=== PATIENT | male | born 1935 | race Caucasian/White ===

== ENCOUNTER → 2020-05-28 12:25 | Outpatient (REF) | payer MEDICARE, SELFPAY ==
--- NOTE | 2020-05-28 13:00 | CA_ITS ---
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 Moderately dilated left ventricle with severe LV systolic dysfunction with LVEF of 15-20% with multiple regional wall motion abnormality with grade 3 diastolic dysfunction 2. Moderate left atrial enlargement 3. Moderate to severe mitral regurgitation 4. Mildly elevated right ventricular systolic pressure 5. Mild aortic regurgitation 6. No pericardial effusion Findings Left Ventricle Moderately increased left ventricular cavity size. There is normal left ventricular wall thickness. The left ventricular systolic function is severely decreased. There is evidence of regional wall motion abnormalities. Spectral Doppler is indicative of a restrictive filling pattern. E/E prime ratio is >15, consistent with elevated filling pressures. Evidence suggests grade III (severe) diastolic dysfunction. Wall Motion Rest Echo Findings The anterior wall, entire lateral wall, the apical inferior, mid inferior, basal inferoseptal, basal anteroseptal, and mid anteroseptal segments are hypokinetic. The basal inferior, apical septum, and mid inferoseptal segments are akinetic. The apex segment is dyskinetic. Right Ventricle Normal right ventricular cavity size and systolic function. Atria The left atrium is moderately dilated. There is no evidence of interatrial shunt. The right atrium is mildly dilated. Aortic Valve The aortic valve was not well visualized. There is no aortic valve stenosis. There is mild aortic valve regurgitation. Mitral Valve There is mild anterior and posterior mitral leaflet thickening. There is moderate to severe mitral valve regurgitation. There is no mitral valve stenosis. There is moderate mitral annular dilatation. Pulmonic Valve The pulmonic valve is likely normal. There is trace pulmonic valve regurgitation. Tricuspid Valve Normal tricuspid valve structure. There is mild tricuspid valve regurgitation. Mild pulmonary hypertension is present. Great Vessels All visible segments of the aorta are normal in size. The pulmonary artery was not well visualized. Venous The inferior vena cava is normal in size and collapses greater than 50% with inspiration. Pericardium/Pleural There is no evidence of pericardial effusion. Prior Study Comparison No significant change compared to prior study dated: 05/23/2019. Measurements 2D Linear Measurements IVSd: 1.14 0.6-0.9/0.6-1.0 cm LVIDd: 6.62 3.9-5.3/4.2-5.9 cm LVIDd Index: 3.94 2.4-3.2/2.2-3.1 cm/m2 LVIDs: 6.13 2.0-3.6 cm LVPWd: 1.17 0.7-1.1 cm Ao Root: 3.20 2.1-3.5 cm LA Diam: 5.50 2.7-3.8/3.0-4.0 cm LAIDs Index: 3.27 1.5-2.3 cm/m2 LV Mass: 438.88 67-162/88-224 g LV Mass Index: 261.24 43-95/49-115 g/m2 LVOT Diam: 2.10 3.0+(-)1.3 cm 2D Systolic Function EF 4C: 16.20 >55% EF 2C: 16.40 >55% EF BiP: 14.10 >55% Mitral Valve MV Pk E: 1.44 MV PK A: 0.65 MV Decel Time: 165.00 E/A: 2.20 E'Lateral: 4.45 E'Medial: 5.22 E/E' Med: 27.60 E/E' Lat: 32.40 PHT: 48.00 MVA PHT: 4.58 Decel [place]: 8.71 Aortic Valve AoV Pk Kleber: 1.32 AoV Mn Kleber: 0.97 AoV VTI: 0.26 AoV Pk Grad: 7.00 Aov Mn Grad: 4.00 TAMIR Cont.VTI: 2.20 LVOT LVOT Pk Kleber: 0.88 LVOT Mn Kleber: 0.52 LVOT VTI: 0.16 LVOT Pk Grad: 3.00 LVOT Mn Grad: 1.00 LVOT Diam: 2.10 LVOT Area: 3.46 Diastolic Function MV Pk E: 1.44 MV Pk A: 0.65 E/A: 2.20 E'Medial: 5.22 E/E' Med: 27.60 E' Laterial: 4.45 E/E' Lat: 32.40 Tricuspid Valve TR Pk Kleber: 3.17 TR Pk Grad: 40.00 RA Press: 3.00 RVSP: 43.00 Great Vessels Aorta Ao Root-2D: 3.20 2.0-3.7 cm Ao Asc: 3.10 2.1-3.4 cm Pulmonary Valve PV Pk Kleber: 0.90 Peak PV Grad: 3.00 Updated in Other Vendor System with Status of Final Martínez Rushing MD electronically signed on 05/28/2020 3:06:25 PM with status of Final
== END ==
LOC: HO.CARD 12:25
PROVIDERS: PCP Family Medicine; Visit Provider Internal Medicine Cardiovascular Disease
DX: I50.9 Heart failure, unspecified (principal); I25.5 Ischemic cardiomyopathy; I25.10 Atherosclerotic heart disease of native coronary artery without angina pectoris; Z95.1 Presence of aortocoronary bypass graft
CPT/HCPCS: 93225; 93226; 93306

== ENCOUNTER → 2020-06-02 12:59 | Outpatient (BNVA) | payer MEDICARE, SELFPAY | PROVIDERS: Visit Provider Internal Medicine Cardiovascular Disease | DX: I20.8 Other forms of angina pectoris (principal); I50.22 Chronic systolic (congestive) heart failure; I25.5 Ischemic cardiomyopathy; Z95.1 Presence of aortocoronary bypass graft | CPT/HCPCS: 93005; 99212 ==

== ENCOUNTER → 2020-06-10 09:45 | Outpatient (REF) | payer MEDICARE, SELFPAY ==
--- NOTE | 2020-06-10 | NM_ITS ---
Myocardial perfusion study Indication: Chest discomfort with ischemic cardiomyopathy to evaluate for myocardial ischemia Technique: The patient was brought in for a Lexiscan perfusion study on 06/10/2020. Patient performed low-level exercise and was injected 0.4 mg of Lexiscan intravenously. Within a minute of injection, 25 mCi of sestamibi was given intravenously. Images were obtained using the SPECT gamma camera interlaced with the gating device. Images were obtained in supine position. Resting perfusion study was performed on 06/12/2020. Patient was administered any 5 mCi of sestamibi intravenously at rest. Images were then obtained in supine position. Images obtained with and without CT attenuation. Total DLP 65 mGy-cm. Images were processed with the software and compared side to side in short axis, horizontal long axis and vertical long axis views. Findings: The stress perfusion study showed large area of absent uptake in the distal anterior, apex and inferoapical distal septum of LV myocardium. Mildly to moderately reduced uptake in the mid and inferior wall of the LV myocardium. Absent uptake in the distal lateral and mildly reduced uptake in the mid and basal inferolateral and lateral wall of the LV myocardium. The gated study shows severely reduced LV systolic function with calculated LVEF of 19%. LV cavity is severely dilated size. The gated study shows severe hypokinesis of all segments and akinesis of the apex and adjacent area.. Resting study shows minimal redistribution some areas of the LV myocardium.. Gating at rest reveals diffuse wall motion hypokinesis with ejection fraction at 20%. 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 NM/NM alexandra perf SPECT rest & str Impression: 1. Myocardial perfusion imaging study shows large area of infarcted myocardium 2. Gated LVEF is 19% 3. Transient ischemic dilatation not present but LV cavity is dilated EKG is nondiagnostic for ischemia
--- NOTE | 2020-06-10 09:50 | CA_ITS ---
Acquisition Time: 2020-06-10 11:16:42 Total Exercise Time: 00:02:00 Test Indications: Chest Pain Medications: Protocol: LEXISCAN Max HR: 093 BPM 68% of Pred: 136 BPM Max BP: 108/062 mmHG Max Work Load: 1.0 METS Pharmacological stress test using Lexiscan while sitting. Pt tolerated well. Denies any anginal sx. EKG with incomplete LBBBand PVC's. Non-diagnostic for ischemia. Nuclear images to follow. Normotensive response to test. Test reviewed with Dr. Shearer. Referred By: Martínez Rushing Overread By: Karen Mina
== END ==
LOC: HO.CARD 09:45
PROVIDERS: Visit Provider Internal Medicine Cardiovascular Disease
DX: I25.5 Ischemic cardiomyopathy (principal); I20.8 Other forms of angina pectoris
CPT/HCPCS: 78452; 93017; A9500; J0280; J2785

== ENCOUNTER → 2020-06-20 10:50 | Outpatient (BNVA) | payer MEDICARE, SELFPAY | PROVIDERS: PCP Family Medicine; Visit Provider Internal Medicine Cardiovascular Disease | DX: I50.22 Chronic systolic (congestive) heart failure (principal); I25.5 Ischemic cardiomyopathy; I25.10 Atherosclerotic heart disease of native coronary artery without angina pectoris; R06.02 Shortness of breath | CPT/HCPCS: 99212 ==

== ENCOUNTER → 2020-07-17 09:06 | Outpatient (BNVA) | payer MEDICARE, SELFPAY | PROVIDERS: PCP Family Medicine; Visit Provider Internal Medicine Pulmonary Disease | DX: J44.9 Chronic obstructive pulmonary disease, unspecified (principal); R06.02 Shortness of breath | CPT/HCPCS: 99202 ==

== ENCOUNTER 2020-07-22 10:07 | Outpatient (REF) | payer MEDICARE, SELFPAY ==
[2020-07-22 13:53] LABS: Hematocrit 40.8 % (42-52); Hemoglobin 13.3 g/dl (14.0-18.0); Mean Corpuscular HGB Conc 32.6 g/dl (31.0-36.0); Mean Corpuscular Hemoglobin 33.3 pg (27.0-33.0); Mean Corpuscular Volume 102.3 fL (80-98); Mean Platelet Volume 11.4 fL (9.4-12.4); Platelet Count 143 X10*3/uL (160-400); Red Blood Count 3.99 X10*6/uL (4.60-5.80); Red Cell Distribution Width 14.7 % (11.0-16.0); White Blood Count 4.7 X10*3/uL (4.8-10.8)
[2020-07-22 13:59] LABS: INTERNATIONAL NORM RATIO 1.1 (0.9-1.1); Prothrombin Time 13.1 SEC (10.8-13.0)
[2020-07-22 14:13] LABS: Anion Gap 15 (12-20); Blood Urea Nitrogen 27 mg/dL (9-16); Calcium 9.2 mg/dL (8.4-10.2); Carbon Dioxide 28 mmol/L (22-29); Chloride 104 mmol/L (96-108); Estimated Glomerular Filt Rate 55; Glucose Random 252 mg/dL (60-115); Potassium 3.8 mmol/l (3.3-5.1); Sodium 143 mmol/L (135-145)
[2020-07-22 14:24] LABS: B Type Natriuretic Peptide 2547 pg/mL (<100)
== END 2020-07-22 10:08 | disposition home or self-care (01) ==
LOC: HO.LAB 10:07
PROVIDERS: PCP Family Medicine; Visit Provider Internal Medicine Cardiovascular Disease
DX: R06.02 Shortness of breath (principal); I20.8 Other forms of angina pectoris; I50.22 Chronic systolic (congestive) heart failure; I34.0 Nonrheumatic mitral (valve) insufficiency; I25.5 Ischemic cardiomyopathy; I25.10 Atherosclerotic heart disease of native coronary artery without angina pectoris; Z79.899 Other long term (current) drug therapy; Z79.82 Long term (current) use of aspirin
CPT/HCPCS: 36415; 80048; 83880; 85027; 85610; 93005; 99212

== ENCOUNTER 2020-08-01 09:09 | Outpatient (REF) | payer MEDICARE, SELFPAY ==
--- NOTE | 2020-08-01 09:14 | XR_ITS ---
EXAMINATION: XR CHEST CLINICAL INFORMATION: COPD. COMPARISON: Chest 10/11/2018 TECHNIQUE: 2 views of the chest were obtained. FINDINGS: There is mild cardiomegaly with evidence of previous CABG. The lungs are expanded with patchy opacity seen in the left lung base retrocardiac area likely infiltrate/atelectasis or combination. Rest of lungs are well-expanded and clear. No gross bony abnormality seen. XR/XR chest 2V IMPRESSION: Cardiomegaly with left lower lobe infiltrate/atelectasis. CABG changes, unchanged to chest x-ray 10/11/2018 exam.
== END 2020-08-01 09:10 | disposition home or self-care (01) ==
LOC: HO.RESP 09:09
PROVIDERS: PCP Family Medicine; Visit Provider Internal Medicine Pulmonary Disease
DX: J44.9 Chronic obstructive pulmonary disease, unspecified (principal)
CPT/HCPCS: 71046

== ENCOUNTER 2020-08-06 08:48 | Inpatient (IN) | payer MEDICARE, SELFPAY ==
[2020-08-06] VITALS (7 sets, daily range): BP systolic 97–123; BP diastolic 50–76; PULSE 64–92; RESP 16–28; TEMP 36.7; O2SAT 9–98; BMI 28.3
--- NOTE | 2020-08-06 09:02 | ED.CHESTPAIN ---
HPI - Chest Pain General Chief Complaint: Syncope <Kj Melchor NP - Last Filed: 08/08/20 12:28> Stated Complaint: CHEST PAIN <Kj Melchor NP - Last Filed: 08/08/20 12:28> Time Seen by Provider: 08/06/20 09:00 <Kj Melchor NP - Last Filed: 08/08/20 12:28> Source: EMS <Kj Melchor NP - Last Filed: 08/08/20 12:28> Mode of arrival: EMS <Kj Melchor NP - Last Filed: 08/08/20 12:28> Limitations: no limitations <Kj Melchor NP - Last Filed: 08/08/20 12:28> History of Present Illness HPI narrative: Mr. Walt Covington is a pleasant but poor historian 85-year-old male with history that is significant for coronary artery disease status post OR multiple stenting as well as recent catheterization that showed patent stents, chronic heart failure with reduced ejection fraction, chronic obstructive pulmonary disease, diabetes, hyperlipidemia, mitral valve regurgitation along with other history as noted below he comes in today for having chest pain this morning after ambulating from his apartment to the front of the building and having severe pain in the left-sided chest resulting him to lower himself to the ground from the billing pedestrians help him sit up and EMS was called. Reports he gets these pains for a while now he has seen convalescent sitter and is not sure what medication he is taking. Most history is gathered from EMR and previous cardiology visit. <Kj Melchor NP - Last Filed: 08/08/20 12:28> MD complaint: chest pain <Kj Melchor NP - Last Filed: 08/08/20 12:28> Pertinent past history: coronary artery disease, asthma and CABG <Kj Melchor NP - Last Filed: 08/08/20 12:28> Onset (ago): hour(s) <Kj Melchor NP - Last Filed: 08/08/20 12:28> Timing of current episode: episodic and now resolved <Kj Melchor NP - Last Filed: 08/08/20 12:28> Prior episodes: Yes <Kj Melchor NP - Last Filed: 08/08/20 12:28> Onset: during exertion <Kj Melchor NP - Last Filed: 08/08/20 12:28> Pain location: substernal <Kj Melchor NP - Last Filed: 08/08/20 12:28> Pain radiation: none <Kj Melchor NP - Last Filed: 08/08/20 12:28> Severity: severe <Kj Melchor NP - Last Filed: 08/08/20 12:28> Quality: tightness <Kj Melchor NP - Last Filed: 08/08/20 12:28> Relieving factors: other (Rest , ASA ) <Kj Melchor NP - Last Filed: 08/08/20 12:28> Exacerbating factors: exertion <Kj Melchor NP - Last Filed: 08/08/20 12:28> Treatment prior to arrival: aspirin <Kj Melchor NP - Last Filed: 08/08/20 12:28> Related Data Home Medications: Home Medications Medication Instructions Recorded Confirmed aspirin 81 mg tablet,delayed 81 mg PO DAILY 06/02/20 08/06/20 release atorvastatin 80 mg tablet 80 mg PO DAILY 06/02/20 08/06/20 cholecalciferol (vitamin D3) 50 50 mcg PO DAILY 06/02/20 08/06/20 mcg (2,000 unit) capsule famotidine 20 mg tablet 20 mg PO DAILY 06/02/20 08/06/20 furosemide 80 mg tablet 80 mg PO DAILY tab 06/02/20 08/06/20 glipizide 5 mg tablet 5 mg PO DAILY 06/02/20 08/06/20 metoprolol succinate 50 mg 50 mg PO DAILY 06/02/20 08/06/20 tablet,extended release 24 hr sacubitril 24 mg-valsartan 26 mg 1 tab PO BID 06/02/20 08/06/20 tablet Combivent Respimat 1 puff INHALATION QID 08/06/20 08/06/20 Previous Rx's Medication Instructions Recorded tiotropium 2.5 mcg-olodaterol 2.5 2 puff INHALATION DAILY 30 Days #1 07/17/20 mcg/actuation mist for inhalation ea ranolazine 500 mg tablet,extended 500 mg PO BID #60 tab 07/22/20 release,12 hr isosorbide mononitrate 30 mg 30 mg PO QAM #30 tab 08/05/20 tablet,extended release 24 hr nitroglycerin 0.4 mg sublingual 0.4 mg SUBLINGUAL Q5M PRN #20 tab 08/15/20 tablet <Kj Melchor NP - Last Filed: 08/08/20 12:28> Allergies/Adverse Reactions: Allergies Allergy/AdvReac Type Severity Reaction Status Date / Time No Known Allergies Allergy Unknown NOT Verified 08/14/20 10:03 APPLICABLE <Kj Melchor NP - Last Filed: 08/08/20 12:28> Review of Systems Review of Systems: Constitutional: No Weight loss, No Fever, No Chills, No Night Sweats, No Fatigue, No Malaise ENT/Mouth: No Hearing loss, No Ear Pain, No Nasal Congestion, No Sinus Pain, No Hoarseness, No sore throat, No Rhinorrhea, No Swallowing Difficulty Eyes: No Eye Pain, No Swelling, No Redness, No Foreign Body, No Discharge, No Vision Changes Cardiovascular: As noted per HPI, No Orthopnea, No Edema, No Palpitations Respiratory: No Cough, No Sputum, No Wheezing, No Smoke Exposure, No Dyspnea Gastrointestinal: No Nausea, No Vomiting, No Diarrhea, No Constipation, No abdominal Pain, No Hematochezia, No Melena Genitourinary: no irregular bleeding, No Dysuria, No Urinary Frequency, No Hematuria, No Urinary Incontinence, No Urgency, No Flank Pain, No Urinary Flow Musculoskeletal: No joint pain, No Myalgias, No Joint Swelling Skin: No Skin Lesions, No rash Neuro: No Weakness, No Numbness, No Paresthesias, No Loss of Consciousness, No Dizziness, No Headache Psych: No Social Issues Heme/Lymph: No Bruising, No Bleeding,No Lymphadenopathy Endocrine: No Polyuria, No Polydipsia, No Temperature Intolerance <Kj Melchor NP - Last Filed: 08/08/20 12:28> Yes all other systems are reviewed and are negative <Kj Melchor NP - Last Filed: 08/08/20 12:28> [facility] Past Medical History Medical History: Medical History (Updated 08/07/20 @ 15:33 by Ramin Shearer MD) Atherosclerotic cardiovascular disease CAD (coronary artery disease) Chronic HFrEF (heart failure with reduced ejection fraction) COPD (chronic obstructive pulmonary disease) Diabetes mellitus History of myocardial infarction Hyperlipidemia Ischemic cardiomyopathy LBBB (left bundle branch block) Mitral regurgitation Nonrheumatic mitral valve regurgitation <Kj Melchor NP - Last Filed: 08/08/20 12:28> Surgical History: Surgical History (Updated 08/07/20 @ 15:33 by Ramin Shearer MD) S/P CABG x 3 <Kj Melchor NP - Last Filed: 08/08/20 12:28> Family History Family History: Family History Father No problems noted. Mother No problems noted. <Kj Melchor NP - Last Filed: 08/08/20 12:28> Social History Social History: Social History Household Members: None Housing: Apartment Smoking Status: Former smoker Tobacco Type: Cigarette service: No Current occupational status: retired <Kj Melchor NP - Last Filed: 08/08/20 12:28> Physical Exam Vital Signs: Vital Signs: Last Vital Signs Temp 98.3 F 08/09/20 11:23 Pulse 73 08/09/20 11:23 Resp 20 08/09/20 11:23 BP 92/60 08/09/20 11:23 Pulse Ox 93 08/09/20 11:23 Body Mass Index 28.3 Reviewed <Kj Melchor NP - Last Filed: 08/08/20 12:28> Vital Signs: Last Vital Signs Temp 98.3 F 08/09/20 11:23 Pulse 73 08/09/20 11:23 Resp 20 08/09/20 11:23 BP 92/60 08/09/20 11:23 Pulse Ox 93 08/09/20 11:23 Body Mass Index 28.3 <Eduard Vences MD - Last Filed: 08/25/20 06:41> Const: General: cooperative and healthy appearing; No acute distress or intoxicated appearing <Kj Melchor NP - Last Filed: 08/08/20 12:28> Nutritional Appearance: average body habitus <Kj Melchor NP - Last Filed: 08/08/20 12:28> Orientation/consciousness: patient oriented x3 <Kj Melchor NP - Last Filed: 08/08/20 12:28> HENMT: Head: Yes normal to inspection <Kj Melchor, GENER[employer] - Last Filed: 08/08/20 12:28> Ears: hearing grossly normal bilaterally <Kj Melchor - Last Filed: 08/08/20 12:28> Eyes: General: appearance normal, both eyes and all related structures <[facility] Melchor, - Last Filed: 08/08/20 12:28> Visual Hameed: normal visual hameed by confrontation <[facility] Melchor - Last Filed: 08/08/20 12:28> Neck: Neck: Yes normal visual inspection, No positive Brudzinski's sign, No positive Kernig's sign and No tender <[facility] Melchor, - Last Filed: 08/08/20 12:28> Thyroid: Thyroid normal <[facility] Melchor, - Last Filed: 08/08/20 12:28> Chest: Chest palpation & inspection: normal inspection of the chest <Kj Jill - Last Filed: 08/08/20 12:28> Resp: Effort & Inspection: normal respiratory effort <Kj Melchor, - Last Filed: 08/08/20 12:28> Auscultation: crackles on the right and on the left <Kj Melchor, - Last Filed: 08/08/20 12:28> Cardio: Jugular venous distension: no JVD <[facility] Melchor, - Last Filed: 08/08/20 12:28> Rhythm: regular rhythm <[facility] Jill - Last Filed: 08/08/20 12:28> Heart sounds: S1 normal heart sound present and S2 normal heart sound present <[facility] Melchor, - Last Filed: 08/08/20 12:28> GI: Inspection: Yes normal to inspection <[facility] Jill [employer] - Last Filed: 08/08/20 12:28> Percussion: Yes normal to percussion <[facility] Melchor, - Last Filed: 08/08/20 12:28> Auscultation: normal bowel sounds <[facility] Jill - Last Filed: 08/08/20 12:28> : General: Yes no CVA tenderness <Kj Melchor NP - Last Filed: 08/08/20 12:28> Back/Spine/Pelvis: Back: no CVA tenderness <Kj Melchor NP - Last Filed: 08/08/20 12:28> Skin: General skin exam: no rashes or lesions noted <Kj Melchor NP - Last Filed: 08/08/20 12:28> Neuro: General: patient oriented x3 <Kj Melchor NP - Last Filed: 08/08/20 12:28> Extrem: General: Yes normal to inspection <Kj Melchor NP - Last Filed: 08/08/20 12:28> Course Course Course Narrative: I have reviewed the chart <Eduard Vences MD - Last Filed: 08/25/20 06:41> Consultations Consultation #1: Case discussed with Dr. Rushing who is very familiar with the patient suspicion for some medication compliance given that he has BNP is been trending up. Recommendation for admission he is post be on Lasix 80 mg b.i.d. he was on 80 prior to this. He did have a cardiac catheterization done a month ago prior to that echo several months prior to that. <Kj Melchor NP - Last Filed: 08/08/20 12:28> Consultation #2: Case discussed with the [facility] hospitalist for admission. <Kj Melchor NP - Last Filed: 08/08/20 12:28> MDM - Chest Pain Differential Diagnosis Differential diagnosis: Likely unstable angina pectoris, atypical chest pain and chest pain; Unlikely fracture of rib, pneumothorax, stable angina, st elevation myocardial infarction, costochondritis and biliary colic <Kj Melchor NP - Last Filed: 08/08/20 12:28> Differential diagnosis: CHF <Kj Melchor NP - Last Filed: 08/08/20 12:28> Medical Records Data Attestation: I reviewed the patient's medical records. <Kj Melchor NP - Last Filed: 08/08/20 12:28> Lab Data Attestation: I reviewed the patient's lab results. <Kj Melchor NP - Last Filed: 08/08/20 12:28> Result diagrams: : 08/07/20 06:18 02/06/21 06:08 <Kj Melchor NP - Last Filed: 08/08/20 12:28> Labs: Lab Results 08/06/20 08/06/20 08/06/20 Range/Units 09:37 09:37 09:37 WBC 5.1 (4.8-10.8) X10*3/uL RBC 4.08 L (4.60-5.80) X10*6/uL Hgb 13.5 L (14.0-18.0) g/dl Hct 40.7 L (42-52) % MCV 99.8 H (80-98) fL MCH 33.1 H (27.0-33.0) pg MCHC 33.2 (31.0-36.0) g/dl RDW 14.6 (11.0-16.0) % Plt Count 123 L (160-400) X10*3/uL MPV 11.9 (9.4-12.4) fL Immature Gran % (Auto) 0.2 (0.0-0.4) % Neut % (Auto) 57.8 (45-73) % Lymph % (Auto) 27.6 (20-40) % [place] % (Auto) 10.7 (2-11) % Eos % (Auto) 2.7 (0-4) % Baso % (Auto) 1.0 (0-2) % Lymph # (Auto) 1.4 (1.2-4.9) X10*3/uL [place] # (Auto) 0.6 (0.1-1.2) X10*3/uL Eos # (Auto) 0.1 (0.0-0.4) X10*3/uL Baso # (Auto) 0.1 (0.0-0.2) X10*3/uL Abs Immat Gran (auto) 0.01 (0.00-0.03) X10*3/uL Absolute Neuts (auto) 3.0 (2.0-8.3) X10*3/uL Absolute Nucleated RBC 0.000 (0.0-0.012) X10*3/uL Nucleated RBC % (auto) 0.0 (0.0-0.2) /100WBC PT 13.6 H (10.8-13.0) SEC INR 1.1 (0.9-1.1) APTT 31.7 (24.1-38.0) SEC D-Dimer 679 NG/ML Sodium 141 (135-145) mmol/L Potassium 3.8 (3.3-5.1) mmol/L Chloride 104 (96-108) mmol/L Carbon Dioxide 24 (22-29) mmol/L Anion Gap 17 (12-20) BUN 19 H (9-16) mg/dL Creatinine 1.34 (0.5-1.4) mg/dL Estim Creat Clear Calc 37.9 Estimated GFR 51 Random Glucose 200 H (60-115) mg/dL Calcium 8.5 D (8.4-10.2) mg/dL Total Bilirubin 1.7 H (0.0-1.0) mg/dL AST 18 (5-37) U/L ALT 23 (0-40) U/L Alkaline Phosphatase 74 (39-117) U/L Troponin I High Sens (<3.5-35.0) ng/L B-Natriuretic Peptide (<100) pg/mL Total Protein 6.0 L (6.5-8.0) g/dL Albumin 3.7 (3.5-5.0) g/dL Urine Color Urine Appearance Urine pH (5.0-8.0) Ur Specific [place] (1.005-1.025) Urine Protein (NEG-TRACE) MG/DL Urine Glucose (UA) (NEG) MG/DL Urine Ketones (NEG) MG/DL Urine Blood (NEG) Urine Nitrite (NEG) Ur Leukocyte Esterase (NEG) Urine RBC (0) /HPF Urine WBC (0-4) /HPF Ur Squamous Epith Cells /LPF Urine Bacteria /LPF COVID-19 (PETE) (Negative) COVID-19 Clin Com 08/06/20 08/06/20 08/06/20 Range/Units 09:37 09:37 09:37 WBC (4.8-10.8) X10*3/uL RBC (4.60-5.80) X10*6/uL Hgb (14.0-18.0) g/dl Hct (42-52) % MCV (80-98) fL MCH (27.0-33.0) pg MCHC (31.0-36.0) g/dl RDW (11.0-16.0) % Plt Count (160-400) X10*3/uL MPV (9.4-12.4) fL Immature Gran % (Auto) (0.0-0.4) % Neut % (Auto) (45-73) % Lymph % (Auto) (20-40) % [place] % (Auto) (2-11) % Eos % (Auto) (0-4) % Baso % (Auto) (0-2) % Lymph # (Auto) (1.2-4.9) X10*3/uL [place] # (Auto) (0.1-1.2) X10*3/uL Eos # (Auto) (0.0-0.4) X10*3/uL Baso # (Auto) (0.0-0.2) X10*3/uL Abs Immat Gran (auto) (0.00-0.03) X10*3/uL Absolute Neuts (auto) (2.0-8.3) X10*3/uL Absolute Nucleated RBC (0.0-0.012) X10*3/uL Nucleated RBC % (auto) (0.0-0.2) /100WBC PT (10.8-13.0) SEC INR (0.9-1.1) APTT (24.1-38.0) SEC D-Dimer NG/ML Sodium (135-145) mmol/L Potassium (3.3-5.1) mmol/L Chloride (96-108) mmol/L Carbon Dioxide (22-29) mmol/L Anion Gap (12-20) BUN (9-16) mg/dL Creatinine (0.5-1.4) mg/dL Estim Creat Clear Calc Estimated GFR Random Glucose (60-115) mg/dL Calcium (8.4-10.2) mg/dL Total Bilirubin (0.0-1.0) mg/dL AST (5-37) U/L ALT (0-40) U/L Alkaline Phosphatase (39-117) U/L Troponin I High Sens 48.0 H (<3.5-35.0) ng/L B-Natriuretic Peptide 3132 H (<100) pg/mL Total Protein (6.5-8.0) g/dL Albumin (3.5-5.0) g/dL Urine Color Urine Appearance Urine pH (5.0-8.0) Ur Specific [place] (1.005-1.025) Urine Protein (NEG-TRACE) MG/DL Urine Glucose (UA) (NEG) MG/DL Urine Ketones (NEG) MG/DL Urine Blood (NEG) Urine Nitrite (NEG) Ur Leukocyte Esterase (NEG) Urine RBC (0) /HPF Urine WBC (0-4) /HPF Ur Squamous Epith Cells /LPF Urine Bacteria /LPF COVID-19 (PETE) Negative (Negative) COVID-19 Clin Com See Note 08/06/20 08/06/20 Range/Units 11:30 12:55 WBC (4.8-10.8) X10*3/uL RBC (4.60-5.80) X10*6/uL Hgb (14.0-18.0) g/dl Hct (42-52) % MCV (80-98) fL MCH (27.0-33.0) pg MCHC (31.0-36.0) g/dl RDW (11.0-16.0) % Plt Count (160-400) X10*3/uL MPV (9.4-12.4) fL Immature Gran % (Auto) (0.0-0.4) % Neut % (Auto) (45-73) % Lymph % (Auto) (20-40) % [place] % (Auto) (2-11) % Eos % (Auto) (0-4) % Baso % (Auto) (0-2) % Lymph # (Auto) (1.2-4.9) X10*3/uL [place] # (Auto) (0.1-1.2) X10*3/uL Eos # (Auto) (0.0-0.4) X10*3/uL Baso # (Auto) (0.0-0.2) X10*3/uL Abs Immat Gran (auto) (0.00-0.03) X10*3/uL Absolute Neuts (auto) (2.0-8.3) X10*3/uL Absolute Nucleated RBC (0.0-0.012) X10*3/uL Nucleated RBC % (auto) (0.0-0.2) /100WBC PT (10.8-13.0) SEC INR (0.9-1.1) APTT (24.1-38.0) SEC D-Dimer NG/ML Sodium (135-145) mmol/L Potassium (3.3-5.1) mmol/L Chloride (96-108) mmol/L Carbon Dioxide (22-29) mmol/L Anion Gap (12-20) BUN (9-16) mg/dL Creatinine (0.5-1.4) mg/dL Estim Creat Clear Calc Estimated GFR Random Glucose (60-115) mg/dL Calcium (8.4-10.2) mg/dL Total Bilirubin (0.0-1.0) mg/dL AST (5-37) U/L ALT (0-40) U/L Alkaline Phosphatase (39-117) U/L Troponin I High Sens 49.0 H (<3.5-35.0) ng/L B-Natriuretic Peptide (<100) pg/mL Total Protein (6.5-8.0) g/dL Albumin (3.5-5.0) g/dL Urine Color YELLOW Urine Appearance CLEAR Urine pH 6.0 (5.0-8.0) Ur Specific [place] 1.020 (1.005-1.025) Urine Protein NEG (NEG-TRACE) MG/DL Urine Glucose (UA) 100 H (NEG) MG/DL Urine Ketones NEG (NEG) MG/DL Urine Blood TRACE (NEG) Urine Nitrite NEG (NEG) Ur Leukocyte Esterase NEG (NEG) Urine RBC 0-2 (0) /HPF Urine WBC 5-9 H (0-4) /HPF Ur Squamous Epith Cells NONE /LPF Urine Bacteria 2+ /LPF COVID-19 (PETE) (Negative) COVID-19 Clin Com <Kj Melchor GENER[employer]ENT - Last Filed: 08/08/20 12:28> Lab Results 08/06/20 08/06/20 08/06/20 Range/Units 09:37 09:37 09:37 WBC 5.1 (4.8-10.8) X10*3/uL RBC 4.08 L (4.60-5.80) X10*6/uL Hgb 13.5 L (14.0-18.0) g/dl Hct 40.7 L (42-52) % MCV 99.8 H (80-98) fL MCH 33.1 H (27.0-33.0) pg MCHC 33.2 (31.0-36.0) g/dl RDW 14.6 (11.0-16.0) % Plt Count 123 L (160-400) X10*3/uL MPV 11.9 (9.4-12.4) fL Immature Gran % (Auto) 0.2 (0.0-0.4) % Neut % (Auto) 57.8 (45-73) % Lymph % (Auto) 27.6 (20-40) % [place] % (Auto) 10.7 (2-11) % Eos % (Auto) 2.7 (0-4) % Baso % (Auto) 1.0 (0-2) % Lymph # (Auto) 1.4 (1.2-4.9) X10*3/uL [place] # (Auto) 0.6 (0.1-1.2) X10*3/uL Eos # (Auto) 0.1 (0.0-0.4) X10*3/uL Baso # (Auto) 0.1 (0.0-0.2) X10*3/uL Abs Immat Gran (auto) 0.01 (0.00-0.03) X10*3/uL Absolute Neuts (auto) 3.0 (2.0-8.3) X10*3/uL Absolute Nucleated RBC 0.000 (0.0-0.012) X10*3/uL Nucleated RBC % (auto) 0.0 (0.0-0.2) /100WBC PT 13.6 H (10.8-13.0) SEC INR 1.1 (0.9-1.1) APTT 31.7 (24.1-38.0) SEC D-Dimer 679 NG/ML Sodium 141 (135-145) mmol/L Potassium 3.8 (3.3-5.1) mmol/L Chloride 104 (96-108) mmol/L Carbon Dioxide 24 (22-29) mmol/L Anion Gap 17 (12-20) BUN 19 H (9-16) mg/dL Creatinine 1.34 (0.5-1.4) mg/dL Estim Creat Clear Calc 37.9 Estimated GFR 51 Random Glucose 200 H (60-115) mg/dL Calcium 8.5 D (8.4-10.2) mg/dL Total Bilirubin 1.7 H (0.0-1.0) mg/dL AST 18 (5-37) U/L ALT 23 (0-40) U/L Alkaline Phosphatase 74 (39-117) U/L Troponin I High Sens (<3.5-35.0) ng/L B-Natriuretic Peptide (<100) pg/mL Total Protein 6.0 L (6.5-8.0) g/dL Albumin 3.7 (3.5-5.0) g/dL Urine Color Urine Appearance Urine pH (5.0-8.0) Ur Specific [place] (1.005-1.025) Urine Protein (NEG-TRACE) MG/DL Urine Glucose (UA) (NEG) MG/DL Urine Ketones (NEG) MG/DL Urine Blood (NEG) Urine Nitrite (NEG) Ur Leukocyte Esterase (NEG) Urine RBC (0) /HPF Urine WBC (0-4) /HPF Ur Squamous Epith Cells /LPF Urine Bacteria /LPF COVID-19 (PETE) (Negative) COVID-19 Clin Com 08/06/20 08/06/20 08/06/20 Range/Units 09:37 09:37 09:37 WBC (4.8-10.8) X10*3/uL RBC (4.60-5.80) X10*6/uL Hgb (14.0-18.0) g/dl Hct (42-52) % MCV (80-98) fL MCH (27.0-33.0) pg MCHC (31.0-36.0) g/dl RDW (11.0-16.0) % Plt Count (160-400) X10*3/uL MPV (9.4-12.4) fL Immature Gran % (Auto) (0.0-0.4) % Neut % (Auto) (45-73) % Lymph % (Auto) (20-40) % [place] % (Auto) (2-11) % Eos % (Auto) (0-4) % Baso % (Auto) (0-2) % Lymph # (Auto) (1.2-4.9) X10*3/uL [place] # (Auto) (0.1-1.2) X10*3/uL Eos # (Auto) (0.0-0.4) X10*3/uL Baso # (Auto) (0.0-0.2) X10*3/uL Abs Immat Gran (auto) (0.00-0.03) X10*3/uL Absolute Neuts (auto) (2.0-8.3) X10*3/uL Absolute Nucleated RBC (0.0-0.012) X10*3/uL Nucleated RBC % (auto) (0.0-0.2) /100WBC PT (10.8-13.0) SEC INR (0.9-1.1) APTT (24.1-38.0) SEC D-Dimer NG/ML Sodium (135-145) mmol/L Potassium (3.3-5.1) mmol/L Chloride (96-108) mmol/L Carbon Dioxide (22-29) mmol/L Anion Gap (12-20) BUN (9-16) mg/dL Creatinine (0.5-1.4) mg/dL Estim Creat Clear Calc Estimated GFR Random Glucose (60-115) mg/dL Calcium (8.4-10.2) mg/dL Total Bilirubin (0.0-1.0) mg/dL AST (5-37) U/L ALT (0-40) U/L Alkaline Phosphatase (39-117) U/L Troponin I High Sens 48.0 H (<3.5-35.0) ng/L B-Natriuretic Peptide 3132 H (<100) pg/mL Total Protein (6.5-8.0) g/dL Albumin (3.5-5.0) g/dL Urine Color Urine Appearance Urine pH (5.0-8.0) Ur Specific [place] (1.005-1.025) Urine Protein (NEG-TRACE) MG/DL Urine Glucose (UA) (NEG) MG/DL Urine Ketones (NEG) MG/DL Urine Blood (NEG) Urine Nitrite (NEG) Ur Leukocyte Esterase (NEG) Urine RBC (0) /HPF Urine WBC (0-4) /HPF Ur Squamous Epith Cells /LPF Urine Bacteria /LPF COVID-19 (PETE) Negative (Negative) COVID-19 Clin Com See Note 08/06/20 08/06/20 Range/Units 11:30 12:55 WBC (4.8-10.8) X10*3/uL RBC (4.60-5.80) X10*6/uL Hgb (14.0-18.0) g/dl Hct (42-52) % MCV (80-98) fL MCH (27.0-33.0) pg MCHC (31.0-36.0) g/dl RDW (11.0-16.0) % Plt Count (160-400) X10*3/uL MPV (9.4-12.4) fL Immature Gran % (Auto) (0.0-0.4) % Neut % (Auto) (45-73) % Lymph % (Auto) (20-40) % [place] % (Auto) (2-11) % Eos % (Auto) (0-4) % Baso % (Auto) (0-2) % Lymph # (Auto) (1.2-4.9) X10*3/uL [place] # (Auto) (0.1-1.2) X10*3/uL Eos # (Auto) (0.0-0.4) X10*3/uL Baso # (Auto) (0.0-0.2) X10*3/uL Abs Immat Gran (auto) (0.00-0.03) X10*3/uL Absolute Neuts (auto) (2.0-8.3) X10*3/uL Absolute Nucleated RBC (0.0-0.012) X10*3/uL Nucleated RBC % (auto) (0.0-0.2) /100WBC PT (10.8-13.0) SEC INR (0.9-1.1) APTT (24.1-38.0) SEC D-Dimer NG/ML Sodium (135-145) mmol/L Potassium (3.3-5.1) mmol/L Chloride (96-108) mmol/L Carbon Dioxide (22-29) mmol/L Anion Gap (12-20) BUN (9-16) mg/dL Creatinine (0.5-1.4) mg/dL Estim Creat Clear Calc Estimated GFR Random Glucose (60-115) mg/dL Calcium (8.4-10.2) mg/dL Total Bilirubin (0.0-1.0) mg/dL AST (5-37) U/L ALT (0-40) U/L Alkaline Phosphatase (39-117) U/L Troponin I High Sens 49.0 H (<3.5-35.0) ng/L B-Natriuretic Peptide (<100) pg/mL Total Protein (6.5-8.0) g/dL Albumin (3.5-5.0) g/dL Urine Color YELLOW Urine Appearance CLEAR Urine pH 6.0 (5.0-8.0) Ur Specific [place] 1.020 (1.005-1.025) Urine Protein NEG (NEG-TRACE) MG/DL Urine Glucose (UA) 100 H (NEG) MG/DL Urine Ketones NEG (NEG) MG/DL Urine Blood TRACE (NEG) Urine Nitrite NEG (NEG) Ur Leukocyte Esterase NEG (NEG) Urine RBC 0-2 (0) /HPF Urine WBC 5-9 H (0-4) /HPF Ur Squamous Epith Cells NONE /LPF Urine Bacteria 2+ /LPF COVID-19 (PETE) (Negative) COVID-19 Clin Com <Eduard Vences MD - Last Filed: 08/25/20 06:41> Imaging Data Chest x-ray: Radiologist's impression: [address] [id number] ReportSigned Patient: Nando Infante DMR#: [id number]: [id number]:[id number]/Sex: 85 / MADM Date: 08/06/20Loc: [address]: Ordering Physician: Kj Melchor NP Date of Service: 08/06/20 Procedure(s): XR chest 1V Accession Number(s): [id number] cc: Kj Melchor NP~ EXAMINATION: XR CHEST CLINICAL INFORMATION: Chest pain COMPARISON: Previous chest x-rays most recent 08/01/2020 TECHNIQUE: Frontal view of the chest was obtained. FINDINGS: The cardiac silhouette is enlarged but stable. There are post-CABG changes. There is pulmonary venous redistribution and increased interstitial markings suggestive of mild CHF. There is a 4 mm dense nodule suggestive of a calcified granuloma that is stable. There is increased attenuation adjacent to this. Some of this may relate to overlying bony structures are inferior scapula and rib. There may be thickening of the right pleural fissure. No definite pleural effusion is seen. There is no pneumothorax. There is curvature of the thoracic spine to the right and mild degenerative change. XR/XR chest 1V IMPRESSION: Mild CHF. Dictated By:KARON JEFFERS MDSigned By:<Electronically signed by KARON JEFFERS MD in [place]>08/06/2038 DD/ [id number]/TT: [employer] Salesperson: JUAN <jK Melchor NP - Last Filed: 08/08/20 12:28> ECG Data ECG #1: Interpretation: Normal sinus rhythm Possible Left atrial enlargement Left bundle branch block Abnormal ECG When compared with ECG of 07-AUG-2019 06:41, QRS duration has increased QT has lengthened <Kj Melchor NP - Last Filed: 08/08/20 12:28> Discharge Plan Discharge Clinical Impression: Chronic HFrEF (heart failure with reduced ejection fraction), SOB (shortness of breath) on exertion <Kj Melchor NP - Last Filed: 08/08/20 12:28> Patient Disposition: Admitted As Inpatient <Kj Melchor NP - Last Filed: 08/08/20 12:28> Interventions: Admission Worksheet (ED) Last Done: 08/07/20 13:55 <Kj Melchor NP - Last Filed: 08/08/20 12:28> Discharge Date/Time: 08/07/20 13:56 <Kj Melchor NP - Last Filed: 08/08/20 12:28>
--- NOTE | 2020-08-06 09:08 | ECG_ITS ---
Test Reason : CHEST PAIN Blood Pressure : / mmHG Vent. Rate : 073 BPM Atrial Rate : 073 BPM P-R Int : 132 ms QRS Dur : 156 ms QT Int : 482 ms P-R-T Axes : 019 039 087 degrees QTc Int : 531 ms Normal sinus rhythm Possible Left atrial enlargement Left bundle branch block Abnormal ECG When compared with ECG of 07-AUG-2019 06:41, QRS duration has increased QT has lengthened Referred By: Kj Melchor Electronically Signed By:KELSEY WHARTON MD
--- NOTE | 2020-08-06 09:08 | XR_ITS ---
EXAMINATION: XR CHEST CLINICAL INFORMATION: Chest pain COMPARISON: Previous chest x-rays most recent 08/01/2020 TECHNIQUE: Frontal view of the chest was obtained. FINDINGS: The cardiac silhouette is enlarged but stable. There are post-CABG changes. There is pulmonary venous redistribution and increased interstitial markings suggestive of mild CHF. There is a 4 mm dense nodule suggestive of a calcified granuloma that is stable. There is increased attenuation adjacent to this. Some of this may relate to overlying bony structures are inferior scapula and rib. There may be thickening of the right pleural fissure. No definite pleural effusion is seen. There is no pneumothorax. There is curvature of the thoracic spine to the right and mild degenerative change. XR/XR chest 1V IMPRESSION: Mild CHF.
[2020-08-06 09:45] LABS: Basophils Absolute Auto 0.1 X10*3/uL (0.0-0.2); Hemoglobin 13.5 g/dl (14.0-18.0); Imm Gran Abs Auto 0.01 X10*3/uL (0.00-0.03); Imm Gran Pct Auto 0.2 % (0.0-0.4); Monocytes Absolute Auto 0.6 X10*3/uL (0.1-1.2); Red Cell Distribution Width 14.6 % (11.0-16.0)
[2020-08-06 09:47] LABS: Eosinophils Absolute Auto 0.1 X10*3/uL (0.0-0.4); Eosinophils Percent Auto 2.7 % (0-4); Hematocrit 40.7 % (42-52); Lymphocytes Absolute Auto 1.4 X10*3/uL (1.2-4.9); Lymphocytes Percent Auto 27.6 % (20-40); Mean Corpuscular HGB Conc 33.2 g/dl (31.0-36.0); Mean Corpuscular Hemoglobin 33.1 pg (27.0-33.0); Mean Corpuscular Volume 99.8 fL (80-98); Mean Platelet Volume 11.9 fL (9.4-12.4); Monocytes Percent Auto 10.7 % (2-11); Neutrophils Percent Auto 57.8 % (45-73); Platelet Count 123 X10*3/uL (160-400); Red Blood Count 4.08 X10*6/uL (4.60-5.80); White Blood Count 5.1 X10*3/uL (4.8-10.8)
[2020-08-06 09:51] LABS: INTERNATIONAL NORM RATIO 1.1 (0.9-1.1); Prothrombin Time 13.6 SEC (10.8-13.0)
[2020-08-06 09:54] LABS: D Dimer 679 NG/ML; Partial Thromboplastin Time 31.7 SEC (24.1-38.0)
[2020-08-06 10:03] LABS: COVID-19 Test Negative (Negative); IDNOW Serial# 9DD0AD1C
[2020-08-06 10:17] LABS: Alanine Aminotransferase 23 U/L (0-40); Albumin Level 3.7 g/dL (3.5-5.0); Alkaline Phosphatase 74 U/L (39-117); Anion Gap 17 (12-20); Aspartate Amino Transferase 18 U/L (5-37); Bilirubin Total 1.7 mg/dL (0.0-1.0); Blood Urea Nitrogen 19 mg/dL (9-16); Calcium 8.5 mg/dL (8.4-10.2); Carbon Dioxide 24 mmol/L (22-29); Chloride 104 mmol/L (96-108); Creatinine Clr Calc Pharmacy 37.9; Estimated Glomerular Filt Rate 51; Glucose Random 200 mg/dL (60-115); Potassium 3.8 mmol/L (3.3-5.1); Sodium 141 mmol/L (135-145)
[2020-08-06 10:18] LABS: B Type Natriuretic Peptide 3132 pg/mL (<100)
[2020-08-06] MEDS: Furosemide 100 MG/10 ML VIAL 60 MG IVPUSH (11:30)
[2020-08-06 11:39] LABS: Glucose Urine UA 100 MG/DL (NEG); Leukocyte Esterase Urine NEG (NEG); Nitrite Urine NEG (NEG); Urine Blood TRACE (NEG); Urine Ketones NEG (NEG); Urine Protein NEG (NEG-TRACE)
[2020-08-06 11:41] LABS: Appearance Urine CLEAR; Color Urine YELLOW
--- NOTE | 2020-08-06 11:46 | PC.NURSE ---
requested daughter Sena be updated [phone]
[2020-08-06 11:47] LABS: RBC Urine 0-2 /HPF (0)
[2020-08-06 11:48] LABS: Bacteria Urine 2+ /LPF
--- NOTE | 2020-08-06 13:12 | P.HPHOSP_ITS ---
History of Present Illness Date of Service: 08/06/20 Chief Complaint: Shortness of breath 85 year old irish speaking man presenting with left sided chest pressure with shortness of breath. He walked to the bank and at some point fell to the ground. He denied LOC or injury. He reported that he get s chest pain/presure off and on do to his chronic cardiac disease. Nuclear medicine scan from 06/22, showed LVEF of 19% with dilated LV cavity with lasrge areas of infarcted myocardium. Due to continued chest pain he had cardiac catheterization last week that showed patent bypass grafts with diffuse distal coronary artery disease with significant elevated filling pressures. His Lasix was increased. Mildly elev ated troponin. He was given IV Lasix with ER appear to be admitted for further management treatment of acute on chronic congestive heart failure. Review of Systems Review of Systems: Denies any recent fever chills or decrease in appetite respiratory See HPI cardiovascular See HPI gastrointestinal denies any dysphagia abdominal pain nausea vomiting or diarrhea genitourinary denies any dysuria frequency or hematuria musculoskeletal denies any joint pain or swelling neuropsych denies any weakness or seizures all other systems reviewed are negative [facility] Medical History CAD (coronary artery disease) Chronic HFrEF (heart failure with reduced ejection fraction) COPD (chronic obstructive pulmonary disease) Diabetes mellitus History of myocardial infarction Hyperlipidemia Ischemic cardiomyopathy Mitral regurgitation Family History Father No problems noted. Mother No problems noted. Surgical History S/P CABG x 3 Social History Smoking Status: Former smoker Advance Directives: No Advance Directives Information Provided: No Meds Allergies Allergy/AdvReac Type Severity Reaction Status Date / Time No Known Allergies Allergy Unknown NOT Verified 07/17/20 09:15 APPLICABLE Home Medications Medication Instructions Recorded Confirmed Type aspirin 81 mg tablet,delayed 81 mg PO DAILY 06/02/20 08/06/20 History release atorvastatin 80 mg tablet 80 mg PO DAILY 06/02/20 08/06/20 History cholecalciferol (vitamin D3) 50 50 mcg PO DAILY 06/02/20 08/06/20 History mcg (2,000 unit) capsule famotidine 20 mg tablet 20 mg PO DAILY 06/02/20 08/06/20 History furosemide 80 mg tablet 80 mg PO DAILY tab 06/02/20 08/06/20 History glipizide 5 mg tablet 5 mg PO DAILY 06/02/20 08/06/20 History metoprolol succinate 50 mg 50 mg PO DAILY 06/02/20 08/06/20 History tablet,extended release 24 hr sacubitril 24 mg-valsartan 26 mg 1 tab PO BID 06/02/20 08/06/20 History tablet ipratropium-albuterol [Combivent 1 puff INHALATION QID 08/06/20 08/06/20 History Respimat] Physical Exam Vital Signs and Narrative: Vital Signs: Last Vital Signs Temp 98.1 F 08/06/20 09:00 Pulse 68 08/06/20 11:38 Resp 28 H 08/06/20 11:38 BP 103/60 08/06/20 11:38 Pulse Ox 94 08/06/20 11:38 Body Mass Index 28.3 Appearing in no acute distress head is normocephalic atraumatic eyes pupils are PERRLA sclera is anicteric mouth throat mucous membranes are intact and moist neck is supple no lymphadenopathy, no JVD noted lung sounds Diminished heart regular rate rhythm, clear S1, S2 positive bowel sounds, abdomen is soft, nontender neuro patient is alert x3, no focal deficits Results Labs CBC and Chem 7: 08/06/20 09:37 08/06/20 09:37 Labs: Laboratory Results - last 24 hr 08/06/20 08/06/20 08/06/20 09:37 09:37 09:37 MCV 99.8 H MCH 33.1 H MCHC 33.2 RDW 14.6 Plt Count 123 L MPV 11.9 Immature Gran % (Auto) 0.2 Neut % (Auto) 57.8 Lymph % (Auto) 27.6 Bonner % (Auto) 10.7 Eos % (Auto) 2.7 Baso % (Auto) 1.0 Lymph # (Auto) 1.4 Bonner # (Auto) 0.6 Eos # (Auto) 0.1 Baso # (Auto) 0.1 Abs Immat Gran (auto) 0.01 Absolute Neuts (auto) 3.0 Absolute Nucleated RBC 0.000 Nucleated RBC % (auto) 0.0 PT 13.6 H INR 1.1 APTT 31.7 D-Dimer 679 Anion Gap 17 Estim Creat Clear Calc 37.9 Estimated GFR 51 Random Glucose 200 H Calcium 8.5 D Total Bilirubin 1.7 H AST 18 ALT 23 Alkaline Phosphatase 74 Troponin I High Sens B-Natriuretic Peptide Total Protein 6.0 L Albumin 3.7 Urine Color Urine Appearance Urine pH Ur Specific [place] Urine Protein Urine Glucose (UA) Urine Ketones Urine Blood Urine Nitrite Ur Leukocyte Esterase Urine RBC Urine WBC Ur Squamous Epith Cells Urine Bacteria COVID-19 (PETE) COVID-19 Clin Com 08/06/20 08/06/20 08/06/20 09:37 09:37 09:37 MCV MCH MCHC RDW Plt Count MPV Immature Gran % (Auto) Neut % (Auto) Lymph % (Auto) Bonner % (Auto) Eos % (Auto) Baso % (Auto) Lymph # (Auto) Bonner # (Auto) Eos # (Auto) Baso # (Auto) Abs Immat Gran (auto) Absolute Neuts (auto) Absolute Nucleated RBC Nucleated RBC % (auto) PT INR APTT D-Dimer Anion Gap Estim Creat Clear Calc Estimated GFR Random Glucose Calcium Total Bilirubin AST ALT Alkaline Phosphatase Troponin I High Sens 48.0 H B-Natriuretic Peptide 3132 H Total Protein Albumin Urine Color Urine Appearance Urine pH Ur Specific [place] Urine Protein Urine Glucose (UA) Urine Ketones Urine Blood Urine Nitrite Ur Leukocyte Esterase Urine RBC Urine WBC Ur Squamous Epith Cells Urine Bacteria COVID-19 (PETE) Negative COVID-19 Clin Com See Note 08/06/20 11:30 MCV MCH MCHC RDW Plt Count MPV Immature Gran % (Auto) Neut % (Auto) Lymph % (Auto) Bonner % (Auto) Eos % (Auto) Baso % (Auto) Lymph # (Auto) Bonner # (Auto) Eos # (Auto) Baso # (Auto) Abs Immat Gran (auto) Absolute Neuts (auto) Absolute Nucleated RBC Nucleated RBC % (auto) PT INR APTT D-Dimer Anion Gap Estim Creat Clear Calc Estimated GFR Random Glucose Calcium Total Bilirubin AST ALT Alkaline Phosphatase Troponin I High Sens B-Natriuretic Peptide Total Protein Albumin Urine Color YELLOW Urine Appearance CLEAR Urine pH 6.0 Ur Specific Dell 1.020 Urine Protein NEG Urine Glucose (UA) 100 H Urine Ketones NEG Urine Blood TRACE Urine Nitrite NEG Ur Leukocyte Esterase NEG Urine RBC 0-2 Urine WBC 5-9 H Ur Squamous Epith Cells NONE Urine Bacteria 2+ COVID-19 (PETE) COVID-19 Clin Com Imaging Radiologist's Impressions: Impressions Chest X-Ray 08/06/20 09:08 IMPRESSION: Mild CHF. Assessment and Plan (1) Acute HFrEF (heart failure with reduced ejection fraction): Status: Acute 85 year old man admitted with acute on chronic heart failure. Nuclear medicine scan in 06/22 showed LVEF 15% HFrEF. IV lasix, cardiology consult, follow intake and output. As per Cardiology will add Aldactone, increase Lasix to 80 mg b.i.d., increased isosorbide to 60 mg. will hold off on Ranexa as patient has soft blood pressures at this time. Coronary artery disease /Ischemic cardiomyopathy. Entresto, aspirin, statin, beta-carmelo. COPD. No exacerbation. Albuterol as needed. Diabetes mellitus. Sliding scale, ADA diet. Continue Glipizide. DVT prophylaxis with Lovenox. Case discussed with Dr. Castillo Full code
--- NOTE | 2020-08-06 13:37 | PC.NURSE ---
PT EATING LUNCH AT THIS TIME. CONTINUES TO DENY CHEST PAIN, DESCRIBED TIGHTNESS. DENIES SOB, DIZZINESS.
--- NOTE | 2020-08-06 14:18 | PM.CNCAR ---
History of Present Illness History of Present Illness Date of Service: 08/06/20 Requesting physician: Rin Mario Consult reason: congestive heart failure and known to you Chief complaint: CHF Narrative: Thank you for asking us to see anginal in cardiology consultation today. Nando is well known to me with prior history of severe ischemic cardiomyopathy heart failure with reduced ejection fraction, coronary artery disease with prior coronary artery bypass grafting, COPD, secondary mitral regurgitation. Patient present in the hospital with sudden onset significant chest pressure, shortness of breath and falling down walking a short distance. With the last few months he has been having progressive symptoms of exertional shortness of breath and chest pressure, sometimes is vague probably because of language barrier. He was initially evaluated by Pulmonary and also underwent a myocardial perfusion imaging which was not significantly abnormal. However he presented to the office couple weeks ago with progressive symptoms of chest pressure and shortness of breath and was advised cardiac catheterization which he underwent last week. This showed patent bypass grafts with diffuse distal coronary artery disease with significant elevated filling pressures. His Lasix was increased. He comes today with above-mentioned symptoms. He also says he has been having increasing symptoms of fatigue. No syncope, palpitations. His BNP is further elevated compared to 2 weeks ago. His troponins are flat. EKG shows left bundle-branch block which is old Review of Systems Constitutional: Constitutional: Denies chills, Reports fatigue, Denies fever(s) and Reports lethargy Cardiovascular: Cardiovascular: Reports Abdominal Distension, Reports chest pain with activity, Reports leg edema, Denies lightheadedness, Denies Loss of Consciousness, Denies radiating jaw, neck or arm pain, Denies palpitations and Reports dyspnea on exertion Respiratory: Respiratory: Denies change in phlegm color, Denies hemoptysis, Reports dyspnea on exertion and Denies wheezing Gastrointestinal: Gastrointestinal: Reports no additional gastrointestinal complaints Genitourinary: Genitourinary: Reports no additional male genitourinary complaints Musculoskeletal: Musculoskeletal: Reports no additional musculoskeletal complaints Integumentary/Breasts: Skin/Breast: Reports system reviewed and no additional complaints, except as docu Neurologic: Reports system reviewed and no additional complaints, except as documented Psychiatric: Psychiatric: Reports anxiety Endocrine: Endocrine: Reports no additional endocrine complaints, Reports fatigue and Denies palpitations Hematologic/Lymphatic: Hematologic/Lymphatic: Reports no additional hematologic/lymphatic complaints Allergic/Immunologic: Allergic/Immunologic: Denies wheezing PMFSH Past Medical History Medical History CAD (coronary artery disease) Chronic HFrEF (heart failure with reduced ejection fraction) COPD (chronic obstructive pulmonary disease) Diabetes mellitus History of myocardial infarction Hyperlipidemia Ischemic cardiomyopathy Mitral regurgitation Family History Family History Father No problems noted. Mother No problems noted. Surgical History Surgical History S/P CABG x 3 Social History Social History Smoking Status: Former smoker Advance Directives: No Advance Directives Information Provided: No Meds Allergies Allergy/AdvReac Type Severity Reaction Status Date / Time No Known Allergies Allergy Unknown NOT Verified 07/17/20 09:15 APPLICABLE Home Medications Medication Instructions Recorded Confirmed Type aspirin 81 mg tablet,delayed 81 mg PO DAILY 06/02/20 08/06/20 History release atorvastatin 80 mg tablet 80 mg PO DAILY 06/02/20 08/06/20 History cholecalciferol (vitamin D3) 50 50 mcg PO DAILY 06/02/20 08/06/20 History mcg (2,000 unit) capsule famotidine 20 mg tablet 20 mg PO DAILY 06/02/20 08/06/20 History furosemide 80 mg tablet 80 mg PO DAILY tab 06/02/20 08/06/20 History glipizide 5 mg tablet 5 mg PO DAILY 06/02/20 08/06/20 History metoprolol succinate 50 mg 50 mg PO DAILY 06/02/20 08/06/20 History tablet,extended release 24 hr sacubitril 24 mg-valsartan 26 mg 1 tab PO BID 06/02/20 08/06/20 History tablet ipratropium-albuterol [Combivent 1 puff INHALATION QID 08/06/20 08/06/20 History Respimat] Physical Exam Vital Signs: Vital Signs: Last Vital Signs Temp 98.1 F 08/06/20 09:00 Pulse 68 08/06/20 11:38 Resp 28 H 08/06/20 11:38 BP 103/60 08/06/20 11:38 Pulse Ox 94 08/06/20 11:38 Body Mass Index 28.3 Const: General: cooperative, comfortable, alert, awake, acute distress mild and respiratory and anxious Nutritional Appearance: average body habitus Orientation/consciousness: patient oriented x3 HENMT: Head: Yes normocephalic and Yes atraumatic Neck: Neck: Yes trachea midline, Yes supple and Yes JVD Resp: Effort & Inspection: normal respiratory effort Auscultation: clear to auscultation bilaterally, crackles, no rales and diminished lung sounds Cardio: Jugular venous distension: JVD Palpation: abnormal PMI displaced PMI Rate: regular rate Rhythm: regular rhythm Heart sounds: S1 normal heart sound present and S2 normal heart sound present GI: Auscultation: normal bowel sounds Skin: General skin exam: no rashes or lesions noted Neuro: General: patient oriented x3 Extrem: General: Yes no clubbing, cyanosis or edema Psych: Appearance: grossly normal Affect: Anxious affect present Results Labs and Meds Result diagrams: 08/06/20 09:37 08/06/20 09:37 Lab results: Laboratory Results - last 24 hr 08/06/20 08/06/20 08/06/20 09:37 09:37 09:37 WBC 5.1 RBC 4.08 L Hgb 13.5 L Hct 40.7 L MCV 99.8 H MCH 33.1 H MCHC 33.2 RDW 14.6 Plt Count 123 L MPV 11.9 Immature Gran % (Auto) 0.2 Neut % (Auto) 57.8 Lymph % (Auto) 27.6 Ponce % (Auto) 10.7 Eos % (Auto) 2.7 Baso % (Auto) 1.0 Lymph # (Auto) 1.4 Ponce # (Auto) 0.6 Eos # (Auto) 0.1 Baso # (Auto) 0.1 Abs Immat Gran (auto) 0.01 Absolute Neuts (auto) 3.0 Absolute Nucleated RBC 0.000 Nucleated RBC % (auto) 0.0 PT 13.6 H INR 1.1 APTT 31.7 D-Dimer 679 Sodium 141 Potassium 3.8 Chloride 104 Carbon Dioxide 24 Anion Gap 17 BUN 19 H Creatinine 1.34 Estim Creat Clear Calc 37.9 Estimated GFR 51 Random Glucose 200 H Calcium 8.5 D Total Bilirubin 1.7 H AST 18 ALT 23 Alkaline Phosphatase 74 Troponin I High Sens B-Natriuretic Peptide Total Protein 6.0 L Albumin 3.7 Urine Color Urine Appearance Urine pH Ur Specific [place] Urine Protein Urine Glucose (UA) Urine Ketones Urine Blood Urine Nitrite Ur Leukocyte Esterase Urine RBC Urine WBC Ur Squamous Epith Cells Urine Bacteria COVID-19 (PETE) COVID-19 [employer] Com 08/06/20 08/06/20 08/06/20 09:37 09:37 09:37 WBC RBC Hgb Hct MCV MCH MCHC RDW Plt Count MPV Immature Gran % (Auto) Neut % (Auto) Lymph % (Auto) [place]once % (Auto) Eos % (Auto) Baso % (Auto) Lymph # (Auto) Ponce # (Auto) Eos # (Auto) Baso # (Auto) Abs Immat Gran (auto) Absolute Neuts (auto) Absolute Nucleated RBC Nucleated RBC % (auto) PT INR APTT D-Dimer Sodium Potassium Chloride Carbon Dioxide Anion Gap BUN Creatinine Estim Creat Clear Calc Estimated GFR Random Glucose Calcium Total Bilirubin AST ALT Alkaline Phosphatase Troponin I High Sens 48.0 H B-Natriuretic Peptide 3132 H Total Protein Albumin Urine Color Urine Appearance Urine pH Ur Specific [place] Urine Protein Urine Glucose (UA) Urine Ketones Urine Blood Urine Nitrite Ur Leukocyte Esterase Urine RBC Urine WBC Ur Squamous Epith Cells Urine Bacteria COVID-19 (PETE) Negative COVID-19 [employer] Com See Note 08/06/20 08/06/20 11:30 12:55 WBC RBC Hgb Hct MCV MCH MCHC RDW Plt Count MPV Immature Gran % (Auto) Neut % (Auto) Lymph % (Auto) [place]once % (Auto) Eos % (Auto) Baso % (Auto) Lymph # (Auto) [place] # (Auto) Eos # (Auto) Baso # (Auto) Abs Immat Gran (auto) Absolute Neuts (auto) Absolute Nucleated RBC Nucleated RBC % (auto) PT INR APTT D-Dimer Sodium Potassium Chloride Carbon Dioxide Anion Gap BUN Creatinine Estim Creat Clear Calc Estimated GFR Random Glucose Calcium Total Bilirubin AST ALT Alkaline Phosphatase Troponin I High Sens 49.0 H B-Natriuretic Peptide Total Protein Albumin Urine Color YELLOW Urine Appearance CLEAR Urine pH 6.0 Ur Specific [place] 1.020 Urine Protein NEG Urine Glucose (UA) 100 H Urine Ketones NEG Urine Blood TRACE Urine Nitrite NEG Ur Leukocyte Esterase NEG Urine RBC 0-2 Urine WBC 5-9 H Ur Squamous Epith Cells NONE Urine Bacteria 2+ COVID-19 (PETE) COVID-19 [employer] Com EKG shows normal sinus rhythm with left bundle-branch block Imaging Radiologist's impression: Impressions Chest X-Ray 08/06/20 09:08 IMPRESSION: Mild CHF. Assessment and Plan (1) Acute HFrEF (heart failure with reduced ejection fraction): Status: Acute Patient presents with sudden onset symptoms at rest with progressive symptoms in the past with elevated filling pressure recent cardiac catheterization with elevated BNP. Clinically does not appear significantly fluid overloaded, however chest x-ray findings consistent with CHF. IV diuresis with Lasix 80 mg b.i.d.. Strict intake and output chart. Continue Entresto and metoprolol therapy. Add Aldactone 12.5 mg to his regimen. Trend BMP and BNP. Will follow with you. (2) Angina of effort: Status: Acute Symptoms also consistent with angina of effort and probably ischemic heart failure. Recent cardiac catheterization shows patent bypass grafts with diffuse distal coronary disease beyond the graft attachment. This is unlikely to be improved with any interventional or surgical therapy. This needs to be treated medically. Prognosis is guarded. Continue to up titrate antianginal therapy. Isosorbide can be increased to 60 mg daily Ranexa to 1000 mg b.i.d. if blood pressure allows. Continue metoprolol therapy. Minimal troponin leak consistent with heart failure and not suggestive of acute coronary syndrome. No need for IV heparin at this time (3) Ischemic cardiomyopathy: Problem details: echocardiogram April 2020, LVEF of 10-15% with large aneurysmal segment Status: Acute Severe ischemic cardiomyopathy underlying left bundle-branch block. In the past he has refused device based therapy. However given progressive symptoms he may be more amenable to for considering device based therapy. If he does not want defibrillator may benefit with cardiac resynchronization therapy with a pacemaker to improve his heart failure syndrome. Will discuss this more as an outpatient. Continue to aggressively uptitrate neurohormonal modulation. Add Aldactone as above. Continue metoprolol and Entresto therapy. (4) CAD (coronary artery disease): Status: Acute Continue aspirin. Continue statin therapy. Blood pressure is optimized. Continue antianginal therapy as above. Will follow the patient. Thank you for allowing us to partake in his care
[2020-08-06] MEDS: Albuterol/Iprat 2.5/0.5MG 3 ML AMPUL.NEB INHALE ×2 (14:48→20:24)
--- NOTE | 2020-08-06 16:52 | PM.EVENT ---
Event Note Date of Service: 08/06/20 Event Note: addendum to history and physical by [employer]SOLES CHANNEL OPENER Rin Mario I interviewed and examined the patient. I discussed their presentation and management with the mid-level provider. I reviewed the history and physical and agree with the documentation, with the following additions and corrections: 85yo M with severe ischemic cardiomyopathy, CAD s/p CABG, mitral regurgitation followed by Dr Rushing [place] [facility] Presenting to ED with onset of L-sided chest pressure and dyspnea associated with walking to the bank. Recent cardiac workup includes nuclear MPS from 06/22 showing LVEV 19% and large areas of infarcter myocardium. [place] [facility] [place] that showed patent bypass grafts and diffuse distal CAD. Vitals afebrile, P 64, R 20, BP 97/30, SaO2 94 on RA Exam NAD, lungs slightly diminished throughout, RRR 2/6 murmur at apex, no obvious JVD, ext no edema Labs notable for BNP 3132 [was 2547 on 07/22/20], hs Tn-I 48->49, SCr 1.34 CXR shows interstitial prominence suggestive of mild CHF EKG with LBBB # HFrEF acute on chronic - admit to [facility], telemetry, Cardiology consult, monitor I+O/BNP/BMP/Mg # ischemic cardiomyopathy - continue Entresto, metoprolol, Imdur. add spironolactone per Cardiology. has refused AICD in past. t/c BiV pacer? # CAD - continue ASA, statin, metoprolol succinate, Imdur, ranolazine [t/c increasing the doses of the last 2 agents if BP room allows] # MR - thought sceondary to ischemic cardiomyopathy. to consider MitraClip? # COPD - continue nebs # DM2 - correction-dose lispro
[2020-08-06 18:38] LABS: Glucose, Whole Blood 328 mg/dL (60-115)
[2020-08-06] MEDS: Enoxaparin Sodium 40 MG/0.4 ML SYRINGE SUBCUT (18:40)
[2020-08-06] MEDS: 0.9 % Sodium Chloride Flush 3 ML SYRINGE IVFLUSH (18:40)
--- NOTE | 2020-08-06 20:03 | MHC.CM.PN ---
CM met with pt via training assistant, Albanian speaking only. IMM reviewed, signed and placed with pt and in chart per protocol. Pt lives alone and was independent until about 1 month ago. Pt states he had a visiting nurse in the past, but none now. Denies any services or medical equipment. States his daughter, Sena Covington, takes care of everything. Pt believes he signed a HCP, but none is on file. Spoke with daughter, Sena ([phone]) who tells CM that for the past month she has been caring for pt daily with meal preparation, medication management, rides to MD visits and any other care her father needs. Tells CM pt had some services through [facility], but when he is feeling well, he doesn't think he needs them. Daughter having surgery next month and feels pt needs more help in the home. Daughter is willing to be her father's HCP and father agreeable, but requests not to sign anything else at this time. Signed IMM and that was taxing for him. CM to contact otoniel Meier at [facility] ([phone]) in the am for services available for pt. CM to follow for d/c needs
[2020-08-06 20:26] LABS: Glucose, Whole Blood 392 mg/dL (60-115)
[2020-08-06] MEDS: Insulin Lispro 100 UNIT/ML 3 ML VIAL SUBCUT (20:35)
[2020-08-06] MEDS: Sacubitril/Valsartan 24/26 1 TAB TABLET PO (20:36)
[2020-08-07] VITALS (14 sets, daily range): BP systolic 95–119; BP diastolic 51–72; PULSE 70–85; RESP 16–22; TEMP 36.4–37.2; O2SAT 93–98
[2020-08-07] MEDS: 0.9 % Sodium Chloride Flush 3 ML SYRINGE IVFLUSH ×3 (01:19→16:40)
--- NOTE | 2020-08-07 06:45 | PC.NURSE ---
DERICK GOMEZ AWARE OF PATIENT URINE IS BRIGHT RED .
[2020-08-07 06:47] LABS: Basophils Percent Auto 0.8 % (0-2); Eosinophils Absolute Auto 0.1 X10*3/uL (0.0-0.4); Eosinophils Percent Auto 2.6 % (0-4); Hematocrit 40.8 % (42-52); Hemoglobin 13.6 g/dl (14.0-18.0); Imm Gran Abs Auto 0.01 X10*3/uL (0.00-0.03); Imm Gran Pct Auto 0.2 % (0.0-0.4); Lymphocytes Absolute Auto 1.4 X10*3/uL (1.2-4.9); MANUAL DIFF FLAG NO; Mean Corpuscular HGB Conc 33.3 g/dl (31.0-36.0); Mean Corpuscular Hemoglobin 32.7 pg (27.0-33.0); Mean Corpuscular Volume 98.1 fL (80-98); Mean Platelet Volume 11.9 fL (9.4-12.4); Monocytes Absolute Auto 0.5 X10*3/uL (0.1-1.2); Monocytes Percent Auto 9.8 % (2-11); Neutrophils Absolute Auto 3.2 X10*3/uL (2.0-8.3); Neutrophils Percent Auto 59.6 % (45-73); Platelet Count 139 X10*3/uL (160-400); Red Blood Count 4.16 X10*6/uL (4.60-5.80); Red Cell Distribution Width 14.4 % (11.0-16.0); White Blood Count 5.3 X10*3/uL (4.8-10.8)
[2020-08-07 07:11] LABS: Anion Gap 14 (12-20); Blood Urea Nitrogen 20 mg/dL (9-16); Calcium 8.8 mg/dL (8.4-10.2); Carbon Dioxide 29 mmol/L (22-29); Chloride 102 mmol/L (96-108); Creatinine Clr Calc Pharmacy 41.7; Estimated Glomerular Filt Rate 57; Glucose Random 183 mg/dL (60-115); Potassium 3.1 mmol/L (3.3-5.1); Sodium 142 mmol/L (135-145)
[2020-08-07] MEDS: Albuterol/Iprat 2.5/0.5MG 3 ML AMPUL.NEB INHALE ×4 (07:53→19:01)
[2020-08-07] MEDS: Cholecalciferol (Vitamin D3) 25 MCG TABLET 50 MCG PO (09:05)
[2020-08-07] MEDS: glipiZIDE 5 MG TABLET PO (09:05)
[2020-08-07] MEDS: Sacubitril/Valsartan 24/26 1 TAB TABLET PO (09:05)
[2020-08-07] MEDS: Spironolactone 25 MG TABLET 12.5 MG PO (09:06)
[2020-08-07] MEDS: Famotidine 20 MG TABLET PO (09:06)
[2020-08-07] MEDS: Atorvastatin Calcium 80 MG TABLET PO (09:06)
[2020-08-07] MEDS: Aspirin Enteric Coated 81 MG TABLET.DR PO (09:07)
[2020-08-07] MEDS: Isosorbide Mononitrate 60 MG TAB.ER.24H PO (09:07)
[2020-08-07] MEDS: Furosemide 40 MG/4 ML VIAL 80 MG IVPUSH (09:07)
[2020-08-07] MEDS: Metoprolol Succinate ER 50 MG TAB.ER.24H PO (09:07)
[2020-08-07 09:28] LABS: Glucose, Whole Blood 294 mg/dL (60-115)
--- NOTE | 2020-08-07 11:35 | MHC.CM.PN ---
CM CALLED [facility] LIASIRI MCMULLEN AT [phone], PT CURRENTLY DOES NOT HAVE HOME SERVICES, LIASIRI REPORTED PT'S DAUGHTER HAS ALREADY REQUESTED [facility] THROUGH [facility], PER RYAN IF PT ONLY NEEDS PT PLEASE CALL HER BACK AND THEY MAY HAVE IT, HOWEVER IF PT NEEDS GROUP HOME TO GO THROUGH A VNA SUCH [facility] WHO TAKES [facility] INSURANCE.
--- NOTE | 2020-08-07 11:45 | PC.NURSE ---
patient a&o, deicer repairer nsr 70s with pvcs, vitals stable, pt has no c/o pain or discomfort at this time, will continue to monitor.
[2020-08-07 11:59] LABS: Glucose, Whole Blood 231 mg/dL (60-115)
--- NOTE | 2020-08-07 12:05 | PC.NURSE ---
pharmacy called for missing med
--- NOTE | 2020-08-07 13:36 | PC.NURSE ---
called floor to give report, was told RN would call back to get report from this nurse.
--- NOTE | 2020-08-07 13:39 | PC.NURSE ---
patient refused lunch, insulin held- Dr. mccann aware/ok'd.
--- NOTE | 2020-08-07 15:30 | P.PNCA_ITS ---
Subjective Subjective Date of Service: 08/07/20 Interval history: He states that he feels less short of breath. Overall improved. Review of Systems Review of Systems Yes all other systems are reviewed and are negative Cardiovascular: Reports as per HPI, Reports no additional cardiovascular complaints, Denies acrocyanosis, Denies cool extremities, Denies painful fingertips, Denies chest pain, Denies chest pain at rest, Denies diaphoresis, Denies syncope, Denies irregular heart rhythm, Denies claudication, Denies leg edema, Denies lightheadedness, Denies palpitations and Denies dyspnea Respiratory: Denies dyspnea Denies syncope Endocrine: Denies palpitations Physical Exam Vital Signs: Last Vital Signs Temp 97.8 F 08/07/20 15:27 Pulse 80 08/07/20 15:27 Resp 19 08/07/20 15:27 BP 108/53 L 08/07/20 15:27 Pulse Ox 98 08/07/20 15:27 Body Mass Index 28.3 Const General: cooperative, comfortable and no acute distress Orientation/consciousness: patient oriented x3 HENMT Other: Unremarkable Neck Neck: Yes normal visual inspection Chest Chest palpation & inspection: normal inspection of the chest Resp Auscultation: clear to auscultation bilaterally, crackles and no wheezes Cardio Jugular venous distension: no JVD Palpation: normal PMI Heart sounds: S1 normal heart sound present, S2 normal heart sound present, no gallops, no murmurs and no rubs GI Palpation (GI): Soft to palpation Back/Spine/Pelvis Other: unremarkable Skin General skin exam: no rashes or lesions noted Neuro General: patient oriented x3 Extrem General: Yes no clubbing, cyanosis or edema Psych Mental Status: mental status grossly normal Results Labs and Meds Result diagrams: 08/07/20 06:18 08/07/20 06:18 Lab results: Laboratory Results - last 24 hr 08/06/20 08/06/20 08/07/20 18:29 20:23 06:18 WBC 5.3 RBC 4.16 L Hgb 13.6 L Hct 40.8 L MCV 98.1 H MCH 32.7 MCHC 33.3 RDW 14.4 Plt Count 139 L MPV 11.9 Immature Gran % (Auto) 0.2 Neut % (Auto) 59.6 Lymph % (Auto) 27.0 [place] % (Auto) 9.8 Eos % (Auto) 2.6 Baso % (Auto) 0.8 Lymph # (Auto) 1.4 [place] # (Auto) 0.5 Eos # (Auto) 0.1 Baso # (Auto) 0.0 Abs Immat Gran (auto) 0.01 Absolute Neuts (auto) 3.2 Absolute Nucleated RBC 0.000 Nucleated RBC % (auto) 0.0 Sodium Potassium Chloride Carbon Dioxide Anion Gap BUN Creatinine Estim Creat Clear Calc Estimated GFR POC Glucose 328 H 392 H* Random Glucose Calcium 08/07/20 08/07/20 08/07/20 06:18 09:04 11:52 WBC RBC Hgb Hct MCV MCH MCHC RDW Plt Count MPV Immature Gran % (Auto) Neut % (Auto) Lymph % (Auto) [place] % (Auto) Eos % (Auto) Baso % (Auto) Lymph # (Auto) [place] # (Auto) Eos # (Auto) Baso # (Auto) Abs Immat Gran (auto) Absolute Neuts (auto) Absolute Nucleated RBC Nucleated RBC % (auto) Sodium 142 Potassium 3.1 L Chloride 102 Carbon Dioxide 29 Anion Gap 14 BUN 20 H Creatinine 1.22 Estim Creat Clear Calc 41.7 Estimated GFR 57 POC Glucose 294 H 231 H Random Glucose 183 H Calcium 8.8 Progress Note: A&P Assessment and plan (1) Ischemic cardiomyopathy: Status: Acute (2) Atherosclerotic cardiovascular disease: Status: Acute (3) Acute on chronic systolic (congestive) heart failure: Status: Acute (4) Nonrheumatic mitral valve regurgitation: Status: Acute (5) LBBB (left bundle branch block): Status: Acute (6) S/P CABG x 3: Status: Inactive Assessment and Plan: Cardiac studies reviewed. From May 2020 with LVEF 50-20% and wall motion abnormalities from CAD; advanced diastolic dysfunction and moderate to severe mitral regurgitation and mild pulmonary hypertension. Cardiac catheterization with patent grafts, but diffuse disease in the LAD and OM. OM has 95% stenosis after the touchdown. Overall recommended medical management. He seems to be improving. He is so far -2 L negative since hospitalization. Continue IV Lasix another day and then will change to oral diuretics. Continue beta-blockers and Entresto. Fall Risk Details Current Medications: Current Medications Generic Name Dose Route Start Last Admin Trade Name Freq PRN Reason Stop Dose Admin Acetaminophen 650 mg 08/06/20 13:10 Acetaminophen 325 Mg Tablet PO Q6H PRN Pain, Mild (Pain Scale 1-3) Albuterol/Ipratropium 3 ml 08/06/20 16:00 08/07/20 11:29 Albuterol/Iprat 2.5/0.5mg 3 Ml Ampul.Neb INHALE 3 ml RQID [facility] Administration Aspirin 81 mg 08/07/20 09:00 08/07/20 09:07 Aspirin Enteric Coated 81 Mg Tablet.Dr PO 81 mg DAILY [facility] Administration Atorvastatin Calcium 80 mg 08/07/20 09:00 08/07/20 09:06 Atorvastatin Calcium 80 Mg Tablet PO 80 mg DAILY [facility] Administration Enoxaparin Sodium 40 mg 08/06/20 17:00 08/06/20 18:40 Enoxaparin Sodium 40 Mg/0.4 Ml Syringe SUBCUT 40 mg Q24H [facility] Administration Famotidine 20 mg 08/07/20 09:00 08/07/20 09:06 Famotidine 20 Mg Tablet PO 20 mg DAILY [facility] Administration Furosemide 80 mg 08/06/20 18:00 08/07/20 09:07 Furosemide 40 Mg/4 Ml Vial IVPUSH 80 mg BID@0900,1800 [facility] Administration Protocol Glipizide 5 mg 08/07/20 09:00 08/07/20 09:05 Glipizide 5 Mg Tablet PO 5 mg DAILY [facility] Administration Insulin Human Lispro 0 unit 08/06/20 21:00 08/07/20 13:39 Insulin Lispro 100 Unit/Ml 3 Ml Vial SUBCUT Not Given QIDACHS [facility] Protocol Isosorbide Mononitrate 60 mg 08/07/20 09:00 08/07/20 09:07 Isosorbide Mononitrate 60 Mg Tab.Er.24h PO 60 mg DAILY [facility] Administration Protocol Metoprolol Succinate 50 mg 08/07/20 09:00 08/07/20 09:07 Metoprolol Succinate Er 50 Mg Tab.Er.24h PO 50 mg DAILY [facility] Administration Protocol Non-Formulary Medication 2 puff 08/07/20 09:00 Tiotropium-Olodaterol [Stiolto Respimat] INHALE DAILY [facility] Ondansetron HCl 4 mg 08/06/20 13:10 Ondansetron Hcl 4 Mg/2 Ml Vial IVPUSH Q8H PRN Nausea and Vomiting Pharmacy Consult 1 each 08/06/20 10:37 Consult Rx Perform Med Rec MISCELLANE ONCE PRN Consult order Ranolazine 500 mg 08/06/20 21:00 08/07/20 13:33 Ranolazine 500 Mg Tab.Er.12h PO Not Given BID [facility] Sacubitril/Valsartan 1 tab 08/06/20 21:00 08/07/20 09:05 Sacubitril/Valsartan 24 1 Tab Tablet PO 1 tab BID [facility] Administration Protocol Sodium Chloride 3 ml 08/06/20 16:00 08/07/20 09:08 0.9 % Sodium Chloride Flush 3 Ml Syringe IVFLUSH 3 ml QSHIFT [facility] Administration Spironolactone 12.5 mg 08/07/20 09:00 08/07/20 09:06 Spironolactone 25 Mg Tablet PO 12.5 mg DAILY [facility] Administration Protocol Vitamin D 50 mcg 08/07/20 09:00 08/07/20 09:05 Cholecalciferol (Vitamin D3) 25 Mcg Tablet PO 50 mcg DAILY [facility] Administration Time Spent With Patient Time: Total time spent is greater than 50% in coordination of care (as documented) at patient's floor/unit and/or counseling patient: Time with patient: less than 15 minutes
[2020-08-07 16:25] LABS: Glucose, Whole Blood 271 mg/dL (60-115)
[2020-08-07] MEDS: Insulin Lispro 100 UNIT/ML 3 ML VIAL SUBCUT ×2 (16:39→21:32)
[2020-08-07] MEDS: Enoxaparin Sodium 40 MG/0.4 ML SYRINGE SUBCUT (16:40)
--- NOTE | 2020-08-07 16:55 | HO.PM.IMPN ---
Subjective Subjective Date of Service: 08/07/20 Interval History: HFrEF acute on chronic Review of Systems Patient still has short of breath, denies any chest pain or abdominal pain or fever or chills or any new weakness or numbness or any urinary complaints. Physical Exam Vital Signs: Vital Signs: Last Vital Signs Temp 97.8 F 08/07/20 15:27 Pulse 74 08/07/20 15:36 Resp 19 08/07/20 15:27 BP 108/53 L 08/07/20 15:27 Pulse Ox 98 08/07/20 15:27 Body Mass Index 28.3 Physical exam: Constitutional: Not in acute distress Cvs: [id number], [id number] , no murmur res: Slightly diminished breath sounds ,no rales or wheezing abd: no rebound or guarding ,nt, bs present. ext pulses present , no cyanosis neuro: axo3 , nonfocal. Objective Data Current Medications Generic Name Dose Route Start Last Admin Trade Name Freq PRN Reason Stop Dose Admin Acetaminophen 650 mg 08/06/20 13:10 Acetaminophen 325 Mg Tablet PO Q6H PRN Pain, Mild (Pain Scale 1-3) Albuterol/Ipratropium 3 ml 08/06/20 16:00 08/07/20 15:35 Albuterol/Iprat 2.5/0.5mg 3 Ml Ampul.Neb INHALE 3 ml RQID [facility] Administration Aspirin 81 mg 08/07/20 09:00 08/07/20 09:07 Aspirin Enteric Coated 81 Mg Tablet. PO 81 mg DAILY [facility] Administration Atorvastatin Calcium 80 mg 08/07/20 09:00 08/07/20 09:06 Atorvastatin Calcium 80 Mg Tablet PO 80 mg DAILY [facility] Administration Enoxaparin Sodium 40 mg 08/06/20 17:00 08/07/20 16:40 Enoxaparin Sodium 40 Mg/0.4 Ml Syringe SUBCUT 40 mg Q24H [facility] Administration Famotidine 20 mg 08/07/20 09:00 08/07/20 09:06 Famotidine 20 Mg Tablet PO 20 mg DAILY [facility] Administration Furosemide 80 mg 08/06/20 18:00 08/07/20 09:07 Furosemide 40 Mg/4 Ml Vial IVPUSH 80 mg BID@0900,1800 [facility] Administration Protocol Glipizide 5 mg 08/07/20 09:00 08/07/20 09:05 Glipizide 5 Mg Tablet PO 5 mg DAILY [facility] Administration Insulin Human Lispro 0 unit 08/06/20 21:00 08/07/20 16:39 Insulin Lispro 100 Unit/Ml 3 Ml Vial SUBCUT 6 unit QIDACHS [facility] Administration Protocol Isosorbide Mononitrate 60 mg 08/07/20 09:00 08/07/20 09:07 Isosorbide Mononitrate 60 Mg Tab.Er.24h PO 60 mg DAILY [facility] Administration Protocol Metoprolol Succinate 50 mg 08/07/20 09:00 08/07/20 09:07 Metoprolol Succinate Er 50 Mg Tab.Er.24h PO 50 mg DAILY [facility] Administration Protocol Non-Formulary Medication 2 puff 08/07/20 09:00 Tiotropium-Olodaterol [Stiolto Respimat] INHALE DAILY [facility] Ondansetron HCl 4 mg 08/06/20 13:10 Ondansetron Hcl 4 Mg/2 Ml Vial IVPUSH Q8H PRN Nausea and Vomiting Pharmacy Consult 1 each 08/06/20 10:37 Consult Rx Perform Med Rec MISCELLANE ONCE PRN Consult order Ranolazine 500 mg 08/06/20 21:00 08/07/20 13:33 Ranolazine 500 Mg Tab.Er.12h PO Not Given BID [facility] Sacubitril/Valsartan 1 tab 08/06/20 21:00 08/07/20 09:05 Sacubitril/Valsartan 1 Tab Tablet PO 1 tab BID [facility] Administration Protocol Sodium Chloride 3 ml 08/06/20 16:00 08/07/20 16:40 0.9 % Sodium Chloride Flush 3 Ml Syringe IVFLUSH 3 ml QSHIFT [facility] Administration Spironolactone 12.5 mg 08/07/20 09:00 08/07/20 09:06 Spironolactone 25 Mg Tablet PO 12.5 mg DAILY [facility] Administration Protocol Vitamin D 50 mcg 08/07/20 09:00 08/07/20 09:05 Cholecalciferol (Vitamin D3) 25 Mcg Tablet PO 50 mcg DAILY [facility] Administration Labs CBC & Chem 7: 08/07/20 06:18 08/07/20 06:18 Microbiology Microbiology Results: Microbiology 08/06/20 11:30 Urine Catheterized - Straight Catheter Urine Culture - Preliminary Culture in progress. Assessment and Plan (1) Acute HFrEF (heart failure with reduced ejection fraction): Status: Acute Assessment and Plan: 1. HFrEF acute on chronic: Continue Entresto, metoprolol, med to, IV Lasix. Cardiology eval noted -- LVEF 50-20% and wall motion abnormalities from CAD; advanced diastolic dysfunction and moderate to severe mitral regurgitation and mild pulmonary hypertension. Cardiac catheterization with patent grafts, but diffuse disease in the LAD and OM. OM has 95% stenosis after the touchdown. Overall recommended medical management. He is so far -2 L negative since hospitalization. monitor I+O/BNP/BMP/Mg 2.ischemic cardiomyopathy- continue Entresto, metoprolol, Imdur. add spironolactone per Cardiology. has refused AICD in past. 3. CAD- continue ASA, statin, metoprolol succinate, Imdur, ranolazine [t/c increasing the doses of the last 2 agents if BP room allows] 4 COPD- continue nebs 5. DM2- correction-dose lispro 6. Hypokalemia: Probably related to above diuretic use we will replete potassium and add magnesium levels.
[2020-08-07 17:20] LABS: Alanine Aminotransferase 20 U/L (0-40); Albumin Level 3.6 g/dL (3.5-5.0); Alkaline Phosphatase 79 U/L (39-117); Aspartate Amino Transferase 15 U/L (5-37); Bilirubin Direct 0.6 mg/dL (0.0-0.5); Bilirubin Total 1.2 mg/dL (0.0-1.0); Magnesium 2.3 mg/dL (1.6-2.6)
[2020-08-07] MEDS: Potassium Chloride Packet 20 MEQ PACKET 40 MEQ PO (17:45)
--- NOTE | 2020-08-07 17:49 | PC.NURSE ---
Per 80 mg IV push lasix held d/t patient blood pressure
[2020-08-07 20:21] LABS: Glucose, Whole Blood 251 mg/dL (60-115)
[2020-08-07] MEDS: Ranolazine 500 MG TAB.ER.12H PO (21:32)
--- NOTE | 2020-08-07 21:41 | MHC.PIE ---
P: Patient bp 108/51 P 81. I: notified hospitalist on duty, Dr. Pollock. E: instructed to hold 2100 dose of entresto for tonight.
[2020-08-08] VITALS (13 sets, daily range): BP systolic 83–112; BP diastolic 45–95; PULSE 75–95; RESP 14–20; TEMP 36.2–37.1; O2SAT 92–98
[2020-08-08] MEDS: 0.9 % Sodium Chloride Flush 3 ML SYRINGE IVFLUSH ×4 (00:04→21:25)
[2020-08-08] MEDS: Albuterol/Iprat 2.5/0.5MG 3 ML AMPUL.NEB INHALE ×4 (07:34→19:44)
[2020-08-08 07:48] LABS: Glucose, Whole Blood 108 mg/dL (60-115)
[2020-08-08] MEDS: Cholecalciferol (Vitamin D3) 25 MCG TABLET 50 MCG PO (07:59)
[2020-08-08] MEDS: Famotidine 20 MG TABLET PO (07:59)
[2020-08-08] MEDS: Atorvastatin Calcium 80 MG TABLET PO (07:59)
[2020-08-08] MEDS: glipiZIDE 5 MG TABLET PO (08:00)
[2020-08-08] MEDS: Furosemide 40 MG/4 ML VIAL 80 MG IVPUSH (08:00)
[2020-08-08] MEDS: Aspirin Enteric Coated 81 MG TABLET.DR PO (08:00)
[2020-08-08] MEDS: Ranolazine 500 MG TAB.ER.12H PO ×2 (08:00→21:20)
[2020-08-08] MEDS: Spironolactone 25 MG TABLET 12.5 MG PO (08:04)
[2020-08-08 08:18] LABS: Glucose, Whole Blood 106 mg/dL (60-115)
[2020-08-08 09:36] LABS: Anion Gap 12 (12-20); Blood Urea Nitrogen 14 mg/dL (9-16); Calcium 8.8 mg/dL (8.4-10.2); Carbon Dioxide 30 mmol/L (22-29); Chloride 102 mmol/L (96-108); Creatinine Clr Calc Pharmacy 42.4; Estimated Glomerular Filt Rate 58; Glucose Random 139 mg/dL (60-115); Sodium 140 mmol/L (135-145)
--- NOTE | 2020-08-08 11:20 | MHC.CM.PN ---
Per Rounds discussion, Patient is not yet medically cleared for dc (BP on low side and C/O SOB). Home with services is the goal and CM will continue to follow for dc planning and possible need to adjust the dc plan.
[2020-08-08] MEDS: Insulin Lispro 100 UNIT/ML 3 ML VIAL SUBCUT ×2 (12:06→21:19)
[2020-08-08 12:16] LABS: Glucose, Whole Blood 194 mg/dL (60-115)
--- NOTE | 2020-08-08 14:20 | PM.PNCARD ---
Subjective Subjective Date of Service: 08/08/20 Interval history: He states that he is feeling much better. Shortness of breath is improved. No significant leg swelling. Review of Systems Review of Systems Yes all other systems are reviewed and are negative Cardiovascular: Reports as per HPI, Reports no additional cardiovascular complaints, Denies acrocyanosis, Denies cool extremities, Denies painful fingertips, Denies chest pain, Denies chest pain at rest, Denies diaphoresis, Denies syncope, Denies irregular heart rhythm, Denies claudication, Denies leg edema, Denies lightheadedness, Denies palpitations and Denies dyspnea Respiratory: Denies dyspnea Denies syncope Endocrine: Denies palpitations Physical Exam Vital Signs: Last Vital Signs Temp 97.2 F 08/08/20 11:29 Pulse 81 08/08/20 11:51 Resp 19 08/08/20 11:29 BP 99/53 L 08/08/20 11:29 Pulse Ox 95 08/08/20 11:29 Body Mass Index 28.3 Const General: cooperative, comfortable and no acute distress Orientation/consciousness: patient oriented x3 HENMT Other: Unremarkable Neck Neck: Yes normal visual inspection Chest Chest palpation & inspection: normal inspection of the chest Resp Auscultation: clear to auscultation bilaterally, crackles and no wheezes Cardio Jugular venous distension: no JVD Palpation: normal PMI Heart sounds: S1 normal heart sound present, S2 normal heart sound present, no gallops, no murmurs and no rubs GI Palpation (GI): Soft to palpation Back/Spine/Pelvis Other: unremarkable Skin General skin exam: no rashes or lesions noted Neuro General: patient oriented x3 Extrem General: Yes no clubbing, cyanosis or edema Psych Mental Status: mental status grossly normal Results Labs and Meds Result diagrams: 08/07/20 06:18 08/08/20 08:37 Lab results: Laboratory Results - last 24 hr 08/07/20 08/07/20 08/07/20 06:18 16:13 20:12 Sodium Potassium Chloride Carbon Dioxide Anion Gap BUN Creatinine Estim Creat Clear Calc Estimated GFR POC Glucose 271 H 251 H Random Glucose Calcium Magnesium 2.3 Total Bilirubin 1.2 H Direct Bilirubin 0.6 H AST 15 ALT 20 Alkaline Phosphatase 79 Total Protein 6.0 L Albumin 3.6 08/08/20 08/08/20 08/08/20 07:05 08:01 08:37 Sodium 140 Potassium 4.0 D Chloride 102 Carbon Dioxide 30 H Anion Gap 12 BUN 14 Creatinine 1.20 Estim Creat Clear Calc 42.4 Estimated GFR 58 POC Glucose 108 106 Random Glucose 139 H Calcium 8.8 Magnesium Total Bilirubin Direct Bilirubin AST ALT Alkaline Phosphatase Total Protein Albumin 08/08/20 11:30 Sodium Potassium Chloride Carbon Dioxide Anion Gap BUN Creatinine Estim Creat Clear Calc Estimated GFR POC Glucose 194 H Random Glucose Calcium Magnesium Total Bilirubin Direct Bilirubin AST ALT Alkaline Phosphatase Total Protein Albumin ECG Attestation: I personally reviewed and interpreted this ECG as follows: Interpretation: Tele with sinus, very short bursts of NSVT Progress Note: A&P Assessment and plan (1) Ischemic cardiomyopathy: Status: Acute (2) Atherosclerotic cardiovascular disease: Status: Acute (3) Acute on chronic systolic (congestive) heart failure: Status: Acute (4) Nonrheumatic mitral valve regurgitation: Status: Acute (5) LBBB (left bundle branch block): Status: Acute (6) S/P CABG x 3: Status: Inactive Assessment and Plan: Cardiac studies reviewed. Echocardiogram from May 2020 with LVEF 15-20% and wall motion abnormalities from CAD; advanced diastolic dysfunction and moderate to severe mitral regurgitation and mild pulmonary hypertension. Cardiac catheterization with patent grafts, but diffuse disease in the LAD and OM. OM has 95% stenosis after the touchdown. Overall recommended medical management. He seems to be improving. He is so far 2375ml negative since hospitalization. Change to oral diuretics. Continue beta-blockers and Entresto. Discharge planning. Fall Risk Details Current Medications: Current Medications Generic Name Dose Route Start Last Admin Trade Name Freq PRN Reason Stop Dose Admin Acetaminophen 650 mg 08/06/20 13:10 Acetaminophen 325 Mg Tablet PO Q6H PRN Pain, Mild (Pain Scale 1-3) Albuterol/Ipratropium 3 ml 08/06/20 16:00 08/08/20 11:50 Albuterol/Iprat 2.5/0.5mg 3 Ml Ampul.Neb INHALE 3 ml RQID [facility] Administration Aspirin 81 mg 08/07/20 09:00 08/08/20 08:00 Aspirin Enteric Coated 81 Mg Tablet. PO 81 mg DAILY [facility] Administration Atorvastatin Calcium 80 mg 08/07/20 09:00 08/08/20 07:59 Atorvastatin Calcium 80 Mg Tablet PO 80 mg DAILY [facility] Administration Enoxaparin Sodium 40 mg 08/06/20 17:00 08/07/20 16:40 Enoxaparin Sodium 40 Mg/0.4 Ml Syringe SUBCUT 40 mg Q24H [facility] Administration Famotidine 20 mg 08/07/20 09:00 08/08/20 07:59 Famotidine 20 Mg Tablet PO 20 mg DAILY [facility] Administration Glipizide 5 mg 08/07/20 09:00 08/08/20 08:00 Glipizide 5 Mg Tablet PO 5 mg DAILY [facility] Administration Insulin Human Lispro 0 unit 08/06/20 21:00 08/08/20 12:06 Insulin Lispro 100 Unit/Ml 3 Ml Vial SUBCUT 2 unit QIDACHS [facility] Administration Protocol Isosorbide Mononitrate 60 mg 08/07/20 09:00 08/08/20 08:12 Isosorbide Mononitrate 60 Mg Tab.Er.24h PO Not Given DAILY [facility] Protocol Metoprolol Succinate 50 mg 08/07/20 09:00 08/07/20 09:07 Metoprolol Succinate Er 50 Mg Tab.Er.24h PO 50 mg DAILY [facility] Administration Protocol Non-Formulary Medication 2 puff 08/07/20 09:00 Tiotropium-Olodaterol [Stiolto Respimat] INHALE DAILY [facility] Ondansetron HCl 4 mg 08/06/20 13:10 Ondansetron Hcl 4 Mg/2 Ml Vial IVPUSH Q8H PRN Nausea and Vomiting Pharmacy Consult 1 each 08/06/20 10:37 Consult Rx Perform Med Rec MISCELLANE ONCE PRN Consult order Ranolazine 500 mg 08/06/20 21:00 08/08/20 08:00 Ranolazine 500 Mg Tab.Er.12h PO 500 mg BID [facility] Administration Sacubitril/Valsartan 1 tab 08/06/20 21:00 08/08/20 08:04 Sacubitril/Valsartan 1 Tab Tablet PO Not Given BID [facility] Protocol Sodium Chloride 3 ml 08/06/20 16:00 08/08/20 08:03 0.9 % Sodium Chloride Flush 3 Ml Syringe IVFLUSH 3 ml QSHIFT [facility] Administration Spironolactone 12.5 mg 08/07/20 09:00 08/08/20 08:04 Spironolactone 25 Mg Tablet PO 12.5 mg DAILY [facility] Administration Protocol Vitamin D 50 mcg 08/07/20 09:00 08/08/20 07:59 Cholecalciferol (Vitamin D3) 25 Mcg Tablet PO 50 mcg DAILY [facility] Administration Time Spent With Patient Time: Total time spent is greater than 50% in coordination of care (as documented) at patient's floor/unit and/or counseling patient: Time with patient: less than 15 minutes
--- NOTE | 2020-08-08 16:08 | HO.PM.IMPN ---
Subjective Subjective Date of Service: 08/08/20 Interval History: chf Review of Systems Shortness of breath improving, Denies any chest pain or abdominal pain or fever or chills or nausea vomiting or abdominal pain Physical Exam Vital Signs: Vital Signs: Last Vital Signs Temp 98.4 F 08/08/20 15:32 Pulse 78 08/08/20 15:59 Resp 14 08/08/20 15:32 BP 91/49 L 08/08/20 15:32 Pulse Ox 94 08/08/20 15:32 Body Mass Index 28.3 Physical exam: Constitutional: Not in acute distress Cvs: [id number], [id number] , no murmur res: Slightly diminished breath sounds ,no rales or wheezing abd: no rebound or guarding ,nt, bs present. ext pulses present , no cyanosis neuro: axo3 , nonfocal. Objective Data Current Medications Generic Name Dose Route Start Last Admin Trade Name Freq PRN Reason Stop Dose Admin Acetaminophen 650 mg 08/06/20 13:10 Acetaminophen 325 Mg Tablet PO Q6H PRN Pain, Mild (Pain Scale 1-3) Albuterol/Ipratropium 3 ml 08/06/20 16:00 08/08/20 15:58 Albuterol/Iprat 2.5/0.5mg 3 Ml Ampul.Neb INHALE 3 ml RQID [facility] Administration Aspirin 81 mg 08/07/20 09:00 08/08/20 08:00 Aspirin Enteric Coated 81 Mg Tablet.Dr PO 81 mg DAILY [facility] Administration Atorvastatin Calcium 80 mg 08/07/20 09:00 08/08/20 07:59 Atorvastatin Calcium 80 Mg Tablet PO 80 mg DAILY [facility] Administration Enoxaparin Sodium 40 mg 08/06/20 17:00 08/07/20 16:40 Enoxaparin Sodium 40 Mg/0.4 Ml Syringe SUBCUT 40 mg Q24H [facility] Administration Famotidine 20 mg 08/07/20 09:00 08/08/20 07:59 Famotidine 20 Mg Tablet PO 20 mg DAILY [facility] Administration Glipizide 5 mg 08/07/20 09:00 08/08/20 08:00 Glipizide 5 Mg Tablet PO 5 mg DAILY [facility] Administration Insulin Human Lispro 0 unit 08/06/20 21:00 08/08/20 12:06 Insulin Lispro 100 Unit/Ml 3 Ml Vial SUBCUT 2 unit QIDACHS [facility] Administration Protocol Isosorbide Mononitrate 60 mg 08/07/20 09:00 08/08/20 08:12 Isosorbide Mononitrate 60 Mg Tab.Er.24h PO Not Given DAILY [facility] Protocol Metoprolol Succinate 50 mg 08/07/20 09:00 08/07/20 09:07 Metoprolol Succinate Er 50 Mg Tab.Er.24h PO 50 mg DAILY [facility] Administration Protocol Non-Formulary Medication 2 puff 08/07/20 09:00 Tiotropium-Olodaterol [Stiolto Respimat] INHALE DAILY [facility] Ondansetron HCl 4 mg 08/06/20 13:10 Ondansetron Hcl 4 Mg/2 Ml Vial IVPUSH Q8H PRN Nausea and Vomiting Pharmacy Consult 1 each 08/06/20 10:37 Consult Rx Perform Med Rec MISCELLANE ONCE PRN Consult order Ranolazine 500 mg 08/06/20 21:00 08/08/20 08:00 Ranolazine 500 Mg Tab.Er.12h PO 500 mg BID [facility] Administration Sacubitril/Valsartan 1 tab 08/06/20 21:00 08/08/20 08:04 Sacubitril/Valsartan 24/ 1 Tab Tablet PO Not Given BID [facility] Protocol Sodium Chloride 3 ml 08/06/20 16:00 08/08/20 08:03 0.9 % Sodium Chloride Flush 3 Ml Syringe IVFLUSH 3 ml QSHIFT [facility] Administration Spironolactone 12.5 mg 08/07/20 09:00 08/08/20 08:04 Spironolactone 25 Mg Tablet PO 12.5 mg DAILY [facility] Administration Protocol Vitamin D 50 mcg 08/07/20 09:00 08/08/20 07:59 Cholecalciferol (Vitamin D3) 25 Mcg Tablet PO 50 mcg DAILY [facility] Administration Labs CBC & Chem 7: 08/07/20 06:18 08/08/20 08:37 Microbiology Microbiology Results: Microbiology 08/06/20 11:30 Urine Catheterized - Straight Catheter Urine Culture - Final Assessment and Plan (1) Acute on chronic systolic (congestive) heart failure: Status: Acute (2) Acute HFrEF (heart failure with reduced ejection fraction): Status: Acute Assessment and Plan: 1. HFrEF acute on chronic: Given dose of Lasix IV this morning, after that Entresto and metoprolol on hold due to softer blood pressure. Cardiology eval noted -- LVEF 50-20% and wall motion abnormalities from CAD; advanced diastolic dysfunction and moderate to severe mitral regurgitation and mild pulmonary hypertension. Cardiac catheterization with patent grafts, but diffuse disease in the LAD and OM. OM has 95% stenosis after the touchdown. He is so far -2 L negative since hospitalization. monitor I+O/BNP/BMP/Mg 2.ischemic cardiomyopathy- hold Entresto, metoprolol, Imdur due to softer. add spironolactone per Cardiology. has refused AICD in past. 3. CAD- continue ASA, statin, metoprolol succinate, Imdur, ranolazine [t/c increasing the doses of the last 2 agents if BP room allows] 4 COPD- continue nebs 5. DM2- correction-dose lispro 6. Hypokalemia: Probably related to above diuretic use we will replete potassium and add magnesium levels.
[2020-08-08 16:45] LABS: Glucose, Whole Blood 97 mg/dL (60-115)
[2020-08-08] MEDS: Enoxaparin Sodium 40 MG/0.4 ML SYRINGE SUBCUT (18:36)
[2020-08-08 20:47] LABS: Glucose, Whole Blood 216 mg/dL (60-115)
[2020-08-08] MEDS: Sacubitril/Valsartan 24/26 1 TAB TABLET PO (21:19)
--- NOTE | 2020-08-08 23:53 | PC.NURSE ---
Pt BP noted to be running low, SBP 83. Repo pt supine, rechecked BP, was 96/58. Pt asymptomatic, alert and oriented. Will continue to monitor.
[2020-08-09] VITALS (7 sets, daily range): BP systolic 92–100; BP diastolic 60–62; PULSE 73–80; RESP 19–20; TEMP 36.2–36.8; O2SAT 93–96
[2020-08-09 07:19] LABS: Anion Gap 13 (12-20); Blood Urea Nitrogen 22 mg/dL (9-16); Calcium 8.9 mg/dL (8.4-10.2); Carbon Dioxide 28 mmol/L (22-29); Chloride 100 mmol/L (96-108); Creatinine Clr Calc Pharmacy 37.7; Estimated Glomerular Filt Rate 50; Glucose Random 144 mg/dL (60-115); Potassium 4.6 mmol/L (3.3-5.1); Sodium 136 mmol/L (135-145)
[2020-08-09] MEDS: Albuterol/Iprat 2.5/0.5MG 3 ML AMPUL.NEB INHALE ×2 (07:24→11:12)
[2020-08-09] MEDS: Spironolactone 25 MG TABLET 12.5 MG PO (07:52)
[2020-08-09] MEDS: 0.9 % Sodium Chloride Flush 3 ML SYRINGE IVFLUSH (07:52)
[2020-08-09] MEDS: Cholecalciferol (Vitamin D3) 25 MCG TABLET 50 MCG PO (07:53)
[2020-08-09] MEDS: Sacubitril/Valsartan 24/26 1 TAB TABLET PO (07:53)
[2020-08-09] MEDS: Famotidine 20 MG TABLET PO (07:53)
[2020-08-09] MEDS: glipiZIDE 5 MG TABLET PO (07:53)
[2020-08-09] MEDS: Atorvastatin Calcium 80 MG TABLET PO (07:53)
[2020-08-09] MEDS: Ranolazine 500 MG TAB.ER.12H PO (07:53)
[2020-08-09] MEDS: Aspirin Enteric Coated 81 MG TABLET.DR PO (07:53)
[2020-08-09] MEDS: Isosorbide Mononitrate 60 MG TAB.ER.24H PO (07:54)
[2020-08-09 07:59] LABS: Glucose, Whole Blood 145 mg/dL (60-115)
[2020-08-09 11:20] LABS: Glucose, Whole Blood 223 mg/dL (60-115)
[2020-08-09] MEDS: Insulin Lispro 100 UNIT/ML 3 ML VIAL SUBCUT (11:28)
--- NOTE | 2020-08-09 13:10 | MHC.CM.PN ---
NURSE BROACH TROUBLE SHOOTER NOTE EECTRONIC MMEDICAL RECORD REVIEWED ALNG WITH DIASCHARGE INSTRUXCTIONS, CASE DISCUSSED WITH THE HSOPITALSIT AND THE STAFF GEMMA ,MET WITHN PATIENT AND ALSO PHONE HIS DTR KORINA SOLIS BOT H ARE IN AGREEMENT WITH HAVING THE [facility] FOR PSOT DISCHAGRE VISITS . AFTER REVIEW ANDCHOSE THE [facility] . SPOKE WITH COLE AND CONFIRMED ACCEPTANCE TTHE OFFICE WILL CALL [facility] FOR AUTH ON TUESDAY , FIRST VISIT ON TUESDAY OK WITH HOSPITLAIST AND PT/DTR. [facility] AND ASSESS FOR P.T.NEEDS IN THE HOME SETTING PCP EMANI ALBA PATIENT /DTR INSTRUCTED TO CALL FOR POST DISCHARGE FOLLW UP TRANSPORTATION FAMILY 2ND IMM EXPLAINED
--- NOTE | 2020-08-09 13:19 | PM.DS ---
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) heart failure: Status: Acute (2) Acute HFrEF (heart failure with reduced ejection fraction): Status: Acute DS: Medications Discharge Medications Home Medications: Home Medications Medication Instructions Recorded Confirmed aspirin 81 mg tablet,delayed 81 mg PO DAILY 06/02/20 08/06/20 release atorvastatin 80 mg tablet 80 mg PO DAILY 06/02/20 08/06/20 cholecalciferol (vitamin D3) 50 50 mcg PO DAILY 06/02/20 08/06/20 mcg (2,000 unit) capsule famotidine 20 mg tablet 20 mg PO DAILY 06/02/20 08/06/20 furosemide 80 mg tablet 80 mg PO DAILY tab 06/02/20 08/06/20 glipizide 5 mg tablet 5 mg PO DAILY 06/02/20 08/06/20 metoprolol succinate 50 mg 50 mg PO DAILY 06/02/20 08/06/20 tablet,extended release 24 hr sacubitril 24 mg-valsartan 26 mg 1 tab PO BID 06/02/20 08/06/20 tablet ipratropium-albuterol [Combivent 1 puff INHALATION QID 08/06/20 08/06/20 Respimat] Previous Rx's Medication Instructions Recorded tiotropium 2.5 mcg-olodaterol 2.5 2 puff INHALATION DAILY 30 Days #1 07/17/20 mcg/actuation mist for inhalation ea ranolazine 500 mg tablet,extended 500 mg PO BID #60 tab 07/22/20 release,12 hr isosorbide mononitrate 30 mg 30 mg PO QAM #30 tab 08/05/20 tablet,extended release 24 hr DS: Summary Hospital Course Hospital Course: 85 year old romansh speaking man presenting with left sided chest pressure with shortness of breath. He walked to the bank and at some point fell to the ground. He denied LOC or injury. He reported that he get s chest pain/presure off and on do to his chronic cardiac disease. Nuclear medicine scan from 06/22, showed LVEF of 19% with dilated LV cavity with lasrge areas of infarcted myocardium. Due to continued chest pain he had cardiac catheterization last week that showed patent bypass grafts with diffuse distal coronary artery disease with significant elevated filling pressures. His Lasix was increased. Mildly elevated troponin. He was given IV Lasix with ER appear to be admitted for further management treatment of acute on chronic congestive heart failure. Hospital Course problem allen section: Patient came with CHF exacerbation: Started on IV Lasix and subsequently shortness of breath seems improved feeling better, diuresed well, Ferguson removed-if patient able to urinate than then she he goes home. Seen by Cardiology- LVEF 50-20% and wall motion abnormalities from CAD; advanced diastolic dysfunction and moderate to severe mitral regurgitation and mild pulmonary hypertension. Cardiac catheterization with patent grafts, but diffuse disease in the LAD and OM. OM has 95% stenosis after the touchdown. blood pressure fluctuates : Patient says he has similar fluctuations at home too, but asymptomatic- Continue home medications including lasix , entersto,metoprol. Monitor BMP in 1 week with PCP and further management as per PCP. Above management discussed with the patient in detail length he understand and in agreement with the above plan, time spent 50 minutes and 50% time spent on counseling. Significant findings: As above. Procedures performed: None. Treatment and response: As above. Complications: None. Time Spent with Patient Time attestation: Total time spent providing and/or coordinating discharge services: Discharge coordination time: Greater than 30 minutes Physical Exam Vital Signs: Vital Signs: Last Vital Signs Temp 98.3 F 08/09/20 11:23 Pulse 73 08/09/20 11:23 Resp 20 08/09/20 11:23 BP 92/60 08/09/20 11:23 Pulse Ox 93 08/09/20 11:23 Body Mass Index 28.3 Physical exam: Constitutional: Not in acute distress. Cvs: rrr, [id number] , no murmur res: clear to auscultation ,no rhonchii or wheezing abd: no rebound or guarding ,nt, bs present. ext pulses present , no cyanosis neuro: axo3 , nonfocal. DS: Data Data Completed and Pending Labs on day of discharge: Laboratory Tests 08/06/20 08/06/20 08/06/20 09:37 09:37 09:37 WBC 5.1 RBC 4.08 L Hgb 13.5 L Hct 40.7 L MCV 99.8 H MCH 33.1 H MCHC 33.2 RDW 14.6 Plt Count 123 L MPV 11.9 Immature Gran % (Auto) 0.2 Neut % (Auto) 57.8 Lymph % (Auto) 27.6 [place] % (Auto) 10.7 Eos % (Auto) 2.7 Baso % (Auto) 1.0 Lymph # (Auto) 1.4 [place] # (Auto) 0.6 Eos # (Auto) 0.1 Baso # (Auto) 0.1 Abs Immat Gran (auto) 0.01 Absolute Neuts (auto) 3.0 Absolute Nucleated RBC 0.000 Nucleated RBC % (auto) 0.0 PT 13.6 H INR 1.1 APTT 31.7 D-Dimer 679 Sodium 141 Potassium 3.8 Chloride 104 Carbon Dioxide 24 Anion Gap 17 BUN 19 H Creatinine 1.34 Estim Creat Clear Calc 37.9 Estimated GFR 51 POC Glucose Random Glucose 200 H Calcium 8.5 D Magnesium Total Bilirubin 1.7 H Direct Bilirubin AST 18 ALT 23 Alkaline Phosphatase 74 Troponin I High Sens B-Natriuretic Peptide Total Protein 6.0 L Albumin 3.7 Urine Color Urine Appearance Urine pH Ur Specific [place] Urine Protein Urine Glucose (UA) Urine Ketones Urine Blood Urine Nitrite Ur Leukocyte Esterase Urine RBC Urine WBC Ur Squamous Epith Cells Urine Bacteria COVID-19 (PETE) COVID-19 Clin Com 08/06/20 08/06/20 08/06/20 09:37 09:37 09:37 WBC RBC Hgb Hct MCV MCH MCHC RDW Plt Count MPV Immature Gran % (Auto) Neut % (Auto) Lymph % (Auto) [place] % (Auto) Eos % (Auto) Baso % (Auto) Lymph # (Auto) [place] # (Auto) Eos # (Auto) Baso # (Auto) Abs Immat Gran (auto) Absolute Neuts (auto) Absolute Nucleated RBC Nucleated RBC % (auto) PT INR APTT D-Dimer Sodium Potassium Chloride Carbon Dioxide Anion Gap BUN Creatinine Estim Creat Clear Calc Estimated GFR POC Glucose Random Glucose Calcium Magnesium Total Bilirubin Direct Bilirubin AST ALT Alkaline Phosphatase Troponin I High Sens 48.0 H B-Natriuretic Peptide 3132 H Total Protein Albumin Urine Color Urine Appearance Urine pH Ur Specific [place] Urine Protein Urine Glucose (UA) Urine Ketones Urine Blood Urine Nitrite Ur Leukocyte Esterase Urine RBC Urine WBC Ur Squamous Epith Cells Urine Bacteria COVID-19 (PETE) Negative COVID-19 Clin Com See Note 08/06/20 08/06/20 08/06/20 11:30 12:55 18:29 WBC RBC Hgb Hct MCV MCH MCHC RDW Plt Count MPV Immature Gran % (Auto) Neut % (Auto) Lymph % (Auto) [place] % (Auto) Eos % (Auto) Baso % (Auto) Lymph # (Auto) [place] # (Auto) Eos # (Auto) Baso # (Auto) Abs Immat Gran (auto) Absolute Neuts (auto) Absolute Nucleated RBC Nucleated RBC % (auto) PT INR APTT D-Dimer Sodium Potassium Chloride Carbon Dioxide Anion Gap BUN Creatinine Estim Creat Clear Calc Estimated GFR POC Glucose 328 H Random Glucose Calcium Magnesium Total Bilirubin Direct Bilirubin AST ALT Alkaline Phosphatase Troponin I High Sens 49.0 H B-Natriuretic Peptide Total Protein Albumin Urine Color YELLOW Urine Appearance CLEAR Urine pH 6.0 Ur Specific [place] 1.020 Urine Protein NEG Urine Glucose (UA) 100 H Urine Ketones NEG Urine Blood TRACE Urine Nitrite NEG Ur Leukocyte Esterase NEG Urine RBC 0-2 Urine WBC 5-9 H Ur Squamous Epith Cells NONE Urine Bacteria 2+ COVID-19 (PETE) COVID-19 Clin Com 08/06/20 08/07/20 08/07/20 20:23 06:18 06:18 WBC 5.3 RBC 4.16 L Hgb 13.6 L Hct 40.8 L MCV 98.1 H MCH 32.7 MCHC 33.3 RDW 14.4 Plt Count 139 L MPV 11.9 Immature Gran % (Auto) 0.2 Neut % (Auto) 59.6 Lymph % (Auto) 27.0 [place] % (Auto) 9.8 Eos % (Auto) 2.6 Baso % (Auto) 0.8 Lymph # (Auto) 1.4 [place] # (Auto) 0.5 Eos # (Auto) 0.1 Baso # (Auto) 0.0 Abs Immat Gran (auto) 0.01 Absolute Neuts (auto) 3.2 Absolute Nucleated RBC 0.000 Nucleated RBC % (auto) 0.0 PT INR APTT D-Dimer Sodium 142 Potassium 3.1 L Chloride 102 Carbon Dioxide 29 Anion Gap 14 BUN 20 H Creatinine 1.22 Estim Creat Clear Calc 41.7 Estimated GFR 57 POC Glucose 392 H* Random Glucose 183 H Calcium 8.8 Magnesium 2.3 Total Bilirubin 1.2 H Direct Bilirubin 0.6 H AST 15 ALT 20 Alkaline Phosphatase 79 Troponin I High Sens B-Natriuretic Peptide Total Protein 6.0 L Albumin 3.6 Urine Color Urine Appearance Urine pH Ur Specific [place] Urine Protein Urine Glucose (UA) Urine Ketones Urine Blood Urine Nitrite Ur Leukocyte Esterase Urine RBC Urine WBC Ur Squamous Epith Cells Urine Bacteria COVID-19 (PETE) COVID-19 Clin Com 08/07/20 08/07/20 08/07/20 09:04 11:52 16:13 WBC RBC Hgb Hct MCV MCH MCHC RDW Plt Count MPV Immature Gran % (Auto) Neut % (Auto) Lymph % (Auto) [place] % (Auto) Eos % (Auto) Baso % (Auto) Lymph # (Auto) [place] # (Auto) Eos # (Auto) Baso # (Auto) Abs Immat Gran (auto) Absolute Neuts (auto) Absolute Nucleated RBC Nucleated RBC % (auto) PT INR APTT D-Dimer Sodium Potassium Chloride Carbon Dioxide Anion Gap BUN Creatinine Estim Creat Clear Calc Estimated GFR POC Glucose 294 H 231 H 271 H Random Glucose Calcium Magnesium Total Bilirubin Direct Bilirubin AST ALT Alkaline Phosphatase Troponin I High Sens B-Natriuretic Peptide Total Protein Albumin Urine Color Urine Appearance Urine pH Ur Specific [place] Urine Protein Urine Glucose (UA) Urine Ketones Urine Blood Urine Nitrite Ur Leukocyte Esterase Urine RBC Urine WBC Ur Squamous Epith Cells Urine Bacteria COVID-19 (PETE) COVID-19 Clin Com 08/07/20 08/08/20 08/08/20 20:12 07:05 08:01 WBC RBC Hgb Hct MCV MCH MCHC RDW Plt Count MPV Immature Gran % (Auto) Neut % (Auto) Lymph % (Auto) [place] % (Auto) Eos % (Auto) Baso % (Auto) Lymph # (Auto) [place] # (Auto) Eos # (Auto) Baso # (Auto) Abs Immat Gran (auto) Absolute Neuts (auto) Absolute Nucleated RBC Nucleated RBC % (auto) PT INR APTT D-Dimer Sodium Potassium Chloride Carbon Dioxide Anion Gap BUN Creatinine Estim Creat Clear Calc Estimated GFR POC Glucose 251 H 108 106 Random Glucose Calcium Magnesium Total Bilirubin Direct Bilirubin AST ALT Alkaline Phosphatase Troponin I High Sens B-Natriuretic Peptide Total Protein Albumin Urine Color Urine Appearance Urine pH Ur Specific [place] Urine Protein Urine Glucose (UA) Urine Ketones Urine Blood Urine Nitrite Ur Leukocyte Esterase Urine RBC Urine WBC Ur Squamous Epith Cells Urine Bacteria COVID-19 (PETE) COVID-19 Clin Com 08/08/20 08/08/20 08/08/20 08:37 11:30 16:34 WBC RBC Hgb Hct MCV MCH MCHC RDW Plt Count MPV Immature Gran % (Auto) Neut % (Auto) Lymph % (Auto) [place] % (Auto) Eos % (Auto) Baso % (Auto) Lymph # (Auto) [place] # (Auto) Eos # (Auto) Baso # (Auto) Abs Immat Gran (auto) Absolute Neuts (auto) Absolute Nucleated RBC Nucleated RBC % (auto) PT INR APTT D-Dimer Sodium 140 Potassium 4.0 D Chloride 102 Carbon Dioxide 30 H Anion Gap 12 BUN 14 Creatinine 1.20 Estim Creat Clear Calc 42.4 Estimated GFR 58 POC Glucose 194 H 97 Random Glucose 139 H Calcium 8.8 Magnesium Total Bilirubin Direct Bilirubin AST ALT Alkaline Phosphatase Troponin I High Sens B-Natriuretic Peptide Total Protein Albumin Urine Color Urine Appearance Urine pH Ur Specific [place] Urine Protein Urine Glucose (UA) Urine Ketones Urine Blood Urine Nitrite Ur Leukocyte Esterase Urine RBC Urine WBC Ur Squamous Epith Cells Urine Bacteria COVID-19 (PETE) COVID-19 Clin Com 08/08/20 08/09/20 08/09/20 20:38 06:08 07:20 WBC RBC Hgb Hct MCV MCH MCHC RDW Plt Count MPV Immature Gran % (Auto) Neut % (Auto) Lymph % (Auto) [place] % (Auto) Eos % (Auto) Baso % (Auto) Lymph # (Auto) [place] # (Auto) Eos # (Auto) Baso # (Auto) Abs Immat Gran (auto) Absolute Neuts (auto) Absolute Nucleated RBC Nucleated RBC % (auto) PT INR APTT D-Dimer Sodium 136 Potassium 4.6 Chloride 100 Carbon Dioxide 28 Anion Gap 13 BUN 22 H D Creatinine 1.35 Estim Creat Clear Calc 37.7 Estimated GFR 50 POC Glucose 216 H 145 H Random Glucose 144 H Calcium 8.9 Magnesium Total Bilirubin Direct Bilirubin AST ALT Alkaline Phosphatase Troponin I High Sens B-Natriuretic Peptide Total Protein Albumin Urine Color Urine Appearance Urine pH Ur Specific [place] Urine Protein Urine Glucose (UA) Urine Ketones Urine Blood Urine Nitrite Ur Leukocyte Esterase Urine RBC Urine WBC Ur Squamous Epith Cells Urine Bacteria COVID-19 (PETE) COVID-19 Clin Com 08/09/20 11:04 WBC RBC Hgb Hct MCV MCH MCHC RDW Plt Count MPV Immature Gran % (Auto) Neut % (Auto) Lymph % (Auto) [place] % (Auto) Eos % (Auto) Baso % (Auto) Lymph # (Auto) [place] # (Auto) Eos # (Auto) Baso # (Auto) Abs Immat Gran (auto) Absolute Neuts (auto) Absolute Nucleated RBC Nucleated RBC % (auto) PT INR APTT D-Dimer Sodium Potassium Chloride Carbon Dioxide Anion Gap BUN Creatinine Estim Creat Clear Calc Estimated GFR POC Glucose 223 H Random Glucose Calcium Magnesium Total Bilirubin Direct Bilirubin AST ALT Alkaline Phosphatase Troponin I High Sens B-Natriuretic Peptide Total Protein Albumin Urine Color Urine Appearance Urine pH Ur Specific [place] Urine Protein Urine Glucose (UA) Urine Ketones Urine Blood Urine Nitrite Ur Leukocyte Esterase Urine RBC Urine WBC Ur Squamous Epith Cells Urine Bacteria COVID-19 (PETE) COVID-19 Clin Com Discharge Plan Discharge Patient Disposition: Home Health Service Referrals: Caroline Rudolph DO [Primary Care Provider] - Discharge Medications: Continued isosorbide mononitrate 30 mg tablet extended release 24 hr 30 mg PO QAM Qty: 30 RF: 6 Combivent Respimat 20-100 mcg/actuation Mist 1 puff INHALATION QID RF: 0 Entresto 24-26 mg tablet 1 tab PO BID RF: 0 cholecalciferol (vitamin D3) 50 mcg (2,000 unit) capsule 50 mcg PO DAILY RF: 0 glipizide 5 mg tablet 5 mg PO DAILY RF: 0 furosemide 80 mg tablet 80 mg PO DAILY RF: 0 atorvastatin 80 mg tablet 80 mg PO DAILY RF: 0 aspirin 81 mg tablet,delayed release (DR/EC) 81 mg PO DAILY RF: 0 metoprolol succinate 50 mg tablet extended release 24 hr 50 mg PO DAILY RF: 0 famotidine 20 mg tablet 20 mg PO DAILY RF: 0 ranolazine [Ranexa] 500 mg tablet extended release 12 hr 500 mg PO BID Qty: 60 RF: 1 Stiolto Respimat 2.5-2.5 mcg/actuation mist 2 puff inhalation DAILY 30 Days Qty: 1 RF: 6 Discharge Orders: Discharge Order (Routine); Ordered 08/09/20 Ordered By: Melvina Wang Diet: advance to usual diet and diabetic diet Activity on Discharge: As tolerated Stand Alone Forms: Patient Portal Discharge page Other Ambulatory Orders: Basic Metabolic Panel Fasting (Routine) Timeframe: 1 Week Facility: [facility] - Location: Laboratory Ordered By: Melvina Wang Visit Report Forms: Patient Portal Discharge page Care Plan Goals: Patient came with CHF exacerbation: Started on IV Lasix and subsequently shortness of breath seems improved feeling better, Ferguson removed-if patient able to urinate than then she he goes home. Monitor BMP in 1 week with PCP and further management as per PCP. Blood pressure fluctuates, this is cardiology : Patient says he has similar fluctuations at home too, but asymptomatic- Continue home medications. Health Concerns: As above. Plan of Treatment: As above.
--- NOTE | 2020-08-09 13:25 | P.F2F_ITS ---
Service Date Service Date: 08/09/20 Encounter Date of encounter: 08/09/20 Encounter: chf , blood pressure fluctuating. Reasons for Services Homebound: Leaving the home is medically contraindicated at this time without the asist of a device and/or another person due th the listed conditions above and below. Homebound supporting statement: Patient is generalized weak and, needs help with labs, blood pressure monitoring and appointments. Certification: Based on the above findings, I certify that this patient is confined to the home and needs intermittent senior living care, physical therapy and/or speech therapy, or continues to need occupational therapy. The patient is under my care, and I have initiated the establishment of the plan of care. The patient will be followed by a physician who will periodically review the plan of care.
== END 2020-08-09 14:59 | disposition home health service (06) | DRG 293 ==
LOC: HO.ED 09:13 → HO.EDOVER 13:23 → HO.S3 08-07 13:25
PROVIDERS: Internal Medicine; Nurse Practitioner Acute Care; Nurse Practitioner Primary Care; Admitting Provider Family Medicine; Emergency Provider Emergency Medicine; PCP Family Medicine; Visit Provider Family Medicine
DX: I50.23 Acute on chronic systolic (congestive) heart failure (principal); Z95.1 Presence of aortocoronary bypass graft; I25.5 Ischemic cardiomyopathy; I25.118 Atherosclerotic heart disease of native coronary artery with other forms of angina pectoris; E78.5 Hyperlipidemia, unspecified; J44.9 Chronic obstructive pulmonary disease, unspecified; I44.7 Left bundle-branch block, unspecified; I34.0 Nonrheumatic mitral (valve) insufficiency; I25.2 Old myocardial infarction; E87.6 Hypokalemia; E11.9 Type 2 diabetes mellitus without complications; Z20.822 Contact with and (suspected) exposure to COVID-19; Z79.82 Long term (current) use of aspirin; Z79.84 Long term (current) use of oral hypoglycemic drugs; Z79.899 Other long term (current) drug therapy
CPT/HCPCS: 36415; 71045; 80048; 80053; 80076; 81001; 82947; 83735; 83880; 84484; 85025; 85379; 85610; 85730; 87086; 87635; 93005; 94640; 96374; 99285; J1650; J1940

== ENCOUNTER → 2020-08-14 09:55 | Outpatient (BNVA) | payer MEDICARE, SELFPAY | PROVIDERS: PCP Family Medicine; Visit Provider Internal Medicine Pulmonary Disease | DX: J44.9 Chronic obstructive pulmonary disease, unspecified (principal); R06.02 Shortness of breath | CPT/HCPCS: 99212 ==

== ENCOUNTER → 2020-08-25 11:01 | Outpatient (BNVA) | payer MEDICARE, SELFPAY | PROVIDERS: PCP Family Medicine; Visit Provider Nurse Practitioner Family | DX: I50.23 Acute on chronic systolic (congestive) heart failure (principal); I34.0 Nonrheumatic mitral (valve) insufficiency; I25.10 Atherosclerotic heart disease of native coronary artery without angina pectoris; I44.7 Left bundle-branch block, unspecified; I25.5 Ischemic cardiomyopathy | CPT/HCPCS: 99212 ==

== ENCOUNTER → 2020-09-01 09:53 | Outpatient (BNVA) | payer MEDICARE, SELFPAY | PROVIDERS: PCP Family Medicine; Visit Provider Nurse Practitioner Family | DX: I50.23 Acute on chronic systolic (congestive) heart failure (principal); I34.0 Nonrheumatic mitral (valve) insufficiency; I25.10 Atherosclerotic heart disease of native coronary artery without angina pectoris; I44.7 Left bundle-branch block, unspecified; I25.5 Ischemic cardiomyopathy | CPT/HCPCS: 99212 ==

== ENCOUNTER 2020-09-01 11:03 | Inpatient (IN) | payer OTHER, SELFPAY ==
[2020-09-01] VITALS (7 sets, daily range): BP systolic 101–117; BP diastolic 58–71; PULSE 68–77; RESP 18–28; TEMP 36.4–37.2; O2SAT 92–98; BMI 23.6
--- NOTE | ~2020-09-01 | XR_ITS ---
EXAMINATION: XR CHEST CLINICAL INFORMATION: Dyspnea COMPARISON: None TECHNIQUE: Frontal view of the chest was obtained. FINDINGS: The cardiac silhouette is enlarged. There are post-CABG changes. There are increased perihilar markings and small right pleural effusion. Findings are suggestive of mild CHF. Bony structures are unremarkable. XR/XR chest 1V IMPRESSION: Enlarged cardiac silhouette and mild CHF.
--- NOTE | 2020-09-01 11:11 | ECG_ITS ---
Test Reason : REPEAT Blood Pressure : / mmHG Vent. Rate : 072 BPM Atrial Rate : 072 BPM P-R Int : 152 ms QRS Dur : 152 ms QT Int : 466 ms P-R-T Axes : 049 053 152 degrees QTc Int : 510 ms Sinus rhythm with Premature atrial complexes Left bundle branch block Abnormal ECG When compared with ECG of 21-SEP-2019 17:37, T wave inversion less evident in Lateral leads Referred By: Karishma Cuevas Electronically Signed By: KALEIGH GODOY
--- NOTE | 2020-09-01 11:12 | ED_ITS ---
HPI - SOB/Dyspnea General Chief Complaint: Dyspnea Stated Complaint: fluid in his lungs Time Seen by Provider: 09/01/20 11:10 Source: patient, old records reviewed and crisis intervention counselor Mode of arrival: ambulatory Limitations: no limitations History of Present Illness HPI Narrative: 85 yo male with COPD and CHF sent by Cardiology for CHF exacerbation reports dyspnea worsening over 1 week MD elicited complaint: shortness of breath Pertinent past history: COPD and congestive heart failure Onset (ago): day(s) (7) Timing: constant and progressively worsening Severity: moderate Exacerbating factors: lying flat, exertion and movement Relieving factors: oxygen and rest Known history of: COPD and congestive heart failure Associated symptoms: orthopnea Treatment prior to arrival: none Related Data Home Medications Medication Instructions Recorded Confirmed aspirin [Aspir-81] 81 mg PO DAILY 09/01/20 09/01/20 atorvastatin 80 mg PO DAILY 09/01/20 09/01/20 cholecalciferol (vitamin D3) 50 mcg PO DAILY 09/01/20 09/01/20 dulaglutide [Trulicity] 0.75 mg SUBCUT QWEEK 09/01/20 09/01/20 famotidine 20 mg PO DAILY 09/01/20 09/01/20 furosemide 80 mg PO BID 09/01/20 09/01/20 glipizide 5 mg PO DAILY 09/01/20 09/01/20 ipratropium-albuterol [Combivent 1 puff INHALATION QID 09/01/20 09/01/20 Respimat] isosorbide mononitrate 30 mg PO DAILY 09/01/20 09/01/20 metoprolol succinate 50 mg PO DAILY 09/01/20 09/01/20 nitroglycerin 0.4 mg SUBLINGUAL Q5M PRN 09/01/20 09/01/20 ondansetron HCl 8 mg PO BID PRN 09/01/20 09/01/20 polyvinyl alcohol [Artificial 1 drp OPHTHALMIC (EYE) Q4H PRN 09/01/20 09/01/20 Tears (polyvin alc)] ranolazine 500 mg PO BID 09/01/20 09/01/20 tiotropium-olodaterol [Stiolto 2 puff INHALATION DAILY 09/01/20 09/01/20 Respimat] Previous Rx's Medication Instructions Recorded sacubitril 24 mg-valsartan 26 mg 1 tab PO BID 90 Days #180 tab 05/19/20 tablet Allergies Allergy/AdvReac Type Severity Reaction Status Date / Time No Known Allergies Allergy Unverified 03/20/20 19:50 [No Known Allergies*] Review of Systems Review of Systems: Constitutional : No Fever, No Chills ENT/Mouth : No sore throat, No Rhinorrhea, No Swallowing Difficulty Eyes: No Eye Pain, No Swelling, No Redness Cardiovascular : No Chest Pain, positive SOB, No Orthopnea, positive Edema Respiratory : No Cough, No Sputum, No Wheezing, positive dyspnea Gastrointestinal : No Nausea, No Vomiting, No Diarrhea, No abdominal Pain, No Hematochezia, No Melena Genitourinary : No Dysuria, No Urinary Frequency, No Hematuria Musculoskeletal : No joint pain, No Myalgias Skin : No Skin Lesions, No rash Neuro : No Weakness, No Numbness, No Dizziness, No Headache Psych : No Anxiety/Panic, No Depression Heme/Lymph: No Bruising, No Lymphadenopathy Endocrine : No Polyuria, No Polydipsia All other systems reviewed and are negative COUNT INCLUDES THE [facility] Past Medical History Attestation statement: The following information was validated with the patient. Medical History (Updated 09/01/20 @ 13:45 by Karishma Cuevas DO) CAD (coronary artery disease) Congestive heart failure COPD (chronic obstructive pulmonary disease) Diabetes GERD (gastroesophageal reflux disease) Hyperlipidemia Surgical History (Updated 09/01/20 @ 11:24 by Karishma Cuevas DO) Hx of CABG Social History Social History (Updated 09/01/20 @ 11:25 by Karishma Cuevas DO) Smoking Status: Never smoker Use of substances other than those prescribed or required for medical reasons: No Advance Directives: No Advance Directives Information Provided: No Physical Exam Vital Signs: Vital Signs: Last Vital Signs Temp 98.5 F 09/01/20 11:17 Pulse 73 09/01/20 11:37 Resp 28 H 09/01/20 11:17 BP 101/64 09/01/20 11:17 Pulse Ox 98 09/01/20 11:17 Body Mass Index 23.6 Appearance: Alert. Oriented X3. Mild acute distress. Eyes: Pupils equal, round and reactive to light. ENT: Pharynx normal. Neck: Normal inspection. Neck supple. CVS: Normal heart rate and rhythm. Pulses normal. Respiratory: Mild respiratory distress with tachypnea and retractions. Breath sounds decreased with rales in bilateral bases Abdomen: Soft and nontender. Skin: Skin warm and dry. Normal skin color. Normal skin turgor. Extremities: 1+ pitting bilateral lower extremity edema. No calf ttp Neuro: Oriented X 3. No motor deficit. No sensory deficit. Course Course Course Narrative: given BNP will need admission for diuresis, has put out almost 1L post IV lasix 40mg MDM - SOB/Dyspnea MDM Narrative Medical decision making narrative: 85 yo male with COPD and hx of CHF c/o orthopnea weight gain, LE edema sent by Cardiology for dyspnea and CHF exacer bation at this time labs, neb, IV steroids, IV lasix, he denies any infectious symptoms and denies chest pain, plan is to admit patient per Cardiology Lab Data Result diagrams: 09/01/20 11:44 09/01/20 11:44 Labs: Lab Results 09/01/20 09/01/20 09/01/20 Range/Units 11:44 11:44 11:44 WBC 5.1 (4.8-10.8) X10*3/uL RBC 4.12 L (4.60-5.80) X10*6/uL Hgb 13.4 L (14.0-18.0) g/dl Hct 40.7 L (42-52) % MCV 98.8 H (80-98) fL MCH 32.5 (27.0-33.0) pg MCHC 32.9 (31.0-36.0) g/dl RDW 15.4 (11.0-16.0) % Plt Count 142 L (160-400) X10*3/uL MPV 11.1 (9.4-12.4) fL Immature Gran % (Auto) 0.6 H (0.0-0.4) % Neut % (Auto) 63.5 (45-73) % Lymph % (Auto) 23.8 (20-40) % [place] % (Auto) 9.7 (2-11) % Eos % (Auto) 1.8 (0-4) % Baso % (Auto) 0.6 (0-2) % Lymph # (Auto) 1.2 (1.2-4.9) X10*3/uL [place] # (Auto) 0.5 (0.1-1.2) X10*3/uL Eos # (Auto) 0.1 (0.0-0.4) X10*3/uL Baso # (Auto) 0.0 (0.0-0.2) X10*3/uL Abs Immat Gran (auto) 0.03 (0.00-0.03) X10*3/uL Absolute Neuts (auto) 3.3 (2.0-8.3) X10*3/uL Absolute Nucleated RBC 0.000 (0.0-0.012) X10*3/uL Nucleated RBC % (auto) 0.0 (0.0-0.2) /100WBC PT 13.5 H (10.8-13.0) SEC INR 1.1 (0.9-1.1) APTT 31.6 (24.1-38.0) SEC Sodium 143 (135-145) mmol/L Potassium 3.4 (3.3-5.1) mmol/L Chloride 104 (96-108) mmol/L Carbon Dioxide 30 H (22-29) mmol/L Anion Gap 12 (12-20) BUN 27 H (9-16) mg/dL Creatinine 1.41 H (0.5-1.4) mg/dL Estim Creat Clear Calc 32.6 Estimated GFR 48 Random Glucose 122 H (60-115) mg/dL Calcium 9.4 (8.4-10.2) mg/dL Magnesium 2.6 (1.6-2.6) mg/dL Total Bilirubin 2.5 H (0.0-1.0) mg/dL Direct Bilirubin 0.8 H (0.0-0.5) mg/dL AST 22 (5-37) U/L ALT 45 H (0-40) U/L Alkaline Phosphatase 82 (39-117) U/L Troponin I High Sens (<3.5-35.0) ng/L B-Natriuretic Peptide (<100) pg/mL Total Protein 7.0 (6.5-8.0) g/dL Albumin 4.5 (3.5-5.0) g/dL Lipase 18 (8-78) U/L COVID-19 (PETE) (Negative) COVID-19 Clin Com 09/01/20 09/01/20 Range/Units 11:44 11:44 WBC (4.8-10.8) X10*3/uL RBC (4.60-5.80) X10*6/uL Hgb (14.0-18.0) g/dl Hct (42-52) % MCV (80-98) fL MCH (27.0-33.0) pg MCHC (31.0-36.0) g/dl RDW (11.0-16.0) % Plt Count (160-400) X10*3/uL MPV (9.4-12.4) fL Immature Gran % (Auto) (0.0-0.4) % Neut % (Auto) (45-73) % Lymph % (Auto) (20-40) % [place] % (Auto) (2-11) % Eos % (Auto) (0-4) % Baso % (Auto) (0-2) % Lymph # (Auto) (1.2-4.9) X10*3/uL [place] # (Auto) (0.1-1.2) X10*3/uL Eos # (Auto) (0.0-0.4) X10*3/uL Baso # (Auto) (0.0-0.2) X10*3/uL Abs Immat Gran (auto) (0.00-0.03) X10*3/uL Absolute Neuts (auto) (2.0-8.3) X10*3/uL Absolute Nucleated RBC (0.0-0.012) X10*3/uL Nucleated RBC % (auto) (0.0-0.2) /100WBC PT (10.8-13.0) SEC INR (0.9-1.1) APTT (24.1-38.0) SEC Sodium (135-145) mmol/L Potassium (3.3-5.1) mmol/L Chloride (96-108) mmol/L Carbon Dioxide (22-29) mmol/L Anion Gap (12-20) BUN (9-16) mg/dL Creatinine (0.5-1.4) mg/dL Estim Creat Clear Calc Estimated GFR Random Glucose (60-115) mg/dL Calcium (8.4-10.2) mg/dL Magnesium (1.6-2.6) mg/dL Total Bilirubin (0.0-1.0) mg/dL Direct Bilirubin (0.0-0.5) mg/dL AST (5-37) U/L ALT (0-40) U/L Alkaline Phosphatase (39-117) U/L Troponin I High Sens 48.9 H (<3.5-35.0) ng/L B-Natriuretic Peptide 4284 H (<100) pg/mL Total Protein (6.5-8.0) g/dL Albumin (3.5-5.0) g/dL Lipase (8-78) U/L COVID-19 (PETE) Negative (Negative) COVID-19 Clin Com See Note ECG Data Attestation: I personally reviewed and interpreted this ECG as follows: ECG interpretation date: 09/01/20 ECG interpretation time: 11:30 Interpretation: Rate: 72 Rhythm: NSR [place]: normal Normal P waves. Normal WINNIE. LBBB ST T wave : no DEBRA, inverted I and aVL qTC: normal prior studies: no change September 2019 The study has been interpreted contemporaneously by me. . Discharge Plan Discharge Clinical Impression: Acute dyspnea, CHF (congestive heart failure) Patient Disposition: Admitted As Inpatient Prescriptions: No Action Entresto 24-26 mg tablet 1 tab PO BID 90 Days Qty: 180 RF: 1 polyvinyl alcohol [Artificial Tears (polyvin alc)] 1.4 % Drops 1 drp OPHTHALMIC (EYE) Q4H PRN (Reason: Dry Eye(S)) RF: 0 ondansetron HCl 4 mg Tablet 8 mg PO BID PRN (Reason: Nausea And Vomiting) RF: 0 nitroglycerin 0.4 mg Tablet, Sublingual 0.4 mg SUBLINGUAL Q5M PRN (Reason: Chest Pain) RF: 0 Trulicity 0.75 mg/0.5 mL Pen Injector 0.75 mg SUBCUT QWEEK RF: 0 atorvastatin 80 mg Tablet 80 mg PO DAILY RF: 0 isosorbide mononitrate 30 mg Tablet Extended Release 24 Hr 30 mg PO DAILY RF: 0 glipizide 5 mg Tablet 5 mg PO DAILY RF: 0 ranolazine 500 mg Tablet Extended Release 12 Hr 500 mg PO BID RF: 0 cholecalciferol (vitamin D3) 50 mcg (2,000 unit) Capsule 50 mcg PO DAILY RF: 0 Combivent Respimat 20-100 mcg/actuation Mist 1 puff INHALATION QID RF: 0 aspirin [Aspir-81] 81 mg Tablet,Delayed Release (Dr/Ec) 81 mg PO DAILY RF: 0 famotidine 20 mg Tablet 20 mg PO DAILY RF: 0 furosemide 80 mg Tablet 80 mg PO BID RF: 0 Stiolto Respimat 2.5-2.5 mcg/actuation Mist 2 puff INHALATION DAILY RF: 0 metoprolol succinate 50 mg Tablet Extended Release 24 Hr 50 mg PO DAILY RF: 0
[2020-09-01] MEDS: Albuterol Sulfate (0.083%) 2.5 MG/3 ML VIAL.NEB INHALE (11:35)
[2020-09-01 11:50] LABS: MANUAL DIFF FLAG NO
[2020-09-01] MEDS: Furosemide 40 MG/4 ML VIAL IVPUSH (11:50)
[2020-09-01 11:58] LABS: Basophils Percent Auto 0.6 % (0-2); Eosinophils Absolute Auto 0.1 X10*3/uL (0.0-0.4); Eosinophils Percent Auto 1.8 % (0-4); Hematocrit 40.7 % (42-52); Hemoglobin 13.4 g/dl (14.0-18.0); Imm Gran Abs Auto 0.03 X10*3/uL (0.00-0.03); Imm Gran Pct Auto 0.6 % (0.0-0.4); Lymphocytes Absolute Auto 1.2 X10*3/uL (1.2-4.9); Lymphocytes Percent Auto 23.8 % (20-40); Mean Corpuscular HGB Conc 32.9 g/dl (31.0-36.0); Mean Corpuscular Hemoglobin 32.5 pg (27.0-33.0); Mean Corpuscular Volume 98.8 fL (80-98); Mean Platelet Volume 11.1 fL (9.4-12.4); Monocytes Absolute Auto 0.5 X10*3/uL (0.1-1.2); Monocytes Percent Auto 9.7 % (2-11); Neutrophils Absolute Auto 3.3 X10*3/uL (2.0-8.3); Neutrophils Percent Auto 63.5 % (45-73); Platelet Count 142 X10*3/uL (160-400); Red Blood Count 4.12 X10*6/uL (4.60-5.80); Red Cell Distribution Width 15.4 % (11.0-16.0); White Blood Count 5.1 X10*3/uL (4.8-10.8)
[2020-09-01 11:59] LABS: INTERNATIONAL NORM RATIO 1.1 (0.9-1.1); Prothrombin Time 13.5 SEC (10.8-13.0)
[2020-09-01 12:01] LABS: Partial Thromboplastin Time 31.6 SEC (24.1-38.0)
[2020-09-01 12:18] LABS: Alanine Aminotransferase 45 U/L (0-40); Albumin Level 4.5 g/dL (3.5-5.0); Alkaline Phosphatase 82 U/L (39-117); Anion Gap 12 (12-20); Aspartate Amino Transferase 22 U/L (5-37); Bilirubin Direct 0.8 mg/dL (0.0-0.5); Bilirubin Total 2.5 mg/dL (0.0-1.0); Blood Urea Nitrogen 27 mg/dL (9-16); Calcium 9.4 mg/dL (8.4-10.2); Carbon Dioxide 30 mmol/L (22-29); Chloride 104 mmol/L (96-108); Creatinine Clr Calc Pharmacy 32.6; Estimated Glomerular Filt Rate 48; Glucose Random 122 mg/dL (60-115); Lipase 18 U/L (8-78); Magnesium 2.6 mg/dL (1.6-2.6); Potassium 3.4 mmol/L (3.3-5.1); Sodium 143 mmol/L (135-145)
[2020-09-01] MEDS: methylPREDNISolone Sod Succ/PF 125 MG/2 ML VIAL 60 MG IVPUSH (12:21)
[2020-09-01 12:33] LABS: COVID-19 Test Negative (Negative); IDNOW Serial# 9DD0AD1C
[2020-09-01 12:37] LABS: B Type Natriuretic Peptide 4284 pg/mL (<100); Troponin-I High Sensitivity 48.9 ng/L (<3.5-35.0)
--- NOTE | 2020-09-01 16:26 | PM.EVENT ---
Event Note Date of Service: 09/01/20 Event Note: Patient seen and examined independently and was present during deleon portion of E/M service. Agree with midlevel's history, physical, assessment, and plan. 85M presented with shortness of breath Acute CHF, unspecified IV Lasix Echo Monitor labs Acute kidney injury Like cardiorenal Monitor
--- NOTE | 2020-09-01 17:13 | P.HPHOSP_ITS ---
History of Present Illness Date of Service: 09/01/20 Chief Complaint: Shortness of breath 85-year-old man presenting to the ER with complaints of worsening shortness of breath. He reports that he has a history of congestive heart failure and has been taking his Lasix however he has had worsening shortness of breath over the last 4 weeks. He was seen by a the cardiology office today and sent to the ER. He denied nausea, vomiting, diarrhea, fever, chills. He did report some lower extremity edema. His creatinine was elevated 1.41, BNP 4284. He was given IV Lasix, albuterol and Solu-Medrol in the ER. He will be admitted for further management and treatment of acute on chronic congestive heart failure. Review of Systems Review of Systems: Denies any recent fever chills or decrease in appetite respiratory See HPI cardiovascular is adjustment of any PND or edema gastrointestinal denies any dysphagia abdominal pain nausea vomiting or diarrhea genitourinary denies any dysuria frequency or hematuria musculoskeletal denies any joint pain or swelling neuropsych denies any weakness or seizures all other systems reviewed are negative [facility] Medical History (Updated 09/01/20 @ 13:45 by Karishma Cuevas DO) CAD (coronary artery disease) Congestive heart failure COPD (chronic obstructive pulmonary disease) Diabetes GERD (gastroesophageal reflux disease) Hyperlipidemia Surgical History (Updated 09/01/20 @ 11:24 by Karishma Cuevas DO) Hx of CABG Social History (Updated 09/01/20 @ 11:25 by Karishma Cuevas DO) Smoking Status: Never smoker Use of substances other than those prescribed or required for medical reasons: No Advance Directives: No Advance Directives Information Provided: No Meds Allergies Allergy/AdvReac Type Severity Reaction Status Date / Time No Known Allergies Allergy Unverified 03/20/20 19:50 [No Known Allergies*] Active Medications: Current Medications Generic Name Dose Route Start Last Admin Trade Name Freq PRN Reason Stop Dose Admin Acetaminophen 650 mg 09/01/20 17:07 Acetaminophen 325 Mg Tablet PO Q6H PRN Pain, Mild (Pain Scale 1-3) Artificial Tears 1 drop 09/01/20 17:07 Artificial Tears 15 Ml Drops EYE-BOTH Q4H PRN Dry Eye(S) Aspirin 81 mg 09/02/20 09:00 Aspirin Enteric Coated 81 Mg Tablet. PO DAILY WINNIE Atorvastatin Calcium 80 mg 09/02/20 09:00 Atorvastatin Calcium 80 Mg Tablet PO DAILY [facility] Famotidine 20 mg 09/02/20 09:00 Famotidine 20 Mg Tablet PO DAILY [facility] Furosemide 60 mg 09/01/20 18:00 Furosemide 100 Mg/10 Ml Vial IVPUSH BID@0900,1800 [facility] Protocol Glipizide 5 mg 09/02/20 09:00 Glipizide 5 Mg Tablet PO DAILY [facility] Insulin Human Lispro 0 unit 09/01/20 21:00 Insulin Lispro 100 Unit/Ml 3 Ml Vial SUBCUT QIDACHS [facility] Protocol Isosorbide Mononitrate 30 mg 09/02/20 09:00 Isosorbide Mononitrate 30 Mg Tab.Er.24h PO DAILY [facility] Protocol Metoprolol Succinate 50 mg 09/02/20 09:00 Metoprolol Succinate Er 50 Mg Tab.Er.24h PO DAILY [facility] Protocol Nitroglycerin 0.4 mg 09/01/20 17:07 Nitroglycerin 0.4 Mg Tab.Subl SUBLINGUAL Q5M PRN Chest Pain Ondansetron HCl 4 mg 09/01/20 17:07 Ondansetron Hcl 4 Mg/2 Ml Vial IVPUSH Q8H PRN Nausea and Vomiting Pharmacy Consult 1 each 09/01/20 11:11 Consult Rx Perform Med Rec MISCELLANE ONCE PRN Consult order Ranolazine 500 mg 09/01/20 21:00 Ranolazine 500 Mg Tab.Er.12h PO BID [facility] Sacubitril/Valsartan 1 tab 09/01/20 21:00 Sacubitril/Valsartan 24 1 Tab Tablet PO BID [facility] Protocol Sodium Chloride 3 ml 09/02/20 00:00 0.9 % Sodium Chloride Flush 3 Ml Syringe IVFLUSH QSHIFT [facility] Vitamin D 50 mcg 09/02/20 09:00 Cholecalciferol (Vitamin D3) 25 Mcg Tablet PO DAILY [facility] Home Medications Medication Instructions Recorded Confirmed Last Taken Type aspirin [Aspir-81] 81 mg PO DAILY 09/01/20 09/01/20 Unknown History atorvastatin 80 mg PO DAILY 09/01/20 09/01/20 Unknown History cholecalciferol (vitamin D3) 50 mcg PO DAILY 09/01/20 09/01/20 Unknown History dulaglutide [Trulicity] 0.75 mg SUBCUT QWEEK 09/01/20 09/01/20 Unknown History famotidine 20 mg PO DAILY 09/01/20 09/01/20 Unknown History furosemide 80 mg PO BID 09/01/20 09/01/20 Unknown History glipizide 5 mg PO DAILY 09/01/20 09/01/20 Unknown History ipratropium-albuterol [Combivent 1 puff INHALATION QID 09/01/20 09/01/20 Unknown History Respimat] isosorbide mononitrate 30 mg PO DAILY 09/01/20 09/01/20 Unknown History metoprolol succinate 50 mg PO DAILY 09/01/20 09/01/20 Unknown History nitroglycerin 0.4 mg SUBLINGUAL Q5M PRN 09/01/20 09/01/20 Unknown History ondansetron HCl 8 mg PO BID PRN 09/01/20 09/01/20 Unknown History polyvinyl alcohol [Artificial 1 drp OPHTHALMIC (EYE) Q4H PRN 09/01/20 09/01/20 Unknown History Tears (polyvin alc)] ranolazine 500 mg PO BID 09/01/20 09/01/20 Unknown History tiotropium-olodaterol [Stiolto 2 puff INHALATION DAILY 09/01/20 09/01/20 Unknown History Respimat] Physical Exam Vital Signs and Narrative: Vital Signs: Last Vital Signs Temp 98.4 F 09/01/20 16:15 Pulse 77 09/01/20 16:15 Resp 24 H 09/01/20 16:15 BP 114/67 09/01/20 16:15 Pulse Ox 97 09/01/20 16:15 Body Mass Index 23.6 Appearing in no acute distress head is normocephalic atraumatic eyes pupils are PERRLA sclera is anicteric mouth throat mucous membranes are intact and moist neck is supple no lymphadenopathy, no JVD noted lung Rales heart regular rate rhythm, clear S1, S2 positive bowel sounds, abdomen is soft, nontender neuro patient is alert x3, no focal deficits Results Labs CBC and Chem 7: 09/01/20 11:44 09/01/20 11:44 Labs: Laboratory Results - last 24 hr 09/01/20 09/01/20 09/01/20 11:44 11:44 11:44 MCV 98.8 H MCH 32.5 MCHC 32.9 RDW 15.4 Plt Count 142 L MPV 11.1 Immature Gran % (Auto) 0.6 H Neut % (Auto) 63.5 Lymph % (Auto) 23.8 [place] % (Auto) 9.7 Eos % (Auto) 1.8 Baso % (Auto) 0.6 Lymph # (Auto) 1.2 [place] # (Auto) 0.5 Eos # (Auto) 0.1 Baso # (Auto) 0.0 Abs Immat Gran (auto) 0.03 Absolute Neuts (auto) 3.3 Absolute Nucleated RBC 0.000 Nucleated RBC % (auto) 0.0 PT 13.5 H INR 1.1 APTT 31.6 Anion Gap 12 Estim Creat Clear Calc 32.6 Estimated GFR 48 Random Glucose 122 H Calcium 9.4 Magnesium 2.6 Total Bilirubin 2.5 H Direct Bilirubin 0.8 H AST 22 ALT 45 H Alkaline Phosphatase 82 Troponin I High Sens B-Natriuretic Peptide Total Protein 7.0 Albumin 4.5 Lipase 18 COVID-19 (PETE) COVID-19 [employer] 09/01/20 09/01/20 11:44 11:44 MCV MCH MCHC RDW Plt Count MPV Immature Gran % (Auto) Neut % (Auto) Lymph % (Auto) [place] % (Auto) Eos % (Auto) Baso % (Auto) Lymph # (Auto) [place] # (Auto) Eos # (Auto) Baso # (Auto) Abs Immat Gran (auto) Absolute Neuts (auto) Absolute Nucleated RBC Nucleated RBC % (auto) PT INR APTT Anion Gap Estim Creat Clear Calc Estimated GFR Random Glucose Calcium Magnesium Total Bilirubin Direct Bilirubin AST ALT Alkaline Phosphatase Troponin I High Sens 48.9 H B-Natriuretic Peptide 4284 H Total Protein Albumin Lipase COVID-19 (PETE) Negative COVID-19 Clin Com See Note Imaging Radiologist's Impressions: Impressions Chest X-Ray 09/01/20 11:11 IMPRESSION: Enlarged cardiac silhouette and mild CHF. Assessment and Plan (1) CHF (congestive heart failure): Qualifiers: Heart failure type: other Qualified Code(s): I50.9 - Heart failure, unspecified Status: Acute 85-year-old man admitted with acute on chronic congestive heart failure. Acute chronic congestive heart failure. IV Lasix, Entresto. Cardiology consultation, telemetry monitoring. Follow intake and output, daily weights. Echocardiogram. CORA. Related to acute heart failure, diuresis. Coronary artery disease. Continue aspirin, statin, beta-carmelo. Diabetes mellitus. Sliding scale, ADA diet DVT prophylaxis with Heparin. Discussed with Dr. Dannielle Hartley code
[2020-09-01 18:09] LABS: Glucose, Whole Blood 207 mg/dL (60-115)
[2020-09-01] MEDS: Furosemide 100 MG/10 ML VIAL 60 MG IVPUSH (18:11)
[2020-09-01 20:44] LABS: Glucose, Whole Blood 226 mg/dL (60-115)
[2020-09-01] MEDS: Ranolazine 500 MG TAB.ER.12H PO (20:50)
[2020-09-01] MEDS: 0.9 % Sodium Chloride Flush 3 ML SYRINGE IVFLUSH (23:54)
[2020-09-02] VITALS (11 sets, daily range): BP systolic 91–118; BP diastolic 50–66; PULSE 68–83; RESP 16–20; TEMP 36.1–36.7; O2SAT 92–99; BMI 23.1
[2020-09-02 05:03] LABS: Hematocrit 37.1 % (42-52); Hemoglobin 12.2 g/dl (14.0-18.0); Imm Gran Abs Auto 0.02 X10*3/uL (0.00-0.03); Imm Gran Pct Auto 0.5 % (0.0-0.4); Lymphocytes Absolute Auto 0.7 X10*3/uL (1.2-4.9); Lymphocytes Percent Auto 16.1 % (20-40); MANUAL DIFF FLAG SCAN; Mean Corpuscular HGB Conc 32.9 g/dl (31.0-36.0); Mean Corpuscular Hemoglobin 32.4 pg (27.0-33.0); Mean Corpuscular Volume 98.4 fL (80-98); Mean Platelet Volume 11.4 fL (9.4-12.4); Monocytes Absolute Auto 0.1 X10*3/uL (0.1-1.2); Monocytes Percent Auto 1.9 % (2-11); Neutrophils Absolute Auto 3.5 X10*3/uL (2.0-8.3); Neutrophils Percent Auto 81.5 % (45-73); Platelet Count 132 X10*3/uL (160-400); Red Blood Count 3.77 X10*6/uL (4.60-5.80); Red Cell Distribution Width 15.4 % (11.0-16.0); SCAN SMEAR FLAG 1; White Blood Count 4.2 X10*3/uL (4.8-10.8)
[2020-09-02 05:27] LABS: Anion Gap 16 (12-20); Blood Urea Nitrogen 25 mg/dL (9-16); Calcium 8.4 mg/dL (8.4-10.2); Carbon Dioxide 24 mmol/L (22-29); Chloride 104 mmol/L (96-108); Creatinine Clr Calc Pharmacy 35.9; Estimated Glomerular Filt Rate 54; Glucose Random 210 mg/dL (60-115); Potassium 3.3 mmol/L (3.3-5.1); Sodium 141 mmol/L (135-145)
[2020-09-02 05:34] LABS: SLIDE REVIEW VERIFIED
[2020-09-02 07:40] LABS: Glucose, Whole Blood 196 mg/dL (60-115)
[2020-09-02] MEDS: Insulin Lispro 100 UNIT/ML 3 ML VIAL SUBCUT ×3 (08:06→21:18)
[2020-09-02] MEDS: Ranolazine 500 MG TAB.ER.12H PO ×2 (08:07→21:18)
[2020-09-02] MEDS: glipiZIDE 5 MG TABLET PO (08:07)
[2020-09-02] MEDS: Aspirin Enteric Coated 81 MG TABLET.DR PO (08:07)
[2020-09-02] MEDS: 0.9 % Sodium Chloride Flush 3 ML SYRINGE IVFLUSH ×2 (08:07→17:34)
[2020-09-02] MEDS: Atorvastatin Calcium 80 MG TABLET PO (08:07)
[2020-09-02] MEDS: Cholecalciferol (Vitamin D3) 25 MCG TABLET 50 MCG PO (08:07)
[2020-09-02] MEDS: Famotidine 20 MG TABLET PO (08:07)
[2020-09-02] MEDS: Metoprolol Succinate ER 50 MG TAB.ER.24H PO (08:16)
[2020-09-02] MEDS: Furosemide 100 MG/10 ML VIAL 60 MG IVPUSH ×2 (08:17→17:42)
--- NOTE | 2020-09-02 08:43 | P.CDIC_ITS ---
CDI Concurrent Query Service Date: 09/02/20 Documentation Clarification: Please clarify if you are treating a proba ble/suspected/likely or confirmed: Specifics: Acute diastolic and/or systolic CHF Acute on chronic diastolic and/or systolic CHF Chronic diastolic and/or systolic CHF Please specify if known Provider Response: Other Other Diagnosis: . PLEASE DO NOT DELETE/MODIFY EXISTING CONTENT Additional information is needed in order to code to the highest accuracy and appropriate Severity of Illness (SOI). Please clarify the information noted below in your progress notes and discharge summary. Risk Factors/Clinical Indicators/Treatments H&P: patient reports he has history of CHF BNP 4284 H IV Lasix RR 28 edema, retractions, tachypnea, dyspnea, orthopnea. Acute Congestive heart failure. Home med: Furosemide 80 mg po BID. CDS: Lucita Julien CCS, CDIS Contact Number: [phone] Please Review the information above and exercise your independent professional j udgment in responding to the query. If you concur, pleas document in the PROGRESS NOTES and DISCHARGE SUMMARY. If you do not agree with the query, p shabana document in the query above. THIS QUERY IS PART OF THE PERMANENT MEDICAL RECORD
--- NOTE | 2020-09-02 09:18 | PM.CNCAR ---
History of Present Illness History of Present Illness Date of Service: 09/02/20 Consult reason: congestive heart failure Chief complaint: CHF Narrative: This is a patient of Dr. Rushing. He was seen yesterday in the office and was thought to be in congestive heart failure. However, a new account number has been created and hence his previous information is in a different chart. He has a history of ischemic cardiomyopathy, prior CABG and mitral regurgitation. He has been apparently progressively short of breath. He also gets some chest pains at times for which he takes sublingual nitroglycerin. He was admitted with a diagnosis of acute on chronic heart failure and has been put on IV Lasix. He states that he is feeling better. Review of Systems Review of Systems: Yes all other systems are reviewed and are negative Cardiovascular: Cardiovascular: Reports as per HPI, Reports no additional cardiovascular complaints, Denies acrocyanosis, Denies cool extremities, Denies painful fingertips, Denies chest pain, Denies chest pain at rest, Denies diaphoresis, Denies syncope, Denies irregular heart rhythm, Denies claudication, Denies leg edema, Denies lightheadedness, Denies palpitations and Reports dyspnea Respiratory: Respiratory: Reports dyspnea Neurologic: Denies syncope Endocrine: Endocrine: Denies palpitations [facility] Past Medical History Medical History (Updated 09/02/20 @ 09:37 by Ramin Shearer MD) Atherosclerotic cardiovascular disease CAD (coronary artery disease) Congestive heart failure COPD (chronic obstructive pulmonary disease) Diabetes GERD (gastroesophageal reflux disease) Hyperlipidemia Ischemic cardiomyopathy LBBB (left bundle branch block) Non-rheumatic mitral regurgitation Surgical History Surgical History (Updated 09/01/20 @ 11:24 by Karishma Cuevas DO) Hx of CABG Social History Social History (Updated 09/01/20 @ 11:25 by Karishma Cuevas DO) Household Members: Family and Foster Family Housing: Apartment Do you presently have visiting nurse or other home services: Yes Smoking Status: Never smoker Second Hand Smoke Exposure: No Use of substances other than those prescribed or required for medical reasons: No Currently Displaying Signs/Symptoms of Drug Intoxication Withdrawal: No Any prior treatment program specific to substance use: No Have you been hit, kicked, punched, or otherwise hurt by someone within the past year? If so, by whom?: No Do you feel safe in your current relationship?: No Is there a partner from a previous relationship who is making you feel unsafe now?: No Are you made to feel afraid or neglected: No Advance Directives: No Advance Directives Information Provided: No Advance Directives on File: No Do you have thoughts of harming others: None Do you have a plan to hurt others: No Plan Recently lost weight without trying: No Meds Allergies Allergy/AdvReac Type Severity Reaction Status Date / Time No Known Allergies Allergy Unverified 03/20/20 19:50 [No Known Allergies*] Active Medications: Current Medications Generic Name Dose Route Start Last Admin Trade Name Freq PRN Reason Stop Dose Admin Acetaminophen 650 mg 09/01/20 17:07 Acetaminophen 325 Mg Tablet PO Q6H PRN Pain, Mild (Pain Scale 1-3) Artificial Tears 1 drop 09/01/20 17:07 Artificial Tears 15 Ml Drops EYE-BOTH Q4H PRN Dry Eye(S) Aspirin 81 mg 09/02/20 09:00 09/02/20 08:07 Aspirin Enteric Coated 81 Mg Tablet. PO 81 mg DAILY WINNIE Administration Atorvastatin Calcium 80 mg 09/02/20 09:00 09/02/20 08:07 Atorvastatin Calcium 80 Mg Tablet PO 80 mg DAILY WINNIE Administration Famotidine 20 mg 09/02/20 09:00 09/02/20 08:07 Famotidine 20 Mg Tablet PO 20 mg DAILY WINNIE Administration Furosemide 60 mg 09/01/20 18:00 09/02/20 08:17 Furosemide 100 Mg/10 Ml Vial IVPUSH 60 mg BID@0900,1800 [facility] Administration Protocol Insulin Human Lispro 0 unit 09/01/20 21:00 09/02/20 08:06 Insulin Lispro 100 Unit/Ml 3 Ml Vial SUBCUT 2 unit QIDACHS [facility] Administration Protocol Isosorbide Mononitrate 30 mg 09/02/20 09:00 09/02/20 08:12 Isosorbide Mononitrate 30 Mg Tab.Er.24h PO Not Given DAILY WINNIE Protocol Metoprolol Succinate 50 mg 09/02/20 09:00 09/02/20 08:16 Metoprolol Succinate Er 50 Mg Tab.Er.24h PO 50 mg DAILY WINNIE Administration Protocol Nitroglycerin 0.4 mg 09/01/20 17:07 Nitroglycerin 0.4 Mg Tab.Subl SUBLINGUAL Q5M PRN Chest Pain Ondansetron HCl 4 mg 09/01/20 17:07 Ondansetron Hcl 4 Mg/2 Ml Vial IVPUSH Q8H PRN Nausea and Vomiting Pharmacy Consult 1 each 09/01/20 11:11 Consult Rx Perform Med Rec MISCELLANE ONCE PRN Consult order Ranolazine 500 mg 09/01/20 21:00 09/02/20 08:07 Ranolazine 500 Mg Tab.Er.12h PO 500 mg BID WINNIE Administration Sacubitril/Valsartan 1 tab 09/01/20 21:00 09/02/20 08:11 Sacubitril/Valsartan 1 Tab Tablet PO Not Given BID [facility] Protocol Sodium Chloride 3 ml 09/02/20 00:00 09/02/20 08:07 0.9 % Sodium Chloride Flush 3 Ml Syringe IVFLUSH 3 ml QSHIFT [facility] Administration Vitamin D 50 mcg 09/02/20 09:00 09/02/20 08:07 Cholecalciferol (Vitamin D3) 25 Mcg Tablet PO 50 mcg DAILY WINNIE Administration Home Medications Medication Instructions Recorded Confirmed Last Taken Type aspirin [Aspir-81] 81 mg PO DAILY 09/01/20 09/01/20 Unknown History atorvastatin 80 mg PO DAILY 09/01/20 09/01/20 Unknown History cholecalciferol (vitamin D3) 50 mcg PO DAILY 09/01/20 09/01/20 Unknown History dulaglutide [Trulicity] 0.75 mg SUBCUT QWEEK 09/01/20 09/01/20 Unknown History famotidine 20 mg PO DAILY 09/01/20 09/01/20 Unknown History furosemide 80 mg PO BID 09/01/20 09/01/20 Unknown History glipizide 5 mg PO DAILY 09/01/20 09/01/20 Unknown History ipratropium-albuterol [Combivent 1 puff INHALATION QID 09/01/20 09/01/20 Unknown History Respimat] isosorbide mononitrate 30 mg PO DAILY 09/01/20 09/01/20 Unknown History metoprolol succinate 50 mg PO DAILY 09/01/20 09/01/20 Unknown History nitroglycerin 0.4 mg SUBLINGUAL Q5M PRN 09/01/20 09/01/20 Unknown History ondansetron HCl 8 mg PO BID PRN 09/01/20 09/01/20 Unknown History polyvinyl alcohol [Artificial 1 drp OPHTHALMIC (EYE) Q4H PRN 09/01/20 09/01/20 Unknown History Tears (polyvin alc)] ranolazine 500 mg PO BID 09/01/20 09/01/20 Unknown History tiotropium-olodaterol [Stiolto 2 puff INHALATION DAILY 09/01/20 09/01/20 Unknown History Respimat] Physical Exam Vital Signs: Vital Signs: Last Vital Signs Temp 97.6 F 09/02/20 07:32 Pulse 83 09/02/20 08:16 Resp 18 09/02/20 07:32 BP 97/55 L 09/02/20 08:16 Pulse Ox 95 09/02/20 07:32 Body Mass Index 23.1 Const: General: cooperative, comfortable and no acute distress Orientation/consciousness: patient oriented x3 HENMT: Other: Unremarkable Neck: Neck: Yes normal visual inspection Chest: Chest palpation & inspection: normal inspection of the chest Resp: Auscultation: clear to auscultation bilaterally, crackles and no wheezes Cardio: Jugular venous distension: no JVD Palpation: normal PMI Heart sounds: S1 normal heart sound present, S2 normal heart sound present, no gallops, Murmur heart sound present (apex) and no rubs GI: Palpation (GI): Soft to palpation Back/Spine/Pelvis: Other: unremarkable Skin: General skin exam: no rashes or lesions noted Neuro: General: patient oriented x3 Extrem: General: Yes no clubbing, cyanosis or edema Psych: Mental Status: mental status grossly normal Results Labs and Meds Result diagrams: 09/02/20 04:11 09/02/20 04:11 Lab results: Laboratory Results - last 24 hr 09/01/20 09/01/20 09/01/20 11:44 11:44 11:44 WBC 5.1 RBC 4.12 L Hgb 13.4 L Hct 40.7 L MCV 98.8 H MCH 32.5 MCHC 32.9 RDW 15.4 Plt Count 142 L MPV 11.1 Immature Gran % (Auto) 0.6 H Neut % (Auto) 63.5 Lymph % (Auto) 23.8 Ashe % (Auto) 9.7 Eos % (Auto) 1.8 Baso % (Auto) 0.6 Lymph # (Auto) 1.2 Ashe # (Auto) 0.5 Eos # (Auto) 0.1 Baso # (Auto) 0.0 Abs Immat Gran (auto) 0.03 Absolute Neuts (auto) 3.3 Absolute Nucleated RBC 0.000 Nucleated RBC % (auto) 0.0 Smear Tech's Comments PT 13.5 H INR 1.1 APTT 31.6 Sodium 143 Potassium 3.4 Chloride 104 Carbon Dioxide 30 H Anion Gap 12 BUN 27 H Creatinine 1.41 H Estim Creat Clear Calc 32.6 Estimated GFR 48 POC Glucose Random Glucose 122 H Calcium 9.4 Magnesium 2.6 Total Bilirubin 2.5 H Direct Bilirubin 0.8 H AST 22 ALT 45 H Alkaline Phosphatase 82 Troponin I High Sens B-Natriuretic Peptide Total Protein 7.0 Albumin 4.5 Lipase 18 COVID-19 (PETE) COVID-[employer] 09/01/20 09/01/20 09/01/20 11:44 11:44 18:05 WBC RBC Hgb Hct MCV MCH MCHC RDW Plt Count MPV Immature Gran % (Auto) Neut % (Auto) Lymph % (Auto) Ashe % (Auto) Eos % (Auto) Baso % (Auto) Lymph # (Auto) Ashe # (Auto) Eos # (Auto) Baso # (Auto) Abs Immat Gran (auto) Absolute Neuts (auto) Absolute Nucleated RBC Nucleated RBC % (auto) Smear Tech's Comments PT INR APTT Sodium Potassium Chloride Carbon Dioxide Anion Gap BUN Creatinine Estim Creat Clear Calc Estimated GFR POC Glucose 207 H Random Glucose Calcium Magnesium Total Bilirubin Direct Bilirubin AST ALT Alkaline Phosphatase Troponin I High Sens 48.9 H B-Natriuretic Peptide 4284 H Total Protein Albumin Lipase COVID-19 (PETE) Negative COVID-19 [employer] See Note 09/01/20 09/02/20 09/02/20 20:40 04:11 04:11 WBC 4.2 L RBC 3.77 L Hgb 12.2 L Hct 37.1 L MCV 98.4 H MCH 32.4 MCHC 32.9 RDW 15.4 Plt Count 132 L MPV 11.4 Immature Gran % (Auto) 0.5 H Neut % (Auto) 81.5 H Lymph % (Auto) 16.1 L Ashe % (Auto) 1.9 L Eos % (Auto) 0.0 Baso % (Auto) 0.0 Lymph # (Auto) 0.7 L Ashe # (Auto) 0.1 Eos # (Auto) 0.0 Baso # (Auto) 0.0 Abs Immat Gran (auto) 0.02 Absolute Neuts (auto) 3.5 Absolute Nucleated RBC 0.000 Nucleated RBC % (auto) 0.0 Smear Tech's Comments VERIFIED PT INR APTT Sodium 141 Potassium 3.3 Chloride 104 Carbon Dioxide 24 Anion Gap 16 BUN 25 H Creatinine 1.28 Estim Creat Clear Calc 35.9 Estimated GFR 54 POC Glucose 226 H Random Glucose 210 H D Calcium 8.4 D Magnesium Total Bilirubin Direct Bilirubin AST ALT Alkaline Phosphatase Troponin I High Sens B-Natriuretic Peptide Total Protein Albumin Lipase COVID-19 (PETE) [employer] 09/02/20 07:27 WBC RBC Hgb Hct MCV MCH MCHC RDW Plt Count MPV Immature Gran % (Auto) Neut % (Auto) Lymph % (Auto) Ashe % (Auto) Eos % (Auto) Baso % (Auto) Lymph # (Auto) Ashe # (Auto) Eos # (Auto) Baso # (Auto) Abs Immat Gran (auto) Absolute Neuts (auto) Absolute Nucleated RBC Nucleated RBC % (auto) Smear Tech's Comments PT INR APTT Sodium Potassium Chloride Carbon Dioxide Anion Gap BUN Creatinine Estim Creat Clear Calc Estimated GFR POC Glucose 196 H Random Glucose Calcium Magnesium Total Bilirubin Direct Bilirubin AST ALT Alkaline Phosphatase Troponin I High Sens B-Natriuretic Peptide Total Protein Albumin Lipase COVID-19 (PETE) [employer] ECG Attestation: I personally reviewed and interpreted this ECG as follows: Interpretation: Admission EKG with sinus rhythm at 75/Min with a left bundle-branch block pattern. Telemetry with very brief NSVT/PVCs. Imaging Radiologist's impression: Impressions Chest X-Ray 09/01/20 11:11 IMPRESSION: Enlarged cardiac silhouette and mild CHF. Assessment and Plan (1) Atherosclerotic cardiovascular disease: Status: Acute (2) Acute on chronic systolic (congestive) heart failure: Status: Acute (3) Ischemic cardiomyopathy: Status: Acute (4) Non-rheumatic mitral regurgitation: Status: Acute (5) LBBB (left bundle branch block): Status: Acute Cardiac BNP is markedly elevated at 4284 pg/mL. Chest x-ray is also suggestive of mild congestive heart failure. Continue with IV diuretics. We will get a repeat echocardiogram. He has known severe LV dysfunction and had refused cardiac resynchronization therapy in the past. Otherwise, once he is euvolemic, we can readdress this either as an in or outpatient. Continue beta-blockers, long-acting nitrates, Entresto without changes. Renal function is so far stable. Will follow up with you tomorrow. Procedures Date of Service Date of Service: 09/02/20
--- NOTE | 2020-09-02 09:49 | P.PNIM_ITS ---
Subjective Subjective Date of Service: 09/02/20 Interval History: sob improved, still present on exertion Cardiovascular Cardiovascular: Reports no additional cardiovascular complaints Gastrointestinal Gastrointestinal: Reports no additional gastrointestinal complaints Physical Exam Vital Signs: Vital Signs: Last Vital Signs Temp 97.6 F 09/02/20 07:32 Pulse 83 09/02/20 08:16 Resp 18 09/02/20 07:32 BP 97/55 L 09/02/20 08:16 Pulse Ox 95 09/02/20 07:32 Body Mass Index 23.1 General: AO X 3, no acute distress Resp: CTA bilateral CVS: S1,S2,RRR GI: soft, non tender, non distended Neuro: motor grossly intact Psych: appropriate affect Objective Data Current Medications Generic Name Dose Route Start Last Admin Trade Name Freq PRN Reason Stop Dose Admin Acetaminophen 650 mg 09/01/20 17:07 Acetaminophen 325 Mg Tablet PO Q6H PRN Pain, Mild (Pain Scale 1-3) Artificial Tears 1 drop 09/01/20 17:07 Artificial Tears 15 Ml Drops EYE-BOTH Q4H PRN Dry Eye(S) Aspirin 81 mg 09/02/20 09:00 09/02/20 08:07 Aspirin Enteric Coated 81 Mg Tablet.Dr PO 81 mg DAILY WINNIE Administration Atorvastatin Calcium 80 mg 09/02/20 09:00 09/02/20 08:07 Atorvastatin Calcium 80 Mg Tablet PO 80 mg DAILY WINNIE Administration Famotidine 20 mg 09/02/20 09:00 09/02/20 08:07 Famotidine 20 Mg Tablet PO 20 mg DAILY WINNIE Administration Furosemide 60 mg 09/01/20 18:00 09/02/20 08:17 Furosemide 100 Mg/10 Ml Vial IVPUSH 60 mg BID@0900,1800 [facility] Administration Protocol Insulin Human Lispro 0 unit 09/01/20 21:00 09/02/20 08:06 Insulin Lispro 100 Unit/Ml 3 Ml Vial SUBCUT 2 unit QIDACHS [facility] Administration Protocol Isosorbide Mononitrate 30 mg 09/02/20 09:00 09/02/20 08:12 Isosorbide Mononitrate 30 Mg Tab.Er.24h PO Not Given DAILY WINNIE Protocol Metoprolol Succinate 50 mg 09/02/20 09:00 09/02/20 08:16 Metoprolol Succinate Er 50 Mg Tab.Er.24h PO 50 mg DAILY WINNIE Administration Protocol Nitroglycerin 0.4 mg 09/01/20 17:07 Nitroglycerin 0.4 Mg Tab.Subl SUBLINGUAL Q5M PRN Chest Pain Ondansetron HCl 4 mg 09/01/20 17:07 Ondansetron Hcl 4 Mg/2 Ml Vial IVPUSH Q8H PRN Nausea and Vomiting Pharmacy Consult 1 each 09/01/20 11:11 Consult Rx Perform Med Rec MISCELLANE ONCE PRN Consult order Ranolazine 500 mg 09/01/20 21:00 09/02/20 08:07 Ranolazine 500 Mg Tab.Er.12h PO 500 mg BID WINNIE Administration Sacubitril/Valsartan 1 tab 09/01/20 21:00 09/02/20 08:11 Sacubitril/Valsartan 1 Tab Tablet PO Not Given BID WINNEI Protocol Sodium Chloride 3 ml 09/02/20 00:00 09/02/20 08:07 0.9 % Sodium Chloride Flush 3 Ml Syringe IVFLUSH 3 ml QSHIFT WINNIE Administration Vitamin D 50 mcg 09/02/20 09:00 09/02/20 08:07 Cholecalciferol (Vitamin D3) 25 Mcg Tablet PO 50 mcg DAILY WINNIE Administration Labs CBC & Chem 7: 09/02/20 04:11 09/02/20 04:11 Assessment and Plan (1) CHF (congestive heart failure): Status: Acute Assessment and Plan: 85M presented with sob acute on chronic systolic chf continue lasix follow up echo, entresto, beta carmelo cardio following CORA cardiorenal improving with diuresis CAD asa, statin ,beta blcoker Diabetes mellitus. Sliding scale, ADA diet
--- NOTE | 2020-09-02 11:00 | CA_ITS ---
Transthoracic Echocardiogram Patient (Last, First, Middle): Nando Covington, Gender: Male Date of : 1935 Age: 85 Procedure Date: 09/02/2020 Procedure Type: Transthoracic Echocardiogram [place] [facility] [place]: 162.56 cm Weight: 60.78 kg BSA: 1.65 m2 Heart Rate: bpm BP: 97 / 55 mmHg Cord Maker: Referring MD: Ramin Shearer MD Symptoms: CHF Study Quality: Fair ECG Rhythm: Sinus Conclusions: - The left ventricular systolic function is severely decreased. The visually estimated ejection fraction is between 15-20%. - Evidence suggests grade III (severe) diastolic dysfunction. - The apex, basal inferior, and basal inferoseptal segments are akinetic. - There is mildly decreased right ventricular systolic function. - The left atrium is severely dilated. - There is severe mitral valve regurgitation. - There is moderate to severe tricuspid valve regurgitation. - Moderate to severe pulmonary hypertension is present. Findings Left Ventricle Moderately increased left ventricular cavity size. There is mildly increased left ventricular wall thickness. The left ventricular systolic function is severely decreased. The visually estimated ejection fraction is between 15 20%. There is severe global hypokinesis. E/E prime ratio is >15, consistent with elevated filling pressures. Evidence suggests grade III (severe) diastolic dysfunction. Wall Motion Rest Echo Findings The apex, basal inferior, and basal inferoseptal segments are akinetic. Right Ventricle Mildly increased right ventricular cavity size. There is mildly decreased right ventricular systolic function. Atria The left atrium is severely dilated. The right atrium is mildly dilated. Aortic Valve There is a normal trileaflet aortic valve. There is no aortic valve stenosis. There is mild aortic valve regurgitation. Mitral Valve The posterior mitral leaflet has restricted mobility. There is mild mitral annular calcification. There is severe mitral valve regurgitation. There is no mitral valve stenosis. Pulmonic Valve The pulmonic valve was not well visualized. There is trace pulmonic valve regurgitation. Tricuspid Valve Normal tricuspid valve structure. There is moderate to severe tricuspid valve regurgitation. The right ventricular systolic pressure is 61 mmHg. Moderate to severe pulmonary hypertension is present. Great Vessels The aortic annulus, sinuses of valsalva, and asc aorta are normal in size. Venous The inferior vena cava is dilated and collapses less than 50% with inspiration. Pericardium/Pleural There is no evidence of pericardial effusion. Prior Study Comparison Changes noted compared to prior study dated: 05/28/2020. (prior study with different MRN) RVSP higher. Measurements 2D Linear Measurements IVSd: 1.25 0.6-0.9/0.6-1.0 cm LVIDd: 6.29 3.9-5.3/4.2-5.9 cm LVIDd Index: 3.81 2.4-3.2/2.2-3.1 cm/m2 LVIDs: 5.66 2.0-3.6 cm LVPWd: 1.23 0.7-1.1 cm Ao Root: 2.70 2.1-3.5 cm LA Diam: 5.70 2.7-3.8/3.0-4.0 cm LAIDs Index: 3.45 1.5-2.3 cm/m2 LV Mass: 442.69 67-162/88-224 g LV Mass Index: 268.30 43-95/49-115 g/m2 LVOT Diam: 2.00 3.0+(-)1.3 cm 2D Systolic Function EF 4C: 25.40 >55% EF 2C: 26.80 >55% EF BiP: 26.20 >55% Mitral Valve MV Pk E: 1.29 MV Decel Time: 130.00 E'Lateral: 8.99 E'Medial: 3.58 E/E' Med: 36.00 E/E' Lat: 14.30 PHT: 38.00 MVA PHT: 5.79 Decel [facility]: 9.87 MR Vol - PW Dopp: 33.06 MR VTI: 1.14 MR ERO: 29.00 MR Alias Kleber: 0.37 MR RAD: 0.70 Aortic Valve AoV Pk Kleber: 1.18 AoV Mn Kleber: 0.75 AoV VTI: 0.23 AoV Pk Grad: 6.00 Aov Mn Grad: 3.00 TAMIR Cont.VTI: 1.55 AI Pk Kleber: 2.48 AI [facility]lor: 3.21 LVOT LVOT Pk Kleber: 0.63 LVOT Mn Kleber: 0.36 LVOT VTI: 0.11 LVOT Pk Grad: 2.00 LVOT Mn Grad: 1.00 LVOT Diam: 2.00 LVOT Area: 3.14 Diastolic Function MV Pk E: 1.29 E'Medial: 3.58 E/E' Med: 36.00 E' Laterial: 8.99 E/E' Lat: 14.30 Tricuspid Valve TR Pk Kleber: 3.40 TR Pk Grad: 46.00 RA Press: 15.00 RVSP: 61.00 Great Vessels Aorta Ao Root-2D: 2.70 2.0-3.7 cm Ao Asc: 3.20 2.1-3.4 cm Pulmonary Valve PV Pk Kleber: 0.80 Peak PV Grad: 3.00 Updated in Other Vendor System with Status of Final Ramin Shearer MD electronically signed on 09/02/2020 4:17:39 PM with status of Final
[2020-09-02 11:24] LABS: Glucose, Whole Blood 198 mg/dL (60-115)
[2020-09-02] MEDS: bisacodyL 5 MG TABLET.DR 10 MG PO (11:26)
[2020-09-02 11:33] LABS: Glucose, Whole Blood 201 mg/dL (60-115)
[2020-09-02 15:58] LABS: Glucose, Whole Blood 124 mg/dL (60-115)
--- NOTE | 2020-09-02 18:33 | PC.NURSE ---
MD ROUNDED ON PT THIS MORNING AND WANTED TO REMOVE OXYGEN 3 LITER NC AND ASSESS SATS ON ROOM AIR. OXGYEN SATS REMAINED 92% OR GREATER ON RA BUT DISPLAYED SOME DYSPNEA WITH ACTIVITY. PT ALSO NOTIFIED MD OF URINARY RETENTION HX SO POST VOID RESIDUALS CHECKED. PT ADM IV LASIX IN AM AND VOIDED ON 200 ML- PVR GREATER THAN 600 MLS- MD AWARE AND ORDERS OBTAINED FOR F/C INSERTION. F/C INSERTED WITH SOME MINOR DIFFICULTY BUT NO HEMATURIA NOTED POST INSERTION. WILL CONTINUE TO MONITOR
[2020-09-02 21:09] LABS: Glucose, Whole Blood 232 mg/dL (60-115)
[2020-09-03] MEDS: 0.9 % Sodium Chloride Flush 3 ML SYRINGE IVFLUSH ×4 (00:10→23:44)
[2020-09-03 03:18] VITALS: BP 96/62; PULSE 65; RESP 18; TEMP 36.3; O2SAT 94
[2020-09-03] MEDS: Acetaminophen 325 MG TABLET 650 MG PO (04:06)
[2020-09-03 04:58] LABS: MANUAL DIFF FLAG NO
[2020-09-03 05:05] LABS: Basophils Percent Auto 0.2 % (0-2); Eosinophils Percent Auto 0.1 % (0-4); Hematocrit 36.7 % (42-52); Hemoglobin 12.6 g/dl (14.0-18.0); Imm Gran Abs Auto 0.04 X10*3/uL (0.00-0.03); Imm Gran Pct Auto 0.5 % (0.0-0.4); Lymphocytes Absolute Auto 1.3 X10*3/uL (1.2-4.9); Lymphocytes Percent Auto 16.6 % (20-40); Mean Corpuscular HGB Conc 34.3 g/dl (31.0-36.0); Mean Corpuscular Hemoglobin 33.2 pg (27.0-33.0); Mean Corpuscular Volume 96.6 fL (80-98); Mean Platelet Volume 11.6 fL (9.4-12.4); Monocytes Absolute Auto 0.9 X10*3/uL (0.1-1.2); Monocytes Percent Auto 11.5 % (2-11); Neutrophils Absolute Auto 5.7 X10*3/uL (2.0-8.3); Neutrophils Percent Auto 71.1 % (45-73); Platelet Count 144 X10*3/uL (160-400); Red Cell Distribution Width 15.6 % (11.0-16.0); White Blood Count 8.1 X10*3/uL (4.8-10.8)
[2020-09-03 05:41] VITALS: BMI 23.3
[2020-09-03 05:43] LABS: Anion Gap 14 (12-20); Blood Urea Nitrogen 39 mg/dL (9-16); Calcium 8.4 mg/dL (8.4-10.2); Carbon Dioxide 26 mmol/L (22-29); Chloride 104 mmol/L (96-108); Creatinine Clr Calc Pharmacy 33.1; Estimated Glomerular Filt Rate 49; Glucose Fasting 78 mg/dL (60-99); Magnesium 2.5 mg/dL (1.6-2.6); Potassium 3.6 mmol/L (3.3-5.1); Sodium 140 mmol/L (135-145)
[2020-09-03 07:20] LABS: Glucose, Whole Blood 73 mg/dL (60-115)
[2020-09-03 07:49] VITALS: BP 109/66; PULSE 73; RESP 20; TEMP 36.5; O2SAT 96
[2020-09-03] MEDS: Furosemide 100 MG/10 ML VIAL 60 MG IVPUSH (08:33)
[2020-09-03] MEDS: Cholecalciferol (Vitamin D3) 25 MCG TABLET 50 MCG PO (08:36)
[2020-09-03] MEDS: Aspirin Enteric Coated 81 MG TABLET.DR PO (08:37)
[2020-09-03] MEDS: Ranolazine 500 MG TAB.ER.12H PO ×2 (08:37→20:36)
[2020-09-03] MEDS: Atorvastatin Calcium 80 MG TABLET PO (08:37)
[2020-09-03] MEDS: Famotidine 20 MG TABLET PO (08:37)
[2020-09-03] MEDS: ondansetron HCL 4 MG/2 ML VIAL IVPUSH (08:42)
[2020-09-03] MEDS: Metoprolol Succinate ER 50 MG TAB.ER.24H PO (08:47)
--- NOTE | 2020-09-03 09:58 | HO.PM.IMPN ---
Subjective Subjective Date of Service: 09/03/20 Interval History: Short of breath Cardiovascular Cardiovascular: Reports no additional cardiovascular complaints Gastrointestinal Gastrointestinal: Reports no additional gastrointestinal complaints Physical Exam Vital Signs: Vital Signs: Last Vital Signs Temp 97.7 F 09/03/20 07:49 Pulse 73 09/03/20 07:49 Resp 20 09/03/20 07:49 BP 109/66 09/03/20 07:49 Pulse Ox 96 09/03/20 07:49 Body Mass Index 23.3 General: AO X 3, sob Resp: crackles CVS: S1,S2,RRR GI: soft, non tender, non distended Neuro: motor grossly intact Psych: appropriate affect Objective Data Current Medications Generic Name Dose Route Start Last Admin Trade Name Freq PRN Reason Stop Dose Admin Acetaminophen 650 mg 09/01/20 17:07 09/03/20 04:06 Acetaminophen 325 Mg Tablet PO 650 mg Q6H PRN Administration Pain, Mild (Pain Scale 1-3) Artificial Tears 1 drop 09/01/20 17:07 Artificial Tears 15 Ml Drops EYE-BOTH Q4H PRN Dry Eye(S) Aspirin 81 mg 09/02/20 09:00 09/03/20 08:37 Aspirin Enteric Coated 81 Mg Tablet. PO 81 mg DAILY WINNIE Administration Atorvastatin Calcium 80 mg 09/02/20 09:00 09/03/20 08:37 Atorvastatin Calcium 80 Mg Tablet PO 80 mg DAILY WINNIE Administration Famotidine 20 mg 09/02/20 09:00 09/03/20 08:37 Famotidine 20 Mg Tablet PO 20 mg DAILY WINNIE Administration Furosemide 80 mg 09/03/20 18:00 Furosemide 100 Mg/10 Ml Vial IVPUSH BID@0900,1800 [facility] Protocol Insulin Human Lispro 0 unit 09/01/20 21:00 09/03/20 07:37 Insulin Lispro 100 Unit/Ml 3 Ml Vial SUBCUT Not Given QIDACHS [facility] Protocol Isosorbide Mononitrate 30 mg 09/02/20 09:00 09/03/20 08:46 Isosorbide Mononitrate 30 Mg Tab.Er.24h PO Not Given DAILY [facility] Protocol Metoprolol Succinate 50 mg 09/02/20 09:00 09/03/20 08:47 Metoprolol Succinate Er 50 Mg Tab.Er.24h PO 50 mg DAILY WINNIE Administration Protocol Nitroglycerin 0.4 mg 09/01/20 17:07 Nitroglycerin 0.4 Mg Tab.Subl SUBLINGUAL Q5M PRN Chest Pain Ondansetron HCl 4 mg 09/01/20 17:07 09/03/20 08:42 Ondansetron Hcl 4 Mg/2 Ml Vial IVPUSH 4 mg Q8H PRN Administration Nausea and Vomiting Pharmacy Consult 1 each 09/01/20 11:11 Consult Rx Perform Med Rec MISCELLANE ONCE PRN Consult order Ranolazine 500 mg 09/01/20 21:00 09/03/20 08:37 Ranolazine 500 Mg Tab.Er.12h PO 500 mg BID WINNIE Administration Sacubitril/Valsartan 1 tab 09/01/20 21:00 09/03/20 08:46 Sacubitril/Valsartan 1 Tab Tablet PO Not Given BID [facility] Protocol Sodium Chloride 3 ml 09/02/20 00:00 09/03/20 07:37 0.9 % Sodium Chloride Flush 3 Ml Syringe IVFLUSH 3 ml QSHIFT WINNIE Administration Vitamin D 50 mcg 09/02/20 09:00 09/03/20 08:36 Cholecalciferol (Vitamin D3) 25 Mcg Tablet PO 50 mcg DAILY WINNIE Administration Labs CBC & Chem 7: 09/03/20 04:02 09/03/20 04:02 Microbiology Microbiology Results: Microbiology 09/01/20 12:22 Blood - Venous Blood Culture - Preliminary No growth after 24 hours. 09/01/20 11:45 Blood - Venous Blood Culture - Preliminary No growth after 24 hours. Assessment and Plan (1) CHF (congestive heart failure): Status: Acute Assessment and Plan: 85M presented with sob acute on chronic systolic and diastolic chf with mod-severe pulm htn continue lasix will increase to 80mg bid entresto, beta carmelo cardio following echo - ef 15-20%, g3dd, mod-severe pulm htn CORA cardiorenal improvedwith diuresis, monitor closely urinary retention reyes placed, will keep while diuresing CAD asa, statin ,beta blcoker Diabetes mellitus. Sliding scale, ADA diet
[2020-09-03 11:00] VITALS: BP 112/66; PULSE 72; RESP 18; TEMP 37.1; O2SAT 95
[2020-09-03 11:03] LABS: Glucose, Whole Blood 107 mg/dL (60-115)
--- NOTE | 2020-09-03 11:36 | P.PNCA_ITS ---
Subjective Subjective Date of Service: 09/03/20 Interval history: Patient states that his breathing is better. No anginal-type complaints. No significant leg swelling. Review of Systems Review of Systems Yes all other systems are reviewed and are negative Cardiovascular: Reports as per HPI, Reports no additional cardiovascular complaints, Denies acrocyanosis, Denies cool extremities, Denies painful fingertips, Denies chest pain, Denies chest pain at rest, Denies diaphoresis, Denies syncope, Denies irregular heart rhythm, Denies claudication, Denies leg edema, Denies lightheadedness, Denies palpitations and Reports dyspnea Respiratory: Reports dyspnea Denies syncope Endocrine: Denies palpitations Physical Exam Vital Signs: Last Vital Signs Temp 98.8 F 09/03/20 11:00 Pulse 72 09/03/20 11:00 Resp 18 09/03/20 11:00 BP 112/66 09/03/20 11:00 Pulse Ox 95 09/03/20 11:00 Body Mass Index 23.3 Const General: cooperative, comfortable and no acute distress Orientation/consciousness: patient oriented x3 HENWY Other: Unremarkable Neck Neck: Yes normal visual inspection Chest Chest palpation & inspection: normal inspection of the chest Resp Auscultation: clear to auscultation bilaterally, crackles and no wheezes Cardio Jugular venous distension: no JVD Palpation: normal PMI Heart sounds: S1 normal heart sound present, S2 normal heart sound present, no gallops, Murmur heart sound present (apex) and no rubs GI Palpation (GI): Soft to palpation Back/Spine/Pelvis Other: unremarkable Skin General skin exam: no rashes or lesions noted Neuro General: patient oriented x3 Extrem General: Yes no clubbing, cyanosis or edema Psych Mental Status: mental status grossly normal Results Labs and Meds Result diagrams: 09/03/20 04:02 09/03/20 04:02 Lab results: Laboratory Results - last 24 hr 09/02/20 09/02/20 09/03/20 15:55 21:02 04:02 WBC 8.1 RBC 3.80 L Hgb 12.6 L Hct 36.7 L MCV 96.6 MCH 33.2 H MCHC 34.3 RDW 15.6 Plt Count 144 L MPV 11.6 Immature Gran % (Auto) 0.5 H Neut % (Auto) 71.1 Lymph % (Auto) 16.6 L [place] % (Auto) 11.5 H Eos % (Auto) 0.1 Baso % (Auto) 0.2 Lymph # (Auto) 1.3 [place] # (Auto) 0.9 Eos # (Auto) 0.0 Baso # (Auto) 0.0 Abs Immat Gran (auto) 0.04 H Absolute Neuts (auto) 5.7 Absolute Nucleated RBC 0.000 Nucleated RBC % (auto) 0.0 Sodium Potassium Chloride Carbon Dioxide Anion Gap BUN Creatinine Estim Creat Clear Calc Estimated GFR POC Glucose 124 H 232 H Fasting Glucose Calcium Magnesium 09/03/20 09/03/20 09/03/20 04:02 07:16 10:57 WBC RBC Hgb Hct MCV MCH MCHC RDW Plt Count MPV Immature Gran % (Auto) Neut % (Auto) Lymph % (Auto) [place] % (Auto) Eos % (Auto) Baso % (Auto) Lymph # (Auto) [place] # (Auto) Eos # (Auto) Baso # (Auto) Abs Immat Gran (auto) Absolute Neuts (auto) Absolute Nucleated RBC Nucleated RBC % (auto) Sodium 140 Potassium 3.6 Chloride 104 Carbon Dioxide 26 Anion Gap 14 BUN 39 H D Creatinine 1.39 Estim Creat Clear Calc 33.1 Estimated GFR 49 POC Glucose 73 107 Fasting Glucose 78 Calcium 8.4 Magnesium 2.5 Imaging Radiologist's impression: Impressions Chest X-Ray 09/01/20 11:11 IMPRESSION: Enlarged cardiac silhouette and mild CHF. Progress Note: A&P Assessment and plan (1) Atherosclerotic cardiovascular disease: Status: Acute (2) Acute on chronic systolic (congestive) heart failure: Status: Acute (3) Ischemic cardiomyopathy: Status: Acute (4) Non-rheumatic mitral regurgitation: Status: Acute (5) LBBB (left bundle branch block): Status: Acute Assessment and Plan: Cardiac BNP is markedly elevated at 4284 pg/mL. Chest x-ray is also suggestive of mild congestive heart failure. Continue with IV diuretics. Not sure if the input output is accurate but he is only negative 170 mL. We can uptitrate diuretics and closely monitor kidney function. Continue beta-blockers, long- acting nitrates, Entresto without changes. Renal function is so far stable. He was previously refusing any ICD but when I spoke to him today, he is more willing. Will follow up with you tomorrow. Echo- Conclusions: - The left ventricular systolic function is severely decreased. The visually estimated ejection fraction is between 15-20%. - Evidence suggests grade III (severe) diastolic dysfunction. - The apex, basal inferior, and basal inferoseptal segments are akinetic. - There is mildly decreased right ventricular systolic function. - The left atrium is severely dilated. - There is severe mitral valve regurgitation. - There is moderate to severe tricuspid valve regurgitation. - Moderate to severe pulmonary hypertension is present. Fall Risk Details Current Medications: Current Medications Generic Name Dose Route Start Last Admin Trade Name Freq PRN Reason Stop Dose Admin Acetaminophen 650 mg 09/01/20 17:07 09/03/20 04:06 Acetaminophen 325 Mg Tablet PO 650 mg Q6H PRN Administration Pain, Mild (Pain Scale 1-3) Artificial Tears 1 drop 09/01/20 17:07 Artificial Tears 15 Ml Drops EYE-BOTH Q4H PRN Dry Eye(S) Aspirin 81 mg 09/02/20 09:00 09/03/20 08:37 Aspirin Enteric Coated 81 Mg Tablet. PO 81 mg DAILY WINNIE Administration Atorvastatin Calcium 80 mg 09/02/20 09:00 09/03/20 08:37 Atorvastatin Calcium 80 Mg Tablet PO 80 mg DAILY WINNIE Administration Famotidine 20 mg 09/02/20 09:00 09/03/20 08:37 Famotidine 20 Mg Tablet PO 20 mg DAILY WINNIE Administration Furosemide 80 mg 09/03/20 18:00 Furosemide 100 Mg/10 Ml Vial IVPUSH BID@0900,1800 [facility] Protocol Insulin Human Lispro 0 unit 09/01/20 21:00 09/03/20 07:37 Insulin Lispro 100 Unit/Ml 3 Ml Vial SUBCUT Not Given QIDACHS [facility] Protocol Isosorbide Mononitrate 30 mg 09/02/20 09:00 09/03/20 08:46 Isosorbide Mononitrate 30 Mg Tab.Er.24h PO Not Given DAILY [facility] Protocol Metoprolol Succinate 50 mg 09/02/20 09:00 09/03/20 08:47 Metoprolol Succinate Er 50 Mg Tab.Er.24h PO 50 mg DAILY WINNIE Administration Protocol Nitroglycerin 0.4 mg 09/01/20 17:07 Nitroglycerin 0.4 Mg Tab.Subl SUBLINGUAL Q5M PRN Chest Pain Ondansetron HCl 4 mg 09/01/20 17:07 09/03/20 08:42 Ondansetron Hcl 4 Mg/2 Ml Vial IVPUSH 4 mg Q8H PRN Administration Nausea and Vomiting Pharmacy Consult 1 each 09/01/20 11:11 Consult Rx Perform Med Rec MISCELLANE ONCE PRN Consult order Ranolazine 500 mg 09/01/20 21:00 09/03/20 08:37 Ranolazine 500 Mg Tab.Er.12h PO 500 mg BID WINNIE Administration Sacubitril/Valsartan 1 tab 09/01/20 21:00 09/03/20 08:46 Sacubitril/Valsartan 1 Tab Tablet PO Not Given BID WINNIE Protocol Sodium Chloride 3 ml 09/02/20 00:00 09/03/20 07:37 0.9 % Sodium Chloride Flush 3 Ml Syringe IVFLUSH 3 ml QSHIFT WINNIE Administration Vitamin D 50 mcg 09/02/20 09:00 09/03/20 08:36 Cholecalciferol (Vitamin D3) 25 Mcg Tablet PO 50 mcg DAILY WINNIE Administration Time Spent With Patient Time: Total time spent is greater than 50% in coordination of care (as documented) at patient's floor/unit and/or counseling patient: Time with patient: less than 15 minutes Procedures Date of Service Date of Service: 09/03/20
--- NOTE | 2020-09-03 14:04 | MHC.CM.PN ---
DP Male 85 dx chf. The DP is home with resumption of services. Services thru [facility] will resume. [facility] will resume homecare services. CM will follow..
[2020-09-03 15:06] VITALS: BP 101/59; PULSE 66; RESP 18; TEMP 36.6; O2SAT 95
[2020-09-03 16:04] LABS: Glucose, Whole Blood 112 mg/dL (60-115)
[2020-09-03] MEDS: Furosemide 100 MG/10 ML VIAL 80 MG IVPUSH (18:19)
[2020-09-03 19:16] VITALS: BP 112/59; PULSE 72; RESP 22; TEMP 36.4; O2SAT 96
[2020-09-03 20:14] LABS: Glucose, Whole Blood 174 mg/dL (60-115)
[2020-09-03] MEDS: Insulin Lispro 100 UNIT/ML 3 ML VIAL SUBCUT (20:36)
[2020-09-03] MEDS: Sacubitril/Valsartan 24/26 1 TAB TABLET PO (20:36)
[2020-09-04] VITALS: BP 96/58; PULSE 66; RESP 20; TEMP 36.9; O2SAT 90
[2020-09-04 03:55] VITALS: BP 96/59; PULSE 67; RESP 16; TEMP 36.5; O2SAT 93
[2020-09-04 05:51] LABS: Anion Gap 17 (12-20); Blood Urea Nitrogen 38 mg/dL (9-16); Calcium 8.2 mg/dL (8.4-10.2); Carbon Dioxide 23 mmol/L (22-29); Chloride 102 mmol/L (96-108); Creatinine Clr Calc Pharmacy 37.7; Estimated Glomerular Filt Rate 57; Glucose Fasting 86 mg/dL (60-99); Magnesium 2.6 mg/dL (1.6-2.6); Potassium 3.7 mmol/L (3.3-5.1); Sodium 138 mmol/L (135-145)
[2020-09-04 07:01] VITALS: BP 108/62; PULSE 82; RESP 18; TEMP 36.6; O2SAT 94
[2020-09-04 07:16] LABS: Glucose, Whole Blood 87 mg/dL (60-115)
[2020-09-04] MEDS: 0.9 % Sodium Chloride Flush 3 ML SYRINGE IVFLUSH ×2 (09:09→16:03)
[2020-09-04] MEDS: Sacubitril/Valsartan 24/26 1 TAB TABLET PO ×2 (09:09→20:21)
[2020-09-04] MEDS: Famotidine 20 MG TABLET PO (09:09)
[2020-09-04] MEDS: Aspirin Enteric Coated 81 MG TABLET.DR PO (09:09)
[2020-09-04] MEDS: Atorvastatin Calcium 80 MG TABLET PO (09:09)
[2020-09-04] MEDS: Metoprolol Succinate ER 50 MG TAB.ER.24H PO (09:09)
[2020-09-04] MEDS: Cholecalciferol (Vitamin D3) 25 MCG TABLET 50 MCG PO (09:09)
[2020-09-04] MEDS: Ranolazine 500 MG TAB.ER.12H PO ×2 (09:09→20:21)
[2020-09-04] MEDS: Isosorbide Mononitrate 30 MG TAB.ER.24H PO (09:09)
[2020-09-04] MEDS: Furosemide 100 MG/10 ML VIAL 80 MG IVPUSH ×2 (09:46→19:00)
--- NOTE | 2020-09-04 10:40 | PM.PNCARD ---
Subjective Subjective Date of Service: 09/04/20 Interval history: He states that he feels okay. However, it appears that he still gets short of breath with activity. Review of Systems Review of Systems Yes all other systems are reviewed and are negative Cardiovascular: Reports as per HPI, Reports no additional cardiovascular complaints, Denies acrocyanosis, Denies cool extremities, Denies painful fingertips, Denies chest pain, Denies chest pain at rest, Denies diaphoresis, Denies syncope, Denies irregular heart rhythm, Denies claudication, Denies leg edema, Denies lightheadedness, Denies palpitations and Reports dyspnea Respiratory: Reports dyspnea Denies syncope Endocrine: Denies palpitations Physical Exam Vital Signs: Last Vital Signs Temp 98 F 09/04/20 07:01 Pulse 82 09/04/20 07:01 Resp 18 09/04/20 07:01 BP 108/62 09/04/20 07:01 Pulse Ox 94 09/04/20 07:01 Body Mass Index 23.3 Const General: cooperative, comfortable and no acute distress Orientation/consciousness: patient oriented x3 HENCT Other: Unremarkable Neck Neck: Yes normal visual inspection Chest Chest palpation & inspection: normal inspection of the chest Resp Auscultation: clear to auscultation bilaterally, crackles and no wheezes Cardio Jugular venous distension: no JVD Palpation: normal PMI Heart sounds: S1 normal heart sound present, S2 normal heart sound present, no gallops, Murmur heart sound present (apex) and no rubs GI Palpation (GI): Soft to palpation Back/Spine/Pelvis Other: unremarkable Skin General skin exam: no rashes or lesions noted Neuro General: patient oriented x3 Extrem General: Yes no clubbing, cyanosis or edema Psych Mental Status: mental status grossly normal Results Labs and Meds Result diagrams: 09/03/20 04:02 09/04/20 04:06 Lab results: Laboratory Results - last 24 hr 09/03/20 09/03/20 09/03/20 10:57 15:59 20:08 Sodium Potassium Chloride Carbon Dioxide Anion Gap BUN Creatinine Estim Creat Clear Calc Estimated GFR POC Glucose 107 112 174 H Fasting Glucose Calcium Magnesium 09/04/20 09/04/20 04:06 07:01 Sodium 138 Potassium 3.7 Chloride 102 Carbon Dioxide 23 Anion Gap 17 BUN 38 H Creatinine 1.22 Estim Creat Clear Calc 37.7 Estimated GFR 57 POC Glucose 87 Fasting Glucose 86 Calcium 8.2 L Magnesium 2.6 Progress Note: A&P Assessment and plan (1) Atherosclerotic cardiovascular disease: Status: Acute (2) Acute on chronic systolic (congestive) heart failure: Status: Acute (3) Ischemic cardiomyopathy: Status: Acute (4) Non-rheumatic mitral regurgitation: Status: Acute (5) LBBB (left bundle branch block): Status: Acute Assessment and Plan: Cardiac BNP is markedly elevated at 4284 pg/mL. Chest x-ray is also suggestive of mild congestive heart failure. Continue with IV diuretics. Not sure if the input output is accurate but he is negative -1065 mL. We can closely monitor kidney function. Continue beta-blockers, long-acting nitrates, Entresto without changes. Renal function is so far stable. He was previously refusing any ICD but when I spoke to him, he is more willing. Will follow up with you tomorrow. Echo- Conclusions: - The left ventricular systolic function is severely decreased. The visually estimated ejection fraction is between 15-20%. - Evidence suggests grade III (severe) diastolic dysfunction. - The apex, basal inferior, and basal inferoseptal segments are akinetic. - There is mildly decreased right ventricular systolic function. - The left atrium is severely dilated. - There is severe mitral valve regurgitation. - There is moderate to severe tricuspid valve regurgitation. - Moderate to severe pulmonary hypertension is present. Fall Risk Details Current Medications: Current Medications Generic Name Dose Route Start Last Admin Trade Name Freq PRN Reason Stop Dose Admin Acetaminophen 650 mg 09/01/20 17:07 09/03/20 04:06 Acetaminophen 325 Mg Tablet PO 650 mg Q6H PRN Administration Pain, Mild (Pain Scale 1-3) Artificial Tears 1 drop 09/01/20 17:07 Artificial Tears 15 Ml Drops EYE-BOTH Q4H PRN Dry Eye(S) Aspirin 81 mg 09/02/20 09:00 09/04/20 09:09 Aspirin Enteric Coated 81 Mg Tablet. PO 81 mg DAILY WINNIE Administration Atorvastatin Calcium 80 mg 09/02/20 09:00 09/04/20 09:09 Atorvastatin Calcium 80 Mg Tablet PO 80 mg DAILY WINNIE Administration Famotidine 20 mg 09/02/20 09:00 09/04/20 09:09 Famotidine 20 Mg Tablet PO 20 mg DAILY WINNIE Administration Furosemide 80 mg 09/03/20 18:00 09/04/20 09:46 Furosemide 100 Mg/10 Ml Vial IVPUSH 80 mg BID@0900,1800 [facility] Administration Protocol Insulin Human Lispro 0 unit 09/01/20 21:00 09/04/20 07:28 Insulin Lispro 100 Unit/Ml 3 Ml Vial SUBCUT Not Given QIDACHS [facility] Protocol Isosorbide Mononitrate 30 mg 09/02/20 09:00 09/04/20 09:09 Isosorbide Mononitrate 30 Mg Tab.Er.24h PO 30 mg DAILY [facility] Administration Protocol Metoprolol Succinate 50 mg 09/02/20 09:00 09/04/20 09:09 Metoprolol Succinate Er 50 Mg Tab.Er.24h PO 50 mg DAILY [facility] Administration Protocol Nitroglycerin 0.4 mg 09/01/20 17:07 Nitroglycerin 0.4 Mg Tab.Subl SUBLINGUAL Q5M PRN Chest Pain Ondansetron HCl 4 mg 09/01/20 17:07 09/03/20 08:42 Ondansetron Hcl 4 Mg/2 Ml Vial IVPUSH 4 mg Q8H PRN Administration Nausea and Vomiting Pharmacy Consult 1 each 09/01/20 11:11 Consult Rx Perform Med Rec MISCELLANE ONCE PRN Consult order Ranolazine 500 mg 09/01/20 21:00 09/04/20 09:09 Ranolazine 500 Mg Tab.Er.12h PO 500 mg BID WINNIE Administration Sacubitril/Valsartan 1 tab 09/01/20 21:00 09/04/20 09:09 Sacubitril/Valsartan 24/26 1 Tab Tablet PO 1 tab BID [facility] Administration Protocol Sodium Chloride 3 ml 09/02/20 00:00 09/04/20 09:09 0.9 % Sodium Chloride Flush 3 Ml Syringe IVFLUSH 3 ml QSHIFT [facility] Administration Vitamin D 50 mcg 09/02/20 09:00 09/04/20 09:09 Cholecalciferol (Vitamin D3) 25 Mcg Tablet PO 50 mcg DAILY [facility] Administration Time Spent With Patient Time: Total time spent is greater than 50% in coordination of care (as documented) at patient's floor/unit and/or counseling patient: Time with patient: less than 15 minutes Procedures Date of Service Date of Service: 09/04/20
--- NOTE | 2020-09-04 11:05 | P.PNIM_ITS ---
Subjective Subjective Date of Service: 09/04/20 Interval History: feeling better Cardiovascular Cardiovascular: Reports no additional cardiovascular complaints Respiratory Respiratory: Reports no additional respiratory complaints Physical Exam Vital Signs: Vital Signs: Last Vital Signs Temp 98 F 09/04/20 07:01 Pulse 82 09/04/20 07:01 Resp 18 09/04/20 07:01 BP 108/62 09/04/20 07:01 Pulse Ox 94 09/04/20 07:01 Body Mass Index 23.3 General: AO X 3, no acute distress Resp: CTA bilateral CVS: S1,S2,RRR GI: soft, non tender, non distended Neuro: motor grossly intact Psych: appropriate affect Objective Data Current Medications Generic Name Dose Route Start Last Admin Trade Name Freq PRN Reason Stop Dose Admin Acetaminophen 650 mg 09/01/20 17:07 09/03/20 04:06 Acetaminophen 325 Mg Tablet PO 650 mg Q6H PRN Administration Pain, Mild (Pain Scale 1-3) Artificial Tears 1 drop 09/01/20 17:07 Artificial Tears 15 Ml Drops EYE-BOTH Q4H PRN Dry Eye(S) Aspirin 81 mg 09/02/20 09:00 09/04/20 09:09 Aspirin Enteric Coated 81 Mg Tablet. PO 81 mg DAILY WINNIE Administration Atorvastatin Calcium 80 mg 09/02/20 09:00 09/04/20 09:09 Atorvastatin Calcium 80 Mg Tablet PO 80 mg DAILY WINNIE Administration Famotidine 20 mg 09/02/20 09:00 09/04/20 09:09 Famotidine 20 Mg Tablet PO 20 mg DAILY WINNIE Administration Furosemide 80 mg 09/03/20 18:00 09/04/20 09:46 Furosemide 100 Mg/10 Ml Vial IVPUSH 80 mg BID@0900,1800 [facility] Administration Protocol Insulin Human Lispro 0 unit 09/01/20 21:00 09/04/20 07:28 Insulin Lispro 100 Unit/Ml 3 Ml Vial SUBCUT Not Given QIDACHS [facility] Protocol Isosorbide Mononitrate 30 mg 09/02/20 09:00 09/04/20 09:09 Isosorbide Mononitrate 30 Mg Tab.Er.24h PO 30 mg DAILY [facility] Administration Protocol Metoprolol Succinate 50 mg 09/02/20 09:00 09/04/20 09:09 Metoprolol Succinate Er 50 Mg Tab.Er.24h PO 50 mg DAILY WINNIE Administration Protocol Nitroglycerin 0.4 mg 09/01/20 17:07 Nitroglycerin 0.4 Mg Tab.Subl SUBLINGUAL Q5M PRN Chest Pain Ondansetron HCl 4 mg 09/01/20 17:07 09/03/20 08:42 Ondansetron Hcl 4 Mg/2 Ml Vial IVPUSH 4 mg Q8H PRN Administration Nausea and Vomiting Pharmacy Consult 1 each 09/01/20 11:11 Consult Rx Perform Med Rec MISCELLANE ONCE PRN Consult order Ranolazine 500 mg 09/01/20 21:00 09/04/20 09:09 Ranolazine 500 Mg Tab.Er.12h PO 500 mg BID WINNIE Administration Sacubitril/Valsartan 1 tab 09/01/20 21:00 09/04/20 09:09 Sacubitril/Valsartan 1 Tab Tablet PO 1 tab BID WINNIE Administration Protocol Sodium Chloride 3 ml 09/02/20 00:00 09/04/20 09:09 0.9 % Sodium Chloride Flush 3 Ml Syringe IVFLUSH 3 ml QSHIFT WINNIE Administration Vitamin D 50 mcg 09/02/20 09:00 09/04/20 09:09 Cholecalciferol (Vitamin D3) 25 Mcg Tablet PO 50 mcg DAILY WINNIE Administration Labs CBC & Chem 7: 09/03/20 04:02 09/04/20 04:06 Microbiology Microbiology Results: Microbiology 09/01/20 12:22 Blood - Venous Blood Culture - Preliminary No growth after 48 hours. 09/01/20 11:45 Blood - Venous Blood Culture - Preliminary No growth after 48 hours. Assessment and Plan (1) CHF (congestive heart failure): Status: Acute Assessment and Plan: 85M presented with sob acute on chronic systolic and diastolic chf with mod-severe pulm htn continue lasix 80mg bid today, monitor labs closely, likely change to po by tomorrow if continues to improve entresto, beta carmelo cardio following echo - ef 15-20%, g3dd, mod-severe pulm htn CORA cardiorenal improvedwith diuresis, monitor closely urinary retention reyes placed, will keep while diuresing CAD asa, statin ,beta blcoker Diabetes mellitus. Sliding scale, ADA diet
[2020-09-04 11:09] VITALS: BP 115/66; PULSE 66; RESP 18; TEMP 36.1; O2SAT 96
[2020-09-04 11:21] LABS: Glucose, Whole Blood 178 mg/dL (60-115)
[2020-09-04] MEDS: Insulin Lispro 100 UNIT/ML 3 ML VIAL SUBCUT ×2 (11:36→20:21)
[2020-09-04 15:19] VITALS: BP 109/58; PULSE 61; RESP 22; TEMP 36.2; O2SAT 96
[2020-09-04 15:53] LABS: Glucose, Whole Blood 128 mg/dL (60-115)
[2020-09-04 19:06] VITALS: BP 100/58; PULSE 76; RESP 18; TEMP 36.2; O2SAT 93
[2020-09-04 20:05] LABS: Glucose, Whole Blood 203 mg/dL (60-115)
[2020-09-05] VITALS: BP 99/49; PULSE 92; RESP 18; TEMP 36.8; O2SAT 93
[2020-09-05] MEDS: 0.9 % Sodium Chloride Flush 3 ML SYRINGE IVFLUSH ×2 (00:17→09:03)
[2020-09-05 03:34] VITALS: BP 98/65; PULSE 67; RESP 18; TEMP 37.1; O2SAT 92
[2020-09-05 06:00] VITALS: BMI 23.1
[2020-09-05 06:02] LABS: MANUAL DIFF FLAG SCAN; Mean Corpuscular Hemoglobin 32.3 pg (27.0-33.0); Mean Platelet Volume 11.4 fL (9.4-12.4); PLT CLUMP 1; SCAN SMEAR FLAG 1
[2020-09-05 06:05] LABS: Basophils Percent Auto 0.7 % (0-2); Eosinophils Absolute Auto 0.2 X10*3/uL (0.0-0.4); Eosinophils Percent Auto 3.5 % (0-4); Hemoglobin 12.8 g/dl (14.0-18.0); Imm Gran Abs Auto 0.02 X10*3/uL (0.00-0.03); Imm Gran Pct Auto 0.4 % (0.0-0.4); Lymphocytes Absolute Auto 1.5 X10*3/uL (1.2-4.9); Lymphocytes Percent Auto 26.2 % (20-40); Mean Corpuscular HGB Conc 33.7 g/dl (31.0-36.0); Monocytes Absolute Auto 0.7 X10*3/uL (0.1-1.2); Monocytes Percent Auto 12.5 % (2-11); Neutrophils Absolute Auto 3.2 X10*3/uL (2.0-8.3); Neutrophils Percent Auto 56.7 % (45-73); Platelet Count 122 X10*3/uL (160-400); Red Blood Count 3.96 X10*6/uL (4.60-5.80); Red Cell Distribution Width 15.5 % (11.0-16.0); White Blood Count 5.7 X10*3/uL (4.8-10.8)
[2020-09-05 06:31] LABS: SLIDE REVIEW VERIFIED
[2020-09-05 06:41] LABS: Anion Gap 13 (12-20); Blood Urea Nitrogen 35 mg/dL (9-16); Carbon Dioxide 28 mmol/L (22-29); Chloride 101 mmol/L (96-108); Estimated Glomerular Filt Rate 57; Glucose Fasting 75 mg/dL (60-99); Magnesium 2.5 mg/dL (1.6-2.6); Potassium 3.2 mmol/L (3.3-5.1); Sodium 139 mmol/L (135-145)
[2020-09-05 06:57] VITALS: BP 100/61; PULSE 65; RESP 18; TEMP 36.6; O2SAT 96
[2020-09-05 07:21] LABS: Glucose, Whole Blood 74 mg/dL (60-115)
[2020-09-05 07:36] LABS: B Type Natriuretic Peptide 3162 pg/mL (<100)
[2020-09-05] MEDS: Metoprolol Succinate ER 50 MG TAB.ER.24H PO (09:02)
[2020-09-05] MEDS: Aspirin Enteric Coated 81 MG TABLET.DR PO (09:02)
[2020-09-05] MEDS: Isosorbide Mononitrate 30 MG TAB.ER.24H PO (09:02)
[2020-09-05] MEDS: Famotidine 20 MG TABLET PO (09:02)
[2020-09-05] MEDS: Cholecalciferol (Vitamin D3) 25 MCG TABLET 50 MCG PO (09:02)
[2020-09-05] MEDS: Ranolazine 500 MG TAB.ER.12H PO (09:03)
[2020-09-05] MEDS: Sacubitril/Valsartan 24/26 1 TAB TABLET PO (09:03)
[2020-09-05] MEDS: Atorvastatin Calcium 80 MG TABLET PO (09:04)
--- NOTE | 2020-09-05 10:15 | P.DS_ITS ---
DS: Providers Provider Date of Service: 09/05/20 Date of admission: 09/01/20 17:07 Primary care physician: Caroline Rudolph DO Consults: 09/01/20 17:07 Consult to Cardiology Routine Consulting Provider: Ramin Shearer Reason for consultation: chf; NSVT Has provider been notified: No DS: Diagnosis Discharge Diagnosis (1) Acute on chronic systolic (congestive) heart failure: Status: Acute (2) Ischemic cardiomyopathy: Status: Acute (3) CORA (acute kidney injury): Status: Acute (4) Pulmonary hypertension: Status: Acute DS: Medications Discharge Medications Home Medications: Home Medications Medication Instructions Recorded Confirmed Combivent Respimat 1 puff INHALATION QID 09/01/20 09/01/20 Stiolto Respimat 2 puff INHALATION DAILY 09/01/20 09/01/20 Trulicity 0.75 mg SUBCUT QWEEK 09/01/20 09/01/20 aspirin 81 mg PO DAILY 09/01/20 09/01/20 atorvastatin 80 mg PO DAILY 09/01/20 09/01/20 cholecalciferol (vitamin D3) 50 mcg PO DAILY 09/01/20 09/01/20 famotidine 20 mg PO DAILY 09/01/20 09/01/20 furosemide 80 mg PO BID 09/01/20 09/01/20 glipizide 5 mg PO DAILY 09/01/20 09/01/20 isosorbide mononitrate 30 mg PO DAILY 09/01/20 09/01/20 metoprolol succinate 50 mg PO DAILY 09/01/20 09/01/20 nitroglycerin 0.4 mg SUBLINGUAL Q5M PRN 09/01/20 09/01/20 ondansetron HCl 8 mg PO BID PRN 09/01/20 09/01/20 polyvinyl alcohol [Artificial 1 drp OPHTHALMIC (EYE) Q4H PRN 09/01/20 09/01/20 Tears (polyvin alc)] ranolazine 500 mg PO BID 09/01/20 09/01/20 Previous Rx's Medication Instructions Recorded sacubitril 24 mg-valsartan 26 mg 1 tab PO BID 90 Days #180 tab 05/19/20 tablet DS: Summary Hospital Course Hospital Course: Patient was admitted for acute on chronic systolic and diastolic congestive heart failure with moderate to severe pulmonary hypertension complicated by acute kidney injury likely due to cardiorenal syndrome. He was given IV Lasix titrated up to 80 mg twice daily. Patient diuresed well and his shortness of breath improved to the point where he was able to ambulate in hallway with minimal shortness of breath on room air. His creatinine returned to normal. Patient is feeling much better now and will be discharged home on Lasix 80 mg p.o. b.i.d. and add zaroxylyn 2.5mg 3 times a week will follow up with Cardiology. Time Spent with Patient Time attestation: Total time spent providing and/or coordinating discharge services: Discharge coordination time: Greater than 30 minutes Physical Exam Vital Signs: Vital Signs: Last Vital Signs Temp 98 F 09/05/20 06:57 Pulse 65 09/05/20 06:57 Resp 18 09/05/20 06:57 BP 100/61 09/05/20 06:57 Pulse Ox 96 09/05/20 06:57 Body Mass Index 23.1 General: AO X 3, no acute distress Resp: CTA bilateral CVS: S1,S2,RRR GI: soft, non tender, non distended Neuro: motor grossly intact Psych: appropriate affect DS: Data Data Completed and Pending Labs on day of discharge: Laboratory Results - last 24 hr 09/04/20 09/04/20 09/04/20 11:09 15:46 19:59 WBC RBC Hgb Hct MCV MCH MCHC RDW Plt Count MPV Immature Gran % (Auto) Neut % (Auto) Lymph % (Auto) [place] % (Auto) Eos % (Auto) Baso % (Auto) Lymph # (Auto) [place] # (Auto) Eos # (Auto) Baso # (Auto) Abs Immat Gran (auto) Absolute Neuts (auto) Absolute Nucleated RBC Nucleated RBC % (auto) Smear Tech's Comments Sodium Potassium Chloride Carbon Dioxide Anion Gap BUN Creatinine Estim Creat Clear Calc Estimated GFR POC Glucose 178 H 128 H 203 H Fasting Glucose Calcium Magnesium B-Natriuretic Peptide 09/05/20 09/05/20 09/05/20 05:13 05:14 05:14 WBC 5.7 RBC 3.96 L Hgb 12.8 L Hct 38.0 L MCV 96.0 MCH 32.3 MCHC 33.7 RDW 15.5 Plt Count 122 L MPV 11.4 Immature Gran % (Auto) 0.4 Neut % (Auto) 56.7 Lymph % (Auto) 26.2 [place] % (Auto) 12.5 H Eos % (Auto) 3.5 Baso % (Auto) 0.7 Lymph # (Auto) 1.5 [place] # (Auto) 0.7 Eos # (Auto) 0.2 Baso # (Auto) 0.0 Abs Immat Gran (auto) 0.02 Absolute Neuts (auto) 3.2 Absolute Nucleated RBC 0.000 Nucleated RBC % (auto) 0.0 Smear Tech's Comments VERIFIED Sodium 139 Potassium 3.2 L Chloride 101 Carbon Dioxide 28 Anion Gap 13 BUN 35 H Creatinine 1.21 Estim Creat Clear Calc 38.0 Estimated GFR 57 POC Glucose Fasting Glucose 75 Calcium 8.0 L Magnesium 2.5 B-Natriuretic Peptide 3162 H 09/05/20 06:57 WBC RBC Hgb Hct MCV MCH MCHC RDW Plt Count MPV Immature Gran % (Auto) Neut % (Auto) Lymph % (Auto) [place] % (Auto) Eos % (Auto) Baso % (Auto) Lymph # (Auto) [place] # (Auto) Eos # (Auto) Baso # (Auto) Abs Immat Gran (auto) Absolute Neuts (auto) Absolute Nucleated RBC Nucleated RBC % (auto) Smear Tech's Comments Sodium Potassium Chloride Carbon Dioxide Anion Gap BUN Creatinine Estim Creat Clear Calc Estimated GFR POC Glucose 74 Fasting Glucose Calcium Magnesium B-Natriuretic Peptide Preliminary micro results at discharge 09/01/20 12:22 Blood Culture - Preliminary Blood - Venous No growth after 48 hours. 09/01/20 11:45 Blood Culture - Preliminary Blood - Venous No growth after 48 hours. Discharge Plan Discharge Patient Disposition: Home, Self-Care Referrals: Caroline Rudolph DO [Primary Care Provider] - Discharge Medications: New metolazone 2.5 mg tablet 2.5 mg PO .QMWF Qty: 30 RF: 0 Continued Entresto 24-26 mg tablet 1 tab PO BID 90 Days Qty: 180 RF: 1 polyvinyl alcohol [Artificial Tears (polyvin alc)] 1.4 % Drops 1 drp OPHTHALMIC (EYE) Q4H PRN (Reason: Dry Eye(S)) RF: 0 ondansetron HCl 4 mg Tablet 8 mg PO BID PRN (Reason: Nausea And Vomiting) RF: 0 nitroglycerin 0.4 mg Tablet, Sublingual 0.4 mg SUBLINGUAL Q5M PRN (Reason: Chest Pain) RF: 0 Trulicity 0.75 mg/0.5 mL Pen Injector 0.75 mg SUBCUT QWEEK RF: 0 atorvastatin 80 mg Tablet 80 mg PO DAILY RF: 0 isosorbide mononitrate 30 mg Tablet Extended Release 24 Hr 30 mg PO DAILY RF: 0 glipizide 5 mg Tablet 5 mg PO DAILY RF: 0 ranolazine 500 mg Tablet Extended Release 12 Hr 500 mg PO BID RF: 0 cholecalciferol (vitamin D3) 50 mcg (2,000 unit) Capsule 50 mcg PO DAILY RF: 0 Combivent Respimat 20-100 mcg/actuation Mist 1 puff INHALATION QID RF: 0 aspirin 81 mg Tablet,Delayed Release (Dr/Ec) 81 mg PO DAILY RF: 0 famotidine 20 mg Tablet 20 mg PO DAILY RF: 0 furosemide 80 mg Tablet 80 mg PO BID RF: 0 Stiolto Respimat 2.5-2.5 mcg/actuation Mist 2 puff INHALATION DAILY RF: 0 metoprolol succinate 50 mg Tablet Extended Release 24 Hr 50 mg PO DAILY RF: 0 Discharge Orders: Discharge Order (Routine); Ordered 09/05/20 Ordered By: Mars Spicer Activity on Discharge: As tolerated Stand Alone Forms: Patient Portal Discharge page Care Plan Goals: manage chf Health Concerns: chf Plan of Treatment: take extra dose of lasix if you feel sob, follow up with cardiology
--- NOTE | 2020-09-05 10:19 | MHC.CM.PN ---
Patient has been medically cleared for dc to home today, no services. Second IMM addressed with Patient and the original has been given to him and a copy has been placed on the chart.
[2020-09-05] MEDS: Furosemide 40 MG TABLET 80 MG PO (10:25)
[2020-09-05 10:56] VITALS: BP 98/57; PULSE 68; RESP 18; TEMP 36.1; O2SAT 94
[2020-09-05 11:15] LABS: Glucose, Whole Blood 105 mg/dL (60-115)
--- NOTE | 2020-09-05 12:44 | MHC.CM.PN ---
ELBA contacted pts daughter, Sena Covington ([phone]) and informed her of pts pending DC. She confirms the pt lives alone and has no services. She reports she plans to contact [facility] to request an assessment for services once pt is home. Sena declined CM offer to contact [facility] and request the assessment. ELBA did leave a vm message for Yadi at [facility] to inform her of pts DC. Sena will pick pt up at 1400
--- NOTE | 2020-09-05 12:59 | PM.PNCARD ---
Subjective Subjective Date of Service: 09/05/20 Interval history: He states that he feels okay. Shortness of breath seems improved. Review of Systems Review of Systems Yes all other systems are reviewed and are negative Cardiovascular: Reports as per HPI, Reports no additional cardiovascular complaints, Denies acrocyanosis, Denies cool extremities, Denies painful fingertips, Denies chest pain, Denies chest pain at rest, Denies diaphoresis, Denies syncope, Denies irregular heart rhythm, Denies claudication, Denies leg edema, Denies lightheadedness, Denies palpitations and Reports dyspnea Respiratory: Reports dyspnea Denies syncope Endocrine: Denies palpitations Physical Exam Vital Signs: Last Vital Signs Temp 97 F 09/05/20 10:56 Pulse 68 09/05/20 10:56 Resp 18 09/05/20 10:56 BP 98/57 L 09/05/20 10:56 Pulse Ox 94 09/05/20 10:56 Body Mass Index 23.1 Const General: cooperative, comfortable and no acute distress Orientation/consciousness: patient oriented x3 HENMT Other: Unremarkable Neck Neck: Yes normal visual inspection Chest Chest palpation & inspection: normal inspection of the chest Resp Auscultation: clear to auscultation bilaterally, crackles and no wheezes Cardio Jugular venous distension: no JVD Palpation: normal PMI Heart sounds: S1 normal heart sound present, S2 normal heart sound present, no gallops, Murmur heart sound present (apex) and no rubs GI Palpation (GI): Soft to palpation Back/Spine/Pelvis Other: unremarkable Skin General skin exam: no rashes or lesions noted Neuro General: patient oriented x3 Extrem General: Yes no clubbing, cyanosis or edema Psych Mental Status: mental status grossly normal Results Labs and Meds Result diagrams: 09/05/20 05:14 09/05/20 05:14 Lab results: Laboratory Results - last 24 hr 09/04/20 09/04/20 09/05/20 15:46 19:59 05:13 WBC RBC Hgb Hct MCV MCH MCHC RDW Plt Count MPV Immature Gran % (Auto) Neut % (Auto) Lymph % (Auto) [place] % (Auto) Eos % (Auto) Baso % (Auto) Lymph # (Auto) [place] # (Auto) Eos # (Auto) Baso # (Auto) Abs Immat Gran (auto) Absolute Neuts (auto) Absolute Nucleated RBC Nucleated RBC % (auto) Smear Tech's Comments Sodium Potassium Chloride Carbon Dioxide Anion Gap BUN Creatinine Estim Creat Clear Calc Estimated GFR POC Glucose 128 H 203 H Fasting Glucose Calcium Magnesium B-Natriuretic Peptide 3162 H 09/05/20 09/05/20 09/05/20 05:14 05:14 06:57 WBC 5.7 RBC 3.96 L Hgb 12.8 L Hct 38.0 L MCV 96.0 MCH 32.3 MCHC 33.7 RDW 15.5 Plt Count 122 L MPV 11.4 Immature Gran % (Auto) 0.4 Neut % (Auto) 56.7 Lymph % (Auto) 26.2 Chaves % (Auto) 12.5 H Eos % (Auto) 3.5 Baso % (Auto) 0.7 Lymph # (Auto) 1.5 Chaves # (Auto) 0.7 Eos # (Auto) 0.2 Baso # (Auto) 0.0 Abs Immat Gran (auto) 0.02 Absolute Neuts (auto) 3.2 Absolute Nucleated RBC 0.000 Nucleated RBC % (auto) 0.0 Smear Tech's Comments VERIFIED Sodium 139 Potassium 3.2 L Chloride 101 Carbon Dioxide 28 Anion Gap 13 BUN 35 H Creatinine 1.21 Estim Creat Clear Calc 38.0 Estimated GFR 57 POC Glucose 74 Fasting Glucose 75 Calcium 8.0 L Magnesium 2.5 B-Natriuretic Peptide 09/05/20 10:55 WBC RBC Hgb Hct MCV MCH MCHC RDW Plt Count MPV Immature Gran % (Auto) Neut % (Auto) Lymph % (Auto) [place]aves % (Auto) Eos % (Auto) Baso % (Auto) Lymph # (Auto) [place] # (Auto) Eos # (Auto) Baso # (Auto) Abs Immat Gran (auto) Absolute Neuts (auto) Absolute Nucleated RBC Nucleated RBC % (auto) Smear Tech's Comments Sodium Potassium Chloride Carbon Dioxide Anion Gap BUN Creatinine Estim Creat Clear Calc Estimated GFR POC Glucose 105 Fasting Glucose Calcium Magnesium B-Natriuretic Peptide Progress Note: A&P Assessment and plan (1) Atherosclerotic cardiovascular disease: Status: Acute (2) Acute on chronic systolic (congestive) heart failure: Status: Acute (3) Ischemic cardiomyopathy: Status: Acute (4) Non-rheumatic mitral regurgitation: Status: Acute (5) LBBB (left bundle branch block): Status: Acute Assessment and Plan: Clinically, he seems improved. We can keep him on oral diuretics. Add metolazone 2.5 mg alternate days. Lasix dosing as before. Otherwise continue beta-blockers, long-acting nitrates, Entresto as before. He was refusing ICD placement in the past but currently agreeable and hence we will make EP appointment for further evaluation the next few days. Discussed with Dr. Spicer. Echo- Conclusions: - The left ventricular systolic function is severely decreased. The visually estimated ejection fraction is between 15-20%. - Evidence suggests grade III (severe) diastolic dysfunction. - The apex, basal inferior, and basal inferoseptal segments are akinetic. - There is mildly decreased right ventricular systolic function. - The left atrium is severely dilated. - There is severe mitral valve regurgitation. - There is moderate to severe tricuspid valve regurgitation. - Moderate to severe pulmonary hypertension is present. Fall Risk Details Current Medications: Current Medications Generic Name Dose Route Start Last Admin Trade Name Freq PRN Reason Stop Dose Admin Acetaminophen 650 mg 09/01/20 17:07 09/03/20 04:06 Acetaminophen 325 Mg Tablet PO 650 mg Q6H PRN Administration Pain, Mild (Pain Scale 1-3) Artificial Tears 1 drop 09/01/20 17:07 Artificial Tears 15 Ml Drops EYE-BOTH Q4H PRN Dry Eye(S) Aspirin 81 mg 09/02/20 09:00 09/05/20 09:02 Aspirin Enteric Coated 81 Mg Tablet. PO 81 mg DAILY WINNIE Administration Atorvastatin Calcium 80 mg 09/02/20 09:00 09/05/20 09:04 Atorvastatin Calcium 80 Mg Tablet PO 80 mg DAILY WINNIE Administration Famotidine 20 mg 09/02/20 09:00 09/05/20 09:02 Famotidine 20 Mg Tablet PO 20 mg DAILY WINNIE Administration Furosemide 80 mg 09/05/20 10:15 09/05/20 10:25 Furosemide 40 Mg Tablet PO 80 mg BID@0900,1800 WINNIE Administration Protocol Insulin Human Lispro 0 unit 09/01/20 21:00 09/05/20 11:24 Insulin Lispro 100 Unit/Ml 3 Ml Vial SUBCUT Not Given QIDACHS WINNIE Protocol Isosorbide Mononitrate 30 mg 09/02/20 09:00 09/05/20 09:02 Isosorbide Mononitrate 30 Mg Tab.Er.24h PO 30 mg DAILY WINNIE Administration Protocol Metoprolol Succinate 50 mg 09/02/20 09:00 09/05/20 09:02 Metoprolol Succinate Er 50 Mg Tab.Er.24h PO 50 mg DAILY WINNIE Administration Protocol Nitroglycerin 0.4 mg 09/01/20 17:07 Nitroglycerin 0.4 Mg Tab.Subl SUBLINGUAL Q5M PRN Chest Pain Ondansetron HCl 4 mg 09/01/20 17:07 09/03/20 08:42 Ondansetron Hcl 4 Mg/2 Ml Vial IVPUSH 4 mg Q8H PRN Administration Nausea and Vomiting Pharmacy Consult 1 each 09/01/20 11:11 Consult Rx Perform Med Rec MISCELLANE ONCE PRN Consult order Ranolazine 500 mg 09/01/20 21:00 09/05/20 09:03 Ranolazine 500 Mg Tab.Er.12h PO 500 mg BID WINNIE Administration Sacubitril/Valsartan 1 tab 09/01/20 21:00 09/05/20 09:03 Sacubitril/Valsartan 24 1 Tab Tablet PO 1 tab BID WINNIE Administration Protocol Sodium Chloride 3 ml 09/02/20 00:00 09/05/20 09:03 0.9 % Sodium Chloride Flush 3 Ml Syringe IVFLUSH 3 ml QSHIFT WINNIE Administration Vitamin D 50 mcg 09/02/20 09:00 09/05/20 09:02 Cholecalciferol (Vitamin D3) 25 Mcg Tablet PO 50 mcg DAILY WINNIE Administration Time Spent With Patient Time: Total time spent is greater than 50% in coordination of care (as documented) at patient's floor/unit and/or counseling patient: Time with patient: less than 15 minutes Procedures Date of Service Date of Service: 09/05/20
[2020-09-05 15:30] VITALS: BP 123/66; PULSE 62; RESP 19; TEMP 36.2; O2SAT 100
[2020-09-05 16:30] LABS: Glucose, Whole Blood 171 mg/dL (60-115)
== END 2020-09-05 15:58 | disposition home or self-care (01) | DRG 292 ==
LOC: HO.ED 13:45 → HO.EDOVER 17:19 → HO.IMC 19:45
PROVIDERS: Nurse Practitioner Acute Care; Admitting Provider Internal Medicine; Emergency Provider Emergency Medicine; PCP Family Medicine; Visit Provider Internal Medicine
DX: I50.23 Acute on chronic systolic (congestive) heart failure (principal); N17.9 Acute kidney failure, unspecified; I25.10 Atherosclerotic heart disease of native coronary artery without angina pectoris; K21.9 Gastro-esophageal reflux disease without esophagitis; I27.20 Pulmonary hypertension, unspecified; I44.7 Left bundle-branch block, unspecified; R33.9 Retention of urine, unspecified; I34.0 Nonrheumatic mitral (valve) insufficiency; E78.5 Hyperlipidemia, unspecified; I25.5 Ischemic cardiomyopathy; Z95.1 Presence of aortocoronary bypass graft; Z20.822 Contact with and (suspected) exposure to COVID-19; Z79.82 Long term (current) use of aspirin; Z79.84 Long term (current) use of oral hypoglycemic drugs; Z79.899 Other long term (current) drug therapy
CPT/HCPCS: 36415; 71045; 80048; 80076; 82947; 83690; 83735; 83880; 84484; 85025; 85610; 85730; 87040; 87635; 93005; 93306; 94640; 96374; 96375; 99285; C1758; J1940; J2405; J2930; Q9957

== ENCOUNTER 2020-09-11 11:35 | Outpatient (REF) | payer OTHER, SELFPAY ==
[2020-09-11 12:38] LABS: Anion Gap 13 (12-20); Blood Urea Nitrogen 21 mg/dL (9-16); Calcium 9.3 mg/dL (8.4-10.2); Carbon Dioxide 31 mmol/L (22-29); Chloride 100 mmol/L (96-108); Estimated Glomerular Filt Rate 50; Glucose Random 110 mg/dL (60-115); Potassium 3.8 mmol/L (3.3-5.1); Sodium 140 mmol/L (135-145)
[2020-09-11 13:15] LABS: Estimated Average Glucose 209 mg/dL; Hemoglobin A1c % 8.9 %
== END 2020-09-11 11:36 | disposition home or self-care (01) ==
LOC: HO.LNP 11:35
PROVIDERS: Visit Provider Family Medicine
DX: I50.23 Acute on chronic systolic (congestive) heart failure (principal); E11.22 Type 2 diabetes mellitus with diabetic chronic kidney disease
CPT/HCPCS: 80048; 83036

== ENCOUNTER 2020-09-17 16:46 | Inpatient (IN) | payer OTHER, SELFPAY ==
--- NOTE | ~2020-09-17 | XR_ITS ---
EXAMINATION: XR CHEST CLINICAL INFORMATION: Hypotension with possible sepsis. History of CHF COMPARISON: 09/01/2020 TECHNIQUE: Frontal view of the chest was obtained. FINDINGS: The heart is enlarged. There is no evidence of CHF. XR/XR chest 1V IMPRESSION: At the time of the prior study some mild pulmonary vascular congestion was present which appears improved since the prior study. Tiny pleural effusions have resolved. No infiltrates, lung masses or pleural effusions are present at this time. IMPRESSION: Resolved changes of pulmonary vascular congestion. Cardiomegaly remains.
--- NOTE | ~2020-09-17 | US_ITS ---
EXAMINATION: US ABDOMEN LIMITED CLINICAL INFORMATION: elevated bilirubin. COMPARISON: CT abdomen pelvis dated 04/09/2016 TECHNIQUE: Real-time imaging of the right upper quadrant abdominal viscera. FINDINGS: PANCREAS: Midportion of the pancreatic body and head are unremarkable. The pancreatic tail is obscured by bowel gas. LIVER: Normal. The liver is normal in size. The liver contour is normal. Parenchymal echogenicity is normal. No focal hepatic lesion. There is no intrahepatic biliary duct dilatation seen. GALLBLADDER: There is an ill-defined echogenic focus within the gallbladder lumen dependently which is most consistent with echogenic bile/sludge. There is a more focal, echogenic rounded structure in this region that measures 3 mm in diameter may correspond to a small stone. This does not demonstrate significant shadowing. Gallbladder wall thickness is normal. No pericholecystic fluid. COMMON BILE DUCT: Normal in caliber measuring 0.4 cm in diameter. RIGHT KIDNEY: Normal. No hydronephrosis. No renal calculi or focal parenchymal lesions. The kidney measures 8.9 cm in maximum dimension. FREE FLUID: None. US/US abdomen limited IMPRESSION: Sludge in the gallbladder and a probable small 3 mm nonshadowing gallstone. No evidence of acute cholecystitis. No biliary ductal dilatation.
--- NOTE | ~2020-09-17 | US_ITS ---
EXAMINATION: US RETROPERITONEAL LIMITED (RENAL ONLY) CLINICAL INFORMATION: CORA COMPARISON: CT abdomen and pelvis 04/09/2016, ultrasound abdomen 09/18/2020 TECHNIQUE: Real-time imaging of the kidneys. FINDINGS: RIGHT KIDNEY: 9.8 x 4.7 x 6.1 cm (SAG x AP x TRV). The kidney is normal in size, contour, and echogenicity. Renal cortical thickness is normal. No calculi or focal parenchymal lesions. No hydronephrosis. LEFT KIDNEY: 10.5 x 5.5 x 5.3 cm (SAG x AP x TRV). The kidney is normal in size, contour, and echogenicity. Renal cortical thickness is normal. No calculi or focal parenchymal lesions. No hydronephrosis. US/US renal BI IMPRESSION: Essentially unremarkable appearance of the kidneys.
[2020-09-17 16:48] VITALS: BP 82/49; PULSE 70; RESP 18; TEMP 36.7; O2SAT 95; BMI 24.0
[2020-09-17 18:54] VITALS: BP 83/50; PULSE 66; RESP 16
[2020-09-17 19:52] VITALS: BP 101/64; PULSE 68; RESP 16; TEMP 36.4; O2SAT 97
--- NOTE | 2020-09-17 20:17 | ED.GENADULT ---
HPI - General Adult General Chief complaint: General Medical Stated complaint: LOW BP Time Seen by Provider: 09/17/20 19:38 Source: patient and family (Daughter) Mode of arrival: EMS Limitations: no limitations History of Present Illness HPI narrative: Patient comes emergency room complaining of low blood pressure. Earlier this afternoon, patient had a visiting nurse coming by his apartment patient is by himself, it was noted that the blood pressure was in the 80s systolic. Patient's seo expert was called and was advised to bring the patient to hospital. Patient states that he feels well, has not been sick. The daughter is at bedside, states that 2 days ago the Lasix dose was increased from 100 mg b.i.d. to 160 mg b.i.d.. Patient was discharged from the hospital on September 05 for acute CHF exacerbation. At this time, patient denies chest pain, no shortness of breath, no abdominal pain. Patient's daughter is concerned that the patient has not been eating well for the last couple of days. Related Data Home Medications Medication Instructions Recorded Confirmed aspirin 81 mg tablet,delayed 81 mg PO DAILY 06/02/20 09/01/20 release atorvastatin 80 mg tablet 80 mg PO DAILY 06/02/20 09/01/20 cholecalciferol (vitamin D3) 50 50 mcg PO DAILY 06/02/20 09/01/20 mcg (2,000 unit) capsule famotidine 20 mg tablet 20 mg PO DAILY 06/02/20 09/01/20 furosemide 80 mg tablet 80 mg PO DAILY tab 06/02/20 09/01/20 metoprolol succinate 50 mg 50 mg PO DAILY 06/02/20 09/01/20 tablet,extended release 24 hr sacubitril 24 mg-valsartan 26 mg 1 tab PO BID 06/02/20 09/01/20 tablet Combivent Respimat 1 puff INHALATION QID 08/06/20 09/01/20 dulaglutide 0.75 mg/0.5 mL mg SUBCUT 08/25/20 09/01/20 subcutaneous pen injector ondansetron HCl 4 mg tablet 0 mg PO 08/25/20 09/01/20 Combivent Respimat 1 puff INHALATION QID 09/01/20 09/01/20 Stiolto Respimat 2 puff INHALATION DAILY 09/01/20 09/01/20 Trulicity 0.75 mg SUBCUT QWEEK 09/01/20 09/01/20 aspirin 81 mg PO DAILY 09/01/20 09/01/20 atorvastatin 80 mg PO DAILY 09/01/20 09/01/20 cholecalciferol (vitamin D3) 50 mcg PO DAILY 09/01/20 09/01/20 famotidine 20 mg PO DAILY 09/01/20 09/01/20 furosemide 80 mg PO BID 09/01/20 09/01/20 glipizide 5 mg PO DAILY 09/01/20 09/01/20 isosorbide mononitrate 30 mg PO DAILY 09/01/20 09/01/20 metoprolol succinate 50 mg PO DAILY 09/01/20 09/01/20 nitroglycerin 0.4 mg SUBLINGUAL Q5M PRN 09/01/20 09/01/20 ondansetron HCl 8 mg PO BID PRN 09/01/20 09/01/20 polyvinyl alcohol [Artificial 1 drp OPHTHALMIC (EYE) Q4H PRN 09/01/20 09/01/20 Tears (polyvin alc)] ranolazine 500 mg PO BID 09/01/20 09/01/20 Previous Rx's Medication Instructions Recorded sacubitril 24 mg-valsartan 26 mg 1 tab PO BID 90 Days #180 tab 05/19/20 tablet tiotropium 2.5 mcg-olodaterol 2.5 2 puff INHALATION DAILY 30 Days #1 07/17/20 mcg/actuation mist for inhalation ea isosorbide mononitrate 30 mg 30 mg PO QAM #30 tab 08/05/20 tablet,extended release 24 hr nitroglycerin 0.4 mg sublingual 0.4 mg SUBLINGUAL Q5M PRN #20 tab 08/15/20 tablet metolazone 2.5 mg PO .QMWF #30 tab 09/05/20 ranolazine 500 mg tablet,extended 500 mg PO BID #60 tab 09/10/20 release,12 hr Allergies Allergy/AdvReac Type Severity Reaction Status Date / Time No Known Allergies Allergy Unknown NOT Verified 09/08/20 14:24 APPLICABLE Review of Systems Review of Systems: Constitutional : No Weight loss, No Fever, No Chills, No Night Sweats, chronic fatigue ENT/Mouth : No Hearing loss, No Ear Pain, No Nasal Congestion, No Sinus Pain, No Hoarseness, No sore throat, No Rhinorrhea, No Swallowing Difficulty Eyes: No Eye Pain, No Swelling, No Redness, No Foreign Body, No Discharge, No Vision Changes Cardiovascular : No Chest Pain, No SOB, No Dyspnea on Exertion, complaining of chronic Orthopnea, No Edema, No Palpitations Respiratory : No Cough, No Sputum, No Wheezing, No Smoke Exposure, No Dyspnea Gastrointestinal : No Nausea, No Vomiting, No Diarrhea, No Constipation, No abdominal Pain, No Hematochezia, No Melena Genitourinary : no irregular bleeding, No Dysuria, No Urinary Frequency, No Hematuria, No Urinary Incontinence, No Urgency, No Flank Pain, No Urinary Flow Changes, No Hesitancy Musculoskeletal : No joint pain, No Myalgias, No Joint Swelling Skin : No Skin Lesions, No rash Neuro : No Weakness, No Numbness, No Paresthesias, No Loss of Consciousness, No Dizziness, No Headache Psych : No Anxiety/Panic, No Depression, No SI/HI/AH/VH, No Social Issues, Heme/Lymph: No Bruising, No Bleeding,No Lymphadenopathy Endocrine : No Polyuria, No Polydipsia, No Temperature Intolerance PMF Past Medical History Medical History CORA (acute kidney injury) 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 CAD (coronary artery disease) CAD (coronary artery disease) Chronic HFrEF (heart failure with reduced ejection fraction) Congestive heart failure COPD (chronic obstructive pulmonary disease) COPD (chronic obstructive pulmonary disease) Diabetes Diabetes mellitus GERD (gastroesophageal reflux disease) History of myocardial infarction Hyperlipidemia Hyperlipidemia Ischemic cardiomyopathy Ischemic cardiomyopathy LBBB (left bundle branch block) LBBB (left bundle branch block) Mitral regurgitation Non-rheumatic mitral regurgitation Nonrheumatic mitral valve regurgitation Pulmonary hypertension Surgical History Hx of CABG S/P CABG x 3 Family History Family History Father No problems noted. Mother No problems noted. Social History Social History (System 09/08/20 @ 14:24 by Dillan Oates) Household Members: Family, Foster Family and None Housing: Apartment Smoking Status: Never smoker Tobacco Type: Cigarette Second Hand Smoke Exposure: No Advance Directives: No Advance Directives Information Provided: No service: No Current occupational status: retired Physical Exam Vital Signs: Vital Signs: Last Vital Signs Temp 97.6 F 09/17/20 19:52 Pulse 66 09/18/20 00:16 Resp 16 09/18/20 00:16 BP 90/50 L 09/18/20 00:16 Pulse Ox 97 09/17/20 19:52 Body Mass Index 24.0 Appearance: Alert. Oriented X3. No acute distress. Ambulatory Eyes: Pupils equal, round and reactive to light. ENT: Pharynx normal. Neck: Normal inspection. Neck supple. No lymph nodes noted. No crepitus CVS: Normal heart rate and rhythm. Pulses normal. Normal S1 and S2 Respiratory: No respiratory distress. Breath sounds normal. No Wheezing. No rales Abdomen: Soft and nontender. No rigidity. No distention. Skin: Skin warm and dry. Slightly pale Extremities: No lower extremity edema. Neuro: Oriented X 3. No motor deficit. No sensory deficit. Moving all extermities. No slurred speech. Course Course Course Narrative: While patient's daughter was at bedside, we addressed the code status, patient states that he wants to be full code, if needed he is agreeable to a central line. The patient's daughter is the healthcare proxy, however the patient is lucid, alert and oriented x3 and takes his own decisions, the daughter agrees with the patient's decisions. At this time, patient has no fever, no tachycardia, reports no signs or symptoms of infection. Patient's low blood pressure is likely secondary to the recent increase in Lasix, which was doubled from his normal dose 2 days ago Due to patient's history of CHF, fluid was given to him slowly. Patient keeps saying that he feels well, blood pressure ranges between the high 80s to low 90s systolic. As mentioned above, sepsis is not suspected. I discussed the patient with Dr. Pollock, patient being admitted to the hospital. Patient's creatinine of 2.59 likely secondary to the increase of Lasix in the last couple of days. Patient's initial troponin 81.7, patient is symptomatic Medical Decision Making Lab Data Result diagrams: 09/17/20 20:32 09/17/20 21:29 Labs: Lab Results 09/17/20 09/17/2009/17/21 Range/Units 20:32 20:32 20:32 WBC 6.0 (4.8-10.8) X10*3/uL RBC 4.82 D (4.60-5.80) X10*6/uL Hgb 15.7 D (14.0-18.0) g/dl Hct 46.6 D (42-52) % MCV 96.7 (80-98) fL MCH 32.6 (27.0-33.0) pg MCHC 33.7 (31.0-36.0) g/dl RDW 15.7 (11.0-16.0) % Plt Count 196 D (160-400) X10*3/uL MPV 10.4 (9.4-12.4) fL Immature Gran % (Auto) 0.3 (0.0-0.4) % Neut % (Auto) 66.7 (45-73) % Lymph % (Auto) 19.0 L (20-40) % Hubbard % (Auto) 12.2 H (2-11) % Eos % (Auto) 1.3 (0-4) % Baso % (Auto) 0.5 (0-2) % Lymph # (Auto) 1.1 L (1.2-4.9) X10*3/uL Hubbard # (Auto) 0.7 (0.1-1.2) X10*3/uL Eos # (Auto) 0.1 (0.0-0.4) X10*3/uL Baso # (Auto) 0.0 (0.0-0.2) X10*3/uL Abs Immat Gran (auto) 0.02 (0.00-0.03) X10*3/uL Absolute Neuts (auto) 4.0 (2.0-8.3) X10*3/uL Absolute Nucleated RBC 0.000 (0.0-0.012) X10*3/uL Nucleated RBC % (auto) 0.0 (0.0-0.2) /100WBC PT 13.6 H (10.8-13.0) SEC INR 1.1 (0.9-1.1) Sodium Cancelled Potassium Cancelled Chloride Cancelled Carbon Dioxide Cancelled Anion Gap Cancelled BUN Cancelled Creatinine Cancelled Estim Creat Clear Calc Cancelled Estimated GFR Cancelled Random Glucose Cancelled Lactic Acid (0.5-2.0) mmol/L Calcium Cancelled Total Bilirubin Cancelled Direct Bilirubin Cancelled AST Cancelled ALT Cancelled Alkaline Phosphatase Cancelled Troponin I High Sens (<3.5-35.0) ng/L B-Natriuretic Peptide (<100) pg/mL Total Protein Cancelled Albumin Cancelled TSH Urine Color Urine Appearance Urine pH (5.0-8.0) Ur Specific [place] (1.005-1.025) Urine Protein (NEG-TRACE) MG/DL Urine Glucose (UA) (NEG) MG/DL Urine Ketones (NEG) MG/DL Urine Blood (NEG) Urine Nitrite (NEG) Ur Leukocyte Esterase (NEG) Urine RBC (0) /HPF Urine WBC (0-4) /HPF Ur Squamous Epith Cells /LPF Urine Bacteria /LPF Hyaline Casts /LPF COVID-19 (PETE) (Negative) COVID-19 Clin Com 09/17/20 09/17/20 09/17/20 Range/Units 20:32 20:32 20:32 WBC (4.8-10.8) X10*3/uL RBC (4.60-5.80) X10*6/uL Hgb (14.0-18.0) g/dl Hct (42-52) % MCV (80-98) fL MCH (27.0-33.0) pg MCHC (31.0-36.0) g/dl RDW (11.0-16.0) % Plt Count (160-400) X10*3/uL MPV (9.4-12.4) fL Immature Gran % (Auto) (0.0-0.4) % Neut % (Auto) (45-73) % Lymph % (Auto) (20-40) % Hubbard % (Auto) (2-11) % Eos % (Auto) (0-4) % Baso % (Auto) (0-2) % Lymph # (Auto) (1.2-4.9) X10*3/uL Hubbard # (Auto) (0.1-1.2) X10*3/uL Eos # (Auto) (0.0-0.4) X10*3/uL Baso # (Auto) (0.0-0.2) X10*3/uL Abs Immat Gran (auto) (0.00-0.03) X10*3/uL Absolute Neuts (auto) (2.0-8.3) X10*3/uL Absolute Nucleated RBC (0.0-0.012) X10*3/uL Nucleated RBC % (auto) (0.0-0.2) /100WBC PT (10.8-13.0) SEC INR (0.9-1.1) Sodium Potassium Chloride Carbon Dioxide Anion Gap BUN Creatinine Estim Creat Clear Calc Estimated GFR Random Glucose Lactic Acid 1.3 (0.5-2.0) mmol/L Calcium Total Bilirubin Direct Bilirubin AST ALT Alkaline Phosphatase Troponin I High Sens 81.7 H D (<3.5-35.0) ng/L B-Natriuretic Peptide 2128 H (<100) pg/mL Total Protein Albumin TSH Cancelled Urine Color Urine Appearance Urine pH (5.0-8.0) Ur Specific [place] (1.005-1.025) Urine Protein (NEG-TRACE) MG/DL Urine Glucose (UA) (NEG) MG/DL Urine Ketones (NEG) MG/DL Urine Blood (NEG) Urine Nitrite (NEG) Ur Leukocyte Esterase (NEG) Urine RBC (0) /HPF Urine WBC (0-4) /HPF Ur Squamous Epith Cells /LPF Urine Bacteria /LPF Hyaline Casts /LPF COVID-19 (PETE) (Negative) COVID-19 Clin Com 09/17/20 09/17/20 09/17/20 Range/Units 20:51 20:56 21:29 WBC (4.8-10.8) X10*3/uL RBC (4.60-5.80) X10*6/uL Hgb (14.0-18.0) g/dl Hct (42-52) % MCV (80-98) fL MCH (27.0-33.0) pg MCHC (31.0-36.0) g/dl RDW (11.0-16.0) % Plt Count (160-400) X10*3/uL MPV (9.4-12.4) fL Immature Gran % (Auto) (0.0-0.4) % Neut % (Auto) (45-73) % Lymph % (Auto) (20-40) % Hubbard % (Auto) (2-11) % Eos % (Auto) (0-4) % Baso % (Auto) (0-2) % Lymph # (Auto) (1.2-4.9) X10*3/uL Hubbard # (Auto) (0.1-1.2) X10*3/uL Eos # (Auto) (0.0-0.4) X10*3/uL Baso # (Auto) (0.0-0.2) X10*3/uL Abs Immat Gran (auto) (0.00-0.03) X10*3/uL Absolute Neuts (auto) (2.0-8.3) X10*3/uL Absolute Nucleated RBC (0.0-0.012) X10*3/uL Nucleated RBC % (auto) (0.0-0.2) /100WBC PT (10.8-13.0) SEC INR (0.9-1.1) Sodium 137 Potassium 4.2 Chloride 93 L Carbon Dioxide 25 Anion Gap 23 H BUN 58 H D Creatinine 2.59 H Estim Creat Clear Calc 17.7 Estimated GFR 24 Random Glucose 134 H Lactic Acid (0.5-2.0) mmol/L Calcium 9.7 Total Bilirubin 2.9 H Direct Bilirubin 0.9 H AST 23 ALT 33 Alkaline Phosphatase 98 Troponin I High Sens (<3.5-35.0) ng/L B-Natriuretic Peptide (<100) pg/mL Total Protein 7.2 Albumin 4.3 TSH 0.65 Urine Color YELLOW Urine Appearance CLEAR Urine pH 6.0 (5.0-8.0) Ur Specific [place] 1.015 (1.005-1.025) Urine Protein NEG (NEG-TRACE) MG/DL Urine Glucose (UA) NEG (NEG) MG/DL Urine Ketones NEG (NEG) MG/DL Urine Blood 1+ H (NEG) Urine Nitrite NEG (NEG) Ur Leukocyte Esterase NEG (NEG) Urine RBC 5-9 H (0) /HPF Urine WBC 0-2 (0-4) /HPF Ur Squamous Epith Cells NONE /LPF Urine Bacteria TRACE /LPF Hyaline Casts 1-4 /LPF COVID-19 (PETE) Negative (Negative) COVID-19 Clin Com See Note Imaging Data Chest x-ray: Radiologist's impression: At the time of the prior study some mild pulmonary vascular congestion was present which appears improved since the prior study. Tiny pleural effusions have resolved. No infiltrates, lung masses or pleural effusions are present at this time. IMPRESSION: Resolved changes of pulmonary vascular congestion. Cardiomegaly remains. ECG Data Attestation: I personally reviewed and interpreted this ECG as follows: (Sinus rhythm, heart rate 65, QTC 528, possible left atrial enlargement, left bundle-branch block no ST segment depression or elevation) Discharge Plan Discharge Prescriptions: No Action Entresto 24-26 mg tablet 1 tab PO BID 90 Days Qty: 180 RF: 1 isosorbide mononitrate 30 mg tablet extended release 24 hr 30 mg PO QAM Qty: 30 RF: 6 nitroglycerin 0.4 mg tablet, sublingual 0.4 mg sublingual Q5M PRN (Reason: chest pain) Qty: 20 RF: 1 ranolazine 500 mg tablet extended release 12 hr 500 mg PO BID Qty: 60 RF: 5 Combivent Respimat 20-100 mcg/actuation Mist 1 puff INHALATION QID RF: 0 polyvinyl alcohol [Artificial Tears (polyvin alc)] 1.4 % Drops 1 drp OPHTHALMIC (EYE) Q4H PRN (Reason: Dry Eye(S)) RF: 0 ondansetron HCl 4 mg Tablet 8 mg PO BID PRN (Reason: Nausea And Vomiting) RF: 0 nitroglycerin 0.4 mg Tablet, Sublingual 0.4 mg SUBLINGUAL Q5M PRN (Reason: Chest Pain) RF: 0 Trulicity 0.75 mg/0.5 mL Pen Injector 0.75 mg SUBCUT QWEEK RF: 0 atorvastatin 80 mg Tablet 80 mg PO DAILY RF: 0 isosorbide mononitrate 30 mg Tablet Extended Release 24 Hr 30 mg PO DAILY RF: 0 glipizide 5 mg Tablet 5 mg PO DAILY RF: 0 ranolazine 500 mg Tablet Extended Release 12 Hr 500 mg PO BID RF: 0 cholecalciferol (vitamin D3) 50 mcg (2,000 unit) Capsule 50 mcg PO DAILY RF: 0 Combivent Respimat 20-100 mcg/actuation Mist 1 puff INHALATION QID RF: 0 aspirin 81 mg Tablet,Delayed Release (Dr/Ec) 81 mg PO DAILY RF: 0 famotidine 20 mg Tablet 20 mg PO DAILY RF: 0 furosemide 80 mg Tablet 80 mg PO BID RF: 0 Stiolto Respimat 2.5-2.5 mcg/actuation Mist 2 puff INHALATION DAILY RF: 0 metoprolol succinate 50 mg Tablet Extended Release 24 Hr 50 mg PO DAILY RF: 0 metolazone 2.5 mg tablet 2.5 mg PO .QMWF Qty: 30 RF: 0 sacubitril-valsartan 24-26 mg tablet 1 tab PO BID RF: 0 cholecalciferol (vitamin D3) 50 mcg (2,000 unit) capsule 50 mcg PO DAILY RF: 0 furosemide 80 mg tablet 80 mg PO DAILY RF: 0 atorvastatin 80 mg tablet 80 mg PO DAILY RF: 0 aspirin 81 mg tablet,delayed release (DR/EC) 81 mg PO DAILY RF: 0 metoprolol succinate 50 mg tablet extended release 24 hr 50 mg PO DAILY RF: 0 famotidine 20 mg tablet 20 mg PO DAILY RF: 0 Stiolto Respimat 2.5-2.5 mcg/actuation mist 2 puff inhalation DAILY 30 Days Qty: 1 RF: 6 Trulicity 0.75 mg/0.5 mL pen injector subcut RF: 0 ondansetron HCl 4 mg tablet 0 mg PO RF: 0
--- NOTE | 2020-09-17 20:18 | ECG_ITS ---
Test Reason : LOW BLOOD PRESSURE Blood Pressure : / mmHG Vent. Rate : 065 BPM Atrial Rate : 065 BPM P-R Int : 156 ms QRS Dur : 150 ms QT Int : 508 ms P-R-T Axes : 060 -31 116 degrees QTc Int : 528 ms Normal sinus rhythm Possible Left atrial enlargement Left axis deviation Left bundle branch block Abnormal ECG When compared with ECG of 06-AUG-2020 08:54, No significant change was found Referred By: Lisseth Spann Electronically Signed By:KELSEY WHARTON MD
--- NOTE | 2020-09-17 20:23 | PC.NURSE ---
CXR at bedside.
[2020-09-17] MEDS: 0.9 % Sodium Chloride 1,000 ML 500 ML IVCONT (20:34)
[2020-09-17 20:37] LABS: MANUAL DIFF FLAG NO
[2020-09-17 20:40] LABS: Basophils Percent Auto 0.5 % (0-2); Eosinophils Absolute Auto 0.1 X10*3/uL (0.0-0.4); Eosinophils Percent Auto 1.3 % (0-4); Hematocrit 46.6 % (42-52); Hemoglobin 15.7 g/dl (14.0-18.0); Imm Gran Abs Auto 0.02 X10*3/uL (0.00-0.03); Imm Gran Pct Auto 0.3 % (0.0-0.4); Lymphocytes Absolute Auto 1.1 X10*3/uL (1.2-4.9); Mean Corpuscular HGB Conc 33.7 g/dl (31.0-36.0); Mean Corpuscular Hemoglobin 32.6 pg (27.0-33.0); Mean Corpuscular Volume 96.7 fL (80-98); Mean Platelet Volume 10.4 fL (9.4-12.4); Monocytes Absolute Auto 0.7 X10*3/uL (0.1-1.2); Monocytes Percent Auto 12.2 % (2-11); Neutrophils Percent Auto 66.7 % (45-73); Platelet Count 196 X10*3/uL (160-400); Red Blood Count 4.82 X10*6/uL (4.60-5.80); Red Cell Distribution Width 15.7 % (11.0-16.0)
[2020-09-17 20:48] LABS: INTERNATIONAL NORM RATIO 1.1 (0.9-1.1); Prothrombin Time 13.6 SEC (10.8-13.0)
[2020-09-17 21:01] LABS: Lactic Acid 1.3 mmol/L (0.5-2.0)
[2020-09-17 21:05] LABS: Glucose Urine UA NEG (NEG); Leukocyte Esterase Urine NEG (NEG); Nitrite Urine NEG (NEG); Specific Gravity - Urine 1.015 (1.005-1.025); Urine Blood 1+ (NEG); Urine Ketones NEG (NEG); Urine Protein NEG (NEG-TRACE)
[2020-09-17 21:07] LABS: Appearance Urine CLEAR; Color Urine YELLOW
[2020-09-17 21:19] LABS: COVID-19 Test Negative (Negative)
[2020-09-17 21:25] LABS: B Type Natriuretic Peptide 2128 pg/mL (<100); Troponin-I High Sensitivity 81.7 ng/L (<3.5-35.0)
[2020-09-17 21:25] LABS: Bacteria Urine TRACE /LPF; WBC Urine 0-2 /HPF (0-4)
--- NOTE | 2020-09-17 21:26 | PC.NURSE ---
critical troponin 81.7, per lab. & notified.
[2020-09-17 22:13] VITALS: BP 82/46; PULSE 67; RESP 20
[2020-09-17 22:29] LABS: Alanine Aminotransferase 33 U/L (0-40); Albumin Level 4.3 g/dL (3.5-5.0); Alkaline Phosphatase 98 U/L (39-117); Anion Gap 23 (12-20); Aspartate Amino Transferase 23 U/L (5-37); Bilirubin Direct 0.9 mg/dL (0.0-0.5); Bilirubin Total 2.9 mg/dL (0.0-1.0); Blood Urea Nitrogen 58 mg/dL (9-16); Calcium 9.7 mg/dL (8.4-10.2); Carbon Dioxide 25 mmol/L (22-29); Chloride 93 mmol/L (96-108); Creatinine Clr Calc Pharmacy 17.7; Estimated Glomerular Filt Rate 24; Glucose Random 134 mg/dL (60-115); Potassium 4.2 mmol/L (3.3-5.1); Sodium 137 mmol/L (135-145); Total Protein 7.2 g/dL (6.5-8.0)
[2020-09-17 22:41] LABS: Thyroid Stimulating Hormone 0.65 uIU/mL (0.32-4.0)
[2020-09-18] VITALS (8 sets, daily range): BP systolic 84–105; BP diastolic 50–67; PULSE 64–84; RESP 16–18; TEMP 36.1–36.9; O2SAT 92–97
[2020-09-18 00:46] LABS: Troponin-I High Sensitivity 67.1 ng/L (<3.5-35.0)
--- NOTE | 2020-09-18 01:04 | P.HPHOSP_ITS ---
History of Present Illness Date of Service: 09/18/20 Chief Complaint: Low blood pressure 85-year-old male with a past medical history of hypertension, hyperlipidemia, diabetes, CAD status post CABG, systolic CHF, COPD, history of left bundle branch block, mitral regurgitation, pulmonary hypertension,presented to the hospital with a chief complaint of low blood pressure. Reportedly patient has visiting nurses and who checked his blood pressure on a routine visit and noted his blood pressure is low with systolic in 80s subsequently brought him to the hospital for further evaluation. Patient denies any lightheadedness dizziness. Denies any chest pain palpitations. Denies any fever chills cough. Denies any urinary complaints. Review of all other systems is negative except mentioned above Off node reported that patient's Lasix dose has been recently increased for his CHF. ER course: Patient exam was benign, chest x-ray showed no acute findings, urinalysis negative for infection; troponins slightly elevated more than his baseline; on labs noted to have AA. Given IV fluids. Blood pressure improved from 82/49 on presentation to 90/50. Admitted for further management. [facility] Medical History CORA (acute kidney injury) 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 CAD (coronary artery disease) CAD (coronary artery disease) Chronic HFrEF (heart failure with reduced ejection fraction) Congestive heart failure COPD (chronic obstructive pulmonary disease) COPD (chronic obstructive pulmonary disease) Diabetes Diabetes mellitus GERD (gastroesophageal reflux disease) History of myocardial infarction Hyperlipidemia Hyperlipidemia Ischemic cardiomyopathy Ischemic cardiomyopathy LBBB (left bundle branch block) LBBB (left bundle branch block) Mitral regurgitation Non-rheumatic mitral regurgitation Nonrheumatic mitral valve regurgitation Pulmonary hypertension Family History Father No problems noted. Mother No problems noted. Surgical History Hx of CABG S/P CABG x 3 Social History Household Members: Children Housing: Apartment Smoking Status: Former smoker Tobacco Type: Cigarette Second Hand Smoke Exposure: No service: No Current occupational status: retired Meds Allergies Allergy/AdvReac Type Severity Reaction Status Date / Time No Known Allergies Allergy Unknown NOT Verified 09/08/20 14:24 APPLICABLE Active Medications: Current Medications Generic Name Dose Route Start Last Admin Trade Name Freq PRN Reason Stop Dose Admin Acetaminophen 650 mg 09/18/20 00:51 Acetaminophen 325 Mg Tablet PO Q6H PRN Pain, Mild (Pain Scale 1-3) Enoxaparin Sodium 40 mg 09/18/20 01:00 Enoxaparin Sodium 40 Mg/0.4 Ml Syringe SUBCUT Q24H REPLACED BY [facility] Sodium Chloride 1,000 mls @ 75 mls/hr 09/18/20 01:00 Ns IVCONT .[id number] REPLACED BY [facility] Insulin Human Lispro 0 unit 09/18/20 07:30 Insulin Lispro 100 Unit/Ml 3 Ml Vial SUBCUT QIDACHS REPLACED BY [facility] Protocol Senna 17.2 mg 09/18/20 00:51 Sennosides 8.6 Mg Tablet PO BEDTIME PRN Constipation Sodium Chloride 3 ml 09/18/20 08:00 0.9 % Sodium Chloride Flush 3 Ml Syringe IVFLUSH QSHIFT REPLACED BY [facility] Home Medications Medication Instructions Recorded Confirmed Last Taken Type Combivent Respimat 1 puff INHALATION QID 08/06/20 09/18/20 08/06/20 History Stiolto Respimat 2 puff INHALATION DAILY 09/01/20 09/18/20 Unknown History Trulicity 0.75 mg SUBCUT DIOP 09/01/20 09/18/20 Unknown History aspirin 81 mg PO DAILY 09/01/20 09/18/20 Unknown History atorvastatin 80 mg PO DAILY 09/01/20 09/18/20 Unknown History famotidine 20 mg PO DAILY 09/01/20 09/18/20 Unknown History ondansetron HCl 8 mg PO BID PRN 09/01/20 09/18/20 Unknown History polyvinyl alcohol [Artificial 1 drp OPHTHALMIC (EYE) Q4H PRN 09/01/20 09/18/20 Unknown History Tears (polyvin alc)] ranolazine 500 mg PO BID 09/01/20 09/18/20 Unknown History Entresto 1 tab PO BID 09/18/20 09/18/20 Unknown History cholecalciferol (vitamin D3) 1 cap PO QAM 09/18/20 09/18/20 Unknown History nitroglycerin 1 tab SUBLINGUAL NEEDED 09/18/20 09/18/20 Unknown History Physical Exam Vital Signs and Narrative: Vital Signs: Last Vital Signs Temp 97.6 F 09/17/20 19:52 Pulse 66 09/18/20 00:16 Resp 16 09/18/20 00:16 BP 90/50 L 09/18/20 00:16 Pulse Ox 97 09/17/20 19:52 Body Mass Index 24.0 Gen: Appears be in no acute distress HEENT: NCAT, Moist mucosa. Pulmonary: Vesicular breath sounds, fair air entry CVS: Normal S1-S2 Abdomen: BS+, Soft, Nontender Extremities: Warm well perfused Neuro: Alert and awake. Results Labs CBC and Chem 7: 09/21/20 06:24 09/21/20 06:24 Labs: Laboratory Results - last 24 hr 09/17/20 09/17/20 09/17/20 20:32 20:32 20:32 MCV 96.7 MCH 32.6 MCHC 33.7 RDW 15.7 Plt Count 196 D MPV 10.4 Immature Gran % (Auto) 0.3 Neut % (Auto) 66.7 Lymph % (Auto) 19.0 L Harvey % (Auto) 12.2 H Eos % (Auto) 1.3 Baso % (Auto) 0.5 Lymph # (Auto) 1.1 L Harvey # (Auto) 0.7 Eos # (Auto) 0.1 Baso # (Auto) 0.0 Abs Immat Gran (auto) 0.02 Absolute Neuts (auto) 4.0 Absolute Nucleated RBC 0.000 Nucleated RBC % (auto) 0.0 PT 13.6 H INR 1.1 Anion Gap Cancelled Estim Creat Clear Calc Cancelled Estimated GFR Cancelled Random Glucose Cancelled Lactic Acid Calcium Cancelled Total Bilirubin Cancelled Direct Bilirubin Cancelled AST Cancelled ALT Cancelled Alkaline Phosphatase Cancelled Troponin I High Sens B-Natriuretic Peptide Total Protein Cancelled Albumin Cancelled TSH Urine Color Urine Appearance Urine pH Ur Specific Mamou Urine Protein Urine Glucose (UA) Urine Ketones Urine Blood Urine Nitrite Ur Leukocyte Esterase Urine RBC Urine WBC Ur Squamous Epith Cells Urine Bacteria Hyaline Casts COVID-19 (PETE) COVID-19 Clin Com 09/17/20 09/17/20 09/17/20 20:32 20:32 20:32 MCV MCH MCHC RDW Plt Count MPV Immature Gran % (Auto) Neut % (Auto) Lymph % (Auto) Harvey % (Auto) Eos % (Auto) Baso % (Auto) Lymph # (Auto) Harvey # (Auto) Eos # (Auto) Baso # (Auto) Abs Immat Gran (auto) Absolute Neuts (auto) Absolute Nucleated RBC Nucleated RBC % (auto) PT INR Anion Gap Estim Creat Clear Calc Estimated GFR Random Glucose Lactic Acid 1.3 Calcium Total Bilirubin Direct Bilirubin AST ALT Alkaline Phosphatase Troponin I High Sens 81.7 H D B-Natriuretic Peptide 2128 H Total Protein Albumin TSH Cancelled Urine Color Urine Appearance Urine pH Ur Specific Mamou Urine Protein Urine Glucose (UA) Urine Ketones Urine Blood Urine Nitrite Ur Leukocyte Esterase Urine RBC Urine WBC Ur Squamous Epith Cells Urine Bacteria Hyaline Casts COVID-19 (PETE) COVID-19 Clin Com 09/17/20 09/17/20 09/17/20 20:51 20:56 21:29 MCV MCH MCHC RDW Plt Count MPV Immature Gran % (Auto) Neut % (Auto) Lymph % (Auto) Harvey % (Auto) Eos % (Auto) Baso % (Auto) Lymph # (Auto) Harvey # (Auto) Eos # (Auto) Baso # (Auto) Abs Immat Gran (auto) Absolute Neuts (auto) Absolute Nucleated RBC Nucleated RBC % (auto) PT INR Anion Gap 23 H Estim Creat Clear Calc 17.7 Estimated GFR 24 Random Glucose 134 H Lactic Acid Calcium 9.7 Total Bilirubin 2.9 H Direct Bilirubin 0.9 H AST 23 ALT 33 Alkaline Phosphatase 98 Troponin I High Sens B-Natriuretic Peptide Total Protein 7.2 Albumin 4.3 TSH 0.65 Urine Color YELLOW Urine Appearance CLEAR Urine pH 6.0 Ur Specific Mamou 1.015 Urine Protein NEG Urine Glucose (UA) NEG Urine Ketones NEG Urine Blood 1+ H Urine Nitrite NEG Ur Leukocyte Esterase NEG Urine RBC 5-9 H Urine WBC 0-2 Ur Squamous Epith Cells NONE Urine Bacteria TRACE Hyaline Casts 1-4 COVID-19 (PETE) Negative COVID-19 Clin Com See Note 09/18/20 00:14 MCV MCH MCHC RDW Plt Count MPV Immature Gran % (Auto) Neut % (Auto) Lymph % (Auto) Harvey % (Auto) Eos % (Auto) Baso % (Auto) Lymph # (Auto) Harvey # (Auto) Eos # (Auto) Baso # (Auto) Abs Immat Gran (auto) Absolute Neuts (auto) Absolute Nucleated RBC Nucleated RBC % (auto) PT INR Anion Gap Estim Creat Clear Calc Estimated GFR Random Glucose Lactic Acid Calcium Total Bilirubin Direct Bilirubin AST ALT Alkaline Phosphatase Troponin I High Sens 67.1 H B-Natriuretic Peptide Total Protein Albumin TSH Urine Color Urine Appearance Urine pH Ur Specific Mamou Urine Protein Urine Glucose (UA) Urine Ketones Urine Blood Urine Nitrite Ur Leukocyte Esterase Urine RBC Urine WBC Ur Squamous Epith Cells Urine Bacteria Hyaline Casts COVID-19 (PETE) COVID-19 Clin Com Imaging Radiologist's Impressions: Impressions Chest X-Ray 09/17/20 20:18 IMPRESSION: At the time of the prior study some mild pulmonary vascular congestion was present which appears improved since the prior study. Tiny pleural effusions have resolved. No infiltrates, lung masses or pleural effusions are present at this time. IMPRESSION: Resolved changes of pulmonary vascular congestion. Cardiomegaly remains. 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 incr bili: w/u in progress REC: ; avoid nephrotoxins; DC planning will follow up as OP Status: Acute 85-year-old male with a past medical history of hypertension, hyperlipidemia, diabetes, CAD status post CABG, CHF with reduced EF, COPD, GERD, pulmonary hypertension, history of LBP be presented to the hospital with a chief complaint of low blood pressure. Hypotension: Patient asymptomatic. Likely in the setting of dehydration/recent increase in his Lasix dose. Hold the home antihypertensives for today. Fall precautions. Continue gentle IV fluids. Monitor for any signs of fluid overload. History of CHF: Currently stable. Will hold home diuretics for now Cardiology consult for further medication adjustments. CORA: Likely prerenal. Continue gentle fluids. Hold nephrotoxins and diuretics for today. Nephrology consult. Elevated bilirubin: Will obtain ultrasound. Patient had prior elevated T bili but currently slightly more elevated. Patient denies any abdominal complaints. Diabetes: Hold home medications. Will keep him on insulin sliding scale. Microscopic hematuria: Will defer to the a.m. team to repeat urinalysis after hydration to ensure improvement; outpatient urology follow-up. History of CAD: Continue home aspirin/statin. DVT prophylaxis: Lovenox Code status: Full code
[2020-09-18] MEDS: 0.9 % Sodium Chloride 1,000 ML 75 ML IVCONT (01:28)
[2020-09-18] MEDS: Enoxaparin Sodium 30 MG/0.3 ML SYRINGE SUBCUT (01:52)
--- NOTE | 2020-09-18 02:21 | PC.NURSE ---
This RN calling [facility], [facility] unable to take report at this time.
--- NOTE | 2020-09-18 02:38 | PC.NURSE ---
Report given to [facility] RN.
[2020-09-18 07:14] LABS: Glucose, Whole Blood 88 mg/dL (60-115)
[2020-09-18 07:22] LABS: Basophils Absolute Auto 0.1 X10*3/uL (0.0-0.2); Basophils Percent Auto 0.9 % (0-2); Eosinophils Absolute Auto 0.1 X10*3/uL (0.0-0.4); Eosinophils Percent Auto 2.3 % (0-4); Hematocrit 44.7 % (42-52); Hemoglobin 15.1 g/dl (14.0-18.0); Imm Gran Abs Auto 0.02 X10*3/uL (0.00-0.03); Imm Gran Pct Auto 0.4 % (0.0-0.4); Lymphocytes Absolute Auto 1.5 X10*3/uL (1.2-4.9); Lymphocytes Percent Auto 27.2 % (20-40); MANUAL DIFF FLAG SCAN; Mean Corpuscular HGB Conc 33.8 g/dl (31.0-36.0); Mean Corpuscular Hemoglobin 32.7 pg (27.0-33.0); Mean Corpuscular Volume 96.8 fL (80-98); Monocytes Absolute Auto 0.9 X10*3/uL (0.1-1.2); Monocytes Percent Auto 15.1 % (2-11); Neutrophils Absolute Auto 3.1 X10*3/uL (2.0-8.3); Neutrophils Percent Auto 54.1 % (45-73); PLT CLUMP 1; Red Blood Count 4.62 X10*6/uL (4.60-5.80); Red Cell Distribution Width 15.7 % (11.0-16.0); SCAN SMEAR FLAG 1
[2020-09-18 07:46] LABS: Platelet Count 119 X10*3/uL (160-400); SLIDE REVIEW VERIFIED; White Blood Count 5.6 X10*3/uL (4.8-10.8)
[2020-09-18 08:03] LABS: Alanine Aminotransferase 29 U/L (0-40); Albumin Level 3.9 g/dL (3.5-5.0); Alkaline Phosphatase 88 U/L (39-117); Aspartate Amino Transferase 26 U/L (5-37); Bilirubin Direct 0.8 mg/dL (0.0-0.5); Bilirubin Total 2.7 mg/dL (0.0-1.0); Total Protein 6.5 g/dL (6.5-8.0)
[2020-09-18 08:15] LABS: Anion Gap 17 (12-20); Blood Urea Nitrogen 51 mg/dL (9-16); Calcium 8.5 mg/dL (8.4-10.2); Carbon Dioxide 27 mmol/L (22-29); Chloride 95 mmol/L (96-108); Creatinine Clr Calc Pharmacy 21.4; Estimated Glomerular Filt Rate 29; Glucose Random 99 mg/dL (60-115); Potassium 3.4 mmol/L (3.3-5.1); Sodium 136 mmol/L (135-145)
[2020-09-18] MEDS: 0.9 % Sodium Chloride Flush 3 ML SYRINGE IVFLUSH ×2 (09:48→16:53)
--- NOTE | 2020-09-18 10:41 | PM.CNCAR ---
History of Present Illness History of Present Illness Date of Service: 09/18/20 Requesting physician: Mars Spicer Consult reason: other (Hypotension, acute kidney injury) Chief complaint: CORA Narrative: We are asked to see anginal in cardiology consultation today for his prior history of ischemic cardiomyopathy, severe advanced heart failure. Patient called yesterday to the office complaining of dizziness and was noted to have significantly low blood pressure at home. He was advised to come to the emergency room. Emergency room he was noted to be hypotensive and is noted to have acute kidney injury. Last admission within the last 2 weeks with decompensated congestive heart failure and was started on aggressive diuretics with metolazone every other day. He said he has been going to the bathroom a lot. History was obtained with help of central office installer. He then started noticing getting lightheaded and subsequently yesterday's blood pressure is extremely low. Since hospitalization is received gentle IV hydration, and all his medications have been withheld including diuretics and his neurohormonal modulation. He is currently not having any symptoms of heart failure. He says shortness of breath and leg edema have significantly improved. He is very comfortable. His blood pressure is improved and his lightheadedness is improved. No arrhythmias. He had been referred as an outpatient to electrophysiology for cardiac resynchronization therapy due to his left bundle-branch block and severe LV systolic dysfunction, however it was slightly delayed because of his overall health status. Review of Systems Constitutional: Constitutional: Denies body ache(s), Denies chills, Reports fatigue and Denies fever(s) Cardiovascular: Cardiovascular: Denies chest pain, Denies syncope, Reports lightheadedness, Denies Loss of Consciousness, Denies palpitations and Reports dyspnea on exertion Respiratory: Respiratory: Denies cough, Reports dyspnea on exertion and Denies wheezing Gastrointestinal: Gastrointestinal: Reports no additional gastrointestinal complaints Genitourinary: Genitourinary: Reports no additional male genitourinary complaints Musculoskeletal: Musculoskeletal: Reports no additional musculoskeletal complaints Neurologic: Reports system reviewed and no additional complaints, except as documented and Denies syncope Psychiatric: Psychiatric: Reports no additional psychiatric complaints Endocrine: Endocrine: Reports no additional endocrine complaints, Reports fatigue and Denies palpitations Hematologic/Lymphatic: Hematologic/Lymphatic: Reports no additional hematologic/lymphatic complaints Allergic/Immunologic: Allergic/Immunologic: Denies wheezing PMFSH Past Medical History Medical History CORA (acute kidney injury) 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 CAD (coronary artery disease) CAD (coronary artery disease) Chronic HFrEF (heart failure with reduced ejection fraction) Congestive heart failure COPD (chronic obstructive pulmonary disease) COPD (chronic obstructive pulmonary disease) Diabetes Diabetes mellitus GERD (gastroesophageal reflux disease) History of myocardial infarction Hyperlipidemia Hyperlipidemia Ischemic cardiomyopathy Ischemic cardiomyopathy LBBB (left bundle branch block) LBBB (left bundle branch block) Mitral regurgitation Non-rheumatic mitral regurgitation Nonrheumatic mitral valve regurgitation Pulmonary hypertension Family History Family History Father No problems noted. Mother No problems noted. Surgical History Surgical History Hx of CABG S/P CABG x 3 Social History Social History Household Members: Children Housing: Apartment Do you presently have visiting nurse or other home services: Yes Smoking Status: Former smoker Tobacco Type: Cigarette Smoked in Last 30 Days: No Patient Interested in Nicotine Replacement: No Patient Given Instructions on How to Stop Smoking: Yes Date Education Initiated: 09/18/20 Second Hand Smoke Exposure: No Use of substances other than those prescribed or required for medical reasons: No Have you been hit, kicked, punched, or otherwise hurt by someone within the past year? If so, by whom?: No Do you feel safe in your current relationship?: No Current Relationship Is there a partner from a previous relationship who is making you feel unsafe now?: No Are you made to feel afraid or neglected: No Advance Directives: No Advance Directives Information Provided: No Do you have thoughts of harming others: None Do you have a plan to hurt others: No Plan Recently lost weight without trying: No service: No Current occupational status: retired Meds Allergies Allergy/AdvReac Type Severity Reaction Status Date / Time No Known Allergies Allergy Unknown NOT Verified 09/08/20 14:24 APPLICABLE Active Medications: Current Medications Generic Name Dose Route Start Last Admin Trade Name Freq PRN Reason Stop Dose Admin Acetaminophen 650 mg 09/18/20 00:51 Acetaminophen 325 Mg Tablet PO Q6H PRN Pain, Mild (Pain Scale 1-3) Enoxaparin Sodium 30 mg 09/18/20 01:00 09/18/20 01:52 Enoxaparin Sodium 30 Mg/0.3 Ml Syringe SUBCUT 30 mg Q24H WINNIE Administration Sodium Chloride 1,000 mls @ 75 mls/hr 09/18/20 01:00 09/18/20 01:28 Ns IVCONT 75 mls/hr .[id number] WINNIE Administration Insulin Human Lispro 0 unit 09/18/20 07:30 09/18/20 09:44 Insulin Lispro 100 Unit/Ml 3 Ml Vial SUBCUT Not Given QIDACHS [facility] Protocol Senna 17.2 mg 09/18/20 00:51 Sennosides 8.6 Mg Tablet PO BEDTIME PRN Constipation Sodium Chloride 3 ml 09/18/20 08:00 09/18/20 09:48 0.9 % Sodium Chloride Flush 3 Ml Syringe IVFLUSH 3 ml QSHIFT [facility] Administration Home Medications Medication Instructions Recorded Confirmed Last Taken Type Combivent Respimat 1 puff INHALATION QID 08/06/20 09/18/20 08/06/20 History Stiolto Respimat 2 puff INHALATION DAILY 09/01/20 09/18/20 Unknown History Trulicity 0.75 mg SUBCUT QWEEK 09/01/20 09/18/20 Unknown History aspirin 81 mg PO DAILY 09/01/20 09/18/20 Unknown History atorvastatin 80 mg PO DAILY 09/01/20 09/18/20 Unknown History famotidine 20 mg PO DAILY 09/01/20 09/18/20 Unknown History furosemide 80 mg PO BID 09/01/20 09/18/20 Unknown History isosorbide mononitrate 30 mg PO DAILY 09/01/20 09/18/20 Unknown History metoprolol succinate 50 mg PO DAILY 09/01/20 09/18/20 Unknown History ondansetron HCl 8 mg PO BID PRN 09/01/20 09/18/20 Unknown History polyvinyl alcohol [Artificial 1 drp OPHTHALMIC (EYE) Q4H PRN 09/01/20 09/18/20 Unknown History Tears (polyvin alc)] ranolazine 500 mg PO BID 09/01/20 09/18/20 Unknown History cholecalciferol (vitamin D3) 1 cap PO QAM 09/18/20 09/18/20 Unknown History nitroglycerin 1 tab SUBLINGUAL NEEDED 09/18/20 09/18/20 Unknown History sacubitril-valsartan [Entresto] 1 tab PO BID 09/18/20 09/18/20 Unknown History Physical Exam Vital Signs: Vital Signs: Last Vital Signs Temp 97 F 09/18/20 07:05 Pulse 69 09/18/20 07:05 Resp 17 09/18/20 07:05 BP 94/50 L 09/18/20 07:05 Pulse Ox 92 09/18/20 07:05 Body Mass Index 24.0 Const: General: cooperative, comfortable, no acute distress, alert and awake Nutritional Appearance: thin Orientation/consciousness: patient oriented x3 HENMT: Head: Yes normocephalic and Yes atraumatic Neck: Neck: Yes trachea midline, Yes supple and Yes no JVD Resp: Effort & Inspection: normal respiratory effort Auscultation: clear to auscultation bilaterally Cardio: Jugular venous distension: no JVD Palpation: abnormal PMI displaced PMI and enlarged PMI Rate: regular rate Rhythm: regular rhythm Heart sounds: S1 normal heart sound present, S2 normal heart sound present and Murmur heart sound present systolic at the apex GI: Auscultation: normal bowel sounds Neuro: General: patient oriented x3 Results Labs and Meds Result diagrams: 09/18/20 07:00 09/18/20 07:00 Lab results: Laboratory Results - last 24 hr 09/17/20 09/17/20 09/17/20 20:32 20:32 20:32 WBC 6.0 RBC 4.82 D Hgb 15.7 D Hct 46.6 D MCV 96.7 MCH 32.6 MCHC 33.7 RDW 15.7 Plt Count 196 D MPV 10.4 Immature Gran % (Auto) 0.3 Neut % (Auto) 66.7 Lymph % (Auto) 19.0 L Bound[place] % (Auto) 12.2 H Eos % (Auto) 1.3 Baso % (Auto) 0.5 Lymph # (Auto) 1.1 L [place] # (Auto) 0.7 Eos # (Auto) 0.1 Baso # (Auto) 0.0 Abs Immat Gran (auto) 0.02 Absolute Neuts (auto) 4.0 Absolute Nucleated RBC 0.000 Nucleated RBC % (auto) 0.0 Smear Tech's Comments PT 13.6 H INR 1.1 Sodium Cancelled Potassium Cancelled Chloride Cancelled Carbon Dioxide Cancelled Anion Gap Cancelled BUN Cancelled Creatinine Cancelled Estim Creat Clear Calc Cancelled Estimated GFR Cancelled POC Glucose Random Glucose Cancelled Lactic Acid Calcium Cancelled Total Bilirubin Cancelled Direct Bilirubin Cancelled AST Cancelled ALT Cancelled Alkaline Phosphatase Cancelled Troponin I High Sens B-Natriuretic Peptide Total Protein Cancelled Albumin Cancelled TSH Urine Color Urine Appearance Urine pH Ur Specific [place] Urine Protein Urine Glucose (UA) Urine Ketones Urine Blood Urine Nitrite Ur Leukocyte Esterase Urine RBC Urine WBC Ur Squamous Epith Cells Urine Bacteria Hyaline Casts COVID-19 (PETE) [employer] 09/17/20 09/17/20 09/17/20 20:32 20:32 20:32 WBC RBC Hgb Hct MCV MCH MCHC RDW Plt Count MPV Immature Gran % (Auto) Neut % (Auto) Lymph % (Auto) Bound[place] % (Auto) Eos % (Auto) Baso % (Auto) Lymph # (Auto) Boundary # (Auto) Eos # (Auto) Baso # (Auto) Abs Immat Gran (auto) Absolute Neuts (auto) Absolute Nucleated RBC Nucleated RBC % (auto) Smear Tech's Comments PT INR Sodium Potassium Chloride Carbon Dioxide Anion Gap BUN Creatinine Estim Creat Clear Calc Estimated GFR POC Glucose Random Glucose Lactic Acid 1.3 Calcium Total Bilirubin Direct Bilirubin AST ALT Alkaline Phosphatase Troponin I High Sens 81.7 H D B-Natriuretic Peptide 2128 H Total Protein Albumin TSH Cancelled Urine Color Urine Appearance Urine pH Ur Specific [place] Urine Protein Urine Glucose (UA) Urine Ketones Urine Blood Urine Nitrite Ur Leukocyte Esterase Urine RBC Urine WBC Ur Squamous Epith Cells Urine Bacteria Hyaline Casts COVID-19 (PETE) [email or web address] 09/17/20 09/17/20 09/17/20 20:51 20:56 21:29 WBC RBC Hgb Hct MCV MCH MCHC RDW Plt Count MPV Immature Gran % (Auto) Neut % (Auto) Lymph % (Auto) Bound[place] % (Auto) Eos % (Auto) Baso % (Auto) Lymph # (Auto) Bound[place] # (Auto) Eos # (Auto) Baso # (Auto) Abs Immat Gran (auto) Absolute Neuts (auto) Absolute Nucleated RBC Nucleated RBC % (auto) Smear Tech's Comments PT INR Sodium 137 Potassium 4.2 Chloride 93 L Carbon Dioxide 25 Anion Gap 23 H BUN 58 H D Creatinine 2.59 H Estim Creat Clear Calc 17.7 Estimated GFR 24 POC Glucose Random Glucose 134 H Lactic Acid Calcium 9.7 Total Bilirubin 2.9 H Direct Bilirubin 0.9 H AST 23 ALT 33 Alkaline Phosphatase 98 Troponin I High Sens B-Natriuretic Peptide Total Protein 7.2 Albumin 4.3 TSH 0.65 Urine Color YELLOW Urine Appearance CLEAR Urine pH 6.0 Ur Specific [place] 1.015 Urine Protein NEG Urine Glucose (UA) NEG Urine Ketones NEG Urine Blood 1+ H Urine Nitrite NEG Ur Leukocyte Esterase NEG Urine RBC 5-9 H Urine WBC 0-2 Ur Squamous Epith Cells NONE Urine Bacteria TRACE Hyaline Casts 1-4 COVID-19 (PETE) Negative COVID-19 Clin Com See Note 09/18/20 09/18/20 09/18/20 00:14 07:00 07:00 WBC 5.6 RBC 4.62 Hgb 15.1 Hct 44.7 MCV 96.8 MCH 32.7 MCHC 33.8 RDW 15.7 Plt Count 119 L D MPV Not Reportable Immature Gran % (Auto) 0.4 Neut % (Auto) 54.1 Lymph % (Auto) 27.2 Boundary % (Auto) 15.1 H Eos % (Auto) 2.3 Baso % (Auto) 0.9 Lymph # (Auto) 1.5 Boundary # (Auto) 0.9 Eos # (Auto) 0.1 Baso # (Auto) 0.1 Abs Immat Gran (auto) 0.02 Absolute Neuts (auto) 3.1 Absolute Nucleated RBC 0.000 Nucleated RBC % (auto) 0.0 Smear Tech's Comments VERIFIED PT INR Sodium 136 Potassium 3.4 Chloride 95 L Carbon Dioxide 27 Anion Gap 17 BUN 51 H Creatinine 2.15 H Estim Creat Clear Calc 21.4 Estimated GFR 29 POC Glucose Random Glucose 99 Lactic Acid Calcium 8.5 D Total Bilirubin Direct Bilirubin AST ALT Alkaline Phosphatase Troponin I High Sens 67.1 H B-Natriuretic Peptide Total Protein Albumin TSH Urine Color Urine Appearance Urine pH Ur Specific [place] Urine Protein Urine Glucose (UA) Urine Ketones Urine Blood Urine Nitrite Ur Leukocyte Esterase Urine RBC Urine WBC Ur Squamous Epith Cells Urine Bacteria Hyaline Casts COVID-19 (PETE) COVID-19 Clin Com 09/18/20 09/18/20 07:00 07:07 WBC RBC Hgb Hct MCV MCH MCHC RDW Plt Count MPV Immature Gran % (Auto) Neut % (Auto) Lymph % (Auto) Bound[place] % (Auto) Eos % (Auto) Baso % (Auto) Lymph # (Auto) [place] # (Auto) Eos # (Auto) Baso # (Auto) Abs Immat Gran (auto) Absolute Neuts (auto) Absolute Nucleated RBC Nucleated RBC % (auto) Smear Tech's Comments PT INR Sodium Potassium Chloride Carbon Dioxide Anion Gap BUN Creatinine Estim Creat Clear Calc Estimated GFR POC Glucose 88 Random Glucose Lactic Acid Calcium Total Bilirubin 2.7 H Direct Bilirubin 0.8 H AST 26 ALT 29 Alkaline Phosphatase 88 Troponin I High Sens B-Natriuretic Peptide Total Protein 6.5 Albumin 3.9 TSH Urine Color Urine Appearance Urine pH Ur Specific [place] Urine Protein Urine Glucose (UA) Urine Ketones Urine Blood Urine Nitrite Ur Leukocyte Esterase Urine RBC Urine WBC Ur Squamous Epith Cells Urine Bacteria Hyaline Casts COVID-19 (PETE) COVID-19 Clin Com EKG shows normal sinus rhythm with left bundle-branch block Imaging Radiologist's impression: Impressions Chest X-Ray 09/17/20 20:18 IMPRESSION: At the time of the prior study some mild pulmonary vascular congestion was present which appears improved since the prior study. Tiny pleural effusions have resolved. No infiltrates, lung masses or pleural effusions are present at this time. IMPRESSION: Resolved changes of pulmonary vascular congestion. Cardiomegaly remains. Abdomen Ultrasound 09/18/20 02:24 IMPRESSION: Sludge in the gallbladder and a probable small 3 mm nonshadowing gallstone. No evidence of acute cholecystitis. No biliary ductal dilatation. Assessment and Plan (1) Hypotension: Status: Acute Hypotension due to aggressive diuresis and preload reduction patient with advanced ischemic cardiomyopathy leading to acute kidney injury. Patient is currently clinically dry. Continue gentle hydration with IV normal saline 50 cc an hour. Strict intake and output chart needs to be pursued. Also need to watch closely for development of heart failure. Hold all diuretics at this point in time. Also hold his neurohormonal modulation with Entresto and metoprolol therapy. Once his blood pressure improves will slowly introduce his neurohormonal modulation as well as diuretic regimen. Will probably need to use metolazone as need be as outpatient rather than as a standing dose. Will continue to follow with the patient. Continue to trend BMP. Intolerance to neurohormonal modulation and difficult to maintain fluid status as usually carries a poor prognosis. This was discussed with him. (2) Ischemic cardiomyopathy: Status: Acute Severe ischemic cardiomyopathy with secondary mitral regurgitation. He has underlying left bundle-branch block. His heart failure syndrome was very difficult to manage and has had recent decompensation. There is no revascularizable coronary disease. Continue Ranexa therapy. Continue aspirin therapy. Given under left bundle-branch block he may benefit with cardiac resynchronization therapy. This is in works. Will try to see if this can be done sooner rather than later, will improve with stroke volume and can help with his overall heart failure management. This was discussed with him, he is currently agreeable. (3) LBBB (left bundle branch block): Status: Acute
[2020-09-18 11:21] LABS: Glucose, Whole Blood 157 mg/dL (60-115)
[2020-09-18] MEDS: Insulin Lispro 100 UNIT/ML 3 ML VIAL SUBCUT ×2 (11:33→16:53)
--- NOTE | 2020-09-18 12:41 | HO.PM.IMPN ---
Subjective Subjective Date of Service: 09/18/20 Interval History: feeling ok Cardiovascular Cardiovascular: Reports no additional cardiovascular complaints Respiratory Respiratory: Reports no additional respiratory complaints Physical Exam Vital Signs: Vital Signs: Last Vital Signs Temp 97.4 F 09/18/20 11:23 Pulse 67 09/18/20 11:23 Resp 16 09/18/20 11:23 BP 93/52 L 09/18/20 11:23 Pulse Ox 97 09/18/20 11:23 Body Mass Index 24.0 General: AO X 3, no acute distress Resp: CTA bilateral CVS: S1,S2,RRR GI: soft, non tender, non distended Neuro: motor grossly intact Psych: appropriate affect Objective Data Current Medications Generic Name Dose Route Start Last Admin Trade Name Freq PRN Reason Stop Dose Admin Acetaminophen 650 mg 09/18/20 00:51 Acetaminophen 325 Mg Tablet PO Q6H PRN Pain, Mild (Pain Scale 1-3) Aspirin 81 mg 09/19/20 09:00 Aspirin Enteric Coated 81 Mg Tablet.Dr PO DAILY [facility] Atorvastatin Calcium 80 mg 09/19/20 09:00 Atorvastatin Calcium 80 Mg Tablet PO DAILY [facility] Enoxaparin Sodium 30 mg 09/18/20 01:00 09/18/20 01:52 Enoxaparin Sodium 30 Mg/0.3 Ml Syringe SUBCUT 30 mg Q24H [facility] Administration Sodium Chloride 1,000 mls @ 75 mls/hr 09/18/20 01:00 09/18/20 01:28 Ns IVCONT 75 mls/hr .[id number] [facility] Administration Insulin Human Lispro 0 unit 09/18/20 07:30 09/18/20 11:33 Insulin Lispro 100 Unit/Ml 3 Ml Vial SUBCUT 2 unit QIDACHS [facility] Administration Protocol Senna 17.2 mg 09/18/20 00:51 Sennosides 8.6 Mg Tablet PO BEDTIME PRN Constipation Sodium Chloride 3 ml 09/18/20 08:00 09/18/20 09:48 0.9 % Sodium Chloride Flush 3 Ml Syringe IVFLUSH 3 ml QSHIFT [facility] Administration Labs CBC & Chem 7: 09/18/20 07:00 09/18/20 07:00 Assessment and Plan (1) CORA (acute kidney injury): Status: Acute Assessment and Plan: 85M presented with low blood pressure found to have CORA Acute kidney injury and hypotension likely due to over-diuresis in setting of CHF with reduced ejection fraction and severe diastolic dysfunction. Holding diuretics and antihypertensives Gentle hydration Monitor BMP Follow-up cardiology, possible plan for AICD Diabetes Insulin Coronary disease Aspirin statin
[2020-09-18] MEDS: 0.9 % Sodium Chloride 1,000 ML 50 ML IVCONT (13:20)
--- NOTE | 2020-09-18 13:57 | P.CONNP_ITS ---
History of Present Illness Reason for Consult Consult date: 09/18/20 Reason for consult: cora Chief Complaint Chief complaint: CORA History of Present Illness Narrative: Asked to see pt to eval cora SCr icnr 1.3 (bsl) to 2.5 and on adm noted low BPs and ques dehydration. On ivf repeat scr 2.1 this am. Smith historian and inf obtained from EHR. PMH of hypertension, hyperlipidemia, diabetes, CAD status post CABG, systolic CHF, COPD, history of left bundle branch block, mitral regurgitation, pulmonary hypertension, and CKD3 Review of Systems Review of Systems Constitutional : No Weight loss, No Fever, No Chills, No Night Sweats, chronic fatigue ENT/Mouth : No Hearing loss, No Ear Pain, No Nasal Congestion, No Sinus Pain, No Hoarseness, No sore throat, No Rhinorrhea, No Swallowing Difficulty Eyes: No Eye Pain, No Swelling, No Redness, No Foreign Body, No Discharge, No Vision Changes Cardiovascular : No Chest Pain, No SOB, No Dyspnea on Exertion, complaining of chronic Orthopnea, No Edema, No Palpitations Respiratory : No Cough, No Sputum, No Wheezing, No Smoke Exposure, No Dyspnea Gastrointestinal : No Nausea, No Vomiting, No Diarrhea, No Constipation, No abdominal Pain, No Hematochezia, No Melena Genitourinary : no irregular bleeding, No Dysuria, No Urinary Frequency, No Hematuria, No Urinary Incontinence, No Urgency, No Flank Pain, No Urinary Flow Changes, No Hesitancy Musculoskeletal : No joint pain, No Myalgias, No Joint Swelling Skin : No Skin Lesions, No rash Neuro : No Weakness, No Numbness, No Paresthesias, No Loss of Consciousness, No Dizziness, No Headache Psych : No Anxiety/Panic, No Depression, No SI/HI/AH/VH, No Social Issues, Heme/Lymph: No Bruising, No Bleeding,No Lymphadenopathy Endocrine : No Polyuria, No Polydipsia, No Temperature Intolerance Constitutional: Denies body ache(s), Denies chills, Reports fatigue and Denies fever(s) Cardiovascular: Reports no additional cardiovascular complaints, Denies chest pain, Denies syncope, Reports lightheadedness, Denies Loss of Consciousness, Denies palpitations and Reports dyspnea on exertion Respiratory: Reports no additional respiratory complaints, Denies cough, Reports dyspnea on exertion and Denies wheezing Gastrointestinal: Reports no additional gastrointestinal complaints Genitourinary: Reports no additional male genitourinary complaints Musculoskeletal: Reports no additional musculoskeletal complaints Reports system reviewed and no additional complaints, except as documented and Denies syncope Psychiatric: Reports no additional psychiatric complaints Endocrine: Reports no additional endocrine complaints, Reports fatigue and Denies palpitations Hematologic/Lymphatic: Reports no additional hematologic/lymphatic complaints Allergic/Immunologic: Denies wheezing PMFSH Past Medical History Medical History CORA (acute kidney injury) 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 CAD (coronary artery disease) CAD (coronary artery disease) Chronic HFrEF (heart failure with reduced ejection fraction) Congestive heart failure COPD (chronic obstructive pulmonary disease) COPD (chronic obstructive pulmonary disease) Diabetes Diabetes mellitus GERD (gastroesophageal reflux disease) History of myocardial infarction Hyperlipidemia Hyperlipidemia Ischemic cardiomyopathy Ischemic cardiomyopathy LBBB (left bundle branch block) LBBB (left bundle branch block) Mitral regurgitation Non-rheumatic mitral regurgitation Nonrheumatic mitral valve regurgitation Pulmonary hypertension Family History Family History Father No problems noted. Mother No problems noted. Surgical History Surgical History Hx of CABG S/P CABG x 3 Social History Social History Household Members: Children Housing: Apartment Do you presently have visiting nurse or other home services: Yes Smoking Status: Former smoker Tobacco Type: Cigarette Smoked in Last 30 Days: No Patient Interested in Nicotine Replacement: No Patient Given Instructions on How to Stop Smoking: Yes Date Education Initiated: 09/18/20 Second Hand Smoke Exposure: No Use of substances other than those prescribed or required for medical reasons: No Have you been hit, kicked, punched, or otherwise hurt by someone within the past year? If so, by whom?: No Do you feel safe in your current relationship?: No Current Relationship Is there a partner from a previous relationship who is making you feel unsafe now?: No Are you made to feel afraid or neglected: No Advance Directives: No Advance Directives Information Provided: No Do you have thoughts of harming others: None Do you have a plan to hurt others: No Plan Recently lost weight without trying: No service: No Current occupational status: retired [employer] Allergies Allergy/AdvReac Type Severity Reaction Status Date / Time No Known Allergies Allergy Unknown NOT Verified 09/08/20 14:24 APPLICABLE Active Medications: Current Medications Generic Name Dose Route Start Last Admin Trade Name Freq PRN Reason Stop Dose Admin Acetaminophen 650 mg 09/18/20 00:51 Acetaminophen 325 Mg Tablet PO Q6H PRN Pain, Mild (Pain Scale 1-3) Aspirin 81 mg 09/19/20 09:00 Aspirin Enteric Coated 81 Mg Tablet.Dr PO DAILY [facility] Atorvastatin Calcium 80 mg 09/19/20 09:00 Atorvastatin Calcium 80 Mg Tablet PO DAILY [facility] Enoxaparin Sodium 30 mg 09/18/20 01:00 09/18/20 01:52 Enoxaparin Sodium 30 Mg/0.3 Ml Syringe SUBCUT 30 mg Q24H WINNIE Administration Sodium Chloride 1,000 mls @ 50 mls/hr 09/18/20 01:00 09/18/20 13:20 Ns IVCONT 50 mls/hr .Q20H WINNIE Administration Insulin Human Lispro 0 unit 09/18/20 07:30 09/18/20 11:33 Insulin Lispro 100 Unit/Ml 3 Ml Vial SUBCUT 2 unit QIDACHS [facility] Administration Protocol Senna 17.2 mg 09/18/20 00:51 Sennosides 8.6 Mg Tablet PO BEDTIME PRN Constipation Sodium Chloride 3 ml 09/18/20 08:00 09/18/20 09:48 0.9 % Sodium Chloride Flush 3 Ml Syringe IVFLUSH 3 ml QSHIFT [facility] Administration Home Medications Medication Instructions Recorded Confirmed Last Taken Type Combivent Respimat 1 puff INHALATION QID 08/06/20 09/18/20 08/06/20 History Stiolto Respimat 2 puff INHALATION DAILY 09/01/20 09/18/20 Unknown History Trulicity 0.75 mg SUBCUT DIOP 09/01/20 09/18/20 Unknown History aspirin 81 mg PO DAILY 09/01/20 09/18/20 Unknown History atorvastatin 80 mg PO DAILY 09/01/20 09/18/20 Unknown History famotidine 20 mg PO DAILY 09/01/20 09/18/20 Unknown History furosemide 160 mg PO BID 09/01/20 09/18/20 Unknown History isosorbide mononitrate 30 mg PO DAILY 09/01/20 09/18/20 Unknown History metoprolol succinate 50 mg PO DAILY 09/01/20 09/18/20 Unknown History ondansetron HCl 8 mg PO BID PRN 09/01/20 09/18/20 Unknown History polyvinyl alcohol [Artificial 1 drp OPHTHALMIC (EYE) Q4H PRN 09/01/20 09/18/20 Unknown History Tears (polyvin alc)] ranolazine 500 mg PO BID 09/01/20 09/18/20 Unknown History cholecalciferol (vitamin D3) 1 cap PO QAM 09/18/20 09/18/20 Unknown History nitroglycerin 1 tab SUBLINGUAL NEEDED 09/18/20 09/18/20 Unknown History sacubitril-valsartan [Entresto] 1 tab PO BID 09/18/20 09/18/20 Unknown History Physical Exam Vital Signs: Last Vital Signs Temp 97.4 F 09/18/20 11:23 Pulse 67 09/18/20 11:23 Resp 16 09/18/20 11:23 BP 93/52 L 09/18/20 11:23 Pulse Ox 97 09/18/20 11:23 Body Mass Index 24.0 Const General: cooperative, comfortable, no acute distress, alert and awake Nutritional Appearance: thin Orientation/consciousness: patient oriented x3 HENMT Head: Yes normocephalic and Yes atraumatic Neck Neck: Yes trachea midline, Yes supple and Yes no JVD Resp Effort & Inspection: normal respiratory effort Auscultation: clear to auscultation bilaterally Cardio Jugular venous distension: no JVD Palpation: abnormal PMI displaced PMI and enlarged PMI Rate: regular rate Rhythm: regular rhythm Heart sounds: S1 normal heart sound present, S2 normal heart sound present and Murmur heart sound present systolic at the apex GI Auscultation: normal bowel sounds Neuro General: patient oriented x3 Results Lab Results Result Diagrams: 09/18/20 07:00 09/18/20 07:00 Lab results: Chemistry 09/17/20 09/17/20 09/18/20 20:32 21:29 07:00 Sodium Cancelled 137 136 Potassium Cancelled 4.2 3.4 Carbon Dioxide Cancelled 25 27 BUN Cancelled 58 H D 51 H Creatinine Cancelled 2.59 H 2.15 H Calcium Cancelled 9.7 8.5 D Total Bilirubin Cancelled 2.9 H 09/18/20 07:00 Sodium Potassium Carbon Dioxide BUN Creatinine Calcium Total Bilirubin 2.7 H Hematology 09/17/20 09/18/20 20:32 07:00 WBC 6.0 5.6 Hgb 15.7 D 15.1 Plt Count 196 D 119 L D Urinalysis 09/17/20 20:51 Urine Color YELLOW Urine Appearance CLEAR Urine pH 6.0 Ur Specific [place] 1.015 Urine Protein NEG Urine Glucose (UA) NEG Urine Ketones NEG Urine Blood 1+ H Urine Nitrite NEG Ur Leukocyte Esterase NEG Urine RBC 5-9 H Urine WBC 0-2 Ur Squamous Epith Cells NONE Hyaline Casts 1-4 Assessment and Plan (1) CORA (acute kidney injury): Status: Acute 85M presented with low blood pressure found to have CORA 1.CORA: msot c/w renal hyppoerfusion/dehydartion but need to r/o other poss with sero/urine studeis and renal u/s; need to ceck FENa; cont ivf 2. CKD 3: age realted 3. incr bili: [place] REC: contivf; ceheck urine studies and sero as oredered; renal u/s; avoid nrtoxins; hold diuretics for now will fllow with team
--- NOTE | 2020-09-18 14:25 | MHC.CM.PN ---
IMM 08/21/20 Male 85 dx CORA He lives with Family. He uses a cane. [facility] is active. Pt has [employer] services for ADLs. Independent until recently per Pt report. DP home no services family transport.
[2020-09-18 16:29] LABS: Creatinine Urine 45.07 mg/dL
[2020-09-18 16:42] LABS: Total Protein Urine Random < 7 mg/dL (<12)
[2020-09-18 19:38] LABS: Glucose, Whole Blood 84 mg/dL (60-115)
[2020-09-19] MEDS: Enoxaparin Sodium 30 MG/0.3 ML SYRINGE SUBCUT
[2020-09-19] MEDS: 0.9 % Sodium Chloride Flush 3 ML SYRINGE IVFLUSH ×2 (00:06→15:37)
[2020-09-19 04:00] VITALS: BP 90/52; PULSE 81; RESP 18; TEMP 36.4; O2SAT 95
[2020-09-19 06:24] LABS: MANUAL DIFF FLAG NO
[2020-09-19 06:47] LABS: Basophils Absolute Auto 0.1 X10*3/uL (0.0-0.2); Basophils Percent Auto 1.1 % (0-2); Eosinophils Absolute Auto 0.2 X10*3/uL (0.0-0.4); Eosinophils Percent Auto 4.7 % (0-4); Hematocrit 44.3 % (42-52); Hemoglobin 14.9 g/dl (14.0-18.0); Imm Gran Abs Auto 0.01 X10*3/uL (0.00-0.03); Imm Gran Pct Auto 0.2 % (0.0-0.4); Lymphocytes Absolute Auto 1.6 X10*3/uL (1.2-4.9); Mean Corpuscular HGB Conc 33.6 g/dl (31.0-36.0); Mean Corpuscular Hemoglobin 32.2 pg (27.0-33.0); Mean Corpuscular Volume 95.7 fL (80-98); Mean Platelet Volume 10.8 fL (9.4-12.4); Monocytes Absolute Auto 0.7 X10*3/uL (0.1-1.2); Platelet Count 178 X10*3/uL (160-400); Red Blood Count 4.63 X10*6/uL (4.60-5.80); Red Cell Distribution Width 15.3 % (11.0-16.0); White Blood Count 4.5 X10*3/uL (4.8-10.8)
[2020-09-19 07:04] LABS: Anion Gap 12 (12-20); Blood Urea Nitrogen 38 mg/dL (9-16); Calcium 8.9 mg/dL (8.4-10.2); Carbon Dioxide 34 mmol/L (22-29); Chloride 95 mmol/L (96-108); Creatinine Clr Calc Pharmacy 32.1; Estimated Glomerular Filt Rate 47; Glucose Fasting 71 mg/dL (60-99); Potassium 3.2 mmol/L (3.3-5.1); Sodium 138 mmol/L (135-145)
[2020-09-19 07:30] VITALS: BP 93/46; PULSE 73; RESP 22; TEMP 36.5; O2SAT 96
[2020-09-19 07:34] LABS: Glucose, Whole Blood 74 mg/dL (60-115)
[2020-09-19] MEDS: 0.9 % Sodium Chloride 1,000 ML 50 ML IVCONT (09:06)
[2020-09-19] MEDS: Aspirin Enteric Coated 81 MG TABLET.DR PO (09:07)
[2020-09-19] MEDS: Atorvastatin Calcium 80 MG TABLET PO (09:07)
[2020-09-19] MEDS: Potassium Chloride ER 20 MEQ TAB.ER.PRT 40 MEQ PO (09:07)
--- NOTE | 2020-09-19 10:54 | P.PNCA_ITS ---
Subjective Subjective Date of Service: 09/19/20 Principal diagnosis: Acute kidney injury due to hypovolemia, ischemic cardiomyopathy Interval history: Patient is feeling well and denies any cardiac symptoms. No orthopnea, PND, leg edema. Overnight heart rate has remained stable. Kidney functions are with improved significantly. Blood pressure still on the lower side, no lightheadedness or syncope. Review of Systems Constitutional: Reports no additional constitutional complaints Cardiovascular: Reports no additional cardiovascular complaints Respiratory: Reports no additional respiratory complaints Gastrointestinal: Reports no additional gastrointestinal complaints Genitourinary: Reports no additional male genitourinary complaints Psychiatric: Reports no additional psychiatric complaints Physical Exam Vital Signs: Last Vital Signs Temp 97.7 F 09/19/20 07:30 Pulse 73 09/19/20 07:30 Resp 22 H 09/19/20 07:30 BP 93/46 L 09/19/20 07:30 Pulse Ox 96 09/19/20 07:30 Body Mass Index 24.0 Const General: cooperative, comfortable, no acute distress, alert and awake Nutritional Appearance: thin Orientation/consciousness: patient oriented x3 Neck Neck: Yes trachea midline, Yes supple and Yes no JVD Resp Effort & Inspection: normal respiratory effort Auscultation: clear to auscultation bilaterally Cardio Palpation: abnormal PMI displaced PMI Rate: regular rate Rhythm: regular rhythm Heart sounds: S1 normal heart sound present, S2 normal heart sound present and Murmur heart sound present Skin General skin exam: no rashes or lesions noted Neuro General: patient oriented x3 Extrem General: Yes no clubbing, cyanosis or edema Results Labs and Meds Result diagrams: 09/19/20 05:39 09/19/20 05:39 Lab results: Laboratory Results - last 24 hr 09/18/20 09/18/20 09/18/20 11:17 15:21 15:21 WBC RBC Hgb Hct MCV MCH MCHC RDW Plt Count MPV Immature Gran % (Auto) Neut % (Auto) Lymph % (Auto) [place] % (Auto) Eos % (Auto) Baso % (Auto) Lymph # (Auto) [place] # (Auto) Eos # (Auto) Baso # (Auto) Abs Immat Gran (auto) Absolute Neuts (auto) Absolute Nucleated RBC Nucleated RBC % (auto) Sodium Potassium Chloride Carbon Dioxide Anion Gap BUN Creatinine Estim Creat Clear Calc Estimated GFR POC Glucose 157 H Fasting Glucose Calcium U Random Total Protein Ur Random Sodium 82.0 Urine Creatinine 45.07 09/18/20 09/18/20 09/19/20 15:21 19:35 05:39 WBC 4.5 L RBC 4.63 Hgb 14.9 Hct 44.3 MCV 95.7 MCH 32.2 MCHC 33.6 RDW 15.3 Plt Count 178 D MPV 10.8 Immature Gran % (Auto) 0.2 Neut % (Auto) 44.0 L Lymph % (Auto) 35.0 [place] % (Auto) 15.0 H Eos % (Auto) 4.7 H Baso % (Auto) 1.1 Lymph # (Auto) 1.6 [place] # (Auto) 0.7 Eos # (Auto) 0.2 Baso # (Auto) 0.1 Abs Immat Gran (auto) 0.01 Absolute Neuts (auto) 2.0 Absolute Nucleated RBC 0.000 Nucleated RBC % (auto) 0.0 Sodium Potassium Chloride Carbon Dioxide Anion Gap BUN Creatinine Estim Creat Clear Calc Estimated GFR POC Glucose 84 Fasting Glucose Calcium U Random Total Protein < 7 Ur Random Sodium Urine Creatinine 09/19/20 09/19/20 05:39 07:23 WBC RBC Hgb Hct MCV MCH MCHC RDW Plt Count MPV Immature Gran % (Auto) Neut % (Auto) Lymph % (Auto) [place] % (Auto) Eos % (Auto) Baso % (Auto) Lymph # (Auto) [place] # (Auto) Eos # (Auto) Baso # (Auto) Abs Immat Gran (auto) Absolute Neuts (auto) Absolute Nucleated RBC Nucleated RBC % (auto) Sodium 138 Potassium 3.2 L Chloride 95 L Carbon Dioxide 34 H Anion Gap 12 BUN 38 H Creatinine 1.43 H Estim Creat Clear Calc 32.1 Estimated GFR 47 POC Glucose 74 Fasting Glucose 71 Calcium 8.9 U Random Total Protein Ur Random Sodium Urine Creatinine Imaging Radiologist's impression: Impressions Renal Ultrasound 09/18/20 14:48 IMPRESSION: Essentially unremarkable appearance of the kidneys. Progress Note: A&P Assessment and plan (1) Hypotension: Status: Acute Assessment and Plan: Hypotension and CORA related to hypovolemia related to diuresis. Clinically still appears to be on the dehydrated side. No signs of congestive heart failure. Continue IV hydration gently with IV normal saline for 1 more day. Follow-up BMP and BNP tomorrow. Closely watch for signs of heart failure. Will reintroduce low-dose metoprolol therapy today. Hold off on Entresto therapy till there is further normalization of his renal function and his blood pressure improves. (2) Ischemic cardiomyopathy: Status: Acute Assessment and Plan: Severe ischemic cardiomyopathy with recent worsening heart failure syndrome. He does have significant [place] coronary artery disease which is not amenable to revascularization. Continue aggressive medical therapy. Resume Ranexa therapy. Will slowly start metoprolol therapy to improve ischemia as well as for neuroho rmonal modulation. Hold off on Entresto therapy. He has underlying left bundle-branch block and requires cardiac resynchronization therapy which will be performed as an outpatient, patient doing clinically well at this point time. Will continue to follow with the patient. Fall Risk Details Current Medications: Current Medications Generic Name Dose Route Start Last Admin Trade Name Freq PRN Reason Stop Dose Admin Acetaminophen 650 mg 09/18/20 00:51 Acetaminophen 325 Mg Tablet PO Q6H PRN Pain, Mild (Pain Scale 1-3) Aspirin 81 mg 09/19/20 09:00 09/19/20 09:07 Aspirin Enteric Coated 81 Mg Tablet. PO 81 mg DAILY WINNIE Administration Atorvastatin Calcium 80 mg 09/19/20 09:00 09/19/20 09:07 Atorvastatin Calcium 80 Mg Tablet PO 80 mg DAILY WINNEI Administration Enoxaparin Sodium 30 mg 09/18/20 01:00 09/19/20 00:00 Enoxaparin Sodium 30 Mg/0.3 Ml Syringe SUBCUT 30 mg Q24H WINNIE Administration Sodium Chloride 1,000 mls @ 50 mls/hr 09/18/20 01:00 09/19/20 09:08 Ns IVCONT Infused .Q20H WINNIE Infusion Insulin Human Lispro 0 unit 09/18/20 07:30 09/19/20 07:48 Insulin Lispro 100 Unit/Ml 3 Ml Vial SUBCUT Not Given QIDACHS [facility] Protocol Senna 17.2 mg 09/18/20 00:51 Sennosides 8.6 Mg Tablet PO BEDTIME PRN Constipation Sodium Chloride 3 ml 09/18/20 08:00 09/19/20 07:49 0.9 % Sodium Chloride Flush 3 Ml Syringe IVFLUSH Not Given QSHIFT [facility] Time Spent With Patient Time: Total time spent is greater than 50% in coordination of care (as documented) at patient's floor/unit and/or counseling patient: Time with patient: 25 - 35 minutes
--- NOTE | 2020-09-19 10:56 | MHC.CM.PN ---
Per ROUNDS discussion, Patient is not yet medically cleared for dc (? of AICD, receiving gentle hydration, close renal follow). Home with resumption of [facility] & [employer] services is the goal for dc and CM will follow for possible need to adjust the dc plan.
--- NOTE | 2020-09-19 11:25 | HO.PM.IMPN ---
Subjective Subjective Date of Service: 09/19/20 Interval History: feeling well Cardiovascular Cardiovascular: Reports no additional cardiovascular complaints Gastrointestinal Gastrointestinal: Reports no additional gastrointestinal complaints Physical Exam Vital Signs: Vital Signs: Last Vital Signs Temp 97.7 F 09/19/20 07:30 Pulse 73 09/19/20 07:30 Resp 22 H 09/19/20 07:30 BP 93/46 L 09/19/20 07:30 Pulse Ox 96 09/19/20 07:30 Body Mass Index 24.0 General: AO X 3, no acute distress Resp: CTA bilateral CVS: S1,S2,RRR GI: soft, non tender, non distended Neuro: motor grossly intact Psych: appropriate affect Objective Data Current Medications Generic Name Dose Route Start Last Admin Trade Name Freq PRN Reason Stop Dose Admin Acetaminophen 650 mg 09/18/20 00:51 Acetaminophen 325 Mg Tablet PO Q6H PRN Pain, Mild (Pain Scale 1-3) Aspirin 81 mg 09/19/20 09:00 09/19/20 09:07 Aspirin Enteric Coated 81 Mg Tablet.Dr PO 81 mg DAILY WINNIE Administration Atorvastatin Calcium 80 mg 09/19/20 09:00 09/19/20 09:07 Atorvastatin Calcium 80 Mg Tablet PO 80 mg DAILY WINNIE Administration Enoxaparin Sodium 30 mg 09/18/20 01:00 09/19/20 00:00 Enoxaparin Sodium 30 Mg/0.3 Ml Syringe SUBCUT 30 mg Q24H WINNIE Administration Sodium Chloride 1,000 mls @ 50 mls/hr 09/18/20 01:00 09/19/20 09:08 Ns IVCONT Infused .Q20H WINNIE Infusion Insulin Human Lispro 0 unit 09/18/20 07:30 09/19/20 07:48 Insulin Lispro 100 Unit/Ml 3 Ml Vial SUBCUT Not Given QIDACHS [facility] Protocol Ranolazine 500 mg 09/19/20 11:30 Ranolazine 500 Mg Tab.Er.12h PO BID WINNIE Senna 17.2 mg 09/18/20 00:51 Sennosides 8.6 Mg Tablet PO BEDTIME PRN Constipation Sodium Chloride 3 ml 09/18/20 08:00 09/19/20 07:49 0.9 % Sodium Chloride Flush 3 Ml Syringe IVFLUSH Not Given QSHIFT [facility] Labs CBC & Chem 7: 09/19/20 05:39 09/19/20 05:39 Microbiology Microbiology Results: Microbiology 09/17/20 20:47 Blood - Venous Blood Culture - Preliminary No growth after 24 hours. 09/17/20 20:47 Blood - Venous Blood Culture - Preliminary No growth after 24 hours. Assessment and Plan (1) CORA (acute kidney injury): Status: Acute Assessment and Plan: 85M presented with low blood pressure found to have CORA Acute kidney injury and hypotension likely due to dehydration in setting of CHF with reduced ejection fraction and severe diastolic dysfunction. Holding diuretics and antihypertensives continue Gentle hydration Monitor BMP, continues to improve plan for resynchronization as outpatinet Diabetes Insulin Coronary disease Aspirin statin
[2020-09-19 11:51] LABS: Glucose, Whole Blood 132 mg/dL (60-115)
[2020-09-19 12:00] VITALS: BP 102/51; PULSE 73; RESP 12; TEMP 36.7; O2SAT 94
[2020-09-19] MEDS: Ranolazine 500 MG TAB.ER.12H PO ×2 (12:56→21:10)
[2020-09-19 15:16] VITALS: BP 97/55; PULSE 77; RESP 20; TEMP 36.2; O2SAT 95
[2020-09-19 16:02] LABS: Glucose, Whole Blood 207 mg/dL (60-115)
[2020-09-19] MEDS: Insulin Lispro 100 UNIT/ML 3 ML VIAL SUBCUT (17:31)
[2020-09-19 19:10] VITALS: BP 94/49; PULSE 59; RESP 20; TEMP 36.5; O2SAT 98
--- NOTE | 2020-09-19 19:43 | PM.PNNEP ---
Subjective Subjective Date of Service: 09/19/20 Principal diagnosis: Acute kidney injury due to hypovolemia, ischemic cardiomyopathy Interval history: seen and exmained. events noted Physical Exam Vital Signs: Vital Signs: Last Vital Signs Temp 97.7 F 09/19/20 19:10 Pulse 59 09/19/20 19:10 Resp 20 09/19/20 19:10 BP 94/49 L 09/19/20 19:10 Pulse Ox 98 09/19/20 19:10 Body Mass Index 24.0 Const: General: cooperative, comfortable, no acute distress, alert and awake Nutritional Appearance: thin Orientation/consciousness: patient oriented x3 HENMT: Head: Yes normocephalic and Yes atraumatic Neck: Neck: Yes trachea midline, Yes supple and Yes no JVD Resp: Effort & Inspection: normal respiratory effort Auscultation: clear to auscultation bilaterally Cardio: Jugular venous distension: no JVD Palpation: abnormal PMI displaced PMI and enlarged PMI Rate: regular rate Rhythm: regular rhythm Heart sounds: S1 normal heart sound present, S2 normal heart sound present and Murmur heart sound present systolic at the apex GI: Auscultation: normal bowel sounds Neuro: General: patient oriented x3 Objective Data Labs CBC & Chem 7: 09/19/20 05:39 09/19/20 05:39 Labs: Laboratory Results - last 24 hr 09/19/20 09/19/20 09/19/20 05:39 05:39 07:23 WBC 4.5 L RBC 4.63 Hgb 14.9 Hct 44.3 MCV 95.7 MCH 32.2 MCHC 33.6 RDW 15.3 Plt Count 178 D MPV 10.8 Immature Gran % (Auto) 0.2 Neut % (Auto) 44.0 L Lymph % (Auto) 35.0 [place] % (Auto) 15.0 H Eos % (Auto) 4.7 H Baso % (Auto) 1.1 Lymph # (Auto) 1.6 [place] # (Auto) 0.7 Eos # (Auto) 0.2 Baso # (Auto) 0.1 Abs Immat Gran (auto) 0.01 Absolute Neuts (auto) 2.0 Absolute Nucleated RBC 0.000 Nucleated RBC % (auto) 0.0 Sodium 138 Potassium 3.2 L Chloride 95 L Carbon Dioxide 34 H Anion Gap 12 BUN 38 H Creatinine 1.43 H Estim Creat Clear Calc 32.1 Estimated GFR 47 POC Glucose 74 Fasting Glucose 71 Calcium 8.9 09/19/20 09/19/20 11:20 15:57 WBC RBC Hgb Hct MCV MCH MCHC RDW Plt Count MPV Immature Gran % (Auto) Neut % (Auto) Lymph % (Auto) [place] % (Auto) Eos % (Auto) Baso % (Auto) Lymph # (Auto) [place] # (Auto) Eos # (Auto) Baso # (Auto) Abs Immat Gran (auto) Absolute Neuts (auto) Absolute Nucleated RBC Nucleated RBC % (auto) Sodium Potassium Chloride Carbon Dioxide Anion Gap BUN Creatinine Estim Creat Clear Calc Estimated GFR POC Glucose 132 H 207 H Fasting Glucose Calcium Microbiology Microbiology Results: Microbiology 09/17/20 20:47 Blood - Venous Blood Culture - Preliminary No growth after 24 hours. 09/17/20 20:47 Blood - Venous Blood Culture - Preliminary No growth after 24 hours. Assessment & Plan Assessment and plan (1) CORA (acute kidney injury): Status: Acute Assessment and Plan: 85M presented with low blood pressure found to have CORA 1.CORA: decr Scr c/w renal hyppoerfusion/dehydartion 2. CKD 3: age realted 3. incr bili: w/u [place] REC: cont ivf; ; avoid nrtoxins; cont ot hold diuretics for now will fllow with team Time Spent With Patient Time: Total time spent is greater than 50% in coordination of care (as documented) at patient's floor/unit and/or counseling patient:
[2020-09-19 20:00] LABS: Glucose, Whole Blood 110 mg/dL (60-115)
[2020-09-19 23:08] VITALS: BP 96/53; PULSE 80; RESP 20; TEMP 36.9; O2SAT 96
[2020-09-20] MEDS: Enoxaparin Sodium 30 MG/0.3 ML SYRINGE SUBCUT (00:56)
[2020-09-20] MEDS: 0.9 % Sodium Chloride 1,000 ML 50 ML IVCONT (03:39)
[2020-09-20 03:53] VITALS: BP 102/50; PULSE 89; RESP 18; TEMP 36.3; O2SAT 97
--- NOTE | 2020-09-20 05:16 | PC.NURSE ---
Addendum entered by Verenice Philip RN 09/20/20 05:48: Pt noted to have another 3 beat vtach. Pt assessed and stable. Will continue to monitor. Original Note: Pt noted to have a 3 beat vtach. Pt assessed and vs stable. Will continue to monitor.
[2020-09-20 06:43] LABS: MANUAL DIFF FLAG NO
[2020-09-20 06:58] LABS: Basophils Absolute Auto 0.1 X10*3/uL (0.0-0.2); Basophils Percent Auto 1.3 % (0-2); Eosinophils Absolute Auto 0.3 X10*3/uL (0.0-0.4); Eosinophils Percent Auto 6.1 % (0-4); Hematocrit 43.4 % (42-52); Hemoglobin 14.7 g/dl (14.0-18.0); Imm Gran Abs Auto 0.01 X10*3/uL (0.00-0.03); Imm Gran Pct Auto 0.2 % (0.0-0.4); Lymphocytes Absolute Auto 1.6 X10*3/uL (1.2-4.9); Lymphocytes Percent Auto 35.2 % (20-40); Mean Corpuscular HGB Conc 33.9 g/dl (31.0-36.0); Mean Corpuscular Hemoglobin 32.5 pg (27.0-33.0); Mean Corpuscular Volume 95.8 fL (80-98); Mean Platelet Volume 10.5 fL (9.4-12.4); Monocytes Absolute Auto 0.6 X10*3/uL (0.1-1.2); Monocytes Percent Auto 13.5 % (2-11); Neutrophils Percent Auto 43.7 % (45-73); Platelet Count 174 X10*3/uL (160-400); Red Blood Count 4.53 X10*6/uL (4.60-5.80); Red Cell Distribution Width 15.4 % (11.0-16.0); White Blood Count 4.6 X10*3/uL (4.8-10.8)
[2020-09-20 07:16] LABS: Anion Gap 14 (12-20); Blood Urea Nitrogen 29 mg/dL (9-16); Calcium 8.5 mg/dL (8.4-10.2); Carbon Dioxide 28 mmol/L (22-29); Chloride 100 mmol/L (96-108); Creatinine Clr Calc Pharmacy 44.2; Estimated Glomerular Filt Rate > 60; Glucose Fasting 75 mg/dL (60-99); Potassium 3.7 mmol/L (3.3-5.1); Sodium 138 mmol/L (135-145)
[2020-09-20 07:33] VITALS: BP 102/61; PULSE 76; RESP 17; TEMP 36.1; O2SAT 98
[2020-09-20 07:53] LABS: Glucose, Whole Blood 75 mg/dL (60-115)
[2020-09-20] MEDS: Aspirin Enteric Coated 81 MG TABLET.DR PO (08:14)
[2020-09-20] MEDS: Ranolazine 500 MG TAB.ER.12H PO ×2 (08:14→21:29)
[2020-09-20] MEDS: Atorvastatin Calcium 80 MG TABLET PO (08:14)
[2020-09-20 11:17] LABS: Glucose, Whole Blood 157 mg/dL (60-115)
--- NOTE | 2020-09-20 11:36 | P.PNIM_ITS ---
Subjective Subjective Date of Service: 09/20/20 Interval History: feeeling better Cardiovascular Cardiovascular: Reports no additional cardiovascular complaints Genitourinary Genitourinary: Reports no additional male genitourinary complaints Physical Exam Vital Signs: Vital Signs: Last Vital Signs Temp 97.0 F 09/20/20 07:33 Pulse 76 09/20/20 07:33 Resp 17 09/20/20 07:33 BP 102/61 09/20/20 07:33 Pulse Ox 98 09/20/20 07:33 Body Mass Index 24.0 General: AO X 3, no acute distress Resp: CTA bilateral CVS: S1,S2,RRR GI: soft, non tender, non distended Neuro: motor grossly intact Psych: appropriate affect Objective Data Current Medications Generic Name Dose Route Start Last Admin Trade Name Freq PRN Reason Stop Dose Admin Acetaminophen 650 mg 09/18/20 00:51 Acetaminophen 325 Mg Tablet PO Q6H PRN Pain, Mild (Pain Scale 1-3) Aspirin 81 mg 09/19/20 09:00 09/20/20 08:14 Aspirin Enteric Coated 81 Mg Tablet.Dr PO 81 mg DAILY WINNIE Administration Atorvastatin Calcium 80 mg 09/19/20 09:00 09/20/20 08:14 Atorvastatin Calcium 80 Mg Tablet PO 80 mg DAILY WINNIE Administration Enoxaparin Sodium 30 mg 09/18/20 01:00 09/20/20 00:56 Enoxaparin Sodium 30 Mg/0.3 Ml Syringe SUBCUT 30 mg Q24H WINNIE Administration Sodium Chloride 1,000 mls @ 50 mls/hr 09/18/20 01:00 09/20/20 03:39 Ns IVCONT 50 mls/hr .Q20H WINNIE Administration Insulin Human Lispro 0 unit 09/18/20 07:30 09/20/20 07:55 Insulin Lispro 100 Unit/Ml 3 Ml Vial SUBCUT Not Given QIDACHS [facility] Protocol Ranolazine 500 mg 09/19/20 12:00 09/20/20 08:14 Ranolazine 500 Mg Tab.Er.12h PO 500 mg BID WINNIE Administration Senna 17.2 mg 09/18/20 00:51 Sennosides 8.6 Mg Tablet PO BEDTIME PRN Constipation Sodium Chloride 3 ml 09/18/20 08:00 09/20/20 08:14 0.9 % Sodium Chloride Flush 3 Ml Syringe IVFLUSH Not Given QSHIFT [facility] Labs CBC & Chem 7: 09/20/20 06:00 09/20/20 06:00 Microbiology Microbiology Results: Microbiology 09/17/20 20:47 Blood - Venous Blood Culture - Preliminary No growth after 48 hours. 09/17/20 20:47 Blood - Venous Blood Culture - Preliminary No growth after 48 hours. Assessment and Plan (1) CORA (acute kidney injury): Status: Acute Assessment and Plan: 85M presented with low blood pressure found to have CORA Acute kidney injury and hypotension likely due to dehydration in setting of CHF with reduced ejection fraction and severe diastolic dysfunction. Holding diuretics and antihypertensives improved with gentle hydration, will dc IVF Monitor BMP plan for resynchronization as outpatinet cardiology following Diabetes Insulin Coronary disease Aspirin statin
[2020-09-20] MEDS: Insulin Lispro 100 UNIT/ML 3 ML VIAL SUBCUT ×2 (11:44→21:29)
[2020-09-20 12:00] VITALS: BP 99/48; PULSE 72; RESP 19; TEMP 36.1; O2SAT 98
--- NOTE | 2020-09-20 13:44 | PM.PNCARD ---
Subjective Subjective Date of Service: 09/20/20 Principal diagnosis: Acute kidney injury due to hypovolemia, ischemic cardiomyopathy Interval history: Patient is doing extremely well. Denies any chest pain, shortness of breath, orthopnea, PND, leg edema. Last night he has nausea which she says has improved today. Creatinine is improved almost back to baseline. Blood pressure is low normal Review of Systems Review of Systems Yes all other systems are reviewed and are negative Physical Exam Vital Signs: Last Vital Signs Temp 96.9 F 09/20/20 12:00 Pulse 72 09/20/20 12:00 Resp 19 09/20/20 12:00 BP 99/48 L 09/20/20 12:00 Pulse Ox 98 09/20/20 12:00 Body Mass Index 24.0 Const General: cooperative, comfortable, no acute distress, alert and awake Nutritional Appearance: thin Orientation/consciousness: patient oriented x3 Neck Neck: Yes trachea midline, Yes supple and Yes no JVD Resp Effort & Inspection: normal respiratory effort Auscultation: clear to auscultation bilaterally Cardio Palpation: abnormal PMI Rate: regular rate Rhythm: regular rhythm Heart sounds: S1 normal heart sound present, S2 normal heart sound present and Murmur heart sound present GI Auscultation: normal bowel sounds Skin General skin exam: no rashes or lesions noted Neuro General: patient oriented x3 Extrem General: Yes no clubbing, cyanosis or edema Results Labs and Meds Result diagrams: 09/20/20 06:00 09/20/20 06:00 Lab results: Laboratory Results - last 24 hr 09/19/20 09/19/20 09/20/20 15:57 19:55 06:00 WBC 4.6 L RBC 4.53 L Hgb 14.7 Hct 43.4 MCV 95.8 MCH 32.5 MCHC 33.9 RDW 15.4 Plt Count 174 MPV 10.5 Immature Gran % (Auto) 0.2 Neut % (Auto) 43.7 L Lymph % (Auto) 35.2 [place] % (Auto) 13.5 H Eos % (Auto) 6.1 H Baso % (Auto) 1.3 Lymph # (Auto) 1.6 [place] # (Auto) 0.6 Eos # (Auto) 0.3 Baso # (Auto) 0.1 Abs Immat Gran (auto) 0.01 Absolute Neuts (auto) 2.0 Absolute Nucleated RBC 0.000 Nucleated RBC % (auto) 0.0 Sodium Potassium Chloride Carbon Dioxide Anion Gap BUN Creatinine Estim Creat Clear Calc Estimated GFR POC Glucose 207 H 110 Fasting Glucose Calcium 09/20/20 09/20/20 09/20/20 06:00 07:31 11:11 WBC RBC Hgb Hct MCV MCH MCHC RDW Plt Count MPV Immature Gran % (Auto) Neut % (Auto) Lymph % (Auto) [place] % (Auto) Eos % (Auto) Baso % (Auto) Lymph # (Auto) [place] # (Auto) Eos # (Auto) Baso # (Auto) Abs Immat Gran (auto) Absolute Neuts (auto) Absolute Nucleated RBC Nucleated RBC % (auto) Sodium 138 Potassium 3.7 Chloride 100 Carbon Dioxide 28 Anion Gap 14 BUN 29 H Creatinine 1.04 Estim Creat Clear Calc 44.2 Estimated GFR > 60 POC Glucose 75 157 H Fasting Glucose 75 Calcium 8.5 Progress Note: A&P Assessment and plan (1) Hypotension: Status: Acute Assessment and Plan: Hypotension related to hypovolemia with decreased preload in a patient with severe cardiomyopathy, leading to acute kidney injury. This is significantly improved with gentle hydration. Slowly reintroduce his neurohormonal modulation with metoprolol 12.5 mg b.i.d. and Entresto 24/26 mg b.i.d.. Closely follow blood pressure. Advise adequate oral hydration. Hold off on diuretics today, will need to resume tomorrow if his creatinine and blood pressure remained stable. 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 Secondary mitral regurgitation left bundle-branch block noted. Will benefit with cardiac resynchronization therapy which will be performed as outpatient. Resume low-dose neurohormonal modulation and see how he tolerates this. Poor tolerance to neurohormonal modulation is usually consider poor prognostic sign for advanced heart failure. Will continue to monitor the patient. If he remains stable probably discharge tomorrow. Fall Risk Details Current Medications: Current Medications Generic Name Dose Route Start Last Admin Trade Name Freq PRN Reason Stop Dose Admin Acetaminophen 650 mg 09/18/20 00:51 Acetaminophen 325 Mg Tablet PO Q6H PRN Pain, Mild (Pain Scale 1-3) Aspirin 81 mg 09/19/20 09:00 09/20/20 08:14 Aspirin Enteric Coated 81 Mg Tablet. PO 81 mg DAILY [facility] Administration Atorvastatin Calcium 80 mg 09/19/20 09:00 09/20/20 08:14 Atorvastatin Calcium 80 Mg Tablet PO 80 mg DAILY [facility] Administration Enoxaparin Sodium 30 mg 09/18/20 01:00 09/20/20 00:56 Enoxaparin Sodium 30 Mg/0.3 Ml Syringe SUBCUT 30 mg Q24H [facility] Administration Insulin Human Lispro 0 unit 09/18/20 07:30 09/20/20 11:44 Insulin Lispro 100 Unit/Ml 3 Ml Vial SUBCUT 2 unit QIDACHS [facility] Administration Protocol Metoprolol Tartrate 12.5 mg 09/20/20 21:00 Metoprolol Tartrate 12.5 Mg Halftab PO BID [facility] Protocol Ranolazine 500 mg 09/19/20 12:00 09/20/20 08:14 Ranolazine 500 Mg Tab.Er.12h PO 500 mg BID [facility] Administration Sacubitril/Valsartan 1 tab 09/20/20 21:00 Sacubitril/Valsartan 24/ 1 Tab Tablet PO BID [facility] Protocol Senna 17.2 mg 09/18/20 00:51 Sennosides 8.6 Mg Tablet PO BEDTIME PRN Constipation Sodium Chloride 3 ml 09/18/20 08:00 09/20/20 08:14 0.9 % Sodium Chloride Flush 3 Ml Syringe IVFLUSH Not Given QSHIFT [facility] Time Spent With Patient Time: Total time spent is greater than 50% in coordination of care (as documented) at patient's floor/unit and/or counseling patient: Time with patient: 25 - 35 minutes
[2020-09-20 15:24] VITALS: BP 101/52; PULSE 79; RESP 18; TEMP 36.4; O2SAT 98
[2020-09-20 16:03] LABS: Glucose, Whole Blood 74 mg/dL (60-115)
[2020-09-20] MEDS: 0.9 % Sodium Chloride Flush 3 ML SYRINGE IVFLUSH ×2 (16:32→21:30)
--- NOTE | 2020-09-20 17:08 | PM.PNNEP ---
Subjective Subjective Date of Service: 09/21/20 Principal diagnosis: Acute kidney injury due to hypovolemia, ischemic cardiomyopathy Interval history: feeling better Physical Exam Vital Signs: Vital Signs: Last Vital Signs Temp 97.5 F 09/20/20 15:24 Pulse 79 09/20/20 15:24 Resp 18 09/20/20 15:24 BP 101/52 L 09/20/20 15:24 Pulse Ox 98 09/20/20 15:24 Body Mass Index 24.0 Const: General: no acute distress Chest: Chest palpation & inspection: normal inspection of the chest Cardio: Jugular venous distension: no JVD Objective Data Labs CBC & Chem 7: 09/21/20 06:24 09/21/20 06:24 Labs: Laboratory Results - last 24 hr 09/19/20 09/20/20 09/20/20 19:55 06:00 06:00 WBC 4.6 L RBC 4.53 L Hgb 14.7 Hct 43.4 MCV 95.8 MCH 32.5 MCHC 33.9 RDW 15.4 Plt Count 174 MPV 10.5 Immature Gran % (Auto) 0.2 Neut % (Auto) 43.7 L Lymph % (Auto) 35.2 [place] % (Auto) 13.5 H Eos % (Auto) 6.1 H Baso % (Auto) 1.3 Lymph # (Auto) 1.6 [place] # (Auto) 0.6 Eos # (Auto) 0.3 Baso # (Auto) 0.1 Abs Immat Gran (auto) 0.01 Absolute Neuts (auto) 2.0 Absolute Nucleated RBC 0.000 Nucleated RBC % (auto) 0.0 Sodium 138 Potassium 3.7 Chloride 100 Carbon Dioxide 28 Anion Gap 14 BUN 29 H Creatinine 1.04 Estim Creat Clear Calc 44.2 Estimated GFR > 60 POC Glucose 110 Fasting Glucose 75 Calcium 8.5 09/20/20 09/20/20 09/20/20 07:31 11:11 15:58 WBC RBC Hgb Hct MCV MCH MCHC RDW Plt Count MPV Immature Gran % (Auto) Neut % (Auto) Lymph % (Auto) [place] % (Auto) Eos % (Auto) Baso % (Auto) Lymph # (Auto) [place] # (Auto) Eos # (Auto) Baso # (Auto) Abs Immat Gran (auto) Absolute Neuts (auto) Absolute Nucleated RBC Nucleated RBC % (auto) Sodium Potassium Chloride Carbon Dioxide Anion Gap BUN Creatinine Estim Creat Clear Calc Estimated GFR POC Glucose 75 157 H 74 Fasting Glucose Calcium Microbiology Microbiology Results: Microbiology 09/17/20 20:47 Blood - Venous Blood Culture - Preliminary No growth after 48 hours. 09/17/20 20:47 Blood - Venous Blood Culture - Preliminary No growth after 48 hours. 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 incr bili: w/u in progress REC: cont ivf; ; avoid nrtoxins; cont to hold diuretics for now will follow with team Status: Acute Time Spent With Patient Time: Total time spent is greater than 50% in coordination of care (as documented) at patient's floor/unit and/or counseling patient:
[2020-09-20 18:58] VITALS: BP 106/63; PULSE 86; RESP 18; TEMP 36.6; O2SAT 98
[2020-09-20 20:21] LABS: Glucose, Whole Blood 164 mg/dL (60-115)
[2020-09-20 21:29] VITALS: BP 105/70; PULSE 89
[2020-09-20] MEDS: Metoprolol Tartrate 12.5 MG HALFTAB PO (21:29)
[2020-09-20] MEDS: Sacubitril/Valsartan 24/26 1 TAB TABLET PO (21:49)
[2020-09-21] VITALS (9 sets, daily range): BP systolic 84–118; BP diastolic 51–63; PULSE 71–85; RESP 16–20; TEMP 36.1–36.6; O2SAT 96–100
--- NOTE | 2020-09-21 01:06 | PC.NURSE ---
Addendum entered by Verenice Philip RN 09/21/20 06:25: Pt noted to have 5 beat vtach, assessed and stable. Will continue to monitor. Original Note: Pt noted to have 3 beat vtach, assessed and stable. Will continue to monitor.
[2020-09-21] MEDS: Enoxaparin Sodium 30 MG/0.3 ML SYRINGE SUBCUT (01:08)
[2020-09-21 07:11] LABS: MANUAL DIFF FLAG NO
[2020-09-21 07:16] LABS: Basophils Percent Auto 0.8 % (0-2); Eosinophils Absolute Auto 0.2 X10*3/uL (0.0-0.4); Eosinophils Percent Auto 3.7 % (0-4); Hematocrit 44.4 % (42-52); Hemoglobin 14.9 g/dl (14.0-18.0); Imm Gran Abs Auto 0.01 X10*3/uL (0.00-0.03); Imm Gran Pct Auto 0.2 % (0.0-0.4); Lymphocytes Absolute Auto 1.9 X10*3/uL (1.2-4.9); Lymphocytes Percent Auto 39.3 % (20-40); Mean Corpuscular HGB Conc 33.6 g/dl (31.0-36.0); Mean Corpuscular Hemoglobin 32.4 pg (27.0-33.0); Mean Corpuscular Volume 96.5 fL (80-98); Mean Platelet Volume 10.4 fL (9.4-12.4); Monocytes Absolute Auto 0.6 X10*3/uL (0.1-1.2); Monocytes Percent Auto 12.6 % (2-11); Neutrophils Absolute Auto 2.1 X10*3/uL (2.0-8.3); Neutrophils Percent Auto 43.4 % (45-73); Platelet Count 168 X10*3/uL (160-400); Red Cell Distribution Width 15.5 % (11.0-16.0); White Blood Count 4.9 X10*3/uL (4.8-10.8)
[2020-09-21 07:31] LABS: Glucose, Whole Blood 71 mg/dL (60-115)
[2020-09-21 07:33] LABS: Anion Gap 16 (12-20); Blood Urea Nitrogen 20 mg/dL (9-16); Calcium 8.7 mg/dL (8.4-10.2); Carbon Dioxide 26 mmol/L (22-29); Chloride 101 mmol/L (96-108); Estimated Glomerular Filt Rate > 60; Glucose Fasting 74 mg/dL (60-99); Potassium 3.9 mmol/L (3.3-5.1); Sodium 139 mmol/L (135-145)
[2020-09-21] MEDS: Aspirin Enteric Coated 81 MG TABLET.DR PO (08:53)
[2020-09-21] MEDS: 0.9 % Sodium Chloride Flush 3 ML SYRINGE IVFLUSH ×3 (08:53→20:23)
[2020-09-21] MEDS: Atorvastatin Calcium 80 MG TABLET PO (08:53)
[2020-09-21] MEDS: Ranolazine 500 MG TAB.ER.12H PO ×2 (08:53→20:22)
[2020-09-21] MEDS: Sacubitril/Valsartan 24/26 1 TAB TABLET PO ×2 (08:53→20:23)
[2020-09-21] MEDS: Metoprolol Tartrate 12.5 MG HALFTAB PO ×2 (08:53→20:22)
--- NOTE | 2020-09-21 11:09 | PC.NURSE ---
Addendum entered by Abundio Mireles RN 09/21/20 11:10: with cane, steady gait. Original Note: Pt ambulated greater than [address] hallway independently with staff on standby supervising. HR under control, no issues.
[2020-09-21 11:19] LABS: Glucose, Whole Blood 158 mg/dL (60-115)
--- NOTE | 2020-09-21 11:40 | PM.DS ---
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 incr bili: w/u in progress REC: ; avoid nephrotoxins; DC planning will follow up as OP (2) Ischemic cardiomyopathy: Status: Acute DS: Medications Discharge Medications Home Medications: Home Medications Medication Instructions Recorded Confirmed Combivent Respimat 1 puff INHALATION QID 08/06/20 09/18/20 Stiolto Respimat 2 puff INHALATION DAILY 09/01/20 09/18/20 Trulicity 0.75 mg SUBCUT DIOP 09/01/20 09/18/20 aspirin 81 mg PO DAILY 09/01/20 09/18/20 atorvastatin 80 mg PO DAILY 09/01/20 09/18/20 famotidine 20 mg PO DAILY 09/01/20 09/18/20 ondansetron HCl 8 mg PO BID PRN 09/01/20 09/18/20 polyvinyl alcohol [Artificial 1 drp OPHTHALMIC (EYE) Q4H PRN 09/01/20 09/18/20 Tears (polyvin alc)] ranolazine 500 mg PO BID 09/01/20 09/18/20 Entresto 1 tab PO BID 09/18/20 09/18/20 cholecalciferol (vitamin D3) 1 cap PO QAM 09/18/20 09/18/20 nitroglycerin 1 tab SUBLINGUAL NEEDED 09/18/20 09/18/20 Previous Rx's Medication Instructions Recorded furosemide 80 mg PO DAILY #0 tab 09/21/20 metoprolol tartrate 12.5 mg PO BID #60 tab 09/21/20 DS: Summary Hospital Course Hospital Course: date of encounter: 09/22/2020 patient was admitted for CORA in setting of diuretic use and hypotension in patient with ischemic cardiomyopathy. his diuretics and antihypertensives were held. he was given gentle hydration and bp and creatinine returned to normal. he was seen by cardiology. beta carmelo was restarted as lopressor 12.5mg bid and low dose entresto restarted. patient tolerated well. at discharge he will be on 25% dose of his previous lasix (160 bid, now 80mg daily). he will follow up for uptitration of meds and plan for cardioresynchronization. Time Spent with Patient Time attestation: Total time spent providing and/or coordinating discharge services: Discharge coordination time: Greater than 30 minutes Physical Exam Vital Signs: Vital Signs: Last Vital Signs Temp 97.0 F 09/21/20 08:00 Pulse 72 09/21/20 08:53 Resp 17 09/21/20 08:00 BP 98/51 L 09/21/20 08:53 Pulse Ox 97 09/21/20 08:00 Body Mass Index 24.0 General: AO X 3, no acute distress Resp: CTA bilateral CVS: S1,S2,RRR GI: soft, non tender, non distended Neuro: motor grossly intact Psych: appropriate affect DS: Data Data Completed and Pending Labs on day of discharge: Laboratory Results - last 24 hr 09/20/20 09/20/20 09/21/20 15:58 20:18 06:24 WBC 4.9 RBC 4.60 Hgb 14.9 Hct 44.4 MCV 96.5 MCH 32.4 MCHC 33.6 RDW 15.5 Plt Count 168 MPV 10.4 Immature Gran % (Auto) 0.2 Neut % (Auto) 43.4 L Lymph % (Auto) 39.3 [place] % (Auto) 12.6 H Eos % (Auto) 3.7 Baso % (Auto) 0.8 Lymph # (Auto) 1.9 [place] # (Auto) 0.6 Eos # (Auto) 0.2 Baso # (Auto) 0.0 Abs Immat Gran (auto) 0.01 Absolute Neuts (auto) 2.1 Absolute Nucleated RBC 0.000 Nucleated RBC % (auto) 0.0 Sodium Potassium Chloride Carbon Dioxide Anion Gap BUN Creatinine Estim Creat Clear Calc Estimated GFR POC Glucose 74 164 H Fasting Glucose Calcium 09/21/20 09/21/20 09/21/20 06:24 07:17 11:11 WBC RBC Hgb Hct MCV MCH MCHC RDW Plt Count MPV Immature Gran % (Auto) Neut % (Auto) Lymph % (Auto) [place] % (Auto) Eos % (Auto) Baso % (Auto) Lymph # (Auto) [place] # (Auto) Eos # (Auto) Baso # (Auto) Abs Immat Gran (auto) Absolute Neuts (auto) Absolute Nucleated RBC Nucleated RBC % (auto) Sodium 139 Potassium 3.9 Chloride 101 Carbon Dioxide 26 Anion Gap 16 BUN 20 H Creatinine 0.92 Estim Creat Clear Calc 50.0 Estimated GFR > 60 POC Glucose 71 158 H Fasting Glucose 74 Calcium 8.7 Preliminary micro results at discharge 09/17/20 20:47 Blood Culture - Preliminary Blood - Venous No growth after 48 hours. 09/17/20 20:47 Blood Culture - Preliminary Blood - Venous No growth after 48 hours. Discharge Plan Discharge Patient Disposition: Home, Self-Care Referrals: [facility] [Outside] Caroline Rudolph DO [Primary Care Provider] - Discharge Medications: New metoprolol tartrate 25 mg tablet 12.5 mg PO BID Qty: 60 RF: 0 Continued Combivent Respimat 20-100 mcg/actuation Mist 1 puff INHALATION QID RF: 0 polyvinyl alcohol [Artificial Tears (polyvin alc)] 1.4 % Drops 1 drp OPHTHALMIC (EYE) Q4H PRN (Reason: Dry Eye(S)) RF: 0 ondansetron HCl 4 mg Tablet 8 mg PO BID PRN (Reason: Nausea And Vomiting) RF: 0 Trulicity 0.75 mg/0.5 mL Pen Injector 0.75 mg SUBCUT DIOP RF: 0 atorvastatin 80 mg Tablet 80 mg PO DAILY RF: 0 ranolazine 500 mg Tablet Extended Release 12 Hr 500 mg PO BID RF: 0 aspirin 81 mg Tablet,Delayed Release (Dr/Ec) 81 mg PO DAILY RF: 0 famotidine 20 mg Tablet 20 mg PO DAILY RF: 0 Stiolto Respimat 2.5-2.5 mcg/actuation Mist 2 puff INHALATION DAILY RF: 0 nitroglycerin 0.4 mg tablet, sublingual 1 tab sublingual NEEDED RF: 0 cholecalciferol (vitamin D3) 50 mcg (2,000 unit) capsule 1 cap PO QAM RF: 0 Entresto 24-26 mg tablet 1 tab PO BID RF: 0 Changed furosemide 80 mg Tablet 80 mg PO DAILY Qty: 0 RF: 0 Discontinued isosorbide mononitrate 30 mg Tablet Extended Release 24 Hr 30 mg PO DAILY RF: 0 metoprolol succinate 50 mg Tablet Extended Release 24 Hr 50 mg PO DAILY RF: 0 metolazone 2.5 mg tablet 2.5 mg PO .QMWF Qty: 30 RF: 0 Discharge Orders: Discharge Order (Routine); Ordered 09/22/20 Ordered By: Mars Spicer Activity on Discharge: As tolerated Stand Alone Forms: Patient Portal Discharge page Care Plan Goals: recovery Health Concerns: chf Plan of Treatment: toprol changed to lopressor 12.5mg bid, meds changed as directed, follow up with cardiology
[2020-09-21] MEDS: Insulin Lispro 100 UNIT/ML 3 ML VIAL SUBCUT ×2 (11:42→16:48)
--- NOTE | 2020-09-21 11:51 | MHC.CM.PN ---
PT CLEARED FOR DC TODAY, HOME WITH RESUMPTION OF [facility] AND [facility]. [facility] NOTIFIED VIA [employer]. FAMILY TO TRANSPORT. UPDATED IMM PROVIDED.
--- NOTE | 2020-09-21 11:52 | PM.PNNEP ---
Subjective Subjective Date of Service: 09/21/20 Principal diagnosis: Acute kidney injury due to hypovolemia, ischemic cardiomyopathy Interval history: feeling better Physical Exam Vital Signs: Vital Signs: Last Vital Signs Temp 97.0 F 09/21/20 08:00 Pulse 72 09/21/20 08:53 Resp 17 09/21/20 08:00 BP 98/51 L 09/21/20 08:53 Pulse Ox 97 09/21/20 08:00 Body Mass Index 24.0 Const: General: no acute distress Chest: Chest palpation & inspection: normal inspection of the chest Cardio: Jugular venous distension: no JVD Objective Data Labs CBC & Chem 7: 09/21/20 06:24 09/21/20 06:24 Labs: Laboratory Results - last 24 hr 09/20/20 09/20/20 09/21/20 15:58 20:18 06:24 WBC 4.9 RBC 4.60 Hgb 14.9 Hct 44.4 MCV 96.5 MCH 32.4 MCHC 33.6 RDW 15.5 Plt Count 168 MPV 10.4 Immature Gran % (Auto) 0.2 Neut % (Auto) 43.4 L Lymph % (Auto) 39.3 [place] % (Auto) 12.6 H Eos % (Auto) 3.7 Baso % (Auto) 0.8 Lymph # (Auto) 1.9 [place] # (Auto) 0.6 Eos # (Auto) 0.2 Baso # (Auto) 0.0 Abs Immat Gran (auto) 0.01 Absolute Neuts (auto) 2.1 Absolute Nucleated RBC 0.000 Nucleated RBC % (auto) 0.0 Sodium Potassium Chloride Carbon Dioxide Anion Gap BUN Creatinine Estim Creat Clear Calc Estimated GFR POC Glucose 74 164 H Fasting Glucose Calcium 09/21/20 09/21/20 09/21/20 06:24 07:17 11:11 WBC RBC Hgb Hct MCV MCH MCHC RDW Plt Count MPV Immature Gran % (Auto) Neut % (Auto) Lymph % (Auto) [place] % (Auto) Eos % (Auto) Baso % (Auto) Lymph # (Auto) [place] # (Auto) Eos # (Auto) Baso # (Auto) Abs Immat Gran (auto) Absolute Neuts (auto) Absolute Nucleated RBC Nucleated RBC % (auto) Sodium 139 Potassium 3.9 Chloride 101 Carbon Dioxide 26 Anion Gap 16 BUN 20 H Creatinine 0.92 Estim Creat Clear Calc 50.0 Estimated GFR > 60 POC Glucose 71 158 H Fasting Glucose 74 Calcium 8.7 Microbiology Microbiology Results: Microbiology 09/17/20 20:47 Blood - Venous Blood Culture - Preliminary No growth after 48 hours. 09/17/20 20:47 Blood - Venous Blood Culture - Preliminary No growth after 48 hours. 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 incr bili: w/u in progress REC: ; avoid nephrotoxins; DC planning will follow up as OP Status: Acute Time Spent With Patient Time: Total time spent is greater than 50% in coordination of care (as documented) at patient's floor/unit and/or counseling patient:
--- NOTE | 2020-09-21 11:55 | HO.PM.IMPN ---
Subjective Subjective Date of Service: 09/21/20 Interval History: Feeling well Cardiovascular Cardiovascular: Reports no additional cardiovascular complaints Respiratory Respiratory: Reports no additional respiratory complaints Physical Exam Vital Signs: Vital Signs: Last Vital Signs Temp 97.0 F 09/21/20 08:00 Pulse 72 09/21/20 08:53 Resp 17 09/21/20 08:00 BP 98/51 L 09/21/20 08:53 Pulse Ox 97 09/21/20 08:00 Body Mass Index 24.0 General: AO X 3, no acute distress Resp: CTA bilateral CVS: S1,S2,RRR GI: soft, non tender, non distended Neuro: motor grossly intact Psych: appropriate affect Objective Data Current Medications Generic Name Dose Route Start Last Admin Trade Name Freq PRN Reason Stop Dose Admin Acetaminophen 650 mg 09/18/20 00:51 Acetaminophen 325 Mg Tablet PO Q6H PRN Pain, Mild (Pain Scale 1-3) Aspirin 81 mg 09/19/20 09:00 09/21/20 08:53 Aspirin Enteric Coated 81 Mg Tablet.Dr PO 81 mg DAILY WINNIE Administration Atorvastatin Calcium 80 mg 09/19/20 09:00 09/21/20 08:53 Atorvastatin Calcium 80 Mg Tablet PO 80 mg DAILY WINNIE Administration Enoxaparin Sodium 30 mg 09/18/20 01:00 09/21/20 01:08 Enoxaparin Sodium 30 Mg/0.3 Ml Syringe SUBCUT 30 mg Q24H WINNIE Administration Insulin Human Lispro 0 unit 09/18/20 07:30 09/21/20 11:42 Insulin Lispro 100 Unit/Ml 3 Ml Vial SUBCUT 2 unit QIDACHS [facility] Administration Protocol Metoprolol Tartrate 12.5 mg 09/20/20 21:00 09/21/20 08:53 Metoprolol Tartrate 12.5 Mg Halftab PO 12.5 mg BID WINNIE Administration Protocol Ranolazine 500 mg 09/19/20 12:00 09/21/20 08:53 Ranolazine 500 Mg Tab.Er.12h PO 500 mg BID WINNIE Administration Sacubitril/Valsartan 1 tab 09/20/20 21:00 09/21/20 08:53 Sacubitril/Valsartan 24/ 1 Tab Tablet PO 1 tab BID WINNIE Administration Protocol Senna 17.2 mg 09/18/20 00:51 Sennosides 8.6 Mg Tablet PO BEDTIME PRN Constipation Sodium Chloride 3 ml 09/18/20 08:00 09/21/20 08:53 0.9 % Sodium Chloride Flush 3 Ml Syringe IVFLUSH 3 ml QSHIFT [facility] Administration Labs CBC & Chem 7: 09/21/20 06:24 09/21/20 06:24 Microbiology Microbiology Results: Microbiology 09/17/20 20:47 Blood - Venous Blood Culture - Preliminary No growth after 48 hours. 09/17/20 20:47 Blood - Venous Blood Culture - Preliminary No growth after 48 hours. 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 incr bili: w/u in progress REC: ; avoid nephrotoxins; DC planning will follow up as OP Status: Acute Assessment and Plan: 85M presented with low blood pressure found to have CORA Acute kidney injury and hypotension likely due to dehydration in setting of CHF with reduced ejection fraction and severe diastolic dysfunction. Holding diuretics Was restarted on low-dose Lopressor 12.5 mg b.i.d. and low-dose Entresto Blood pressure after ambulation was 80/40, asymptomatic Will continue with gentle hydration Renal function improved to normal plan for resynchronization as outpatinet cardiology following Diabetes Insulin Coronary disease Aspirin statin
[2020-09-21] MEDS: 0.9 % Sodium Chloride 1,000 ML 50 ML IVCONT (12:22)
--- NOTE | 2020-09-21 12:32 | PM.PNCARD ---
Subjective Subjective Date of Service: 09/21/20 Principal diagnosis: Acute kidney injury due to hypovolemia, ischemic cardiomyopathy Interval history: Patient feeling extremely well. He was planning to be discharged today. However later after walking his blood pressure was low on the systolic 80 side. He continues to have no symptoms. Denies any shortness of breath orthopnea. Review of Systems Review of Systems Yes all other systems are reviewed and are negative Physical Exam Vital Signs: Last Vital Signs Temp 96.9 F 09/21/20 12:00 Pulse 75 09/21/20 12:00 Resp 18 09/21/20 12:00 BP 84/53 L 09/21/20 12:00 Pulse Ox 100 09/21/20 12:00 Body Mass Index 24.0 Const General: cooperative, comfortable, alert and awake Nutritional Appearance: thin Orientation/consciousness: patient oriented x3 Limitations: no limitations Neck Neck: Yes trachea midline, Yes supple and Yes no JVD Resp Effort & Inspection: normal respiratory effort Auscultation: clear to auscultation bilaterally Cardio Jugular venous distension: no JVD Palpation: abnormal PMI Heart sounds: S1 normal heart sound present and S2 normal heart sound present Skin General skin exam: no rashes or lesions noted Neuro General: patient oriented x3 Extrem General: Yes no clubbing, cyanosis or edema Psych Appearance: grossly normal Results Labs and Meds Result diagrams: 09/21/20 06:24 09/21/20 06:24 Lab results: Laboratory Results - last 24 hr 09/20/20 09/20/20 09/21/20 15:58 20:18 06:24 WBC 4.9 RBC 4.60 Hgb 14.9 Hct 44.4 MCV 96.5 MCH 32.4 MCHC 33.6 RDW 15.5 Plt Count 168 MPV 10.4 Immature Gran % (Auto) 0.2 Neut % (Auto) 43.4 L Lymph % (Auto) 39.3 [place] % (Auto) 12.6 H Eos % (Auto) 3.7 Baso % (Auto) 0.8 Lymph # (Auto) 1.9 [place] # (Auto) 0.6 Eos # (Auto) 0.2 Baso # (Auto) 0.0 Abs Immat Gran (auto) 0.01 Absolute Neuts (auto) 2.1 Absolute Nucleated RBC 0.000 Nucleated RBC % (auto) 0.0 Sodium Potassium Chloride Carbon Dioxide Anion Gap BUN Creatinine Estim Creat Clear Calc Estimated GFR POC Glucose 74 164 H Fasting Glucose Calcium 09/21/20 09/21/20 09/21/20 06:24 07:17 11:11 WBC RBC Hgb Hct MCV MCH MCHC RDW Plt Count MPV Immature Gran % (Auto) Neut % (Auto) Lymph % (Auto) [place] % (Auto) Eos % (Auto) Baso % (Auto) Lymph # (Auto) [place] # (Auto) Eos # (Auto) Baso # (Auto) Abs Immat Gran (auto) Absolute Neuts (auto) Absolute Nucleated RBC Nucleated RBC % (auto) Sodium 139 Potassium 3.9 Chloride 101 Carbon Dioxide 26 Anion Gap 16 BUN 20 H Creatinine 0.92 Estim Creat Clear Calc 50.0 Estimated GFR > 60 POC Glucose 71 158 H Fasting Glucose 74 Calcium 8.7 Progress Note: A&P Assessment and plan (1) Hypotension: Status: Acute Assessment and Plan: Blood pressure is improved but still remains orthostatic. Clinically appears to be euvolemic. Will give him 1 L over the next 24 hours of normal saline. Continue to watch for signs of congestive heart failure. If by tomorrow he is tolerating and his blood pressure is well controlled, can be discharged home. (2) Ischemic cardiomyopathy: Status: Acute Assessment and Plan: Severe ischemic cardiomyopathy with secondary severe mitral regurgitation as well as left bundle-branch block. Clinically today still appears to be euvolemic and well compensated. Overall tolerating his metoprolol and Entresto therapy. Will still hydrate him as above. Continue metoprolol and Entresto without holding. Perform orthostatic vital signs later today and tomorrow. If stable tomorrow will plan for discharge. Will require cardiac resynchronization therapy soon. Fall Risk Details Current Medications: Current Medications Generic Name Dose Route Start Last Admin Trade Name Freq PRN Reason Stop Dose Admin Acetaminophen 650 mg 09/18/20 00:51 Acetaminophen 325 Mg Tablet PO Q6H PRN Pain, Mild (Pain Scale 1-3) Aspirin 81 mg 09/19/20 09:00 09/21/20 08:53 Aspirin Enteric Coated 81 Mg Tablet. PO 81 mg DAILY WINNIE Administration Atorvastatin Calcium 80 mg 09/19/20 09:00 09/21/20 08:53 Atorvastatin Calcium 80 Mg Tablet PO 80 mg DAILY WINNIE Administration Enoxaparin Sodium 30 mg 09/18/20 01:00 09/21/20 01:08 Enoxaparin Sodium 30 Mg/0.3 Ml Syringe SUBCUT 30 mg Q24H WINNIE Administration Sodium Chloride 1,000 mls @ 50 mls/hr 09/21/20 12:00 09/21/20 12:22 Ns IVCONT 50 mls/hr .Q20H WINNIE Administration Insulin Human Lispro 0 unit 09/18/20 07:30 09/21/20 11:42 Insulin Lispro 100 Unit/Ml 3 Ml Vial SUBCUT 2 unit QIDACHS [facility] Administration Protocol Metoprolol Tartrate 12.5 mg 09/20/20 21:00 09/21/20 08:53 Metoprolol Tartrate 12.5 Mg Halftab PO 12.5 mg BID [facility] Administration Protocol Ranolazine 500 mg 09/19/20 12:00 09/21/20 08:53 Ranolazine 500 Mg Tab.Er.12h PO 500 mg BID WINNIE Administration Sacubitril/Valsartan 1 tab 09/20/20 21:00 09/21/20 08:53 Sacubitril/Valsartan 24/ 1 Tab Tablet PO 1 tab BID [facility] Administration Protocol Senna 17.2 mg 09/18/20 00:51 Sennosides 8.6 Mg Tablet PO BEDTIME PRN Constipation Sodium Chloride 3 ml 09/18/20 08:00 09/21/20 08:53 0.9 % Sodium Chloride Flush 3 Ml Syringe IVFLUSH 3 ml QSHIFT [facility] Administration Time Spent With Patient Time: Total time spent is greater than 50% in coordination of care (as documented) at patient's floor/unit and/or counseling patient: Time with patient: 25 - 35 minutes
[2020-09-21 16:27] LABS: Glucose, Whole Blood 179 mg/dL (60-115)
[2020-09-21 20:03] LABS: Glucose, Whole Blood 95 mg/dL (60-115)
[2020-09-21] MEDS: Sennosides 8.6 MG TABLET 17.2 MG PO (20:22)
--- NOTE | 2020-09-21 22:56 | PC.NURSE ---
pt received critical Bicarb 10 and BUN 123. ordered ABGs. Pt refused ABG, stating he is tired of getting stick for the day
[2020-09-22] MEDS: Enoxaparin Sodium 30 MG/0.3 ML SYRINGE SUBCUT (01:20)
[2020-09-22 03:59] VITALS: BP 90/41; PULSE 97; RESP 18; TEMP 36.5; O2SAT 96
[2020-09-22 07:24] LABS: Glucose, Whole Blood 69 mg/dL (60-115)
[2020-09-22 07:51] VITALS: BP 96/44; PULSE 92; RESP 16; TEMP 36.4; O2SAT 93
[2020-09-22] MEDS: 0.9 % Sodium Chloride 1,000 ML 50 ML IVCONT (08:15)
[2020-09-22] MEDS: Sacubitril/Valsartan 24/26 1 TAB TABLET PO (08:16)
[2020-09-22] MEDS: Atorvastatin Calcium 80 MG TABLET PO (08:16)
[2020-09-22] MEDS: Metoprolol Tartrate 12.5 MG HALFTAB PO (08:16)
[2020-09-22] MEDS: Aspirin Enteric Coated 81 MG TABLET.DR PO (08:16)
[2020-09-22] MEDS: Ranolazine 500 MG TAB.ER.12H PO (08:16)
--- NOTE | 2020-09-22 09:56 | MHC.CM.PN ---
Patient has been medically cleared for dc to home today to resume [facility], who has been notified of today's dc. CM to address second IMM with Patient momentarily and will provide him with original and place a copy on the chart.
--- NOTE | 2020-09-22 10:32 | PM.PNCARD ---
Subjective Subjective Date of Service: 09/22/20 Principal diagnosis: Acute kidney injury due to hypovolemia, ischemic cardiomyopathy Interval history: He states that he feels okay. No specific complaints. Review of Systems Review of Systems Yes all other systems are reviewed and are negative Cardiovascular: Reports as per HPI, Reports no additional cardiovascular complaints, Denies acrocyanosis, Denies cool extremities, Denies painful fingertips, Denies chest pain, Denies chest pain at rest, Denies diaphoresis, Denies syncope, Denies irregular heart rhythm, Denies claudication, Denies leg edema, Denies lightheadedness, Denies palpitations and Denies dyspnea Respiratory: Denies dyspnea Denies syncope Endocrine: Denies palpitations Physical Exam Vital Signs: Last Vital Signs Temp 97.5 F 09/22/20 07:51 Pulse 92 09/22/20 07:51 Resp 16 09/22/20 07:51 BP 96/44 L 09/22/20 07:51 Pulse Ox 93 09/22/20 07:51 Body Mass Index 24.0 Const General: cooperative, comfortable and no acute distress Orientation/consciousness: patient oriented x3 HENMT Other: Unremarkable Neck Neck: Yes normal visual inspection Chest Chest palpation & inspection: normal inspection of the chest Resp Auscultation: clear to auscultation bilaterally, no crackles and no wheezes Cardio Jugular venous distension: no JVD Palpation: normal PMI Heart sounds: S1 normal heart sound present, S2 normal heart sound present, no gallops, no murmurs and no rubs GI Palpation (GI): Soft to palpation Back/Spine/Pelvis Other: unremarkable Skin General skin exam: no rashes or lesions noted Neuro General: patient oriented x3 Extrem General: Yes no clubbing, cyanosis or edema Psych Mental Status: mental status grossly normal Results Labs and Meds Result diagrams: 09/21/20 06:24 09/21/20 06:24 Lab results: Laboratory Results - last 24 hr 09/21/20 09/21/20 09/21/20 11:11 16:01 19:58 POC Glucose 158 H 179 H 95 09/22/20 07:17 POC Glucose 69 Progress Note: A&P Assessment and plan (1) Ischemic cardiomyopathy: Status: Acute (2) Acute on chronic systolic (congestive) heart failure: Status: Acute (3) Atherosclerotic cardiovascular disease: Status: Acute (4) LBBB (left bundle branch block): Status: Acute (5) Hypotension: Status: Acute Assessment and Plan: Yesterday, he was supposed to get discharged but was kept overnight because of low blood pressure. He has gotten some IV fluids. He states that he feels fine. Still blood pressure on the lower side but no dizziness or presyncope type symptoms. May be discharged. He is on dose of Entresto and beta-blockers. However, if blood pressure will not allow may not be able to take even these. Will need close follow-up in the office upon discharge. Appointment noted for this tuesday with Venessa Palomo NP. Time Spent With Patient Time: Total time spent is greater than 50% in coordination of care (as documented) at patient's floor/unit and/or counseling patient: Time with patient: less than 15 minutes
== END 2020-09-22 10:20 | disposition home health service (06) | DRG 315 ==
LOC: HO.ED 19:46 → HO.EDOVER 09-18 01:09 → HO.IMC 09-18 02:08
PROVIDERS: Internal Medicine Nephrology; Admitting Provider Hospitalist; Emergency Provider Emergency Medicine; PCP Family Medicine; Visit Provider Internal Medicine
DX: I95.9 Hypotension, unspecified (principal); N17.9 Acute kidney failure, unspecified; I25.5 Ischemic cardiomyopathy; I44.7 Left bundle-branch block, unspecified; E86.0 Dehydration; K21.9 Gastro-esophageal reflux disease without esophagitis; I25.10 Atherosclerotic heart disease of native coronary artery without angina pectoris; E11.22 Type 2 diabetes mellitus with diabetic chronic kidney disease; R31.29 Other microscopic hematuria; T50.2X5A Adverse effect of carbonic-anhydrase inhibitors, benzothiadiazides and other diuretics, initial encounter; Y92.9 Unspecified place or not applicable; E78.5 Hyperlipidemia, unspecified; I34.0 Nonrheumatic mitral (valve) insufficiency; N18.30 Chronic kidney disease, stage 3 unspecified; Z20.822 Contact with and (suspected) exposure to COVID-19; Z87.891 Personal history of nicotine dependence; Z95.1 Presence of aortocoronary bypass graft; Z79.82 Long term (current) use of aspirin; Z79.899 Other long term (current) drug therapy
CPT/HCPCS: 36415; 71045; 76705; 76775; 80048; 80076; 81001; 82947; 83605; 83880; 84156; 84300; 84443; 84484; 85025; 85610; 87040; 87635; 93005; 99285; J1650

== ENCOUNTER 2020-10-03 11:04 | Inpatient (IN) | payer OTHER, SELFPAY ==
[2020-10-03] VITALS (9 sets, daily range): BP systolic 84–110; BP diastolic 54–80; PULSE 67–82; RESP 12–26; TEMP 36.2–36.6; O2SAT 95–99; BMI 22.3; BMI 23.3
--- NOTE | ~2020-10-03 | XR_ITS ---
EXAMINATION: XR CHEST CLINICAL INFORMATION: Chest pain COMPARISON: Previous chest x-ray 09/17/2020 TECHNIQUE: Frontal view of the chest was obtained. FINDINGS: The cardiac silhouette is enlarged but stable. There are post-CABG changes. Hilar and mediastinal contours are unremarkable. The lungs are clear. There is a new small left pleural effusion. There is no right pleural effusion. There is no pneumothorax. Bony structures are unremarkable. XR/XR chest 1V IMPRESSION: Stable enlargement of cardiac silhouette. New small left pleural effusion.
--- NOTE | 2020-10-03 11:17 | ECG_ITS ---
Test Reason : CHEST PAIN Blood Pressure : / mmHG Vent. Rate : 079 BPM Atrial Rate : 079 BPM P-R Int : 146 ms QRS Dur : 154 ms QT Int : 456 ms P-R-T Axes : 048 063 111 degrees QTc Int : 522 ms Normal sinus rhythm Left bundle branch block Abnormal ECG When compared with ECG of 17-SEP-2020 19:58, QRS axis Shifted right Referred By: Shiraz Ross Electronically Signed By:KELSEY WHARTON MD
--- NOTE | 2020-10-03 11:22 | ED.CHESTPAIN ---
HPI - Chest Pain General Chief Complaint: Chest Pain Stated Complaint: Chest Pain Time Seen by Provider: 10/03/20 11:17 History of Present Illness HPI narrative: This is a 85 years old male presented to the emergency department via ambulance with a chief complaint of chest pain, weakness,near syncopal episode. Denies any fever, chills, cough. He has history of coronary artery disease, congestive heart failure, COPD, diabetes ,cardiomyopathy MD complaint: chest pain Pertinent past history: coronary artery disease Onset (ago): hour(s) Onset: during rest Pain location: substernal Pain radiation: none Severity: mild Quality: aching Risk Factors Coronary artery disease risk factors: diabetes Related Data Home Medications Medication Instructions Recorded Confirmed Combivent Respimat 1 puff INHALATION QID 08/06/20 09/18/20 Stiolto Respimat 2 puff INHALATION DAILY 09/01/20 09/18/20 Trulicity 0.75 mg SUBCUT DIOP 09/01/20 09/18/20 aspirin 81 mg PO DAILY 09/01/20 09/18/20 atorvastatin 80 mg PO DAILY 09/01/20 09/18/20 famotidine 20 mg PO DAILY 09/01/20 09/18/20 ondansetron HCl 8 mg PO BID PRN 09/01/20 09/18/20 polyvinyl alcohol [Artificial 1 drp OPHTHALMIC (EYE) Q4H PRN 09/01/20 09/18/20 Tears (polyvin alc)] ranolazine 500 mg PO BID 09/01/20 09/18/20 Entresto 1 tab PO BID 09/18/20 09/18/20 cholecalciferol (vitamin D3) 1 cap PO QAM 09/18/20 09/18/20 nitroglycerin 1 tab SUBLINGUAL NEEDED 09/18/20 09/18/20 Previous Rx's Medication Instructions Recorded furosemide 80 mg PO DAILY #0 tab 09/21/20 metoprolol tartrate 12.5 mg PO BID #60 tab 09/21/20 Allergies Allergy/AdvReac Type Severity Reaction Status Date / Time No Known Allergies Allergy Unknown NOT Verified 10/03/20 11:18 APPLICABLE Review of Systems Review of Systems: Yes all other systems are reviewed and are negative Cardiovascular: Cardiovascular: Reports no additional cardiovascular complaints Respiratory: Respiratory: Reports no additional respiratory complaints Gastrointestinal: Gastrointestinal: Reports no additional gastrointestinal complaints Neurologic: Reports system reviewed and no additional complaints, except as documented [facility] Past Medical History Medical History CORA (acute kidney injury) 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 CAD (coronary artery disease) CAD (coronary artery disease) Chronic HFrEF (heart failure with reduced ejection fraction) Congestive heart failure COPD (chronic obstructive pulmonary disease) COPD (chronic obstructive pulmonary disease) Diabetes Diabetes mellitus GERD (gastroesophageal reflux disease) History of myocardial infarction Hyperlipidemia Hyperlipidemia Ischemic cardiomyopathy Ischemic cardiomyopathy LBBB (left bundle branch block) LBBB (left bundle branch block) Mitral regurgitation Non-rheumatic mitral regurgitation Nonrheumatic mitral valve regurgitation Pulmonary hypertension Surgical History Hx of CABG S/P CABG x 3 Family History Family History Father No problems noted. Mother No problems noted. Social History Social History Household Members: Children Housing: Apartment Smoking Status: Former smoker Tobacco Type: Cigarette Second Hand Smoke Exposure: No Advance Directives: No service: No Current occupational status: retired Physical Exam Vital Signs: Vital Signs: Last Vital Signs Temp 97.1 F 10/03/20 12:47 Pulse 72 10/03/20 14:10 Resp 12 10/03/20 14:10 BP 110/62 10/03/20 14:10 Pulse Ox 97 10/03/20 14:10 Body Mass Index 22.3 Const: General: cooperative and comfortable Orientation/consciousness: oriented to person, oriented to place, oriented to time and patient oriented x3 HENMT: Head: Yes normal to inspection and Yes No palpable skull fracture present Eyes: General: appearance normal, both eyes and all related structures Neck: Neck: Yes normal visual inspection and Yes full ROM Chest: Chest palpation & inspection: normal inspection of the chest Resp: Auscultation: clear to auscultation bilaterally Cardio: Jugular venous distension: no JVD Rate: regular rate GI: Inspection: Yes normal to inspection Palpation (GI): Soft to palpation, nontender and no guarding Skin: General skin exam: no rashes or lesions noted and elasticity normal Neuro: General: oriented to person, oriented to place, oriented to time and patient oriented x3 Extrem: General: Yes normal to inspection and Yes full ROM Course Reevaluation(s) Time: 14:27 Reevaluation #2: He is feeling better at this time his blood pressure was noted by me, he has a history of chronic hypotension on September 21 his blood pressure was 97/ 51 on September 22 was 90/41 I did give him 1 L of fluids his blood pressure is better. I do not think this patient is septic he is afebrile his lactic acid is 2.2 which could be due to poor peripheral perfusion given his cardiomyopathy; we did anyway blood culture. MDM - Chest Pain Lab Data Result diagrams: 10/03/20 12:47 10/03/20 12:47 Labs: Lab Results 10/03/20 10/03/20 10/03/20 Range/Units 12:47 12:47 12:47 WBC 5.1 (4.8-10.8) X10*3/uL RBC 3.63 L D (4.60-5.80) X10*6/uL Hgb 12.0 L (14.0-18.0) g/dl Hct 36.2 L (42-52) % MCV 99.7 H (80-98) fL MCH 33.1 H (27.0-33.0) pg MCHC 33.1 (31.0-36.0) g/dl RDW 16.9 H (11.0-16.0) % Plt Count 151 L (160-400) X10*3/uL MPV 11.6 (9.4-12.4) fL Immature Gran % (Auto) 0.4 (0.0-0.4) % Neut % (Auto) 76.6 H (45-73) % Lymph % (Auto) 10.0 L (20-40) % [place] % (Auto) 11.4 H (2-11) % Eos % (Auto) 1.0 (0-4) % Baso % (Auto) 0.6 (0-2) % Lymph # (Auto) 0.5 L (1.2-4.9) X10*3/uL [place] # (Auto) 0.6 (0.1-1.2) X10*3/uL Eos # (Auto) 0.1 (0.0-0.4) X10*3/uL Baso # (Auto) 0.0 (0.0-0.2) X10*3/uL Abs Immat Gran (auto) 0.02 (0.00-0.03) X10*3/uL Absolute Neuts (auto) 3.9 (2.0-8.3) X10*3/uL Absolute Nucleated RBC 0.000 (0.0-0.012) X10*3/uL Nucleated RBC % (auto) 0.0 (0.0-0.2) /100WBC Smear Tech's Comments VERIFIED PT 14.4 H (10.8-13.0) SEC INR 1.2 H (0.9-1.1) APTT 30.8 (24.1-38.0) SEC Sodium 139 (135-145) mmol/L Potassium 5.0 D (3.3-5.1) mmol/L Chloride 105 (96-108) mmol/L Carbon Dioxide 25 (22-29) mmol/L Anion Gap 14 (12-20) BUN 31 H D (9-16) mg/dL Creatinine 1.24 (0.5-1.4) mg/dL Estim Creat Clear Calc 36.9 Estimated GFR 56 Random Glucose 166 H D (60-115) mg/dL Lactic Acid (0.5-2.0) mmol/L Calcium 8.4 (8.4-10.2) mg/dL Total Bilirubin 1.7 H (0.0-1.0) mg/dL AST 29 (5-37) U/L ALT 65 H (0-40) U/L Alkaline Phosphatase 82 (39-117) U/L Troponin I High Sens (<3.5-35.0) ng/L Total Protein 5.4 L (6.5-8.0) g/dL Albumin 3.5 (3.5-5.0) g/dL 10/03/20 10/03/20 Range/Units 12:47 13:11 WBC (4.8-10.8) X10*3/uL RBC (4.60-5.80) X10*6/uL Hgb (14.0-18.0) g/dl Hct (42-52) % MCV (80-98) fL MCH (27.0-33.0) pg MCHC (31.0-36.0) g/dl RDW (11.0-16.0) % Plt Count (160-400) X10*3/uL MPV (9.4-12.4) fL Immature Gran % (Auto) (0.0-0.4) % Neut % (Auto) (45-73) % Lymph % (Auto) (20-40) % [place] % (Auto) (2-11) % Eos % (Auto) (0-4) % Baso % (Auto) (0-2) % Lymph # (Auto) (1.2-4.9) X10*3/uL [place] # (Auto) (0.1-1.2) X10*3/uL Eos # (Auto) (0.0-0.4) X10*3/uL Baso # (Auto) (0.0-0.2) X10*3/uL Abs Immat Gran (auto) (0.00-0.03) X10*3/uL Absolute Neuts (auto) (2.0-8.3) X10*3/uL Absolute Nucleated RBC (0.0-0.012) X10*3/uL Nucleated RBC % (auto) (0.0-0.2) /100WBC Smear Tech's Comments PT (10.8-13.0) SEC INR (0.9-1.1) APTT (24.1-38.0) SEC Sodium (135-145) mmol/L Potassium (3.3-5.1) mmol/L Chloride (96-108) mmol/L Carbon Dioxide (22-29) mmol/L Anion Gap (12-20) BUN (9-16) mg/dL Creatinine (0.5-1.4) mg/dL Estim Creat Clear Calc Estimated GFR Random Glucose (60-115) mg/dL Lactic Acid 2.2 H* (0.5-2.0) mmol/L Calcium (8.4-10.2) mg/dL Total Bilirubin (0.0-1.0) mg/dL AST (5-37) U/L ALT (0-40) U/L Alkaline Phosphatase (39-117) U/L Troponin I High Sens 54.8 H (<3.5-35.0) ng/L Total Protein (6.5-8.0) g/dL Albumin (3.5-5.0) g/dL ECG Data ECG #1: Pacemaker model: Normal sinus rhythm rate 79 intraventricular conduction delay no ischemia Discharge Plan Discharge Prescriptions: No Action Combivent Respimat 20-100 mcg/actuation Mist 1 puff INHALATION QID RF: 0 polyvinyl alcohol [Artificial Tears (polyvin alc)] 1.4 % Drops 1 drp OPHTHALMIC (EYE) Q4H PRN (Reason: Dry Eye(S)) RF: 0 ondansetron HCl 4 mg Tablet 8 mg PO BID PRN (Reason: Nausea And Vomiting) RF: 0 Trulicity 0.75 mg/0.5 mL Pen Injector 0.75 mg SUBCUT DIOP RF: 0 atorvastatin 80 mg Tablet 80 mg PO DAILY RF: 0 ranolazine 500 mg Tablet Extended Release 12 Hr 500 mg PO BID RF: 0 aspirin 81 mg Tablet,Delayed Release (Dr/Ec) 81 mg PO DAILY RF: 0 famotidine 20 mg Tablet 20 mg PO DAILY RF: 0 Stiolto Respimat 2.5-2.5 mcg/actuation Mist 2 puff INHALATION DAILY RF: 0 nitroglycerin 0.4 mg tablet, sublingual 1 tab sublingual NEEDED RF: 0 cholecalciferol (vitamin D3) 50 mcg (2,000 unit) capsule 1 cap PO QAM RF: 0 Entresto 24-26 mg tablet 1 tab PO BID RF: 0 metoprolol tartrate 25 mg tablet 12.5 mg PO BID Qty: 60 RF: 0 furosemide 80 mg Tablet 80 mg PO DAILY Qty: 0 RF: 0
[2020-10-03] MEDS: 0.9 % Sodium Chloride 1,000 ML 999 ML IVCONT (11:29)
[2020-10-03 13:23] LABS: Basophils Percent Auto 0.6 % (0-2); Eosinophils Absolute Auto 0.1 X10*3/uL (0.0-0.4); Hematocrit 36.2 % (42-52); Imm Gran Abs Auto 0.02 X10*3/uL (0.00-0.03); Imm Gran Pct Auto 0.4 % (0.0-0.4); Lymphocytes Absolute Auto 0.5 X10*3/uL (1.2-4.9); MANUAL DIFF FLAG SCAN; Mean Corpuscular HGB Conc 33.1 g/dl (31.0-36.0); Mean Corpuscular Hemoglobin 33.1 pg (27.0-33.0); Mean Corpuscular Volume 99.7 fL (80-98); Mean Platelet Volume 11.6 fL (9.4-12.4); Monocytes Absolute Auto 0.6 X10*3/uL (0.1-1.2); Monocytes Percent Auto 11.4 % (2-11); Neutrophils Absolute Auto 3.9 X10*3/uL (2.0-8.3); Neutrophils Percent Auto 76.6 % (45-73); Platelet Count 151 X10*3/uL (160-400); Red Blood Count 3.63 X10*6/uL (4.60-5.80); Red Cell Distribution Width 16.9 % (11.0-16.0); SCAN SMEAR FLAG 1; White Blood Count 5.1 X10*3/uL (4.8-10.8)
[2020-10-03 13:29] LABS: INTERNATIONAL NORM RATIO 1.2 (0.9-1.1); Prothrombin Time 14.4 SEC (10.8-13.0)
[2020-10-03 13:32] LABS: Partial Thromboplastin Time 30.8 SEC (24.1-38.0)
[2020-10-03 13:47] LABS: SLIDE REVIEW VERIFIED
[2020-10-03 13:52] LABS: Alanine Aminotransferase 65 U/L (0-40); Albumin Level 3.5 g/dL (3.5-5.0); Alkaline Phosphatase 82 U/L (39-117); Anion Gap 14 (12-20); Aspartate Amino Transferase 29 U/L (5-37); Blood Urea Nitrogen 31 mg/dL (9-16); Calcium 8.4 mg/dL (8.4-10.2); Carbon Dioxide 25 mmol/L (22-29); Chloride 105 mmol/L (96-108); Creatinine Clr Calc Pharmacy 36.9; Estimated Glomerular Filt Rate 56; Glucose Random 166 mg/dL (60-115); Sodium 139 mmol/L (135-145); Total Protein 5.4 g/dL (6.5-8.0)
[2020-10-03 13:57] LABS: Bilirubin Total 1.7 mg/dL (0.0-1.0)
[2020-10-03 14:02] LABS: Lactic Acid 2.2 mmol/L (0.5-2.0)
[2020-10-03 14:10] LABS: Troponin-I High Sensitivity 54.8 ng/L (<3.5-35.0)
--- NOTE | 2020-10-03 15:10 | PM.IMHP ---
History of Present Illness Date of Service: 10/03/20 Chief Complaint: syncope 85M presented with syncope. patient states he was feeling at baseline on morning of presentation. he went for a walk, started feeling sob and lightheaded. he then reports falling slowly to the ground, questionable loss of consciousness, no trauma. found to be hypotensive with systolic in 80s. in ED was given 1L NS and BP improved. patient has known ischemic cardiomyopathy on entresto, lopressor, and diuretics. did have plan to follow up outpatient for resynchronization. Review of Systems Review of Systems: Constitutional: Denies fever, denies Chills Eyes: denies blurry vision ENT: denies sore throat CVS: chest pain Respiratory: dyspnea GI: no abdominal pain : denies dysuria MSK: denies neck pain Skin: denies rash Neuro: denies specific motor weakness Psych: denies suicidal ideation Endocrine: denies heat/cold intoleratnce Hematologic: denies easy bleeding Allergy: denies hives [facility] Medical History Atherosclerotic cardiovascular disease COPD (chronic obstructive pulmonary disease) Diabetes mellitus GERD (gastroesophageal reflux disease) History of myocardial infarction Hyperlipidemia Ischemic cardiomyopathy LBBB (left bundle branch block) Non-rheumatic mitral regurgitation Pulmonary hypertension Family History Father No problems noted. Mother No problems noted. Family history: reviewed and not pertinent Surgical History Hx of CABG S/P CABG x 3 Social History Household Members: Children Housing: Apartment Smoking Status: Former smoker Tobacco Type: Cigarette Second Hand Smoke Exposure: No Advance Directives: No service: No Current occupational status: retired Meds Allergies Allergy/AdvReac Type Severity Reaction Status Date / Time No Known Allergies Allergy Unknown NOT Verified 10/03/20 11:18 APPLICABLE Active Medications: Current Medications Generic Name Dose Route Start Last Admin Trade Name Freq PRN Reason Stop Dose Admin Aspirin 81 mg 10/04/20 09:00 Aspirin Enteric Coated 81 Mg Tablet. PO DAILY [facility] Atorvastatin Calcium 80 mg 10/04/20 09:00 Atorvastatin Calcium 80 Mg Tablet PO DAILY [facility] Enoxaparin Sodium 40 mg 10/03/20 15:15 Enoxaparin Sodium 40 Mg/0.4 Ml Syringe SUBCUT Q24H [facility] Sodium Chloride 1,000 mls @ 50 mls/hr 10/03/20 15:15 Ns IVCONT .Q20H [facility] Insulin Human Lispro 0 unit 10/03/20 16:30 Insulin Lispro 100 Unit/Ml 3 Ml Vial SUBCUT QIDACHS [facility] Protocol Pharmacy Consult 1 each 10/03/20 14:29 Consult Rx Perform Med Rec MISCELLANE ONCE PRN Consult order Ranolazine 500 mg 10/03/20 21:00 Ranolazine 500 Mg Tab.Er.12h PO BID [facility] Sodium Chloride 3 ml 10/03/20 16:00 0.9 % Sodium Chloride Flush 3 Ml Syringe IVFLUSH QSHIFT [facility] Home Medications Medication Instructions Recorded Confirmed Last Taken Type Combivent Respimat 1 puff INHALATION QID 08/06/20 10/03/20 08/06/20 History Stiolto Respimat 2 puff INHALATION DAILY 09/01/20 10/03/20 Unknown History Trulicity 0.75 mg SUBCUT DIOP 09/01/20 10/03/20 Unknown History aspirin 81 mg PO DAILY 09/01/20 10/03/20 Unknown History atorvastatin 80 mg PO DAILY 09/01/20 10/03/20 Unknown History famotidine 20 mg PO DAILY 09/01/20 10/03/20 Unknown History polyvinyl alcohol [Artificial 1 drp OPHTHALMIC (EYE) Q4H PRN 09/01/20 10/03/20 Unknown History Tears (polyvin alc)] ranolazine 500 mg PO BID 09/01/20 10/03/20 Unknown History Entresto 1 tab PO BID 09/18/20 10/03/20 Unknown History cholecalciferol (vitamin D3) 1 cap PO QAM 09/18/20 10/03/20 Unknown History nitroglycerin 1 tab SUBLINGUAL NEEDED 09/18/20 10/03/20 Unknown History furosemide 160 mg PO BID 10/03/20 10/03/20 Unknown History Physical Exam Vital Signs and Narrative: Vital Signs: Last Vital Signs Temp 97.1 F 10/03/20 12:47 Pulse 72 10/03/20 14:10 Resp 12 10/03/20 14:10 BP 110/62 10/03/20 14:10 Pulse Ox 97 10/03/20 14:10 Body Mass Index 22.3 General: no acute distress HEENT: atraumatic Neck: normal to visual inspection CVS: S1, S2, RRR Resp: CTA bilateral Chest: non tender GI: soft, non tender, non distended : no CVA tenderness Skin: no rashes Extremities: no edema Neuro: Oriented X3, grossly intact Psych: cooperative Results Labs CBC and Chem 7: 10/03/20 12:47 10/03/20 12:47 Labs: Laboratory Results - last 24 hr 10/03/20 10/03/20 10/03/20 12:47 12:47 12:47 MCV 99.7 H MCH 33.1 H MCHC 33.1 RDW 16.9 H Plt Count 151 L MPV 11.6 Immature Gran % (Auto) 0.4 Neut % (Auto) 76.6 H Lymph % (Auto) 10.0 L [place] % (Auto) 11.4 H Eos % (Auto) 1.0 Baso % (Auto) 0.6 Lymph # (Auto) 0.5 L [place] # (Auto) 0.6 Eos # (Auto) 0.1 Baso # (Auto) 0.0 Abs Immat Gran (auto) 0.02 Absolute Neuts (auto) 3.9 Absolute Nucleated RBC 0.000 Nucleated RBC % (auto) 0.0 Smear Tech's Comments VERIFIED PT 14.4 H INR 1.2 H APTT 30.8 Anion Gap 14 Estim Creat Clear Calc 36.9 Estimated GFR 56 Random Glucose 166 H D Lactic Acid Calcium 8.4 Total Bilirubin 1.7 H AST 29 ALT 65 H Alkaline Phosphatase 82 Troponin I High Sens Total Protein 5.4 L Albumin 3.5 10/03/20 10/03/20 12:47 13:11 MCV MCH MCHC RDW Plt Count MPV Immature Gran % (Auto) Neut % (Auto) Lymph % (Auto) [place] % (Auto) Eos % (Auto) Baso % (Auto) Lymph # (Auto) [place] # (Auto) Eos # (Auto) Baso # (Auto) Abs Immat Gran (auto) Absolute Neuts (auto) Absolute Nucleated RBC Nucleated RBC % (auto) Smear Tech's Comments PT INR APTT Anion Gap Estim Creat Clear Calc Estimated GFR Random Glucose Lactic Acid 2.2 H* Calcium Total Bilirubin AST ALT Alkaline Phosphatase Troponin I High Sens 54.8 H Total Protein Albumin Imaging Radiologist's Impressions: Impressions Chest X-Ray 10/03/20 12:27 IMPRESSION: Stable enlargement of cardiac silhouette. New small left pleural effusion. Assessment and Plan (1) Hypotension: Status: Acute (2) Ischemic cardiomyopathy: Problem details: EF 15-20%, grade 3 diastolic dysfunction Status: Acute 85M presented with syncope/hypotension Syncope due to hypotension related to ischemic cardiomyopathy with an EF of 10-15% on Lopressor, Entresto, diuretics Will hold meds Gently hydrate Monitor on tele Cardio eval Coronary disease Aspirin, statin, Ranexa Diabetes Insulin
[2020-10-03 15:16] LABS: Reflex Lactate? Lactic Acid Added
[2020-10-03 15:16] LABS: Influenza A PCR NEGATIVE (Negative); Influenza B PCR NEGATIVE (Negative); Resp Syncy Virus RNA Qual PCR NEGATIVE (Negative); SARS COV2 PCR INHOUSE NEGATIVE (Negative)
--- NOTE | 2020-10-03 15:45 | PC.NURSE ---
pt has not voided since yesterday, reports inability to do so. bladder scan to be completed. sob upon any exertion, RR 22. awiting bed assignment.
[2020-10-03 17:10] LABS: ~Lactic Acid-LAB USE ONLY 1.8 mmol/L (0.5-2.0)
--- NOTE | 2020-10-03 17:10 | MHC.CM.PN ---
Addendum entered by María Muller 10/03/20 18:17: HCP reviewed, completed, signed and uploaded into [employer] and [employer]. Message left with Renea at [facility] regarding daughters request to increase services with WORKERS COMPENSATION ADMINISTRATOR/CRUISE DIRECTOR and to f/u with Sena ([phone]). Pt. awaiting room assignment. Original Note: CM met with pt with use of nuclear instructor, pt. [place] speaking only. Pt is admitted to Observation. [place] reviewed and signed. HCP is not on file. Reviewed process and pt would like his daughter, Sena Covington to be his HCP. Pt has meals on wheels throught [facility] and has [facility], but no further services. Pt. states his daughter is getting him more help. Pt states his daughter helps him and he feels safe at home. Pt essentially uses a cane, but has a walker and a wheelchair at home. Also has adjustable bed. Pt did not fall, but may benefit from PT evaluation prior to discharge. Awaiting a room assignment. CM to follow for d/c needs.
[2020-10-03 17:42] LABS: Troponin-I High Sensitivity 58.8 ng/L (<3.5-35.0)
[2020-10-03] MEDS: 0.9 % Sodium Chloride 1,000 ML 50 ML IVCONT (18:00)
[2020-10-03] MEDS: Enoxaparin Sodium 40 MG/0.4 ML SYRINGE SUBCUT (18:12)
[2020-10-03] MEDS: 0.9 % Sodium Chloride Flush 3 ML SYRINGE IVFLUSH (18:12)
[2020-10-03 18:19] LABS: Glucose, Whole Blood 124 mg/dL (60-115)
--- NOTE | 2020-10-03 20:31 | PC.NURSE ---
CALLED UP TO [facility] TO GIVE REPORT, EXPECTING CALL BACK
--- NOTE | 2020-10-03 20:32 | PC.NURSE ---
PT ATE MEAL THIS EVENING, NO COVERAGE NEEDED PER PROTOCOL.
[2020-10-03 22:26] LABS: Glucose, Whole Blood 178 mg/dL (60-115)
[2020-10-03] MEDS: Ranolazine 500 MG TAB.ER.12H PO (22:26)
[2020-10-03] MEDS: Insulin Lispro 100 UNIT/ML 3 ML VIAL SUBCUT (22:26)
--- NOTE | 2020-10-04 01:21 | PC.NURSE ---
Pt bladder scanned for 600 in ED and straight cathed x1 per nurse report. Bladder scan up to floor of 400. Pt unable to urinate and states he has needed reyes catheter in the past. Reyes cath placed for retention.
[2020-10-04 03:03] VITALS: BP 109/67; PULSE 82; RESP 18; TEMP 36.7; O2SAT 99
[2020-10-04 06:34] LABS: MANUAL DIFF FLAG NO
[2020-10-04 06:55] LABS: Basophils Percent Auto 0.9 % (0-2); Eosinophils Absolute Auto 0.1 X10*3/uL (0.0-0.4); Eosinophils Percent Auto 2.1 % (0-4); Hemoglobin 11.7 g/dl (14.0-18.0); Imm Gran Abs Auto 0.01 X10*3/uL (0.00-0.03); Imm Gran Pct Auto 0.2 % (0.0-0.4); Lymphocytes Absolute Auto 1.4 X10*3/uL (1.2-4.9); Lymphocytes Percent Auto 32.8 % (20-40); Mean Corpuscular HGB Conc 33.4 g/dl (31.0-36.0); Mean Corpuscular Hemoglobin 33.1 pg (27.0-33.0); Mean Corpuscular Volume 98.9 fL (80-98); Mean Platelet Volume 11.8 fL (9.4-12.4); Monocytes Absolute Auto 0.6 X10*3/uL (0.1-1.2); Monocytes Percent Auto 14.4 % (2-11); Neutrophils Absolute Auto 2.2 X10*3/uL (2.0-8.3); Neutrophils Percent Auto 49.6 % (45-73); Platelet Count 153 X10*3/uL (160-400); Red Blood Count 3.54 X10*6/uL (4.60-5.80); Red Cell Distribution Width 17.1 % (11.0-16.0); White Blood Count 4.4 X10*3/uL (4.8-10.8)
[2020-10-04 06:57] LABS: Anion Gap 11 (12-20); Blood Urea Nitrogen 31 mg/dL (9-16); Calcium 8.5 mg/dL (8.4-10.2); Carbon Dioxide 26 mmol/L (22-29); Chloride 108 mmol/L (96-108); Creatinine Clr Calc Pharmacy 39.3; Estimated Glomerular Filt Rate 59; Glucose Random 134 mg/dL (60-115); Potassium 4.6 mmol/L (3.3-5.1); Sodium 140 mmol/L (135-145)
[2020-10-04 07:01] LABS: B Type Natriuretic Peptide 4073 pg/mL (<100)
[2020-10-04 07:03] LABS: Glucose, Whole Blood 127 mg/dL (60-115)
[2020-10-04 07:19] VITALS: BP 113/73; PULSE 82; RESP 20; TEMP 36.4; O2SAT 97
[2020-10-04] MEDS: Ranolazine 500 MG TAB.ER.12H PO ×2 (09:07→20:49)
[2020-10-04] MEDS: 0.9 % Sodium Chloride Flush 3 ML SYRINGE IVFLUSH ×2 (09:07→16:42)
[2020-10-04] MEDS: Atorvastatin Calcium 80 MG TABLET PO (09:07)
[2020-10-04] MEDS: Aspirin Enteric Coated 81 MG TABLET.DR PO (09:07)
[2020-10-04] MEDS: 0.9 % Sodium Chloride 1,000 ML 50 ML IVCONT (09:08)
[2020-10-04 11:17] LABS: Glucose, Whole Blood 151 mg/dL (60-115)
[2020-10-04 11:18] VITALS: BP 100/51; PULSE 86; RESP 20; TEMP 37.2; O2SAT 95
[2020-10-04] MEDS: Insulin Lispro 100 UNIT/ML 3 ML VIAL SUBCUT (11:41)
--- NOTE | 2020-10-04 11:46 | PM.CNCAR ---
History of Present Illness History of Present Illness Date of Service: 10/04/20 Requesting physician: Mars Spicer Chief complaint: Hypotension, weakness Narrative: 85-year-old gentleman with known ICM ef 10-15% and severe MR awaiting COSMETIC SURGEON-D. He has been admitted before with trachea and hypertension. He was given IV fluids and his diuretics were changed. He said he was walking and became very weak suddenly. He said he had chest discomfort as well as some palpitations. He is saying gets chest discomfort with exertion in general. He is short of breath and is having trouble speaking in full sentences but he is saying that this is his baseline. He was noticed to have hypotension with blood pressure in the 80s. He was taken off of his home medications and started on IV fluids. [facility] Past Medical History Medical History Atherosclerotic cardiovascular disease COPD (chronic obstructive pulmonary disease) Diabetes mellitus GERD (gastroesophageal reflux disease) History of myocardial infarction Hyperlipidemia Ischemic cardiomyopathy LBBB (left bundle branch block) Non-rheumatic mitral regurgitation Pulmonary hypertension Family History Family History Father No problems noted. Mother No problems noted. Family history: reviewed and not pertinent Surgical History Surgical History Hx of CABG S/P CABG x 3 Social History Social History Household Members: None Housing: Apartment Do you presently have visiting nurse or other home services: Yes (unknnown) Smoking Status: Former smoker Tobacco Type: Cigarette Second Hand Smoke Exposure: No Use of substances other than those prescribed or required for medical reasons: No Currently Displaying Signs/Symptoms of Drug Intoxication Withdrawal: No Have you been hit, kicked, punched, or otherwise hurt by someone within the past year? If so, by whom?: No Do you feel safe in your current relationship?: No Current Relationship Is there a partner from a previous relationship who is making you feel unsafe now?: No Are you made to feel afraid or neglected: No Advance Directives: No Do you have thoughts of harming others: None Do you have a plan to hurt others: No Plan Recently lost weight without trying: Yes service: No Current occupational status: retired Meds Allergies Allergy/AdvReac Type Severity Reaction Status Date / Time No Known Allergies Allergy Unknown NOT Verified 10/03/20 11:18 APPLICABLE Active Medications: Current Medications Generic Name Dose Route Start Last Admin Trade Name Kikoq PRN Reason Stop Dose Admin Aspirin 81 mg 10/04/20 09:00 10/04/20 09:07 Aspirin Enteric Coated 81 Mg Tablet.Dr PO 81 mg DAILY [facility] Administration Atorvastatin Calcium 80 mg 10/04/20 09:00 10/04/20 09:07 Atorvastatin Calcium 80 Mg Tablet PO 80 mg DAILY [facility] Administration Enoxaparin Sodium 40 mg 10/03/20 16:00 10/03/20 18:12 Enoxaparin Sodium 40 Mg/0.4 Ml Syringe SUBCUT 40 mg Q24H [facility] Administration Fluticasone/Vilanterol 1 puff 10/04/20 11:45 Fluticasone/Vilanterol 200/25 Blst.W.Dev INHALE RDAILY [facility] Insulin Human Lispro 0 unit 10/03/20 16:30 10/04/20 11:41 Insulin Lispro 100 Unit/Ml 3 Ml Vial SUBCUT 2 unit QIDACHS [facility] Administration Protocol Pharmacy Consult 1 each 10/03/20 14:29 Consult Rx Perform Med Rec MISCELLANE ONCE PRN Consult order Ranolazine 500 mg 10/03/20 21:00 10/04/20 09:07 Ranolazine 500 Mg Tab.Er.12h PO 500 mg BID [facility] Administration Sodium Chloride 3 ml 10/03/20 16:00 10/04/20 09:07 0.9 % Sodium Chloride Flush 3 Ml Syringe IVFLUSH 3 ml QSHIFT [facility] Administration Home Medications Medication Instructions Recorded Confirmed Last Taken Type Combivent Respimat 1 puff INHALATION QID 08/06/20 10/03/20 08/06/20 History Stiolto Respimat 2 puff INHALATION DAILY 09/01/20 10/03/20 Unknown History Trulicity 0.75 mg SUBCUT DIOP 09/01/20 10/03/20 Unknown History aspirin 81 mg PO DAILY 09/01/20 10/03/20 Unknown History atorvastatin 80 mg PO DAILY 09/01/20 10/03/20 Unknown History famotidine 20 mg PO DAILY 09/01/20 10/03/20 Unknown History polyvinyl alcohol [Artificial 1 drp OPHTHALMIC (EYE) Q4H PRN 09/01/20 10/03/20 Unknown History Tears (polyvin alc)] ranolazine 500 mg PO BID 09/01/20 10/03/20 Unknown History Entresto 1 tab PO BID 09/18/20 10/03/20 Unknown History cholecalciferol (vitamin D3) 1 cap PO QAM 09/18/20 10/03/20 Unknown History nitroglycerin 1 tab SUBLINGUAL NEEDED 09/18/20 10/03/20 Unknown History furosemide 160 mg PO BID 10/03/20 10/03/20 Unknown History Physical Exam Vital Signs: Vital Signs: Last Vital Signs Temp 98.9 F 10/04/20 11:18 Pulse 86 10/04/20 11:18 Resp 20 10/04/20 11:18 BP 100/51 L 10/04/20 11:18 Pulse Ox 95 10/04/20 11:18 Body Mass Index 23.3 GENERAL APPEARANCE: Short or breath. Frail. HEENT: unremarkable. HEAD: normocephalic, atraumatic. NECK/THYROID: no carotid bruit. Distended neck veins. SKIN: no suspicious lesions, warm and dry. HEART: S1 plus S2, holosystolic murmur at the apex. LUNGS: clear to auscultation bilaterally. ABDOMEN: Left basal crackles. EXTREMITIES: no clubbing, cyanosis. Mild edema. PERIPHERAL PULSES: equal. NEUROLOGIC: nonfocal, alert and oriented. PSYCH: mood/affect full range. Results Labs and Meds Result diagrams: 10/04/20 05:41 10/04/20 05:41 Lab results: Laboratory Results - last 24 hr 10/03/20 10/03/20 10/03/20 12:47 12:47 12:47 WBC 5.1 RBC 3.63 L D Hgb 12.0 L Hct 36.2 L MCV 99.7 H MCH 33.1 H MCHC 33.1 RDW 16.9 H Plt Count 151 L MPV 11.6 Immature Gran % (Auto) 0.4 Neut % (Auto) 76.6 H Lymph % (Auto) 10.0 L [place] % (Auto) 11.4 H Eos % (Auto) 1.0 Baso % (Auto) 0.6 Lymph # (Auto) 0.5 L [place] # (Auto) 0.6 Eos # (Auto) 0.1 Baso # (Auto) 0.0 Abs Immat Gran (auto) 0.02 Absolute Neuts (auto) 3.9 Absolute Nucleated RBC 0.000 Nucleated RBC % (auto) 0.0 Smear Tech's Comments VERIFIED PT 14.4 H INR 1.2 H APTT 30.8 Sodium 139 Potassium 5.0 D Chloride 105 Carbon Dioxide 25 Anion Gap 14 BUN 31 H D Creatinine 1.24 Estim Creat Clear Calc 36.9 Estimated GFR 56 POC Glucose Random Glucose 166 H D Lactic Acid Lactic Acid Fup @ 2Hr Calcium 8.4 Total Bilirubin 1.7 H AST 29 ALT 65 H Alkaline Phosphatase 82 Troponin I High Sens B-Natriuretic Peptide Total Protein 5.4 L Albumin 3.5 Coronavirus (PCR) Influenza Type A (PCR) Influenza Type B (PCR) RSV RNA Qual (PCR) 10/03/20 10/03/20 10/03/20 12:47 12:53 13:11 WBC RBC Hgb Hct MCV MCH MCHC RDW Plt Count MPV Immature Gran % (Auto) Neut % (Auto) Lymph % (Auto) [place] % (Auto) Eos % (Auto) Baso % (Auto) Lymph # (Auto) [place] # (Auto) Eos # (Auto) Baso # (Auto) Abs Immat Gran (auto) Absolute Neuts (auto) Absolute Nucleated RBC Nucleated RBC % (auto) Smear Tech's Comments PT INR APTT Sodium Potassium Chloride Carbon Dioxide Anion Gap BUN Creatinine Estim Creat Clear Calc Estimated GFR POC Glucose Random Glucose Lactic Acid 2.2 H* Lactic Acid Fup @ 2Hr Calcium Total Bilirubin AST ALT Alkaline Phosphatase Troponin I High Sens 54.8 H B-Natriuretic Peptide Total Protein Albumin Coronavirus (PCR) NEGATIVE Influenza Type A (PCR) NEGATIVE Influenza Type B (PCR) NEGATIVE RSV RNA Qual (PCR) NEGATIVE 10/03/20 10/03/20 10/03/20 16:36 16:36 18:06 WBC RBC Hgb Hct MCV MCH MCHC RDW Plt Count MPV Immature Gran % (Auto) Neut % (Auto) Lymph % (Auto) [place] % (Auto) Eos % (Auto) Baso % (Auto) Lymph # (Auto) [place] # (Auto) Eos # (Auto) Baso # (Auto) Abs Immat Gran (auto) Absolute Neuts (auto) Absolute Nucleated RBC Nucleated RBC % (auto) Smear Tech's Comments PT INR APTT Sodium Potassium Chloride Carbon Dioxide Anion Gap BUN Creatinine Estim Creat Clear Calc Estimated GFR POC Glucose 124 H Random Glucose Lactic Acid Lactic Acid Fup @ 2Hr 1.8 Calcium Total Bilirubin AST ALT Alkaline Phosphatase Troponin I High Sens 58.8 H B-Natriuretic Peptide Total Protein Albumin Coronavirus (PCR) Influenza Type A (PCR) Influenza Type B (PCR) RSV RNA Qual (PCR) 10/03/20 10/04/20 10/04/20 22:22 05:41 05:41 WBC 4.4 L RBC 3.54 L Hgb 11.7 L Hct 35.0 L MCV 98.9 H MCH 33.1 H MCHC 33.4 RDW 17.1 H Plt Count 153 L MPV 11.8 Immature Gran % (Auto) 0.2 Neut % (Auto) 49.6 Lymph % (Auto) 32.8 [place] % (Auto) 14.4 H Eos % (Auto) 2.1 Baso % (Auto) 0.9 Lymph # (Auto) 1.4 [place] # (Auto) 0.6 Eos # (Auto) 0.1 Baso # (Auto) 0.0 Abs Immat Gran (auto) 0.01 Absolute Neuts (auto) 2.2 Absolute Nucleated RBC 0.000 Nucleated RBC % (auto) 0.0 Smear Tech's Comments PT INR APTT Sodium Potassium Chloride Carbon Dioxide Anion Gap BUN Creatinine Estim Creat Clear Calc Estimated GFR POC Glucose 178 H Random Glucose Lactic Acid Lactic Acid Fup @ 2Hr Calcium Total Bilirubin AST ALT Alkaline Phosphatase Troponin I High Sens B-Natriuretic Peptide 4073 H Total Protein Albumin Coronavirus (PCR) Influenza Type A (PCR) Influenza Type B (PCR) RSV RNA Qual (PCR) 10/04/20 10/04/20 10/04/20 05:41 06:56 11:04 WBC RBC Hgb Hct MCV MCH MCHC RDW Plt Count MPV Immature Gran % (Auto) Neut % (Auto) Lymph % (Auto) [place] % (Auto) Eos % (Auto) Baso % (Auto) Lymph # (Auto) [place] # (Auto) Eos # (Auto) Baso # (Auto) Abs Immat Gran (auto) Absolute Neuts (auto) Absolute Nucleated RBC Nucleated RBC % (auto) Smear Tech's Comments PT INR APTT Sodium 140 Potassium 4.6 Chloride 108 Carbon Dioxide 26 Anion Gap 11 L BUN 31 H Creatinine 1.17 Estim Creat Clear Calc 39.3 Estimated GFR 59 POC Glucose 127 H 151 H Random Glucose 134 H Lactic Acid Lactic Acid Fup @ 2Hr Calcium 8.5 Total Bilirubin AST ALT Alkaline Phosphatase Troponin I High Sens B-Natriuretic Peptide Total Protein Albumin Coronavirus (PCR) Influenza Type A (PCR) Influenza Type B (PCR) RSV RNA Qual (PCR) Imaging Radiologist's impression: Impressions Chest X-Ray 10/03/20 12:27 IMPRESSION: Stable enlargement of cardiac silhouette. New small left pleural effusion. Assessment and Plan (1) Chest pain: Status: Acute (2) Hypotension: Status: Acute (3) Ischemic cardiomyopathy: Problem details: EF 15-20%, grade 3 diastolic dysfunction Status: Acute (4) LBBB (left bundle branch block): Status: Acute (5) Non-rheumatic mitral regurgitation: Status: Acute Pleasant 85-year-old gentleman who is here for weakness and hypotension. He has background of ischemic cardiomyopathy with EF of 10-15% with moderate to severe mitral valve regurgitation. He is waiting to be assessed by electrophysiology for COSMETIC SURGEON-D. This is the 2nd admission with hypertension. Last admission was toward mid September when he presented with hypotension and acute kidney injury. His diuretics were stopped and was given IV fluids. Again he is presenting with hypotension. It appears at home he was taking Entresto, Lasix 160 mg twice a day and metoprolol tartrate 12.5 mg twice a day. He is also on Ranexa. Continue the Ranexa as before. Continue to hold his Entresto and metoprolol. Stop the IV fluids because he is volume overloaded. 80 mg of IV Lasix given. We will monitor his I's and O's and does have further with IV diuretics. I think he is not tolerating the neurohormonal blockers. This is generally a bad sign. He has been admitted multiple times. I think for now we hold his metoprolol. If his blood pressure allows we will resume his Entresto only. He will get COSMETIC SURGEON-D as planned before. He has chronic angina and based on recent cardiac catheterization there are no PCI options. Thank you for allowing me to participate in the care of your patient. Please feel free to contact me if you have any questions.
[2020-10-04] MEDS: Furosemide 100 MG/10 ML VIAL 80 MG IVPUSH (12:17)
[2020-10-04] MEDS: Fluticasone/Vilanterol 200/25 BLST.W.DEV 1 PUFF INHALE (12:36)
[2020-10-04 12:38] VITALS: PULSE 84; O2SAT 95
--- NOTE | 2020-10-04 13:06 | HO.PM.IMPN ---
Subjective Subjective Date of Service: 10/04/20 Interval History: General: AO X 3, sob, looks uncomfortable Resp: diminished CVS: S1,S2,RRR GI: soft, non tender, non distended Neuro: motor grossly intact Psych: appropriate affect Physical Exam Vital Signs: Vital Signs: Last Vital Signs Temp 98.9 F 10/04/20 11:18 Pulse 86 10/04/20 11:18 Resp 20 10/04/20 11:18 BP 100/51 L 10/04/20 11:18 Pulse Ox 95 10/04/20 11:18 Body Mass Index 23.3 Objective Data Current Medications Generic Name Dose Route Start Last Admin Trade Name Freq PRN Reason Stop Dose Admin Aspirin 81 mg 10/04/20 09:00 10/04/20 09:07 Aspirin Enteric Coated 81 Mg Tablet.Dr PO 81 mg DAILY [facility] Administration Atorvastatin Calcium 80 mg 10/04/20 09:00 10/04/20 09:07 Atorvastatin Calcium 80 Mg Tablet PO 80 mg DAILY [facility] Administration Enoxaparin Sodium 40 mg 10/03/20 16:00 10/03/20 18:12 Enoxaparin Sodium 40 Mg/0.4 Ml Syringe SUBCUT 40 mg Q24H [facility] Administration Fluticasone/Vilanterol 1 puff 10/04/20 11:45 10/04/20 12:36 Fluticasone/Vilanterol 200/25 Blst.W.Dev INHALE 1 puff RDAILY [facility] Administration Furosemide 80 mg 10/05/20 00:00 Furosemide 100 Mg/10 Ml Vial IVPUSH Q12H [facility] Protocol Insulin Human Lispro 0 unit 10/03/20 16:30 10/04/20 11:41 Insulin Lispro 100 Unit/Ml 3 Ml Vial SUBCUT 2 unit QIDACHS [facility] Administration Protocol Pharmacy Consult 1 each 10/03/20 14:29 Consult Rx Perform Med Rec MISCELLANE ONCE PRN Consult order Ranolazine 500 mg 10/03/20 21:00 10/04/20 09:07 Ranolazine 500 Mg Tab.Er.12h PO 500 mg BID [facility] Administration Sodium Chloride 3 ml 10/03/20 16:00 10/04/20 09:07 0.9 % Sodium Chloride Flush 3 Ml Syringe IVFLUSH 3 ml QSHIFT [facility] Administration Labs CBC & Chem 7: 10/04/20 05:41 10/04/20 05:41 Microbiology Microbiology Results: Microbiology 10/03/20 13:11 Blood - Venous Blood Culture - Final 10/03/20 13:11 Blood - Venous Blood Culture - Final 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 incr bili: w/u in progress REC: ; avoid nephrotoxins; DC planning will follow up as OP Status: Deleted Assessment and Plan: 85M presented with low blood pressure found to have CORA Syncope due to hypotension related to ischemic cardiomyopathy with an EF of 10-15% on Lopressor, Entresto, acute decompensation dc ivf will start iv diuresis monitor bmp cardio following holding lopressor, entresto Coronary disease Aspirin, statin, Ranexa Diabetes Insulin
[2020-10-04 15:40] VITALS: BP 115/60; PULSE 85; O2SAT 92
[2020-10-04 16:33] LABS: Glucose, Whole Blood 78 mg/dL (60-115)
[2020-10-04] MEDS: Enoxaparin Sodium 40 MG/0.4 ML SYRINGE SUBCUT (16:41)
[2020-10-04 19:36] VITALS: BP 113/64; PULSE 87; RESP 18; TEMP 36.6; O2SAT 92
[2020-10-04 20:35] LABS: Glucose, Whole Blood 135 mg/dL (60-115)
[2020-10-05] VITALS (9 sets, daily range): BP systolic 91–156; BP diastolic 52–76; PULSE 75–92; RESP 18–22; TEMP 36.1–36.5; O2SAT 93–98; BMI 22.8
[2020-10-05] MEDS: Furosemide 100 MG/10 ML VIAL 80 MG IVPUSH ×3 (00:27→17:11)
[2020-10-05] MEDS: 0.9 % Sodium Chloride Flush 3 ML SYRINGE IVFLUSH ×4 (00:27→21:26)
[2020-10-05 06:24] LABS: MANUAL DIFF FLAG NO
[2020-10-05 06:50] LABS: Basophils Percent Auto 0.8 % (0-2); Eosinophils Absolute Auto 0.1 X10*3/uL (0.0-0.4); Hematocrit 35.7 % (42-52); Hemoglobin 11.9 g/dl (14.0-18.0); Imm Gran Abs Auto 0.02 X10*3/uL (0.00-0.03); Imm Gran Pct Auto 0.4 % (0.0-0.4); Lymphocytes Absolute Auto 1.1 X10*3/uL (1.2-4.9); Lymphocytes Percent Auto 21.9 % (20-40); Mean Corpuscular HGB Conc 33.3 g/dl (31.0-36.0); Mean Corpuscular Hemoglobin 32.6 pg (27.0-33.0); Mean Corpuscular Volume 97.8 fL (80-98); Mean Platelet Volume 11.1 fL (9.4-12.4); Monocytes Absolute Auto 0.5 X10*3/uL (0.1-1.2); Monocytes Percent Auto 9.7 % (2-11); Neutrophils Absolute Auto 3.3 X10*3/uL (2.0-8.3); Neutrophils Percent Auto 66.2 % (45-73); Platelet Count 143 X10*3/uL (160-400); Red Blood Count 3.65 X10*6/uL (4.60-5.80); Red Cell Distribution Width 17.2 % (11.0-16.0); White Blood Count 4.9 X10*3/uL (4.8-10.8)
[2020-10-05 06:58] LABS: Anion Gap 13 (12-20); Blood Urea Nitrogen 31 mg/dL (9-16); Calcium 8.4 mg/dL (8.4-10.2); Carbon Dioxide 26 mmol/L (22-29); Chloride 107 mmol/L (96-108); Creatinine Clr Calc Pharmacy 36.8; Estimated Glomerular Filt Rate 55; Glucose Fasting 121 mg/dL (60-99); Magnesium 2.5 mg/dL (1.6-2.6); Potassium 3.9 mmol/L (3.3-5.1); Sodium 142 mmol/L (135-145)
[2020-10-05 07:39] LABS: Glucose, Whole Blood 112 mg/dL (60-115)
[2020-10-05] MEDS: Fluticasone/Vilanterol 200/25 BLST.W.DEV 1 PUFF INHALE (07:51)
[2020-10-05] MEDS: Atorvastatin Calcium 80 MG TABLET PO (09:32)
[2020-10-05] MEDS: Ranolazine 500 MG TAB.ER.12H PO ×2 (09:32→21:25)
[2020-10-05] MEDS: Aspirin Enteric Coated 81 MG TABLET.DR PO (09:32)
[2020-10-05 11:30] LABS: Glucose, Whole Blood 217 mg/dL (60-115)
[2020-10-05] MEDS: Insulin Lispro 100 UNIT/ML 3 ML VIAL SUBCUT (11:44)
--- NOTE | 2020-10-05 11:50 | PM.PNCARD ---
Subjective Subjective Date of Service: 10/05/20 Interval history: Still volume overloaded. Short of breath. Physical Exam Vital Signs: Last Vital Signs Temp 97.2 F 10/05/20 08:00 Pulse 86 10/05/20 11:38 Resp 18 10/05/20 11:38 BP 156/76 H 10/05/20 11:38 Pulse Ox 96 10/05/20 11:38 Body Mass Index 22.8 GENERAL APPEARANCE: Short or breath. Frail. HEENT: unremarkable. HEAD: normocephalic, atraumatic. NECK/THYROID: no carotid bruit. Distended neck veins. SKIN: no suspicious lesions, warm and dry. HEART: S1 plus S2, holosystolic murmur at the apex. LUNGS: clear to auscultation bilaterally. ABDOMEN: Left basal crackles. EXTREMITIES: no clubbing, cyanosis. Mild edema. PERIPHERAL PULSES: equal. NEUROLOGIC: nonfocal, alert and oriented. PSYCH: mood/affect full range. Results Labs and Meds Result diagrams: 10/05/20 05:55 10/05/20 05:56 Lab results: Laboratory Results - last 24 hr 10/04/20 10/04/20 10/05/20 16:23 20:22 05:55 WBC 4.9 RBC 3.65 L Hgb 11.9 L Hct 35.7 L MCV 97.8 MCH 32.6 MCHC 33.3 RDW 17.2 H Plt Count 143 L MPV 11.1 Immature Gran % (Auto) 0.4 Neut % (Auto) 66.2 Lymph % (Auto) 21.9 [place] % (Auto) 9.7 Eos % (Auto) 1.0 Baso % (Auto) 0.8 Lymph # (Auto) 1.1 L [place] # (Auto) 0.5 Eos # (Auto) 0.1 Baso # (Auto) 0.0 Abs Immat Gran (auto) 0.02 Absolute Neuts (auto) 3.3 Absolute Nucleated RBC 0.000 Nucleated RBC % (auto) 0.0 Sodium Potassium Chloride Carbon Dioxide Anion Gap BUN Creatinine Estim Creat Clear Calc Estimated GFR POC Glucose 78 135 H Fasting Glucose Calcium Magnesium 10/05/20 10/05/20 10/05/20 05:56 07:13 11:20 WBC RBC Hgb Hct MCV MCH MCHC RDW Plt Count MPV Immature Gran % (Auto) Neut % (Auto) Lymph % (Auto) [place] % (Auto) Eos % (Auto) Baso % (Auto) Lymph # (Auto) [place] # (Auto) Eos # (Auto) Baso # (Auto) Abs Immat Gran (auto) Absolute Neuts (auto) Absolute Nucleated RBC Nucleated RBC % (auto) Sodium 142 Potassium 3.9 Chloride 107 Carbon Dioxide 26 Anion Gap 13 BUN 31 H Creatinine 1.25 Estim Creat Clear Calc 36.8 Estimated GFR 55 POC Glucose 112 217 H Fasting Glucose 121 H D Calcium 8.4 Magnesium 2.5 Progress Note: A&P Assessment and plan (1) Ischemic cardiomyopathy: Problem details: EF 15-20%, grade 3 diastolic dysfunction Status: Acute (2) Non-rheumatic mitral regurgitation: Status: Acute Assessment and Plan: 85-year-old gentleman presenting with hypotension. He has EF of 10-15% with moderate severe mitral valve regurgitation. BP has improved. Being diuresed with IV Lasix. Continue 80 mg IV b.i.d. Lasix. Please resume his Entresto. Continue to hold the beta-carmelo for now. Chronic chest discomfort due to multivessel disease with no good percutaneous options. He is on Ranexa. Thank you for allowing me to participate in the care of your patient. Please feel free to contact me if you have any questions. Fall Risk Details Current Medications: Current Medications Generic Name Dose Route Start Last Admin Trade Name Freq PRN Reason Stop Dose Admin Albuterol/Ipratropium 3 ml 10/04/20 16:54 Albuterol/Iprat 2.5/0.5mg 3 Ml Ampul.Neb INHALE RQ4H PRN Shortness of Breath Aspirin 81 mg 10/04/20 09:00 10/05/20 09:32 Aspirin Enteric Coated 81 Mg Tablet. PO 81 mg DAILY WINNIE Administration Atorvastatin Calcium 80 mg 10/04/20 09:00 10/05/20 09:32 Atorvastatin Calcium 80 Mg Tablet PO 80 mg DAILY WINNIE Administration Enoxaparin Sodium 40 mg 10/03/20 16:00 10/04/20 16:41 Enoxaparin Sodium 40 Mg/0.4 Ml Syringe SUBCUT 40 mg Q24H WINNIE Administration Fluticasone/Vilanterol 1 puff 10/04/20 11:45 10/05/20 07:51 Fluticasone/Vilanterol 200/25 Blst.W.Dev INHALE 1 puff RDAILY WINNIE Administration Furosemide 80 mg 10/05/20 17:30 Furosemide 100 Mg/10 Ml Vial IVPUSH Q12H WINNIE Protocol Insulin Human Lispro 0 unit 10/03/20 16:30 10/05/20 11:44 Insulin Lispro 100 Unit/Ml 3 Ml Vial SUBCUT 4 unit QIDACHS WINNIE Administration Protocol Pharmacy Consult 1 each 10/03/20 14:29 Consult Rx Perform Med Rec MISCELLANE ONCE PRN Consult order Ranolazine 500 mg 10/03/20 21:00 10/05/20 09:32 Ranolazine 500 Mg Tab.Er.12h PO 500 mg BID WINNIE Administration Sodium Chloride 3 ml 10/03/20 16:00 10/05/20 09:33 0.9 % Sodium Chloride Flush 3 Ml Syringe IVFLUSH 3 ml QSHIFT WINNIE Administration Time Spent With Patient Time: Total time spent is greater than 50% in coordination of care (as documented) at patient's floor/unit and/or counseling patient: Time with patient: 15 - 24 minutes
[2020-10-05] MEDS: Potassium Chloride Packet 20 MEQ PACKET PO (14:07)
--- NOTE | 2020-10-05 15:45 | HO.PM.IMPN ---
Subjective Subjective Date of Service: 10/05/20 Interval History: chf excerebation Review of Systems sob seems improving Denies any chest pain, says shortness of breath seems improving Had a 6 beat NSVT. Denies any nausea vomiting or diarrhea cough or phlegm. Physical Exam Vital Signs: Vital Signs: Last Vital Signs Temp 97.4 F 10/05/20 15:07 Pulse 82 10/05/20 15:07 Resp 18 10/05/20 15:07 BP 92/52 L 10/05/20 15:15 Pulse Ox 96 10/05/20 15:07 Body Mass Index 22.8 Physical exam: Constitutional: Noted acute distress Cvs: rrr, [id number] , no murmur, JVD seems elevated. res: Grossly fair air entry, diminished at bases, no gross rales. abd: no rebound or guarding ,nt, bs present. ext pulses present , no cyanosis neuro: axo3 , nonfocal. Objective Data Current Medications Generic Name Dose Route Start Last Admin Trade Name Freq PRN Reason Stop Dose Admin Albuterol/Ipratropium 3 ml 10/04/20 16:54 Albuterol/Iprat 2.5/0.5mg 3 Ml Ampul.Neb INHALE RQ4H PRN Shortness of Breath Aspirin 81 mg 10/04/20 09:00 10/05/20 09:32 Aspirin Enteric Coated 81 Mg Tablet. PO 81 mg DAILY WINNIE Administration Atorvastatin Calcium 80 mg 10/04/20 09:00 10/05/20 09:32 Atorvastatin Calcium 80 Mg Tablet PO 80 mg DAILY WINNIE Administration Enoxaparin Sodium 40 mg 10/03/20 16:00 10/04/20 16:41 Enoxaparin Sodium 40 Mg/0.4 Ml Syringe SUBCUT 40 mg Q24H WINNIE Administration Fluticasone/Vilanterol 1 puff 10/04/20 11:45 10/05/20 07:51 Fluticasone/Vilanterol 200/25 Blst.W.Dev INHALE 1 puff RDAILY WINNIE Administration Furosemide 80 mg 10/05/20 17:30 Furosemide 100 Mg/10 Ml Vial IVPUSH Q12H WINNIE Protocol Insulin Human Lispro 0 unit 10/03/20 16:30 10/05/20 11:44 Insulin Lispro 100 Unit/Ml 3 Ml Vial SUBCUT 4 unit QIDACHS WINNIE Administration Protocol Pharmacy Consult 1 each 10/03/20 14:29 Consult Rx Perform Med Rec MISCELLANE ONCE PRN Consult order Ranolazine 500 mg 10/03/20 21:00 10/05/20 09:32 Ranolazine 500 Mg Tab.Er.12h PO 500 mg BID WINNIE Administration Sodium Chloride 3 ml 10/03/20 16:00 10/05/20 09:33 0.9 % Sodium Chloride Flush 3 Ml Syringe IVFLUSH 3 ml QSHIFT WINNIE Administration Labs CBC & Chem 7: 10/05/20 05:55 10/05/20 05:56 Microbiology Microbiology Results: Microbiology 10/03/20 13:11 Blood - Venous Blood Culture - Preliminary No growth after 48 hours. 10/03/20 13:11 Blood - Venous Blood Culture - Preliminary No growth after 48 hours. 10/03/20 13:11 Blood - Venous Blood Culture - Final 10/03/20 13:11 Blood - Venous Blood Culture - Final Assessment and Plan (1) Ischemic cardiomyopathy: Problem details: EF 15-20%, grade 3 diastolic dysfunction Status: Acute (2) CORA (acute kidney injury): Status: Deleted Assessment and Plan: 85M presented with low blood pressure found to have CORA 1.Syncope due to hypotension related to ischemic cardiomyopathy with an EF of 10-15% on Lopressor, Entresto, acute decompensation on iv diuresis, still has jvd elevated,somewhat diminshed breath sounds at bases. monitor bmp cardio following-seems still hypervolemic,recoemded to continue ivlasix will hold off lopressor, entresto due to boderline blood pressures. i/o is atleast 1.5 liter negative since admission if blood pressure allow will add small dose entresto in am. 2.Coronary disease Aspirin, statin, Ranexa 3.Diabe: fs mostly running between 110-150 range Continue to monitor Insulin 4. cora vs ckd: ? ckd 3 nephrology following avoid nephrotoxins.
[2020-10-05 16:41] LABS: Glucose, Whole Blood 72 mg/dL (60-115)
[2020-10-05] MEDS: Enoxaparin Sodium 40 MG/0.4 ML SYRINGE SUBCUT (17:11)
[2020-10-05 20:54] LABS: Glucose, Whole Blood 146 mg/dL (60-115)
[2020-10-05] MEDS: Acetaminophen 325 MG TABLET 650 MG PO (21:53)
[2020-10-06] VITALS (11 sets, daily range): BP systolic 97–116; BP diastolic 56–69; PULSE 77–89; RESP 12–18; TEMP 36.4–37.5; O2SAT 93–97; BMI 21.9
[2020-10-06] MEDS: Furosemide 100 MG/10 ML VIAL 80 MG IVPUSH ×2 (05:36→17:21)
[2020-10-06 06:51] LABS: Hematocrit 38.3 % (42-52); Hemoglobin 12.6 g/dl (14.0-18.0); Mean Corpuscular HGB Conc 32.9 g/dl (31.0-36.0); Mean Corpuscular Hemoglobin 32.5 pg (27.0-33.0); Mean Corpuscular Volume 98.7 fL (80-98); Mean Platelet Volume 11.6 fL (9.4-12.4); Platelet Count 160 X10*3/uL (160-400); Red Blood Count 3.88 X10*6/uL (4.60-5.80); Red Cell Distribution Width 17.5 % (11.0-16.0); White Blood Count 5.2 X10*3/uL (4.8-10.8)
[2020-10-06 07:14] LABS: Anion Gap 18 (12-20); Blood Urea Nitrogen 26 mg/dL (9-16); Calcium 8.7 mg/dL (8.4-10.2); Carbon Dioxide 24 mmol/L (22-29); Chloride 104 mmol/L (96-108); Creatinine Clr Calc Pharmacy 34.4; Estimated Glomerular Filt Rate 52; Glucose Random 150 mg/dL (60-115); Potassium 4.1 mmol/L (3.3-5.1); Sodium 142 mmol/L (135-145)
[2020-10-06 07:15] LABS: B Type Natriuretic Peptide 3449 pg/mL (<100)
[2020-10-06] MEDS: Fluticasone/Vilanterol 200/25 BLST.W.DEV 1 PUFF INHALE (07:18)
[2020-10-06 07:39] LABS: Glucose, Whole Blood 133 mg/dL (60-115)
[2020-10-06] MEDS: Aspirin Enteric Coated 81 MG TABLET.DR PO (09:31)
[2020-10-06] MEDS: Ranolazine 500 MG TAB.ER.12H PO ×2 (09:31→20:10)
[2020-10-06] MEDS: 0.9 % Sodium Chloride Flush 3 ML SYRINGE IVFLUSH ×3 (09:31→20:10)
[2020-10-06] MEDS: Atorvastatin Calcium 80 MG TABLET PO (09:31)
--- NOTE | 2020-10-06 10:23 | PM.PNCARD ---
Subjective Subjective Date of Service: 10/06/20 <ANTIONE De Santiago - Last Filed: 10/06/20 13:02> 10/06/20 <Martínez Rushing MD - Last Filed: 10/06/20 16:06> Principal diagnosis: acute on chronic systolic HF, low BPs, ischemic CMP <ANTIONE De Santiago - Last Filed: 10/06/20 13:02> Interval history: Cardiology follow up for the above, Seen at 0900. Today he reports feeling a little better . He has mild sob and slept with HOB elevated 30 degrees. Vague report of chest discomfort. No palpitations, dizziness. Edema present in legs but less. Generalized weakness. Daughter at bedside. <ANTIONE De Santiago Last Filed: 10/06/20 13:02> Review of Systems Review of Systems as above <ANTIONE De Santiago - Last Filed: 10/06/20 13:02> Yes all other systems are reviewed and are negative <ANTIONE De Santiago - Last Filed: 10/06/20 13:02> Physical Exam Vital Signs: Last Vital Signs Temp 97.6 F 10/06/20 07:35 Pulse 89 10/06/20 07:35 Resp 18 10/06/20 07:35 BP 110/65 10/06/20 07:35 Pulse Ox 94 10/06/20 07:35 Body Mass Index 21.9 <ANTIONE De Santiago - Last Filed: 10/06/20 13:02> Const General: cooperative, no acute distress, alert and awake <ANTIONE De Santiago Last Filed: 10/06/20 13:02> Orientation/consciousness: patient oriented x3 <ANTIONE De Santiago Last Filed: 10/06/20 13:02> Neck Neck: Yes normal visual inspection and Yes JVD <ANTIONE De Santiago Last Filed: 10/06/20 13:02> Resp Effort & Inspection: normal respiratory effort and able to speak in complete sentences <ANTIONE De Santiago Last Filed: 10/06/20 13:02> Auscultation: clear to auscultation bilaterally, no crackles, no rales, no rhonchi and no wheezes <SHARONA De SantiagoC - Last Filed: 10/06/20 13:02> Cardio Jugular venous distension: JVD present <SHARONA De SantiagoC - Last Filed: 10/06/20 13:02> Palpation: normal PMI <SHARONA De SantiagoC - Last Filed: 10/06/20 13:02> Rate: regular rate <SHARONA De SantiagoC - Last Filed: 10/06/20 13:02> Rhythm: regular rhythm <SHARONA De SantiagoC - Last Filed: 10/06/20 13:02> Heart sounds: S1 normal heart sound present and S2 normal heart sound present <SHARONA De Santiago - Last Filed: 10/06/20 13:02> Peripheral pulses: Peripheral pulses 2+ throughout <Venessa Palomo NP-C - Last Filed: 10/06/20 13:02> GI Inspection: Yes normal to inspection <SHARONA De SantiagoC - Last Filed: 10/06/20 13:02> Neuro General: patient oriented x3 <SHARONA De SantiagoC - Last Filed: 10/06/20 13:02> Extrem Other: +1-+2 edema of lower legs <Venessa Palomo NP- - Last Filed: 10/06/20 13:02> Results Labs and Meds Result diagrams: : 10/06/20 05:50 10/06/20 05:50 <SHARONA De SantiagoC - Last Filed: 10/06/20 13:02> Lab results: Laboratory Results - last 24 hr 10/05/20 10/05/20 10/05/20 11:20 16:13 20:33 WBC RBC Hgb Hct MCV MCH MCHC RDW Plt Count MPV Absolute Nucleated RBC Nucleated RBC % (auto) Sodium Potassium Chloride Carbon Dioxide Anion Gap BUN Creatinine Estim Creat Clear Calc Estimated GFR POC Glucose 217 H 72 146 H Random Glucose Calcium B-Natriuretic Peptide 10/06/20 10/06/20 10/06/20 05:50 05:50 05:50 WBC 5.2 RBC 3.88 L Hgb 12.6 L Hct 38.3 L MCV 98.7 H MCH 32.5 MCHC 32.9 RDW 17.5 H Plt Count 160 MPV 11.6 Absolute Nucleated RBC 0.000 Nucleated RBC % (auto) 0.0 Sodium 142 Potassium 4.1 Chloride 104 Carbon Dioxide 24 Anion Gap 18 BUN 26 H Creatinine 1.31 Estim Creat Clear Calc 34.4 Estimated GFR 52 POC Glucose Random Glucose 150 H Calcium 8.7 B-Natriuretic Peptide 3449 H 10/06/20 07:21 WBC RBC Hgb Hct MCV MCH MCHC RDW Plt Count MPV Absolute Nucleated RBC Nucleated RBC % (auto) Sodium Potassium Chloride Carbon Dioxide Anion Gap BUN Creatinine Estim Creat Clear Calc Estimated GFR POC Glucose 133 H Random Glucose Calcium B-Natriuretic Peptide <ANTIONE De Santiago - Last Filed: 10/06/20 13:02> Progress Note: A&P Assessment and plan (1) Chronic HFrEF (heart failure with reduced ejection fraction): Status: Acute <ANTIONE De Santiago - Last Filed: 10/06/20 13:02> Assessment and Plan: Hx of ischemic CMP. Admit with acute on chronic systolic HF. Last echo shows EF 10-15%, moderate to severe MR. Evidence of fluid overload this admit. Being diuresed with IV Lasix with neg balance 2.7 liters. Sat 94% on RA. Breathing mildly labored with activity. Has JVD and Leg edema on exam. Continue to diurese with IV Lasix. Strict I+O monitoring. Close monitoring of electrolyte and kidney function. Electrolyte replacement as warranted. <ANTIONE De Santiago - Last Filed: 10/06/20 13:02> Patient seen at bedside and case discussed with Venessa Palomo. Patient continues to have shortness of breath. Patient remains very emotional at this point time. Blood pressure on the lower side. Has been diuresing adequately. Poor tolerance of neurohormonal modulation is a poor prognostic sign. Patient also has having short runs of nonsustained VT. Will start low-dose metoprolol as well as Entresto therapy. Continue diuresis therapy with Lasix. Overall prognosis is guarded. However given his left bundle-branch block and progressive systolic dysfunction would benefit cardiac resynchronization therapy with improvement in his stroke volume could lead to improvement in his overall heart failure syndrome. This was discussed with him. Will transfer him to [facility] for further management of heart failure and implantation of biventricular device as an inpatient oral improve his cardiac status. This was discussed with patient and his daughter and they understand and agree. <Martínez Rushing MD - Last Filed: 10/06/20 16:06> (2) Ischemic cardiomyopathy: Problem details: EF 15-20%, grade 3 diastolic dysfunction <ANTIONE De Santiago - Last Filed: 10/06/20 13:02> Status: Acute <ANTIONE De Santiago - Last Filed: 10/06/20 13:02> Assessment and Plan: Followed as outpt through our office. He has been referred for INJURY/SAFETY HAZARD ASSESSMENT-D. 3 recent admits have delayed this process. Now admit with hypotension, weakness, HF. His Entresto and Metoprolol are on hold. BP this am 107/56. Being diuresed as above. Tele does show SR, short NSVT runs, longest 7 beats. Will restart Metoprolol at lower dose. Plan restart of Entresto when medically appropriate. Will arrange for transfer to [facility] [facility] for ongoing mgt and plan for INJURY/SAFETY HAZARD ASSESSMENT-D insertion. Pt is agreeable to this plan. Report given to [facility] hospitalist and to Nikkie MELGAR, cardiology with request for EP to see him at [facility]. [place] [facility] [place]. <ANTIONE De Santiago - Last Filed: 10/06/20 13:02> (3) LBBB (left bundle branch block): Status: Acute <ANTIONE De Santiago - Last Filed: 10/06/20 13:02> Assessment and Plan: Chronic <ANTIONE De Santiago - Last Filed: 10/06/20 13:02> (4) Non-rheumatic mitral regurgitation: Status: Acute <ANTIONE De Santiago - Last Filed: 10/06/20 13:02> Assessment and Plan: Moderate to severe MR. <ANTIONE De Santiago - Last Filed: 10/06/20 13:02> (5) Hypotension: Status: Acute <ANTIONE De Santiago - Last Filed: 10/06/20 13:02> Assessment and Plan: BP improving, still on low side <ANTIONE De Santiago - Last Filed: 10/06/20 13:02> (6) Chest pain: Status: Acute <ANTIONE De Santiago - Last Filed: 10/06/20 13:02> Assessment and Plan: Vague reports of CP. Has known hx of CAD. Recent cardiac cath shows patent graphs and OM stenosis which is managed medically. Troponins only slightly elevated and remain flat. EKG nondiagnostic for ischemia. Continue with med mgt: aspirin, atorvastatin, ranexa, restart of some metoprolol. <ANTIONE De Santiago - Last Filed: 10/06/20 13:02> (7) NSVT (nonsustained ventricular tachycardia): Status: Acute <ANTIONE De Santiago - Last Filed: 10/06/20 13:02> Assessment and Plan: Brief runs noted as above. <ANTIONE De Santiago - Last Filed: 10/06/20 13:02> Fall Risk Details Current Medications: Current Medications Generic Name Dose Route Start Last Admin Trade Name Freq PRN Reason Stop Dose Admin Acetaminophen 650 mg 10/05/20 21:34 10/05/20 21:53 Acetaminophen 325 Mg Tablet PO 650 mg Q6H PRN Administration Breakthrough Pain Albuterol/Ipratropium 3 ml 10/04/20 16:54 Albuterol/Iprat 2.5/0.5mg 3 Ml Ampul.Neb INHALE RQ4H PRN Shortness of Breath Aspirin 81 mg 10/04/20 09:00 10/06/20 09:31 Aspirin Enteric Coated 81 Mg Tablet. PO 81 mg DAILY WINNIE Administration Atorvastatin Calcium 80 mg 10/04/20 09:00 10/06/20 09:31 Atorvastatin Calcium 80 Mg Tablet PO 80 mg DAILY WINNIE Administration Enoxaparin Sodium 40 mg 10/03/20 16:00 10/05/20 17:11 Enoxaparin Sodium 40 Mg/0.4 Ml Syringe SUBCUT 40 mg Q24H WINNIE Administration Fluticasone/Vilanterol 1 puff 10/04/20 11:45 10/06/20 07:18 Fluticasone/Vilanterol 200/25 Blst.W.Dev INHALE 1 puff RDAILY WINNIE Administration Furosemide 80 mg 10/05/20 17:30 10/06/20 05:36 Furosemide 100 Mg/10 Ml Vial IVPUSH 80 mg Q12H WINNIE Administration Protocol Insulin Human Lispro 0 unit 10/03/20 16:30 10/06/20 07:35 Insulin Lispro 100 Unit/Ml 3 Ml Vial SUBCUT Not Given QIDACHS WINNIE Protocol Pharmacy Consult 1 each 10/03/20 14:29 Consult Rx Perform Med Rec MISCELLANE ONCE PRN Consult order Ranolazine 500 mg 10/03/20 21:00 10/06/20 09:31 Ranolazine 500 Mg Tab.Er.12h PO 500 mg BID WINNIE Administration Sodium Chloride 3 ml 10/03/20 16:00 10/06/20 09:31 0.9 % Sodium Chloride Flush 3 Ml Syringe IVFLUSH 3 ml QSHIFT WINNIE Administration <ANTIONE De Santiago - Last Filed: 10/06/20 13:02> Time Spent With Patient Time: Total time spent is greater than 50% in coordination of care (as documented) at patient's floor/unit and/or counseling patient: 24 <ANTIONE De Santiago - Last Filed: 10/06/20 13:02> Time with patient: 25 - 35 minutes <ANTIONE De Santiago - Last Filed: 10/06/20 13:02>
--- NOTE | 2020-10-06 11:32 | MHC.CM.PN ---
per multi dis rounds pt may be transferred to bs today
[2020-10-06 11:34] LABS: Glucose, Whole Blood 144 mg/dL (60-115)
--- NOTE | 2020-10-06 11:34 | PM.DS ---
DS: Providers Provider Date of Service: 10/06/20 Date of admission: 10/03/20 15:06 Primary care physician: Caroline Rudolph DO Consults: 10/03/20 15:05 Consult to Cardiology Routine Consulting Provider: Cassius Hodgson Reason for consultation: sycnope, cmp DS: Diagnosis Discharge Diagnosis (1) Ischemic cardiomyopathy: Status: Acute Problem details: EF 15-20%, grade 3 diastolic dysfunction (2) CORA (acute kidney injury): Status: Deleted (3) LBBB (left bundle branch block): Status: Acute (4) Near syncope: Status: Acute (5) Hypotension: Status: Acute (6) Chronic HFrEF (heart failure with reduced ejection fraction): Status: Acute DS: Medications Discharge Medications Home Medications: Home Medications Medication Instructions Recorded Confirmed Combivent Respimat 1 puff INHALATION QID 08/06/20 10/03/20 Stiolto Respimat 2 puff INHALATION DAILY 09/01/20 10/03/20 Trulicity 0.75 mg SUBCUT DIOP 09/01/20 10/03/20 aspirin 81 mg PO DAILY 09/01/20 10/03/20 atorvastatin 80 mg PO DAILY 09/01/20 10/03/20 famotidine 20 mg PO DAILY 09/01/20 10/03/20 polyvinyl alcohol [Artificial 1 drp OPHTHALMIC (EYE) Q4H PRN 09/01/20 10/03/20 Tears (polyvin alc)] ranolazine 500 mg PO BID 09/01/20 10/03/20 cholecalciferol (vitamin D3) 1 cap PO QAM 09/18/20 10/03/20 furosemide 160 mg PO BID 10/03/20 10/03/20 DS: Summary Hospital Course Hospital Course: 85M was admitted for syncope after going for walk outside, then started feeling ill so tried to walk to urgent care, but was so weak, could not make it, and came close to passing out and lay down on ground. on initialy evaulation was hypotensive and thought to be dehydrated so given some hydration. later patient appeared to be in fluid overload from acute on chronic systolic and diastolic chf, and was restarted on IV diuretics, noted to have frequent NVST 5-6 beats. patient was evaluated by cardiology and felt that he would benefit from transfer [place] [facility] [place] and possible AICD placement Time Spent with Patient Time attestation: Total time spent providing and/or coordinating discharge services: Discharge coordination time: Greater than 30 minutes Physical Exam Vital Signs: Vital Signs: Last Vital Signs Temp 98.0 F 10/06/20 11:08 Pulse 89 10/06/20 07:35 Resp 16 10/06/20 11:08 BP 107/56 L 10/06/20 11:08 Pulse Ox 94 10/06/20 11:08 Body Mass Index 21.9 GENERAL APPEARANCE: Short or breath. Frail. HEENT: unremarkable. HEAD: normocephalic, atraumatic. NECK/THYROID: no carotid bruit. Distended neck veins. SKIN: no suspicious lesions, warm and dry. HEART: S1 plus S2, holosystolic murmur at the apex. LUNGS: clear to auscultation bilaterally. ABDOMEN: Left basal crackles. EXTREMITIES: no clubbing, cyanosis. Mild edema. PERIPHERAL PULSES: equal. NEUROLOGIC: nonfocal, alert and oriented. PSYCH: mood/affect full range. DS: Data Data Completed and Pending Labs on day of discharge: Laboratory Results - last 24 hr 10/05/20 10/05/20 10/06/20 16:13 20:33 05:50 WBC 5.2 RBC 3.88 L Hgb 12.6 L Hct 38.3 L MCV 98.7 H MCH 32.5 MCHC 32.9 RDW 17.5 H Plt Count 160 MPV 11.6 Absolute Nucleated RBC 0.000 Nucleated RBC % (auto) 0.0 Sodium Potassium Chloride Carbon Dioxide Anion Gap BUN Creatinine Estim Creat Clear Calc Estimated GFR POC Glucose 72 146 H Random Glucose Calcium B-Natriuretic Peptide 10/06/20 10/06/20 10/06/20 05:50 05:50 07:21 WBC RBC Hgb Hct MCV MCH MCHC RDW Plt Count MPV Absolute Nucleated RBC Nucleated RBC % (auto) Sodium 142 Potassium 4.1 Chloride 104 Carbon Dioxide 24 Anion Gap 18 BUN 26 H Creatinine 1.31 Estim Creat Clear Calc 34.4 Estimated GFR 52 POC Glucose 133 H Random Glucose 150 H Calcium 8.7 B-Natriuretic Peptide 3449 H Preliminary micro results at discharge 10/03/20 13:11 Blood Culture - Preliminary Blood - Venous No growth after 48 hours. 10/03/20 13:11 Blood Culture - Preliminary Blood - Venous No growth after 48 hours. Discharge Plan Discharge Patient Disposition: [facility] Referrals: Caroline Rudolph DO [Primary Care Provider] - Discharge Medications: Continued Combivent Respimat 20-100 mcg/actuation Mist 1 puff INHALATION QID RF: 0 furosemide 80 mg tablet 160 mg PO BID RF: 0 polyvinyl alcohol [Artificial Tears (polyvin alc)] 1.4 % Drops 1 drp OPHTHALMIC (EYE) Q4H PRN (Reason: Dry Eye(S)) RF: 0 Trulicity 0.75 mg/0.5 mL Pen Injector 0.75 mg SUBCUT DIOP RF: 0 atorvastatin 80 mg Tablet 80 mg PO DAILY RF: 0 ranolazine 500 mg Tablet Extended Release 12 Hr 500 mg PO BID RF: 0 aspirin 81 mg Tablet,Delayed Release (Dr/Ec) 81 mg PO DAILY RF: 0 famotidine 20 mg Tablet 20 mg PO DAILY RF: 0 Stiolto Respimat 2.5-2.5 mcg/actuation Mist 2 puff INHALATION DAILY RF: 0 cholecalciferol (vitamin D3) 50 mcg (2,000 unit) capsule 1 cap PO QAM RF: 0 Discontinued nitroglycerin 0.4 mg tablet, sublingual 1 tab sublingual NEEDED RF: 0 Entresto 24-26 mg tablet 1 tab PO BID RF: 0 metoprolol tartrate 25 mg tablet 12.5 mg PO BID Qty: 60 RF: 0 Discharge Orders: Discharge Order (Routine); Ordered 10/06/20 Ordered By: Mars Spicer Activity on Discharge: As tolerated Stand Alone Forms: Patient Portal Discharge page Care Plan Goals: recovery Health Concerns: chf Plan of Treatment: [place] [facility]
--- NOTE | 2020-10-06 11:59 | MHC.CM.PN ---
pt transferred to [facility]
--- NOTE | 2020-10-06 14:36 | PC.NURSE ---
Addendum entered by Colin Humphries RN 10/06/20 17:16: Response from TALIA Palomo via tiger text, monitor BPs and give metoprolol when systolic blood pressure greater than 90 mmHg Original Note: New order for metoprolol ER 25mg. Patient blood pressure 88/52 manually. TALIA Palomo made aware. No new orders at this time. Awaiting response prior to administering metoprolol.
[2020-10-06 16:18] LABS: Glucose, Whole Blood 136 mg/dL (60-115)
[2020-10-06] MEDS: Metoprolol Succinate ER 25 MG TAB.ER.24H PO (17:20)
[2020-10-06] MEDS: Enoxaparin Sodium 40 MG/0.4 ML SYRINGE SUBCUT (17:21)
[2020-10-06 20:10] LABS: Glucose, Whole Blood 144 mg/dL (60-115)
== END 2020-10-06 20:45 | disposition short-term general hospital (02) | DRG 292 ==
LOC: HO.ED 11:13 → HO.EDOVER 15:24 → HO.IMC 19:45
PROVIDERS: Internal Medicine; Admitting Provider Internal Medicine; Emergency Provider Emergency Medicine; PCP Family Medicine; Visit Provider Internal Medicine
DX: I50.43 Acute on chronic combined systolic (congestive) and diastolic (congestive) heart failure (principal); I47.1 Supraventricular tachycardia; N17.9 Acute kidney failure, unspecified; I95.9 Hypotension, unspecified; I25.10 Atherosclerotic heart disease of native coronary artery without angina pectoris; E86.0 Dehydration; I34.0 Nonrheumatic mitral (valve) insufficiency; E11.9 Type 2 diabetes mellitus without complications; I25.5 Ischemic cardiomyopathy; K21.9 Gastro-esophageal reflux disease without esophagitis; N18.30 Chronic kidney disease, stage 3 unspecified; I44.7 Left bundle-branch block, unspecified; E78.5 Hyperlipidemia, unspecified; Z20.822 Contact with and (suspected) exposure to COVID-19; Z79.82 Long term (current) use of aspirin; Z79.899 Other long term (current) drug therapy
CPT/HCPCS: 0241U; 36415; 71045; 80048; 80053; 82947; 83605; 83735; 83880; 84484; 85025; 85027; 85610; 85730; 87040; 93005; 96360; 99284; 99285; C1758; J1650; J1940

== ENCOUNTER 2020-10-18 14:10 | Inpatient (IN) | payer OTHER, SELFPAY ==
--- NOTE | ~2020-10-18 | XR_ITS ---
EXAMINATION: XR CHEST CLINICAL INFORMATION: Weakness COMPARISON: 10/03/2020 TECHNIQUE: Frontal view of the chest was obtained. FINDINGS: A CTA overlies the left pectoral region with 3 leads, terminating in the right atrium, right ventricle, and the coronary sinus. Sternal wires and surgical clips overlie the chest. Cardiac leads are present. Cardiac silhouette is mildly enlarged and unchanged from prior. Pulmonary vasculature is normal. Lungs appear clear. No consolidation, pneumothorax, or pleural effusion. No acute osseous findings. XR/XR chest 1V IMPRESSION: 1. Interval placement of a triple lead AICD. No pneumothorax. 2. Cardiomegaly, unchanged. No acute pulmonary findings.
--- NOTE | ~2020-10-18 | XR_ITS ---
EXAMINATION: XR CHEST CLINICAL INFORMATION: Rales, assess for CHF COMPARISON: Chest radiographs 10/18/2020, 10/03/2020, 09/17/2020 TECHNIQUE: 2 views of the chest were obtained. FINDINGS: There is enlarged cardiopericardial silhouette with sternotomy wires, surgical clips, and multi wire AICD similar to prior studies. There is fullness of the central vasculature with small bibasilar effusions, new from recent imaging 10/18/2020. There is no lobar or segmental airspace consolidation. Subsegmental atelectasis again noted left midlung zone. XR/XR chest 2V IMPRESSION: Interval mild pulmonary vascular congestion with small bibasilar effusions, new from prior study 10/18/2020.
--- NOTE | ~2020-10-18 | NM_ITS ---
EXAMINATION: [place] BILIARY TRACT IMAGING STUDY CLINICAL INFORMATION: Abdominal pain. COMPARISON: Abdominal ultrasound dated 10/18/2020. TECHNIQUE: Serial gamma scintillation camera images were obtained over the abdomen for a total observation period of 120 minutes following the intravenous administration of 5.0 mCi Tc-99m Mebrofenin. FINDINGS: There is good concentration of activity in the liver by 5 minutes post injection. Biliary activity is visualized by 10 minutes. Small bowel is well visualized by 90 minutes. The gallbladder is well visualized by 25 minutes. NM/NM hepatobiliary wo pharm IMPRESSION: * Patent cystic duct excludes acute calculus cholecystitis. * Delayed biliary to small bowel transit time of 90 minutes. If the patient has not received narcotics prior to the examination, this could reflect biliary dyskinesia and/or sphincter of Oddi spasm.
--- NOTE | ~2020-10-18 | US_ITS ---
EXAMINATION: US ABDOMEN (LIVER), DOPPLER CLINICAL INFORMATION: Abdominal pain. Elevated LFTs. Assess for patency hepatic veins. COMPARISON: Radionuclide hepatobiliary imaging study 10/19/2020, CT abdomen noncontrast 10/18/2020, ultrasound abdomen limited 09/18/2020. TECHNIQUE: Ultrasound of the upper abdomen is targeted to the liver is plain. Grayscale imaging and color Doppler are performed along with spectral Doppler. Jewelry Store Manager notes technically difficult exam due to respiratory motion. FINDINGS: The liver is smooth in contour and homogeneous in echogenicity. No intrahepatic ductal dilatation. No visible focal hepatic parenchymal lesion. There is trace ascites upper abdomen subphrenic space. Hepatic veins: The left, middle, and right hepatic veins are patent with flow towards the heart. The cava is patent. Portal veins: The main portal vein, left portal vein, and right portal vein are patent with flow towards the liver. Hepatic artery: There is antegrade flow in the main hepatic artery, 49 cm/s. There is antegrade flow seen in the left hepatic artery. Splenic vein: The main splenic vein is patent with flow towards the liver. US/US duplex arterial venous comp IMPRESSION: 1. Hepatic veins patent with flow towards the heart. 2. Portal veins patent with flow towards the liver. Splenic vein patent. 3. Hepatic artery patent, antegrade flow. 4. Trace ascites subphrenic region.
--- NOTE | ~2020-10-18 | CT_ITS ---
EXAMINATION: CT ABDOMEN AND PELVIS WITHOUT CONTRAST CLINICAL INFORMATION: Vomiting, epigastric pain, fevers COMPARISON: Ultrasound 09/08/2020 TECHNIQUE: Multidetector volumetric imaging was performed from the superior aspect of the liver through the pubic symphysis. Sagittal and coronal reformatted images were obtained on the technologist's workstation. This CT examination was performed using dose optimization techniques as appropriate, variously including the following: *Automated exposure control *Adjustment of mA and/or kV according to patient size (this includes techniques or standardized protocols for targeted exams where dose is matched to indication/reason for exam; i.e. extremities or head) *Use of iterative reconstruction technique DLP: 396 mGy-cm FINDINGS: Study is limited by lack of intravenous contrast and patient respiratory motion during the scan. LUNG BASES: Small bilateral pleural effusions measuring simple fluid density. Left greater than right bibasilar atelectasis. Cardiomegaly. Partially imaged pacer wires. Trace pericardial fluid. LIVER, GALLBLADDER, AND BILIARY TREE: The liver is shrunken with a subtly nodular appearance suggesting cirrhosis. There is perihepatic ascites. Lack of IV contrast limits evaluation but no gross focal liver lesion is seen. The gallbladder is partially distended with high density material which could represent hyperdense bile or sludge. No calcified gallstones seen. No biliary ductal dilatation. PANCREAS: Limited noncontrast evaluation of the pancreas shows no mass or peripancreatic fluid. SPLEEN: There are a few calcifications within the spleen, possibly vascular. No splenomegaly or focal lesion seen. ADRENAL GLANDS: No adrenal mass. KIDNEYS AND URETERS: There are 2 to 3 mm left lower pole calcifications which could represent nonobstructing calculi. Likely vascular calcifications in the elian of both kidneys. No hydronephrosis or definite renal mass. BLADDER: Unremarkable. GASTROINTESTINAL TRACT: Stomach is collapsed with wall thickening likely due to underdistention. Small bowel nondilated. Normal appendix. Colonic diverticulosis without evidence of colitis or diverticulitis. ABDOMINAL WALL: There is fluid in the right inguinal canal. LYMPH NODES: No lymphadenopathy. VASCULAR: Circumferential calcified atherosclerotic changes of the aorta. There are displaced intimal calcifications in the suprarenal abdominal aorta suggesting a chronic dissection. PELVIC VISCERA: Enlarged lobular prostate with calcifications in the left prostate. OSSEOUS STRUCTURES: Multilevel degenerative changes of the lumbar spine. No acute or suspicious osseous abnormality. CT/CT abdomen pelvis wo con IMPRESSION: No acute CT findings. Small bilateral pleural effusions. Cardiomegaly. The liver is shrunken with a subtly nodular appearance suggesting cirrhosis. There is a small volume of perihepatic and perisplenic ascites.
--- NOTE | ~2020-10-18 | US_ITS ---
EXAMINATION: US ABDOMEN LIMITED CLINICAL INFORMATION: Right upper quadrant pain. Elevated LFTs. COMPARISON: CT abdomen/pelvis dated 10/18/2020. TECHNIQUE: Real-time imaging of the right upper quadrant abdominal viscera. FINDINGS: PANCREAS: The visualized pancreatic head and body are unremarkable. The tail is obscured by overlying bowel gas. LIVER: The liver is normal in size. The liver contour is normal. There is diffuse increased liver parenchymal echogenicity, consistent with hepatic steatosis. No focal hepatic lesion. There is no intrahepatic biliary duct dilatation seen. GALLBLADDER: Mildly distended. Layering gallbladder sludge and stones. Mild gallbladder wall thickening with trace pericholecystic free fluid. Findings can be seen in the setting of an acute cholecystitis. COMMON BILE DUCT: Normal in caliber measuring 0.4 cm in diameter. RIGHT KIDNEY: Normal. No hydronephrosis. No renal calculi or focal parenchymal lesions. The kidney measures 8.9 cm in maximum dimension. FREE FLUID: None. US/US abdomen limited IMPRESSION: Cholelithiasis with gallbladder wall thickening and pericholecystic free fluid, consistent with an acute cholecystitis.
--- NOTE | 2020-10-18 14:19 | ED.DIZZY ---
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 consultant Mode of arrival: EMS History of Present Illness HPI Narrative: 85 yo male from home with reports of dizziness and weakness VNA found him to be 80/50s EMS gave 100cc bolus up to 100/60s reports of vomiting and dizziness, has hx of CHF EF 10% just had biventricular device [place] [facility] [place], LBBB, hypotension at baseline, NSVT, chronic multivessel disease, has poor prognosis given his CHF per Cardiology notes, no longer on lasix but cannot tell me why, he states he lost 11lbs MD elicited complaint: dizziness, lightheadedness and other (nausea, vomiting, BP 80/50) Onset (ago): day(s) (4) Timing: gradual onset Severity: similar to previous episodes Description: lightheadedness and other (fatigue) Context: recent illness History of similar symptoms: Yes Exacerbating factors: movement/ambulation Relieving factors: nothing Associated symptoms: nausea, vomiting, fever, malaise, shortness of breath, weakness and chills Related Data Home Medications Medication Instructions Recorded Confirmed Combivent Respimat 1 puff INHALATION QID 08/06/20 10/03/20 Stiolto Respimat 2 puff INHALATION DAILY 09/01/20 10/03/20 Trulicity 0.75 mg SUBCUT DIOP 09/01/20 10/03/20 aspirin 81 mg PO DAILY 09/01/20 10/03/20 atorvastatin 80 mg PO DAILY 09/01/20 10/03/20 famotidine 20 mg PO BID 09/01/20 10/03/20 polyvinyl alcohol [Artificial 1 drp OPHTHALMIC (EYE) Q4H PRN 09/01/20 10/03/20 Tears (polyvin alc)] ranolazine 500 mg PO BID 09/01/20 10/03/20 cholecalciferol (vitamin D3) 1 cap PO QAM 09/18/20 10/03/20 furosemide 40 mg PO BID 10/03/20 10/03/20 metoprolol succinate 1 tab PO QAM 10/18/20 Allergies Allergy/AdvReac Type Severity Reaction Status Date / Time No Known Allergies Allergy Unknown NOT Verified 10/03/20 11:18 APPLICABLE Review of Systems Review of Systems: Constitutional : No Weight loss, No Fever, No Chills, No Fatigue, No Malaise ENT/Mouth : No sore throat, No Rhinorrhea Eyes: No Eye Pain, No Swelling, No Redness Cardiovascular : No Chest Pain, pos SOB, No Dyspnea on Exertion, No Orthopnea, No Edema, No Palpitations Respiratory : pos Cough, pos Sputum, No Wheezing Gastrointestinal : pos Nausea, pos Vomiting, No Diarrhea, No Constipation, No abdominal Pain, No Hematochezia, No Melena Genitourinary : No Dysuria, No Urinary Frequency, No Hematuria, Musculoskeletal : No joint pain, No Myalgias, No Joint Swelling Skin : No Skin Lesions, No rash Neuro : pos Weakness, No Numbness, No Dizziness, No Headache Psych : No Anxiety/Panic, No Depression Heme/Lymph: No Bruising, No Bleeding,No Lymphadenopathy Endocrine : No Polyuria, No Polydipsia All other systems reviewed and are negative PMFSH Past Medical History Attestation statement: The following information was validated with the patient. Medical History Atherosclerotic cardiovascular disease COPD (chronic obstructive pulmonary disease) Diabetes mellitus GERD (gastroesophageal reflux disease) History of myocardial infarction Hyperlipidemia Ischemic cardiomyopathy LBBB (left bundle branch block) Non-rheumatic mitral regurgitation Pulmonary hypertension Surgical History Hx of CABG S/P CABG x 3 Family History Family History Father No problems noted. Mother No problems noted. Social History Social History Household Members: None Housing: Apartment Alcohol intake: never Smoking Status: Never smoker Tobacco Type: Cigarette Second Hand Smoke Exposure: No Use of substances other than those prescribed or required for medical reasons: No Advance Directives: No Advance Directives Information Provided: Yes service: No Current occupational status: retired Physical Exam Vital Signs: Vital Signs: Last Vital Signs Temp 98.4 F 10/18/20 14:20 Pulse 70 10/18/20 15:15 Resp 26 H 10/18/20 15:15 BP 102/59 L 10/18/20 15:15 Pulse Ox 100 10/18/20 15:15 Body Mass Index 22.3 Appearance: Alert. Oriented X3. No acute distress. Eyes: Pupils equal, round and reactive to light. ENT: Pharynx normal. temporal wasting Neck: Normal inspection. Neck supple. CVS: Normal heart rate and rhythm. Pulses normal. Respiratory: No respiratory distress. Breath sounds coarse junky cough noted, fine rales in the bases Abdomen: Soft and mild epigastric ttp Skin: Skin warm and dry. Normal skin color. Normal skin turgor. Extremities: No lower extremity edema. No calf ttp Neuro: Oriented X 3. No motor deficit. No sensory deficit. Course Course Course Narrative: DC on 10/13 reports DC on 40mg lasix BID pateint's Cr at [facility] 1.31, he is up to 2.12 so CORA with elevated BUN higher than baseline, LFTs are also elevated suspect low BPs due to over diuresis and not infection or severe sepsis given LFTs will obtain US to evaluate GB signed out to Dr. Lambert pending US anticipate admission for CORA, weakness, abdominal pain MDM - Dizziness MDM Narrative Medical decision making narrative: 85 yo male from home with reports of dizziness and weakness VNA found him to be 80/50s EMS gave 100cc bolus up to 100/60s reports of vomiting and dizziness, has hx of CHF EF 10% just had biventricular device placed [place] [facility] [place], LBBB, hypotension at baseline, NSVT, chronic multivessel disease, has poor prognosis given his CHF per Cardiology notes, no longer on lasix but cannot tell me why, he states he lost 11lbs comes in with 4 days of weakness low BPs cough subj fevers at this time will need labs, CT scan of abdomen for obstruction, CXR, gentle fluid boluses 250cc given EF but he is 11lbs down and has no LE edema, possible over diuresis dispo per results and findings, the patient doesn't seem to understand the severeity of his ischemic cardiomyopathy. Lab Data Result diagrams: 10/18/20 15:12 10/18/20 15:12 Labs: Lab Results 10/18/20 10/18/20 10/18/20 Range/Units 15:11 15:11 15:12 WBC 5.9 (4.8-10.8) X10*3/uL RBC 4.03 L (4.60-5.80) X10*6/uL Hgb 13.4 L (14.0-18.0) g/dl Hct 39.5 L (42-52) % MCV 98.0 (80-98) fL MCH 33.3 H (27.0-33.0) pg MCHC 33.9 (31.0-36.0) g/dl RDW 17.2 H (11.0-16.0) % Plt Count 143 L (160-400) X10*3/uL MPV 11.6 (9.4-12.4) fL Immature Gran % (Auto) 0.5 H (0.0-0.4) % Neut % (Auto) 69.6 (45-73) % Lymph % (Auto) 14.4 L (20-40) % [place] % (Auto) 14.5 H (2-11) % Eos % (Auto) 0.5 (0-4) % Baso % (Auto) 0.5 (0-2) % Lymph # (Auto) 0.9 L (1.2-4.9) X10*3/uL [place] # (Auto) 0.9 (0.1-1.2) X10*3/uL Eos # (Auto) 0.0 (0.0-0.4) X10*3/uL Baso # (Auto) 0.0 (0.0-0.2) X10*3/uL Abs Immat Gran (auto) 0.03 (0.00-0.03) X10*3/uL Absolute Neuts (auto) 4.1 (2.0-8.3) X10*3/uL Absolute Nucleated RBC 0.000 (0.0-0.012) X10*3/uL Nucleated RBC % (auto) 0.0 (0.0-0.2) /100WBC PT (10.8-13.0) SEC INR (0.9-1.1) APTT (24.1-38.0) SEC Sodium (135-145) mmol/L Potassium (3.3-5.1) mmol/L Chloride (96-108) mmol/L Carbon Dioxide (22-29) mmol/L Anion Gap (12-20) BUN (9-16) mg/dL Creatinine (0.5-1.4) mg/dL Estim Creat Clear Calc Estimated GFR Random Glucose (60-115) mg/dL Lactic Acid (0.5-2.0) mmol/L Calcium (8.4-10.2) mg/dL Magnesium (1.6-2.6) mg/dL Total Bilirubin (0.0-1.0) mg/dL Direct Bilirubin (0.0-0.5) mg/dL AST (5-37) U/L ALT (0-40) U/L Alkaline Phosphatase (39-117) U/L Troponin I High Sens 82.8 H (<3.5-35.0) ng/L C-Reactive Protein (< or = 0.50) mg/dL B-Natriuretic Peptide 4308 H (<100) pg/mL Total Protein (6.5-8.0) g/dL Albumin (3.5-5.0) g/dL Lipase (8-78) U/L COVID-19 (PETE) Negative (Negative) COVID-19 Clin Com See Note 10/18/20 10/18/20 10/18/20 Range/Units 15:12 15:12 15:12 WBC (4.8-10.8) X10*3/uL RBC (4.60-5.80) X10*6/uL Hgb (14.0-18.0) g/dl Hct (42-52) % MCV (80-98) fL MCH (27.0-33.0) pg MCHC (31.0-36.0) g/dl RDW (11.0-16.0) % Plt Count (160-400) X10*3/uL MPV (9.4-12.4) fL Immature Gran % (Auto) (0.0-0.4) % Neut % (Auto) (45-73) % Lymph % (Auto) (20-40) % [place] % (Auto) (2-11) % Eos % (Auto) (0-4) % Baso % (Auto) (0-2) % Lymph # (Auto) (1.2-4.9) X10*3/uL [place] # (Auto) (0.1-1.2) X10*3/uL Eos # (Auto) (0.0-0.4) X10*3/uL Baso # (Auto) (0.0-0.2) X10*3/uL Abs Immat Gran (auto) (0.00-0.03) X10*3/uL Absolute Neuts (auto) (2.0-8.3) X10*3/uL Absolute Nucleated RBC (0.0-0.012) X10*3/uL Nucleated RBC % (auto) (0.0-0.2) /100WBC PT 16.8 H (10.8-13.0) SEC INR 1.4 H (0.9-1.1) APTT 33.9 (24.1-38.0) SEC Sodium 137 (135-145) mmol/L Potassium 4.7 (3.3-5.1) mmol/L Chloride 99 (96-108) mmol/L Carbon Dioxide 26 (22-29) mmol/L Anion Gap 17 (12-20) BUN 45 H D (9-16) mg/dL Creatinine 2.12 H (0.5-1.4) mg/dL Estim Creat Clear Calc 21.6 Estimated GFR 30 Random Glucose 165 H (60-115) mg/dL Lactic Acid 1.9 (0.5-2.0) mmol/L Calcium 9.5 D (8.4-10.2) mg/dL Magnesium 2.7 H (1.6-2.6) mg/dL Total Bilirubin 2.4 H (0.0-1.0) mg/dL Direct Bilirubin 1.0 H (0.0-0.5) mg/dL AST 248 H (5-37) U/L ALT 271 H (0-40) U/L Alkaline Phosphatase 137 H D (39-117) U/L Troponin I High Sens (<3.5-35.0) ng/L C-Reactive Protein 2.84 H (< or = 0.50) mg/dL B-Natriuretic Peptide (<100) pg/mL Total Protein 6.7 D (6.5-8.0) g/dL Albumin 4.1 (3.5-5.0) g/dL Lipase 51 (8-78) U/L COVID-19 (PETE) (Negative) COVID-19 Clin Com ECG Data Attestation: I personally reviewed and interpreted this ECG as follows: ECG interpretation date: 10/18/20 ECG interpretation time: 15:33 Interpretation: Rate: 70 Rhythm: ventricular paced rhythm [place]: left Normal P waves. Normal WINNIE. wide QRS complex ST T wave : nonspecific, no DEBRA qTC: normal prior studies: no acute ischemia The study has been interpreted contemporaneously by me. . Discharge Plan Discharge Clinical Impression: Weakness, Elevated liver function tests, CORA (acute kidney injury), Abdominal pain Patient Disposition: Admitted As Inpatient Prescriptions: No Action Combivent Respimat 20-100 mcg/actuation Mist 1 puff INHALATION QID RF: 0 furosemide 80 mg tablet 40 mg PO BID RF: 0 metoprolol succinate 25 mg tablet extended release 24 hr 1 tab PO QAM RF: 0 polyvinyl alcohol [Artificial Tears (polyvin alc)] 1.4 % Drops 1 drp OPHTHALMIC (EYE) Q4H PRN (Reason: Dry Eye(S)) RF: 0 Trulicity 0.75 mg/0.5 mL Pen Injector 0.75 mg SUBCUT DIOP RF: 0 atorvastatin 80 mg Tablet 80 mg PO DAILY RF: 0 ranolazine 500 mg Tablet Extended Release 12 Hr 500 mg PO BID RF: 0 aspirin 81 mg Tablet,Delayed Release (Dr/Ec) 81 mg PO DAILY RF: 0 famotidine 20 mg Tablet 20 mg PO BID RF: 0 Stiolto Respimat 2.5-2.5 mcg/actuation Mist 2 puff INHALATION DAILY RF: 0 cholecalciferol (vitamin D3) 50 mcg (2,000 unit) capsule 1 cap PO QAM RF: 0
[2020-10-18 14:20] VITALS: BP 100/60; BP 95/55; PULSE 70; PULSE 71; RESP 22; TEMP 36.9; O2SAT 96; O2SAT 98; BMI 22.3
--- NOTE | 2020-10-18 14:32 | ECG_ITS ---
Test Reason : WEAKNESS Blood Pressure : / mmHG Vent. Rate : 070 BPM Atrial Rate : 070 BPM P-R Int : 146 ms QRS Dur : 176 ms QT Int : 544 ms P-R-T Axes : 084 -27 -29 degrees QTc Int : 587 ms Atrial-sensed ventricular-paced rhythm Abnormal ECG When compared with ECG of 03-OCT-2020 11:08, Electronic ventricular pacemaker has replaced Sinus rhythm Referred By: Karishma Cuevas Electronically Signed By:Cassius Hodgson
[2020-10-18] MEDS: 0.9 % Sodium Chloride 500 ML 250 ML IV (14:39)
[2020-10-18] MEDS: ondansetron HCL 4 MG/2 ML VIAL IVPUSH (14:46)
[2020-10-18 15:15] VITALS: BP 102/59; PULSE 70; RESP 26; O2SAT 100
[2020-10-18 15:18] LABS: MANUAL DIFF FLAG NO
[2020-10-18 15:21] LABS: Basophils Percent Auto 0.5 % (0-2); Eosinophils Percent Auto 0.5 % (0-4); Hematocrit 39.5 % (42-52); Hemoglobin 13.4 g/dl (14.0-18.0); Imm Gran Abs Auto 0.03 X10*3/uL (0.00-0.03); Imm Gran Pct Auto 0.5 % (0.0-0.4); Lymphocytes Absolute Auto 0.9 X10*3/uL (1.2-4.9); Lymphocytes Percent Auto 14.4 % (20-40); Mean Corpuscular HGB Conc 33.9 g/dl (31.0-36.0); Mean Corpuscular Hemoglobin 33.3 pg (27.0-33.0); Mean Platelet Volume 11.6 fL (9.4-12.4); Monocytes Absolute Auto 0.9 X10*3/uL (0.1-1.2); Monocytes Percent Auto 14.5 % (2-11); Neutrophils Absolute Auto 4.1 X10*3/uL (2.0-8.3); Neutrophils Percent Auto 69.6 % (45-73); Platelet Count 143 X10*3/uL (160-400); Red Blood Count 4.03 X10*6/uL (4.60-5.80); Red Cell Distribution Width 17.2 % (11.0-16.0); White Blood Count 5.9 X10*3/uL (4.8-10.8)
[2020-10-18 15:27] LABS: INTERNATIONAL NORM RATIO 1.4 (0.9-1.1); Prothrombin Time 16.8 SEC (10.8-13.0)
[2020-10-18 15:29] LABS: Partial Thromboplastin Time 33.9 SEC (24.1-38.0)
[2020-10-18 15:38] LABS: COVID-19 Test Negative (Negative)
[2020-10-18 15:43] LABS: Lactic Acid 1.9 mmol/L (0.5-2.0)
[2020-10-18 15:50] LABS: Alanine Aminotransferase 271 U/L (0-40); Albumin Level 4.1 g/dL (3.5-5.0); Alkaline Phosphatase 137 U/L (39-117); Anion Gap 17 (12-20); Aspartate Amino Transferase 248 U/L (5-37); Bilirubin Total 2.4 mg/dL (0.0-1.0); Blood Urea Nitrogen 45 mg/dL (9-16); C Reactive Protein 2.84 mg/dL (< or = 0.50); Calcium 9.5 mg/dL (8.4-10.2); Carbon Dioxide 26 mmol/L (22-29); Chloride 99 mmol/L (96-108); Creatinine Clr Calc Pharmacy 21.6; Estimated Glomerular Filt Rate 30; Glucose Random 165 mg/dL (60-115); Lipase 51 U/L (8-78); Magnesium 2.7 mg/dL (1.6-2.6); Potassium 4.7 mmol/L (3.3-5.1); Sodium 137 mmol/L (135-145); Total Protein 6.7 g/dL (6.5-8.0)
[2020-10-18 16:03] LABS: Troponin-I High Sensitivity 82.8 ng/L (<3.5-35.0)
[2020-10-18 16:18] LABS: B Type Natriuretic Peptide 4308 pg/mL (<100)
[2020-10-18 17:45] VITALS: BP 94/54; PULSE 68; RESP 14; TEMP 36.4; O2SAT 98
[2020-10-18] MEDS: Piperacillin Sodium/Tazobactam 3.375 GM in 0.9 % Sodium Chloride 50 ML IV (18:24)
--- NOTE | 2020-10-18 21:39 | P.HPHOSP_ITS ---
History of Present Illness Date of Service: 10/18/20 Chief Complaint: Abdominal pain 85-year-old male with a past medical history of hypertension, hyperlipidemia, diabetes, CAD, COPD, CHF with EF of 10%, recent AICD placement, history of CABG, left bundle branch block, mitral regurgitation, pulmonary hypertension presented to the hospital with a chief complaint of nausea vomiting and abdominal discomfort over the past 4-5 days. Mentions that he has been having vomitus and unable to keep anything down. Denies any diarrhea. Denies any blood in the vomitus. Denies any chest pain. Complains of dizziness. Denies any fever chills cough. Review of all other systems is negative except mentioned above ER course: Per ER team patient noted to have right upper quadrant tenderness; ultrasound and CT scan consistent with acute cholecystitis. ER team spoke to Dr. Alcaraz from General surgery, who mentioned given the patient's cardiac history not a candidate for surgery, recommended cholecystostomy tube in the morning. Patient was given IV antibiotics. Admitted to the hospital [facility] Medical History Atherosclerotic cardiovascular disease COPD (chronic obstructive pulmonary disease) Diabetes mellitus GERD (gastroesophageal reflux disease) History of myocardial infarction Hyperlipidemia Ischemic cardiomyopathy LBBB (left bundle branch block) Non-rheumatic mitral regurgitation Pulmonary hypertension Family History Father No problems noted. Mother No problems noted. Surgical History Hx of CABG S/P CABG x 3 Social History Household Members: None Housing: Apartment Alcohol intake: never Smoking Status: Never smoker Tobacco Type: Cigarette Second Hand Smoke Exposure: No service: No Current occupational status: retired Meds Allergies Allergy/AdvReac Type Severity Reaction Status Date / Time No Known Allergies Allergy Unknown NOT Verified 10/27/20 11:52 APPLICABLE Active Medications: Current Medications Generic Name Dose Route Start Last Admin Trade Name Freq PRN Reason Stop Dose Admin Acetaminophen 650 mg 10/18/20 21:33 Acetaminophen 325 Mg Tablet PO Q6H PRN Pain, Mild (Pain Scale 1-3) Albuterol/Ipratropium 3 ml 10/18/20 21:37 Albuterol/Iprat 2.5/0.5mg 3 Ml Ampul.Neb INHALE RQ4H PRN Shortness of Breath/Wheezing Artificial Tears 1 drop 10/18/20 21:37 Artificial Tears 15 Ml Drops EYE-BOTH Q4H PRN Dry Eye(S) Aspirin 81 mg 10/19/20 09:00 Aspirin Enteric Coated 81 Mg Tablet.Dr PO DAILY [facility] Atorvastatin Calcium 80 mg 10/19/20 09:00 Atorvastatin Calcium 80 Mg Tablet PO DAILY [facility] Famotidine 20 mg 10/19/20 09:00 Famotidine 20 Mg Tablet PO BID [facility] Furosemide 40 mg 10/19/20 09:00 Furosemide 40 Mg Tablet PO BID [facility] Protocol Piperacillin Sod/Tazobactam 50 mls @ 100 mls/hr 10/18/20 21:45 Sod 3.375 gm/ Sodium Chloride IV Q6H [facility] Insulin Human Lispro 0 unit 10/19/20 07:30 Insulin Lispro 100 Unit/Ml 3 Ml Vial SUBCUT QIDACHS [facility] Protocol Metoprolol Succinate 25 mg 10/18/20 21:45 Metoprolol Succinate Er 25 Mg Tab.Er.24h PO QAM [facility] Protocol Pharmacy Consult 1 each 10/18/20 14:31 Consult Rx Perform Med Rec MISCELLANE ONCE PRN Consult order Ranolazine 500 mg 10/19/20 09:00 Ranolazine 500 Mg Tab.Er.12h PO BID [facility] Senna 17.2 mg 10/18/20 21:33 Sennosides 8.6 Mg Tablet PO BEDTIME PRN Constipation Sodium Chloride 3 ml 10/19/20 00:00 0.9 % Sodium Chloride Flush 3 Ml Syringe IVFLUSH QSHIFT [facility] Vitamin D 50 mcg 10/18/20 21:45 Cholecalciferol (Vitamin D3) 25 Mcg Tablet PO QAM [facility] Home Medications Medication Instructions Recorded Confirmed Last Taken Type Combivent Respimat 1 puff INHALATION QID 08/06/20 10/27/20 08/06/20 History Stiolto Respimat 2 puff INHALATION DAILY 09/01/20 10/27/20 Unknown History Trulicity 0.75 mg SUBCUT DIOP 09/01/20 10/27/20 Unknown History aspirin 81 mg PO DAILY 09/01/20 10/27/20 Unknown History atorvastatin 80 mg PO DAILY 09/01/20 10/27/20 Unknown History famotidine 20 mg PO BID 09/01/20 10/27/20 Unknown History polyvinyl alcohol [Artificial 1 drp OPHTHALMIC (EYE) Q4H PRN 09/01/20 10/27/20 Unknown History Tears (polyvin alc)] ranolazine 500 mg PO BID 09/01/20 10/27/20 Unknown History cholecalciferol (vitamin D3) 1 cap PO QAM 09/18/20 10/27/20 Unknown History Physical Exam Vital Signs and Narrative: Vital Signs: Last Vital Signs Temp 97.6 F 10/18/20 17:45 Pulse 68 10/18/20 17:45 Resp 14 10/18/20 17:45 BP 94/54 L 10/18/20 17:45 Pulse Ox 98 10/18/20 17:45 Body Mass Index 22.3 Gen: Appears be in no acute distress HEENT: NCAT, Moist mucosa. Pulmonary: Vesicular breath sounds, fair air entry CVS: Normal S1-S2 Abdomen: BS+, Soft, mildly tender in the right upper quadrant; no guarding no rigidity Extremities: Warm well perfused Neuro: Alert and awake. Results Labs CBC and Chem 7: 10/23/20 05:51 10/23/20 05:51 Labs: Laboratory Results - last 24 hr 10/18/20 10/18/20 10/18/20 15:11 15:11 15:12 MCV 98.0 MCH 33.3 H MCHC 33.9 RDW 17.2 H Plt Count 143 L MPV 11.6 Immature Gran % (Auto) 0.5 H Neut % (Auto) 69.6 Lymph % (Auto) 14.4 L [place] % (Auto) 14.5 H Eos % (Auto) 0.5 Baso % (Auto) 0.5 Lymph # (Auto) 0.9 L [place] # (Auto) 0.9 Eos # (Auto) 0.0 Baso # (Auto) 0.0 Abs Immat Gran (auto) 0.03 Absolute Neuts (auto) 4.1 Absolute Nucleated RBC 0.000 Nucleated RBC % (auto) 0.0 PT INR APTT Anion Gap Estim Creat Clear Calc Estimated GFR Random Glucose Lactic Acid Calcium Magnesium Total Bilirubin Direct Bilirubin AST ALT Alkaline Phosphatase Troponin I High Sens 82.8 H C-Reactive Protein B-Natriuretic Peptide 4308 H Total Protein Albumin Lipase COVID-19 (PETE) Negative COVID-19 Clin Com See Note 10/18/20 10/18/20 10/18/20 15:12 15:12 15:12 MCV MCH MCHC RDW Plt Count MPV Immature Gran % (Auto) Neut % (Auto) Lymph % (Auto) [place] % (Auto) Eos % (Auto) Baso % (Auto) Lymph # (Auto) [place] # (Auto) Eos # (Auto) Baso # (Auto) Abs Immat Gran (auto) Absolute Neuts (auto) Absolute Nucleated RBC Nucleated RBC % (auto) PT 16.8 H INR 1.4 H APTT 33.9 Anion Gap 17 Estim Creat Clear Calc 21.6 Estimated GFR 30 Random Glucose 165 H Lactic Acid 1.9 Calcium 9.5 D Magnesium 2.7 H Total Bilirubin 2.4 H Direct Bilirubin 1.0 H AST 248 H ALT 271 H Alkaline Phosphatase 137 H D Troponin I High Sens C-Reactive Protein 2.84 H B-Natriuretic Peptide Total Protein 6.7 D Albumin 4.1 Lipase 51 COVID-19 (PETE) COVID-19 Clin Com Imaging Radiologist's Impressions: Impressions Chest X-Ray 10/18/20 14:33 IMPRESSION: 1. Interval placement of a triple lead AICD. No pneumothorax. 2. Cardiomegaly, unchanged. No acute pulmonary findings. Abdomen/Pelvis CT 10/18/20 14:51 IMPRESSION: No acute CT findings. Small bilateral pleural effusions. Cardiomegaly. The liver is shrunken with a subtly nodular appearance suggesting cirrhosis. There is a small volume of perihepatic and perisplenic ascites. Abdomen Ultrasound 10/18/20 16:12 IMPRESSION: Cholelithiasis with gallbladder wall thickening and pericholecystic free fluid, consistent with an acute cholecystitis. Assessment and Plan (1) Acute cholecystitis: Status: Acute 85-year-old male with a past medical history of hypertension, hyperlipidemia, diabetes, coronary artery disease status post CABG, CHF with EF of 10% status post AICD placed recently, pulmonary hypertension, left bundle branch block presented to the hospital today with a chief complaint of nausea vomiting and abdominal discomfort. Noted to have acute cholecystitis and AKA. Admitted to the hospital for further management. Acute cholecystitis: General surgery was made aware, recommended cholecystostomy tube in the morning. Continued on Zosyn. Follow up cultures. NPO. Hypertension: Patient's blood pressure runs on the soft side at baseline. Given gentle fluids in the ER. Will continue to monitor. Patient currently me ntating well. Diabetes: Insulin sliding scale CORA: Likely cardiorenal. Nephrology consult. Avoid nephrotoxins. History of CHF: Currently stable. Consult Cardiology for preop eval before the procedure. Patient currently denies any chest pain or shortness of breath. For all other chronic conditions, home medications will be continued DVT prophylaxis: SCD boots Code status: Full code (2) CORA (acute kidney injury): Status: Acute
[2020-10-18 23:50] VITALS: BP 90/57; PULSE 68; RESP 20; TEMP 36.6; O2SAT 98
[2020-10-18] MEDS: Piperacillin Sodium/Tazobactam 2.25 GM in 0.9 % Sodium Chloride 50 ML IV (23:54)
[2020-10-18] MEDS: 0.9 % Sodium Chloride Flush 3 ML SYRINGE IVFLUSH (23:55)
[2020-10-19] VITALS (10 sets, daily range): BP systolic 98–131; BP diastolic 57–82; PULSE 66–76; RESP 18–20; TEMP 36–36.3; O2SAT 92–98
[2020-10-19 03:16] LABS: Glucose Urine UA NEG (NEG); Leukocyte Esterase Urine NEG (NEG); Nitrite Urine NEG (NEG); PH 5.5 (5.0-8.0); Specific Gravity - Urine >= 1.030 (1.005-1.025); Urine Blood TRACE (NEG); Urine Ketones NEG (NEG); Urine Protein 2+ MG/DL (NEG-TRACE)
[2020-10-19 03:19] LABS: Appearance Urine HAZY; Color Urine YELLOW
[2020-10-19 03:26] LABS: Bacteria Urine 1+ /LPF; Squamous Epithelial Cell Urine 1+ /LPF
[2020-10-19 07:27] LABS: MANUAL DIFF FLAG NO
[2020-10-19 07:31] LABS: Basophils Percent Auto 0.3 % (0-2); Eosinophils Percent Auto 0.5 % (0-4); Hematocrit 39.1 % (42-52); Hemoglobin 13.1 g/dl (14.0-18.0); Imm Gran Abs Auto 0.02 X10*3/uL (0.00-0.03); Imm Gran Pct Auto 0.3 % (0.0-0.4); Lymphocytes Absolute Auto 0.9 X10*3/uL (1.2-4.9); Lymphocytes Percent Auto 13.5 % (20-40); Mean Corpuscular HGB Conc 33.5 g/dl (31.0-36.0); Mean Corpuscular Hemoglobin 33.5 pg (27.0-33.0); Monocytes Absolute Auto 1.1 X10*3/uL (0.1-1.2); Monocytes Percent Auto 17.5 % (2-11); Neutrophils Absolute Auto 4.4 X10*3/uL (2.0-8.3); Neutrophils Percent Auto 67.9 % (45-73); Platelet Count 130 X10*3/uL (160-400); Red Blood Count 3.91 X10*6/uL (4.60-5.80); Red Cell Distribution Width 17.8 % (11.0-16.0); White Blood Count 6.5 X10*3/uL (4.8-10.8)
[2020-10-19] MEDS: Piperacillin Sodium/Tazobactam 2.25 GM in 0.9 % Sodium Chloride 50 ML IV ×3 (07:31→18:02)
[2020-10-19 07:40] LABS: Glucose, Whole Blood 111 mg/dL (60-115)
--- NOTE | 2020-10-19 07:58 | PC.NURSE ---
report taken from yashira young pt being admitted as inpt for conservative cholecystitis tx. pt npo at this time, glucose checked this am, offered a few ice chips d/t npo status. resting in stretcher comfortably att, wctm.
[2020-10-19 08:05] LABS: Anion Gap 21 (12-20); Blood Urea Nitrogen 45 mg/dL (9-16); Calcium 9.4 mg/dL (8.4-10.2); Carbon Dioxide 23 mmol/L (22-29); Chloride 101 mmol/L (96-108); Creatinine Clr Calc Pharmacy 20.7; Estimated Glomerular Filt Rate 29; Glucose Random 123 mg/dL (60-115); Magnesium 2.9 mg/dL (1.6-2.6); Potassium 5.6 mmol/L (3.3-5.1); Sodium 139 mmol/L (135-145)
--- NOTE | 2020-10-19 08:23 | PC.NURSE ---
per hospitalist, pt has npo order but may have scheduled po meds.
--- NOTE | 2020-10-19 09:05 | PM.CNGS ---
History of Present Illness Consult details Consult date: 10/19/20 Narrative: Nando Covington is a pleasant 85-year-old male with multiple medical problems presenting with complaints of nausea and vomiting associated with fever, chills, shortness of breath and malaise. He was evaluated by the visiting nurses in found to be dizzy with low blood pressure of 80/50. He was subsequently transported to the emergency department for further evaluation. Patient was noted to be tender in the upper abdomen especially in the right upper quadrant. A CT of the abdomen and pelvis was obtained which revealed a nodular appearing liver with ascites with the gallbladder containing hyperdense bile or sludge. No ductal dilatation is identified. Findings were suggestive of biliary cirrhosis. Ultrasound of the abdomen revealed layering sludge or stones in the gallbladder with wall thickening and pericholecystic fluid suggestive of acute cholecystitis. [place] [facility] [place]09/2020). He has a history of congestive heart failure (with a BNP of 4308), left bundle branch block, multivessel CAD, ejection fraction of 10-15%, noted to have a poor prognosis given his CHF per outpatient cardiology evaluation. Review of Systems Review of Systems: Yes all other systems are reviewed and are negative Cardiovascular: Cardiovascular: Denies chest pain at rest, Reports Epigastric Pain, Denies rapid heart rate, Reports dyspnea and Reports dyspnea on exertion Respiratory: Respiratory: Reports dyspnea and Reports dyspnea on exertion Gastrointestinal: Gastrointestinal: Reports abdominal pain, Reports nausea and Reports vomiting Hematologic/Lymphatic: Hematologic/Lymphatic: Denies lymphadenopathy PMFSH Past Medical History Medical History Atherosclerotic cardiovascular disease COPD (chronic obstructive pulmonary disease) Diabetes mellitus GERD (gastroesophageal reflux disease) History of myocardial infarction Hyperlipidemia Ischemic cardiomyopathy LBBB (left bundle branch block) Non-rheumatic mitral regurgitation Pulmonary hypertension Family History Family History Father No problems noted. Mother No problems noted. Surgical History Surgical History Hx of CABG S/P CABG x 3 Social History Social History Household Members: None Housing: Apartment Alcohol intake: never Smoking Status: Never smoker Tobacco Type: Cigarette Second Hand Smoke Exposure: No Use of substances other than those prescribed or required for medical reasons: No Advance Directives: No Advance Directives Information Provided: Yes service: No Current occupational status: retired Meds Allergies Allergy/AdvReac Type Severity Reaction Status Date / Time No Known Allergies Allergy Unknown NOT Verified 10/03/20 11:18 APPLICABLE Active Medications: Current Medications Generic Name Dose Route Start Last Admin Trade Name Freq PRN Reason Stop Dose Admin Acetaminophen 650 mg 10/18/20 21:33 Acetaminophen 325 Mg Tablet PO Q6H PRN Pain, Mild (Pain Scale 1-3) Albuterol/Ipratropium 3 ml 10/18/20 21:37 Albuterol/Iprat 2.5/0.5mg 3 Ml Ampul.Neb INHALE RQ4H PRN Shortness of Breath/Wheezing Artificial Tears 1 drop 10/18/20 21:37 Artificial Tears 15 Ml Drops EYE-BOTH Q4H PRN Dry Eye(S) Aspirin 81 mg 10/19/20 09:00 Aspirin Enteric Coated 81 Mg Tablet. PO DAILY [facility] Atorvastatin Calcium 80 mg 10/19/20 09:00 Atorvastatin Calcium 80 Mg Tablet PO DAILY [facility] Famotidine 20 mg 10/19/20 09:00 Famotidine 20 Mg Tablet PO BID [facility] Furosemide 40 mg 10/19/20 08:00 Furosemide 40 Mg Tablet PO BID@0800,1700 [facility] Protocol Piperacillin Sod/Tazobactam 50 mls @ 100 mls/hr 10/19/20 00:00 10/19/20 08:06 Sod 2.25 gm/ Sodium Chloride IV Infused Q6H [facility] Infusion Insulin Human Lispro 0 unit 10/19/20 07:30 10/19/20 08:06 Insulin Lispro 100 Unit/Ml 3 Ml Vial SUBCUT Not Given QIDACHS [facility] Protocol Metoprolol Succinate 25 mg 10/19/20 09:00 Metoprolol Succinate Er 25 Mg Tab.Er.24h PO DAILY [facility] Protocol Pharmacy Consult 1 each 10/18/20 14:31 Consult Rx Perform Med Rec MISCELLANE ONCE PRN Consult order Ranolazine 500 mg 10/19/20 09:00 Ranolazine 500 Mg Tab.Er.12h PO BID [facility] Senna 17.2 mg 10/18/20 21:33 Sennosides 8.6 Mg Tablet PO BEDTIME PRN Constipation Sodium Chloride 3 ml 10/19/20 00:00 10/19/20 08:07 0.9 % Sodium Chloride Flush 3 Ml Syringe IVFLUSH Not Given QSHIFT [facility] Vitamin D 50 mcg 10/19/20 09:00 Cholecalciferol (Vitamin D3) 25 Mcg Tablet PO DAILY [facility] Home Medications Medication Instructions Recorded Confirmed Last Taken Type Combivent Respimat 1 puff INHALATION QID 08/06/20 10/18/20 08/06/20 History Stiolto Respimat 2 puff INHALATION DAILY 09/01/20 10/18/20 Unknown History Trulicity 0.75 mg SUBCUT DIOP 09/01/20 10/18/20 Unknown History aspirin 81 mg PO DAILY 09/01/20 10/18/20 Unknown History atorvastatin 80 mg PO DAILY 09/01/20 10/18/20 Unknown History famotidine 20 mg PO BID 09/01/20 10/18/20 Unknown History polyvinyl alcohol [Artificial 1 drp OPHTHALMIC (EYE) Q4H PRN 09/01/20 10/18/20 Unknown History Tears (polyvin alc)] ranolazine 500 mg PO BID 09/01/20 10/18/20 Unknown History cholecalciferol (vitamin D3) 1 cap PO QAM 09/18/20 10/18/20 Unknown History furosemide 40 mg PO BID 10/03/20 10/18/20 Unknown History metoprolol succinate 1 tab PO QAM 10/18/20 10/18/20 Unknown History Physical Exam Vital Signs: Vital Signs: Last Vital Signs Temp 97.4 F 10/19/20 08:04 Pulse 75 10/19/20 08:04 Resp 19 10/19/20 08:04 BP 103/82 10/19/20 08:04 Pulse Ox 92 10/19/20 08:04 Body Mass Index 22.3 Const: General: cooperative, alert, anxious and ill appearing Nutritional Appearance: average body habitus Eyes: Sclerae: sclerae normal EOM: EOMs intact bilaterally Resp: Effort & Inspection: normal respiratory effort, no audible wheezes, no cough, no stridor and not tachypneic GI: Palpation (GI): Soft to palpation, Tenderness to palpation present (GI) in the RUQ; Hodge's sign negative and No hepatosplenomegaly present Percussion: Yes normal to percussion Auscultation: normal bowel sounds Skin: Other: No rash, normal color Extrem: General: Yes full ROM Results Labs Result diagrams: 10/19/20 07:09 10/19/20 07:09 Labs: Abnormal lab results 10/18/20 10/18/20 10/18/20 Range/Units 15:11 15:12 15:12 RBC 4.03 L (4.60-5.80) X10*6/uL Hgb 13.4 L (14.0-18.0) g/dl Hct 39.5 L (42-52) % MCV (80-98) fL MCH 33.3 H (27.0-33.0) pg RDW 17.2 H (11.0-16.0) % Plt Count 143 L (160-400) X10*3/uL Immature Gran % (Auto) 0.5 H (0.0-0.4) % Lymph % (Auto) 14.4 L (20-40) % [place] % (Auto) 14.5 H (2-11) % Lymph # (Auto) 0.9 L (1.2-4.9) X10*3/uL PT 16.8 H (10.8-13.0) SEC INR 1.4 H (0.9-1.1) Potassium (3.3-5.1) mmol/L Anion Gap (12-20) BUN (9-16) mg/dL Creatinine (0.5-1.4) mg/dL Random Glucose (60-115) mg/dL Magnesium (1.6-2.6) mg/dL Total Bilirubin (0.0-1.0) mg/dL Direct Bilirubin (0.0-0.5) mg/dL AST (5-37) U/L ALT (0-40) U/L Alkaline Phosphatase (39-117) U/L Troponin I High Sens 82.8 H (<3.5-35.0) ng/L C-Reactive Protein (< or = 0.50) mg/dL B-Natriuretic Peptide 4308 H (<100) pg/mL Ur Specific [place] (1.005-1.025) Urine Protein (NEG-TRACE) MG/DL 10/18/20 10/19/20 10/19/20 Range/Units 15:12 03:09 07:09 RBC 3.91 L (4.60-5.80) X10*6/uL Hgb 13.1 L (14.0-18.0) g/dl Hct 39.1 L (42-52) % MCV 100.0 H (80-98) fL MCH 33.5 H (27.0-33.0) pg RDW 17.8 H (11.0-16.0) % Plt Count 130 L (160-400) X10*3/uL Immature Gran % (Auto) (0.0-0.4) % Lymph % (Auto) 13.5 L (20-40) % Sutter % (Auto) 17.5 H (2-11) % Lymph # (Auto) 0.9 L (1.2-4.9) X10*3/uL PT (10.8-13.0) SEC INR (0.9-1.1) Potassium (3.3-5.1) mmol/L Anion Gap (12-20) BUN 45 H D (9-16) mg/dL Creatinine 2.12 H (0.5-1.4) mg/dL Random Glucose 165 H (60-115) mg/dL Magnesium 2.7 H (1.6-2.6) mg/dL Total Bilirubin 2.4 H (0.0-1.0) mg/dL Direct Bilirubin 1.0 H (0.0-0.5) mg/dL AST 248 H (5-37) U/L ALT 271 H (0-40) U/L Alkaline Phosphatase 137 H D (39-117) U/L Troponin I High Sens (<3.5-35.0) ng/L C-Reactive Protein 2.84 H (< or = 0.50) mg/dL B-Natriuretic Peptide (<100) pg/mL Ur Specific [place] >= 1.030 H (1.005-1.025) Urine Protein 2+ H (NEG-TRACE) MG/DL 10/19/20 Range/Units 07:09 RBC (4.60-5.80) X10*6/uL Hgb (14.0-18.0) g/dl Hct (42-52) % MCV (80-98) fL MCH (27.0-33.0) pg RDW (11.0-16.0) % Plt Count (160-400) X10*3/uL Immature Gran % (Auto) (0.0-0.4) % Lymph % (Auto) (20-40) % Sutter % (Auto) (2-11) % Lymph # (Auto) (1.2-4.9) X10*3/uL PT (10.8-13.0) SEC INR (0.9-1.1) Potassium 5.6 H (3.3-5.1) mmol/L Anion Gap 21 H (12-20) BUN 45 H (9-16) mg/dL Creatinine 2.21 H (0.5-1.4) mg/dL Random Glucose 123 H (60-115) mg/dL Magnesium 2.9 H (1.6-2.6) mg/dL Total Bilirubin (0.0-1.0) mg/dL Direct Bilirubin (0.0-0.5) mg/dL AST (5-37) U/L ALT (0-40) U/L Alkaline Phosphatase (39-117) U/L Troponin I High Sens (<3.5-35.0) ng/L C-Reactive Protein (< or = 0.50) mg/dL B-Natriuretic Peptide (<100) pg/mL Ur Specific [place] (1.005-1.025) Urine Protein (NEG-TRACE) MG/DL Short CBC 10/18/20 10/19/20 Range/Units 15:12 07:09 WBC 5.9 6.5 (4.8-10.8) X10*3/uL Hgb 13.4 L 13.1 L (14.0-18.0) g/dl Hct 39.5 L 39.1 L (42-52) % Plt Count 143 L 130 L (160-400) X10*3/uL BMP 10/18/20 10/19/20 15:12 07:09 Sodium 137 139 Potassium 4.7 5.6 H Chloride 99 101 Carbon Dioxide 26 23 BUN 45 H D 45 H Creatinine 2.12 H 2.21 H Calcium 9.5 D 9.4 Liver Function 10/18/20 Range/Units 15:12 Total Bilirubin 2.4 H (0.0-1.0) mg/dL Direct Bilirubin 1.0 H (0.0-0.5) mg/dL AST 248 H (5-37) U/L ALT 271 H (0-40) U/L Alkaline Phosphatase 137 H D (39-117) U/L Albumin 4.1 (3.5-5.0) g/dL Urine 10/19/20 Range/Units 03:09 Urine Color YELLOW Urine Appearance HAZY Urine pH 5.5 (5.0-8.0) Ur Specific [place] >= 1.030 H (1.005-1.025) Urine Protein 2+ H (NEG-TRACE) MG/DL Urine Glucose (UA) NEG (NEG) MG/DL All other labs normal. Assessment and Plan (1) Acute cholecystitis: Status: Acute Patient noted to have a thickened gallbladder wall with sludge within the gallbladder and pericholecystic fluid although the CT of the abdomen and pelvis shows a shrunken nodular liver suggestive of cirrhosis. Ascites fluid is identified by CT as well which could explain the pericholecystic fluid and wall thickening. Patient's WBC is normal which speaks against acute cholecystitis. Patient is a very poor risk for surgery and general anesthesia due to his cardiac history (CHF, LBBB, CAD, pulmonary hypertension, mitral regurgitation and very low ejection fraction). If acute cholecystitis is still a consideration a HIDA scan is recommended to evaluate patency of the cystic duct. This is abnormal, the best option would be a interventional radiology placed cholecystostomy tube. (2) Cirrhosis: Status: Acute
[2020-10-19] MEDS: Famotidine 20 MG TABLET PO ×2 (09:18→21:03)
[2020-10-19] MEDS: Atorvastatin Calcium 80 MG TABLET PO (09:18)
[2020-10-19] MEDS: Furosemide 40 MG TABLET PO (09:18)
[2020-10-19] MEDS: Cholecalciferol (Vitamin D3) 25 MCG TABLET 50 MCG PO (09:18)
[2020-10-19] MEDS: Aspirin Enteric Coated 81 MG TABLET.DR PO (09:19)
[2020-10-19] MEDS: Metoprolol Succinate ER 25 MG TAB.ER.24H PO (09:19)
--- NOTE | 2020-10-19 09:32 | PM.CNCAR ---
History of Present Illness History of Present Illness Date of Service: 10/20/20 Requesting physician: Mars Spicer Chief complaint: CHF, hypotension Narrative: 85-year-old gentleman with known ICM EF 10-15% and severe MR s/p [employer]. He has been admitted multiple times with hypertension. He is now presenting with nausea vomiting and low blood pressure. His visiting nurse called us yesterday that he is feeling very dizzy and lightheaded at home and has been throwing up. With these symptoms he was advised to go to the ER. He has been admitted and was noticed to be hypotensive. He has been found to have cholecystitis based on imaging. Discussing with him he has no abdominal pain right now. His vomiting has settled. He has acute kidney injury history of blood workup. [facility] Past Medical History Medical History Atherosclerotic cardiovascular disease COPD (chronic obstructive pulmonary disease) Diabetes mellitus GERD (gastroesophageal reflux disease) History of myocardial infarction Hyperlipidemia Ischemic cardiomyopathy LBBB (left bundle branch block) Non-rheumatic mitral regurgitation Pulmonary hypertension Family History Family History Father No problems noted. Mother No problems noted. Surgical History Surgical History Hx of CABG S/P CABG x 3 Social History Social History Household Members: None Housing: Apartment Alcohol intake: never Smoking Status: Never smoker Tobacco Type: Cigarette Second Hand Smoke Exposure: No service: No Current occupational status: retired [employer] Allergies Allergy/AdvReac Type Severity Reaction Status Date / Time No Known Allergies Allergy Unknown NOT Verified 10/03/20 11:18 APPLICABLE Active Medications: Current Medications Generic Name Dose Route Start Last Admin Trade Name Freq PRN Reason Stop Dose Admin Acetaminophen 650 mg 10/18/20 21:33 Acetaminophen 325 Mg Tablet PO Q6H PRN Pain, Mild (Pain Scale 1-3) Albuterol/Ipratropium 3 ml 10/18/20 21:37 Albuterol/Iprat 2.5/0.5mg 3 Ml Ampul.Neb INHALE RQ4H PRN Shortness of Breath/Wheezing Artificial Tears 1 drop 10/18/20 21:37 Artificial Tears 15 Ml Drops EYE-BOTH Q4H PRN Dry Eye(S) Aspirin 81 mg 10/19/20 09:00 10/19/20 09:19 Aspirin Enteric Coated 81 Mg Tablet.Dr PO 81 mg DAILY WINNIE Administration Atorvastatin Calcium 80 mg 10/19/20 09:00 10/19/20 09:18 Atorvastatin Calcium 80 Mg Tablet PO 80 mg DAILY [facility] Administration Famotidine 20 mg 10/19/20 09:00 10/19/20 09:18 Famotidine 20 Mg Tablet PO 20 mg BID WINNIE Administration Furosemide 40 mg 10/19/20 08:00 10/19/20 09:18 Furosemide 40 Mg Tablet PO 40 mg BID@0800,1700 [facility] Administration Protocol Piperacillin Sod/Tazobactam 50 mls @ 100 mls/hr 10/19/20 00:00 10/19/20 08:06 Sod 2.25 gm/ Sodium Chloride IV Infused Q6H [facility] Infusion Insulin Human Lispro 0 unit 10/19/20 07:30 10/19/20 08:06 Insulin Lispro 100 Unit/Ml 3 Ml Vial SUBCUT Not Given QIDACHS [facility]1983 Protocol Metoprolol Succinate 25 mg 10/19/20 09:00 10/19/20 09:19 Metoprolol Succinate Er 25 Mg Tab.Er.24h PO 25 mg DAILY [facility] Administration Protocol Pharmacy Consult 1 each 10/18/20 14:31 Consult Rx Perform Med Rec MISCELLANE ONCE PRN Consult order Ranolazine 500 mg 10/19/20 09:00 Ranolazine 500 Mg Tab.Er.12h PO BID [facility] Senna 17.2 mg 10/18/20 21:33 Sennosides 8.6 Mg Tablet PO BEDTIME PRN Constipation Sodium Chloride 3 ml 10/19/20 00:00 10/19/20 08:07 0.9 % Sodium Chloride Flush 3 Ml Syringe IVFLUSH Not Given QSHIFT [facility] Vitamin D 50 mcg 10/19/20 09:00 10/19/20 09:18 Cholecalciferol (Vitamin D3) 25 Mcg Tablet PO 50 mcg DAILY [facility] Administration Home Medications Medication Instructions Recorded Confirmed Last Taken Type Combivent Respimat 1 puff INHALATION QID 08/06/20 10/18/20 08/06/20 History Stiolto Respimat 2 puff INHALATION DAILY 09/01/20 10/18/20 Unknown History Trulicity 0.75 mg SUBCUT DIOP 09/01/20 10/18/20 Unknown History aspirin 81 mg PO DAILY 09/01/20 10/18/20 Unknown History atorvastatin 80 mg PO DAILY 09/01/20 10/18/20 Unknown History famotidine 20 mg PO BID 09/01/20 10/18/20 Unknown History polyvinyl alcohol [Artificial 1 drp OPHTHALMIC (EYE) Q4H PRN 09/01/20 10/18/20 Unknown History Tears (polyvin alc)] ranolazine 500 mg PO BID 09/01/20 10/18/20 Unknown History cholecalciferol (vitamin D3) 1 cap PO QAM 09/18/20 10/18/20 Unknown History furosemide 40 mg PO BID 10/03/20 10/18/20 Unknown History metoprolol succinate 1 tab PO QAM 10/18/20 10/18/20 Unknown History Physical Exam Vital Signs: Vital Signs: Last Vital Signs Temp 97.4 F 10/19/20 08:04 Pulse 76 10/19/20 09:19 Resp 19 10/19/20 08:04 BP 113/82 10/19/20 09:19 Pulse Ox 92 10/19/20 08:04 Body Mass Index 22.3 GENERAL APPEARANCE: Frail. HEENT: unremarkable. HEAD: normocephalic, atraumatic. NECK/THYROID: no carotid bruit. JVD, prominent V wave. SKIN: no suspicious lesions, warm and dry. HEART: S1 plus S2, holosystolic murmur at the apex. LUNGS: clear to auscultation bilaterally. Abdomen: No abdominal discomfort. No Hodge sign. EXTREMITIES: no clubbing, cyanosis. Mild edema. PERIPHERAL PULSES: equal. NEUROLOGIC: nonfocal, alert and oriented. PSYCH: mood/affect full range. Results Labs and Meds Result diagrams: 10/20/20 04:06 10/20/20 04:05 Lab results: Laboratory Results - last 24 hr 10/18/20 10/18/20 10/18/20 15:11 15:11 15:12 WBC 5.9 RBC 4.03 L Hgb 13.4 L Hct 39.5 L MCV 98.0 MCH 33.3 H MCHC 33.9 RDW 17.2 H Plt Count 143 L MPV 11.6 Immature Gran % (Auto) 0.5 H Neut % (Auto) 69.6 Lymph % (Auto) 14.4 L Wood % (Auto) 14.5 H Eos % (Auto) 0.5 Baso % (Auto) 0.5 Lymph # (Auto) 0.9 L Wood # (Auto) 0.9 Eos # (Auto) 0.0 Baso # (Auto) 0.0 Abs Immat Gran (auto) 0.03 Absolute Neuts (auto) 4.1 Absolute Nucleated RBC 0.000 Nucleated RBC % (auto) 0.0 PT INR APTT Sodium Potassium Chloride Carbon Dioxide Anion Gap BUN Creatinine Estim Creat Clear Calc Estimated GFR POC Glucose Random Glucose Lactic Acid Calcium Magnesium Total Bilirubin Direct Bilirubin AST ALT Alkaline Phosphatase Troponin I High Sens 82.8 H C-Reactive Protein B-Natriuretic Peptide 4308 H Total Protein Albumin Lipase Urine Color Urine Appearance Urine pH Ur Specific [place] Urine Protein Urine Glucose (UA) Urine Ketones Urine Blood Urine Nitrite Ur Leukocyte Esterase Urine RBC Urine WBC Ur Squamous Epith Cells Urine Bacteria Granular Casts COVID-19 (PETE) Negative COVID-19 Clin Com See Note 10/18/20 10/18/20 10/18/20 15:12 15:12 15:12 WBC RBC Hgb Hct MCV MCH MCHC RDW Plt Count MPV Immature Gran % (Auto) Neut % (Auto) Lymph % (Auto) Wood % (Auto) Eos % (Auto) Baso % (Auto) Lymph # (Auto) Wood # (Auto) Eos # (Auto) Baso # (Auto) Abs Immat Gran (auto) Absolute Neuts (auto) Absolute Nucleated RBC Nucleated RBC % (auto) PT 16.8 H INR 1.4 H APTT 33.9 Sodium 137 Potassium 4.7 Chloride 99 Carbon Dioxide 26 Anion Gap 17 BUN 45 H D Creatinine 2.12 H Estim Creat Clear Calc 21.6 Estimated GFR 30 POC Glucose Random Glucose 165 H Lactic Acid 1.9 Calcium 9.5 D Magnesium 2.7 H Total Bilirubin 2.4 H Direct Bilirubin 1.0 H AST 248 H ALT 271 H Alkaline Phosphatase 137 H D Troponin I High Sens C-Reactive Protein 2.84 H B-Natriuretic Peptide Total Protein 6.7 D Albumin 4.1 Lipase 51 Urine Color Urine Appearance Urine pH Ur Specific [place] Urine Protein Urine Glucose (UA) Urine Ketones Urine Blood Urine Nitrite Ur Leukocyte Esterase Urine RBC Urine WBC Ur Squamous Epith Cells Urine Bacteria Granular Casts COVID-19 (PETE) COVID-19 Clin Com 10/19/20 10/19/20 10/19/20 03:09 07:09 07:09 WBC 6.5 RBC 3.91 L Hgb 13.1 L Hct 39.1 L MCV 100.0 H MCH 33.5 H MCHC 33.5 RDW 17.8 H Plt Count 130 L MPV 12.0 Immature Gran % (Auto) 0.3 Neut % (Auto) 67.9 Lymph % (Auto) 13.5 L Wood % (Auto) 17.5 H Eos % (Auto) 0.5 Baso % (Auto) 0.3 Lymph # (Auto) 0.9 L Wood # (Auto) 1.1 Eos # (Auto) 0.0 Baso # (Auto) 0.0 Abs Immat Gran (auto) 0.02 Absolute Neuts (auto) 4.4 Absolute Nucleated RBC 0.000 Nucleated RBC % (auto) 0.0 PT INR APTT Sodium 139 Potassium 5.6 H Chloride 101 Carbon Dioxide 23 Anion Gap 21 H BUN 45 H Creatinine 2.21 H Estim Creat Clear Calc 20.7 Estimated GFR 29 POC Glucose Random Glucose 123 H Lactic Acid Calcium 9.4 Magnesium 2.9 H Total Bilirubin Direct Bilirubin AST ALT Alkaline Phosphatase Troponin I High Sens C-Reactive Protein B-Natriuretic Peptide Total Protein Albumin Lipase Urine Color YELLOW Urine Appearance HAZY Urine pH 5.5 Ur Specific [place] >= 1.030 H Urine Protein 2+ H Urine Glucose (UA) NEG Urine Ketones NEG Urine Blood TRACE Urine Nitrite NEG Ur Leukocyte Esterase NEG Urine RBC 1-4 Urine WBC 1-4 Ur Squamous Epith Cells 1+ Urine Bacteria 1+ Granular Casts 15-29 COVID-19 (PETE) COVID-19 Clin Com 10/19/20 07:37 WBC RBC Hgb Hct MCV MCH MCHC RDW Plt Count MPV Immature Gran % (Auto) Neut % (Auto) Lymph % (Auto) Wood % (Auto) Eos % (Auto) Baso % (Auto) Lymph # (Auto) Wood # (Auto) Eos # (Auto) Baso # (Auto) Abs Immat Gran (auto) Absolute Neuts (auto) Absolute Nucleated RBC Nucleated RBC % (auto) PT INR APTT Sodium Potassium Chloride Carbon Dioxide Anion Gap BUN Creatinine Estim Creat Clear Calc Estimated GFR POC Glucose 111 Random Glucose Lactic Acid Calcium Magnesium Total Bilirubin Direct Bilirubin AST ALT Alkaline Phosphatase Troponin I High Sens C-Reactive Protein B-Natriuretic Peptide Total Protein Albumin Lipase Urine Color Urine Appearance Urine pH Ur Specific [place] Urine Protein Urine Glucose (UA) Urine Ketones Urine Blood Urine Nitrite Ur Leukocyte Esterase Urine RBC Urine WBC Ur Squamous Epith Cells Urine Bacteria Granular Casts COVID-19 (PETE) COVID-19 Clin Com Imaging Radiologist's impression: Impressions Chest X-Ray 10/18/20 14:33 IMPRESSION: 1. Interval placement of a triple lead AICD. No pneumothorax. 2. Cardiomegaly, unchanged. No acute pulmonary findings. Abdomen/Pelvis CT 10/18/20 14:51 IMPRESSION: No acute CT findings. Small bilateral pleural effusions. Cardiomegaly. The liver is shrunken with a subtly nodular appearance suggesting cirrhosis. There is a small volume of perihepatic and perisplenic ascites. Abdomen Ultrasound 10/18/20 16:12 IMPRESSION: Cholelithiasis with gallbladder wall thickening and pericholecystic free fluid, consistent with an acute cholecystitis. Assessment and Plan (1) CORA (acute kidney injury): Problem details: Mr. Nando Sheets is an 85-year-old gentleman with past medical history of CKD stage IIIa (BL Cr 1.1-1.2mg/dL), recent CORA 09/2020 from hypotension, HTN< DM2, CAD s/p CABG, ischemic CM, LBBB, MR, Pullmonary HTN who presents to ED with N/V for days with reduced PO intake. The patient was found to have CORA on CKD in the setting of cholecystitis. 1. CORA on CKD stage IIIa BL Cr 1.1-1.2mg/dL Recent CORA 2.1mg/dL in 09/2020 from hypotension CKD in the setting of DM2, Isc CM and type 2 CRS. He has a fluctuating / oscillating Cr which tells me his GFR is quite hemodynamic dependent, AKA type 2 CRS. HE does not currently have type 1 CRS however. He is actually hypovolemic with cholecystitis. He has a high specific gravity and granular casts in urine. Plan: - stop PO furosemide - please start 0.9% saline at 100cc/hr for 1-2L total - Urine lytes would be helpful - monitor UOP and renal panel Status: Acute (2) Hypotension: Status: Acute (3) Ischemic cardiomyopathy: Problem details: EF 15-20%, grade 3 diastolic dysfunction Status: Acute 85-year-old gentleman who is presenting for hypertension, nausea and vomiting. He recently underwent cardiac resynchronization therapy for severely reduced ejection fraction and severe mitral regurgitation. He did not have any good revascularization option for his ischemic cardiomyopathy. He said he was nauseous and throwing up and was feeling dizzy and lightheaded. He has been noticed to be hypertensive initially. He was given some fluids. He had acute kidney injury on blood workup. Agree with holding medications for now. He has shown us that he does not tolerate neurohormonal blockade. There is also question about acute cholecystitis. His abdomen is quite benign right now. It is not uncommon to have pericholecystic fluid in patients with right heart failure. Thank you for allowing me to participate in the care of your patient. Please feel free to contact me if you have any questions.
[2020-10-19] MEDS: Ranolazine 500 MG TAB.ER.12H PO ×2 (10:03→21:03)
--- NOTE | 2020-10-19 11:01 | PM.CNNEP ---
History of Present Illness Reason for Consult Consult date: 10/19/20 Reason for consult: Acute Kidney Injury on CKD stage IIIa with Hyperkalemia Chief Complaint Chief complaint: Cholecystitis History of Present Illness Narrative: Mr. Nando Sheets is an 85-year-old gentleman with past medical history of CKD stage IIIa (BL Cr 1.1-1.2mg/dL) secondary to agre related glomerulosclerosis, recent CORA 09/2020 from hypotension, HTN< DM2, CAD s/p CABG, ischemic CM, LBBB, MR, Cmmonary HTN who presents to ED with N/V for days with reduced PO intake. The patient was found to have CORA on CKD in the setting of cholecystitis. The patient tells me that he has reduced PO intake for days along with ongoing nausea with vomiting. He denies dyspnea. He does have a cough however. His CXR did not show pulmonary congestion. His work up has shown acute cholecystitis. His Cr is up to 2.2mg/dL with mild hyperklamia. His U/A is concentrated with high SG. He has granular casts in urinary sediment. Review of Systems Review of Systems Denies dyspnea and LE edema. Yes all other systems are reviewed and are negative PMFSH Past Medical History Medical History Atherosclerotic cardiovascular disease COPD (chronic obstructive pulmonary disease) Diabetes mellitus GERD (gastroesophageal reflux disease) History of myocardial infarction Hyperlipidemia Ischemic cardiomyopathy LBBB (left bundle branch block) Non-rheumatic mitral regurgitation Pulmonary hypertension Family History Family History Father No problems noted. Mother No problems noted. Surgical History Surgical History Hx of CABG S/P CABG x 3 Social History Social History Household Members: None Housing: Apartment Alcohol intake: never Smoking Status: Never smoker Tobacco Type: Cigarette Second Hand Smoke Exposure: No Use of substances other than those prescribed or required for medical reasons: No Advance Directives: No Advance Directives Information Provided: Yes service: No Current occupational status: retired Meds Allergies Allergy/AdvReac Type Severity Reaction Status Date / Time No Known Allergies Allergy Unknown NOT Verified 10/03/20 11:18 APPLICABLE Active Medications: Current Medications Generic Name Dose Route Start Last Admin Trade Name Freq PRN Reason Stop Dose Admin Acetaminophen 650 mg 10/18/20 21:33 Acetaminophen 325 Mg Tablet PO Q6H PRN Pain, Mild (Pain Scale 1-3) Albuterol/Ipratropium 3 ml 10/18/20 21:37 Albuterol/Iprat 2.5/0.5mg 3 Ml Ampul.Neb INHALE RQ4H PRN Shortness of Breath/Wheezing Artificial Tears 1 drop 10/18/20 21:37 Artificial Tears 15 Ml Drops EYE-BOTH Q4H PRN Dry Eye(S) Aspirin 81 mg 10/19/20 09:00 10/19/20 09:19 Aspirin Enteric Coated 81 Mg Tablet.Dr PO 81 mg DAILY WINNIE Administration Atorvastatin Calcium 80 mg 10/19/20 09:00 10/19/20 09:18 Atorvastatin Calcium 80 Mg Tablet PO 80 mg DAILY WINNIE Administration Famotidine 20 mg 10/19/20 09:00 10/19/20 09:18 Famotidine 20 Mg Tablet PO 20 mg BID WINNIE Administration Furosemide 40 mg 10/19/20 08:00 10/19/20 09:18 Furosemide 40 Mg Tablet PO 40 mg BID@0800,1700 [facility] Administration Protocol Piperacillin Sod/Tazobactam 50 mls @ 100 mls/hr 10/19/20 00:00 10/19/20 08:06 Sod 2.25 gm/ Sodium Chloride IV Infused Q6H WINNIE Infusion Insulin Human Lispro 0 unit 10/19/20 07:30 10/19/20 08:06 Insulin Lispro 100 Unit/Ml 3 Ml Vial SUBCUT Not Given QIDACHS [facility] Protocol Metoprolol Succinate 25 mg 10/19/20 09:00 10/19/20 09:19 Metoprolol Succinate Er 25 Mg Tab.Er.24h PO 25 mg DAILY WINNIE Administration Protocol Pharmacy Consult 1 each 10/18/20 14:31 Consult Rx Perform Med Rec MISCELLANE ONCE PRN Consult order Ranolazine 500 mg 10/19/20 09:00 10/19/20 10:03 Ranolazine 500 Mg Tab.Er.12h PO 500 mg BID WINNIE Administration Senna 17.2 mg 10/18/20 21:33 Sennosides 8.6 Mg Tablet PO BEDTIME PRN Constipation Sodium Chloride 3 ml 10/19/20 00:00 10/19/20 08:07 0.9 % Sodium Chloride Flush 3 Ml Syringe IVFLUSH Not Given QSHIFT WINNIE Vitamin D 50 mcg 10/19/20 09:00 10/19/20 09:18 Cholecalciferol (Vitamin D3) 25 Mcg Tablet PO 50 mcg DAILY WINNIE Administration Home Medications Medication Instructions Recorded Confirmed Last Taken Type Combivent Respimat 1 puff INHALATION QID 08/06/20 10/18/20 08/06/20 History Stiolto Respimat 2 puff INHALATION DAILY 09/01/20 10/18/20 Unknown History Trulicity 0.75 mg SUBCUT DIOP 09/01/20 10/18/20 Unknown History aspirin 81 mg PO DAILY 09/01/20 10/18/20 Unknown History atorvastatin 80 mg PO DAILY 09/01/20 10/18/20 Unknown History famotidine 20 mg PO BID 09/01/20 10/18/20 Unknown History polyvinyl alcohol [Artificial 1 drp OPHTHALMIC (EYE) Q4H PRN 09/01/20 10/18/20 Unknown History Tears (polyvin alc)] ranolazine 500 mg PO BID 09/01/20 10/18/20 Unknown History cholecalciferol (vitamin D3) 1 cap PO QAM 09/18/20 10/18/20 Unknown History furosemide 40 mg PO BID 10/03/20 10/18/20 Unknown History metoprolol succinate 1 tab PO QAM 10/18/20 10/18/20 Unknown History Physical Exam Vital Signs: Last Vital Signs Temp 97.4 F 10/19/20 08:04 Pulse 76 10/19/20 09:19 Resp 19 10/19/20 08:04 BP 113/82 10/19/20 09:19 Pulse Ox 92 10/19/20 08:04 Body Mass Index 22.3 Const General: cooperative and no acute distress Resp Other: Wheeze auscultated at bedside. No crackles on exam. Auscultation: clear to auscultation bilaterally Cardio Other: AICD in place Jugular venous distension: no JVD Rate: regular rate Heart sounds: S1 normal heart sound present and S2 normal heart sound present GI Inspection: Yes normal to inspection Palpation (GI): Soft to palpation Extrem Other: Trace pre-tibial edema, chronic Results Lab Results Result Diagrams: 10/19/20 07:09 10/19/20 07:09 Lab results: Chemistry 10/18/20 10/19/20 15:12 07:09 Sodium 137 139 Potassium 4.7 5.6 H Carbon Dioxide 26 23 BUN 45 H D 45 H Creatinine 2.12 H 2.21 H Calcium 9.5 D 9.4 Hematology 10/18/20 10/19/20 15:12 07:09 WBC 5.9 6.5 Hgb 13.4 L 13.1 L Plt Count 143 L 130 L Urinalysis 10/19/20 03:09 Urine Color YELLOW Urine Appearance HAZY Urine pH 5.5 Ur Specific [place] >= 1.030 H Urine Protein 2+ H Urine Glucose (UA) NEG Urine Ketones NEG Urine Blood TRACE Urine Nitrite NEG Ur Leukocyte Esterase NEG Urine RBC 1-4 Urine WBC 1-4 Ur Squamous Epith Cells 1+ Assessment and Plan (1) CORA (acute kidney injury): Problem details: Mr. Nando Sheets is an 85-year-old gentleman with past medical history of CKD stage IIIa (BL Cr 1.1-1.2mg/dL), recent CORA 09/2020 from hypotension, HTN< DM2, CAD s/p CABG, ischemic CM, LBBB, MR, Pullmonary HTN who presents to ED with N/V for days with reduced PO intake. The patient was found to have CORA on CKD in the setting of cholecystitis. 1. CORA on CKD stage IIIa BL Cr 1.1-1.2mg/dL Recent CORA 2.1mg/dL in 09/2020 from hypotension CKD in the setting of DM2, Isc CM and type 2 CRS. He has a fluctuating / oscillating Cr which tells me his GFR is quite hemodynamic dependent, AKA type 2 CRS. HE does not currently have type 1 CRS however. He is actually hypovolemic with cholecystitis. He has a high specific gravity and granular casts in urine. Plan: - stop PO furosemide - please start 0.9% saline at 100cc/hr for 1-2L total - Urine lytes would be helpful - monitor UOP and renal panel Status: Acute (2) Ischemic cardiomyopathy: Problem details: EF 15-20%, grade 3 diastolic dysfunction Status: Acute (3) COPD (chronic obstructive pulmonary disease): Status: Acute (4) Pulmonary hypertension: Status: Acute (5) Chronic HFrEF (heart failure with reduced ejection fraction): Status: Acute (6) Diabetes mellitus: Status: Acute (7) Hyperkalemia: Problem details: The hyperkalemia is secondary to hypovolemia and reduced distal tubule delivery of sodium. Plan: - IVF as above. Status: Acute
[2020-10-19 11:08] LABS: Glucose, Whole Blood 115 mg/dL (60-115)
--- NOTE | 2020-10-19 11:48 | HO.PM.IMPN ---
Subjective Subjective Date of Service: 10/19/20 Interval History: RUQ abd pain, n/v, no sob Cardiovascular Cardiovascular: Reports no additional cardiovascular complaints Respiratory Respiratory: Reports no additional respiratory complaints Physical Exam Vital Signs: Vital Signs: Last Vital Signs Temp 97.4 F 10/19/20 08:04 Pulse 76 10/19/20 09:19 Resp 19 10/19/20 08:04 BP 113/82 10/19/20 09:19 Pulse Ox 92 10/19/20 08:04 Body Mass Index 22.3 General: AO X 3, some discomfort, usually more upbeat Resp: CTA bilateral CVS: S1,S2,RRR, +jvd, but lying flat and no sob GI: soft, non tender, non distended, ruq tender Neuro: motor grossly intact Psych: appropriate affect Objective Data Current Medications Generic Name Dose Route Start Last Admin Trade Name Freq PRN Reason Stop Dose Admin Acetaminophen 650 mg 10/18/20 21:33 Acetaminophen 325 Mg Tablet PO Q6H PRN Pain, Mild (Pain Scale 1-3) Albuterol/Ipratropium 3 ml 10/18/20 21:37 Albuterol/Iprat 2.5/0.5mg 3 Ml Ampul.Neb INHALE RQ4H PRN Shortness of Breath/Wheezing Artificial Tears 1 drop 10/18/20 21:37 Artificial Tears 15 Ml Drops EYE-BOTH Q4H PRN Dry Eye(S) Aspirin 81 mg 10/19/20 09:00 10/19/20 09:19 Aspirin Enteric Coated 81 Mg Tablet. PO 81 mg DAILY WINNIE Administration Atorvastatin Calcium 80 mg 10/19/20 09:00 10/19/20 09:18 Atorvastatin Calcium 80 Mg Tablet PO 80 mg DAILY WINNIE Administration Famotidine 20 mg 10/19/20 09:00 10/19/20 09:18 Famotidine 20 Mg Tablet PO 20 mg BID WINNIE Administration Piperacillin Sod/Tazobactam 50 mls @ 100 mls/hr 10/19/20 00:00 10/19/20 08:06 Sod 2.25 gm/ Sodium Chloride IV Infused Q6H WINNIE Infusion Lactated Ringer's 1,000 mls @ 50 mls/hr 10/19/20 11:45 Lr IVCONT 10/19/20 21:44 .Q20H [facility] Insulin Human Lispro 0 unit 10/19/20 07:30 10/19/20 08:06 Insulin Lispro 100 Unit/Ml 3 Ml Vial SUBCUT Not Given QIDACHS [facility] Protocol Metoprolol Succinate 25 mg 10/19/20 09:00 10/19/20 09:19 Metoprolol Succinate Er 25 Mg Tab.Er.24h PO 25 mg DAILY WINNIE Administration Protocol Pharmacy Consult 1 each 10/18/20 14:31 Consult Rx Perform Med Rec MISCELLANE ONCE PRN Consult order Ranolazine 500 mg 10/19/20 09:00 10/19/20 10:03 Ranolazine 500 Mg Tab.Er.12h PO 500 mg BID WINNIE Administration Senna 17.2 mg 10/18/20 21:33 Sennosides 8.6 Mg Tablet PO BEDTIME PRN Constipation Sodium Chloride 3 ml 10/19/20 00:00 10/19/20 08:07 0.9 % Sodium Chloride Flush 3 Ml Syringe IVFLUSH Not Given QSHIFT [facility] Vitamin D 50 mcg 10/19/20 09:00 10/19/20 09:18 Cholecalciferol (Vitamin D3) 25 Mcg Tablet PO 50 mcg DAILY WINNIE Administration Labs CBC & Chem 7: 10/19/20 07:09 10/19/20 07:09 Assessment and Plan (1) Ischemic cardiomyopathy: Problem details: EF 15-20%, grade 3 diastolic dysfunction Status: Acute Assessment and Plan: 85M presented with abd pain, nausea and vomitting, found to have CORA and acute cholecystitis acute cholecystitis vs fluid/chf zosyn, will get HIDA, if positive plan for cholecystotomy on 10/20/20 clears today, npo after midnight cora on CKD appears hypovolemic hold lasix gentle hydration, monitor chf with reduced EF, ischemic recent AICD continue metoprolol has not tolerated further neurohormonal therapy in past asa, statin, ranexa cirrhosis ?cardiac hepatopathy check serologies DM insulin
[2020-10-19] MEDS: Lactated Ringers 1,000 ML 50 ML IVCONT (12:39)
--- NOTE | 2020-10-19 13:35 | PC.NURSE ---
taken to [facility] via stretcher.
--- NOTE | 2020-10-19 14:36 | MHC.CM.PN ---
CM spoke with dtr/HCP Sena [phone] who reports patient lives alone, amb with a walker and has services with [facility]. Sena is HCP, copy requested, states PCP Dr Rudolph has a copy, CM will follow up after the holiday. Referral to [facility] placed in allscripts. Discussed discharge plan, home with resumption of services from [facility]. Patient will need assistance with transport. IMM addressed with Sena. CM will continue to follow patient for discharge needs.
[2020-10-19] MEDS: 0.9 % Sodium Chloride Flush 3 ML SYRINGE IVFLUSH ×2 (16:27→21:03)
--- NOTE | 2020-10-19 17:16 | PC.NURSE ---
pt from ER, seismic interpreter to bedside. Pt states he is not sure why he is here, states his family brought him in. He denies pain. Pt refusing compression device at this time but states maybe tonight he will accept. HE has no redness to skin, has been changed into gown. Monitor applied. Will continue to observe.
[2020-10-19 19:46] LABS: Glucose, Whole Blood 121 mg/dL (60-115)
[2020-10-20] VITALS (7 sets, daily range): BP systolic 96–116; BP diastolic 51–59; PULSE 65–75; RESP 16–20; TEMP 35.9–36.6; O2SAT 92–96
[2020-10-20] MEDS: Piperacillin Sodium/Tazobactam 2.25 GM in 0.9 % Sodium Chloride 50 ML IV ×3 (00:09→11:01)
[2020-10-20 04:34] LABS: MANUAL DIFF FLAG NO
[2020-10-20 04:45] LABS: Basophils Percent Auto 0.5 % (0-2); Eosinophils Absolute Auto 0.1 X10*3/uL (0.0-0.4); Eosinophils Percent Auto 0.9 % (0-4); Hematocrit 36.4 % (42-52); Hemoglobin 12.2 g/dl (14.0-18.0); Imm Gran Abs Auto 0.02 X10*3/uL (0.00-0.03); Imm Gran Pct Auto 0.4 % (0.0-0.4); Lymphocytes Absolute Auto 0.9 X10*3/uL (1.2-4.9); Lymphocytes Percent Auto 15.6 % (20-40); Mean Corpuscular HGB Conc 33.5 g/dl (31.0-36.0); Mean Corpuscular Hemoglobin 33.1 pg (27.0-33.0); Mean Corpuscular Volume 98.6 fL (80-98); Mean Platelet Volume 11.9 fL (9.4-12.4); Monocytes Percent Auto 17.2 % (2-11); Neutrophils Absolute Auto 3.6 X10*3/uL (2.0-8.3); Neutrophils Percent Auto 65.4 % (45-73); Platelet Count 126 X10*3/uL (160-400); Red Blood Count 3.69 X10*6/uL (4.60-5.80); Red Cell Distribution Width 17.7 % (11.0-16.0); White Blood Count 5.5 X10*3/uL (4.8-10.8)
[2020-10-20 04:58] LABS: INTERNATIONAL NORM RATIO 1.5 (0.9-1.1); Prothrombin Time 17.4 SEC (10.8-13.0)
[2020-10-20 05:01] LABS: Partial Thromboplastin Time 32.2 SEC (24.1-38.0)
[2020-10-20 05:12] LABS: Alanine Aminotransferase 427 U/L (0-40); Albumin Level 3.2 g/dL (3.5-5.0); Alkaline Phosphatase 101 U/L (39-117); Anion Gap 21 (12-20); Aspartate Amino Transferase 375 U/L (5-37); Bilirubin Direct 1.1 mg/dL (0.0-0.5); Bilirubin Total 2.1 mg/dL (0.0-1.0); Blood Urea Nitrogen 42 mg/dL (9-16); Calcium 8.5 mg/dL (8.4-10.2); Carbon Dioxide 21 mmol/L (22-29); Chloride 100 mmol/L (96-108); Creatinine Clr Calc Pharmacy 21.6; Estimated Glomerular Filt Rate 30; Glucose Fasting 135 mg/dL (60-99); Potassium 4.4 mmol/L (3.3-5.1); Sodium 138 mmol/L (135-145); Total Protein 5.3 g/dL (6.5-8.0)
[2020-10-20 05:29] LABS: HBS Num1 0.67 mIU/mL (0-7.99); HBsAGNum1 0.26 S/CO (0.00-0.99); Hepatitis B Surface Antigen Negative (Negative); ~Hepatitis B Surface Antibody NONREACTIVE (Nonreactive); ~Hepatitis C Antibody Nonreactive (Nonreactive)
[2020-10-20 05:37] LABS: HBc Num1 0.18 S/CO (0.00-0.79); Hepatitis B Core Antibody Nonreactive (Nonreactive)
[2020-10-20 07:18] LABS: Glucose, Whole Blood 119 mg/dL (60-115)
[2020-10-20] MEDS: 0.9 % Sodium Chloride 1,000 ML 50 ML IVCONT (10:58)
[2020-10-20 11:08] LABS: Glucose, Whole Blood 110 mg/dL (60-115)
--- NOTE | 2020-10-20 11:40 | P.PNIM_ITS ---
Subjective Subjective Date of Service: 10/20/20 Interval History: abdominal pain improved today Cardiovascular Cardiovascular: Reports no additional cardiovascular complaints Gastrointestinal Gastrointestinal: Reports no additional gastrointestinal complaints Physical Exam Vital Signs: Vital Signs: Last Vital Signs Temp 97.4 F 10/20/20 11:34 Pulse 67 10/20/20 11:34 Resp 16 10/20/20 11:34 BP 116/55 L 10/20/20 11:34 Pulse Ox 96 10/20/20 11:34 Body Mass Index 22.3 General: AO X 3, no acute distress, frail Resp: CTA bilateral CVS: S1,S2,RRR, +jvd GI: soft, non tender, non distended Neuro: motor grossly intact Psych: appropriate affect Objective Data Current Medications Generic Name Dose Route Start Last Admin Trade Name Freq PRN Reason Stop Dose Admin Acetaminophen 650 mg 10/18/20 21:33 Acetaminophen 325 Mg Tablet PO Q6H PRN Pain, Mild (Pain Scale 1-3) Albuterol/Ipratropium 3 ml 10/18/20 21:37 Albuterol/Iprat 2.5/0.5mg 3 Ml Ampul.Neb INHALE RQ4H PRN Shortness of Breath/Wheezing Artificial Tears 1 drop 10/18/20 21:37 Artificial Tears 15 Ml Drops EYE-BOTH Q4H PRN Dry Eye(S) Aspirin 81 mg 10/19/20 09:00 10/20/20 08:07 Aspirin Enteric Coated 81 Mg Tablet.Dr PO Not Given DAILY WINNIE Atorvastatin Calcium 80 mg 10/19/20 09:00 10/20/20 08:08 Atorvastatin Calcium 80 Mg Tablet PO Not Given DAILY WINNIE Famotidine 20 mg 10/19/20 09:00 10/20/20 08:08 Famotidine 20 Mg Tablet PO Not Given BID WINNIE Sodium Chloride 1,000 mls @ 50 mls/hr 10/20/20 10:30 10/20/20 10:58 Ns IVCONT 10/20/20 20:29 50 mls/hr .Q20H WINNIE Administration Insulin Human Lispro 0 unit 10/19/20 07:30 10/20/20 10:57 Insulin Lispro 100 Unit/Ml 3 Ml Vial SUBCUT Not Given QIDACHS [facility] Protocol Pharmacy Consult 1 each 10/18/20 14:31 Consult Rx Perform Med Rec MISCELLANE ONCE PRN Consult order Ranolazine 500 mg 10/19/20 09:00 10/20/20 08:08 Ranolazine 500 Mg Tab.Er.12h PO Not Given BID WINNIE Senna 17.2 mg 10/18/20 21:33 Sennosides 8.6 Mg Tablet PO BEDTIME PRN Constipation Sodium Chloride 3 ml 10/19/20 00:00 10/20/20 08:32 0.9 % Sodium Chloride Flush 3 Ml Syringe IVFLUSH Not Given QSHIFT WINNIE Vitamin D 50 mcg 10/19/20 09:00 10/20/20 08:08 Cholecalciferol (Vitamin D3) 25 Mcg Tablet PO Not Given DAILY WINNIE Labs CBC & Chem 7: 10/20/20 04:06 10/20/20 04:05 Microbiology Microbiology Results: Microbiology 10/18/20 15:16 Blood - Venous Blood Culture - Preliminary No growth after 24 hours. 10/18/20 15:11 Blood - Venous Blood Culture - Preliminary No growth after 24 hours. Assessment and Plan (1) Ischemic cardiomyopathy: Problem details: EF 15-20%, grade 3 diastolic dysfunction Status: Acute Assessment and Plan: 85M presented with abd pain, nausea and vomitting, found to have CORA and acute cholecystitis acute cholecystitis on CT no ruq tenderness, hida negative, doubt acute cholecystitis cultures negatice, will dc antibiotics advance diet cora on CKD appears hypovolemic hold lasix, metoprolol continue gentle hydration, monitor closely inpatient as patient at risk for fluid overload chf with reduced EF, ischemic recent AICD hold metoprolol has not tolerated further neurohormonal therapy in past continue asa, statin, ranexa cirrhosis ?cardiac hepatopathy negative serologies, follow up abd doppler DM insulin
--- NOTE | 2020-10-20 11:49 | PM.PNCARD ---
Subjective Subjective Date of Service: 10/20/20 Interval history: Feeling better. He is waiting her ultrasound of his abdomen. Creatinine is still elevated. Review of Systems Review of Systems No abdominal pain. No shortness of breath. Yes all other systems are reviewed and are negative Physical Exam Vital Signs: Last Vital Signs Temp 97.4 F 10/20/20 11:34 Pulse 67 10/20/20 11:34 Resp 16 10/20/20 11:34 BP 116/55 L 10/20/20 11:34 Pulse Ox 96 10/20/20 11:34 Body Mass Index 22.3 GENERAL APPEARANCE: Frail. HEENT: unremarkable. HEAD: normocephalic, atraumatic. NECK/THYROID: no carotid bruit. JVD, prominent V wave. SKIN: no suspicious lesions, warm and dry. HEART: S1 plus S2, holosystolic murmur at the apex. LUNGS: clear to auscultation bilaterally. Abdomen: No abdominal discomfort. No Hodge sign. EXTREMITIES: no clubbing, cyanosis. Mild edema. PERIPHERAL PULSES: equal. NEUROLOGIC: nonfocal, alert and oriented. PSYCH: mood/affect full range. Results Labs and Meds Result diagrams: 10/20/20 04:06 10/20/20 04:05 Lab results: Laboratory Results - last 24 hr 10/19/20 10/20/20 10/20/20 19:42 04:05 04:05 WBC RBC Hgb Hct MCV MCH MCHC RDW Plt Count MPV Immature Gran % (Auto) Neut % (Auto) Lymph % (Auto) [place] % (Auto) Eos % (Auto) Baso % (Auto) Lymph # (Auto) [place] # (Auto) Eos # (Auto) Baso # (Auto) Abs Immat Gran (auto) Absolute Neuts (auto) Absolute Nucleated RBC Nucleated RBC % (auto) PT INR APTT Sodium 138 Potassium 4.4 D Chloride 100 Carbon Dioxide 21 L Anion Gap 21 H BUN 42 H Creatinine 2.12 H Estim Creat Clear Calc 21.6 Estimated GFR 30 POC Glucose 121 H Fasting Glucose 135 H Calcium 8.5 D Total Bilirubin 2.1 H Direct Bilirubin 1.1 H AST 375 H ALT 427 H Alkaline Phosphatase 101 D Total Protein 5.3 L D Albumin 3.2 L D Hep Bs Antigen Negative Hep Bs Antibody NONREACTIVE Hep B Core Total Ab Nonreactive Hepatitis C Ab (EIA) Nonreactive 10/20/20 10/20/20 10/20/20 04:06 04:06 06:58 WBC 5.5 RBC 3.69 L Hgb 12.2 L Hct 36.4 L MCV 98.6 H MCH 33.1 H MCHC 33.5 RDW 17.7 H Plt Count 126 L MPV 11.9 Immature Gran % (Auto) 0.4 Neut % (Auto) 65.4 Lymph % (Auto) 15.6 L [place] % (Auto) 17.2 H Eos % (Auto) 0.9 Baso % (Auto) 0.5 Lymph # (Auto) 0.9 L [place] # (Auto) 1.0 Eos # (Auto) 0.1 Baso # (Auto) 0.0 Abs Immat Gran (auto) 0.02 Absolute Neuts (auto) 3.6 Absolute Nucleated RBC 0.000 Nucleated RBC % (auto) 0.0 PT 17.4 H INR 1.5 H APTT 32.2 Sodium Potassium Chloride Carbon Dioxide Anion Gap BUN Creatinine Estim Creat Clear Calc Estimated GFR POC Glucose 119 H Fasting Glucose Calcium Total Bilirubin Direct Bilirubin AST ALT Alkaline Phosphatase Total Protein Albumin Hep Bs Antigen Hep Bs Antibody Hep B Core Total Ab Hepatitis C Ab (EIA) 10/20/20 10:54 WBC RBC Hgb Hct MCV MCH MCHC RDW Plt Count MPV Immature Gran % (Auto) Neut % (Auto) Lymph % (Auto) [place] % (Auto) Eos % (Auto) Baso % (Auto) Lymph # (Auto) [place] # (Auto) Eos # (Auto) Baso # (Auto) Abs Immat Gran (auto) Absolute Neuts (auto) Absolute Nucleated RBC Nucleated RBC % (auto) PT INR APTT Sodium Potassium Chloride Carbon Dioxide Anion Gap BUN Creatinine Estim Creat Clear Calc Estimated GFR POC Glucose 110 Fasting Glucose Calcium Total Bilirubin Direct Bilirubin AST ALT Alkaline Phosphatase Total Protein Albumin Hep Bs Antigen Hep Bs Antibody Hep B Core Total Ab Hepatitis C Ab (EIA) Imaging Radiologist's impression: Impressions Hepatobiliary Scan Nuclear Medicine 10/19/20 15:10 IMPRESSION: * Patent cystic duct excludes acute calculus cholecystitis. * Delayed biliary to small bowel transit time of 90 minutes. If the patient has not received narcotics prior to the examination, this could reflect biliary dyskinesia and/or sphincter of Oddi spasm. Progress Note: A&P Assessment and plan (1) Chronic HFrEF (heart failure with reduced ejection fraction): Status: Acute (2) Hypotension: Status: Acute (3) CORA (acute kidney injury): Status: Acute Assessment and Plan: Pleasant 85 year gentleman who had cardiomyopathy and severe mitral valve regurgitation for which she underwent cardiac resynchronization therapy. He presented for nausea vomiting and hypertension. He had kidney injury and abnormal liver enzymes. I think his BP medications should be held. Agree with hydrating gently to see if his creatinine improved. He has elevated JVD and prominent V-waves on JVD examination which is likely due to tricuspid valve regurgitation. This makes volume status assessment quite challenging. I think trying low-volume fluid resuscitation slowly is appropriate right now. He has no symptoms right now. Thank you for allowing me to participate in the care of your patient. Please feel free to contact me if you have any questions. Fall Risk Details Current Medications: Current Medications Generic Name Dose Route Start Last Admin Trade Name Freq PRN Reason Stop Dose Admin Acetaminophen 650 mg 10/18/20 21:33 Acetaminophen 325 Mg Tablet PO Q6H PRN Pain, Mild (Pain Scale 1-3) Albuterol/Ipratropium 3 ml 10/18/20 21:37 Albuterol/Iprat 2.5/0.5mg 3 Ml Ampul.Neb INHALE RQ4H PRN Shortness of Breath/Wheezing Artificial Tears 1 drop 10/18/20 21:37 Artificial Tears 15 Ml Drops EYE-BOTH Q4H PRN Dry Eye(S) Aspirin 81 mg 10/19/20 09:00 10/20/20 08:07 Aspirin Enteric Coated 81 Mg Tablet. PO Not Given DAILY [facility] Atorvastatin Calcium 80 mg 10/19/20 09:00 10/20/20 08:08 Atorvastatin Calcium 80 Mg Tablet PO Not Given DAILY WINNIE Famotidine 20 mg 10/19/20 09:00 10/20/20 08:08 Famotidine 20 Mg Tablet PO Not Given BID WINNIE Sodium Chloride 1,000 mls @ 50 mls/hr 10/20/20 10:30 10/20/20 10:58 Ns IVCONT 10/20/20 20:29 50 mls/hr .Q20H WINNIE Administration Insulin Human Lispro 0 unit 10/19/20 07:30 10/20/20 10:57 Insulin Lispro 100 Unit/Ml 3 Ml Vial SUBCUT Not Given QIDACHS [facility] Protocol Pharmacy Consult 1 each 10/18/20 14:31 Consult Rx Perform Med Rec MISCELLANE ONCE PRN Consult order Ranolazine 500 mg 10/19/20 09:00 10/20/20 08:08 Ranolazine 500 Mg Tab.Er.12h PO Not Given BID [facility] Senna 17.2 mg 10/18/20 21:33 Sennosides 8.6 Mg Tablet PO BEDTIME PRN Constipation Sodium Chloride 3 ml 10/19/20 00:00 10/20/20 08:32 0.9 % Sodium Chloride Flush 3 Ml Syringe IVFLUSH Not Given QSHIFT [facility] Vitamin D 50 mcg 10/19/20 09:00 10/20/20 08:08 Cholecalciferol (Vitamin D3) 25 Mcg Tablet PO Not Given DAILY [facility] Time Spent With Patient Time: Total time spent is greater than 50% in coordination of care (as documented) at patient's floor/unit and/or counseling patient: Time with patient: 15 - 24 minutes
[2020-10-20] MEDS: 0.9 % Sodium Chloride Flush 3 ML SYRINGE IVFLUSH (15:33)
[2020-10-20 16:17] LABS: Glucose, Whole Blood 169 mg/dL (60-115)
[2020-10-20] MEDS: Insulin Lispro 100 UNIT/ML 3 ML VIAL SUBCUT ×2 (17:07→20:53)
[2020-10-20 20:04] LABS: Glucose, Whole Blood 169 mg/dL (60-115)
[2020-10-20] MEDS: Ranolazine 500 MG TAB.ER.12H PO (20:52)
[2020-10-20] MEDS: Famotidine 20 MG TABLET PO (20:53)
--- NOTE | 2020-10-20 21:35 | PM.PNNEP ---
Subjective Subjective Date of Service: 10/20/20 Interval history: aPt feels good No CP No SOB Physical Exam Vital Signs: Vital Signs: Last Vital Signs Temp 97.4 F 10/20/20 19:08 Pulse 73 10/20/20 19:08 Resp 18 10/20/20 19:08 BP 100/51 L 10/20/20 19:08 Pulse Ox 92 10/20/20 19:08 Body Mass Index 22.3 Const: General: cooperative and no acute distress Resp: Other: Wheeze auscultated at bedside. No crackles on exam. Auscultation: clear to auscultation bilaterally Cardio: Other: AICD in place Jugular venous distension: no JVD Rate: regular rate Heart sounds: S1 normal heart sound present and S2 normal heart sound present GI: Inspection: Yes normal to inspection Palpation (GI): Soft to palpation Extrem: Other: Trace pre-tibial edema, chronic Objective Data Labs CBC & Chem 7: 10/20/20 04:06 10/20/20 04:05 Labs: Laboratory Results - last 24 hr 10/20/20 10/20/20 10/20/20 04:05 04:05 04:06 WBC 5.5 RBC 3.69 L Hgb 12.2 L Hct 36.4 L MCV 98.6 H MCH 33.1 H MCHC 33.5 RDW 17.7 H Plt Count 126 L MPV 11.9 Immature Gran % (Auto) 0.4 Neut % (Auto) 65.4 Lymph % (Auto) 15.6 L [place] % (Auto) 17.2 H Eos % (Auto) 0.9 Baso % (Auto) 0.5 Lymph # (Auto) 0.9 L [place] # (Auto) 1.0 Eos # (Auto) 0.1 Baso # (Auto) 0.0 Abs Immat Gran (auto) 0.02 Absolute Neuts (auto) 3.6 Absolute Nucleated RBC 0.000 Nucleated RBC % (auto) 0.0 PT INR APTT Sodium 138 Potassium 4.4 D Chloride 100 Carbon Dioxide 21 L Anion Gap 21 H BUN 42 H Creatinine 2.12 H Estim Creat Clear Calc 21.6 Estimated GFR 30 POC Glucose Fasting Glucose 135 H Calcium 8.5 D Total Bilirubin 2.1 H Direct Bilirubin 1.1 H AST 375 H ALT 427 H Alkaline Phosphatase 101 D Total Protein 5.3 L D Albumin 3.2 L D Hep Bs Antigen Negative Hep Bs Antibody NONREACTIVE Hep B Core Total Ab Nonreactive Hepatitis C Ab (EIA) Nonreactive 10/20/20 10/20/20 10/20/20 04:06 06:58 10:54 WBC RBC Hgb Hct MCV MCH MCHC RDW Plt Count MPV Immature Gran % (Auto) Neut % (Auto) Lymph % (Auto) [place] % (Auto) Eos % (Auto) Baso % (Auto) Lymph # (Auto) [place] # (Auto) Eos # (Auto) Baso # (Auto) Abs Immat Gran (auto) Absolute Neuts (auto) Absolute Nucleated RBC Nucleated RBC % (auto) PT 17.4 H INR 1.5 H APTT 32.2 Sodium Potassium Chloride Carbon Dioxide Anion Gap BUN Creatinine Estim Creat Clear Calc Estimated GFR POC Glucose 119 H 110 Fasting Glucose Calcium Total Bilirubin Direct Bilirubin AST ALT Alkaline Phosphatase Total Protein Albumin Hep Bs Antigen Hep Bs Antibody Hep B Core Total Ab Hepatitis C Ab (EIA) 10/20/20 10/20/20 16:08 19:55 WBC RBC Hgb Hct MCV MCH MCHC RDW Plt Count MPV Immature Gran % (Auto) Neut % (Auto) Lymph % (Auto) [place] % (Auto) Eos % (Auto) Baso % (Auto) Lymph # (Auto) [place] # (Auto) Eos # (Auto) Baso # (Auto) Abs Immat Gran (auto) Absolute Neuts (auto) Absolute Nucleated RBC Nucleated RBC % (auto) PT INR APTT Sodium Potassium Chloride Carbon Dioxide Anion Gap BUN Creatinine Estim Creat Clear Calc Estimated GFR POC Glucose 169 H 169 H Fasting Glucose Calcium Total Bilirubin Direct Bilirubin AST ALT Alkaline Phosphatase Total Protein Albumin Hep Bs Antigen Hep Bs Antibody Hep B Core Total Ab Hepatitis C Ab (EIA) Microbiology Microbiology Results: Microbiology 10/18/20 15:16 Blood - Venous Blood Culture - Preliminary No growth after 48 hours. 10/18/20 15:11 Blood - Venous Blood Culture - Preliminary No growth after 48 hours. Assessment & Plan Assessment and plan (1) Chronic HFrEF (heart failure with reduced ejection fraction): Status: Acute (2) Hypotension: Status: Acute (3) CORA (acute kidney injury): Status: Acute Assessment and Plan: -Pleasant 85 year gentleman with CORA - Prerrenal -He presented for nausea vomiting and hypertension. -Cardiomyopathy and severe mitral valve regurgitation -Abnormal liver enzymes. Agree with hydrating gently Avoid nephrotoxins F/u renal func D/w Medical team Time Spent With Patient Time: Total time spent is greater than 50% in coordination of care (as documented) at patient's floor/unit and/or counseling patient:
[2020-10-21] MEDS: 0.9 % Sodium Chloride Flush 3 ML SYRINGE IVFLUSH ×3 (00:32→20:33)
[2020-10-21 03:43] VITALS: BP 97/59; PULSE 74; RESP 20; TEMP 36.7; O2SAT 98
--- NOTE | 2020-10-21 05:39 | PC.NURSE ---
patient was noted to have a 6 beat of vtach- pt asymptomatic upon assessment- provider alerted
[2020-10-21 06:56] LABS: Eosinophils Absolute Auto 0.1 X10*3/uL (0.0-0.4); Eosinophils Percent Auto 2.3 % (0-4); Mean Corpuscular Volume 99.7 fL (80-98)
[2020-10-21 06:58] LABS: Basophils Percent Auto 0.6 % (0-2); Hematocrit 37.4 % (42-52); Hemoglobin 12.3 g/dl (14.0-18.0); Imm Gran Abs Auto 0.03 X10*3/uL (0.00-0.03); Imm Gran Pct Auto 0.5 % (0.0-0.4); Lymphocytes Absolute Auto 0.9 X10*3/uL (1.2-4.9); Lymphocytes Percent Auto 14.3 % (20-40); Mean Corpuscular HGB Conc 32.9 g/dl (31.0-36.0); Mean Corpuscular Hemoglobin 32.8 pg (27.0-33.0); Monocytes Absolute Auto 1.1 X10*3/uL (0.1-1.2); Monocytes Percent Auto 18.2 % (2-11); Neutrophils Percent Auto 64.1 % (45-73); Platelet Count 120 X10*3/uL (160-400); Red Blood Count 3.75 X10*6/uL (4.60-5.80); Red Cell Distribution Width 18.1 % (11.0-16.0); White Blood Count 6.2 X10*3/uL (4.8-10.8)
[2020-10-21 06:59] LABS: INTERNATIONAL NORM RATIO 1.3 (0.9-1.1); Prothrombin Time 15.5 SEC (10.8-13.0)
[2020-10-21 07:16] LABS: Alanine Aminotransferase 426 U/L (0-40); Albumin Level 3.3 g/dL (3.5-5.0); Alkaline Phosphatase 107 U/L (39-117); Anion Gap 15 (12-20); Aspartate Amino Transferase 314 U/L (5-37); Bilirubin Direct 0.8 mg/dL (0.0-0.5); Bilirubin Total 1.9 mg/dL (0.0-1.0); Blood Urea Nitrogen 39 mg/dL (9-16); Calcium 8.9 mg/dL (8.4-10.2); Carbon Dioxide 26 mmol/L (22-29); Chloride 102 mmol/L (96-108); Creatinine Clr Calc Pharmacy 21.7; Estimated Glomerular Filt Rate 30; Glucose Fasting 99 mg/dL (60-99); Potassium 4.5 mmol/L (3.3-5.1); Sodium 138 mmol/L (135-145); Total Protein 5.5 g/dL (6.5-8.0)
[2020-10-21 07:34] LABS: Glucose, Whole Blood 116 mg/dL (60-115)
[2020-10-21 07:47] VITALS: BP 106/66; PULSE 76; RESP 20; TEMP 36.7; O2SAT 95
[2020-10-21] MEDS: Aspirin Enteric Coated 81 MG TABLET.DR PO (08:45)
[2020-10-21] MEDS: Famotidine 20 MG TABLET PO ×2 (08:46→20:29)
[2020-10-21] MEDS: Atorvastatin Calcium 80 MG TABLET PO (08:46)
[2020-10-21] MEDS: Ranolazine 500 MG TAB.ER.12H PO ×2 (08:46→20:29)
[2020-10-21] MEDS: Cholecalciferol (Vitamin D3) 25 MCG TABLET 50 MCG PO (08:46)
--- NOTE | 2020-10-21 08:51 | PM.PNCARD ---
Subjective Subjective Date of Service: 10/21/20 Principal diagnosis: Chronic HFrEF, hypotension, abnormal LFT, CORA Interval history: Cardiology follow up for the above. Seen at 0845. Today he is observed up in bed eating breakfast. He denies respiratory difficulty or chest discomfort. Soreness present at ICD site. Abdomen tender with palpation. He admits to having nausea. No vomiting this am. BUENO without gross weakness. Review of Systems Review of Systems as above Yes all other systems are reviewed and are negative Physical Exam Vital Signs: Last Vital Signs Temp 98.0 F 10/21/20 07:47 Pulse 76 10/21/20 07:47 Resp 20 10/21/20 07:47 BP 106/66 10/21/20 07:47 Pulse Ox 95 10/21/20 07:47 Body Mass Index 22.3 Const Other: pleasant, appropriate, speaks some Faroese General: cooperative, no acute distress, alert and awake Orientation/consciousness: patient oriented x3 HENMT Other: Jaundice skin color Resp Other: Rales noted in each lower lobe Effort & Inspection: normal respiratory effort, able to speak in complete sentences and not labored Auscultation: clear to auscultation bilaterally Cardio Jugular venous distension: JVD (V waves from TR) Palpation: normal PMI Rate: regular rate Rhythm: regular rhythm Heart sounds: S2 normal heart sound present and Murmur heart sound present (loudest over mitral region) systolic Peripheral pulses: Peripheral pulses 2+ throughout GI Other: Tender upper quadrants to palpation Inspection: Yes normal to inspection Neuro General: patient oriented x3 Extrem General: Yes normal to inspection and No edema Results Labs and Meds Result diagrams: 10/21/20 06:01 10/21/20 06:01 Lab results: Laboratory Results - last 24 hr 10/20/20 10/20/20 10/20/20 10:54 16:08 19:55 WBC RBC Hgb Hct MCV MCH MCHC RDW Plt Count MPV Immature Gran % (Auto) Neut % (Auto) Lymph % (Auto) [place] % (Auto) Eos % (Auto) Baso % (Auto) Lymph # (Auto) [place] # (Auto) Eos # (Auto) Baso # (Auto) Abs Immat Gran (auto) Absolute Neuts (auto) Absolute Nucleated RBC Nucleated RBC % (auto) PT INR Sodium Potassium Chloride Carbon Dioxide Anion Gap BUN Creatinine Estim Creat Clear Calc Estimated GFR POC Glucose 110 169 H 169 H Fasting Glucose Calcium Total Bilirubin Direct Bilirubin AST ALT Alkaline Phosphatase Total Protein Albumin 10/21/20 10/21/20 10/21/20 06:01 06:01 06:01 WBC 6.2 RBC 3.75 L Hgb 12.3 L Hct 37.4 L MCV 99.7 H MCH 32.8 MCHC 32.9 RDW 18.1 H Plt Count 120 L MPV 12.0 Immature Gran % (Auto) 0.5 H Neut % (Auto) 64.1 Lymph % (Auto) 14.3 L [place] % (Auto) 18.2 H Eos % (Auto) 2.3 Baso % (Auto) 0.6 Lymph # (Auto) 0.9 L [place] # (Auto) 1.1 Eos # (Auto) 0.1 Baso # (Auto) 0.0 Abs Immat Gran (auto) 0.03 Absolute Neuts (auto) 4.0 Absolute Nucleated RBC 0.000 Nucleated RBC % (auto) 0.0 PT 15.5 H INR 1.3 H Sodium 138 Potassium 4.5 Chloride 102 Carbon Dioxide 26 Anion Gap 15 BUN 39 H Creatinine 2.11 H Estim Creat Clear Calc 21.7 Estimated GFR 30 POC Glucose Fasting Glucose 99 Calcium 8.9 Total Bilirubin 1.9 H Direct Bilirubin 0.8 H AST 314 H ALT 426 H Alkaline Phosphatase 107 Total Protein 5.5 L Albumin 3.3 L 10/21/20 07:09 WBC RBC Hgb Hct MCV MCH MCHC RDW Plt Count MPV Immature Gran % (Auto) Neut % (Auto) Lymph % (Auto) [place] % (Auto) Eos % (Auto) Baso % (Auto) Lymph # (Auto) [place] # (Auto) Eos # (Auto) Baso # (Auto) Abs Immat Gran (auto) Absolute Neuts (auto) Absolute Nucleated RBC Nucleated RBC % (auto) PT INR Sodium Potassium Chloride Carbon Dioxide Anion Gap BUN Creatinine Estim Creat Clear Calc Estimated GFR POC Glucose 116 H Fasting Glucose Calcium Total Bilirubin Direct Bilirubin AST ALT Alkaline Phosphatase Total Protein Albumin Imaging Radiologist's impression: Impressions Doppler Study Ultrasound 10/20/20 12:10 IMPRESSION: 1. Hepatic veins patent with flow towards the heart. 2. Portal veins patent with flow towards the liver. Splenic vein patent. 3. Hepatic artery patent, antegrade flow. 4. Trace ascites subphrenic region. Progress Note: A&P Assessment and plan (1) Chronic HFrEF (heart failure with reduced ejection fraction): Status: Acute Assessment and Plan: Admit with Nausea, vomit, abdomenal pains. Found to have CORA. His diuretics have been on hold and he did recieve IV Fluids. Fluid balance + 2200. On exam he has V waves which make assessment for fluid overload challenging. CXR from 10/18 shows clear lungs and his BNP is chronically elevated. On exam today he does have rales in each lower lobe. Sat 95% on RA. Creatinine initially improved some with fluid however has been staying at 2.12/ 2.11 for the last 2 days. He does have a known hx of ischemic CMP with EF 10-15%, severe MR, mod to severe TR. Will check CXR today to help assess for fluid. Will check BNP in am. Will check limted echo to assess his RV, TR. Case reviewed with Dr Hodgson. (2) CORA (acute kidney injury): Status: Acute Assessment and Plan: as above (3) Acute cholecystitis: Status: Acute Assessment and Plan: LFTs remain elevated. Has some nausea and abdomenal tenderness today. Will place his atorvastatin on hold. Being followed by GI (4) Ischemic cardiomyopathy: Problem details: EF 15-20%, grade 3 diastolic dysfunction Status: Acute Assessment and Plan: Known hx of CAD, CABG with recent cardiac cath showing patent graphs and OM stenosis that is being managed medically. He has ischemic CMP, has been intolerant to optimal neurohormonal modulation meds due to low BPs. Just underwent Bi V ICD placement at [facility] [place]. Home Metoprolol currently on hold due to low BP. BP this am 106/66, 97/59. Plan restart when appropriate. (5) NSVT (nonsustained ventricular tachycardia): Status: Acute Assessment and Plan: Brief runs noted on tele. Has ICD in place. (6) LBBB (left bundle branch block): Status: Acute Assessment and Plan: Chronic underlying. (7) Atherosclerotic cardiovascular disease: Status: Acute Assessment and Plan: as above. On aspirin, atorvastatin, metoprolol, Ranexa at home. Will place atorvastatin on hold. Metoprolol already on hold and plan to restart when able. Fall Risk Details Current Medications: Current Medications Generic Name Dose Route Start Last Admin Trade Name Freq PRN Reason Stop Dose Admin Acetaminophen 650 mg 10/18/20 21:33 Acetaminophen 325 Mg Tablet PO Q6H PRN Pain, Mild (Pain Scale 1-3) Albuterol/Ipratropium 3 ml 10/18/20 21:37 Albuterol/Iprat 2.5/0.5mg 3 Ml Ampul.Neb INHALE RQ4H PRN Shortness of Breath/Wheezing Artificial Tears 1 drop 10/18/20 21:37 Artificial Tears 15 Ml Drops EYE-BOTH Q4H PRN Dry Eye(S) Aspirin 81 mg 10/19/20 09:00 10/21/20 08:45 Aspirin Enteric Coated 81 Mg Tablet.Dr PO 81 mg DAILY WINNIE Administration Atorvastatin Calcium 80 mg 10/19/20 09:00 10/21/20 08:46 Atorvastatin Calcium 80 Mg Tablet PO 80 mg DAILY WINNIE Administration Famotidine 20 mg 10/19/20 09:00 10/21/20 08:46 Famotidine 20 Mg Tablet PO 20 mg BID WINNIE Administration Insulin Human Lispro 0 unit 10/19/20 07:30 10/21/20 07:40 Insulin Lispro 100 Unit/Ml 3 Ml Vial SUBCUT Not Given [facility] Protocol Pharmacy Consult 1 each 10/18/20 14:31 Consult Rx Perform Med Rec MISCELLANE ONCE PRN Consult order Ranolazine 500 mg 10/19/20 09:00 10/21/20 08:46 Ranolazine 500 Mg Tab.Er.12h PO 500 mg BID WINNIE Administration Senna 17.2 mg 10/18/20 21:33 Sennosides 8.6 Mg Tablet PO BEDTIME PRN Constipation Sodium Chloride 3 ml 10/19/20 00:00 10/21/20 08:45 0.9 % Sodium Chloride Flush 3 Ml Syringe IVFLUSH 3 ml QSHIFT WINNIE Administration Vitamin D 50 mcg 10/19/20 09:00 10/21/20 08:46 Cholecalciferol (Vitamin D3) 25 Mcg Tablet PO 50 mcg DAILY WINNIE Administration Time Spent With Patient Time: Total time spent is greater than 50% in coordination of care (as documented) at patient's floor/unit and/or counseling patient: 20 Time with patient: 15 - 24 minutes
[2020-10-21 11:47] LABS: Glucose, Whole Blood 129 mg/dL (60-115)
[2020-10-21 12:00] VITALS: BP 102/55; PULSE 74; RESP 20; TEMP 36.8; O2SAT 95
--- NOTE | 2020-10-21 13:16 | HO.PM.IMPN ---
Subjective Subjective Date of Service: 10/21/20 Interval History: nsauea Cardiovascular Cardiovascular: Reports no additional cardiovascular complaints Gastrointestinal Gastrointestinal: Reports no additional gastrointestinal complaints Physical Exam Vital Signs: Vital Signs: Last Vital Signs Temp 98.2 F 10/21/20 12:00 Pulse 74 10/21/20 12:00 Resp 20 10/21/20 12:00 BP 102/55 L 10/21/20 12:00 Pulse Ox 95 10/21/20 12:00 Body Mass Index 22.3 General: AO X 3, no acute distress, frail Resp: CTA bilateral CVS: S1,S2,RRR, +jvd GI: soft, non tender, non distended Neuro: motor grossly intact Psych: appropriate affect Objective Data Current Medications Generic Name Dose Route Start Last Admin Trade Name Kikoq PRN Reason Stop Dose Admin Acetaminophen 650 mg 10/18/20 21:33 Acetaminophen 325 Mg Tablet PO Q6H PRN Pain, Mild (Pain Scale 1-3) Albuterol/Ipratropium 3 ml 10/18/20 21:37 Albuterol/Iprat 2.5/0.5mg 3 Ml Ampul.Neb INHALE RQ4H PRN Shortness of Breath/Wheezing Artificial Tears 1 drop 10/18/20 21:37 Artificial Tears 15 Ml Drops EYE-BOTH Q4H PRN Dry Eye(S) Aspirin 81 mg 10/19/20 09:00 10/21/20 08:45 Aspirin Enteric Coated 81 Mg Tablet. PO 81 mg DAILY WINNIE Administration Famotidine 20 mg 10/19/20 09:00 10/21/20 08:46 Famotidine 20 Mg Tablet PO 20 mg BID WINNIE Administration Sodium Chloride 1,000 mls @ 50 mls/hr 10/21/20 13:15 Ns IVCONT 10/21/20 23:14 .Q20H [facility] Insulin Human Lispro 0 unit 10/19/20 07:30 10/21/20 11:38 Insulin Lispro 100 Unit/Ml 3 Ml Vial SUBCUT Not Given QIDACHS [facility] Protocol Pharmacy Consult 1 each 10/18/20 14:31 Consult Rx Perform Med Rec MISCELLANE ONCE PRN Consult order Ranolazine 500 mg 10/19/20 09:00 10/21/20 08:46 Ranolazine 500 Mg Tab.Er.12h PO 500 mg BID WINNIE Administration Senna 17.2 mg 10/18/20 21:33 Sennosides 8.6 Mg Tablet PO BEDTIME PRN Constipation Sodium Chloride 3 ml 10/19/20 00:00 10/21/20 08:45 0.9 % Sodium Chloride Flush 3 Ml Syringe IVFLUSH 3 ml QSHIFT WINNIE Administration Vitamin D 50 mcg 10/19/20 09:00 10/21/20 08:46 Cholecalciferol (Vitamin D3) 25 Mcg Tablet PO 50 mcg DAILY WINNIE Administration Labs CBC & Chem 7: 10/21/20 06:01 10/21/20 06:01 Microbiology Microbiology Results: Microbiology 10/18/20 15:16 Blood - Venous Blood Culture - Preliminary No growth after 48 hours. 10/18/20 15:11 Blood - Venous Blood Culture - Preliminary No growth after 48 hours. Assessment and Plan (1) Ischemic cardiomyopathy: Problem details: EF 15-20%, grade 3 diastolic dysfunction Status: Acute Assessment and Plan: 85M presented with abd pain, nausea and vomitting, found to have LEON and acute cholecystitis acute cholecystitis on CT no ruq tenderness, hida negative, doubt acute cholecystitis cultures negative, dced antibiotics 10/20 advance diet leon on CKD holdin lasix, metoprolol received 1L slowly over last couple days, no improvement, will give another 500cc slowly today chf with reduced EF, ischemic recent AICD holding metoprolol has not tolerated further neurohormonal therapy in past continue asa, statin, ranexa cirrhosis ?cardiac hepatopathy negative serologies DM insulin
[2020-10-21 14:24] VITALS: BP 106/58; PULSE 79; RESP 18; TEMP 36.6
[2020-10-21 15:24] VITALS: BP 101/57; PULSE 76; RESP 19; TEMP 36.2; O2SAT 96
[2020-10-21] MEDS: 0.9 % Sodium Chloride 1,000 ML 50 ML IVCONT (15:50)
[2020-10-21 16:36] LABS: Glucose, Whole Blood 165 mg/dL (60-115)
[2020-10-21 16:43] LABS: Glucose, Whole Blood 145 mg/dL (60-115)
[2020-10-21 19:32] VITALS: BP 93/51; PULSE 77; RESP 19; TEMP 36.8; O2SAT 91
[2020-10-21 20:10] LABS: Glucose, Whole Blood 169 mg/dL (60-115)
[2020-10-21] MEDS: Insulin Lispro 100 UNIT/ML 3 ML VIAL SUBCUT (20:29)
--- NOTE | 2020-10-21 23:19 | PM.PNNEP ---
Subjective Subjective Date of Service: 10/21/20 Principal diagnosis: Chronic HFrEF, hypotension, abnormal LFT, CORA Interval history: nauea today Abd discomfort Physical Exam Vital Signs: Vital Signs: Last Vital Signs Temp 98.3 F 10/21/20 19:32 Pulse 77 10/21/20 19:32 Resp 19 10/21/20 19:32 BP 93/51 L 10/21/20 19:32 Pulse Ox 91 L 10/21/20 19:32 Body Mass Index 22.3 Const: General: cooperative and no acute distress Resp: Other: Wheeze auscultated at bedside. No crackles on exam. Auscultation: clear to auscultation bilaterally Cardio: Other: AICD in place Jugular venous distension: no JVD Rate: regular rate Heart sounds: S1 normal heart sound present and S2 normal heart sound present GI: Inspection: Yes normal to inspection Palpation (GI): Soft to palpation Extrem: Other: Trace pre-tibial edema, chronic Objective Data Labs CBC & Chem 7: 10/21/20 06:01 10/21/20 06:01 Labs: Laboratory Results - last 24 hr 10/21/20 10/21/20 10/21/20 06:01 06:01 06:01 WBC 6.2 RBC 3.75 L Hgb 12.3 L Hct 37.4 L MCV 99.7 H MCH 32.8 MCHC 32.9 RDW 18.1 H Plt Count 120 L MPV 12.0 Immature Gran % (Auto) 0.5 H Neut % (Auto) 64.1 Lymph % (Auto) 14.3 L [place] % (Auto) 18.2 H Eos % (Auto) 2.3 Baso % (Auto) 0.6 Lymph # (Auto) 0.9 L [place] # (Auto) 1.1 Eos # (Auto) 0.1 Baso # (Auto) 0.0 Abs Immat Gran (auto) 0.03 Absolute Neuts (auto) 4.0 Absolute Nucleated RBC 0.000 Nucleated RBC % (auto) 0.0 PT 15.5 H INR 1.3 H Sodium 138 Potassium 4.5 Chloride 102 Carbon Dioxide 26 Anion Gap 15 BUN 39 H Creatinine 2.11 H Estim Creat Clear Calc 21.7 Estimated GFR 30 POC Glucose Fasting Glucose 99 Calcium 8.9 Total Bilirubin 1.9 H Direct Bilirubin 0.8 H AST 314 H ALT 426 H Alkaline Phosphatase 107 Total Protein 5.5 L Albumin 3.3 L 10/21/20 10/21/20 10/21/20 07:09 11:26 15:26 WBC RBC Hgb Hct MCV MCH MCHC RDW Plt Count MPV Immature Gran % (Auto) Neut % (Auto) Lymph % (Auto) [place] % (Auto) Eos % (Auto) Baso % (Auto) Lymph # (Auto) [place] # (Auto) Eos # (Auto) Baso # (Auto) Abs Immat Gran (auto) Absolute Neuts (auto) Absolute Nucleated RBC Nucleated RBC % (auto) PT INR Sodium Potassium Chloride Carbon Dioxide Anion Gap BUN Creatinine Estim Creat Clear Calc Estimated GFR POC Glucose 116 H 129 H 165 H Fasting Glucose Calcium Total Bilirubin Direct Bilirubin AST ALT Alkaline Phosphatase Total Protein Albumin 10/21/20 10/21/20 16:35 19:35 WBC RBC Hgb Hct MCV MCH MCHC RDW Plt Count MPV Immature Gran % (Auto) Neut % (Auto) Lymph % (Auto) [place] % (Auto) Eos % (Auto) Baso % (Auto) Lymph # (Auto) [place] # (Auto) Eos # (Auto) Baso # (Auto) Abs Immat Gran (auto) Absolute Neuts (auto) Absolute Nucleated RBC Nucleated RBC % (auto) PT INR Sodium Potassium Chloride Carbon Dioxide Anion Gap BUN Creatinine Estim Creat Clear Calc Estimated GFR POC Glucose 145 H 169 H Fasting Glucose Calcium Total Bilirubin Direct Bilirubin AST ALT Alkaline Phosphatase Total Protein Albumin Microbiology Microbiology Results: Microbiology 10/18/20 15:16 Blood - Venous Blood Culture - Preliminary No growth after 48 hours. 10/18/20 15:11 Blood - Venous Blood Culture - Preliminary No growth after 48 hours. Assessment & Plan Assessment and plan (1) Chronic HFrEF (heart failure with reduced ejection fraction): Status: Acute (2) CORA (acute kidney injury): Status: Acute (3) Acute cholecystitis: Status: Acute (4) Ischemic cardiomyopathy: Status: Acute (5) NSVT (nonsustained ventricular tachycardia): Status: Acute Assessment and Plan: e. (6) LBBB (left bundle branch block): Status: Acute Assessment and Plan: -Pleasant 85 year gentleman with CORA - -He presented for nausea vomiting and hypertension. -Cardiomyopathy and severe mitral valve regurgitation -Abnormal liver enzymes. Prerenal was the initial thought process/ ? ATN Agree with hydrating gently with 500 ml May need to restart Diuretics in AM Urine Studies ordered No [place] on Imaging Avoid nephrotoxins F/u renal func D/w Medical team (7) Atherosclerotic cardiovascular disease: Status: Acute Assessment and Plan: ox Time Spent With Patient Time: Total time spent is greater than 50% in coordination of care (as documented) at patient's floor/unit and/or counseling patient:
[2020-10-22 00:06] VITALS: BP 94/60; PULSE 68; RESP 18; TEMP 36.6; O2SAT 96
[2020-10-22 04:00] VITALS: BP 113/65; PULSE 81; RESP 20; TEMP 36.6; O2SAT 97
[2020-10-22 06:51] LABS: MANUAL DIFF FLAG NO
[2020-10-22 06:57] LABS: Basophils Percent Auto 0.5 % (0-2); Eosinophils Absolute Auto 0.1 X10*3/uL (0.0-0.4); Eosinophils Percent Auto 2.1 % (0-4); Hematocrit 38.2 % (42-52); Hemoglobin 12.6 g/dl (14.0-18.0); Imm Gran Abs Auto 0.01 X10*3/uL (0.00-0.03); Imm Gran Pct Auto 0.2 % (0.0-0.4); Mean Corpuscular Hemoglobin 33.4 pg (27.0-33.0); Mean Corpuscular Volume 101.3 fL (80-98); Monocytes Percent Auto 16.3 % (2-11); Neutrophils Absolute Auto 3.7 X10*3/uL (2.0-8.3); Neutrophils Percent Auto 63.9 % (45-73); Platelet Count 123 X10*3/uL (160-400); Red Blood Count 3.77 X10*6/uL (4.60-5.80); Red Cell Distribution Width 18.4 % (11.0-16.0); White Blood Count 5.8 X10*3/uL (4.8-10.8)
[2020-10-22 07:13] LABS: Creatinine Urine 93.72 mg/dL; Total Protein Urine Random 168 mg/dL (<12)
[2020-10-22 07:27] LABS: Anion Gap 13 (12-20); Blood Urea Nitrogen 28 mg/dL (9-16); Calcium 8.8 mg/dL (8.4-10.2); Carbon Dioxide 26 mmol/L (22-29); Chloride 101 mmol/L (96-108); Creatinine Clr Calc Pharmacy 28.8; Estimated Glomerular Filt Rate 42; Glucose Fasting 102 mg/dL (60-99); Potassium 4.3 mmol/L (3.3-5.1); Sodium 136 mmol/L (135-145)
[2020-10-22 07:30] LABS: B Type Natriuretic Peptide 4510 pg/mL (<100)
[2020-10-22 07:33] LABS: Glucose, Whole Blood 103 mg/dL (60-115)
[2020-10-22 07:44] VITALS: BP 101/60; PULSE 78; RESP 20; TEMP 36.4; O2SAT 95
[2020-10-22] MEDS: Ranolazine 500 MG TAB.ER.12H PO ×2 (08:11→20:06)
[2020-10-22] MEDS: Cholecalciferol (Vitamin D3) 25 MCG TABLET 50 MCG PO (08:12)
[2020-10-22] MEDS: Famotidine 20 MG TABLET PO ×2 (08:12→20:06)
[2020-10-22] MEDS: Aspirin Enteric Coated 81 MG TABLET.DR PO (08:12)
--- NOTE | 2020-10-22 09:31 | P.PNCA_ITS ---
Subjective Subjective Date of Service: 10/22/20 <ANTIONE De Santiago - Last Filed: 10/22/20 10:00> 10/22/20 <Cassius Hodgson MD - Last Filed: 10/22/20 12:08> Principal diagnosis: Chronic HFrEF, hypotension, abnormal LFT, CORA <ANTIONE De Santiago - Last Filed: 10/22/20 10:00> Interval history: Cardiology follow up for the above. Seen at 0830. Today he is observed laying supine in bed, breathing comfortably. He reports feeling good. No chest pains with the exception of soreness at ICD site. No palpitation, dizziness. He continues to have some nausea when eating, no vomiting. He denies abdominal discomfort today. No PND, edema. IV fluids infusing at 50cchr. <ANTIONE De Santiago - Last Filed: 10/22/20 10:00> Review of Systems Review of Systems as above <ANTIONE De Santiago - Last Filed: 10/22/20 10:00> Yes all other systems are reviewed and are negative <ANTIONE De Santiago - Last Filed: 10/22/20 10:00> Physical Exam Vital Signs: Last Vital Signs Temp 97.5 F 10/22/20 07:44 Pulse 78 10/22/20 07:44 Resp 20 10/22/20 07:44 BP 101/60 10/22/20 07:44 Pulse Ox 95 10/22/20 07:44 Body Mass Index 22.3 <ANTIONE De Santiago - Last Filed: 10/22/20 10:00> Const General: cooperative, no acute distress, alert and awake <ANTIONE De Santiago - Last Filed: 10/22/20 10:00> Orientation/consciousness: patient oriented x3 <ANTIONE De Santiago Last Filed: 10/22/20 10:00> Neck Neck: Yes normal visual inspection and Yes JVD (V waves from TR) <ANTIONE De Santiago Last Filed: 10/22/20 10:00> Carotids: normal carotid upstroke <ANTIONE De Santiago Last Filed: 10/22/20 10:00> Resp Other: Lungs clear in upper lobes. Left base with fine rales, Right base with fine rales and expiratory wheezes noted <SHARONA De SantiagoC - Last Filed: 10/22/20 10:00> Effort & Inspection: normal respiratory effort, able to speak in complete sentences and not labored <Venessa Anthony SHARONA PalomoC - Last Filed: 10/22/20 10:00> Cardio Other: Heart tones regular, ICD site - Left upper chest with residual swelling and ecchimosis - resolving. Steristrips intact, no signs of infection <Venessa Anthony SHARONA PalomoC - Last Filed: 10/22/20 10:00> Jugular venous distension: JVD present <SHARONA De SantiagoC - Last Filed: 10/22/20 10:00> Rate: regular rate <SHARONA De SantiagoC - Last Filed: 10/22/20 10:00> Rhythm: regular rhythm <Venessa Palomo NP-C - Last Filed: 10/22/20 10:00> Heart sounds: S1 normal heart sound present and S2 normal heart sound present <Venessa Anthony ROSALIO Palomo-C - Last Filed: 10/22/20 10:00> Peripheral pulses: Peripheral pulses 2+ throughout <Venessa Palomo NP-C - Last Filed: 10/22/20 10:00> GI Inspection: Yes normal to inspection <Venessa Palomo NP-C - Last Filed: 10/22/20 10:00> Neuro General: patient oriented x3 <Venessa Palomo NP-C - Last Filed: 10/22/20 10:00> Extrem General: Yes normal to inspection and No edema <Venessa Palomo NP-C - Last Filed: 10/22/20 10:00> Results Labs and Meds Result diagrams: : 10/22/20 06:00 10/22/20 06:00 <SHARONA De SantiagoC - Last Filed: 10/22/20 10:00> Lab results: Laboratory Results - last 24 hr 10/21/20 10/21/20 10/21/20 11:26 15:26 16:35 WBC RBC Hgb Hct MCV MCH MCHC RDW Plt Count MPV Immature Gran % (Auto) Neut % (Auto) Lymph % (Auto) [place] % (Auto) Eos % (Auto) Baso % (Auto) Lymph # (Auto) [place] # (Auto) Eos # (Auto) Baso # (Auto) Abs Immat Gran (auto) Absolute Neuts (auto) Absolute Nucleated RBC Nucleated RBC % (auto) Sodium Potassium Chloride Carbon Dioxide Anion Gap BUN Creatinine Estim Creat Clear Calc Estimated GFR POC Glucose 129 H 165 H 145 H Fasting Glucose Calcium B-Natriuretic Peptide U Random Total Protein Ur Random Sodium Urine Creatinine 10/21/20 10/22/20 10/22/20 19:35 06:00 06:00 WBC 5.8 RBC 3.77 L Hgb 12.6 L Hct 38.2 L MCV 101.3 H MCH 33.4 H MCHC 33.0 RDW 18.4 H Plt Count 123 L MPV 12.0 Immature Gran % (Auto) 0.2 Neut % (Auto) 63.9 Lymph % (Auto) 17.0 L [place] % (Auto) 16.3 H Eos % (Auto) 2.1 Baso % (Auto) 0.5 Lymph # (Auto) 1.0 L [place] # (Auto) 1.0 Eos # (Auto) 0.1 Baso # (Auto) 0.0 Abs Immat Gran (auto) 0.01 Absolute Neuts (auto) 3.7 Absolute Nucleated RBC 0.000 Nucleated RBC % (auto) 0.0 Sodium Potassium Chloride Carbon Dioxide Anion Gap BUN Creatinine Estim Creat Clear Calc Estimated GFR POC Glucose 169 H Fasting Glucose Calcium B-Natriuretic Peptide 4510 H U Random Total Protein Ur Random Sodium Urine Creatinine 10/22/20 10/22/20 10/22/20 06:00 06:31 06:31 WBC RBC Hgb Hct MCV MCH MCHC RDW Plt Count MPV Immature Gran % (Auto) Neut % (Auto) Lymph % (Auto) [place] % (Auto) Eos % (Auto) Baso % (Auto) Lymph # (Auto) [place] # (Auto) Eos # (Auto) Baso # (Auto) Abs Immat Gran (auto) Absolute Neuts (auto) Absolute Nucleated RBC Nucleated RBC % (auto) Sodium 136 Potassium 4.3 Chloride 101 Carbon Dioxide 26 Anion Gap 13 BUN 28 H Creatinine 1.59 H Estim Creat Clear Calc 28.8 Estimated GFR 42 POC Glucose Fasting Glucose 102 H Calcium 8.8 B-Natriuretic Peptide U Random Total Protein 168 H Ur Random Sodium 21.0 Urine Creatinine 93.72 10/22/20 07:14 WBC RBC Hgb Hct MCV MCH MCHC RDW Plt Count MPV Immature Gran % (Auto) Neut % (Auto) Lymph % (Auto) [place] % (Auto) Eos % (Auto) Baso % (Auto) Lymph # (Auto) [place] # (Auto) Eos # (Auto) Baso # (Auto) Abs Immat Gran (auto) Absolute Neuts (auto) Absolute Nucleated RBC Nucleated RBC % (auto) Sodium Potassium Chloride Carbon Dioxide Anion Gap BUN Creatinine Estim Creat Clear Calc Estimated GFR POC Glucose 103 Fasting Glucose Calcium B-Natriuretic Peptide U Random Total Protein Ur Random Sodium Urine Creatinine <ANTIONE De Santiago - Last Filed: 10/22/20 10:00> Imaging Radiologist's impression: Impressions Chest X-Ray 10/21/20 14:31 IMPRESSION: Interval mild pulmonary vascular congestion with small bibasilar effusions, new from prior study 10/18/2020. <ANTIONE De Santiago - Last Filed: 10/22/20 10:00> Progress Note: A&P Assessment and plan (1) Chronic HFrEF (heart failure with reduced ejection fraction): Status: Acute <ANTIONE De Santiago - Last Filed: 10/22/20 10:00> Assessment and Plan: Admit with Nausea, vomit, abdomenal pains. Found to have CORA. His diuretics have been on hold and he has recieved IV Fluids with gradual improvement in his Creatinine. Cr today 1.59, down from 2.11 yesterday. CXR yesterday does show mild pulm vascular congestion with small bibasal effusions, new from . On exam he does have rales in bases. Fluid balance + 1238. He has had increased urine outpt in last day with improvement in kidney function. On exam he has V waves which make assessment for fluid overload challenging. BNP today is 4510 and is chronically elevated. He does have a known hx of ischemic CMP with EF 10-15%, severe MR, mod to severe TR. We did plan for Limited echo to reassess his RV/ TR however his Cr did improve with fluids so we will cx it. Since CXR and exam do show some evidence of fluid overload - Recommend to Hold further IV fluids and then tomorrow plan to start on Lasix 40mg once daily. Home lasix was 40mg bid. Case reviewed with Dr Hodgson. We will follow <ANTIONE De Santiago - Last Filed: 10/22/20 10:00> (2) CORA (acute kidney injury): Status: Acute <SHARONA De SantiagoC - Last Filed: 10/22/20 10:00> Assessment and Plan: impoving. Followed by nephrology <SHARONA De SantiagoC - Last Filed: 10/22/20 10:00> (3) Acute cholecystitis: Status: Acute <SHARONA De SantiagoC - Last Filed: 10/22/20 10:00> (4) Ischemic cardiomyopathy: Status: Acute <SHARONA De SantiagoC - Last Filed: 10/22/20 10:00> Assessment and Plan: Known hx of CAD, CABG with recent cardiac cath showing patent graphs and OM stenosis that is being managed medically. He has ischemic CMP, has been intolerant to optimal neurohormonal modulation meds due to low BPs. Just unde rwent Bi V ICD [place] at [facility] [place]. Home Metoprolol currently on hold due to low BP. BP this am 101/ 60. Plan restart when appropriate. <SHARONA De SantiagoC - Last Filed: 10/22/20 10:00> (5) NSVT (nonsustained ventricular tachycardia): Status: Acute <SHARONA De SantiagoC - Last Filed: 10/22/20 10:00> Assessment and Plan: None in last [address] <SHARONA De SantiagoC - Last Filed: 10/22/20 10:00> (6) Atherosclerotic cardiovascular disease: Status: Acute <SHARONA De SantiagoC - Last Filed: 10/22/20 10:00> Assessment and Plan: as above. On aspirin, atorvastatin, metoprolol, Ranexa at home. Will place atorvastatin on hold. Metoprolol already on hold and plan to restart when able <SHARONA De SantiagoC - Last Filed: 10/22/20 10:00> Fall Risk Details Current Medications: Current Medications Generic Name Dose Route Start Last Admin Trade Name Freq PRN Reason Stop Dose Admin Acetaminophen 650 mg 10/18/20 21:33 Acetaminophen 325 Mg Tablet PO Q6H PRN Pain, Mild (Pain Scale 1-3) Albuterol/Ipratropium 3 ml 10/18/20 21:37 Albuterol/Iprat 2.5/0.5mg 3 Ml Ampul.Neb INHALE RQ4H PRN Shortness of Breath/Wheezing Artificial Tears 1 drop 10/18/20 21:37 Artificial Tears 15 Ml Drops EYE-BOTH Q4H PRN Dry Eye(S) Aspirin 81 mg 10/19/20 09:00 10/22/20 08:12 Aspirin Enteric Coated 81 Mg Tablet.Dr PO 81 mg DAILY WINNIE Administration Famotidine 20 mg 10/19/20 09:00 10/22/20 08:12 Famotidine 20 Mg Tablet PO 20 mg BID WINNIE Administration Insulin Human Lispro 0 unit 10/19/20 07:30 10/22/20 08:07 Insulin Lispro 100 Unit/Ml 3 Ml Vial SUBCUT Not Given QIDACHS [facility] Protocol Pharmacy Consult 1 each 10/18/20 14:31 Consult Rx Perform Med Rec MISCELLANE ONCE PRN Consult order Ranolazine 500 mg 10/19/20 09:00 10/22/20 08:11 Ranolazine 500 Mg Tab.Er.12h PO 500 mg BID WINNIE Administration Senna 17.2 mg 10/18/20 21:33 Sennosides 8.6 Mg Tablet PO BEDTIME PRN Constipation Sodium Chloride 3 ml 10/19/20 00:00 10/22/20 08:14 0.9 % Sodium Chloride Flush 3 Ml Syringe IVFLUSH Not Given QSHIFT [facility] Vitamin D 50 mcg 10/19/20 09:00 10/22/20 08:12 Cholecalciferol (Vitamin D3) 25 Mcg Tablet PO 50 mcg DAILY WINNIE Administration <ANTIONE De Santiago - Last Filed: 10/22/20 10:00> Time Spent With Patient Time: Total time spent is greater than 50% in coordination of care (as documented) at patient's floor/unit and/or counseling patient: 22 <ANTIONE De Santiago - Last Filed: 10/22/20 10:00> Time with patient: 15 - 24 minutes <SHARONA De SantiagoC - Last Filed: 10/22/20 10:00>
--- NOTE | 2020-10-22 11:45 | MHC.CM.PN ---
Per ROUNDS discussion, Patient is not yet medically cleared for dc (Continues with Nausea). Goal is Home/resume [facility] and CM will follow for possible need to adjust the dc plan.
[2020-10-22 12:00] VITALS: BP 95/57; PULSE 81; RESP 22; TEMP 36.2; O2SAT 94
[2020-10-22 12:09] LABS: Glucose, Whole Blood 156 mg/dL (60-115)
[2020-10-22] MEDS: Insulin Lispro 100 UNIT/ML 3 ML VIAL SUBCUT (12:16)
--- NOTE | 2020-10-22 13:16 | P.PNIM_ITS ---
Subjective Subjective Date of Service: 10/22/20 Interval History: the patient was seen and evaluated this morning Laying in bed, feels comfortable overall Blood pressure still running on the lower end but has improved Denies any fever, chills or shortness of breath No reported other overnight events. Systemic review: No fever, chills or weakness No chest pain, palpitation No shortness of breath or coughing No abdominal pain, nausea or vomiting No urinary symptoms No any rash or wounds Physical Exam Vital Signs: Vital Signs: Last Vital Signs Temp 97.5 F 10/22/20 07:44 Pulse 78 10/22/20 07:44 Resp 20 10/22/20 07:44 BP 101/60 10/22/20 07:44 Pulse Ox 95 10/22/20 07:44 Body Mass Index 22.3 Const: Other: Constitutional : Alert, oriented, not in distress Neck : Normal inspection, Supple Cardiovascular : RRR, S1 S2, no lower extremity edema Respiratory : Good bilateral air entry, no crackles, wheezes or rhonchi Gastrointestinal: soft, lax, Normal bowel sounds, Non tender Skin : Warm/Dry, No rash Neurological : Alert & oriented x3, No focal deficit Objective Data Current Medications Generic Name Dose Route Start Last Admin Trade Name Freq PRN Reason Stop Dose Admin Acetaminophen 650 mg 10/18/20 21:33 Acetaminophen 325 Mg Tablet PO Q6H PRN Pain, Mild (Pain Scale 1-3) Albuterol/Ipratropium 3 ml 10/18/20 21:37 Albuterol/Iprat 2.5/0.5mg 3 Ml Ampul.Neb INHALE RQ4H PRN Shortness of Breath/Wheezing Artificial Tears 1 drop 10/18/20 21:37 Artificial Tears 15 Ml Drops EYE-BOTH Q4H PRN Dry Eye(S) Aspirin 81 mg 10/19/20 09:00 10/22/20 08:12 Aspirin Enteric Coated 81 Mg Tablet. PO 81 mg DAILY WINNIE Administration Famotidine 20 mg 10/19/20 09:00 10/22/20 08:12 Famotidine 20 Mg Tablet PO 20 mg BID WINNIE Administration Furosemide 40 mg 10/23/20 09:00 Furosemide 40 Mg Tablet PO DAILY [facility] Protocol Insulin Human Lispro 0 unit 10/19/20 07:30 10/22/20 12:16 Insulin Lispro 100 Unit/Ml 3 Ml Vial SUBCUT 2 unit QIDACHS WINNIE Administration Protocol Pharmacy Consult 1 each 10/18/20 14:31 Consult Rx Perform Med Rec MISCELLANE ONCE PRN Consult order Ranolazine 500 mg 10/19/20 09:00 10/22/20 08:11 Ranolazine 500 Mg Tab.Er.12h PO 500 mg BID WINNIE Administration Senna 17.2 mg 10/18/20 21:33 Sennosides 8.6 Mg Tablet PO BEDTIME PRN Constipation Sodium Chloride 3 ml 10/19/20 00:00 10/22/20 08:14 0.9 % Sodium Chloride Flush 3 Ml Syringe IVFLUSH Not Given QSHIFT [facility] Vitamin D 50 mcg 10/19/20 09:00 10/22/20 08:12 Cholecalciferol (Vitamin D3) 25 Mcg Tablet PO 50 mcg DAILY WINNIE Administration Labs CBC & Chem 7: 10/22/20 06:00 10/22/20 06:00 Microbiology Microbiology Results: Microbiology 10/18/20 15:16 Blood - Venous Blood Culture - Preliminary No growth after 48 hours. 10/18/20 15:11 Blood - Venous Blood Culture - Preliminary No growth after 48 hours. Assessment and Plan (1) Ischemic cardiomyopathy: Status: Acute Assessment and Plan: 85M presented with abd pain, nausea and vomitting, found to have CORA and acute cholecystitis cora on CKD Kidney function improved to 1.6 this morning Discontinue IV fluid Nephrology input appreciated, start Lasix tomorrow chf with reduced EF, ischemic Hypotension recent AICD Discontinue metoprolol for low blood pressure readings has not tolerated further neurohormonal therapy in past continue asa, statin, ranexa cirrhosis cardiac hepatopathy negative serologies Mild protein calorie malnutrition Add Ensure acute cholecystitis on CT no ruq tenderness, hida negative, doubt acute cholecystitis cultures negative, dced antibiotics 10/20 advance diet DM insulin
[2020-10-22 15:18] VITALS: BP 127/61; PULSE 80; RESP 20; TEMP 36.3; O2SAT 94
[2020-10-22] MEDS: Acetaminophen 325 MG TABLET 650 MG PO (15:44)
[2020-10-22 16:23] LABS: Glucose, Whole Blood 72 mg/dL (60-115)
[2020-10-22] MEDS: 0.9 % Sodium Chloride Flush 3 ML SYRINGE IVFLUSH ×2 (16:50→20:15)
[2020-10-22 19:03] VITALS: BP 109/69; PULSE 80; RESP 20; TEMP 36; O2SAT 94
[2020-10-22 20:01] LABS: Glucose, Whole Blood 115 mg/dL (60-115)
--- NOTE | 2020-10-22 21:57 | P.PNNP_ITS ---
Subjective Subjective Date of Service: 10/22/20 Principal diagnosis: Chronic HFrEF, hypotension, abnormal LFT, ABISAI Interval history: the patient was seen and evaluated this morning Laying in bed, comfortable Systemic review: No fever, chills or weakness No chest pain, palpitation No shortness of breath or coughing No abdominal pain, nausea or vomiting No urinary symptoms No any rash or wounds Physical Exam Vital Signs: Vital Signs: Last Vital Signs Temp 96.8 F 10/22/20 19:03 Pulse 80 10/22/20 19:03 Resp 20 10/22/20 19:03 BP 109/69 10/22/20 19:03 Pulse Ox 94 10/22/20 19:03 Body Mass Index 22.3 Const: General: cooperative and no acute distress Resp: Other: Wheeze auscultated at bedside. No crackles on exam. Auscultation: clear to auscultation bilaterally Cardio: Other: AICD in place Jugular venous distension: no JVD Rate: regular rate Heart sounds: S1 normal heart sound present and S2 normal heart sound present GI: Inspection: Yes normal to inspection Palpation (GI): Soft to palpation Extrem: Other: Trace pre-tibial edema, chronic Objective Data Labs CBC & Chem 7: 10/22/20 06:00 10/22/20 06:00 Labs: Laboratory Results - last 24 hr 10/22/20 10/22/20 10/22/20 06:00 06:00 06:00 WBC 5.8 RBC 3.77 L Hgb 12.6 L Hct 38.2 L MCV 101.3 H MCH 33.4 H MCHC 33.0 RDW 18.4 H Plt Count 123 L MPV 12.0 Immature Gran % (Auto) 0.2 Neut % (Auto) 63.9 Lymph % (Auto) 17.0 L [place] % (Auto) 16.3 H Eos % (Auto) 2.1 Baso % (Auto) 0.5 Lymph # (Auto) 1.0 L [place] # (Auto) 1.0 Eos # (Auto) 0.1 Baso # (Auto) 0.0 Abs Immat Gran (auto) 0.01 Absolute Neuts (auto) 3.7 Absolute Nucleated RBC 0.000 Nucleated RBC % (auto) 0.0 Sodium 136 Potassium 4.3 Chloride 101 Carbon Dioxide 26 Anion Gap 13 BUN 28 H Creatinine 1.59 H Estim Creat Clear Calc 28.8 Estimated GFR 42 POC Glucose Fasting Glucose 102 H Calcium 8.8 B-Natriuretic Peptide 4510 H U Random Total Protein Ur Random Sodium Urine Creatinine 10/22/20 10/22/20 10/22/20 06:31 06:31 07:14 WBC RBC Hgb Hct MCV MCH MCHC RDW Plt Count MPV Immature Gran % (Auto) Neut % (Auto) Lymph % (Auto) [place] % (Auto) Eos % (Auto) Baso % (Auto) Lymph # (Auto) [place] # (Auto) Eos # (Auto) Baso # (Auto) Abs Immat Gran (auto) Absolute Neuts (auto) Absolute Nucleated RBC Nucleated RBC % (auto) Sodium Potassium Chloride Carbon Dioxide Anion Gap BUN Creatinine Estim Creat Clear Calc Estimated GFR POC Glucose 103 Fasting Glucose Calcium B-Natriuretic Peptide U Random Total Protein 168 H Ur Random Sodium 21.0 Urine Creatinine 93.72 10/22/20 10/22/20 10/22/20 11:45 16:13 19:52 WBC RBC Hgb Hct MCV MCH MCHC RDW Plt Count MPV Immature Gran % (Auto) Neut % (Auto) Lymph % (Auto) [place] % (Auto) Eos % (Auto) Baso % (Auto) Lymph # (Auto) [place] # (Auto) Eos # (Auto) Baso # (Auto) Abs Immat Gran (auto) Absolute Neuts (auto) Absolute Nucleated RBC Nucleated RBC % (auto) Sodium Potassium Chloride Carbon Dioxide Anion Gap BUN Creatinine Estim Creat Clear Calc Estimated GFR POC Glucose 156 H 72 115 Fasting Glucose Calcium B-Natriuretic Peptide U Random Total Protein Ur Random Sodium Urine Creatinine Microbiology Microbiology Results: Microbiology 10/18/20 15:16 Blood - Venous Blood Culture - Preliminary No growth after 48 hours. 10/18/20 15:11 Blood - Venous Blood Culture - Preliminary No growth after 48 hours. Assessment & Plan Assessment and plan (1) Ischemic cardiomyopathy: Status: Acute Assessment and Plan: 85M presented with abd pain, nausea and vomitting, found to have ABISAI and acute cholecystitis -Abisai on CKD- Kidney function improved to 1.6 this morning Off e IV fluid CAn start Lasix tomorrow -Chf with reduced EF, ischemic -Hypotension- F/u BP Time Spent With Patient Time: Total time spent is greater than 50% in coordination of care (as do cumented) at patient's floor/unit and/or counseling patient:
[2020-10-23] VITALS: BP 119/67; PULSE 76; RESP 18; TEMP 36.5; O2SAT 98
[2020-10-23 03:39] VITALS: BP 109/61; PULSE 77; RESP 18; TEMP 36.6; O2SAT 96
[2020-10-23 06:59] LABS: Hematocrit 36.6 % (42-52); Hemoglobin 12.2 g/dl (14.0-18.0); Mean Corpuscular HGB Conc 33.3 g/dl (31.0-36.0); Mean Corpuscular Hemoglobin 32.9 pg (27.0-33.0); Mean Corpuscular Volume 98.7 fL (80-98); Platelet Count 124 X10*3/uL (160-400); Red Blood Count 3.71 X10*6/uL (4.60-5.80)
[2020-10-23 07:16] LABS: Anion Gap 17 (12-20); Blood Urea Nitrogen 23 mg/dL (9-16); Calcium 8.8 mg/dL (8.4-10.2); Carbon Dioxide 22 mmol/L (22-29); Chloride 103 mmol/L (96-108); Creatinine Clr Calc Pharmacy 35.8; Estimated Glomerular Filt Rate 54; Glucose Random 93 mg/dL (60-115); Potassium 4.5 mmol/L (3.3-5.1); Sodium 137 mmol/L (135-145)
[2020-10-23 07:24] LABS: Glucose, Whole Blood 96 mg/dL (60-115)
[2020-10-23 07:27] VITALS: BP 112/66; PULSE 77; RESP 18; TEMP 36; O2SAT 97
[2020-10-23 08:50] VITALS: BP 112/66; PULSE 77; O2SAT 97
[2020-10-23] MEDS: Ranolazine 500 MG TAB.ER.12H PO (09:16)
[2020-10-23] MEDS: 0.9 % Sodium Chloride Flush 3 ML SYRINGE IVFLUSH (09:16)
[2020-10-23] MEDS: Cholecalciferol (Vitamin D3) 25 MCG TABLET 50 MCG PO (09:16)
[2020-10-23] MEDS: Furosemide 40 MG TABLET PO (09:17)
[2020-10-23] MEDS: Famotidine 20 MG TABLET PO (09:17)
[2020-10-23] MEDS: Aspirin Enteric Coated 81 MG TABLET.DR PO (09:17)
[2020-10-23 11:43] VITALS: BP 116/70; PULSE 83; RESP 20; TEMP 36.2; O2SAT 96
[2020-10-23 11:48] LABS: Glucose, Whole Blood 152 mg/dL (60-115)
[2020-10-23] MEDS: Insulin Lispro 100 UNIT/ML 3 ML VIAL SUBCUT (12:45)
--- NOTE | 2020-10-23 12:54 | PM.PNCARD ---
Subjective Subjective Date of Service: 10/23/20 Principal diagnosis: Chronic HFrEF, hypotension, abnormal LFT, CORA Interval history: Cardiology follow up for the above. Seen at 0845. Today he is first observed walking at steady pace in the halls with therapist, using walker. He reports doing well today. His primary complaint is nausea when he eats. No report of vomiting or abdominal pains. Mild sob after walking. No chest pains, palpitation, dizziness. ICD site has mild soreness. Daughter at bedside and update given. Review of Systems Review of Systems as above Yes all other systems are reviewed and are negative Physical Exam Vital Signs: Last Vital Signs Temp 97.2 F 10/23/20 11:43 Pulse 83 10/23/20 11:43 Resp 20 10/23/20 11:43 BP 116/70 10/23/20 11:43 Pulse Ox 96 10/23/20 11:43 Body Mass Index 22.3 Const General: cooperative, no acute distress, alert and awake Orientation/consciousness: patient oriented x3 Neck Other: V waves present Neck: Yes normal visual inspection Chest Other: ICD site with mild residual swelling and resolving ecchimosis. steristrips in place. Resp Other: Lung clear after walking. Rales heard yesterday - much less today Effort & Inspection: normal respiratory effort, able to speak in complete sentences and not labored Auscultation: clear to auscultation bilaterally, no crackles, no rales, no rhonchi and no wheezes Cardio Jugular venous distension: JVD Palpation: normal PMI Rate: regular rate Rhythm: regular rhythm Heart sounds: S1 normal heart sound present and S2 normal heart sound present Peripheral pulses: Peripheral pulses 2+ throughout GI Inspection: Yes normal to inspection Neuro General: patient oriented x3 Extrem General: Yes normal to inspection and No edema Results Labs and Meds Result diagrams: 10/23/20 05:51 10/23/20 05:51 Lab results: Laboratory Results - last 24 hr 10/22/20 10/22/20 10/23/20 16:13 19:52 05:51 WBC 5.0 RBC 3.71 L Hgb 12.2 L Hct 36.6 L MCV 98.7 H MCH 32.9 MCHC 33.3 RDW 18.0 H Plt Count 124 L MPV 12.0 Absolute Nucleated RBC 0.000 Nucleated RBC % (auto) 0.0 Sodium Potassium Chloride Carbon Dioxide Anion Gap BUN Creatinine Estim Creat Clear Calc Estimated GFR POC Glucose 72 115 Random Glucose Calcium 10/23/20 10/23/20 10/23/20 05:51 07:21 11:42 WBC RBC Hgb Hct MCV MCH MCHC RDW Plt Count MPV Absolute Nucleated RBC Nucleated RBC % (auto) Sodium 137 Potassium 4.5 Chloride 103 Carbon Dioxide 22 Anion Gap 17 BUN 23 H Creatinine 1.28 Estim Creat Clear Calc 35.8 Estimated GFR 54 POC Glucose 96 152 H Random Glucose 93 Calcium 8.8 Progress Note: A&P Assessment and plan (1) Chronic HFrEF (heart failure with reduced ejection fraction): Status: Acute Assessment and Plan: Admit with Nausea, vomit, abdominal pains. Found to have CORA. His diuretics have been on hold and he has recieved IV Fluids with gradual improvement in his Creatinine. Cr today 1.28, down from 2.11 on 10/21. He has a known hx of ischemic CMP with EF 10-15%, severe MR, mod to severe TR. Home lasix is 40mg bid - Will restart Lasix at 40mg once daily. Plan to recheck BMP in am. Nephrology following a well. We will follow as needed and plan to see him as outpt. (2) CORA (acute kidney injury): Status: Acute (3) Atherosclerotic cardiovascular disease: Status: Acute Assessment and Plan: Known hx of CAD, CABG with recent cardiac cath showing patent graphs and OM stenosis that is being managed medically. He has ischemic CMP, has been intolerant to optimal neurohormonal modulation meds due to low BPs. Just underwent Bi V ICD placement at [facility]. Home Metoprolol currently on hold due to low BP. - No reports of anginal sounding symptoms. Continue on aspirin, Ranexa at home. Atorvastatin on hold due to elevated LFT. Plan to restart when LFTs normalized. Continue to hold Metoprolol at this time. (4) Ischemic cardiomyopathy: Status: Acute Assessment and Plan: as above - New Bi V ICD. Tele shows V paced rhythm. Fall Risk Details Current Medications: Current Medications Generic Name Dose Route Start Last Admin Trade Name Freq PRN Reason Stop Dose Admin Acetaminophen 650 mg 10/18/20 21:33 10/22/20 15:44 Acetaminophen 325 Mg Tablet PO 650 mg Q6H PRN Administration Pain, Mild (Pain Scale 1-3) Albuterol/Ipratropium 3 ml 10/18/20 21:37 Albuterol/Iprat 2.5/0.5mg 3 Ml Ampul.Neb INHALE RQ4H PRN Shortness of Breath/Wheezing Artificial Tears 1 drop 10/18/20 21:37 Artificial Tears 15 Ml Drops EYE-BOTH Q4H PRN Dry Eye(S) Aspirin 81 mg 10/19/20 09:00 10/23/20 09:17 Aspirin Enteric Coated 81 Mg Tablet.Dr PO 81 mg DAILY WINNIE Administration Famotidine 20 mg 10/19/20 09:00 10/23/20 09:17 Famotidine 20 Mg Tablet PO 20 mg BID WINNIE Administration Furosemide 40 mg 10/23/20 09:00 10/23/20 09:17 Furosemide 40 Mg Tablet PO 40 mg DAILY WINNIE Administration Protocol Insulin Human Lispro 0 unit 10/19/20 07:30 10/23/20 12:45 Insulin Lispro 100 Unit/Ml 3 Ml Vial SUBCUT 2 unit QIDACHS WINNIE Administration Protocol Pharmacy Consult 1 each 10/18/20 14:31 Consult Rx Perform Med Rec MISCELLANE ONCE PRN Consult order Ranolazine 500 mg 10/19/20 09:00 10/23/20 09:16 Ranolazine 500 Mg Tab.Er.12h PO 500 mg BID WINNIE Administration Senna 17.2 mg 10/18/20 21:33 Sennosides 8.6 Mg Tablet PO BEDTIME PRN Constipation Sodium Chloride 3 ml 10/19/20 00:00 10/23/20 09:16 0.9 % Sodium Chloride Flush 3 Ml Syringe IVFLUSH 3 ml QSHIFT WINNIE Administration Vitamin D 50 mcg 10/19/20 09:00 10/23/20 09:16 Cholecalciferol (Vitamin D3) 25 Mcg Tablet PO 50 mcg DAILY WINNIE Administration Time Spent With Patient Time: Total time spent is greater than 50% in coordination of care (as documented) at patient's floor/unit and/or counseling patient: 22 Time with patient: 15 - 24 minutes
--- NOTE | 2020-10-23 12:56 | PC.NURSE ---
spoke with Sena (daughter who visited him this morning). Patient alert and oriented and per her the same way he always is. She is comfortable with discharge. Patient answering questions appropriately and following commands. Plan for d/c home at 4pm. Sena daughter will be at house waiting for him
--- NOTE | 2020-10-23 13:27 | MHC.CM.PN ---
Addendum entered by Flory Rivera 10/23/20 13:31: [facility] has been notified of discharge today. [facility] will resume services. Original Note: DP Male 85 DX HF, Hypotension He is discharged to home, with [facility] via chair veronica @ 4pm. His Dtr Sena will be at the apt to let him in.
--- NOTE | 2020-10-23 14:01 | P.DS_ITS ---
DS: Providers Provider Date of Service: 10/23/20 Date of admission: 10/18/20 21:33 Primary care physician: Caroline Rudolph DO Consults: 10/18/20 21:33 Consult to Cardiology Routine Consulting Provider: Cassius Hodgson Reason for consultation: CHF; s/p AICD; now p/w Cholecystitis; Consult to General Surgery Stat Consulting Provider: Gurinder Reynolds Reason for consultation: cholecystitis 10/18/20 21:40 Consult to Nephrology Routine Consulting Provider: Ja López Reason for consultation: CORA; ?Cardiorenal DS: Diagnosis Discharge Diagnosis (1) Chronic HFrEF (heart failure with reduced ejection fraction): Status: Acute (2) CORA (acute kidney injury): Status: Acute (3) Atherosclerotic cardiovascular disease: Status: Acute (4) Ischemic cardiomyopathy: Status: Acute (5) Transaminitis: Status: Acute (6) Hyperkalemia: Status: Acute (7) Cirrhosis: Status: Acute (8) Acute cholecystitis: Status: Acute (9) Hypotension: Status: Acute DS: Medications Discharge Medications Home Medications: Home Medications Medication Instructions Recorded Confirmed Combivent Respimat 1 puff INHALATION QID 08/06/20 10/18/20 Stiolto Respimat 2 puff INHALATION DAILY 09/01/20 10/18/20 Trulicity 0.75 mg SUBCUT DIOP 09/01/20 10/18/20 aspirin 81 mg PO DAILY 09/01/20 10/18/20 atorvastatin 80 mg PO DAILY 09/01/20 10/18/20 famotidine 20 mg PO BID 09/01/20 10/18/20 polyvinyl alcohol [Artificial 1 drp OPHTHALMIC (EYE) Q4H PRN 09/01/20 10/18/20 Tears (polyvin alc)] ranolazine 500 mg PO BID 09/01/20 10/18/20 cholecalciferol (vitamin D3) 1 cap PO QAM 09/18/20 10/18/20 Previous Rx's Medication Instructions Recorded furosemide 40 mg PO DAILY #0 tab 10/23/20 DS: Summary Hospital Course Hospital Course: Admission note HPI 85-year-old male with a past medical history of hypertension, hyperlipidemia, diabetes, CAD, COPD, CHF with EF of 10%, recent AICD placement, history of CABG, left bundle branch block, mitral regurgitation, pulmonary hypertension presented to the hospital with a chief complaint of nausea vomiting and abdominal discomfort over the past 4-5 days. Mentions that he has been having vomitus and unable to keep anything down. Denies any diarrhea. Denies any blood in the vomitus. Denies any chest pain. Complains of dizziness. Denies any fever chills cough. Review of all other systems is negative except mentioned above Per ER team patient noted to have right upper quadrant tenderness; ultrasound and CT scan consistent with acute cholecystitis. ER team spoke to Dr. Alcaraz from General surgery, who mentioned given the patient's cardiac history not a candidate for surgery, recommended cholecystostomy tube in the morning. Patient was given IV antibiotics. Admitted to the hospital Hospital course Admitted to the hospital for evaluation of nausea and vomited a with findings suggestive of acute kidney injury with creatinine above 2.2 from baseline 1.3. Treated with IV fluid and holding nephrotoxic medications. Evaluated by Nephrology home as his kidney function improved back to 1.2 at the day of discharge. He was seen by Cardiology for hypotension which was believed to be secondary to his home medications. Metoprolol was discontinued and Lasix was held. He had a recent AICD placement for significantly reduced ejection fraction of 15%. He ca nnot tolerate any neuralhormonal therapy as he failed to do that in the past. Cardiology recommended discharging home on the lower dose of Lasix of 40 mg daily and to follow-up in the office in a few weeks. Noticed to have transaminitis at presentation. A CT scan of the abdomen pelvis was concerning for possible acute cholecystitis. He was evaluated by surgical team and had a HIDA scan which turned to be negative. Dr. Reynolds from surgery suggest to hold any intervention given the patient general condition and high risk for complications. He was able to tolerate diet well and antibiotics was discontinued due 3 days before discharge. The CT scan also showed cirrhosis which relieved to be secondary to cardiac problem. Time Spent with Patient Time attestation: Total time spent providing and/or coordinating discharge services: Discharge coordination time: Greater than 30 minutes Physical Exam Vital Signs: Vital Signs: Last Vital Signs Temp 97.2 F 10/23/20 11:43 Pulse 83 10/23/20 11:43 Resp 20 10/23/20 11:43 BP 116/70 10/23/20 11:43 Pulse Ox 96 10/23/20 11:43 Body Mass Index 22.3 Const: Other: Constitutional : Alert, oriented, not in distress Neck : Normal inspection, Supple Cardiovascular : RRR, S1 S2, no lower extremity edema Respiratory : Good bilateral air entry, no crackles, wheezes or rhonchi Gastrointestinal: soft, lax, Normal bowel sounds, Non tender Skin : Warm/Dry, No rash Neurological : Alert & oriented x3, No focal deficit DS: Data Data Completed and Pending Labs on day of discharge: Laboratory Results - last 24 hr 10/22/20 10/22/20 10/23/20 16:13 19:52 05:51 WBC 5.0 RBC 3.71 L Hgb 12.2 L Hct 36.6 L MCV 98.7 H MCH 32.9 MCHC 33.3 RDW 18.0 H Plt Count 124 L MPV 12.0 Absolute Nucleated RBC 0.000 Nucleated RBC % (auto) 0.0 Sodium Potassium Chloride Carbon Dioxide Anion Gap BUN Creatinine Estim Creat Clear Calc Estimated GFR POC Glucose 72 115 Random Glucose Calcium 10/23/20 10/23/20 10/23/20 05:51 07:21 11:42 WBC RBC Hgb Hct MCV MCH MCHC RDW Plt Count MPV Absolute Nucleated RBC Nucleated RBC % (auto) Sodium 137 Potassium 4.5 Chloride 103 Carbon Dioxide 22 Anion Gap 17 BUN 23 H Creatinine 1.28 Estim Creat Clear Calc 35.8 Estimated GFR 54 POC Glucose 96 152 H Random Glucose 93 Calcium 8.8 Preliminary micro results at discharge 10/18/20 15:16 Blood Culture - Preliminary Blood - Venous No growth after 48 hours. 10/18/20 15:11 Blood Culture - Preliminary Blood - Venous No growth after 48 hours. Discharge Plan Discharge Patient Disposition: Home Health Service Discharge Diagnosis: Heart failure Acute kidney injury on chronic kidney disease Referrals: Caroline Rudolph DO [Primary Care Provider] - 1 Week (Please call and schedule a follow up appointment.) Discharge Medications: Continued Combivent Respimat 20-100 mcg/actuation Mist 1 puff INHALATION QID RF: 0 polyvinyl alcohol [Artificial Tears (polyvin alc)] 1.4 % Drops 1 drp OPHTHALMIC (EYE) Q4H PRN (Reason: Dry Eye(S)) RF: 0 Trulicity 0.75 mg/0.5 mL Pen Injector 0.75 mg SUBCUT DIOP RF: 0 ranolazine 500 mg Tablet Extended Release 12 Hr 500 mg PO BID RF: 0 aspirin 81 mg Tablet,Delayed Release (Dr/Ec) 81 mg PO DAILY RF: 0 famotidine 20 mg Tablet 20 mg PO BID RF: 0 Stiolto Respimat 2.5-2.5 mcg/actuation Mist 2 puff INHALATION DAILY RF: 0 cholecalciferol (vitamin D3) 50 mcg (2,000 unit) capsule 1 cap PO QAM RF: 0 Changed furosemide 80 mg tablet 40 mg PO DAILY Qty: 0 RF: 0 Held atorvastatin 80 mg Tablet 80 mg PO DAILY RF: 0 Hold Instructions: Resume on 10/31/20. Discontinued metoprolol succinate 25 mg tablet extended release 24 hr 1 tab PO QAM RF: 0 Discharge Orders: Discharge Order (Routine); Ordered 10/23/20 Ordered By: Papito Ryan Diet: advance to usual diet Activity on Discharge: As tolerated Stand Alone Forms: Patient Portal Discharge page Other Ambulatory Orders: Basic Metabolic Panel (Routine) Timeframe: 1 Week Facility: [facility] - Location: Laboratory Ordered By: Papito Ryan Liver Panel (Routine) Timeframe: 1 Week Facility: [facility] - Location: Laboratory Ordered By: Papito Ryan Care Plan Goals: Read below Health Concerns: Read below Plan of Treatment: Admitted to the hospital with abdominal pain, nausea and vomiting. Found to kidney injury. You were evaluated by water fabricator operator and treated with IV fluid and holding some of her home medications with good response as your kidney function improved back to almost baseline. To follow-up with your water fabricator operator as outpatient. You were noticed to low blood pressure readings. Evaluated by Cardiology with decided to hold the metoprolol and decrease your Lasix dose to [address] scan was questionable for possible in gallbladder inflammation. Evaluated by surgical team who did not feel you have acute infection and you were monitored with improvement during the hospital stay. To repeat blood test for kidneys and liver enzymes as outpatient. Assessment: Decrease Lasix to 40 mg daily Discontinue metoprolol Hold atorvastatin until follow-up with your developmental psychologist and repeat a liver enzymes
--- NOTE | 2020-10-23 15:57 | PC.NURSE ---
Spoke with patients daughter as well as patient in regards to lab work in 1 week. f/u with PCP and medication changes. Both are aware and agree to discharge instructions.
== END 2020-10-23 16:05 | disposition home health service (06) | DRG 445 ==
LOC: HO.ED 16:33 → HO.EDOVER 21:46 → HO.IMC 10-19 15:04
PROVIDERS: Internal Medicine; Internal Medicine Nephrology; Nurse Practitioner Family; Admitting Provider Hospitalist; Emergency Provider Emergency Medicine; PCP Family Medicine; Visit Provider Student in an Organized Health Care Education/Training Program
DX: K81.0 Acute cholecystitis (principal); I50.22 Chronic systolic (congestive) heart failure; I13.0 Hypertensive heart and chronic kidney disease with heart failure and stage 1 through stage 4 chronic kidney disease, or unspecified chronic kidney disease; I47.1 Supraventricular tachycardia; E44.1 Mild protein-calorie malnutrition; N17.9 Acute kidney failure, unspecified; I25.10 Atherosclerotic heart disease of native coronary artery without angina pectoris; E11.22 Type 2 diabetes mellitus with diabetic chronic kidney disease; I25.5 Ischemic cardiomyopathy; I25.2 Old myocardial infarction; Z95.1 Presence of aortocoronary bypass graft; E87.5 Hyperkalemia; I27.20 Pulmonary hypertension, unspecified; K74.60 Unspecified cirrhosis of liver; I44.7 Left bundle-branch block, unspecified; K21.9 Gastro-esophageal reflux disease without esophagitis; I34.0 Nonrheumatic mitral (valve) insufficiency; I95.9 Hypotension, unspecified; N18.31 Chronic kidney disease, stage 3a; E78.5 Hyperlipidemia, unspecified; Z95.810 Presence of automatic (implantable) cardiac defibrillator; Z68.22 Body mass index [BMI] 22.0-22.9, adult; Z20.822 Contact with and (suspected) exposure to COVID-19; Z79.82 Long term (current) use of aspirin; Z79.899 Other long term (current) drug therapy
CPT/HCPCS: 36415; 71045; 71046; 74176; 76705; 78226; 80048; 80076; 81001; 82947; 83605; 83690; 83735; 83880; 84156; 84300; 84484; 85025; 85027; 85610; 85730; 86140; 86704; 86706; 86803; 87040; 87340; 87635; 93005; 93975; 96361; 96365; 96375; 97162; 99285; A9537; J2405; J2543

== ENCOUNTER → 2020-10-27 11:06 | Outpatient (BNVA) | payer OTHER, SELFPAY | PROVIDERS: PCP Family Medicine; Visit Provider Nurse Practitioner Family | DX: I50.23 Acute on chronic systolic (congestive) heart failure (principal); I34.0 Nonrheumatic mitral (valve) insufficiency; I25.10 Atherosclerotic heart disease of native coronary artery without angina pectoris; I44.7 Left bundle-branch block, unspecified; I25.5 Ischemic cardiomyopathy; Z95.810 Presence of automatic (implantable) cardiac defibrillator; Z79.899 Other long term (current) drug therapy | CPT/HCPCS: 99212 ==

== ENCOUNTER 2020-10-31 09:22 | Inpatient (IN) | payer OTHER, SELFPAY ==
[2020-10-31] VITALS (8 sets, daily range): BP systolic 97–130; BP diastolic 62–79; PULSE 70–94; RESP 12–28; TEMP 36.3–36.8; O2SAT 98–100; BMI 22.1
--- NOTE | ~2020-10-31 | CT_ITS ---
EXAMINATION: CT HEAD WITHOUT CONTRAST CLINICAL INFORMATION: Dizziness. COMPARISON: MRI of brain 03/31/2010. TECHNIQUE: Contiguous axial imaging was performed from the skull base to vertex without intravenous administration of contrast. This CT examination was performed using dose optimization techniques as appropriate, variously including the following: *Automated exposure control *Adjustment of mA and/or kV according to patient size (this includes techniques or standardized protocols for targeted exams where dose is matched to indication/reason for exam; i.e. extremities or head) *Use of iterative reconstruction technique DLP: 676 mGy-cm FINDINGS: There is no evidence of acute intracranial hemorrhage. 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 No evidence of acute territorial infarction. No abnormal mass effect or midline shift is seen. Lester to white matter differentiation is well preserved. No extra-axial fluid collections are identified. The ventricles are normal in size. Calcifications in bilateral basal ganglia. The osseous structures and soft tissues are normal. The mastoid air cells and visualized portions of the paranasal sinuses are well aerated. CT/CT head/brain wo con IMPRESSION: No CT evidence of acute intracranial hemorrhage or acute territorial infarction. 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
--- NOTE | ~2020-10-31 | NM_ITS ---
Dictation: Question acute cholecystitis EXAMINATION: HIDA scan. 5 mCi technetium mebrofenin. Imaging over the upper abdomen 60 minutes. Findings; Uptake by the liver is within normal limits. Ductal activity by 13 minutes. Gallbladder activity by 22 minutes. Bowel activity is not observed. NM/NM hepatobiliary wo pharm IMPRESSION: Gallbladder is visualized. Therefore there is no scintigraphic evidence for obstruction of the cystic duct. The cystic duct is patent. The bowel activity however is not imaged up to 60 minutes. Consider delayed imaging. We understand the delayed images are canceled by the emergency room. Funmi Duque NP
--- NOTE | ~2020-10-31 | CT_ITS ---
EXAMINATION: CT ABDOMEN AND PELVIS WITH CONTRAST CLINICAL INFORMATION: Nausea, vomiting, poor appetite, left lower quadrant abdominal pain. COMPARISON: Ultrasound abdomen 10/18/2020. CT abdomen 10/18/2020. TECHNIQUE: Multidetector volumetric images were obtained from the superior aspect of the liver through the pubic symphysis following administration 85 mL of Omnipaque 350 intravenous contrast. Sagittal and coronal reformatted images were obtained on the technologist's workstation. Oral contrast: No. This CT examination was performed using dose optimization techniques as appropriate, variously including the following: *Automated exposure control *Adjustment of mA and/or kV according to patient size (this includes techniques or standardized protocols for targeted exams where dose is matched to indication/reason for exam; i.e. extremities or head) *Use of iterative reconstruction technique DLP: 510 mGy-cm FINDINGS: LUNG BASES: Moderate right, small left pleural effusion, slightly increased from previous. Bibasilar atelectasis. Heart is enlarged. No pericardial effusion. Partially imaged spacer wires. LIVER, GALLBLADDER, AND BILIARY TREE: Slightly nodular contour and slightly shrunken appearance of the liver suggesting cirrhosis. No focal lesions demonstrated. Gallbladder is partially distended. There are stones present, with additional high-density material suggesting sludge/echogenic bile. There is mild haziness adjacent to the gallbladder wall, with suggestion of fluid present in this region. PANCREAS: No discrete mass lesion. No acute inflammatory changes. SPLEEN: A few small calcifications are redemonstrated. ADRENAL GLANDS: No adrenal mass. KIDNEYS AND URETERS: Stable small calcifications in the left renal lower pole, which could represent nonobstructing calculi. No suspicious lesions identified. No hydronephrosis. BLADDER: Mild circumferential urinary bladder wall thickening. GASTROINTESTINAL TRACT: Apparent mild wall thickening and pericolonic haziness/inflammatory changes in the cecum and the proximal ascending colon. This could represent colitis. There is moderate stool throughout the large colon otherwise. No additional areas of wall thickening identified. The stomach is nondistended precluding evaluation. No dilated small bowel loops. The appendix has air within it, is of normal caliber, without inflammatory changes immediately subjacent to the appendix. Small ascites, including fluid in the perihepatic region, perisplenic region, bilateral paracolic gutters. ABDOMINAL WALL: There is fluid in the right inguinal canal. Mild subcutaneous edema/anasarca. LYMPH NODES: No lymphadenopathy. VASCULAR: Normal caliber aorta. Atherosclerotic vascular calcification. 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 PELVIC VISCERA: Prostate is enlarged with calcifications. OSSEOUS STRUCTURES: Multilevel degenerative changes in the spine. CT/CT abdomen pelvis w con IMPRESSION: 1. Distended gallbladder containing gallstones, bile/sludge. There is haziness adjacent to gallbladder wall, with some fluid present in this region. Findings raise a possibility of acute cholecystitis. Consider further evaluation with ultrasound. 2. Moderate right and small left pleural effusion, slightly increased from previous. Bibasilar atelectasis. 3. Findings suggest cirrhotic liver. No focal lesions demonstrated. 4. Mild wall thickening and pericolonic inflammatory changes associated with cecum and the proximal ascending colon, which could reflect colitis. 5. Small ascites in the abdomen or pelvis, increased from previous. 6. Enlarged prostate.
--- NOTE | ~2020-10-31 | XR_ITS ---
EXAMINATION: XR CHEST CLINICAL INFORMATION: Dizziness. Poor appetite. Abdominal pain. COMPARISON: Previous chest x-rays most recent 10/21/2020 TECHNIQUE: 2 views of the chest were obtained. FINDINGS: The cardiac silhouette is enlarged. There are left subclavian pacemaker and defibrillator devices that appear unchanged. There is pulmonary venous redistribution, perihilar markings and small bilateral pleural effusions. Findings are suggestive of CHF. There are degenerative changes of the spine. XR/XR chest 2V IMPRESSION: CHF.
--- NOTE | 2020-10-31 10:04 | ECG_ITS ---
Test Reason : DIZZINESS Blood Pressure : / mmHG Vent. Rate : 084 BPM Atrial Rate : 084 BPM P-R Int : 140 ms QRS Dur : 176 ms QT Int : 486 ms P-R-T Axes : 088 -18 -38 degrees QTc Int : 574 ms Atrial-sensed ventricular-paced rhythm Abnormal ECG When compared with ECG of 18-OCT-2020 15:27, Vent. rate has increased BY 14 BPM Referred By: Funmi Duque Electronically Signed By:KELSEY WHARTON MD
--- NOTE | 2020-10-31 10:31 | PC.NURSE ---
Pt presents to ED with c/o low abd pain with urination and dysuria, dizziness, nausea/vomiting and generalized weakness. New pacemaker placement noted to left chest. Pt noted to be at times tachypenic, LS anteriorly clear, sat 96-98% on room air, 02 applied for comfort at 2lpm. Pt is alert/oriented. Skin appears midly jaundiced. Bladder scan for 246, no abd distention noted. IV established and labs obtained
[2020-10-31 10:32] LABS: MANUAL DIFF FLAG NO
[2020-10-31 10:37] LABS: Basophils Percent Auto 0.7 % (0-2); Eosinophils Absolute Auto 0.1 X10*3/uL (0.0-0.4); Eosinophils Percent Auto 1.1 % (0-4); Hematocrit 39.7 % (42-52); Hemoglobin 13.2 g/dl (14.0-18.0); Imm Gran Abs Auto 0.01 X10*3/uL (0.00-0.03); Imm Gran Pct Auto 0.2 % (0.0-0.4); Lymphocytes Absolute Auto 0.8 X10*3/uL (1.2-4.9); Mean Corpuscular HGB Conc 33.2 g/dl (31.0-36.0); Mean Corpuscular Hemoglobin 33.4 pg (27.0-33.0); Mean Corpuscular Volume 100.5 fL (80-98); Monocytes Absolute Auto 0.6 X10*3/uL (0.1-1.2); Monocytes Percent Auto 12.6 % (2-11); Neutrophils Percent Auto 67.4 % (45-73); Platelet Count 141 X10*3/uL (160-400); Red Blood Count 3.95 X10*6/uL (4.60-5.80); Red Cell Distribution Width 19.6 % (11.0-16.0); White Blood Count 4.4 X10*3/uL (4.8-10.8)
[2020-10-31 10:42] LABS: INTERNATIONAL NORM RATIO 1.3 (0.9-1.1); Prothrombin Time 15.2 SEC (10.8-13.0)
[2020-10-31 11:16] LABS: Alanine Aminotransferase 86 U/L (0-40); Albumin Level 3.8 g/dL (3.5-5.0); Alkaline Phosphatase 94 U/L (39-117); Anion Gap 19 (12-20); Aspartate Amino Transferase 35 U/L (5-37); Bilirubin Direct 1.2 mg/dL (0.0-0.5); Bilirubin Total 3.1 mg/dL (0.0-1.0); Blood Urea Nitrogen 18 mg/dL (9-16); Calcium 8.9 mg/dL (8.4-10.2); Carbon Dioxide 25 mmol/L (22-29); Chloride 102 mmol/L (96-108); Creatinine Clr Calc Pharmacy 37.6; Estimated Glomerular Filt Rate 57; Glucose Random 114 mg/dL (60-115); Magnesium 2.6 mg/dL (1.6-2.6); Potassium 3.3 mmol/L (3.3-5.1); Sodium 143 mmol/L (135-145); Total Protein 6.5 g/dL (6.5-8.0)
[2020-10-31 11:20] LABS: Troponin-I High Sensitivity 50.2 ng/L (<3.5-35.0)
[2020-10-31 11:20] LABS: Lactic Acid 2.1 mmol/L (0.5-2.0)
[2020-10-31 11:28] LABS: B Type Natriuretic Peptide 7800 pg/mL (<100)
[2020-10-31 11:48] LABS: Influenza A PCR NEGATIVE (Negative); Influenza B PCR NEGATIVE (Negative); Resp Syncy Virus RNA Qual PCR NEGATIVE (Negative); SARS COV2 PCR INHOUSE NEGATIVE (Negative)
[2020-10-31] MEDS: Furosemide 40 MG/4 ML VIAL IVPUSH (12:09)
[2020-10-31] MEDS: iohexoL 350 MG/ML 100 ML INFUS..BTL IV (12:29)
[2020-10-31 12:30] LABS: Reflex Lactate? Lactic Acid Added
[2020-10-31 14:05] LABS: Appearance Urine CLEAR; Color Urine YELLOW; Glucose Urine UA NEG (NEG); Leukocyte Esterase Urine NEG (NEG); Nitrite Urine NEG (NEG); Urine Blood NEG (NEG); Urine Ketones NEG (NEG); Urine Protein TRACE MG/DL (NEG-TRACE)
[2020-10-31] MEDS: Piperacillin Sodium/Tazobactam 3.375 GM in 0.9 % Sodium Chloride 50 ML IV (14:17)
[2020-10-31] MEDS: 0.9 % Sodium Chloride 500 ML 250 ML IV (14:18)
--- NOTE | 2020-10-31 14:27 | ED_ITS ---
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 He reports he has had a poor appetite with associated nausea/vomiting and generalized dizziness as well. He denies any headaches, changes in vision, chest pain, shortness of breath, dyspnea on exertion, orthopnea, back pain, hematuria, diarrhea, lower extremity edema or calf tenderness. Denies sick contacts or recent travel. Denies any other symptom complaints or concerns at this time. MD elicited complaint: abdominal pain Pertinent past history: myocardial infarction Onset (ago): day(s) (3-5 days) Pain Consistency: constant Location: RLQ and LLQ Severity: moderate Quality: aching Radiation: none Migration to: no migration Exacerbating factors: eating and vomiting Relieving factors: nothing Associated symptoms: nausea, vomiting and constipation Related Data Home Medications Medication Instructions Recorded Confirmed Combivent Respimat 1 puff INHALATION QID 08/06/20 10/27/20 Stiolto Respimat 2 puff INHALATION DAILY 09/01/20 10/27/20 Trulicity 0.75 mg SUBCUT DIOP 09/01/20 10/27/20 aspirin 81 mg PO DAILY 09/01/20 10/27/20 atorvastatin 80 mg PO DAILY 09/01/20 10/27/20 famotidine 20 mg PO BID 09/01/20 10/27/20 polyvinyl alcohol [Artificial 1 drp OPHTHALMIC (EYE) Q4H PRN 09/01/20 10/27/20 Tears (polyvin alc)] ranolazine 500 mg PO BID 09/01/20 10/27/20 cholecalciferol (vitamin D3) 1 cap PO QAM 09/18/20 10/27/20 metoprolol succinate 1 tab PO QAM 10/31/20 Previous Rx's Medication Instructions Recorded furosemide 40 mg PO DAILY #0 tab 10/23/20 Allergies Allergy/AdvReac Type Severity Reaction Status Date / Time No Known Allergies Allergy Unknown NOT Verified 10/27/20 11:52 APPLICABLE Review of Systems Review of Systems Constitutional : No Weight loss, No Fever, No Chills, No Night Sweats, No Fatigue, NoMalaise ENT/Mouth: No ear pain, No sore throat, No Difficulty swallowing Cardiovascular : No Chest Pain, No SOB, No Dyspnea on Exertion, No Orthopnea, NoEdema, No Palpitations Respiratory : No Cough, No Sputum, No Wheezing, No Dyspnea Gastrointestinal : + Nausea, + Vomiting, + abdominal pain, + Constipation, No D iarrhea, No blood streaked emesis, No coffee-ground emesis, No gross hematemesis, No blood streak stool, No gross hematochezia, No Melena Genitourinary : No irregular bleeding, No Dysuria, No Urinary Frequency, No Hematuria,No Urinary Incontinence, No Urgency, No Flank Pain Musculoskeletal : No joint pain, No Myalgias, No Joint Swelling Skin : No Skin Lesions, No rash Neuro : No focal or general Weakness, No Numbness, No Paresthesias, No Loss of Consciousness, + Dizziness, No Headache Psych : No Social Issues, Heme/Lymph: No Bruising, No Bleeding,No Lymphadenopathy Endocrine : No Polyuria, No Polydipsia, No Temperature Intolerance Yes all other systems are reviewed and are negative Physical Exam Vital Signs: Vital Signs: Last Vital Signs Temp 97.9 F 10/31/20 09:36 Pulse 86 10/31/20 14:24 Resp 20 10/31/20 14:24 BP 97/62 10/31/20 14:24 Pulse Ox 98 10/31/20 14:24 Body Mass Index 22.1 Vital signs have been reviewed as normal and appeared to be correct. Blood pressure normal. Heart rate normal. Respiration rate normal. Temperature normal. Oxygen saturation normal. Appearance: Alert. Oriented X3. No acute distress. Head: Normal external exam. Normocephalic. Atraumatic. Able to rotate head bilaterally. Eyes: PERRLA. EOMI. No nystagmus noted. Conjunctiva and sclera normal. Eyelids normal. Corneal reflex normal. ENT: EAC normal. TM's Normal. Hearing normal. Pharynx normal. Uvula midline. tongue midline. Moist mucous membranes. No trismus noted. No drooling noted. No muffled voice noted. No nystagmus noted. Neck: Normal inspection. Neck supple. FROM. No adenopathy. Trachea midline. Thyroid Normal. No meningeal signs. No neck mass noted. CVS: Normal heart rate and rhythm. Heart sound normal. No murmurs noted. Pulses normal throughout. Respiratory: No respiratory distress. Painless inspiration. Breath sounds normal. No wheezes/rales/rhonchi noted. Chest nontender. No accessory muscle usage noted or decreased air movement noted. Abdomen: Soft and moderate tenderness to palpation diffusely throughout the entire abdomen no point tenderness is noted. Nondistended. No guarding. No rigidity. Bowel sounds normal in all 4 quadrants. No distention noted. No organomegaly noted. No visible injury noted. No rebound tenderness. Negative Rovsing sign. Negative obturator's sign. Negative psoas sign. Negative Hodge sign. Back: No CVA tenderness. Full range of motion noted. Skin: Skin warm and dry. Normal skin color. Normal skin turgor. No rash es/lesions/lacerations noted. Extremities: Positive bilateral lower extremity edema. No calf tenderness noted. Extremities exhibit normal range of motion. Extremities nontender. Able to shrug shoulders bilaterally and keep up against resistance. Neuro: Oriented X 3. No motor deficit. No sensory deficit. Reflexes normal. Moving all extremities. No focal motor deficits. Cranial nerves II-XI intact bilaterally. Facial strength normal. Normal cognition. Speech normal. Gait normal. Strength 5/5 throughout. No pronator drift. No tremor noted. No fasciculations noted. No rigidity noted. Muscle tone normal throughout. No asterixis noted. Cbvbql-[id number]-tomn test normal. Heel to sanchez test normal. Tandem gait normal. Does not sway with eyes open. Romberg test negative. Rapid alternating movement upper extremity normal. Rapid alternating movement lower extremity normal. Hand drop from overhead Misses face. NIHSS score 0. NIH Stroke Scale Internal: Initial- Upon Arrival Time: 10:00 Level of Consciousness: Alert Level of Consciousness Questions: Answers both questions correctly Level of Consciousness Commands: Performs both tasks correctly Best Gaze: Normal Visual: No visual loss Facial Palsy: Normal Motor Arm (Right): No drift Motor Arm (Left): No drift Motor Leg (Right): No drift Motor Leg (Left): No drift Limb Ataxia: Absent Sensory: Normal Best Language: No aphasia Dysarthia: Normal Extinction and Inattention: No abnormality Score: 0 Course Course Course Narrative: 13:50am - labs return patient has a white blood cell count at 4.400 - mild baseline anemia improved when compared to prior. - BUN 18 - total bilirubin 3.1 patient has the elevated baseline total bilirubin this is mildly increased when compared to prior - direct bilirubin 1.2 - ALT 86 - troponin 50.2 - BNP 7800 - UA within normal limits no evidence of UTI - COVID/RSV/flu negative. - lactic acid of 2.1 - therefore at this time the CT scan returned and revealed possibly acute cholecystitis therefore will place the patient on antibiotics Zosyn by IV will give the patient some fluid although patient is in acute on chronic CHF therefore will also give 40 mg of IV Lasix - will consult with General surgery for his possible acute cholecystitis will obtain a ultrasound versus HIDA scan with General surgery consult - plan will be to admit for possibly acute cholecystitis and if patient does not have acute cholecystitis will admit for CHF Reevaluation(s) Reevaluation #1: - patient just returned back from HIDA scan and they reported that they need to return to complete the imaging for the HIDA in a few hours although patient will not tolerate HIDA scan completion therefore patient will be admitted to Dr. Spicer at this time. Time: 16:23 MDM - Abdominal Pain MDM Narrative Medical decision making narrative: 10am - 85-year-old male presenting to the ED with complaints of lower abdominal pain with associated nausea/vomiting unable to void and constipation over the past 3- 5 days with associated generalized weakness/dizziness and poor appetite. On exam patient is alert and oriented x3. Not in any acute distress. No focal neuro deficits are noted. No tPA is indicated at this time as patient has non disabling symptoms and symptoms started 3-5 days ago and has been constant. Lungs clear to auscultation. CV RRR. Abdomen is soft and nontender. No CVA tenderness is noted. Patient with bilateral lower extremity edema. No calf tenderness noted. +2 distal pedal pulses. - Concern for diverticulitis vs appendicitis vs cholecystitis. Concern for ACS vs CHF vs PE vs PNA Plan: Labs, chest x-ray, EKG, CT scan of brain without contrast, CT scan of abdomen and pelvis with IV contrast, blood cultures, lactic acid then re- evaluate. Medical Records Attestation: I reviewed the patient's medical records. Lab Data Attestation: I reviewed the patient's lab results. Result diagrams: 10/31/20 10:27 10/31/20 10:26 Labs: Lab Results 10/31/20 10/31/20 10/31/20 Range/Units 10:26 10:26 10:26 WBC (4.8-10.8) X10*3/uL RBC (4.60-5.80) X10*6/uL Hgb (14.0-18.0) g/dl Hct (42-52) % MCV (80-98) fL MCH (27.0-33.0) pg MCHC (31.0-36.0) g/dl RDW (11.0-16.0) % Plt Count (160-400) X10*3/uL MPV (9.4-12.4) fL Immature Gran % (Auto) (0.0-0.4) % Neut % (Auto) (45-73) % Lymph % (Auto) (20-40) % [place] % (Auto) (2-11) % Eos % (Auto) (0-4) % Baso % (Auto) (0-2) % Lymph # (Auto) (1.2-4.9) X10*3/uL [place] # (Auto) (0.1-1.2) X10*3/uL Eos # (Auto) (0.0-0.4) X10*3/uL Baso # (Auto) (0.0-0.2) X10*3/uL Abs Immat Gran (auto) (0.00-0.03) X10*3/uL Absolute Neuts (auto) (2.0-8.3) X10*3/uL Absolute Nucleated RBC (0.0-0.012) X10*3/uL Nucleated RBC % (auto) (0.0-0.2) /100WBC PT (10.8-13.0) SEC INR (0.9-1.1) Sodium 143 (135-145) mmol/L Potassium 3.3 D (3.3-5.1) mmol/L Chloride 102 (96-108) mmol/L Carbon Dioxide 25 (22-29) mmol/L Anion Gap 19 (12-20) BUN 18 H (9-16) mg/dL Creatinine 1.21 (0.5-1.4) mg/dL Estim Creat Clear Calc 37.6 Estimated GFR 57 Random Glucose 114 (60-115) mg/dL Lactic Acid (0.5-2.0) mmol/L Lactic Acid Fup @ 2Hr (0.5-2.0) mmol/L Calcium 8.9 (8.4-10.2) mg/dL Magnesium 2.6 (1.6-2.6) mg/dL Total Bilirubin 3.1 H (0.0-1.0) mg/dL Direct Bilirubin 1.2 H (0.0-0.5) mg/dL AST 35 D (5-37) U/L ALT 86 H (0-40) U/L Alkaline Phosphatase 94 (39-117) U/L Troponin I High Sens 50.2 H (<3.5-35.0) ng/L B-Natriuretic Peptide 7800 H (<100) pg/mL Total Protein 6.5 (6.5-8.0) g/dL Albumin 3.8 (3.5-5.0) g/dL Urine Color Urine Appearance Urine pH (5.0-8.0) Ur Specific [place] (1.005-1.025) Urine Protein (NEG-TRACE) MG/DL Urine Glucose (UA) (NEG) MG/DL Urine Ketones (NEG) MG/DL Urine Blood (NEG) Urine Nitrite (NEG) Ur Leukocyte Esterase (NEG) Coronavirus (PCR) NEGATIVE (Negative) Influenza Type A (PCR) NEGATIVE (Negative) Influenza Type B (PCR) NEGATIVE (Negative) RSV RNA Qual (PCR) NEGATIVE (Negative) 10/31/20 10/31/20 10/31/20 Range/Units 10:27 10:27 10:27 WBC 4.4 L (4.8-10.8) X10*3/uL RBC 3.95 L (4.60-5.80) X10*6/uL Hgb 13.2 L (14.0-18.0) g/dl Hct 39.7 L (42-52) % MCV 100.5 H (80-98) fL MCH 33.4 H (27.0-33.0) pg MCHC 33.2 (31.0-36.0) g/dl RDW 19.6 H (11.0-16.0) % Plt Count 141 L (160-400) X10*3/uL MPV 12.0 (9.4-12.4) fL Immature Gran % (Auto) 0.2 (0.0-0.4) % Neut % (Auto) 67.4 (45-73) % Lymph % (Auto) 18.0 L (20-40) % [place] % (Auto) 12.6 H (2-11) % Eos % (Auto) 1.1 (0-4) % Baso % (Auto) 0.7 (0-2) % Lymph # (Auto) 0.8 L (1.2-4.9) X10*3/uL [place] # (Auto) 0.6 (0.1-1.2) X10*3/uL Eos # (Auto) 0.1 (0.0-0.4) X10*3/uL Baso # (Auto) 0.0 (0.0-0.2) X10*3/uL Abs Immat Gran (auto) 0.01 (0.00-0.03) X10*3/uL Absolute Neuts (auto) 3.0 (2.0-8.3) X10*3/uL Absolute Nucleated RBC 0.000 (0.0-0.012) X10*3/uL Nucleated RBC % (auto) 0.0 (0.0-0.2) /100WBC PT 15.2 H (10.8-13.0) SEC INR 1.3 H (0.9-1.1) Sodium Cancelled (135-145) mmol/L Potassium Cancelled (3.3-5.1) mmol/L Chloride Cancelled (96-108) mmol/L Carbon Dioxide Cancelled (22-29) mmol/L Anion Gap Cancelled (12-20) BUN Cancelled (9-16) mg/dL Creatinine Cancelled (0.5-1.4) mg/dL Estim Creat Clear Calc Cancelled Estimated GFR Cancelled Random Glucose Cancelled (60-115) mg/dL Lactic Acid (0.5-2.0) mmol/L Lactic Acid Fup @ 2Hr (0.5-2.0) mmol/L Calcium Cancelled (8.4-10.2) mg/dL Magnesium (1.6-2.6) mg/dL Total Bilirubin Cancelled (0.0-1.0) mg/dL Direct Bilirubin (0.0-0.5) mg/dL AST Cancelled (5-37) U/L ALT Cancelled (0-40) U/L Alkaline Phosphatase Cancelled (39-117) U/L Troponin I High Sens (<3.5-35.0) ng/L B-Natriuretic Peptide (<100) pg/mL Total Protein Cancelled (6.5-8.0) g/dL Albumin Cancelled (3.5-5.0) g/dL Urine Color Urine Appearance Urine pH (5.0-8.0) Ur Specific [place] (1.005-1.025) Urine Protein (NEG-TRACE) MG/DL Urine Glucose (UA) (NEG) MG/DL Urine Ketones (NEG) MG/DL Urine Blood (NEG) Urine Nitrite (NEG) Ur Leukocyte Esterase (NEG) Coronavirus (PCR) (Negative) Influenza Type A (PCR) (Negative) Influenza Type B (PCR) (Negative) RSV RNA Qual (PCR) (Negative) 10/31/20 10/31/20 10/31/20 Range/Units 10:28 13:49 13:49 WBC (4.8-10.8) X10*3/uL RBC (4.60-5.80) X10*6/uL Hgb (14.0-18.0) g/dl Hct (42-52) % MCV (80-98) fL MCH (27.0-33.0) pg MCHC (31.0-36.0) g/dl RDW (11.0-16.0) % Plt Count (160-400) X10*3/uL MPV (9.4-12.4) fL Immature Gran % (Auto) (0.0-0.4) % Neut % (Auto) (45-73) % Lymph % (Auto) (20-40) % [place] % (Auto) (2-11) % Eos % (Auto) (0-4) % Baso % (Auto) (0-2) % Lymph # (Auto) (1.2-4.9) X10*3/uL [place] # (Auto) (0.1-1.2) X10*3/uL Eos # (Auto) (0.0-0.4) X10*3/uL Baso # (Auto) (0.0-0.2) X10*3/uL Abs Immat Gran (auto) (0.00-0.03) X10*3/uL Absolute Neuts (auto) (2.0-8.3) X10*3/uL Absolute Nucleated RBC (0.0-0.012) X10*3/uL Nucleated RBC % (auto) (0.0-0.2) /100WBC PT (10.8-13.0) SEC INR (0.9-1.1) Sodium (135-145) mmol/L Potassium (3.3-5.1) mmol/L Chloride (96-108) mmol/L Carbon Dioxide (22-29) mmol/L Anion Gap (12-20) BUN (9-16) mg/dL Creatinine (0.5-1.4) mg/dL Estim Creat Clear Calc Estimated GFR Random Glucose (60-115) mg/dL Lactic Acid 2.1 H* (0.5-2.0) mmol/L Lactic Acid Fup @ 2Hr 2.1 H* (0.5-2.0) mmol/L Calcium (8.4-10.2) mg/dL Magnesium (1.6-2.6) mg/dL Total Bilirubin (0.0-1.0) mg/dL Direct Bilirubin (0.0-0.5) mg/dL AST (5-37) U/L ALT (0-40) U/L Alkaline Phosphatase (39-117) U/L Troponin I High Sens 49.0 H (<3.5-35.0) ng/L B-Natriuretic Peptide (<100) pg/mL Total Protein (6.5-8.0) g/dL Albumin (3.5-5.0) g/dL Urine Color Urine Appearance Urine pH (5.0-8.0) Ur Specific [place] (1.005-1.025) Urine Protein (NEG-TRACE) MG/DL Urine Glucose (UA) (NEG) MG/DL Urine Ketones (NEG) MG/DL Urine Blood (NEG) Urine Nitrite (NEG) Ur Leukocyte Esterase (NEG) Coronavirus (PCR) (Negative) Influenza Type A (PCR) (Negative) Influenza Type B (PCR) (Negative) RSV RNA Qual (PCR) (Negative) 10/31/20 Range/Units 13:54 WBC (4.8-10.8) X10*3/uL RBC (4.60-5.80) X10*6/uL Hgb (14.0-18.0) g/dl Hct (42-52) % MCV (80-98) fL MCH (27.0-33.0) pg MCHC (31.0-36.0) g/dl RDW (11.0-16.0) % Plt Count (160-400) X10*3/uL MPV (9.4-12.4) fL Immature Gran % (Auto) (0.0-0.4) % Neut % (Auto) (45-73) % Lymph % (Auto) (20-40) % [place] % (Auto) (2-11) % Eos % (Auto) (0-4) % Baso % (Auto) (0-2) % Lymph # (Auto) (1.2-4.9) X10*3/uL [place] # (Auto) (0.1-1.2) X10*3/uL Eos # (Auto) (0.0-0.4) X10*3/uL Baso # (Auto) (0.0-0.2) X10*3/uL Abs Immat Gran (auto) (0.00-0.03) X10*3/uL Absolute Neuts (auto) (2.0-8.3) X10*3/uL Absolute Nucleated RBC (0.0-0.012) X10*3/uL Nucleated RBC % (auto) (0.0-0.2) /100WBC PT (10.8-13.0) SEC INR (0.9-1.1) Sodium (135-145) mmol/L Potassium (3.3-5.1) mmol/L Chloride (96-108) mmol/L Carbon Dioxide (22-29) mmol/L Anion Gap (12-20) BUN (9-16) mg/dL Creatinine (0.5-1.4) mg/dL Estim Creat Clear Calc Estimated GFR Random Glucose (60-115) mg/dL Lactic Acid (0.5-2.0) mmol/L Lactic Acid Fup @ 2Hr (0.5-2.0) mmol/L Calcium (8.4-10.2) mg/dL Magnesium (1.6-2.6) mg/dL Total Bilirubin (0.0-1.0) mg/dL Direct Bilirubin (0.0-0.5) mg/dL AST (5-37) U/L ALT (0-40) U/L Alkaline Phosphatase (39-117) U/L Troponin I High Sens (<3.5-35.0) ng/L B-Natriuretic Peptide (<100) pg/mL Total Protein (6.5-8.0) g/dL Albumin (3.5-5.0) g/dL Urine Color YELLOW Urine Appearance CLEAR Urine pH 6.0 (5.0-8.0) Ur Specific [place] 1.010 (1.005-1.025) Urine Protein TRACE (NEG-TRACE) MG/DL Urine Glucose (UA) NEG (NEG) MG/DL Urine Ketones NEG (NEG) MG/DL Urine Blood NEG (NEG) Urine Nitrite NEG (NEG) Ur Leukocyte Esterase NEG (NEG) Coronavirus (PCR) (Negative) Influenza Type A (PCR) (Negative) Influenza Type B (PCR) (Negative) RSV RNA Qual (PCR) (Negative) Imaging Data Chest x-ray: Attestation: I personally reviewed and interpreted this imaging study as follows: Radiologist's impression: FINDINGS: The cardiac silhouette is enlarged. There are left subclavian pacemaker and defibrillator devices that appear unchanged. There is pulmonary venous redistribution, perihilar markings and small bilateral pleural effusions. Findings are suggestive of CHF. There are degenerative changes of the spine. XR/XR chest 2V IMPRESSION: CHF. CT scan of abdomen pelvis with IV contrast: Attestation: I personally reviewed and interpreted this imaging study as follows: Radiologist's impression: FINDINGS: LUNG BASES: Moderate right, small left pleural effusion, slightly increased from previous. Bibasilar atelectasis. Heart is enlarged. No pericardial effusion. Partially imaged spacer wires. LIVER, GALLBLADDER, AND BILIARY TREE: Slightly nodular contour and slightly shrunken appearance of the liver suggesting cirrhosis. No focal lesions demonstrated. Gallbladder is partially distended. There are stones present, with additional high-density material suggesting sludge/echogenic bile. There is mild haziness adjacent to the gallbladder wall, with suggestion of fluid present in this region. PANCREAS: No discrete mass lesion. No acute inflammatory changes. SPLEEN: A few small calcifications are redemonstrated. ADRENAL GLANDS: No adrenal mass. KIDNEYS AND URETERS: Stable small calcifications in the left renal lower pole, which could represent nonobstructing calculi. No suspicious lesions identified. No hydronephrosis. BLADDER: Mild circumferential urinary bladder wall thickening. GASTROINTESTINAL TRACT: Apparent mild wall thickening and pericolonic haziness/inflammatory changes in the cecum and the proximal ascending colon. This could represent colitis. There is moderate stool throughout the large colon otherwise. No additional areas of wall thickening identified. The stomach is nondistended precluding evaluation. No dilated small bowel loops. The appendix has air within it, is of normal caliber, without inflammatory changes immediately subjacent to the appendix. Small ascites, including fluid in the perihepatic region, perisplenic region, bilateral paracolic gutters. ABDOMINAL WALL: There is fluid in the right inguinal canal. Mild subcutaneous edema/anasarca. LYMPH NODES: No lymphadenopathy. VASCULAR: Normal caliber aorta. Atherosclerotic vascular calcification. 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 PELVIC VISCERA: Prostate is enlarged with calcifications. OSSEOUS STRUCTURES: Multilevel degenerative changes in the spine. CT/CT abdomen pelvis w con IMPRESSION: 1. Distended gallbladder containing gallstones, bile/sludge. There is haziness adjacent to gallbladder wall, with some fluid present in this region. Findings raise a possibility of acute cholecystitis. Consider further evaluation with ultrasound. 2. Moderate right and small left pleural effusion, slightly increased from previous. Bibasilar atelectasis. 3. Findings suggest cirrhotic liver. No focal lesions demonstrated. 4. Mild wall thickening and pericolonic inflammatory changes associated with cecum and the proximal ascending colon, which could reflect colitis. 5. Small ascites in the abdomen or pelvis, increased from previous. 6. Enlarged prostate. CT scan of brain without contrast: Attestation: I personally reviewed and interpreted this imaging study as follows: Radiologist's impression: FINDINGS: There is no evidence of acute intracranial hemorrhage. 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 No evidence of acute territorial infarction. No abnormal mass effect or midline shift is seen. Lester to white matter differentiation is well preserved. No extra-axial fluid collections are identified. The ventricles are normal in size. Calcifications in bilateral basal ganglia. The osseous structures and soft tissues are normal. The mastoid air cells and visualized portions of the paranasal sinuses are well aerated. CT/CT head/brain wo con IMPRESSION: No CT evidence of acute intracranial hemorrhage or acute territorial infarction. 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 ECG Data Attestation: I personally reviewed and interpreted this ECG as follows: ECG interpretation date: 10/31/20 ECG interpretation time: 10:31 Interpretation: Atrial sensed ventricular paced rhythm with ventricular rate of 84 with nonspecific changes. No acute ischemic changes noted. Similar compared to prior EKG 10/18/2020. Critical Care Time Critical Care Time Critical Care Time: Yes Total Critical Care Time: 60 Attestation: I personally attest to this time spent taking care of the patient Discharge Plan Discharge Clinical Impression: CHF (congestive heart failure), Cirrhosis, Transaminitis Patient Disposition: Admitted As Inpatient COUNTS INCLUDE 234 BEDS AT THE [facility] Past Medical History Attestation statement: The following information was validated with the patient. Medical History Atherosclerotic cardiovascular disease Chronic HFrEF (heart failure with reduced ejection fraction) Cirrhosis COPD (chronic obstructive pulmonary disease) COPD (chronic obstructive pulmonary disease) Diabetes mellitus GERD (gastroesophageal reflux disease) History of myocardial infarction Hyperlipidemia Ischemic cardiomyopathy LBBB (left bundle branch block) Non-rheumatic mitral regurgitation NSVT (nonsustained ventricular tachycardia) Pulmonary hypertension Surgical History Hx of CABG S/P CABG x 3 Family History Family History Father No problems noted. Mother No problems noted. Social History Social History Household Members: None Housing: Apartment Alcohol intake: never Smoking Status: Former smoker Tobacco Type: Cigarette Second Hand Smoke Exposure: No Use of substances other than those prescribed or required for medical reasons: No Advance Directives: No Advance Directives Information Provided: No service: No Current occupational status: retired
[2020-10-31 14:32] LABS: ~Lactic Acid-LAB USE ONLY 2.1 mmol/L (0.5-2.0)
[2020-10-31 15:55] LABS: Reflex Lactate? 2 Y
--- NOTE | 2020-10-31 16:42 | PM.IMHP ---
History of Present Illness Date of Service: 10/31/20 Chief Complaint: abd pain, sob 85M with pmh of ischemic cardiomyopathy with EF 15%, pulmonary htn, severe TR and MR. with frequent readmissions for CHF, most recently discharged 10/23/20 after being diuresed for chf and worked up for concern of acute cholecystitis, although, HIDA ended up being negative. now presented with abdominal pain, anorexia, n/v for 3-5 days with worsening shortness of breath and increased weakness. denies fever, chills. in ED found to have higher bnp than previous, CT showed gallstones and GB wall thickening. surgery was consulted and recommended repeatiing HIDA, this was not fully completed due to shortness of breath, but initial images were able to show gallbladder making acute cholecystitis less likely. cxr revealed chf. 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 Mother No problems noted. Family history: reviewed and not pertinent Surgical History Hx of CABG S/P CABG x 3 Social History Household Members: None Housing: Apartment Alcohol intake: never Smoking Status: Former smoker Tobacco Type: Cigarette Second Hand Smoke Exposure: No Use of substances other than those prescribed or required for medical reasons: No Advance Directives: No Advance Directives Information Provided: No service: No Current occupational status: retired Meds Allergies Allergy/AdvReac Type Severity Reaction Status Date / Time No Known Allergies Allergy Unknown NOT Verified 10/27/20 11:52 APPLICABLE Active Medications: Current Medications Generic Name Dose Route Start Last Admin Trade Name Freq PRN Reason Stop Dose Admin Pharmacy Consult 1 each 10/31/20 14:37 Consult Rx Perform Med Rec MISCELLANE ONCE PRN Consult order Home Medications Medication Instructions Recorded Confirmed Last Taken Type Combivent Respimat 1 puff INHALATION QID 08/06/20 10/27/20 08/06/20 History Stiolto Respimat 2 puff INHALATION DAILY 09/01/20 10/27/20 Unknown History Trulicity 0.75 mg SUBCUT DIOP 09/01/20 10/27/20 Unknown History aspirin 81 mg PO DAILY 09/01/20 10/27/20 Unknown History atorvastatin 80 mg PO DAILY 09/01/20 10/27/20 Unknown History famotidine 20 mg PO BID 09/01/20 10/27/20 Unknown History polyvinyl alcohol [Artificial 1 drp OPHTHALMIC (EYE) Q4H PRN 09/01/20 10/27/20 Unknown History Tears (polyvin alc)] ranolazine 500 mg PO BID 09/01/20 10/27/20 Unknown History cholecalciferol (vitamin D3) 1 cap PO QAM 09/18/20 10/27/20 Unknown History metoprolol succinate 1 tab PO QAM 10/31/20 Unknown History Physical Exam Vital Signs and Narrative: Vital Signs: Last Vital Signs Temp 97.9 F 10/31/20 09:36 Pulse 86 10/31/20 14:24 Resp 20 10/31/20 14:24 BP 97/62 10/31/20 14:24 Pulse Ox 98 10/31/20 14:24 Body Mass Index 22.1 General: dyspneic, ill appearing HEENT: atraumatic Neck: normal to visual inspection CVS: S1, S2, RRR Resp: diminished Chest: non tender GI: soft, non tender, non distended : no CVA tenderness Skin: juandice Extremities: no edema Neuro: Oriented X3, grossly weak Psych: cooperative Results Labs CBC and Chem 7: 10/31/20 10:27 04/30/21 10:26 Labs: Laboratory Results - last 24 hr 10/31/20 10/31/20 10/31/20 10:26 10:26 10:26 MCV MCH MCHC RDW Plt Count MPV Immature Gran % (Auto) Neut % (Auto) Lymph % (Auto) [place] % (Auto) Eos % (Auto) Baso % (Auto) Lymph # (Auto) [place] # (Auto) Eos # (Auto) Baso # (Auto) Abs Immat Gran (auto) Absolute Neuts (auto) Absolute Nucleated RBC Nucleated RBC % (auto) PT INR Anion Gap 19 Estim Creat Clear Calc 37.6 Estimated GFR 57 Random Glucose 114 Lactic Acid Lactic Acid Fup @ 2Hr Calcium 8.9 Magnesium 2.6 Total Bilirubin 3.1 H Direct Bilirubin 1.2 H AST 35 D ALT 86 H Alkaline Phosphatase 94 Troponin I High Sens 50.2 H B-Natriuretic Peptide 7800 H Total Protein 6.5 Albumin 3.8 Urine Color Urine Appearance Urine pH Ur Specific [place] Urine Protein Urine Glucose (UA) Urine Ketones Urine Blood Urine Nitrite Ur Leukocyte Esterase Coronavirus (PCR) NEGATIVE Influenza Type A (PCR) NEGATIVE Influenza Type B (PCR) NEGATIVE RSV RNA Qual (PCR) NEGATIVE 10/31/20 10/31/20 10/31/20 10:27 10:27 10:27 MCV 100.5 H MCH 33.4 H MCHC 33.2 RDW 19.6 H Plt Count 141 L MPV 12.0 Immature Gran % (Auto) 0.2 Neut % (Auto) 67.4 Lymph % (Auto) 18.0 L [place] % (Auto) 12.6 H Eos % (Auto) 1.1 Baso % (Auto) 0.7 Lymph # (Auto) 0.8 L [place] # (Auto) 0.6 Eos # (Auto) 0.1 Baso # (Auto) 0.0 Abs Immat Gran (auto) 0.01 Absolute Neuts (auto) 3.0 Absolute Nucleated RBC 0.000 Nucleated RBC % (auto) 0.0 PT 15.2 H INR 1.3 H Anion Gap Cancelled Estim Creat Clear Calc Cancelled Estimated GFR Cancelled Random Glucose Cancelled Lactic Acid Lactic Acid Fup @ 2Hr Calcium Cancelled Magnesium Total Bilirubin Cancelled Direct Bilirubin AST Cancelled ALT Cancelled Alkaline Phosphatase Cancelled Troponin I High Sens B-Natriuretic Peptide Total Protein Cancelled Albumin Cancelled Urine Color Urine Appearance Urine pH Ur Specific [place] Urine Protein Urine Glucose (UA) Urine Ketones Urine Blood Urine Nitrite Ur Leukocyte Esterase Coronavirus (PCR) Influenza Type A (PCR) Influenza Type B (PCR) RSV RNA Qual (PCR) 10/31/20 10/31/20 10/31/20 10:28 13:49 13:49 MCV MCH MCHC RDW Plt Count MPV Immature Gran % (Auto) Neut % (Auto) Lymph % (Auto) [place] % (Auto) Eos % (Auto) Baso % (Auto) Lymph # (Auto) [place] # (Auto) Eos # (Auto) Baso # (Auto) Abs Immat Gran (auto) Absolute Neuts (auto) Absolute Nucleated RBC Nucleated RBC % (auto) PT INR Anion Gap Estim Creat Clear Calc Estimated GFR Random Glucose Lactic Acid 2.1 H* Lactic Acid Fup @ 2Hr 2.1 H* Calcium Magnesium Total Bilirubin Direct Bilirubin AST ALT Alkaline Phosphatase Troponin I High Sens 49.0 H B-Natriuretic Peptide Total Protein Albumin Urine Color Urine Appearance Urine pH Ur Specific [place] Urine Protein Urine Glucose (UA) Urine Ketones Urine Blood Urine Nitrite Ur Leukocyte Esterase Coronavirus (PCR) Influenza Type A (PCR) Influenza Type B (PCR) RSV RNA Qual (PCR) 10/31/20 13:54 MCV MCH MCHC RDW Plt Count MPV Immature Gran % (Auto) Neut % (Auto) Lymph % (Auto) [place] % (Auto) Eos % (Auto) Baso % (Auto) Lymph # (Auto) [place] # (Auto) Eos # (Auto) Baso # (Auto) Abs Immat Gran (auto) Absolute Neuts (auto) Absolute Nucleated RBC Nucleated RBC % (auto) PT INR Anion Gap Estim Creat Clear Calc Estimated GFR Random Glucose Lactic Acid Lactic Acid Fup @ 2Hr Calcium Magnesium Total Bilirubin Direct Bilirubin AST ALT Alkaline Phosphatase Troponin I High Sens B-Natriuretic Peptide Total Protein Albumin Urine Color YELLOW Urine Appearance CLEAR Urine pH 6.0 Ur Specific [place] 1.010 Urine Protein TRACE Urine Glucose (UA) NEG Urine Ketones NEG Urine Blood NEG Urine Nitrite NEG Ur Leukocyte Esterase NEG Coronavirus (PCR) Influenza Type A (PCR) Influenza Type B (PCR) RSV RNA Qual (PCR) Imaging Radiologist's Impressions: Impressions Abdomen/Pelvis CT 10/31/20 10:05 IMPRESSION: 1. Distended gallbladder containing gallstones, bile/sludge. There is haziness adjacent to gallbladder wall, with some fluid present in this region. Findings raise a possibility of acute cholecystitis. Consider further evaluation with ultrasound. 2. Moderate right and small left pleural effusion, slightly increased from previous. Bibasilar atelectasis. 3. Findings suggest cirrhotic liver. No focal lesions demonstrated. 4. Mild wall thickening and pericolonic inflammatory changes associated with cecum and the proximal ascending colon, which could reflect colitis. 5. Small ascites in the abdomen or pelvis, increased from previous. 6. Enlarged prostate. Chest X-Ray 10/31/20 10:05 IMPRESSION: CHF. Head CT 10/31/20 10:05 IMPRESSION: No CT evidence of acute intracranial hemorrhage or acute territorial infarction. 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 Assessment and Plan (1) CHF (congestive heart failure): Status: Acute 85M presented with abd pain and sob chf with reduced EF, ischemic frequent readmissions, patient overall is failing and prognosis is poor will diurese with lasix infusion cardio eval ?acute cholecystitis likely not acute cholecystitis and more congestion from chf now with cardiogenic cirrhosis DM in[place] sliding scale
--- NOTE | 2020-10-31 17:07 | P.CONGS_ITS ---
History of Present Illness Consult details Consult date: 10/31/20 Reason for consult: gallstones Narrative: Is an 85-year-old gentleman who presented to the emergency department earlier today with complaints of inability to urinate associated with lower abdominal pain and nausea. He was discharged from [facility] after treatment for CHF, acute kidney injury and possible acute cholecystitis. He has a history of cirrhosis and ischemic cardiomyopathy. CT scan demonstrated thickening of the gallbladder wall, but HIDA scan demonstrated visualization of the gallbladder and was not consistent with acute cholecystitis. He reports upper abdominal pain and some chest discomfort and shortness of breath. He has been able to pass his urine since admission to the emergency department. A CT scan of the abdomen and pelvis was obtained and again raise the question of acute cholecystitis: Distended gallbladder containing gallstones, bile/sludge. There is haziness adjacent to gallbladder wall, with some fluid present in this region. Findings raise a possibility of acute cholecystitis. Consider further evaluation with ultrasound. HIDA scan was initiated but could not be completed. Official interpretation is pending. I have reviewed the films. The gallbladder appears to be visualized, not consistent with acute cholecystitis. Review of Systems Constitutional: Constitutional: Denies fever(s) and Reports lethargy Cardiovascular: Cardiovascular: Reports chest pain (Mild substernal), Reports leg edema and Reports dyspnea Respiratory: Respiratory: Reports dyspnea Gastrointestinal: Gastrointestinal: Reports as per [facility] Past Medical History Medical History Atherosclerotic cardiovascular disease Chronic HFrEF (heart failure with reduced ejection fraction) Cirrhosis COPD (chronic obstructive pulmonary disease) COPD (chronic obstructive pulmonary disease) Diabetes mellitus GERD (gastroesophageal reflux disease) History of myocardial infarction Hyperlipidemia Ischemic cardiomyopathy LBBB (left bundle branch block) Non-rheumatic mitral regurgitation NSVT (nonsustained ventricular tachycardia) Pulmonary hypertension Family History Family History Father No problems noted. Mother No problems noted. Family history: reviewed and not pertinent Surgical History Surgical History Hx of CABG S/P CABG x 3 Social History Social History Household Members: None Housing: Apartment Alcohol intake: never Smoking Status: Former smoker Tobacco Type: Cigarette Second Hand Smoke Exposure: No Use of substances other than those prescribed or required for medical reasons: No Advance Directives: No Advance Directives Information Provided: No service: No Current occupational status: retired [employer] Allergies Allergy/AdvReac Type Severity Reaction Status Date / Time No Known Allergies Allergy Unknown NOT Verified 10/27/20 11:52 APPLICABLE Active Medications: Current Medications Generic Name Dose Route Start Last Admin Trade Name Susan PRN Reason Stop Dose Admin Pharmacy Consult 1 each 10/31/20 14:37 Consult Rx Perform Med Rec MISCELLANE ONCE PRN Consult order Home Medications Medication Instructions Recorded Confirmed Last Taken Type Combivent Respimat 1 puff INHALATION QID 08/06/20 10/27/20 08/06/20 History Trulicity 0.75 mg SUBCUT DIOP 09/01/20 10/27/20 Unknown History aspirin 81 mg PO DAILY 09/01/20 10/27/20 Unknown History atorvastatin 80 mg PO DAILY 09/01/20 10/27/20 Unknown History famotidine 20 mg PO BID 09/01/20 10/27/20 Unknown History polyvinyl alcohol [Artificial 1 drp OPHTHALMIC (EYE) Q4H PRN 09/01/20 10/27/20 Unknown History Tears (polyvin alc)] ranolazine 500 mg PO BID 09/01/20 10/27/20 Unknown History furosemide 40 mg PO BID@08,12 10/31/20 10/31/20 Unknown History Physical Exam Vital Signs: Vital Signs: Last Vital Signs Temp 97.9 F 10/31/20 09:36 Pulse 86 10/31/20 14:24 Resp 20 10/31/20 14:24 BP 97/62 10/31/20 14:24 Pulse Ox 98 10/31/20 14:24 Body Mass Index 22.1 Const: General: cooperative and alert HENMT: Head: Yes normocephalic and Yes atraumatic Resp: Auscultation: crackles (Right base) and rhonchi left lower Cardio: Rate: regular rate Rhythm: regular rhythm GI: Other: Soft, nondistended, tender right upper quadrant along liver margin extending into medial aspect of left upper quadrant, no palpable masses Rectal Exam - Male: Yes deferred Extrem: Other: Warm, +1 pitting edema bilateral lower legs Results Labs Result diagrams: 10/31/20 10:27 10/31/20 10:26 Labs: Abnormal lab results 10/31/20 10/31/20 10/31/20 Range/Units 10: 10:26 10:27 WBC 4.4 L (4.8-10.8) X10*3/uL RBC 3.95 L (4.60-5.80) X10*6/uL Hgb 13.2 L (14.0-18.0) g/dl Hct 39.7 L (42-52) % MCV 100.5 H (80-98) fL MCH 33.4 H (27.0-33.0) pg RDW 19.6 H (11.0-16.0) % Plt Count 141 L (160-400) X10*3/uL Lymph % (Auto) 18.0 L (20-40) % [place] % (Auto) 12.6 H (2-11) % Lymph # (Auto) 0.8 L (1.2-4.9) X10*3/uL PT (10.8-13.0) SEC INR (0.9-1.1) BUN 18 H (9-16) mg/dL Lactic Acid (0.5-2.0) mmol/L Lactic Acid Fup @ 2Hr (0.5-2.0) mmol/L Total Bilirubin 3.1 H (0.0-1.0) mg/dL Direct Bilirubin 1.2 H (0.0-0.5) mg/dL ALT 86 H (0-40) U/L Troponin I High Sens 50.2 H (<3.5-35.0) ng/L B-Natriuretic Peptide 7800 H (<100) pg/mL 10/31/20 10/31/20 10/31/20 Range/Units 10: 10: 13:49 WBC (4.8-10.8) X10*3/uL RBC (4.60-5.80) X10*6/uL Hgb (14.0-18.0) g/dl Hct (42-52) % MCV (80-98) fL MCH (27.0-33.0) pg RDW (11.0-16.0) % Plt Count (160-400) X10*3/uL Lymph % (Auto) (20-40) % [place] % (Auto) (2-11) % Lymph # (Auto) (1.2-4.9) X10*3/uL PT 15.2 H (10.8-13.0) SEC INR 1.3 H (0.9-1.1) BUN (9-16) mg/dL Lactic Acid 2.1 H* (0.5-2.0) mmol/L Lactic Acid Fup @ 2Hr (0.5-2.0) mmol/L Total Bilirubin (0.0-1.0) mg/dL Direct Bilirubin (0.0-0.5) mg/dL ALT (0-40) U/L Troponin I High Sens 49.0 H (<3.5-35.0) ng/L B-Natriuretic Peptide (<100) pg/mL 10/31/20 Range/Units 13:49 WBC (4.8-10.8) X10*3/uL RBC (4.60-5.80) X10*6/uL Hgb (14.0-18.0) g/dl Hct (42-52) % MCV (80-98) fL MCH (27.0-33.0) pg RDW (11.0-16.0) % Plt Count (160-400) X10*3/uL Lymph % (Auto) (20-40) % [place] % (Auto) (2-11) % Lymph # (Auto) (1.2-4.9) X10*3/uL PT (10.8-13.0) SEC INR (0.9-1.1) BUN (9-16) mg/dL Lactic Acid (0.5-2.0) mmol/L Lactic Acid Fup @ 2Hr 2.1 H* (0.5-2.0) mmol/L Total Bilirubin (0.0-1.0) mg/dL Direct Bilirubin (0.0-0.5) mg/dL ALT (0-40) U/L Troponin I High Sens (<3.5-35.0) ng/L B-Natriuretic Peptide (<100) pg/mL Short CBC 10/31/20 Range/Units 10:27 WBC 4.4 L (4.8-10.8) X10*3/uL Hgb 13.2 L (14.0-18.0) g/dl Hct 39.7 L (42-52) % Plt Count 141 L (160-400) X10*3/uL BMP 10/31/20 10/31/20 10:26 10:27 Sodium 143 Cancelled Potassium 3.3 D Cancelled Chloride 102 Cancelled Carbon Dioxide 25 Cancelled BUN 18 H Cancelled Creatinine 1.21 Cancelled Calcium 8.9 Cancelled Liver Function 10/31/20 10/31/20 Range/Units 10:26 10:27 Total Bilirubin 3.1 H Cancelled (0.0-1.0) mg/dL Direct Bilirubin 1.2 H (0.0-0.5) mg/dL AST 35 D Cancelled (5-37) U/L ALT 86 H Cancelled (0-40) U/L Alkaline Phosphatase 94 Cancelled (39-117) U/L Albumin 3.8 Cancelled (3.5-5.0) g/dL Urine 10/31/20 Range/Units 13:54 Urine Color YELLOW Urine Appearance CLEAR Urine pH 6.0 (5.0-8.0) Ur Specific [place] 1.010 (1.005-1.025) Urine Protein TRACE (NEG-TRACE) MG/DL Urine Glucose (UA) NEG (NEG) MG/DL All other labs normal. Assessment and Plan (1) Cirrhosis: Status: Acute Thickening of gallbladder wall noted on imaging likely is related to cirrhosis. (2) Gallstones: Status: Acute No evidence of acute cholecystitis at this time. (3) CHF (congestive heart failure): Status: Acute Management per hospitalist service.
[2020-10-31 17:13] LABS: ~Lactic Acid-LAB USE ONLY 2.4 mmol/L (0.5-2.0)
[2020-10-31 20:34] LABS: Glucose, Whole Blood 92 mg/dL (60-115)
[2020-10-31] MEDS: Furosemide 200 MG in 0.9 % Sodium Chloride 80 ML IVCONT (20:49)
[2020-10-31] MEDS: Enoxaparin Sodium 40 MG/0.4 ML SYRINGE SUBCUT (20:50)
[2020-10-31] MEDS: Atorvastatin Calcium 40 MG TABLET PO (20:50)
[2020-10-31] MEDS: Ranolazine 500 MG TAB.ER.12H PO (20:50)
[2020-11-01] VITALS (8 sets, daily range): BP systolic 97–112; BP diastolic 55–68; PULSE 77–86; RESP 15–18; TEMP 36.1–37.3; O2SAT 97–100
--- NOTE | 2020-11-01 04:13 | PC.NURSE ---
at 0235 pt had 4 beat run asymptomatic md aware
[2020-11-01 06:27] LABS: MANUAL DIFF FLAG NO
[2020-11-01 06:55] LABS: Basophils Absolute Auto 0.1 X10*3/uL (0.0-0.2); Basophils Percent Auto 1.1 % (0-2); Eosinophils Absolute Auto 0.1 X10*3/uL (0.0-0.4); Eosinophils Percent Auto 1.1 % (0-4); Hematocrit 33.3 % (42-52); Hemoglobin 11.2 g/dl (14.0-18.0); Lymphocytes Absolute Auto 0.9 X10*3/uL (1.2-4.9); Lymphocytes Percent Auto 19.4 % (20-40); Mean Corpuscular HGB Conc 33.6 g/dl (31.0-36.0); Mean Corpuscular Hemoglobin 33.6 pg (27.0-33.0); Monocytes Absolute Auto 0.6 X10*3/uL (0.1-1.2); Monocytes Percent Auto 14.3 % (2-11); Neutrophils Absolute Auto 2.9 X10*3/uL (2.0-8.3); Neutrophils Percent Auto 64.1 % (45-73); Platelet Count 117 X10*3/uL (160-400); Red Blood Count 3.33 X10*6/uL (4.60-5.80); Red Cell Distribution Width 19.5 % (11.0-16.0); White Blood Count 4.5 X10*3/uL (4.8-10.8)
[2020-11-01 07:11] LABS: Glucose, Whole Blood 136 mg/dL (60-115)
[2020-11-01 07:22] LABS: Alanine Aminotransferase 61 U/L (0-40); Albumin Level 3.3 g/dL (3.5-5.0); Alkaline Phosphatase 80 U/L (39-117); Aspartate Amino Transferase 24 U/L (5-37); Bilirubin Direct 1.3 mg/dL (0.0-0.5); Blood Urea Nitrogen 19 mg/dL (9-16); Calcium 8.4 mg/dL (8.4-10.2); Creatinine Clr Calc Pharmacy 42.1; Estimated Glomerular Filt Rate > 60; Glucose Random 92 mg/dL (60-115); Total Protein 5.3 g/dL (6.5-8.0)
[2020-11-01 07:37] LABS: Anion Gap 17 (12-20); Carbon Dioxide 26 mmol/L (22-29); Chloride 104 mmol/L (96-108); Potassium 2.9 mmol/L (3.3-5.1); Sodium 144 mmol/L (135-145)
[2020-11-01] MEDS: Aspirin Enteric Coated 81 MG TABLET.DR PO (08:00)
[2020-11-01] MEDS: 0.9 % Sodium Chloride Flush 3 ML SYRINGE IVFLUSH (08:00)
[2020-11-01] MEDS: Ranolazine 500 MG TAB.ER.12H PO ×2 (08:00→21:13)
[2020-11-01] MEDS: Potassium Chloride ER 20 MEQ TAB.ER.PRT 40 MEQ PO (08:05)
--- NOTE | 2020-11-01 09:33 | MHC.CM.PN ---
CM met with Patient and Daughter/HCP/Sena @ [phone] at bedside and addressed IMM, providing them with the original and placing a copy on the chart. Patient lives alone in an apartment and is active with [employer] and applying for a [facility]. The goal for dc is SNF/STR in the [place] area and [facility] has initiated and will follow for dc planning. Patient has a walker, hospital bed, cane, and a transfer chair.
--- NOTE | 2020-11-01 10:54 | P.PNIM_ITS ---
Subjective Subjective Date of Service: 11/01/20 Interval History: felt much better this morning, but since breakfast has been very sob again at rest Cardiovascular Cardiovascular: Reports no additional cardiovascular complaints Gastrointestinal Gastrointestinal: Reports no additional gastrointestinal complaints Physical Exam Vital Signs: Vital Signs: Last Vital Signs Temp 97 F 11/01/20 07:25 Pulse 82 11/01/20 07:25 Resp 17 11/01/20 07:25 BP 112/67 11/01/20 07:25 Pulse Ox 99 11/01/20 07:25 Body Mass Index 22.1 General: lethargic O X 3, ill appearing, belly breathing, dyspneic, sclera icteric Resp: rales CVS: S1,S2,RRR, murmur, jvd, no le edema GI: soft, non tender, non distended Neuro: motor grossly weak Psych: appropriate affect Objective Data Current Medications Generic Name Dose Route Start Last Admin Trade Name Freq PRN Reason Stop Dose Admin Artificial Tears 1 drop 10/31/20 20:06 Artificial Tears 15 Ml Drops EYE-BOTH Q4H PRN Dry Eye(S) Aspirin 81 mg 11/01/20 09:00 11/01/20 08:00 Aspirin Enteric Coated 81 Mg Tablet.Dr PO 81 mg DAILY WINNIE Administration Atorvastatin Calcium 40 mg 10/31/20 21:00 10/31/20 20:50 Atorvastatin Calcium 40 Mg Tablet PO 40 mg BEDTIME WINNIE Administration Enoxaparin Sodium 40 mg 10/31/20 21:00 10/31/20 20:50 Enoxaparin Sodium 40 Mg/0.4 Ml Syringe SUBCUT 40 mg Q24H WINNIE Administration Furosemide 200 mg/ Sodium 100 mls @ 2.5 mls/hr 10/31/20 21:00 10/31/20 20:49 Chloride IVCONT 5 mg/hr .Q24H WINNIE 2.5 mls/hr Administration 5 MG/HR Insulin Human Lispro 0 unit 10/31/20 21:00 11/01/20 07:17 Insulin Lispro 100 Unit/Ml 3 Ml Vial SUBCUT Not Given QIDACHS [facility] Protocol Pharmacy Consult 1 each 10/31/20 14:37 Consult Rx Perform Med Rec MISCELLANE ONCE PRN Consult order Ranolazine 500 mg 10/31/20 20:06 11/01/20 08:00 Ranolazine 500 Mg Tab.Er.12h PO 500 mg Q12H WINNIE Administration Sodium Chloride 3 ml 11/01/20 00:00 11/01/20 08:00 0.9 % Sodium Chloride Flush 3 Ml Syringe IVFLUSH 3 ml QSHIFT WINNIE Administration Labs CBC & Chem 7: 11/01/20 05:24 11/01/20 05:24 Assessment and Plan (1) Ischemic cardiomyopathy: Status: Acute Assessment and Plan: 85M presented with abd pain and sob acute on chronic chf with reduced EF, ischemic continue lasix cardio following, plan to titrate back on neurohormonals question of acute cholecystitis likely not acute cholecystitis and more congestion from chf now with cardiogenic cirrhosis DM insulin sliding scale
[2020-11-01 11:09] LABS: Glucose, Whole Blood 179 mg/dL (60-115)
[2020-11-01] MEDS: Insulin Lispro 100 UNIT/ML 3 ML VIAL SUBCUT (11:34)
--- NOTE | 2020-11-01 12:11 | PM.CNCAR ---
History of Present Illness History of Present Illness Date of Service: 11/01/20 Requesting physician: Mars Spicer Consult reason: congestive heart failure Chief complaint: chf Narrative: We were asked to see Nando in cardiology consultation today of with recurrent presentation with abdominal distension and shortness of breath. Patient was discharge home on 10/23/2020 with what appears to be question cholecystitis and hypotension and acute kidney injury. His neurohormonal modulation was then subsequently discharged any was sent home on 40 mg as well as diabetic medication and analysis in. None of his neurohormonal modulation were continued. He says 4 days he was feeling well then he started noticing gradually increasing abdominal distention and got short of breath and came to the emergency room. He was then started on Lasix drip and this morning as per the hospitalist team was doing better but when I am seeing him again his very short of breath. He is very disappointed with his overall health condition. He has had as you know multiple hospital admissions with decompensated congestive heart failure. He has had poor tolerance to neurohormonal modulation and subsequently underwent cardiac resynchronization therapy with defibrillator recently. He has severe LV systolic dysfunction with LVEF of 10-15% with severe mitral regurgitation. Patient continues to be short of breath right now and has abdominal distension. Noted to have elevated LFTs most consistent with congestive liver disease. He denies palpitations, ICD discharge. Denies lightheadedness, syncope. Review of Systems Constitutional: Constitutional: Denies chills, Denies fever(s) and Reports lethargy Cardiovascular: Cardiovascular: Reports Abdominal Distension, Denies chest pain, Denies leg edema, Denies palpitations, Reports dyspnea and Reports orthopnea Respiratory: Respiratory: Reports no additional respiratory complaints and Reports dyspnea Gastrointestinal: Gastrointestinal: Reports bloating Genitourinary: Genitourinary: Reports no additional male genitourinary complaints Integumentary/Breasts: Skin/Breast: Reports system reviewed and no additional complaints, except as docu Neurologic: Reports system reviewed and no additional complaints, except as documented Psychiatric: Psychiatric: Reports no additional psychiatric complaints Endocrine: Endocrine: Reports no additional endocrine complaints and Denies palpitations Hematologic/Lymphatic: Hematologic/Lymphatic: Reports no additional hematologic/lymphatic complaints PMFSH Past Medical History Medical History Atherosclerotic cardiovascular disease Chronic HFrEF (heart failure with reduced ejection fraction) Cirrhosis COPD (chronic obstructive pulmonary disease) COPD (chronic obstructive pulmonary disease) Diabetes mellitus GERD (gastroesophageal reflux disease) History of myocardial infarction Hyperlipidemia Ischemic cardiomyopathy LBBB (left bundle branch block) Non-rheumatic mitral regurgitation NSVT (nonsustained ventricular tachycardia) Pulmonary hypertension Family History Family History Father No problems noted. Mother No problems noted. Family history: reviewed and not pertinent Surgical History Surgical History Hx of CABG S/P CABG x 3 Social History Social History Household Members: Family Housing: Apartment Alcohol intake: never Smoking Status: Former smoker Tobacco Type: Cigarette Second Hand Smoke Exposure: No service: No Current occupational status: retired and disabled Meds Allergies Allergy/AdvReac Type Severity Reaction Status Date / Time No Known Allergies Allergy Unknown NOT Verified 10/27/20 11:52 APPLICABLE Active Medications: Current Medications Generic Name Dose Route Start Last Admin Trade Name Freq PRN Reason Stop Dose Admin Artificial Tears 1 drop 10/31/20 20:06 Artificial Tears 15 Ml Drops EYE-BOTH Q4H PRN Dry Eye(S) Aspirin 81 mg 11/01/20 09:00 11/01/20 08:00 Aspirin Enteric Coated 81 Mg Tablet.Dr PO 81 mg DAILY WINNIE Administration Atorvastatin Calcium 40 mg 10/31/20 21:00 10/31/20 20:50 Atorvastatin Calcium 40 Mg Tablet PO 40 mg BEDTIME WINNIE Administration Enoxaparin Sodium 40 mg 10/31/20 21:00 10/31/20 20:50 Enoxaparin Sodium 40 Mg/0.4 Ml Syringe SUBCUT 40 mg Q24H WINNIE Administration Furosemide 200 mg/ Sodium 100 mls @ 2.5 mls/hr 10/31/20 21:00 10/31/20 20:49 Chloride IVCONT 5 mg/hr .Q24H WINNIE 2.5 mls/hr Administration 5 MG/HR Insulin Human Lispro 0 unit 10/31/20 21:00 11/01/20 11:34 Insulin Lispro 100 Unit/Ml 3 Ml Vial SUBCUT 2 unit QIDACHS WINNIE Administration Protocol Pharmacy Consult 1 each 10/31/20 14:37 Consult Rx Perform Med Rec MISCELLANE ONCE PRN Consult order Ranolazine 500 mg 10/31/20 20:06 11/01/20 08:00 Ranolazine 500 Mg Tab.Er.12h PO 500 mg Q12H WINNIE Administration Sodium Chloride 3 ml 11/01/20 00:00 11/01/20 08:00 0.9 % Sodium Chloride Flush 3 Ml Syringe IVFLUSH 3 ml QSHIFT WINNIE Administration Home Medications Medication Instructions Recorded Confirmed Last Taken Type Combivent Respimat 1 puff INHALATION QID 08/06/20 10/31/20 08/06/20 History Trulicity 0.75 mg SUBCUT FR 09/01/20 10/31/20 10/24/20 History aspirin 81 mg PO DAILY 09/01/20 10/31/20 Unknown History atorvastatin 80 mg PO DAILY 09/01/20 10/31/20 Unknown History famotidine 20 mg PO BID 09/01/20 10/31/20 Unknown History polyvinyl alcohol [Artificial 1 drp OPHTHALMIC (EYE) Q4H PRN 09/01/20 10/31/20 Unknown History Tears (polyvin alc)] ranolazine 500 mg PO BID 09/01/20 10/31/20 Unknown History furosemide 40 mg PO BID@08,12 10/31/20 10/31/20 Unknown History Physical Exam Vital Signs: Vital Signs: Last Vital Signs Temp 97.2 F 11/01/20 12:00 Pulse 79 11/01/20 12:00 Resp 18 11/01/20 12:00 BP 99/60 11/01/20 12:00 Pulse Ox 99 11/01/20 12:00 Body Mass Index 22.1 Const: General: cooperative, acute distress moderate and respiratory and ill appearing Nutritional Appearance: thin and other (Cachectic-appearing) Orientation/consciousness: patient oriented x3 HENMT: Head: Yes normocephalic and Yes atraumatic Neck: Neck: Yes trachea midline, Yes supple and Yes JVD Resp: Effort & Inspection: normal respiratory effort Auscultation: no rales, no wheezes and diminished lung sounds Cardio: Palpation: abnormal PMI displaced PMI and enlarged PMI Rate: regular rate Rhythm: regular rhythm Heart sounds: S1 normal heart sound present, S2 normal heart sound present and Murmur heart sound present systolic GI: Auscultation: normal bowel sounds Skin: General skin exam: ecchymosis Neuro: General: patient oriented x3 and no focal motor deficits Extrem: General: Yes no clubbing, cyanosis or edema Psych: Appearance: grossly normal Affect: Anxious affect present Results Labs and Meds Result diagrams: 11/01/20 05:24 11/01/20 05:24 Lab results: Laboratory Results - last 24 hr 10/31/20 10/31/20 10/31/20 13:49 13:49 13:54 WBC RBC Hgb Hct MCV MCH MCHC RDW Plt Count MPV Immature Gran % (Auto) Neut % (Auto) Lymph % (Auto) [place] % (Auto) Eos % (Auto) Baso % (Auto) Lymph # (Auto) [place] # (Auto) Eos # (Auto) Baso # (Auto) Abs Immat Gran (auto) Absolute Neuts (auto) Absolute Nucleated RBC Nucleated RBC % (auto) Sodium Potassium Chloride Carbon Dioxide Anion Gap BUN Creatinine Estim Creat Clear Calc Estimated GFR POC Glucose Random Glucose Lactic Acid Fup @ 2Hr 2.1 H* Lactic Acid Fup @ 4Hr Calcium Total Bilirubin Direct Bilirubin AST ALT Alkaline Phosphatase Troponin I High Sens 49.0 H Total Protein Albumin Urine Color YELLOW Urine Appearance CLEAR Urine pH 6.0 Ur Specific [place] 1.010 Urine Protein TRACE Urine Glucose (UA) NEG Urine Ketones NEG Urine Blood NEG Urine Nitrite NEG Ur Leukocyte Esterase NEG 10/31/20 10/31/20 11/01/20 16:46 20:31 05:24 WBC 4.5 L RBC 3.33 L Hgb 11.2 L Hct 33.3 L MCV 100.0 H MCH 33.6 H MCHC 33.6 RDW 19.5 H Plt Count 117 L MPV 12.0 Immature Gran % (Auto) 0.0 Neut % (Auto) 64.1 Lymph % (Auto) 19.4 L Brule % (Auto) 14.3 H Eos % (Auto) 1.1 Baso % (Auto) 1.1 Lymph # (Auto) 0.9 L [place] # (Auto) 0.6 Eos # (Auto) 0.1 Baso # (Auto) 0.1 Abs Immat Gran (auto) 0.00 Absolute Neuts (auto) 2.9 Absolute Nucleated RBC 0.000 Nucleated RBC % (auto) 0.0 Sodium Potassium Chloride Carbon Dioxide Anion Gap BUN Creatinine Estim Creat Clear Calc Estimated GFR POC Glucose 92 Random Glucose Lactic Acid Fup @ 2Hr Lactic Acid Fup @ 4Hr 2.4 H* Calcium Total Bilirubin Direct Bilirubin AST ALT Alkaline Phosphatase Troponin I High Sens Total Protein Albumin Urine Color Urine Appearance Urine pH Ur Specific [place] Urine Protein Urine Glucose (UA) Urine Ketones Urine Blood Urine Nitrite Ur Leukocyte Esterase 11/01/20 11/01/20 11/01/20 05:24 07:05 11:05 WBC RBC Hgb Hct MCV MCH MCHC RDW Plt Count MPV Immature Gran % (Auto) Neut % (Auto) Lymph % (Auto) [place] % (Auto) Eos % (Auto) Baso % (Auto) Lymph # (Auto) [place]le # (Auto) Eos # (Auto) Baso # (Auto) Abs Immat Gran (auto) Absolute Neuts (auto) Absolute Nucleated RBC Nucleated RBC % (auto) Sodium 144 Potassium 2.9 L Chloride 104 Carbon Dioxide 26 Anion Gap 17 BUN 19 H Creatinine 1.08 Estim Creat Clear Calc 42.1 Estimated GFR > 60 POC Glucose 136 H 179 H Random Glucose 92 Lactic Acid Fup @ 2Hr Lactic Acid Fup @ 4Hr Calcium 8.4 Total Bilirubin 3.0 H Direct Bilirubin 1.3 H AST 24 ALT 61 H Alkaline Phosphatase 80 Troponin I High Sens Total Protein 5.3 L Albumin 3.3 L Urine Color Urine Appearance Urine pH Ur Specific [place] Urine Protein Urine Glucose (UA) Urine Ketones Urine Blood Urine Nitrite Ur Leukocyte Esterase Atrial sensed ventricular paced rhythm Imaging Radiologist's impression: Impressions Abdomen/Pelvis CT 10/31/20 10:05 IMPRESSION: 1. Distended gallbladder containing gallstones, bile/sludge. There is haziness adjacent to gallbladder wall, with some fluid present in this region. Findings raise a possibility of acute cholecystitis. Consider further evaluation with ultrasound. 2. Moderate right and small left pleural effusion, slightly increased from previous. Bibasilar atelectasis. 3. Findings suggest cirrhotic liver. No focal lesions demonstrated. 4. Mild wall thickening and pericolonic inflammatory changes associated with cecum and the proximal ascending colon, which could reflect colitis. 5. Small ascites in the abdomen or pelvis, increased from previous. 6. Enlarged prostate. Head CT 10/31/20 10:05 IMPRESSION: No CT evidence of acute intracranial hemorrhage or acute territorial infarction. 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 Hepatobiliary Scan Nuclear Medicine 10/31/20 14:30 IMPRESSION: Gallbladder is visualized. Therefore there is no scintigraphic evidence for obstruction of the cystic duct. The cystic duct is patent. The bowel activity however is not imaged up to 60 minutes. Consider delayed imaging. We understand the delayed images are canceled by the emergency room. Funmi Duque NP Assessment and Plan (1) Acute exacerbation of congestive heart failure: Status: Acute Unfortunately patient presents again with acute exacerbation of congestive heart failure most likely due to under diuresis. He has progressive heart failure syndrome in the last few months despite therapy and has not tolerated neurohormonal modulation with prior hospitalization with hypertension acute kidney injury despite recent cardiac resynchronization therapy. He has underlying severe LV systolic dysfunction and underlying severe mitral regurgitation. Repeat echocardiogram to assess if mitral regurgitation is improved since cardiac resynchronization therapy, will be performed on Tuesday. Meanwhile appears still congested and still very symptomatic. Will continue gentle diuresis with Lasix. Strict intake and output chart to be pursued. Will slowly add neurohormonal modulation, will start with Aldactone 12.5 mg daily. Closely follow BMP and BNP on a daily basis. Prognosis is extremely limited and guarded. This was explained to the patient. We discussed about advanced directives. He shows understanding and will discuss with his daughter. Will follow with you
[2020-11-01] MEDS: Spironolactone 25 MG TABLET 12.5 MG PO (12:44)
[2020-11-01 16:44] LABS: Glucose, Whole Blood 134 mg/dL (60-115)
[2020-11-01 20:47] LABS: Glucose, Whole Blood 132 mg/dL (60-115)
[2020-11-01] MEDS: Enoxaparin Sodium 40 MG/0.4 ML SYRINGE SUBCUT (21:12)
[2020-11-01] MEDS: Atorvastatin Calcium 40 MG TABLET PO (21:13)
[2020-11-01] MEDS: Furosemide 200 MG in 0.9 % Sodium Chloride 80 ML IVCONT (22:04)
[2020-11-02] VITALS (9 sets, daily range): BP systolic 91–108; BP diastolic 50–67; PULSE 75–84; RESP 18–28; TEMP 36.1–37.2; O2SAT 96–100; BMI 22.1
[2020-11-02 06:03] LABS: MANUAL DIFF FLAG NO
[2020-11-02 06:15] LABS: Basophils Percent Auto 0.7 % (0-2); Eosinophils Absolute Auto 0.1 X10*3/uL (0.0-0.4); Eosinophils Percent Auto 1.1 % (0-4); Hematocrit 39.4 % (42-52); Imm Gran Abs Auto 0.01 X10*3/uL (0.00-0.03); Imm Gran Pct Auto 0.2 % (0.0-0.4); Lymphocytes Percent Auto 22.1 % (20-40); Mean Corpuscular Hemoglobin 33.6 pg (27.0-33.0); Mean Corpuscular Volume 101.8 fL (80-98); Mean Platelet Volume 12.3 fL (9.4-12.4); Monocytes Absolute Auto 0.6 X10*3/uL (0.1-1.2); Monocytes Percent Auto 13.3 % (2-11); Neutrophils Absolute Auto 2.7 X10*3/uL (2.0-8.3); Neutrophils Percent Auto 62.6 % (45-73); Platelet Count 113 X10*3/uL (160-400); Red Blood Count 3.87 X10*6/uL (4.60-5.80); Red Cell Distribution Width 19.8 % (11.0-16.0); White Blood Count 4.4 X10*3/uL (4.8-10.8)
[2020-11-02 06:31] LABS: Alanine Aminotransferase 60 U/L (0-40); Albumin Level 3.6 g/dL (3.5-5.0); Alkaline Phosphatase 86 U/L (39-117); Anion Gap 14 (12-20); Aspartate Amino Transferase 24 U/L (5-37); Bilirubin Direct 1.2 mg/dL (0.0-0.5); Bilirubin Total 2.7 mg/dL (0.0-1.0); Blood Urea Nitrogen 25 mg/dL (9-16); Calcium 8.9 mg/dL (8.4-10.2); Carbon Dioxide 27 mmol/L (22-29); Chloride 103 mmol/L (96-108); Creatinine Clr Calc Pharmacy 34.5; Estimated Glomerular Filt Rate 52; Glucose Fasting 111 mg/dL (60-99); Magnesium 2.6 mg/dL (1.6-2.6); Potassium 3.9 mmol/L (3.3-5.1); Sodium 140 mmol/L (135-145)
[2020-11-02 06:45] LABS: B Type Natriuretic Peptide 3864 pg/mL (<100)
[2020-11-02 07:34] LABS: Glucose, Whole Blood 114 mg/dL (60-115)
--- NOTE | 2020-11-02 08:24 | ECG_ITS ---
Test Reason : CHANGES CP Blood Pressure : / mmHG Vent. Rate : 084 BPM Atrial Rate : 084 BPM P-R Int : 118 ms QRS Dur : 160 ms QT Int : 460 ms P-R-T Axes : 059 -24 -43 degrees QTc Int : 543 ms Atrial-sensed ventricular-paced rhythm Abnormal ECG No significant changes when compared with the previous EKG of 31 october 2020 Referred By: Mars Spicer Electronically Signed By:KALEIGH CRUZ
[2020-11-02] MEDS: ondansetron HCL 4 MG/2 ML VIAL IVPUSH (08:29)
[2020-11-02] MEDS: 0.9 % Sodium Chloride Flush 3 ML SYRINGE IVFLUSH ×2 (08:29→20:12)
[2020-11-02] MEDS: Ranolazine 500 MG TAB.ER.12H PO ×2 (09:29→20:12)
[2020-11-02] MEDS: Aspirin Enteric Coated 81 MG TABLET.DR PO (09:30)
[2020-11-02] MEDS: Spironolactone 25 MG TABLET 12.5 MG PO (09:30)
--- NOTE | 2020-11-02 09:42 | HO.PM.IMPN ---
Subjective Subjective Date of Service: 11/02/20 Interval History: sob, nausea Cardiovascular Cardiovascular: Reports no additional cardiovascular complaints Respiratory Respiratory: Reports no additional respiratory complaints Physical Exam Vital Signs: Vital Signs: Last Vital Signs Temp 97.1 F 11/02/20 07:41 Pulse 78 11/02/20 09:30 Resp 28 H 11/02/20 07:41 BP 100/62 11/02/20 09:30 Pulse Ox 100 11/02/20 07:41 Body Mass Index 22.1 General: lethargic O X 3, ill appearing, tearful, dyspneic, sclera icteric Resp: rales CVS: S1,S2,RRR, murmur, jvd, no le edema GI: soft, non tender, non distended Neuro: motor grossly weak Psych: appropriate affect Objective Data Current Medications Generic Name Dose Route Start Last Admin Trade Name Freq PRN Reason Stop Dose Admin Artificial Tears 1 drop 10/31/20 20:06 Artificial Tears 15 Ml Drops EYE-BOTH Q4H PRN Dry Eye(S) Aspirin 81 mg 11/01/20 09:00 11/02/20 09:30 Aspirin Enteric Coated 81 Mg Tablet.Dr PO 81 mg DAILY WINNIE Administration Atorvastatin Calcium 40 mg 10/31/20 21:00 11/01/20 21:13 Atorvastatin Calcium 40 Mg Tablet PO 40 mg BEDTIME WINNIE Administration Enoxaparin Sodium 40 mg 10/31/20 21:00 11/01/20 21:12 Enoxaparin Sodium 40 Mg/0.4 Ml Syringe SUBCUT 40 mg Q24H WINNIE Administration Furosemide 200 mg/ Sodium 100 mls @ 2.5 mls/hr 10/31/20 21:00 11/01/20 22:04 Chloride IVCONT 5 mg/hr .Q24H WINNIE 2.5 mls/hr Administration 5 MG/HR Insulin Human Lispro 0 unit 10/31/20 21:00 11/02/20 07:06 Insulin Lispro 100 Unit/Ml 3 Ml Vial SUBCUT Not Given QIDACHS [facility] Protocol Ondansetron HCl 4 mg 11/02/20 08:21 11/02/20 08:29 Ondansetron Hcl 4 Mg/2 Ml Vial IVPUSH 4 mg Q8H PRN Administration nausea Pharmacy Consult 1 each 10/31/20 14:37 Consult Rx Perform Med Rec MISCELLANE ONCE PRN Consult order Ranolazine 500 mg 04/30/21 20:06 11/02/20 09:29 Ranolazine 500 Mg Tab.Er.12h PO 500 mg Q12H WINNIE Administration Sodium Chloride 3 ml 11/01/20 00:00 11/02/20 08:29 0.9 % Sodium Chloride Flush 3 Ml Syringe IVFLUSH 3 ml QSHIFT WINNIE Administration Spironolactone 12.5 mg 11/01/20 12:20 11/02/20 09:30 Spironolactone 25 Mg Tablet PO 12.5 mg DAILY WINNIE Administration Protocol Labs CBC & Chem 7: 11/02/20 05:37 11/02/20 05:37 Microbiology Microbiology Results: Microbiology 10/31/20 13:49 Blood - Venous Blood Culture - Preliminary No growth after 24 hours. 10/31/20 10:25 Blood - Venous Blood Culture - Preliminary No growth after 24 hours. Assessment and Plan (1) Ischemic cardiomyopathy: Status: Acute Assessment and Plan: 85M presented with abd pain and sob acute on chronic chf with reduced EF, ischemic still sob, bnp decreasing, creatinine increasing started on aldactone on 5mg/hr lasix cardio following, plan to titrate back on neurohormonals question of acute cholecystitis likely not acute cholecystitis and more congestion from chf now with cardiogenic cirrhosis DM insulin sliding scale
--- NOTE | 2020-11-02 10:35 | P.PNCA_ITS ---
Subjective Subjective Date of Service: 11/02/20 Principal diagnosis: CHF Interval history: Patient says he is breathing better. This morning he had nausea and headache. However got Zofran and was sleepy and overall nausea is improved. His overall negative balance recorded is -500 cc. However he has BNP is down rate significantly. He has tolerated Aldactone with no significant hypertension. Creatinine has minimally gone up. Denies any chest pain. Review of Systems Constitutional: Reports no additional constitutional complaints Cardiovascular: Reports no additional cardiovascular complaints and Reports dyspnea (Improving) Respiratory: Reports no additional respiratory complaints Gastrointestinal: Reports nausea Genitourinary: Reports no additional male genitourinary complaints Musculoskeletal: Reports no additional musculoskeletal complaints Reports system reviewed and no additional complaints, except as documented Physical Exam Vital Signs: Last Vital Signs Temp 97.1 F 11/02/20 07:41 Pulse 78 11/02/20 09:30 Resp 28 H 11/02/20 07:41 BP 100/62 11/02/20 09:30 Pulse Ox 100 11/02/20 07:41 Body Mass Index 22.1 Const General: cooperative and acute distress moderate and respiratory Nutritional Appearance: underweight Orientation/consciousness: patient oriented x3 Neck Neck: Yes trachea midline and Yes JVD Resp Effort & Inspection: normal respiratory effort Auscultation: no rales and diminished lung sounds Cardio Palpation: abnormal PMI displaced PMI and enlarged PMI Rate: regular rate Rhythm: regular rhythm Heart sounds: S1 normal heart sound present, S2 normal heart sound present and Murmur heart sound present systolic GI Auscultation: normal bowel sounds Neuro General: patient oriented x3 Extrem General: Yes no clubbing, cyanosis or edema Results Labs and Meds Result diagrams: 11/02/20 05:37 11/02/20 05:37 Lab results: Laboratory Results - last 24 hr 11/01/20 11/01/20 11/01/20 11:05 16:41 20:44 WBC RBC Hgb Hct MCV MCH MCHC RDW Plt Count MPV Immature Gran % (Auto) Neut % (Auto) Lymph % (Auto) [place] % (Auto) Eos % (Auto) Baso % (Auto) Lymph # (Auto) [place] # (Auto) Eos # (Auto) Baso # (Auto) Abs Immat Gran (auto) Absolute Neuts (auto) Absolute Nucleated RBC Nucleated RBC % (auto) Sodium Potassium Chloride Carbon Dioxide Anion Gap BUN Creatinine Estim Creat Clear Calc Estimated GFR POC Glucose 179 H 134 H 132 H Random Glucose Fasting Glucose Calcium Magnesium Total Bilirubin Direct Bilirubin AST ALT Alkaline Phosphatase B-Natriuretic Peptide Total Protein Albumin 11/02/20 11/02/20 11/02/20 05:37 05:37 05:37 WBC 4.4 L RBC 3.87 L Hgb 13.0 L Hct 39.4 L MCV 101.8 H MCH 33.6 H MCHC 33.0 RDW 19.8 H Plt Count 113 L MPV 12.3 Immature Gran % (Auto) 0.2 Neut % (Auto) 62.6 Lymph % (Auto) 22.1 [place] % (Auto) 13.3 H Eos % (Auto) 1.1 Baso % (Auto) 0.7 Lymph # (Auto) 1.0 L [place] # (Auto) 0.6 Eos # (Auto) 0.1 Baso # (Auto) 0.0 Abs Immat Gran (auto) 0.01 Absolute Neuts (auto) 2.7 Absolute Nucleated RBC 0.000 Nucleated RBC % (auto) 0.0 Sodium Cancelled Potassium Cancelled Chloride Cancelled Carbon Dioxide Cancelled Anion Gap Cancelled BUN Cancelled Creatinine Cancelled Estim Creat Clear Calc Cancelled Estimated GFR Cancelled POC Glucose Random Glucose Cancelled Fasting Glucose Calcium Cancelled Magnesium Total Bilirubin Direct Bilirubin AST ALT Alkaline Phosphatase B-Natriuretic Peptide 3864 H Total Protein Albumin 11/02/20 11/02/20 05:37 07:04 WBC RBC Hgb Hct MCV MCH MCHC RDW Plt Count MPV Immature Gran % (Auto) Neut % (Auto) Lymph % (Auto) [place] % (Auto) Eos % (Auto) Baso % (Auto) Lymph # (Auto) [place] # (Auto) Eos # (Auto) Baso # (Auto) Abs Immat Gran (auto) Absolute Neuts (auto) Absolute Nucleated RBC Nucleated RBC % (auto) Sodium 140 Potassium 3.9 D Chloride 103 Carbon Dioxide 27 Anion Gap 14 BUN 25 H Creatinine 1.32 Estim Creat Clear Calc 34.5 Estimated GFR 52 POC Glucose 114 Random Glucose Fasting Glucose 111 H Calcium 8.9 Magnesium 2.6 Total Bilirubin 2.7 H Direct Bilirubin 1.2 H AST 24 ALT 60 H Alkaline Phosphatase 86 B-Natriuretic Peptide Total Protein 6.0 L Albumin 3.6 Progress Note: A&P Assessment and plan (1) Acute exacerbation of congestive heart failure: Status: Acute Assessment and Plan: Decompensated heart failure with advanced heart failure despite cardiac resynchronization therapy and 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 Improved with IV Lasix therapy. Tolerated low-dose Aldactone therapy with slight rise in creatinine. Will continue to monitor closely his renal function. Also continue to trend BNP. Continue IV Lasix therapy. Will add low-dose Diovan 20 mg twice a day as the arterial vaso dilator as well as the neural hormonal modulator. Continue to monitor blood pressure closely. Acceptable blood pressure systolic 85 mm Hg as long as he is maintaining well. Will continue to follow with him closely. Overall prognosis is very limited. Limited echocardiogram tomorrow to assess LV function as well as mitral regur gitation. Fall Risk Details Current Medications: Current Medications Generic Name Dose Route Start Last Admin Trade Name Freq PRN Reason Stop Dose Admin Artificial Tears 1 drop 10/31/20 20:06 Artificial Tears 15 Ml Drops EYE-BOTH Q4H PRN Dry Eye(S) Aspirin 81 mg 11/01/20 09:00 11/02/20 09:30 Aspirin Enteric Coated 81 Mg Tablet. PO 81 mg DAILY WINNIE Administration Atorvastatin Calcium 40 mg 10/31/20 21:00 11/01/20 21:13 Atorvastatin Calcium 40 Mg Tablet PO 40 mg BEDTIME WINNIE Administration Enoxaparin Sodium 40 mg 10/31/20 21:00 11/01/20 21:12 Enoxaparin Sodium 40 Mg/0.4 Ml Syringe SUBCUT 40 mg Q24H WINNIE Administration Furosemide 200 mg/ Sodium 100 mls @ 2.5 mls/hr 10/31/20 21:00 11/01/20 22:04 Chloride IVCONT 5 mg/hr .Q24H WINNIE 2.5 mls/hr Administration 5 MG/HR Insulin Human Lispro 0 unit 10/31/20 21:00 11/02/20 07:06 Insulin Lispro 100 Unit/Ml 3 Ml Vial SUBCUT Not Given QIDACHS WINNIE Protocol Ondansetron HCl 4 mg 11/02/20 08:21 11/02/20 08:29 Ondansetron Hcl 4 Mg/2 Ml Vial IVPUSH 4 mg Q8H PRN Administration nausea Pharmacy Consult 1 each 10/31/20 14:37 Consult Rx Perform Med Rec MISCELLANE ONCE PRN Consult order Ranolazine 500 mg 10/31/20 20:06 11/02/20 09:29 Ranolazine 500 Mg Tab.Er.12h PO 500 mg Q12H WINNIE Administration Sodium Chloride 3 ml 11/01/20 00:00 11/02/20 08:29 0.9 % Sodium Chloride Flush 3 Ml Syringe IVFLUSH 3 ml QSHIFT WINNIE Administration Spironolactone 12.5 mg 11/01/20 12:20 11/02/20 09:30 Spironolactone 25 Mg Tablet PO 12.5 mg DAILY WINNIE Administration Protocol Valsartan 20 mg 11/02/20 10:35 Valsartan 40 Mg Tablet PO BID WINNIE Protocol Time Spent With Patient Time: Total time spent is greater than 50% in coordination of care (as documented) at patient's floor/unit and/or counseling patient: Time with patient: 25 - 35 minutes
[2020-11-02 11:44] LABS: Glucose, Whole Blood 126 mg/dL (60-115)
[2020-11-02] MEDS: Valsartan 40 MG TABLET 20 MG PO ×2 (11:50→20:11)
[2020-11-02 16:14] LABS: Glucose, Whole Blood 112 mg/dL (60-115)
[2020-11-02] MEDS: Atorvastatin Calcium 40 MG TABLET PO (20:11)
[2020-11-02] MEDS: Enoxaparin Sodium 40 MG/0.4 ML SYRINGE SUBCUT (20:12)
[2020-11-02 20:38] LABS: Glucose, Whole Blood 120 mg/dL (60-115)
[2020-11-02] MEDS: Furosemide 200 MG in 0.9 % Sodium Chloride 80 ML IVCONT (21:28)
[2020-11-03 04:00] VITALS: BP 102/56; PULSE 76; RESP 18; TEMP 36.9; O2SAT 97
[2020-11-03 05:02] LABS: MANUAL DIFF FLAG NO
[2020-11-03 05:07] LABS: Basophils Absolute Auto 0.1 X10*3/uL (0.0-0.2); Eosinophils Absolute Auto 0.1 X10*3/uL (0.0-0.4); Eosinophils Percent Auto 1.7 % (0-4); Hematocrit 35.7 % (42-52); Imm Gran Abs Auto 0.03 X10*3/uL (0.00-0.03); Imm Gran Pct Auto 0.6 % (0.0-0.4); Lymphocytes Percent Auto 18.3 % (20-40); Mean Corpuscular HGB Conc 33.6 g/dl (31.0-36.0); Mean Corpuscular Hemoglobin 33.6 pg (27.0-33.0); Mean Platelet Volume 12.8 fL (9.4-12.4); Monocytes Absolute Auto 0.7 X10*3/uL (0.1-1.2); Monocytes Percent Auto 13.7 % (2-11); Neutrophils Absolute Auto 3.4 X10*3/uL (2.0-8.3); Neutrophils Percent Auto 64.7 % (45-73); Red Blood Count 3.57 X10*6/uL (4.60-5.80); Red Cell Distribution Width 19.2 % (11.0-16.0); White Blood Count 5.2 X10*3/uL (4.8-10.8)
[2020-11-03 05:10] LABS: Platelet Count 98 X10*3/uL (160-400)
[2020-11-03 05:35] LABS: Anion Gap 14 (12-20); B Type Natriuretic Peptide 4183 pg/mL (<100); Blood Urea Nitrogen 25 mg/dL (9-16); Calcium 8.5 mg/dL (8.4-10.2); Carbon Dioxide 29 mmol/L (22-29); Chloride 100 mmol/L (96-108); Creatinine Clr Calc Pharmacy 36.5; Estimated Glomerular Filt Rate 55; Glucose Fasting 94 mg/dL (60-99); Sodium 139 mmol/L (135-145)
[2020-11-03 06:00] VITALS: BMI 22.4
[2020-11-03 07:06] VITALS: BP 116/68; PULSE 80; RESP 21; TEMP 36.4; O2SAT 97
--- NOTE | 2020-11-03 07:30 | CA_ITS ---
Transthoracic Echocardiogram Patient (Last, First, Middle): WaltNando Sims D Gender: Male Date of : 1935 Age: 85 Procedure Date: 11/03/2020 Procedure Type: Transthoracic [place] [facility] [place]: 162.56 cm Weight: 58.97 kg BSA: 1.63 m2 Heart Rate: bpm BP: 116 / 68 mmHg Glass Technician: EDGAR Hsieh MD: Mars Spicer MD Symptoms: CHF,eval LV and mitral regurge Study Quality: Good ECG Rhythm: Sinus Conclusions: - The left ventricular systolic function is severely decreased. The visually estimated ejection fraction is between 10-15%. - Wall motion abnormalities related to underlying coronary disease. - There is severe mitral valve regurgitation. Findings Left Ventricle Mildly increased left ventricular cavity size. The left ventricular systolic function is severely decreased. The visually estimated ejection fraction is between 10-15%. There is evidence of regional wall motion abnormalities. Wall Motion Rest Echo Findings The inferolateral wall and basal inferior segment are hypokinetic. The apex, apical anterior, apical inferior, mid inferior, and basal inferoseptal segments are akinetic. Mitral Valve The posterior mitral leaflet has restricted mobility. There is moderate mitral annular calcification. There is severe mitral valve regurgitation. There is no mitral valve stenosis. Prior Study Comparison No significant change compared to prior study dated: 05/28/2020. Measurements 2D Linear Measurements IVSd: 1.04 0.6-0.9/0.6-1.0 cm LVIDd: 5.84 3.9-5.3/4.2-5.9 cm LVIDd Index: 3.58 2.4-3.2/2.2-3.1 cm/m2 LVIDs: 5.37 2.0-3.6 cm LVPWd: 1.01 0.7-1.1 cm LV Mass: 303.67 67-162/88-224 g LV Mass Index: 186.30 43-95/49-115 g/m2 2D Systolic Function EF 4C: 27.30 >55% EF 2C: 22.70 >55% EF BiP: 23.60 >55% Mitral Valve E'Lateral: 6.19 MR Vol - PW Dopp: 145.80 MR VTI: 1.62 MR ERO: 90.00 MR Alias Kleber: 0.59 MR RAD: 1.10 Diastolic Function E' Laterial: 6.19 Updated in Other Vendor System with Status of Final Ramin Shearer MD electronically signed on 11/03/2020 5:21:18 PM with status of Final
[2020-11-03 07:34] LABS: Glucose, Whole Blood 89 mg/dL (60-115)
[2020-11-03] MEDS: Spironolactone 25 MG TABLET 12.5 MG PO (07:42)
[2020-11-03] MEDS: Ranolazine 500 MG TAB.ER.12H PO ×2 (07:42→20:41)
[2020-11-03] MEDS: Aspirin Enteric Coated 81 MG TABLET.DR PO (07:43)
[2020-11-03] MEDS: Valsartan 40 MG TABLET 20 MG PO ×2 (07:44→20:41)
--- NOTE | 2020-11-03 09:28 | P.PNIM_ITS ---
Subjective Subjective Date of Service: 11/03/20 Interval History: a bit better today, but still very sob, weak Cardiovascular Cardiovascular: Reports no additional cardiovascular complaints Gastrointestinal Gastrointestinal: Reports no additional gastrointestinal complaints Physical Exam Vital Signs: Vital Signs: Last Vital Signs Temp 97.6 F 11/03/20 07:06 Pulse 80 11/03/20 07:06 Resp 21 H 11/03/20 07:06 BP 116/68 11/03/20 07:06 Pulse Ox 97 11/03/20 07:06 Body Mass Index 22.4 General: lethargic O X 3, ill appearing, ancious, dyspneic Resp: diminished CVS: S1,S2,RRR, murmur, jvd, no le edema GI: soft, non tender, non distended Neuro: motor grossly weak Psych: appropriate affect Objective Data Current Medications Generic Name Dose Route Start Last Admin Trade Name Freq PRN Reason Stop Dose Admin Artificial Tears 1 drop 10/31/20 20:06 Artificial Tears 15 Ml Drops EYE-BOTH Q4H PRN Dry Eye(S) Aspirin 81 mg 11/01/20 09:00 11/03/20 07:43 Aspirin Enteric Coated 81 Mg Tablet.Dr PO 81 mg DAILY WINNIE Administration Atorvastatin Calcium 40 mg 10/31/20 21:00 11/02/20 20:11 Atorvastatin Calcium 40 Mg Tablet PO 40 mg BEDTIME WINNIE Administration Enoxaparin Sodium 40 mg 10/31/20 21:00 11/02/20 20:12 Enoxaparin Sodium 40 Mg/0.4 Ml Syringe SUBCUT 40 mg Q24H WINNIE Administration Furosemide 200 mg/ Sodium 100 mls @ 2.5 mls/hr 10/31/20 21:00 11/02/20 21:28 Chloride IVCONT 5 mg/hr .Q24H WINNIE 2.5 mls/hr Administration 5 MG/HR Insulin Human Lispro 0 unit 10/31/20 21:00 11/03/20 07:38 Insulin Lispro 100 Unit/Ml 3 Ml Vial SUBCUT Not Given QIDACHS [facility] Protocol Ondansetron HCl 4 mg 11/02/20 08:21 11/02/20 08:29 Ondansetron Hcl 4 Mg/2 Ml Vial IVPUSH 4 mg Q8H PRN Administration nausea Pharmacy Consult 1 each 10/31/20 14:37 Consult Rx Perform Med Rec MISCELLANE ONCE PRN Consult order Ranolazine 500 mg 10/31/20 20:06 11/03/20 07:42 Ranolazine 500 Mg Tab.Er.12h PO 500 mg Q12H WINNIE Administration Sodium Chloride 3 ml 11/01/20 00:00 11/03/20 07:46 0.9 % Sodium Chloride Flush 3 Ml Syringe IVFLUSH Not Given QSHIFT WINNIE Spironolactone 12.5 mg 11/01/20 12:20 11/03/20 07:42 Spironolactone 25 Mg Tablet PO 12.5 mg DAILY WINNIE Administration Protocol Valsartan 20 mg 11/02/20 10:35 11/03/20 07:44 Valsartan 40 Mg Tablet PO 20 mg BID WINNIE Administration Protocol Labs CBC & Chem 7: 11/03/20 04:18 11/03/20 04:18 Microbiology Microbiology Results: Microbiology 10/31/20 13:49 Blood - Venous Blood Culture - Preliminary No growth after 48 hours. 10/31/20 10:25 Blood - Venous Blood Culture - Preliminary No growth after 48 hours. Assessment and Plan (1) Ischemic cardiomyopathy: Status: Acute Assessment and Plan: 85M presented with abd pain and sob acute on chronic chf with reduced EF, ischemic still sob started on aldactone 12.5mg, diovan 20mg bid on 5mg/hr lasix cardio following, plan to continue to titrate back on neurohormonals as tolerated question of acute cholecystitis likely not acute cholecystitis and more congestion from chf now with cardiogenic cirrhosis DM insulin sliding scale
--- NOTE | 2020-11-03 10:12 | P.PNCA_ITS ---
Subjective Subjective Date of Service: 11/03/20 Principal diagnosis: CHF Interval history: He is still feeling short of breath. No significant leg swelling. Review of Systems Review of Systems Yes all other systems are reviewed and are negative Cardiovascular: Reports as per HPI, Reports no additional cardiovascular complaints, Denies acrocyanosis, Denies cool extremities, Denies painful fingertips, Denies chest pain, Denies chest pain at rest, Denies diaphoresis, Denies syncope, Denies irregular heart rhythm, Denies claudication, Denies leg edema, Denies lightheadedness, Denies palpitations and Reports dyspnea Respiratory: Reports dyspnea Denies syncope Endocrine: Denies palpitations Physical Exam Vital Signs: Last Vital Signs Temp 97.6 F 11/03/20 07:06 Pulse 80 11/03/20 07:06 Resp 21 H 11/03/20 07:06 BP 116/68 11/03/20 07:06 Pulse Ox 97 11/03/20 07:06 Body Mass Index 22.4 Const General: cooperative, comfortable and no acute distress Orientation/consciousness: patient oriented x3 HENMT Other: Unremarkable Neck Neck: Yes normal visual inspection Chest Chest palpation & inspection: normal inspection of the chest Resp Auscultation: clear to auscultation bilaterally, no crackles and no wheezes Cardio Jugular venous distension: no JVD Palpation: normal PMI Heart sounds: S1 normal heart sound present, S2 normal heart sound present, no gallops, Murmur heart sound present systolic at the apex and no rubs GI Palpation (GI): Soft to palpation Back/Spine/Pelvis Other: unremarkable Skin General skin exam: no rashes or lesions noted Neuro General: patient oriented x3 Extrem General: Yes no clubbing, cyanosis or edema Psych Mental Status: mental status grossly normal Results Labs and Meds Result diagrams: 11/03/20 04:18 11/03/20 04:18 Lab results: Laboratory Results - last 24 hr 11/02/20 11/02/20 11/02/20 11:35 16:09 20:29 WBC RBC Hgb Hct MCV MCH MCHC RDW Plt Count MPV Immature Gran % (Auto) Neut % (Auto) Lymph % (Auto) [place] % (Auto) Eos % (Auto) Baso % (Auto) Lymph # (Auto) [place] # (Auto) Eos # (Auto) Baso # (Auto) Abs Immat Gran (auto) Absolute Neuts (auto) Absolute Nucleated RBC Nucleated RBC % (auto) Sodium Potassium Chloride Carbon Dioxide Anion Gap BUN Creatinine Estim Creat Clear Calc Estimated GFR POC Glucose 126 H 112 120 H Fasting Glucose Calcium B-Natriuretic Peptide 11/03/20 11/03/20 11/03/20 04:18 04:18 04:18 WBC 5.2 RBC 3.57 L Hgb 12.0 L Hct 35.7 L MCV 100.0 H MCH 33.6 H MCHC 33.6 RDW 19.2 H Plt Count 98 L MPV 12.8 H Immature Gran % (Auto) 0.6 H Neut % (Auto) 64.7 Lymph % (Auto) 18.3 L [place] % (Auto) 13.7 H Eos % (Auto) 1.7 Baso % (Auto) 1.0 Lymph # (Auto) 1.0 L [place] # (Auto) 0.7 Eos # (Auto) 0.1 Baso # (Auto) 0.1 Abs Immat Gran (auto) 0.03 Absolute Neuts (auto) 3.4 Absolute Nucleated RBC 0.000 Nucleated RBC % (auto) 0.0 Sodium 139 Potassium 4.0 Chloride 100 Carbon Dioxide 29 Anion Gap 14 BUN 25 H Creatinine 1.25 Estim Creat Clear Calc 36.5 Estimated GFR 55 POC Glucose Fasting Glucose 94 Calcium 8.5 B-Natriuretic Peptide 4183 H 11/03/20 07:27 WBC RBC Hgb Hct MCV MCH MCHC RDW Plt Count MPV Immature Gran % (Auto) Neut % (Auto) Lymph % (Auto) [place] % (Auto) Eos % (Auto) Baso % (Auto) Lymph # (Auto) [place] # (Auto) Eos # (Auto) Baso # (Auto) Abs Immat Gran (auto) Absolute Neuts (auto) Absolute Nucleated RBC Nucleated RBC % (auto) Sodium Potassium Chloride Carbon Dioxide Anion Gap BUN Creatinine Estim Creat Clear Calc Estimated GFR POC Glucose 89 Fasting Glucose Calcium B-Natriuretic Peptide ECG Interpretation: Progress Note: A&P Assessment and plan (1) Acute on chronic systolic (congestive) heart failure: Status: Acute (2) Non-rheumatic mitral regurgitation: Status: Acute Assessment and Plan: Based on input/output balance, he is negative by about 1 liter, but not clear as to how accurate that is. He recently had cardiac resynchronization therapy. Per Dr. Rushing's note, Diovan and Aldactone have been added. He is still on Lasix drip. May continue that for another day or so and then of action. Initial cardiac BNP was 7800 but came down to 3800 but now again going up to 4200. Need to discuss goals of care. Fall Risk Details Current Medications: Current Medications Generic Name Dose Route Start Last Admin Trade Name Freq PRN Reason Stop Dose Admin Artificial Tears 1 drop 10/31/20 20:06 Artificial Tears 15 Ml Drops EYE-BOTH Q4H PRN Dry Eye(S) Aspirin 81 mg 11/01/20 09:00 11/03/20 07:43 Aspirin Enteric Coated 81 Mg Tablet. PO 81 mg DAILY WINNIE Administration Atorvastatin Calcium 40 mg 10/31/20 21:00 11/02/20 20:11 Atorvastatin Calcium 40 Mg Tablet PO 40 mg BEDTIME WINNIE Administration Enoxaparin Sodium 40 mg 10/31/20 21:00 11/02/20 20:12 Enoxaparin Sodium 40 Mg/0.4 Ml Syringe SUBCUT 40 mg Q24H WINNIE Administration Furosemide 200 mg/ Sodium 100 mls @ 2.5 mls/hr 10/31/20 21:00 11/02/20 21:28 Chloride IVCONT 5 mg/hr .Q24H WINNIE 2.5 mls/hr Administration 5 MG/HR Insulin Human Lispro 0 unit 10/31/20 21:00 11/03/20 07:38 Insulin Lispro 100 Unit/Ml 3 Ml Vial SUBCUT Not Given QIDACHS [facility] Protocol Ondansetron HCl 4 mg 11/02/20 08:21 11/02/20 08:29 Ondansetron Hcl 4 Mg/2 Ml Vial IVPUSH 4 mg Q8H PRN Administration nausea Pharmacy Consult 1 each 10/31/20 14:37 Consult Rx Perform Med Rec MISCELLANE ONCE PRN Consult order Ranolazine 500 mg 10/31/20 20:06 11/03/20 07:42 Ranolazine 500 Mg Tab.Er.12h PO 500 mg Q12H WINNIE Administration Sodium Chloride 3 ml 11/01/20 00:00 11/03/20 07:46 0.9 % Sodium Chloride Flush 3 Ml Syringe IVFLUSH Not Given QSHIFT [facility] Spironolactone 12.5 mg 11/01/20 12:20 11/03/20 07:42 Spironolactone 25 Mg Tablet PO 12.5 mg DAILY WINNIE Administration Protocol Valsartan 20 mg 11/02/20 10:35 11/03/20 07:44 Valsartan 40 Mg Tablet PO 20 mg BID WINNIE Administration Protocol Time Spent With Patient Time: Total time spent is greater than 50% in coordination of care (as documented) at patient's floor/unit and/or counseling patient: Time with patient: less than 15 minutes
[2020-11-03 11:00] VITALS: BP 92/54; PULSE 78; RESP 19; TEMP 35.9; O2SAT 100
[2020-11-03 11:33] LABS: Glucose, Whole Blood 123 mg/dL (60-115)
--- NOTE | 2020-11-03 13:53 | MHC.CM.PN ---
CM spoke with ciaran Shetty who is requesting patient to go to [facility] on discharge since patient lives alone and no one to care for him. Patient has been referred to [facility], Reynal[facility]ke[facility] and [facility] pending PT eval. Patient continues on IV Lasix gtt for CHF and 3.5 liters O2 via [place]. CM will continue to follow patient for discharge needs.
[2020-11-03 15:37] VITALS: BP 94/58; PULSE 69; RESP 20; TEMP 36.4; O2SAT 96
[2020-11-03 16:17] LABS: Glucose, Whole Blood 156 mg/dL (60-115)
[2020-11-03] MEDS: Insulin Lispro 100 UNIT/ML 3 ML VIAL SUBCUT (16:47)
[2020-11-03 19:17] VITALS: BP 89/53; PULSE 77; RESP 20; TEMP 36.4; O2SAT 99
[2020-11-03] MEDS: Atorvastatin Calcium 40 MG TABLET PO (20:41)
[2020-11-03] MEDS: Furosemide 200 MG in 0.9 % Sodium Chloride 80 ML IVCONT (20:41)
[2020-11-03] MEDS: Enoxaparin Sodium 40 MG/0.4 ML SYRINGE SUBCUT (20:41)
[2020-11-03 21:12] LABS: Glucose, Whole Blood 117 mg/dL (60-115)
[2020-11-03 23:56] VITALS: BP 103/59; PULSE 69; RESP 18; TEMP 36; O2SAT 99
[2020-11-04 03:39] VITALS: BP 122/70; PULSE 71; RESP 18; TEMP 36.2; O2SAT 97
[2020-11-04 05:45] LABS: MANUAL DIFF FLAG NO
[2020-11-04 05:50] LABS: Basophils Percent Auto 0.4 % (0-2); Eosinophils Absolute Auto 0.1 X10*3/uL (0.0-0.4); Hematocrit 33.4 % (42-52); Hemoglobin 11.5 g/dl (14.0-18.0); Imm Gran Abs Auto 0.02 X10*3/uL (0.00-0.03); Imm Gran Pct Auto 0.4 % (0.0-0.4); Lymphocytes Absolute Auto 0.8 X10*3/uL (1.2-4.9); Lymphocytes Percent Auto 17.8 % (20-40); Mean Corpuscular HGB Conc 34.4 g/dl (31.0-36.0); Mean Corpuscular Hemoglobin 34.2 pg (27.0-33.0); Mean Corpuscular Volume 99.4 fL (80-98); Mean Platelet Volume 12.8 fL (9.4-12.4); Monocytes Absolute Auto 0.7 X10*3/uL (0.1-1.2); Monocytes Percent Auto 14.3 % (2-11); Neutrophils Percent Auto 65.1 % (45-73); Red Blood Count 3.36 X10*6/uL (4.60-5.80); White Blood Count 4.6 X10*3/uL (4.8-10.8)
[2020-11-04 05:57] LABS: Platelet Count 86 X10*3/uL (160-400)
[2020-11-04 06:00] VITALS: BMI 23.3
[2020-11-04 06:35] LABS: Anion Gap 12 (12-20); Blood Urea Nitrogen 29 mg/dL (9-16); Calcium 8.5 mg/dL (8.4-10.2); Carbon Dioxide 29 mmol/L (22-29); Chloride 101 mmol/L (96-108); Estimated Glomerular Filt Rate 57; Glucose Fasting 82 mg/dL (60-99); Sodium 138 mmol/L (135-145)
[2020-11-04 07:22] LABS: Glucose, Whole Blood 102 mg/dL (60-115)
[2020-11-04 07:52] VITALS: BP 94/51; PULSE 76; RESP 16; TEMP 36.1; O2SAT 98
[2020-11-04] MEDS: Spironolactone 25 MG TABLET 12.5 MG PO (07:56)
[2020-11-04] MEDS: Ranolazine 500 MG TAB.ER.12H PO ×2 (07:56→21:26)
[2020-11-04] MEDS: Aspirin Enteric Coated 81 MG TABLET.DR PO (07:56)
[2020-11-04] MEDS: Valsartan 40 MG TABLET 20 MG PO ×2 (07:56→21:26)
[2020-11-04 11:07] VITALS: BP 94/51; PULSE 76; O2SAT 98
[2020-11-04 11:13] LABS: Glucose, Whole Blood 130 mg/dL (60-115)
[2020-11-04 11:19] VITALS: BP 91/51; PULSE 77; RESP 20; TEMP 36.2; O2SAT 96
--- NOTE | 2020-11-04 11:38 | P.PNCA_ITS ---
Subjective Subjective Date of Service: 11/04/20 Principal diagnosis: CHF Interval history: That he feels okay. Still continues to be on the Lasix infusion. Review of Systems Review of Systems Yes all other systems are reviewed and are negative Cardiovascular: Reports as per HPI, Reports no additional cardiovascular complaints, Denies acrocyanosis, Denies cool extremities, Denies painful fingertips, Denies chest pain, Denies chest pain at rest, Denies diaphoresis, Denies syncope, Denies irregular heart rhythm, Denies claudication, Denies leg edema, Denies lightheadedness, Denies palpitations and Reports dyspnea Respiratory: Reports dyspnea Denies syncope Endocrine: Denies palpitations Physical Exam Vital Signs: Last Vital Signs Temp 97.2 F 11/04/20 11:19 Pulse 77 11/04/20 11:19 Resp 20 11/04/20 11:19 BP 91/51 L 11/04/20 11:19 Pulse Ox 96 11/04/20 11:19 Body Mass Index 23.3 Const General: cooperative, comfortable and no acute distress Orientation/consciousness: patient oriented x3 HENMT Other: Unremarkable Neck Neck: Yes normal visual inspection Chest Chest palpation & inspection: normal inspection of the chest Resp Auscultation: no crackles, no wheezes and diminished lung sounds on the left Cardio Jugular venous distension: no JVD Palpation: normal PMI Heart sounds: S1 normal heart sound present, S2 normal heart sound present, no gallops, Murmur heart sound present systolic at the apex and no rubs GI Palpation (GI): Soft to palpation Back/Spine/Pelvis Other: unremarkable Skin General skin exam: no rashes or lesions noted Neuro General: patient oriented x3 Extrem General: Yes no clubbing, cyanosis or edema Psych Mental Status: mental status grossly normal Results Labs and Meds Result diagrams: 11/04/20 05:13 11/04/20 05:13 Lab results: Laboratory Results - last 24 hr 11/03/20 11/03/20 11/04/20 16:08 21:02 05:13 WBC RBC Hgb Hct MCV MCH MCHC RDW Plt Count MPV Immature Gran % (Auto) Neut % (Auto) Lymph % (Auto) [place] % (Auto) Eos % (Auto) Baso % (Auto) Lymph # (Auto) [place] # (Auto) Eos # (Auto) Baso # (Auto) Abs Immat Gran (auto) Absolute Neuts (auto) Absolute Nucleated RBC Nucleated RBC % (auto) Sodium Cancelled Potassium Cancelled Chloride Cancelled Carbon Dioxide Cancelled Anion Gap Cancelled BUN Cancelled Creatinine Cancelled Estim Creat Clear Calc Cancelled Estimated GFR Cancelled POC Glucose 156 H 117 H Random Glucose Cancelled Fasting Glucose Calcium Cancelled 11/04/20 11/04/20 11/04/20 05:13 05:13 07:08 WBC 4.6 L RBC 3.36 L Hgb 11.5 L Hct 33.4 L MCV 99.4 H MCH 34.2 H MCHC 34.4 RDW 19.0 H Plt Count 86 L MPV 12.8 H Immature Gran % (Auto) 0.4 Neut % (Auto) 65.1 Lymph % (Auto) 17.8 L [place] % (Auto) 14.3 H Eos % (Auto) 2.0 Baso % (Auto) 0.4 Lymph # (Auto) 0.8 L [place] # (Auto) 0.7 Eos # (Auto) 0.1 Baso # (Auto) 0.0 Abs Immat Gran (auto) 0.02 Absolute Neuts (auto) 3.0 Absolute Nucleated RBC 0.000 Nucleated RBC % (auto) 0.0 Sodium 138 Potassium 4.0 Chloride 101 Carbon Dioxide 29 Anion Gap 12 BUN 29 H Creatinine 1.21 Estim Creat Clear Calc 38.0 Estimated GFR 57 POC Glucose 102 Random Glucose Fasting Glucose 82 Calcium 8.5 11/04/20 11:06 WBC RBC Hgb Hct MCV MCH MCHC RDW Plt Count MPV Immature Gran % (Auto) Neut % (Auto) Lymph % (Auto) [place] % (Auto) Eos % (Auto) Baso % (Auto) Lymph # (Auto) [place] # (Auto) Eos # (Auto) Baso # (Auto) Abs Immat Gran (auto) Absolute Neuts (auto) Absolute Nucleated RBC Nucleated RBC % (auto) Sodium Potassium Chloride Carbon Dioxide Anion Gap BUN Creatinine Estim Creat Clear Calc Estimated GFR POC Glucose 130 H Random Glucose Fasting Glucose Calcium Progress Note: A&P Assessment and plan (1) Acute on chronic systolic (congestive) heart failure: Status: Acute (2) Non-rheumatic mitral regurgitation: Status: Acute Assessment and Plan: Clinically, no significant volume overload but volume status is difficult to assess and most likely still has pulmonary congestion. May remain on the Lasix drip and actually go up on the dose. Looking at the input output data, he is negative approximately 1.2 L since admission. We can also add a small dose of m etolazone. Otherwise he is on valsartan and spironolactone. I highly doubt if you be able tolerate any beta-carmelo therapy due to blood pressure as well as low cardiac output state. Echocardiogram from yesterday shows LVEF of only 10- 15%. There is clearly significant mitral regurgitation. Overall, unlikely that he will improve much. Need to discuss about goals of care and also consider palliative care options. Fall Risk Details Current Medications: Current Medications Generic Name Dose Route Start Last Admin Trade Name Freq PRN Reason Stop Dose Admin Artificial Tears 1 drop 10/31/20 20:06 Artificial Tears 15 Ml Drops EYE-BOTH Q4H PRN Dry Eye(S) Aspirin 81 mg 11/01/20 09:00 11/04/20 07:56 Aspirin Enteric Coated 81 Mg Tablet.Dr PO 81 mg DAILY WINNIE Administration Atorvastatin Calcium 40 mg 10/31/20 21:00 11/03/20 20:41 Atorvastatin Calcium 40 Mg Tablet PO 40 mg BEDTIME WINNIE Administration Enoxaparin Sodium 40 mg 10/31/20 21:00 11/03/20 20:41 Enoxaparin Sodium 40 Mg/0.4 Ml Syringe SUBCUT 40 mg Q24H WINNIE Administration Furosemide 200 mg/ Sodium 100 mls @ 2.5 mls/hr 10/31/20 21:00 11/03/20 20:41 Chloride IVCONT 5 mg/hr .Q24H WINNIE 2.5 mls/hr Administration 5 MG/HR Insulin Human Lispro 0 unit 10/31/20 21:00 11/04/20 11:30 Insulin Lispro 100 Unit/Ml 3 Ml Vial SUBCUT Not Given QIDACHS WINNIE Protocol Ondansetron HCl 4 mg 11/02/20 08:21 11/02/20 08:29 Ondansetron Hcl 4 Mg/2 Ml Vial IVPUSH 4 mg Q8H PRN Administration nausea Pharmacy Consult 1 each 10/31/20 14:37 Consult Rx Perform Med Rec MISCELLANE ONCE PRN Consult order Ranolazine 500 mg 10/31/20 20:06 11/04/20 07:56 Ranolazine 500 Mg Tab.Er.12h PO 500 mg Q12H WINNIE Administration Sodium Chloride 3 ml 11/01/20 00:00 11/04/20 07:54 0.9 % Sodium Chloride Flush 3 Ml Syringe IVFLUSH Not Given QSHIFT WINNIE Spironolactone 12.5 mg 11/01/20 12:20 11/04/20 07:56 Spironolactone 25 Mg Tablet PO 12.5 mg DAILY WINNIE Administration Protocol Valsartan 20 mg 11/02/20 10:35 11/04/20 07:56 Valsartan 40 Mg Tablet PO 20 mg BID WINNIE Administration Protocol Time Spent With Patient Time: Total time spent is greater than 50% in coordination of care (as documented) at patient's floor/unit and/or counseling patient: Time with patient: less than 15 minutes
[2020-11-04] MEDS: metOLazone 2.5 MG TABLET PO (13:04)
[2020-11-04] MEDS: Furosemide 200 MG in 0.9 % Sodium Chloride 80 ML IVCONT (13:04)
--- NOTE | 2020-11-04 14:16 | HO.PM.IMPN ---
Subjective Subjective Date of Service: 11/04/20 Interval History: still sob, weak Cardiovascular Cardiovascular: Reports no additional cardiovascular complaints Respiratory Respiratory: Reports no additional respiratory complaints Physical Exam Vital Signs: Vital Signs: Last Vital Signs Temp 97.2 F 11/04/20 11:19 Pulse 77 11/04/20 11:19 Resp 20 11/04/20 11:19 BP 91/51 L 11/04/20 11:19 Pulse Ox 96 11/04/20 11:19 Body Mass Index 23.3 General: lethargic O X 3, ill appearing, ancious, dyspneic Resp: diminished CVS: S1,S2,RRR, murmur, jvd, no le edema GI: soft, non tender, non distended Neuro: motor grossly weak Psych: appropriate affect Objective Data Current Medications Generic Name Dose Route Start Last Admin Trade Name Freq PRN Reason Stop Dose Admin Artificial Tears 1 drop 10/31/20 20:06 Artificial Tears 15 Ml Drops EYE-BOTH Q4H PRN Dry Eye(S) Aspirin 81 mg 11/01/20 09:00 11/04/20 07:56 Aspirin Enteric Coated 81 Mg Tablet.Dr PO 81 mg DAILY WINNIE Administration Atorvastatin Calcium 40 mg 10/31/20 21:00 11/03/20 20:41 Atorvastatin Calcium 40 Mg Tablet PO 40 mg BEDTIME WINNIE Administration Enoxaparin Sodium 40 mg 10/31/20 21:00 11/03/20 20:41 Enoxaparin Sodium 40 Mg/0.4 Ml Syringe SUBCUT 40 mg Q24H WINNIE Administration Furosemide 200 mg/ Sodium 100 mls @ 5 mls/hr 11/04/20 12:00 11/04/20 13:04 Chloride IVCONT 10 mg/hr .Q20H WINNIE 5 mls/hr Administration 10 MG/HR Insulin Human Lispro 0 unit 10/31/20 21:00 11/04/20 11:30 Insulin Lispro 100 Unit/Ml 3 Ml Vial SUBCUT Not Given QIDACHS [facility] Protocol Ondansetron HCl 4 mg 11/02/20 08:21 11/02/20 08:29 Ondansetron Hcl 4 Mg/2 Ml Vial IVPUSH 4 mg Q8H PRN Administration nausea Pharmacy Consult 1 each 10/31/20 14:37 Consult Rx Perform Med Rec MISCELLANE ONCE PRN Consult order Ranolazine 500 mg 10/31/20 20:06 11/04/20 07:56 Ranolazine 500 Mg Tab.Er.12h PO 500 mg Q12H WINNIE Administration Sodium Chloride 3 ml 11/01/20 00:00 11/04/20 07:54 0.9 % Sodium Chloride Flush 3 Ml Syringe IVFLUSH Not Given QSHIFT WINNIE Spironolactone 12.5 mg 11/01/20 12:20 11/04/20 07:56 Spironolactone 25 Mg Tablet PO 12.5 mg DAILY WINNIE Administration Protocol Valsartan 20 mg 11/02/20 10:35 11/04/20 07:56 Valsartan 40 Mg Tablet PO 20 mg BID WINNIE Administration Protocol Labs CBC & Chem 7: 11/04/20 05:13 11/04/20 05:13 Microbiology Microbiology Results: Microbiology 10/31/20 13:49 Blood - Venous Blood Culture - Preliminary No growth after 48 hours. 10/31/20 10:25 Blood - Venous Blood Culture - Preliminary No growth after 48 hours. Assessment and Plan (1) Ischemic cardiomyopathy: Status: Acute Assessment and Plan: 85M presented with abd pain and sob acute on chronic chf with reduced EF, ischemic still sob started on aldactone 12.5mg, diovan 20mg bid still with minimal output increase from 5mg/hr to 10mg/hr lasix, metolazone 2.5mg once cardio following question of acute cholecystitis likely not acute cholecystitis and more congestion from chf now with cardiogenic cirrhosis DM insulin sliding scale
[2020-11-04 15:45] VITALS: BP 110/57; PULSE 76; RESP 17; TEMP 35.8; O2SAT 97
[2020-11-04 16:14] LABS: Glucose, Whole Blood 157 mg/dL (60-115)
[2020-11-04] MEDS: Insulin Lispro 100 UNIT/ML 3 ML VIAL SUBCUT (16:50)
[2020-11-04] MEDS: 0.9 % Sodium Chloride Flush 3 ML SYRINGE IVFLUSH (16:51)
[2020-11-04 19:51] VITALS: BP 91/53; PULSE 69; RESP 18; TEMP 36.4; O2SAT 97
[2020-11-04 20:56] LABS: Glucose, Whole Blood 104 mg/dL (60-115)
[2020-11-04] MEDS: Atorvastatin Calcium 40 MG TABLET PO (21:26)
[2020-11-04] MEDS: Enoxaparin Sodium 40 MG/0.4 ML SYRINGE SUBCUT (21:26)
[2020-11-05] VITALS (11 sets, daily range): BP systolic 90–119; BP diastolic 50–79; PULSE 66–78; RESP 18–26; TEMP 35.9–37.1; O2SAT 92–99; BMI 21.7
[2020-11-05] MEDS: Furosemide 200 MG in 0.9 % Sodium Chloride 80 ML IVCONT (01:13)
[2020-11-05 06:46] LABS: Anion Gap 13 (12-20); Blood Urea Nitrogen 28 mg/dL (9-16); Calcium 9.2 mg/dL (8.4-10.2); Carbon Dioxide 35 mmol/L (22-29); Chloride 93 mmol/L (96-108); Estimated Glomerular Filt Rate 56; Glucose Fasting 62 mg/dL (60-99); Potassium 4.2 mmol/L (3.3-5.1); Sodium 137 mmol/L (135-145)
[2020-11-05 06:48] LABS: Lymphocytes Absolute Auto 1.1 X10*3/uL (1.2-4.9); MANUAL DIFF FLAG SCAN; Red Cell Distribution Width 18.6 % (11.0-16.0); SCAN SMEAR FLAG 1
[2020-11-05 06:50] LABS: Basophils Absolute Auto 0.1 X10*3/uL (0.0-0.2); Eosinophils Absolute Auto 0.2 X10*3/uL (0.0-0.4); Eosinophils Percent Auto 2.9 % (0-4); Hematocrit 36.5 % (42-52); Hemoglobin 12.5 g/dl (14.0-18.0); Imm Gran Abs Auto 0.02 X10*3/uL (0.00-0.03); Imm Gran Pct Auto 0.4 % (0.0-0.4); Lymphocytes Percent Auto 20.6 % (20-40); Mean Corpuscular HGB Conc 34.2 g/dl (31.0-36.0); Mean Corpuscular Hemoglobin 33.7 pg (27.0-33.0); Mean Corpuscular Volume 98.4 fL (80-98); Mean Platelet Volume 12.9 fL (9.4-12.4); Monocytes Absolute Auto 0.7 X10*3/uL (0.1-1.2); Monocytes Percent Auto 12.8 % (2-11); Neutrophils Absolute Auto 3.2 X10*3/uL (2.0-8.3); Neutrophils Percent Auto 62.3 % (45-73); Red Blood Count 3.71 X10*6/uL (4.60-5.80); White Blood Count 5.1 X10*3/uL (4.8-10.8)
[2020-11-05 06:53] LABS: Anion Gap 14 (12-20); Blood Urea Nitrogen 28 mg/dL (9-16); Calcium 9.3 mg/dL (8.4-10.2); Carbon Dioxide 34 mmol/L (22-29); Chloride 93 mmol/L (96-108); Estimated Glomerular Filt Rate 56; Glucose Random 61 mg/dL (60-115); Potassium 4.2 mmol/L (3.3-5.1); Sodium 137 mmol/L (135-145)
[2020-11-05 06:58] LABS: PLT ABN DIST 1; Platelet Count 88 X10*3/uL (160-400)
[2020-11-05 06:59] LABS: SLIDE REVIEW VERIFIED
[2020-11-05 07:22] LABS: Glucose, Whole Blood 75 mg/dL (60-115)
[2020-11-05] MEDS: 0.9 % Sodium Chloride Flush 3 ML SYRINGE IVFLUSH ×3 (10:32→23:45)
[2020-11-05] MEDS: Valsartan 40 MG TABLET 20 MG PO ×2 (10:33→21:33)
[2020-11-05] MEDS: Spironolactone 25 MG TABLET 12.5 MG PO (10:34)
[2020-11-05] MEDS: Ranolazine 500 MG TAB.ER.12H PO ×2 (10:34→21:32)
[2020-11-05] MEDS: Aspirin Enteric Coated 81 MG TABLET.DR PO (10:35)
--- NOTE | 2020-11-05 11:08 | P.PNCA_ITS ---
Subjective Subjective Date of Service: 11/05/20 Principal diagnosis: CHF Interval history: He states that he is feeling okay. Has not really done much and mostly in bed. Review of Systems Review of Systems Yes all other systems are reviewed and are negative Cardiovascular: Reports as per HPI, Reports no additional cardiovascular complaints, Denies acrocyanosis, Denies cool extremities, Denies painful fingertips, Denies chest pain, Denies chest pain at rest, Denies diaphoresis, Denies syncope, Denies irregular heart rhythm, Denies claudication, Denies leg edema, Denies lightheadedness, Denies palpitations and Reports dyspnea Respiratory: Reports dyspnea Denies syncope Endocrine: Denies palpitations Physical Exam Vital Signs: Last Vital Signs Temp 96.9 F 11/05/20 07:39 Pulse 78 11/05/20 10:34 Resp 26 H 11/05/20 07:39 BP 94/51 L 11/05/20 10:34 Pulse Ox 97 11/05/20 07:39 Body Mass Index 21.7 Const General: cooperative, comfortable and no acute distress Orientation/consciousness: patient oriented x3 HENMT Other: Unremarkable Neck Neck: Yes normal visual inspection Chest Chest palpation & inspection: normal inspection of the chest Resp Auscultation: no crackles, no wheezes and diminished lung sounds on the left Cardio Jugular venous distension: no JVD Palpation: normal PMI Heart sounds: S1 normal heart sound present, S2 normal heart sound present, no gallops, Murmur heart sound present systolic at the apex and no rubs GI Palpation (GI): Soft to palpation Back/Spine/Pelvis Other: unremarkable Skin General skin exam: no rashes or lesions noted Neuro General: patient oriented x3 Extrem General: Yes no clubbing, cyanosis or edema Psych Mental Status: mental status grossly normal Results Labs and Meds Result diagrams: 11/05/20 05:28 11/05/20 05:28 Lab results: Laboratory Results - last 24 hr 11/04/20 11/04/20 11/04/20 11:06 16:08 20:51 WBC RBC Hgb Hct MCV MCH MCHC RDW Plt Count MPV Immature Gran % (Auto) Neut % (Auto) Lymph % (Auto) [place] % (Auto) Eos % (Auto) Baso % (Auto) Lymph # (Auto) [place] # (Auto) Eos # (Auto) Baso # (Auto) Abs Immat Gran (auto) Absolute Neuts (auto) Absolute Nucleated RBC Nucleated RBC % (auto) Smear Tech's Comments Sodium Potassium Chloride Carbon Dioxide Anion Gap BUN Creatinine Estim Creat Clear Calc Estimated GFR POC Glucose 130 H 157 H 104 Random Glucose Fasting Glucose Calcium 11/05/20 11/05/20 11/05/20 05:28 05:28 05:28 WBC 5.1 RBC 3.71 L Hgb 12.5 L Hct 36.5 L MCV 98.4 H MCH 33.7 H MCHC 34.2 RDW 18.6 H Plt Count 88 L MPV 12.9 H Immature Gran % (Auto) 0.4 Neut % (Auto) 62.3 Lymph % (Auto) 20.6 [place] % (Auto) 12.8 H Eos % (Auto) 2.9 Baso % (Auto) 1.0 Lymph # (Auto) 1.1 L [place] # (Auto) 0.7 Eos # (Auto) 0.2 Baso # (Auto) 0.1 Abs Immat Gran (auto) 0.02 Absolute Neuts (auto) 3.2 Absolute Nucleated RBC 0.000 Nucleated RBC % (auto) 0.0 Smear Tech's Comments VERIFIED Sodium 137 137 Potassium 4.2 4.2 Chloride 93 L 93 L Carbon Dioxide 34 H 35 H Anion Gap 14 13 BUN 28 H 28 H Creatinine 1.24 1.24 Estim Creat Clear Calc 36.0 36.0 Estimated GFR 56 56 POC Glucose Random Glucose 61 Fasting Glucose 62 Calcium 9.3 D 9.2 11/05/20 07:16 WBC RBC Hgb Hct MCV MCH MCHC RDW Plt Count MPV Immature Gran % (Auto) Neut % (Auto) Lymph % (Auto) [place] % (Auto) Eos % (Auto) Baso % (Auto) Lymph # (Auto) [place] # (Auto) Eos # (Auto) Baso # (Auto) Abs Immat Gran (auto) Absolute Neuts (auto) Absolute Nucleated RBC Nucleated RBC % (auto) Smear Tech's Comments Sodium Potassium Chloride Carbon Dioxide Anion Gap BUN Creatinine Estim Creat Clear Calc Estimated GFR POC Glucose 75 Random Glucose Fasting Glucose Calcium Progress Note: A&P Assessment and plan (1) Acute on chronic systolic (congestive) heart failure: Status: Acute (2) Non-rheumatic mitral regurgitation: Status: Acute Assessment and Plan: He has had multiple admissions for congestive heart failure and recently also underwent cardiac resynchronization therapy. He has been on Lasix drip since admission. Clinically, likely still having pulmonary congestion. Not much of peripheral edema. Unlikely that he will make any meaningful recovery. Discussed about this in detail with the patient using a public relations director and also discussed with the patient's daughter. I think palliative care/hospice is very reasonable in this setting. They are willing to explore this option. Hence, once this is sorted out, can plan his diuretic therapy and further care. Fall Risk Details Current Medications: Current Medications Generic Name Dose Route Start Last Admin Trade Name Freq PRN Reason Stop Dose Admin Artificial Tears 1 drop 10/31/20 20:06 Artificial Tears 15 Ml Drops EYE-BOTH Q4H PRN Dry Eye(S) Aspirin 81 mg 11/01/20 09:00 11/05/20 10:35 Aspirin Enteric Coated 81 Mg Tablet.Dr PO 81 mg DAILY WINNIE Administration Atorvastatin Calcium 40 mg 10/31/20 21:00 11/04/20 21:26 Atorvastatin Calcium 40 Mg Tablet PO 40 mg BEDTIME WINNIE Administration Enoxaparin Sodium 40 mg 10/31/20 21:00 11/04/20 21:26 Enoxaparin Sodium 40 Mg/0.4 Ml Syringe SUBCUT 40 mg Q24H WINNIE Administration Furosemide 200 mg/ Sodium 100 mls @ 5 mls/hr 11/04/20 12:00 11/05/20 10:32 Chloride IVCONT Not Given .Q20H WINNIE 10 MG/HR Insulin Human Lispro 0 unit 10/31/20 21:00 11/05/20 07:41 Insulin Lispro 100 Unit/Ml 3 Ml Vial SUBCUT Not Given [facility] Protocol Ondansetron HCl 4 mg 11/02/20 08:21 11/02/20 08:29 Ondansetron Hcl 4 Mg/2 Ml Vial IVPUSH 4 mg Q8H PRN Administration nausea Pharmacy Consult 1 each 10/31/20 14:37 Consult Rx Perform Med Rec MISCELLANE ONCE PRN Consult order Ranolazine 500 mg 10/31/20 20:06 11/05/20 10:34 Ranolazine 500 Mg Tab.Er.12h PO 500 mg Q12H WINNIE Administration Sodium Chloride 3 ml 11/01/20 00:00 11/05/20 10:32 0.9 % Sodium Chloride Flush 3 Ml Syringe IVFLUSH 3 ml QSHIFT WINNEI Administration Spironolactone 12.5 mg 11/01/20 12:20 11/05/20 10:34 Spironolactone 25 Mg Tablet PO 12.5 mg DAILY WINNIE Administration Protocol Valsartan 20 mg 11/02/20 10:35 11/05/20 10:33 Valsartan 40 Mg Tablet PO 20 mg BID WINNIE Administration Protocol Time Spent With Patient Time: Total time spent is greater than 50% in coordination of care (as documented) at patient's floor/unit and/or counseling patient: Time with patient: 15 - 24 minutes
[2020-11-05 11:14] LABS: Glucose, Whole Blood 143 mg/dL (60-115)
--- NOTE | 2020-11-05 13:56 | MHC.CM.PN ---
Patient is on 2 liters O2 and IV Lasix gtt. PT is recommending STR, Mike, DINAH, Reynaldo Denis and Jaylin of are following patient. MD will have goals of care discussion with family. Patient will need BLS transport. CM will continue to follow patient for discharge needs.
--- NOTE | 2020-11-05 14:52 | W.MHC.ACPN ---
Advanced Care Planning Note Advanced Care Planning Note Discussed with: family member(s) Time spent (in minutes): 16 Narrative: I had a chance to speak with the patient healthcare proxy Sena to discuss ongoing medical problems and goals of care.. The patient was admitted to the hospital for evaluation of shortness of breath. Found to be in acute on chronic CHF exacerbation with cardiomyopathy with decreased systolic function requiring oxygen supplement and treatment with Lasix drip with some improvement over the course of hospital stay. Discussing primary cardiology team do believe the patient likely need recurrent hospital admissions with worsening heart function. I discussed these findings with healthcare proxy suggestion to consider hospice care as the possible next in taking care with the patient. She seems to be agreeable to the plan as she took at home with hospice care and she had a good experience with them. To refer the case for case management. Will continue to follow with the family. Problems Discussed (1) Acute on chronic systolic (congestive) heart failure: (2) Non-rheumatic mitral regurgitation:
--- NOTE | 2020-11-05 14:53 | HO.PM.IMPN ---
Subjective Subjective Date of Service: 11/05/20 Interval History: the patient was seen and evaluated this morning Laying in bed, feels comfortable overall, still 2 L of oxygen Denies any fever, chills or shortness of breath No reported other overnight events. Systemic review: No fever, chills but reports generalized weakness No chest pain, palpitation No shortness of breath or coughing No abdominal pain, nausea or vomiting No urinary symptoms No any rash or wounds Physical Exam Vital Signs: Vital Signs: Last Vital Signs Temp 97.2 F 11/05/20 11:43 Pulse 74 11/05/20 11:43 Resp 20 11/05/20 11:43 BP 96/54 L 11/05/20 11:43 Pulse Ox 99 11/05/20 11:43 Body Mass Index 21.7 Const: Other: Constitutional : Alert, oriented, not in distress Neck : Normal inspection, Supple, mildly elevated JVP Cardiovascular : RRR, S1 S2, no lower extremity edema Respiratory : Fair bilateral air entry, no crackles, wheezes or rhonchi on 2 L of oxygen Gastrointestinal: soft, lax, Normal bowel sounds, Non tender Skin : Warm/Dry, No rash Neurological : Alert & oriented x3, No focal deficit Objective Data Current Medications Generic Name Dose Route Start Last Admin Trade Name Freq PRN Reason Stop Dose Admin Artificial Tears 1 drop 10/31/20 20:06 Artificial Tears 15 Ml Drops EYE-BOTH Q4H PRN Dry Eye(S) Aspirin 81 mg 11/01/20 09:00 11/05/20 10:35 Aspirin Enteric Coated 81 Mg Tablet.Dr PO 81 mg DAILY WINNIE Administration Atorvastatin Calcium 40 mg 10/31/20 21:00 11/04/20 21:26 Atorvastatin Calcium 40 Mg Tablet PO 40 mg BEDTIME WINNIE Administration Enoxaparin Sodium 40 mg 10/31/20 21:00 11/04/20 21:26 Enoxaparin Sodium 40 Mg/0.4 Ml Syringe SUBCUT 40 mg Q24H WINNIE Administration Furosemide 200 mg/ Sodium 100 mls @ 5 mls/hr 11/04/20 12:00 11/05/20 10:32 Chloride IVCONT Not Given .Q20H WINNIE 10 MG/HR Insulin Human Lispro 0 unit 10/31/20 21:00 11/05/20 11:19 Insulin Lispro 100 Unit/Ml 3 Ml Vial SUBCUT Not Given QIDACHS WINNIE Protocol Ondansetron HCl 4 mg 11/02/20 08:21 11/02/20 08:29 Ondansetron Hcl 4 Mg/2 Ml Vial IVPUSH 4 mg Q8H PRN Administration nausea Pharmacy Consult 1 each 10/31/20 14:37 Consult Rx Perform Med Rec MISCELLANE ONCE PRN Consult order Ranolazine 500 mg 10/31/20 20:06 11/05/20 10:34 Ranolazine 500 Mg Tab.Er.12h PO 500 mg Q12H WINNIE Administration Sodium Chloride 3 ml 11/01/20 00:00 11/05/20 10:32 0.9 % Sodium Chloride Flush 3 Ml Syringe IVFLUSH 3 ml QSHIFT WINNIE Administration Spironolactone 12.5 mg 11/01/20 12:20 11/05/20 10:34 Spironolactone 25 Mg Tablet PO 12.5 mg DAILY WINNIE Administration Protocol Valsartan 20 mg 11/02/20 10:35 11/05/20 10:33 Valsartan 40 Mg Tablet PO 20 mg BID WINNIE Administration Protocol Labs CBC & Chem 7: 11/05/20 05:28 11/05/20 05:28 Microbiology Microbiology Results: Microbiology 10/31/20 10:25 Blood - Venous Blood Culture - Final No growth after 5 days. 10/31/20 13:49 Blood - Venous Blood Culture - Preliminary No growth after 48 hours. Assessment and Plan (1) Acute on chronic systolic (congestive) heart failure: Status: Acute (2) Non-rheumatic mitral regurgitation: Status: Acute Assessment and Plan: 85M presented with abd pain and sob acute on chronic chf with reduced EF, ischemic Shortness of breath improving Continue aldactone 12.5mg, diovan 20mg bid Significant output of almost 6 L over the last 24 hours Decreased to 5 mg/hr lasix cardio input appreciated consider hospice To do hospice care evaluation question of acute cholecystitis likely not acute cholecystitis and more congestion from chf now with cardiogenic cirrhosis DM insulin sliding scale DVT PPX Lovenox
--- NOTE | 2020-11-05 15:50 | MHC.CM.PN ---
ordered Hospice consult, referral made to [facility] for informational visit.
[2020-11-05 16:44] LABS: Glucose, Whole Blood 147 mg/dL (60-115)
[2020-11-05] MEDS: Furosemide 40 MG/4 ML VIAL IVPUSH (18:08)
[2020-11-05 20:52] LABS: Glucose, Whole Blood 182 mg/dL (60-115)
[2020-11-05] MEDS: Insulin Lispro 100 UNIT/ML 3 ML VIAL SUBCUT (21:32)
[2020-11-05] MEDS: Enoxaparin Sodium 40 MG/0.4 ML SYRINGE SUBCUT (21:32)
[2020-11-05] MEDS: Atorvastatin Calcium 40 MG TABLET PO (21:32)
[2020-11-06] VITALS (10 sets, daily range): BP systolic 83–107; BP diastolic 50–57; PULSE 70–77; RESP 18–20; TEMP 36–37.1; O2SAT 95–99; BMI 21.2
--- NOTE | 2020-11-06 03:21 | PC.NURSE ---
At 0304, patient had a 4 beat run then 5 beat run. Patient asymptomatic, made aware.
[2020-11-06 06:51] LABS: Hematocrit 34.7 % (42-52); Hemoglobin 12.2 g/dl (14.0-18.0); Mean Corpuscular HGB Conc 35.2 g/dl (31.0-36.0); Mean Corpuscular Hemoglobin 33.7 pg (27.0-33.0); Mean Corpuscular Volume 95.9 fL (80-98); Mean Platelet Volume 12.4 fL (9.4-12.4); Platelet Count 107 X10*3/uL (160-400); Red Blood Count 3.62 X10*6/uL (4.60-5.80); Red Cell Distribution Width 18.2 % (11.0-16.0)
[2020-11-06 06:54] LABS: Anion Gap 13 (12-20); Blood Urea Nitrogen 30 mg/dL (9-16); Calcium 8.9 mg/dL (8.4-10.2); Carbon Dioxide 34 mmol/L (22-29); Chloride 91 mmol/L (96-108); Creatinine Clr Calc Pharmacy 37.9; Estimated Glomerular Filt Rate > 60; Glucose Random 83 mg/dL (60-115); Sodium 134 mmol/L (135-145)
[2020-11-06 07:23] LABS: Glucose, Whole Blood 86 mg/dL (60-115)
[2020-11-06] MEDS: Ranolazine 500 MG TAB.ER.12H PO ×2 (08:43→18:59)
[2020-11-06] MEDS: Spironolactone 25 MG TABLET 12.5 MG PO (08:43)
[2020-11-06] MEDS: Aspirin Enteric Coated 81 MG TABLET.DR PO (08:44)
[2020-11-06] MEDS: Valsartan 40 MG TABLET 20 MG PO (08:45)
--- NOTE | 2020-11-06 08:52 | MHC.CM.PN ---
ELBA spoke with Xena at [facility] and patient's dtr/HCP Sena. Plan is for patient to go home with Hospice services. Sena states they will have 24/7 care in the home. Renea from [facility] updated. made aware. ELBA will continue to follow for discharge needs.
[2020-11-06 11:06] LABS: Glucose, Whole Blood 132 mg/dL (60-115)
--- NOTE | 2020-11-06 11:46 | W.MHC.ACPN ---
Advanced Care Planning Note Advanced Care Planning Note Discussed with: family member(s) Time spent (in minutes): 18 Narrative: I a chance I had a chance to speak with the patient's healthcare proxy multiple occasions yesterday today to arrange for care after hospital discharge. We discussed the possibility of hospice care yesterday. I told her hospital patient is doing today he feels more nebs stable. She ended to to the hospice team and it seems were all agree on hospice at home the next step. Explained to the Na COVID status changes patient home to be hospice. We went over the MOLST form and the paper over the phone. Plan to discharge the patient home tomorrow on hospice measures Problems Discussed (1) Acute on chronic systolic (congestive) heart failure: (2) Non-rheumatic mitral regurgitation:
--- NOTE | 2020-11-06 11:51 | HO.PM.IMPN ---
Subjective Subjective Date of Service: 11/06/20 Interval History: the patient was seen and evaluated this morning Laying in bed, feels comfortable overall, still 2 L of oxygen Denies any fever, chills or shortness of breath No reported other overnight events. Systemic review: No fever, chills but reports generalized weakness No chest pain, palpitation No shortness of breath or coughing No abdominal pain, nausea or vomiting No urinary symptoms No any rash or wounds Physical Exam Vital Signs: Vital Signs: Last Vital Signs Temp 97.6 F 11/06/20 11:04 Pulse 70 11/06/20 11:04 Resp 18 11/06/20 11:04 BP 95/51 L 11/06/20 11:04 Pulse Ox 99 11/06/20 11:04 Body Mass Index 21.2 Const: Other: Constitutional : Alert, oriented, not in distress Neck : Normal inspection, Supple, mildly elevated JVP Cardiovascular : RRR, S1 S2, no lower extremity edema Respiratory : Fair bilateral air entry, no crackles, wheezes or rhonchi on 2 L of oxygen Gastrointestinal: soft, lax, Normal bowel sounds, Non tender Skin : Warm/Dry, No rash Neurological : Alert & oriented x3, No focal deficit Objective Data Current Medications Generic Name Dose Route Start Last Admin Trade Name Freq PRN Reason Stop Dose Admin Artificial Tears 1 drop 10/31/20 20:06 Artificial Tears 15 Ml Drops EYE-BOTH Q4H PRN Dry Eye(S) Aspirin 81 mg 11/01/20 09:00 11/06/20 08:44 Aspirin Enteric Coated 81 Mg Tablet. PO 81 mg DAILY WINNIE Administration Atorvastatin Calcium 40 mg 10/31/20 21:00 11/05/20 21:32 Atorvastatin Calcium 40 Mg Tablet PO 40 mg BEDTIME WINNIE Administration Enoxaparin Sodium 40 mg 10/31/20 21:00 11/05/20 21:32 Enoxaparin Sodium 40 Mg/0.4 Ml Syringe SUBCUT 40 mg Q24H WINNIE Administration Furosemide 40 mg 11/06/20 11:45 Furosemide 40 Mg Tablet PO BID@0900,1800 [facility] Protocol Insulin Human Lispro 0 unit 10/31/20 21:00 11/06/20 08:39 Insulin Lispro 100 Unit/Ml 3 Ml Vial SUBCUT Not Given QIDACHS [facility] Protocol Ondansetron HCl 4 mg 11/02/20 08:21 11/02/20 08:29 Ondansetron Hcl 4 Mg/2 Ml Vial IVPUSH 4 mg Q8H PRN Administration nausea Pharmacy Consult 1 each 10/31/20 14:37 Consult Rx Perform Med Rec MISCELLANE ONCE PRN Consult order Ranolazine 500 mg 10/31/20 20:06 11/06/20 08:43 Ranolazine 500 Mg Tab.Er.12h PO 500 mg Q12H WINNIE Administration Sodium Chloride 3 ml 11/01/20 00:00 11/06/20 08:51 0.9 % Sodium Chloride Flush 3 Ml Syringe IVFLUSH Not Given QSHIFT WINNIE Spironolactone 12.5 mg 11/01/20 12:20 11/06/20 08:43 Spironolactone 25 Mg Tablet PO 12.5 mg DAILY WINNIE Administration Protocol Valsartan 20 mg 11/02/20 10:35 11/06/20 08:45 Valsartan 40 Mg Tablet PO 20 mg BID WINNIE Administration Protocol Labs CBC & Chem 7: 11/06/20 05:29 11/06/20 05:29 Microbiology Microbiology Results: Microbiology 10/31/20 13:49 Blood - Venous Blood Culture - Final No growth after 5 days. 10/31/20 10:25 Blood - Venous Blood Culture - Final No growth after 5 days. Assessment and Plan (1) Acute on chronic systolic (congestive) heart failure: Status: Acute (2) Non-rheumatic mitral regurgitation: Status: Acute Assessment and Plan: 85M presented with abd pain and sob acute on chronic chf with reduced EF, ischemic Shortness of breath improving Continue aldactone 12.5mg, diovan 20mg bid Significant output of almost 6 L over the last 48 hours DC lasix infusion Start PO lasix today cardio input appreciated consider hospice question of acute cholecystitis likely not acute cholecystitis and more congestion from chf now with cardiogenic cirrhosis DM insulin sliding scale DVT PPX Lovenox
[2020-11-06] MEDS: Furosemide 40 MG TABLET PO ×2 (13:11→18:59)
[2020-11-06 15:48] LABS: Glucose, Whole Blood 167 mg/dL (60-115)
[2020-11-06] MEDS: Insulin Lispro 100 UNIT/ML 3 ML VIAL SUBCUT (15:59)
[2020-11-06 20:29] LABS: Glucose, Whole Blood 143 mg/dL (60-115)
[2020-11-06] MEDS: Atorvastatin Calcium 40 MG TABLET PO (21:42)
[2020-11-06] MEDS: Enoxaparin Sodium 40 MG/0.4 ML SYRINGE SUBCUT (21:43)
[2020-11-07] VITALS: BP 103/54; PULSE 76; RESP 16; TEMP 36.7; O2SAT 96
[2020-11-07 03:22] VITALS: BP 88/50; PULSE 74; RESP 12; TEMP 36.4; O2SAT 90
[2020-11-07 05:26] VITALS: BMI 20.5
[2020-11-07 07:27] LABS: Glucose, Whole Blood 101 mg/dL (60-115)
[2020-11-07 08:00] VITALS: BP 100/51; PULSE 73; RESP 20; TEMP 36.7; O2SAT 96
[2020-11-07 08:40] VITALS: PULSE 74; PULSE 80; PULSE 84; O2SAT 93; O2SAT 99
[2020-11-07] MEDS: Valsartan 40 MG TABLET 20 MG PO (10:20)
[2020-11-07] MEDS: Ranolazine 500 MG TAB.ER.12H PO (10:20)
[2020-11-07] MEDS: Furosemide 40 MG TABLET PO (10:21)
[2020-11-07] MEDS: Aspirin Enteric Coated 81 MG TABLET.DR PO (10:21)
[2020-11-07] MEDS: 0.9 % Sodium Chloride Flush 3 ML SYRINGE IVFLUSH (10:23)
[2020-11-07] MEDS: Spironolactone 25 MG TABLET 12.5 MG PO (10:23)
[2020-11-07 11:18] LABS: Glucose, Whole Blood 147 mg/dL (60-115)
--- NOTE | 2020-11-07 11:31 | MHC.CM.PN ---
IMM 11/07/20 Male 85 DX HF is discharged today with NA. Molst form sent to [facility]. Original Molst sent home with the Pt. BLS is booked for 2pm. T/W has spoken with the patients Rosaura wagoner. [facility] care transitions, Renea Mccray is aware of the discharge to home with Hospice services.
[2020-11-07 11:46] VITALS: BP 98/56; PULSE 75; RESP 20; TEMP 37.1; O2SAT 96
--- NOTE | 2020-11-07 12:12 | PM.DS ---
DS: Providers Provider Date of Service: 11/07/20 Date of admission: 10/31/20 16:40 Primary care physician: Caroline Rudolph DO Consults: 10/31/20 20:06 Consult to Cardiology Routine Consulting Provider: Martínez Rushing Reason for consultation: chf DS: Diagnosis Discharge Diagnosis (1) Acute on chronic systolic (congestive) heart failure: Status: Acute (2) Non-rheumatic mitral regurgitation: Status: Acute (3) Acute exacerbation of congestive heart failure: Status: Acute DS: Medications Discharge Medications Home Medications: Home Medications Medication Instructions Recorded Confirmed Combivent Respimat 1 puff INHALATION QID 08/06/20 10/31/20 Trulicity 0.75 mg SUBCUT FR 09/01/20 10/31/20 aspirin 81 mg PO DAILY 09/01/20 10/31/20 atorvastatin 80 mg PO DAILY 09/01/20 10/31/20 famotidine 20 mg PO BID 09/01/20 10/31/20 polyvinyl alcohol [Artificial 1 drp OPHTHALMIC (EYE) Q4H PRN 09/01/20 10/31/20 Tears (polyvin alc)] ranolazine 500 mg PO BID 09/01/20 10/31/20 furosemide 40 mg PO BID@08,12 10/31/20 10/31/20 Previous Rx's Medication Instructions Recorded spironolactone 12.5 mg PO DAILY #30 tab 11/07/20 valsartan 20 mg PO BID #30 tab 11/07/20 DS: Summary Hospital Course Hospital Course: Admission note HPI 85M with pmh of ischemic cardiomyopathy with EF 15%, pulmonary htn, severe TR and MR. with frequent readmissions for CHF, most recently discharged 10/23/20 after being diuresed for chf and worked up for concern of acute cholecystitis, although, HIDA ended up being negative. now presented with abdominal pain, anorexia, n/v for 3-5 days with worsening shortness of breath and increased weakness. denies fever, chills. in ED found to have higher bnp than previous, CT showed gallstones and GB wall thickening. surgery was consulted and recommended repeatiing HIDA, this was not fully completed due to shortness of breath, but initial images were able to show gallbladder making acute cholecystitis less likely. cxr revealed chf. Hospital course The patient was admitted to the hospital for treatment of shortness of breath and abdominal pain. A CT scan of the abdomen and pelvis showed possibility of acute cholecystitis. The patient was evaluated by surgical team as pain improved with usage of diuresis. Changes on the CT scan were explained by edema to the wall from heart failure. Patient was able to tolerate diet well and the pain resolved. He was treated mainly for acute on chronic CHF exacerbation with usage of IV Lasix infusion of 6 days with significant urine output with total negative of 8-9 L. Patient breathing improved significantly after and he was weaned down to room air at the day of discharge. Discussions with family about goals of care with plan to discharge the patient home with hospice care. Neurohormonal medications adjustment was done by Cardiology with addition of Aldactone and Diovan. Time Spent with Patient Time attestation: Total time spent providing and/or coordinating discharge services: Discharge coordination time: Greater than 30 minutes Physical Exam Vital Signs: Vital Signs: Last Vital Signs Temp 98.7 F 11/07/20 11:46 Pulse 75 11/07/20 11:46 Resp 20 11/07/20 11:46 BP 98/56 L 11/07/20 11:46 Pulse Ox 96 11/07/20 11:46 Body Mass Index 20.5 Const: Other: Constitutional : Alert, oriented, not in distress Neck : Normal inspection, Supple, mildly elevated JVP Cardiovascular : RRR, S1 S2, no lower extremity edema Respiratory : Fair bilateral air entry, no crackles, wheezes or rhonchi \ Gastrointestinal: soft, lax, Normal bowel sounds, Non tender Skin : Warm/Dry, No rash Neurological : Alert & oriented x3, No focal deficit DS: Data Data Completed and Pending Labs on day of discharge: Laboratory Results - last 24 hr 11/06/20 11/06/20 11/07/20 15:39 20:18 07:17 POC Glucose 167 H 143 H 101 11/07/20 11:11 POC Glucose 147 H Discharge Plan Discharge Patient Disposition: Hospice - Home Discharge Diagnosis: acute heart failure exacerbation Referrals: Caroline Rudolph DO [Primary Care Provider] - 1 Week Discharge Medications: New spironolactone 25 mg Tablet 12.5 mg PO DAILY Qty: 30 RF: 0 valsartan 40 mg Tablet 20 mg PO BID Qty: 30 RF: 0 Continued Combivent Respimat 20-100 mcg/actuation Mist 1 puff INHALATION QID RF: 0 furosemide 80 mg tablet 40 mg PO BID@08,12 RF: 0 polyvinyl alcohol [Artificial Tears (polyvin alc)] 1.4 % Drops 1 drp OPHTHALMIC (EYE) Q4H PRN (Reason: Dry Eye(S)) RF: 0 Trulicity 0.75 mg/0.5 mL Pen Injector 0.75 mg SUBCUT FR RF: 0 atorvastatin 80 mg Tablet 80 mg PO DAILY RF: 0 Hold Instructions: Resume on 10/31/20. ranolazine 500 mg Tablet Extended Release 12 Hr 500 mg PO BID RF: 0 aspirin 81 mg Tablet,Delayed Release (Dr/Ec) 81 mg PO DAILY RF: 0 famotidine 20 mg Tablet 20 mg PO BID RF: 0 Discharge Orders: Discharge Order (Routine); Ordered 11/07/20 Ordered By: Papito Ryan Diet: advance to usual diet Activity on Discharge: As tolerated Stand Alone Forms: Patient Portal Discharge page Care Plan Goals: Read below Health Concerns: Read below Plan of Treatment: You were admitted to the hospital for treatment of heart failure attack requiring IV and oral medications. Evaluated by garage door service technician who adjusted some of your home medications. You have improved significantly during the hospital stay with decrease oxygen supplement to 2 L. Discussions with hospice team with plan to go home on hospice measures. Assessment: To start spironolactone and valsartan as prescribed Continue home dose Lasix
== END 2020-11-07 14:09 | disposition hospice, home (50) | DRG 293 ==
LOC: HO.ED 16:09 → HO.EDOVER 16:50 → HO.IMC 18:01
PROVIDERS: Internal Medicine Cardiovascular Disease; Physician Assistant Medical; Admitting Provider Internal Medicine; Emergency Provider Emergency Medicine; PCP Family Medicine; Visit Provider Student in an Organized Health Care Education/Training Program
DX: I50.23 Acute on chronic systolic (congestive) heart failure (principal); I25.2 Old myocardial infarction; K80.80 Other cholelithiasis without obstruction; K74.60 Unspecified cirrhosis of liver; E11.9 Type 2 diabetes mellitus without complications; I34.0 Nonrheumatic mitral (valve) insufficiency; I25.5 Ischemic cardiomyopathy; I25.10 Atherosclerotic heart disease of native coronary artery without angina pectoris; Z20.822 Contact with and (suspected) exposure to COVID-19; Z95.1 Presence of aortocoronary bypass graft; Z87.891 Personal history of nicotine dependence; Z79.82 Long term (current) use of aspirin; Z79.899 Other long term (current) drug therapy
CPT/HCPCS: 0241U; 36415; 70450; 71046; 74177; 78226; 80048; 80053; 80076; 81003; 82947; 83605; 83735; 83880; 84484; 85025; 85027; 85610; 87040; 93005; 93308; 96365; 96375; 97162; 99285; 99291; A9537; C1758; J1650; J1940; J2405; J2543; Q9967